=== PATIENT | female | born 1960 | race Caucasian/White ===

== ENCOUNTER 2021-01-03 08:34 | Outpatient (CLI) | payer MEDICARE, SELFPAY ==
--- NOTE | ~2021-01-03 | XR_ITS ---
MODIFIED ESOPHAGRAM HISTORY: Dysphagia. Stroke. TECHNIQUE: Modified barium esophagram was performed on 01/03/2021. I administered fluoroscopy and perfo rmed the exam with speech pathologist. Patient was seated for lateral fluoroscopic imaging for inges tion of thin liquids, pudding, solids and quantified amounts, followed by thin liquids in uncontrolle d amounts. This was recorded on tape. A single fluoroscopic spot image was also recorded. The DAP for this procedure was 2.101 Gycm2. The amount of fluoroscopy time used during this procedure was 2.8 mi nutes. FINDINGS: Oral stage: Moderate oral dysphagia in the preparatory and transit stage.. Pharyngeal stage: Reduced laryngeal elevation with transient laryngeal penetration without aspiration . Cervical/esophageal stage: Adequate function. IMPRESSION: Moderate oral and mild pharyngeal dysphagia with transient laryngeal penetration without aspiration. Please correlate with speech pathologist findings and specific feeding recommendations. Reviewed, dictated and finalized at location [facility]. IMPRESSION: Moderate oral and mild pharyngeal dysphagia with transient laryngea l penetration without aspiration. Please correlate with speech pathologist milton grullon and specific feeding recommendations.
--- NOTE | 2021-01-03 14:03 | STOPEVAL ---
MODIFIED BARIUM SWALLOW EVALUATION: Thank you for referring Marilyn Ram to [facility].? Attending Provider: Ирина Watts Outpatient Past Medical History Past Medical History Source of Past Medical History [facility] Records Neurological History Hx Cerebrovascular Accident (CVA) Yes: with aphasia, ataxia, dysphagia,memory impairment, & HP Cardiovascular History Hx Hypertension Yes Respiratory History Hx Bronchitis Yes Hx Chronic Obstructive Pulmonary Disease Yes (COPD) Gastrointestinal History Hx Gastroesophageal Reflux Disease Yes Hx Other Gastrointestinal Disorders Yes: G-tube Musculoskeletal History Hx Other Musculoskeletal Disorders Yes: generalized muscle weakness; h/o falling HEENT History Hx Other HEENT Disorders Yes: allergic rhinitis Psychosocial History Hx Anxiety Yes Hx Depression Yes Pain History Has Past Pain Affected Your Daily Life Yes: acute pain due to trauma Other History Hx Other Medical Conditions Yes: Vitamin D & iron deficiencies; hypercholesterolemia Prior Level of Function Prior Swallow Level Prior Intake Method NPO/PEG Modified Barium Swallow Evaluation Recent Swallowing History Reports Dysphagia Yes: per [place] records Onset of Dysphagia unknown onset History of Related Medical Diagnosis CVA History of Pneumonia No Reported Difficult Consistencies Unable to Identify Intake Method Prior to Swallow Gastrostomy,NPO Evaluation Dentition Comments missing teeth Consistency Solid Consistency Other Amount crumbled Method of Presentation Spoon Oral Preparatory Symptoms Anterior Loss,Loss of Bolus Control,Premature Spill Posterior Oral Phase Symptoms Disturbed Lingual Movement, Residue in Lateral Sulcus,Slow Oral Transit Oral Phase Comments slow and difficulty formulating contents into a bolus Pharyngeal Phase Symptoms Within Functional Limits Severity of Vallecular Residue None - 0% No Residue Severity of Pyriform Sinus Residue None - 0% No Residue 8 Point Laryngeal Penetration-Aspiration Material Does Not Enter Airway Scale Cervical/Esophageal Symptoms Within Functional Limits Pureed Consistency Method of Presentation Spoon Oral Preparatory Symptoms Anterior Loss,Loss of Bolus Control Oral Preparatory Phase Comments oral leakage but pt also spit out a portion of contents Oral Phase Symptoms Disturbed Lingual Moveme
== END 2021-01-03 08:35 | disposition home or self-care (01) ==
PROVIDERS: PCP Internal Medicine
DX: R13.10 Dysphagia, unspecified (principal)
CPT/HCPCS: 92611

== ENCOUNTER 2021-01-18 15:51 | Inpatient (IN) | payer MEDICARE, SELFPAY ==
[2021-01-18] VITALS (9 sets, daily range): BP systolic 168–201; BP diastolic 73–99; PULSE 80–106; RESP 18–20; TEMP 37.1–37.2; O2SAT 95–100; BMI 20.1
--- NOTE | ~2021-01-18 | XR_ITS ---
XR abdomen obstructive series DATE: 01/18/2021 16:52 INDICATION: Nausea and vomiting for one month TECHNIQUE: Portable supine and upright AP view COMPARISON: None FINDINGS: There are healing fractures of the anterolateral aspect of the fifth through ninth ribs. Multiple faceted calcified gallstones are noted overlying the right upper quadrant. The gastrostomy tube overlies the medial right upper quadrant. No bowel obstruction or free air. Normal heart size. The lungs are clear. IMPRESSION: Cholelithiasis Gastrostomy tube Healing right rib fractures Reviewed, dictated and finalized at [facility]. Reviewed, dictated and finalized at location [facility].
--- NOTE | ~2021-01-18 | CT_ITS ---
EXAMINATION: CT abdomen pelvis w con DATE: 01/18/2021 18:08 INDICATION: Abdominal pain, nausea and vomiting TECHNIQUE: Computed tomography (CT) of the abdomen and pelvis was performed with 100 cc Omnipaque 350 intravenous contrast. Automated exposure control and iterative reconstruction technique were employe d. Exam dose: 228.70 mGy-cm total exam DLP. COMPARISON: 01/18/2021 obstructive series FINDINGS: There is discoid atelectasis or scarring in the dependent left and right lower lobes and to a lesser extent middle lobe. Multiple healing anterolateral right lower ribs. Normal heart size. No pericardial or pleural effusion. There are multiple faceted gallstones. There is gallbladder wall thickening and mild pericholecystic fluid or fat stranding suggesting acute cholecystitis. No bile duct or pancreatic duct dilatation. No hepatic mass lesion. Diffuse hepatic steatosis. Splenic size is within normal limits. No pancreati c mass lesion or calcification. Normal morphology of the adrenal glands. No renal mass lesion or urinary tract calculus or hydroureteronephrosis. The urinary bladder is unrem arkable. Fibroid uterus. There is atherosclerotic calcification of the abdominal aorta and iliac and femoral arteries but no a neurysm. No intraperitoneal or retroperitoneal or pelvic mass lesion or adenopathy or ascites Small sliding hiatal hernia. Normal appendix. No bowel obstruction, bowel wall thickening, pneumatosis or intraperitoneal free air . Small fat-containing umbilical hernia. No suspicious osteolytic or osteoblastic lesions. IMPRESSION: Gallbladder distention, gallstones, gallbladder wall thickening and pericholecystic flui d or fat stranding, suggesting acute cholecystitis Hepatic steatosis Small sliding hiatal hernia Normal appendix Fibroid uterus Multiple healing right rib fractures Reviewed, dictated and finalized at [facility]. Reviewed, dictated and finalized at location A. IMPRESSION: Gallbladder distention, gallstones, gallbladder wall thickening an d pericholecystic fluid or fat stranding, suggesting acute cholecystitis Hepatic steatosis Small sliding hiatal hernia Normal appendix Fibroid uterus Multiple healing right rib fractures
--- NOTE | ~2021-01-18 | CT_ITS ---
EXAMINATION: CT abdomen pelvis w con DATE: 01/23/2021 14:57 INDICATION: Prudencio bleeding post previous cholecystostomy tube placement. TECHNIQUE: Computed tomography (CT) of the abdomen and pelvis was performed with 100 mL Omnipaque-350 intravenous contrast. Automated exposure control and iterative reconstruction technique were employe d. The dose-length product was 486.79 mGy-cm. COMPARISON: CT dated 01/18/2021 FINDINGS: Mild discoid atelectasis at the medial left lower lobe. Heart size is normal. No pericardial or pleur al effusion. Small sliding-type hiatal hernia. Percutaneous gastrostomy tube bulb within the lumen of the gastric antrum. Interval placement of a pe rcutaneous cholecystostomy tube via transhepatic approach with formed loop in expected position withi n the lumen of the fundus of the gallbladder. The gallbladder is now decompressed around several elisha pherally calcified gallstones within the lumen of the gallbladder. Wall thickening of the gallbladder and minimal pericholecystic fat stranding consistent with acute cholecystitis. No evident hematoma o r active contrast extravasation. Mild diffuse hepatic steatosis. Spleen, pancreas, bilateral adrenal glands and kidneys are normal. Jp wels including the appendix are normal. Bladder and bilateral adnexa are unremarkable. Fibroid uterus . No free intraperitoneal gas or fluid. No pathologically enlarged abdominal or pelvic lymphadenopath y. There is calcified atherosclerosis of the aorta and many of the other arteries. L2 hemangioma. IMPRESSION: 1. Cholelithiasis and acute cholecystitis with interval placement of a percutaneous gastrostomy tube via transhepatic approach which is in expected position with interval decompression of the gallbladde r. No evident hematoma or active contrast extravasation. 2. Small sliding-type hiatal hernia. 3. Fibroid uterus. Reviewed, dictated and finalized at location [facility]. IMPRESSION: 1. Cholelithiasis and acute cholecystitis with interval placement of a percutan eous gastrostomy tube via transhepatic approach which is in expected position w ith interval decompression of the gallbladder. No evident hematoma or active co ntrast extravasation. 2. Small sliding-type hiatal hernia. 3. Fibroid uterus.
--- NOTE | ~2021-01-18 | US_ITS ---
EXAMINATION: US perc cholecystostomy w imag DATE: 01/20/2021 13:09 INDICATION: Acute cholecystitis TECHNIQUE: The procedure including the risks and benefits was discussed with the patient. Risks discu ssed included bleeding including hemorrhage and bile peritonitis. Oral and written consent were obtai rosio. The patient was confirmed to be receiving appropriate antibiotic coverage. The skin overlying t he liver and gallbladder was prepped and draped in usual sterile fashion. Anesthetic was administere d with 1% lidocaine subcutaneously and at the gallbladder wall. An 8.5 Fr catheter was inserted thro ugh liver parenchyma into the gallbladder by trocar technique. The metal stiffener and trocar needle were removed, and the pigtail tip was locked. Bile was aspirated and sent for culture. The catheter w as stitched to the skin with suture. Anabiotic ointment and a sterile dressing were applied. An addit ional adhesive fixation device was applied. There were no immediate complications. FINDINGS: The gallbladder is dilated with wall thickening and stones and sludge, consistent with acut e cholecystitis. Ultrasound images demonstrate the catheter within the gallbladder. 20 mL black-color ed bile was aspirated and sent to the lab for Gram stain and aerobic, anaerobic and fungal cultures. Final images show the formed pigtail catheter tip in the gallbladder. IMPRESSION: 1. Successful ultrasound-guided cholecystostomy tube placement. 2. 20 mL bile was sent for aerobic, anaerobic, and fungal cultures. 3. The catheter will be managed by Dr. Tse. A catheter cholangiogram may be performed not less than 48 hours after tube placement if clinically indicated to assess cystic duct patency. If cholecystec timmy is not eventually performed and the infectious episode has resolved, the tube may be removed ove r a guidewire, preferably not less than 3 weeks after placement to allow time for a mature catheter t ract to form to prevent bile leakage and peritonitis. Reviewed, dictated and finalized at location A. IMPRESSION: 1. Successful ultrasound-guided cholecystostomy tube placement. 2. 20 mL bile was sent for aerobic, anaerobic, and fungal cultures. 3. The catheter will be managed by Dr. Tse. A catheter cholangiogram may be p erformed not less than 48 hours after tube placement if clinically indicated to assess cystic duct patency. If cholecystectomy is not eventually performed an d the infectious episode has resolved, the tube may be removed over a guidewire , preferably not less than 3 weeks after placement to allow time for a mature c atheter tract to form to prevent bile leakage and peritonitis.
[2021-01-18 16:18] LABS: Basophils Percent Auto 0.3 % (0.2-1.2); Eosinophils Absolute Auto 0.1 K/mm3 (0-0.3); Eosinophils Percent Auto 0.6 % (0-4.4); Hematocrit 33.7 % (37.0-47.0); Immature Granulocyte Absolute 0.03 K/mm3 (0.00-0.031); Immature Granulocyte Percent A 0.3 % (0-0.5); Lymphocytes Absolute Auto 1.12 K/mm3 (0.9-3.2); Lymphocytes Percent Auto 9.5 % (18.3-44.2); Mean Corpuscular HGB Conc 32.6 g/dl (32-36); Mean Corpuscular Hemoglobin 25.8 pg (26-34); Mean Corpuscular Volume 78.9 fl (80-100); Mean Platelet Volume 10.2 fl (7.4-10.4); Monocytes Absolute Auto 0.7 K/mm3 (0.1-0.6); Monocytes Percent Auto 6.3 % (2.6-8.5); Neutrophils Absolute Auto 9.8 K/mm3 (1.3-6.7); Platelet Count Result 271 k/mm3 (150-375); Red Blood Count 4.27 M/mm3 (4.2-5.4); Red Cell Distribution Width 15.3 % (11.5-14.5); White Blood Count 11.8 K/mm3 (4.5-10.0)
[2021-01-18 16:28] LABS: Alanine Aminotransferase 19 U/L (4-35); Albumin Level 4.2 g/dL (3.5-5.1); Alkaline Phosphatase 122 U/L (38-126); Anion Gap 8 mmol/L (8-16); Aspartate Amino Transferase 24 U/L (14-36); Bilirubin,Total 0.5 mg/dL (0.2-1.3); Blood Urea Nitrogen 16 mg/dL (7-17); Carbon Dioxide 34 mmol/L (22-30); Chloride 91 mmol/L (98-107); Estimated Glomerular Filt Rate > 60; Glucose 270 mg/dL (65-105); Lipase 49 U/L (23-300); Potassium 3.4 mmol/L (3.4-5.0); Sodium 133 mmol/L (137-145)
[2021-01-18 17:00] LABS: Add Urine Microscopic? YES; Amorphous Sediment Urine Moderate; Appearance Urine Cloudy (Clear); Bilirubin Urine Negative (Negative); Blood Urine Negative (Negative); Color Urine Yellow (Yellow); Glucose Urine UA 2+ mg/dL (Negative); Ketones Urine Negative (Negative); Leukocyte Esterase Ur 2+ LEU/UL (Negative); Mucus Urine Rare /lpf; Nitrate Urine Negative (Negative); Protein Urine Negative (Negative); RBC Urine 0-2 /hpf (0-2); Specific Grav Ur 1.016 (1.001-1.035); Squamous Epithelial Cell Urine Many /hpf (Few)
--- NOTE | 2021-01-18 17:38 | ED.GENADULT ---
HPI - General Adult General Chief complaint: Nausea/Vomiting/Diarrhea Stated complaint: n/v, abd pain Time Seen by Provider: 01/18/21 16:08 Source: patient Mode of arrival: EMS Limitations: clinical condition History of Present Illness HPI narrative: 60-year-old with a history of CVA, aphasia, s/p G-tube, GERD [facility] of [facility] and vomiting. Patient states that she has been having vomiting on and off for last 2 days. She denies any fever or chills. Limited history from the patient secondary to her medical condition. Onset (ago): day(s) (2) Location: abdomen Severity: mild Pain Consistency: constant Exacerbating factors: none Associated symptoms: denies other symptoms Related Data Home Medications Medication Instructions Recorded Confirmed albuterol 90 mcg/actuation aerosol mcg INHALATION 01/16/21 inhaler amlodipine 5 mg tablet 5 mg PO DAILY 01/16/21 aspirin 81 mg chewable tablet 81 mg PO DAILY 01/16/21 atorvastatin 80 mg tablet 80 mg PO DAILY 01/16/21 bisacodyl 10 mg rectal suppository 10 mg RECTAL DAILY PRN 01/16/21 carvedilol 3.125 mg tablet 3.125 mg PO Q12H 01/16/21 cholecalciferol (vitamin D3) 25 25 mcg PO DAILY 01/16/21 mcg (1,000 unit) capsule famotidine 20 mg tablet 20 mg PO DAILY 01/16/21 fluoxetine 20 mg capsule 20 mg PO DAILY 01/16/21 furosemide 40 mg tablet 40 mg PO BID 01/16/21 hydrocodone 5 mg-acetaminophen 325 1 tablet PO Q8H PRN 01/16/21 mg tablet loratadine 10 mg capsule 10 mg PO DAILY 01/16/21 losartan 100 mg tablet 100 mg PO DAILY 01/16/21 magnesium citrate 100 mg capsule 100 mg PO DAILY 01/16/21 Allergies Allergy/AdvReac Type Severity Reaction Status Date / Time No Known Allergies Allergy Verified 01/18/21 16:04 Review of Systems Review of Systems: ROS unobtainable: Yes unobtainable due to medical condition PMFSH Past Medical History Medical History COPD (chronic obstructive pulmonary disease) Depression High cholesterol Hypertension Stroke Surgical History Surgical History History of ankle surgery Family History Family History Other Cancer Cerebrovascular accident Diabetes mellitus Heart disease Hypertension Social History Social History Smoking status: Current every day smoker Tobacco type: cigarettes Alcohol intake: never Additional occupation/education comments: disabled Exam Narrative: Exam Narrative: GENERAL: Ill appearing, well-nourished, and in no acute distress. Has a aphasia HEAD: Normocephalic, atraumatic. EYES: PERRLA and EOMI. ENT: Nares clear, no rhinorrhea or epistaxis. Mucous membranes moist. NECK: Supple. CHEST: Clear to auscultation. No respiratory distress. HEART: Regular rate and rhythm. No murmur heard. Normal peripheral pulses. ABDOMEN: Soft, tender, has G tube nondistended, normal active bowel sounds. EXTREMITIES: Normal range of motion. No edema. SKIN: Warm, dry, no rash. NEURO: Has aphasia . Alert . PSYCH: Normal mood and affect. Course Course Emergency Course: Discussed with [facility] agreed to admit patient consult to Dr. Tse recommended to start Zosyn we will see the patient in consult. Vital Signs Vital signs: Vital Signs Temperature 37.2 C 01/18/21 15:47 Pulse Rate 102 H 01/18/21 15:47 Respiratory Rate 01/18/21 15:47 Blood Pressure 183/93 H 01/18/21 15:47 Pulse Oximetry 95 01/18/21 15:47 Temperature 37.2 C 01/18/21 15:47 Pulse Rate 101 H 01/18/21 17:33 Respiratory Rate 01/18/21 17:33 Blood Pressure 187/98 H 01/18/21 17:33 Pulse Oximetry 95 01/18/21 17:33 Medical Decision Making Vital Signs Vital Signs: Vital Signs Temperature 37.2 C 01/18/21 15:47 Pulse Rate 102 H 01/18/21 15:47 R
--- NOTE | 2021-01-18 20:18 | ADMGEN ---
This patient, Marilyn Ram, was admitted to [facility] Surg Room 329-01. Patient/family oriented to hospital policies and general routines including ID bracelet, bed and alarms, visiting hours, pain management, procedures, bathroom and other care routines, personal items, smoking policy, room service/diet, and visiting hours. Information on how to activate the Rapid Response Team has been discussed. Patient/Family are encouraged to report perceived risks to care and to ask questions if they do not understand what they are told or what they should do.
[2021-01-18] MEDS: ONDANSETRON INJ 4 MG/2 ML VIAL IV PUSH (21:00)
[2021-01-18] MEDS: hydrALAZINE HCL 20 MG/ML VIAL 10 MG IV PUSH (21:00)
[2021-01-18] MEDS: MORPHINE SULFATE (*CRX) 4 MG/ML INJ IV PUSH (21:41)
--- NOTE | 2021-01-18 21:55 | PM.IMHP ---
H&P: HPI History of Present Illness Date/Time: 01/18/21 21:55 this is a 60-year-old female patient who comes from [facility] [place]. She has a history of a stroke and lives on G-tube feedings for nutrition. The patient has had nausea vomiting for 2 days. She tells me that she has not had any problems with her gallbladder in the past. White count was noted to be 11.8. Potassium slightly low at 3.4. Sodium 133. Abdominal x-ray impression cholelithiasis G-tube healing right rib fractures. Abdominal pelvis CT was read as gallbladder distension, gallstones, gallbladder wall thickening and pericholecystic fluid or fat stranding, suggesting acute cholecystitis. Hepatic steatosis. Surgery was consulted from the emergency room. The patient was started on Zosyn in the emergency room. The patient is being admitted to inpatient status on the date of service 01/18/2021. Chief Complaint: Nausea with vomiting and abdominal pain Review of Systems Constitutional: Constitutional: Reports as per HPI and Reports no additional constitutional complaints Eyes: Eyes: Reports as per HPI and Reports no additional eye complaints ENT: Reports system reviewed and no additional complaints, except as documented and Reports Normal hearing present Cardiovascular: Cardiovascular: Reports no additional cardiovascular complaints Respiratory: Respiratory: Reports as per HPI and Reports no additional respiratory complaints Gastrointestinal: Gastrointestinal: Reports as per HPI and Reports no additional gastrointestinal complaints Genitourinary: Genitourinary: Reports no additional female genitourinary complaints Musculoskeletal: Musculoskeletal: Reports no additional musculoskeletal complaints Integumentary/Breasts: Skin/Breast: Reports system reviewed and no additional complaints, except as docu Neurologic: Reports system reviewed and no additional complaints, except as documented and Reports Normal hearing present Psychiatric: Psychiatric: Reports no additional psychiatric complaints and Reports as per HPI Hematologic/Lymphatic: Hematologic/Lymphatic: Reports no additional hematologic/lymphatic complaints Allergic/Immunologic: Allergic/Immunologic: Reports no additional allergic/immunologic complaints [facility] Past Medical History Medical History (Updated 01/18/21 @ 22:25 by Joselyn Gant NP) COPD (chronic obstructive pulmonary disease) Depression G tube feedings High cholesterol Hypertension Stroke Tobacco abuse Surgical History Surgical History History of ankle surgery Family History Family History Other Cancer Cerebrovascular accident Diabetes mellitus Heart disease Hypertension Social History Social History (Updated 01/18/21 @ 22:06 by Joselyn Gant NP) Social History: The patient is . She has 2 sons. The patient tells me that she is going to go live with her son when she is out of the shelter. The patient is disabled. The patient still continues to smoke less than a pack a cigarettes a day. She denies any alcohol or illicit drugs. She is listed as a full code. Smoking packs per day: 0.5 Smoking cigarettes per day: 10.0 Smoking status: Current every day smoker Tobacco type: cigarettes Alcohol intake: never Additional occupation/education comments: disabled Meds Home Medications and Allergies Home Medications Medication Instructions Recorded Confirmed Type albuterol 90 mcg/actuation aerosol mcg INHALATION 01/16/21 History inhaler amlodipine 5 mg tablet 5 mg PO DAILY 01/16/21 History aspirin 81 mg chewable tablet 81 mg PO DAILY 01/16/21 History atorvastatin 80 mg tablet 80 mg PO DAILY 01/16/21 History bisacodyl 10 mg rectal suppository 10 mg RECTAL DAILY PRN 01/16/21 History carvedilol 3.125 mg tablet 3.125 mg PO Q12H 01/16/21 History cholecalciferol (vi
[2021-01-18] MEDS: SODIUM CHLORIDE 0.9% IV 1,000 ML 125 ML IV CONT (22:52)
[2021-01-19] VITALS (8 sets, daily range): BP systolic 149–173; BP diastolic 65–86; PULSE 93–120; RESP 17–24; TEMP 36.6–36.9; O2SAT 95–97
[2021-01-19] MEDS: SODIUM CHLORIDE 0.9% IV 1,000 ML 125 ML IV CONT (06:10)
[2021-01-19 06:39] LABS: Basophils Percent Auto 0.1 % (0.2-1.2); Eosinophils Percent Auto 0.1 % (0-4.4); Hematocrit 34.3 % (37.0-47.0); Hemoglobin 11.1 g/dL (12.0-15.0); Immature Granulocyte Percent A 0.6 % (0-0.5); Lymphocytes Absolute Auto 0.91 K/mm3 (0.9-3.2); Lymphocytes Percent Auto 5.5 % (18.3-44.2); Mean Corpuscular HGB Conc 32.4 g/dl (32-36); Mean Corpuscular Hemoglobin 25.7 pg (26-34); Mean Corpuscular Volume 79.4 fl (80-100); Mean Platelet Volume 10.5 fl (7.4-10.4); Monocytes Absolute Auto 1.1 K/mm3 (0.1-0.6); Monocytes Percent Auto 6.7 % (2.6-8.5); Neutrophils Absolute Auto 14.5 K/mm3 (1.3-6.7); Platelet Count Result 291 k/mm3 (150-375); Red Blood Count 4.32 M/mm3 (4.2-5.4); Red Cell Distribution Width 15.1 % (11.5-14.5); White Blood Count 16.6 K/mm3 (4.5-10.0)
[2021-01-19 06:56] LABS: Alanine Aminotransferase 17 U/L (4-35); Albumin Level 4.1 g/dL (3.5-5.1); Alkaline Phosphatase 115 U/L (38-126); Anion Gap 12 mmol/L (8-16); Aspartate Amino Transferase 20 U/L (14-36); Bilirubin,Total 0.5 mg/dL (0.2-1.3); Blood Urea Nitrogen 12 mg/dL (7-17); Calcium 9.9 mg/dL (8.4-10.2); Carbon Dioxide 28 mmol/L (22-30); Chloride 97 mmol/L (98-107); Estimated CRCL calculation 88 ml/min; Estimated Glomerular Filt Rate > 60; Glucose 235 mg/dL (65-105); Potassium 2.9 mmol/L (3.4-5.0); Sodium 137 mmol/L (137-145)
--- NOTE | 2021-01-19 08:29 | PM.CNGS ---
Assessment and Plan Assessment and plan (1) Acute cholecystitis: Code(s): K81.0 - Acute cholecystitis Status: Acute Assessment and Plan: cont abx, will setup for perc cholecystostomy given comorbid conditions and poor anesthetic/surgical candidate (2) Stroke: Qualifiers: CVA mechanism: unspecified Qualified Code(s): I63.9 - Cerebral infarction, unspecified Code(s): I63.9 - Cerebral infarction, unspecified Status: Chronic Assessment and Plan: fed thru G tube, aphasic, residual weakness (3) COPD (chronic obstructive pulmonary disease): Qualifiers: COPD type: unspecified COPD Qualified Code(s): J44.9 - Chronic obstructive pulmonary disease, unspecified Code(s): J44.9 - Chronic obstructive pulmonary disease, unspecified Status: Chronic Assessment and Plan: stable (4) Tobacco abuse: Code(s): Z72.0 - Tobacco use Status: Chronic Assessment and Plan: smoking cessation discussed History of Present Illness Consult details Consult date: 01/19/21 Reason for consult: abdominal pain Requesting physician: Raoul Austin MD Narrative: Pt is a 60 y/o F c multiple med issues including CVA presenting from [facility] c/o upper abdominal pain, N/V. Pt is somewhat aphasic and lethargic this am so most history is obtained via chart. Pt states symptoms worsening over last wk or so. Pt is fed via G tube. Review of Systems Review of Systems: ROS unobtainable: Yes unobtainable due to medical condition and unobtainable due to mental status PMFSH Past Medical History Medical History COPD (chronic obstructive pulmonary disease) Depression G tube feedings High cholesterol Hypertension Stroke Tobacco abuse Surgical History Surgical History History of ankle surgery Family History Family History Other Cancer Cerebrovascular accident Diabetes mellitus Heart disease Hypertension Social History Social History Social History: The patient is . She has 2 sons. The patient tells me that she is going to go live with her son when she is out of the [facility]. The patient is disabled. The patient still continues to smoke less than a pack a cigarettes a day. She denies any alcohol or illicit drugs. She is listed as a full code. Smoking packs per day: 0.5 Smoking cigarettes per day: 10.0 Smoking status: Current every day smoker Tobacco type: cigarettes Alcohol intake: never Substance use: never Substance use type: does not use Additional occupation/education comments: disabled Spiritual care concerns: No Meds Home Medications and Allergies Home Medications Medication Instructions Recorded Confirmed Type albuterol 90 mcg/actuation aerosol 108 mcg INHALATION DAILY 01/16/21 01/18/21 History inhaler amlodipine 5 mg tablet 5 mg FEEDING TUBE DAILY 01/16/21 01/18/21 History aspirin 81 mg chewable tablet 81 mg FEEDING TUBE DAILY 01/16/21 01/18/21 History atorvastatin 80 mg tablet 80 mg PO HS 01/16/21 01/18/21 History bisacodyl 10 mg rectal suppository 10 mg RECTAL DAILY PRN 01/16/21 01/18/21 History carvedilol 3.125 mg tablet 3.125 mg FEEDING TUBE TID 01/16/21 01/18/21 History cholecalciferol (vitamin D3) 25 25 mcg FEEDING TUBE WEEKLY 01/16/21 01/18/21 History mcg (1,000 unit) capsule famotidine 20 mg tablet 20 mg FEEDING TUBE BID 01/16/21 01/18/21 History fluoxetine 20 mg capsule 20 mg FEEDING TUBE DAILY 01/16/21 01/18/21 History furosemide 40 mg tablet 40 mg FEEDING TUBE DAILY 01/16/21 01/18/21 History hydrocodone 5 mg-acetaminophen 325 1 tablet FEEDING TUBE BID PRN 01/16/21 01/18/21 History mg tablet loratadine 10 mg capsule 10 mg FEEDING TUBE DAILY 01/16/21 01/18/21 History losa
[2021-01-19] MEDS: METOPROLOL TARTRATE INJ 5 MG/5 ML VIAL IV PUSH ×4 (08:56→20:27)
[2021-01-19 13:32] LABS: Anion Gap 13 mmol/L (8-16); Blood Urea Nitrogen 11 mg/dL (7-17); Calcium 9.9 mg/dL (8.4-10.2); Carbon Dioxide 24 mmol/L (22-30); Chloride 97 mmol/L (98-107); Estimated CRCL calculation 106 ml/min; Estimated Glomerular Filt Rate > 60; Glucose 342 mg/dL (65-105); Magnesium 1.6 mg/dL (1.6-2.3); Potassium 3.6 mmol/L (3.4-5.0); Sodium 134 mmol/L (137-145)
--- NOTE | 2021-01-19 15:22 | PM.IMPN ---
Progress Note: A&P Assessment and Plan (1) Acute cholecystitis: Code(s): K81.0 - Acute cholecystitis Status: Acute Assessment and Plan: Patient presents with nausea/vomiting/abdominal pain. CT abdomen/pelvis on arrival demonstrates findings suggestive of acute cholecystitis. Appreciate general surgery consultation. Patient visited Dr Oates in the office Wednesday01/16/21; his notes indicate she was offered laparoscopic cholecystectomy and patient was willing to proceed at that time. She is evaluated by Dr Tse this morning and percutaneous cholecystostomy tube has been offered. Will touch base with surgery in AM. Start tube feeds at a slow rate and will stop at midnight. Continue IV Zosyn (day 1). IV fluids stopped in light of resuming her tube feeds this morning. (2) Gastrostomy status: Code(s): Z93.1 - Gastrostomy status Status: Acute Assessment and Plan: Patient has been receiving G-tube feedings since her stroke. longterm records indicate her feed schedule is as follows: Bolus G tube feeds with Glucerna 360 mL 4 times daily with 180 mL water flush 4 times daily. longterm records also indicate she was having a pureed consistency, regular liquid diet with one-to-one supervision for meals. Upright in wheelchair for all meals with small bites/sips and has a repeat modified barium swallow scheduled for 01/29/2021; although when I ask her if she has really been eating or getting medications by mouth lately, she shakes her head no . (3) Hypertension: Qualifiers: Hypertension type: essential hypertension Qualified Code(s): I10 - Essential (primary) hypertension Code(s): I10 - Essential (primary) hypertension Status: Chronic Assessment and Plan: Appears patient takes norvasc, carvedilol, losartan, lasix through G tube. These medications are held. She has been maintained on scheduled IV metoprolol and blood pressures are a bit elevated. Hydralazine PRN. (4) Stroke: Qualifiers: CVA mechanism: unspecified Qualified Code(s): I63.9 - Cerebral infarction, unspecified Code(s): I63.9 - Cerebral infarction, unspecified Status: Chronic Assessment and Plan: From the history I can obtain from the patient it seems she had hemorrhagic stroke around 1 month ago. She is at rehab and has right-sided weakness. She has expressive aphasia with seemingly intact comprehension; able to answer yes / no questions pretty reliably. (5) Depression: Qualifiers: Depression Type: unspecified Qualified Code(s): F32.9 - Major depressive disorder, single episode, unspecified Code(s): F32.9 - Major depressive disorder, single episode, unspecified Status: Chronic Assessment and Plan: Home G tube meds are held at present. Resume once surgical plan is established. (6) COPD (chronic obstructive pulmonary disease): Qualifiers: COPD type: unspecified COPD Qualified Code(s): J44.9 - Chronic obstructive pulmonary disease, unspecified Code(s): J44.9 - Chronic obstructive pulmonary disease, unspecified Status: Chronic Assessment and Plan: No respiratory distress. Albuterol PRN. Subjective Date/time seen: 01/19/21 1330 Interval history: Ms. Ram is a 60yo F admitted with acute cholecystitis. She is a bit difficult to communicate with given her residual aphasia from what seems to be a fairly recent CVA. She is able to nod her head yes and no to most questions. It seems her abdominal pain has improved a bit compared to yesterday. She denies nausea or vomiting today. She denies chest pain, shortness of breath, or coughing. We just restarted her
[2021-01-19] MEDS: MAGNESIUM SULF 2 GM/WATER 50ML 2 GM/50 ML BAG IVPB (16:50)
[2021-01-20] VITALS (8 sets, daily range): BP systolic 141–154; BP diastolic 67–76; PULSE 94–100; RESP 16–18; TEMP 36.4–37.5; O2SAT 95–97; BMI 20.1
[2021-01-20 06:22] LABS: Basophils Percent Auto 0.2 % (0.2-1.2); Eosinophils Absolute Auto 0.1 K/mm3 (0-0.3); Eosinophils Percent Auto 0.4 % (0-4.4); Hematocrit 31.7 % (37.0-47.0); Hemoglobin 10.2 g/dL (12.0-15.0); Immature Granulocyte Percent A 0.6 % (0-0.5); Lymphocytes Absolute Auto 1.31 K/mm3 (0.9-3.2); Lymphocytes Percent Auto 8.1 % (18.3-44.2); Mean Corpuscular HGB Conc 32.2 g/dl (32-36); Mean Corpuscular Hemoglobin 25.4 pg (26-34); Mean Corpuscular Volume 79.1 fl (80-100); Mean Platelet Volume 10.3 fl (7.4-10.4); Monocytes Absolute Auto 1.2 K/mm3 (0.1-0.6); Monocytes Percent Auto 7.6 % (2.6-8.5); Neutrophils Absolute Auto 13.4 K/mm3 (1.3-6.7); Neutrophils Percent Auto 83.1 % (45.5-73.1); Platelet Count Result 293 k/mm3 (150-375); Red Blood Count 4.01 M/mm3 (4.2-5.4); Red Cell Distribution Width 15.1 % (11.5-14.5); White Blood Count 16.2 K/mm3 (4.5-10.0)
[2021-01-20 06:33] LABS: Alanine Aminotransferase 14 U/L (4-35); Albumin Level 3.8 g/dL (3.5-5.1); Alkaline Phosphatase 101 U/L (38-126); Anion Gap 10 mmol/L (8-16); Aspartate Amino Transferase 29 U/L (14-36); Bilirubin,Total 0.5 mg/dL (0.2-1.3); Blood Urea Nitrogen 17 mg/dL (7-17); Calcium 9.8 mg/dL (8.4-10.2); Carbon Dioxide 28 mmol/L (22-30); Chloride 97 mmol/L (98-107); Estimated CRCL calculation 106 ml/min; Estimated Glomerular Filt Rate > 60; Glucose 235 mg/dL (65-105); Magnesium 1.8 mg/dL (1.6-2.3); Sodium 135 mmol/L (137-145)
[2021-01-20 08:04] LABS: Glucose Point of Care 253 mg/dl (65-105)
[2021-01-20] MEDS: METOPROLOL TARTRATE INJ 5 MG/5 ML VIAL IV PUSH ×2 (08:20→13:35)
[2021-01-20 08:29] LABS: Hemoglobin A1C 7.5 % (<5.7)
[2021-01-20] MEDS: INSULIN ASPART (*BKC) 100 UNITS/ML SUB-Q ×2 (08:34→17:30)
[2021-01-20 08:40] LABS: INR 1.1; Prothrombin Time 14.3 Seconds (11.1-14.7)
--- NOTE | 2021-01-20 11:30 | PM.IMPN ---
Progress Note: A&P Assessment and Plan (1) Acute cholecystitis: Code(s): K81.0 - Acute cholecystitis Status: Acute Assessment and Plan: Patient presents with nausea/vomiting/abdominal pain. CT abdomen/pelvis on arrival demonstrated findings suggestive of acute cholecystitis. Appreciate general surgery input. She is going to have percutaneous cholecystostomy tube placed today. Continue IV Zosyn (day 2). (2) Gastrostomy status: Code(s): Z93.1 - Gastrostomy status Status: Acute Assessment and Plan: Resume tube feedings slowly this afternoon - Glucerna 1.2 continuous; start at 20mL/hr and advance by 10mL every 4 hours for goal of 60mL/hr Hopefully once she is tolerating continuous feeds again without abdominal pain/N/V she can get back on her bolus feed schedule prior to discharge. Patient has been receiving G-tube feedings since her stroke. [facility] records indicate her feed schedule is as follows: Bolus G tube feeds with Glucerna 360 mL 4 times daily with 180 mL water flush 4 times daily. [facility] records also indicate she was having a pureed consistency, regular liquid diet with one-to-one supervision for meals. Upright in wheelchair for all meals with small bites/sips and has a repeat modified barium swallow scheduled for 01/29/2021; although when I ask her if she has really been eating or getting medications by mouth lately, she shakes her head no . Will keep her NPO at present given her GI issues and risk of aspiration and continue tube feeds. (3) Hypertension: Qualifiers: Hypertension type: essential hypertension Qualified Code(s): I10 - Essential (primary) hypertension Code(s): I10 - Essential (primary) hypertension Status: Chronic Assessment and Plan: Appears patient takes norvasc, carvedilol, losartan, lasix through G tube. These medications were held because of her procedure today but she has been maintained on scheduled IV metoprolol. Stop IV metoprolol and resume her home meds via G tube. Hydralazine PRN. Monitor BP and adjust treatment as needed. (4) Stroke: Qualifiers: CVA mechanism: unspecified Qualified Code(s): I63.9 - Cerebral infarction, unspecified Code(s): I63.9 - Cerebral infarction, unspecified Status: Chronic Assessment and Plan: From the history I can obtain from the patient it seems she had hemorrhagic stroke around 1 month ago. She is at rehab and has right-sided weakness. She has expressive aphasia with seemingly intact comprehension; able to answer yes / no questions pretty reliably. (5) Depression: Qualifiers: Depression Type: unspecified Qualified Code(s): F32.9 - Major depressive disorder, single episode, unspecified Code(s): F32.9 - Major depressive disorder, single episode, unspecified Status: Chronic Assessment and Plan: Resume home Prozac. (6) COPD (chronic obstructive pulmonary disease): Qualifiers: COPD type: unspecified COPD Qualified Code(s): J44.9 - Chronic obstructive pulmonary disease, unspecified Code(s): J44.9 - Chronic obstructive pulmonary disease, unspecified Status: Chronic Assessment and Plan: No respiratory distress. Albuterol PRN. (7) Hypokalemia: Code(s): E87.6 - Hypokalemia Status: Acute Assessment and Plan: K 3.0 this morning, replaced IV. Recheck this afternoon is 3.7. Mag 1.8, start mag-ox via g tube. Monitor and replace as needed. Subjective Date/time seen: 01/20/21 11:30 Interval history: Ms. Ram is a 60yo F admitted with acute cholecystitis. She is a bit difficult to
[2021-01-20 12:40] LABS: Glucose Point of Care 288 mg/dl (65-105)
--- NOTE | 2021-01-20 12:54 | PM.PNGS ---
Progress Note: A&P Assessment and Plan (1) Acute cholecystitis: Code(s): K81.0 - Acute cholecystitis Status: Acute Assessment and Plan: s/p perc cholecystostomy, cont IV abx, ok to slowly restart TF Subjective Subjective Date/Time Seen: 01/20/21 12:54 Pt seen and examined. Currently, still a little sommulent from procedure. No acute issues overnight Review of Systems Review of Systems: ROS unobtainable: Yes unobtainable due to medical condition and unobtainable due to mental status Exam Const: General: comfortable, no acute distress and ill appearing Orientation/consciousness: lethargic Resp: Auscultation: diminished lung sounds Cardio: Rate: regular rate Rhythm: regular rhythm GI: Inspection: normal to inspection and distended GI Palp: Yes Soft to palpation, Yes Tenderness to palpation present (GI) and Yes Guarding due to palpation present (GI) Other: soft, sl dist, mod TTP RUQ, cholecystostomy C/D/I Objective Data Vital Signs Vital Signs: Vital Signs - 24 hr 01/19/21 14:00 01/19/21 16:50 01/19/21 20:20 Temperature 36.9 C Pulse Rate 98 96 93 Respiratory Rate 24 H 20 Blood Pressure 149/65 H Pulse Oximetry 96 97 01/19/21 20:27 01/19/21 22:00 01/20/21 06:00 Temperature 36.6 C 36.4 C Pulse Rate 96 93 100 Respiratory Rate 20 16 Blood Pressure 159/66 H 154/76 H Pulse Oximetry 97 95 01/20/21 08:20 Temperature Pulse Rate 94 Respiratory Rate Blood Pressure Pulse Oximetry Intake/Output Intake/Output: Intake & Output 01/17/21 01/18/21 01/19/21 01/20/21 23:59 23:59 23:59 23:59 Intake Total 1200 50 Balance 1200 50 Meds/Results Medications: Active Medications Generic Name Dose Route Start Last Admin Trade Name Freq PRN Reason Stop Dose Admin Albuterol 2.5 mg 01/18/21 22:07 Albuterol Sulfate Neb 2.5 Mg/0.5 Ml Inh INHALATION Q6HRT PRN Shortness Of Breath Dextrose 12.5 gm 01/20/21 08:14 Dextrose 50% 25 Gm/50 Ml Syringe IV PUSH PRN PRN Hypoglycemia Protocol Glucagon 1 mg 01/20/21 08:14 Glucagon For Inj 1 Mg Vial IM PRN PRN Hypoglycemia Protocol Glucose 15 gm 01/20/21 08:14 Glucose Oral Gel 15 Gm Of Glucse In 37.5 Gm Tube PO PRN PRN Hypoglycemia Protocol Hydralazine HCl 10 mg 01/18/21 22:01 Hydralazine Hcl 20 Mg/Ml Vial IV PUSH Q8H PRN Blood Pressure - High Piperacillin/Tazobactam/Dextrose 3.375 gm in 50 mls @ 100 mls/hr 01/19/21 00:00 01/20/21 06:13 Zosyn 3.375 Gm/D5w 50ml Pm IVPB 100 mls/hr Q6HR SANDRA Administration Acetaminophen 1,000 mg in 100 mls @ 400 mls/hr 01/18/21 22:46 Ofirmev 1,000 Mg Ivpb IVPB 01/20/21 22:47 Q6H PRN Pain Rated 1-3 Dextrose 1,000 mls @ 100 mls/hr 01/20/21 08:14 Dextrose 5% 1,000 Ml IVPB PRN PRN Hypoglycemia Protocol Insulin Aspart 3 - 6 units 01/20/21 08:15 01/20/21 08:34 Insulin Aspart (*Bkc) 100 Units/Ml SUB-Q 4 units Q6H SANDRA Administration Protocol Metoprolol Tartrate 5 mg 01/19/21 21:00 01/20/21 08:20 Metoprolol Tartrate Inj 5 Mg/5 Ml Vial IV PUSH 5 mg QID SANDRA Administration Morphine Sulfate 2 mg 01/19/21 09:05 Morphine Sulfate (*Crx) 4 Mg/Ml Inj IV PUSH Q4H PRN Pain Rated 7-10 Ondansetron HCl 4 mg 01/18/21 20:43 01/18/21 21:00 Ondansetron Inj 4 Mg/2 Ml Vial IV PUSH 4 mg Q4H PRN Administration Nausea And Vomiting Radiology Results: ITS Impressions Abdomen X-Ray 01/18/21 17:00 IMPRESSION: Cholelithiasis Gastrostomy tube Healing right rib fractures Abdomen/Pelvis CT 01/18/21 18:16 IMPRESSION: Gallbladder distention, gallstones, gallbladder wall thickening and pericholecystic fluid or fat stranding, suggesting acute cholecystitis Hepatic steatosis Small sliding hiatal hernia Normal appendix Fibroid uterus Multiple healing right rib fractures Labs Labs: Laboratory
[2021-01-20 13:51] LABS: Anion Gap 9 mmol/L (8-16); Blood Urea Nitrogen 15 mg/dL (7-17); Calcium 9.5 mg/dL (8.4-10.2); Carbon Dioxide 25 mmol/L (22-30); Chloride 99 mmol/L (98-107); Estimated CRCL calculation 106 ml/min; Estimated Glomerular Filt Rate > 60; Glucose 258 mg/dL (65-105); Potassium 3.7 mmol/L (3.4-5.0); Sodium 133 mmol/L (137-145)
[2021-01-20] MEDS: FAMOTIDINE 20 MG TABLET FEED TUBE (17:24)
[2021-01-20] MEDS: MAGNESIUM OXIDE 400 MG TABLET FEED TUBE (17:24)
[2021-01-20] MEDS: carvediloL 3.125 MG TABLET FEED TUBE (17:25)
[2021-01-20] MEDS: amLODIPine BESYLATE 5 MG TABLET FEED TUBE (17:26)
[2021-01-20 17:54] LABS: Glucose Point of Care 192 mg/dl (65-105)
[2021-01-20] MEDS: ATORVASTATIN 40 MG TABLET 80 MG PO (20:52)
[2021-01-21 06:00] VITALS: BP 146/81; PULSE 100; RESP 16; TEMP 36.7; O2SAT 96
[2021-01-21 06:41] LABS: Alanine Aminotransferase 33 U/L (4-35); Albumin Level 3.4 g/dL (3.5-5.1); Alkaline Phosphatase 110 U/L (38-126); Anion Gap 11 mmol/L (8-16); Aspartate Amino Transferase 42 U/L (14-36); Bilirubin,Total 0.3 mg/dL (0.2-1.3); Blood Urea Nitrogen 20 mg/dL (7-17); Calcium 9.4 mg/dL (8.4-10.2); Carbon Dioxide 26 mmol/L (22-30); Chloride 100 mmol/L (98-107); Estimated CRCL calculation 88 ml/min; Estimated Glomerular Filt Rate > 60; Glucose 192 mg/dL (65-105); Magnesium 1.7 mg/dL (1.6-2.3); Potassium 3.1 mmol/L (3.4-5.0); Sodium 137 mmol/L (137-145)
[2021-01-21 06:42] LABS: Basophils Percent Auto 0.3 % (0.2-1.2); Eosinophils Absolute Auto 0.3 K/mm3 (0-0.3); Hematocrit 29.6 % (37.0-47.0); Hemoglobin 9.6 g/dL (12.0-15.0); Immature Granulocyte Absolute 0.03 K/mm3 (0.00-0.031); Immature Granulocyte Percent A 0.3 % (0-0.5); Lymphocytes Absolute Auto 1.69 K/mm3 (0.9-3.2); Lymphocytes Percent Auto 18.3 % (18.3-44.2); Mean Corpuscular HGB Conc 32.4 g/dl (32-36); Mean Corpuscular Hemoglobin 25.6 pg (26-34); Mean Corpuscular Volume 78.9 fl (80-100); Mean Platelet Volume 10.4 fl (7.4-10.4); Monocytes Absolute Auto 0.8 K/mm3 (0.1-0.6); Monocytes Percent Auto 8.1 % (2.6-8.5); Neutrophils Absolute Auto 6.5 K/mm3 (1.3-6.7); Platelet Count Result 300 k/mm3 (150-375); Red Blood Count 3.75 M/mm3 (4.2-5.4); White Blood Count 9.2 K/mm3 (4.5-10.0)
[2021-01-21 07:49] LABS: Glucose Point of Care 212 mg/dl (65-105)
[2021-01-21] MEDS: INSULIN ASPART (*BKC) 100 UNITS/ML SUB-Q ×2 (07:59→14:34)
[2021-01-21 08:02] VITALS: PULSE 93
[2021-01-21] MEDS: carvediloL 3.125 MG TABLET FEED TUBE ×3 (08:02→16:56)
[2021-01-21] MEDS: MAGNESIUM OXIDE 400 MG TABLET FEED TUBE (08:04)
[2021-01-21] MEDS: amLODIPine BESYLATE 5 MG TABLET FEED TUBE (08:04)
[2021-01-21] MEDS: LOSARTAN POTASSIUM 100 MG TABLET FEED TUBE (08:05)
[2021-01-21] MEDS: FUROSEMIDE 40 MG TABLET FEED TUBE (08:05)
[2021-01-21] MEDS: FLUoxetine HCL 20 MG CAPSULE FEED TUBE (08:05)
[2021-01-21] MEDS: FAMOTIDINE 20 MG TABLET FEED TUBE ×2 (08:05→16:56)
[2021-01-21 08:25] LABS: Glucose Point of Care 208 mg/dl (65-105)
--- NOTE | 2021-01-21 10:15 | PM.PNGS ---
Progress Note: A&P Assessment and Plan (1) Acute cholecystitis: Code(s): K81.0 - Acute cholecystitis Status: Acute Assessment and Plan: Percutaneous cholecystostomy tube placed on 01/20/21 and draining well. Output appears dark red-tinged today, continue to monitor and repeat labs in am. Gram stain showed no organisms or WBCs, cultures pending. WBC down to normal, afebrile. Continue IV abx. Continue to advance tube feedings to goal rate. Additional Plan I have discussed the plan of care with Dr. Oates. Subjective Subjective Date/Time Seen: 01/21/21 09:45 Interval history: Patient seen today with nurse at the bedside. She has hx of stroke and has expressive aphasia and dysphagia with tube feedings through a G-tube for nutrition. She is tolerating her tube feedings. Cholecystostomy tube placed in Radiology yesterday. No vomiting and patient denies any abdominal pain this morning. Review of Systems Review of Systems: ROS unobtainable: Yes unobtainable due to medical condition Exam Const: General: comfortable and no acute distress GI: Inspection: non-distended GI Palp: Yes Soft to palpation, Yes Tenderness to palpation present (GI) (RUQ/epigastric) and No Guarding due to palpation present (GI) Auscultation: normal bowel sounds Other: G-tube in LUQ with tube feedings running. Cholecystostomy tube in place in RUQ with dark red/maroon output in bag. Skin: General skin exam: normal color and no jaundice Extrem: General: no clubbing, cyanosis or edema Psych: Insight: Limited insight present (Psych) Judgement: Limited judgement present (Psych) Objective Data Vital Signs Vital Signs: Vital Signs - 24 hr 01/20/21 13:35 01/20/21 14:00 01/20/21 14:04 Temperature 97.6 F 97.6 F Pulse Rate 97 94 Respiratory Rate 18 Blood Pressure 141/67 H Pulse Oximetry 97 01/20/21 17:25 01/20/21 20:00 01/20/21 22:00 Temperature 99.5 F Pulse Rate 96 100 95 Respiratory Rate 16 16 Blood Pressure 141/70 H Pulse Oximetry 96 95 01/21/21 06:00 01/21/21 08:02 Temperature 98.1 F Pulse Rate 100 93 Respiratory Rate 16 Blood Pressure 146/81 H Pulse Oximetry 96 Intake/Output Intake/Output: Intake & Output 01/18/21 01/19/21 01/20/21 01/21/21 23:59 23:59 23:59 23:59 Intake Total 1200 200 290 Output Total 90 1800 Balance 1200 110 -1510 Meds/Results Medications: Active Medications Generic Name Dose Route Start Last Admin Trade Name Freq PRN Reason Stop Dose Admin Acetaminophen 650 mg 01/20/21 14:57 Acetaminophen 325 Mg Tablet FEED TUBE Q4H PRN Pain 1-6 or Fever Albuterol 2.5 mg 01/18/21 22:07 Albuterol Sulfate Neb 2.5 Mg/0.5 Ml Inh INHALATION Q6HRT PRN Shortness Of Breath Amlodipine Besylate 5 mg 01/20/21 14:55 01/21/21 08:04 Amlodipine Besylate 5 Mg Tablet FEED TUBE 5 mg DAILY SANDRA Administration Atorvastatin Calcium 80 mg 01/20/21 21:00 01/20/21 20:52 Atorvastatin 40 Mg Tablet PO 80 mg HS SANDRA Administration Bisacodyl 10 mg 01/20/21 14:51 Bisacodyl 10 Mg Suppository RECTAL DAILY PRN Constipation Carvedilol 3.125 mg 01/20/21 17:00 01/21/21 08:02 Carvedilol 3.125 Mg Tablet FEED TUBE 3.125 mg TIDWM SANDRA Administration Dextrose 12.5 gm 01/20/21 08:14 Dextrose 50% 25 Gm/50 Ml Syringe IV PUSH PRN PRN Hypoglycemia Protocol Famotidine 20 mg 01/20/21 17:00 01/21/21 08:05 Famotidine 20 Mg Tablet FEED TUBE 20 mg BID SANDRA Administration Fluoxetine HCl 20 mg 01/21/21 09:00 01/21/21 08:05 Fluoxetine Hcl 20 Mg Capsule FEED TUBE 20 mg DAILY SANDRA Administration Furosemide 40 mg 01/21/21 09:00 01/21/21 08:05 Furosemide 40 Mg Tablet FEED TUBE 40 mg DAILY SANDRA Administration Glucagon 1 mg 01/20/21 08:14 Glucagon For Inj 1 Mg Vial IM PRN PRN Hypoglycemia Protocol Glucose 15 gm 01/20/21 08:14 Glucose Oral Gel 15 Gm Of Glucse In
--- NOTE | 2021-01-21 11:28 | PCNFU ---
Nutrition Follow-Up Complete: Suboptimal enteral feedings as related to acute cholecystitis as evidenced by NPO Goal: Meet estimated nutritional needs Patient is progressing towards the goal. We will continue current goal. Pt current nutrition is Glucerna 1.2 at 50 ml/hr goal rate at 60 ml/hr. Last recorded weight is 54.9 kg, no new weight to report. Bowel Motility: Bowel sounds-present.Flatus-active Labs Reviewed:Glu 192,K 3.1,Alb 3.4,Hct 29.6,Hgb 9.6 Meds Noted:Kcl, Zosyn,Lasix, Mag ox, Zofran, Pepcid, Prozac, Coreg, Norvasc. Additional Notes: Patient seen today for nutrition follow up. Cholecystomy tube placed yesterday.Tube feeding are currently at 50 ml/hr and tolerating per nursing. Goal rate will be 60 ml/hr of Glucerna 1.2 providing 1584 kcals and 79 gms protein. Patient is progressing towards goal. We will continue current continuos feedings. Bolus feeding recommendations: Glucerna 1.2 360 ml-4 x daily Will monitor every Wednesday and Wednesday
[2021-01-21 11:32] VITALS: PULSE 90
[2021-01-21 14:00] VITALS: BP 121/69; PULSE 90; RESP 18; TEMP 36.8; O2SAT 97
[2021-01-21 14:35] LABS: Glucose Point of Care 272 mg/dl (65-105)
--- NOTE | 2021-01-21 16:00 | PM.IMPN ---
Progress Note: A&P Assessment and Plan (1) Acute cholecystitis: Code(s): K81.0 - Acute cholecystitis Status: Acute Assessment and Plan: Patient presents with nausea/vomiting/abdominal pain. CT abdomen/pelvis on arrival demonstrated findings suggestive of acute cholecystitis. Appreciate general surgery input. She underwent ultrasound guided cholecystostomy tube placement on 01/20 by IR. is going Continue IV Zosyn, started on 01/19/21. Gallbladder fluid cultures pending. (2) Gastrostomy status: Code(s): Z93.1 - Gastrostomy status Status: Acute Assessment and Plan: Continue to advance tube feedings slowly - Glucerna 1.2 continuous; start at 20mL/hr and advance by 10mL every 4 hours for goal of 60mL/hr. Hopefully once she is tolerating continuous feeds again without abdominal pain/N/V she can get back on her bolus feed schedule prior to discharge. Patient has been receiving G-tube feedings since her stroke. group home records indicate her feed schedule is as follows: Bolus G tube feeds with Glucerna 360 mL 4 times daily with 180 mL water flush 4 times daily. group home records also indicate she was having a pureed consistency, regular liquid diet with one-to-one supervision for meals. Upright in wheelchair for all meals with small bites/sips and has a repeat modified barium swallow scheduled for 01/29/2021; although when asked by prior provider if she has really been eating or getting medications by mouth lately, she shook her head no . Will keep her NPO at present given her GI issues and risk of aspiration and continue tube feeds. (3) Hypertension: Qualifiers: Hypertension type: essential hypertension Qualified Code(s): I10 - Essential (primary) hypertension Code(s): I10 - Essential (primary) hypertension Status: Chronic Assessment and Plan: Blood pressure reviewed and has been generally well controlled. Last BP 121/69. Continue norvasc, carvedilol, losartan, lasix through G tube. These medications were held yesterday to her procedure Monitor BP trends adjust medication regimen as needed (4) Stroke: Qualifiers: CVA mechanism: unspecified Qualified Code(s): I63.9 - Cerebral infarction, unspecified Code(s): I63.9 - Cerebral infarction, unspecified Status: Chronic Assessment and Plan: It seems she had hemorrhagic stroke around 1 month ago. She is at rehab and has right-sided weakness. She has expressive aphasia with seemingly intact comprehension; able to answer yes / no questions pretty reliably. (5) Depression: Qualifiers: Depression Type: unspecified Qualified Code(s): F32.9 - Major depressive disorder, single episode, unspecified Code(s): F32.9 - Major depressive disorder, single episode, unspecified Status: Chronic Assessment and Plan: Continue home Prozac. (6) COPD (chronic obstructive pulmonary disease): Qualifiers: COPD type: unspecified COPD Qualified Code(s): J44.9 - Chronic obstructive pulmonary disease, unspecified Code(s): J44.9 - Chronic obstructive pulmonary disease, unspecified Status: Chronic Assessment and Plan: No respiratory distress. Continue Albuterol PRN. (7) Hypokalemia: Code(s): E87.6 - Hypokalemia Status: Acute Assessment and Plan: K 3.1 this morning, replaced with 40 mEq IV KCl. Mag 1.7, continue mag-ox via g tube. Monitor electrolytes and replace as needed. Subjective Date/time seen: 01/21/21 16:00 Interval history: Date of service: 01/21/2021 Marilyn Ram is a 60-year-old female with a history of [employer]
[2021-01-21 16:56] VITALS: PULSE 92
[2021-01-21 17:14] LABS: Glucose Point of Care 196 mg/dl (65-105)
[2021-01-21] MEDS: ATORVASTATIN 40 MG TABLET 80 MG PO (20:51)
[2021-01-21 21:58] LABS: Glucose Point of Care 176 mg/dl (65-105)
[2021-01-21 22:00] VITALS: BP 125/69; PULSE 89; RESP 20; TEMP 37.1; O2SAT 99
[2021-01-21] MEDS: ACETAMINOPHEN 325 MG TABLET 650 MG FEED TUBE (22:47)
[2021-01-22 06:00] VITALS: BP 139/73; PULSE 94; RESP 21; TEMP 36.9; O2SAT 100
[2021-01-22 06:07] LABS: Hematocrit 27.7 % (37.0-47.0); Hemoglobin 9.1 g/dL (12.0-15.0); Mean Corpuscular HGB Conc 32.9 g/dl (32-36); Mean Corpuscular Hemoglobin 25.9 pg (26-34); Mean Corpuscular Volume 78.7 fl (80-100); Mean Platelet Volume 10.3 fl (7.4-10.4); Platelet Count Result 299 k/mm3 (150-375); Red Blood Count 3.52 M/mm3 (4.2-5.4); Red Cell Distribution Width 14.9 % (11.5-14.5)
[2021-01-22 06:19] LABS: Anion Gap 9 mmol/L (8-16); Blood Urea Nitrogen 17 mg/dL (7-17); Calcium 9.5 mg/dL (8.4-10.2); Carbon Dioxide 28 mmol/L (22-30); Chloride 99 mmol/L (98-107); Estimated CRCL calculation 106 ml/min; Estimated Glomerular Filt Rate > 60; Glucose 197 mg/dL (65-105); Magnesium 1.7 mg/dL (1.6-2.3); Potassium 3.2 mmol/L (3.4-5.0); Sodium 136 mmol/L (137-145)
[2021-01-22] MEDS: ONDANSETRON INJ 4 MG/2 ML VIAL IV PUSH (06:29)
[2021-01-22 06:55] LABS: Glucose Point of Care 168 mg/dl (65-105)
[2021-01-22] MEDS: INSULIN ASPART (*BKC) 100 UNITS/ML SUB-Q ×3 (07:00→17:26)
[2021-01-22 07:21] LABS: Glucose Point of Care 220 mg/dl (65-105)
[2021-01-22] MEDS: MAGNESIUM OXIDE 400 MG TABLET FEED TUBE (08:18)
[2021-01-22] MEDS: LOSARTAN POTASSIUM 100 MG TABLET FEED TUBE (08:18)
[2021-01-22] MEDS: FLUoxetine HCL 20 MG CAPSULE FEED TUBE (08:18)
[2021-01-22 08:19] VITALS: PULSE 90
[2021-01-22] MEDS: FUROSEMIDE 40 MG TABLET FEED TUBE (08:19)
[2021-01-22] MEDS: FAMOTIDINE 20 MG TABLET FEED TUBE ×2 (08:19→16:39)
[2021-01-22] MEDS: carvediloL 3.125 MG TABLET FEED TUBE ×3 (08:19→16:39)
[2021-01-22] MEDS: amLODIPine BESYLATE 5 MG TABLET FEED TUBE (08:19)
--- NOTE | 2021-01-22 10:28 | PM.PNGS ---
Progress Note: A&P Assessment and Plan (1) Acute cholecystitis: Code(s): K81.0 - Acute cholecystitis Status: Acute Assessment and Plan: Percutaneous cholecystostomy tube placed on 01/20/21. Still has blood-appearing drainage from cholecystostomy tube, but not a large amount. Will continue to monitor output closely today and may need to transfer to a tertiary care facility with hepatobiliary specialists if this continues. Continue IV abx. Okay to try to restart tube feedings if nausea improves. Additional Plan I have discussed the plan of care with Dr. Oates. Subjective Subjective Date/Time Seen: 01/22/21 10:28 Patient is a 60-year-old female who is 2 days post placement of keaton drain for acute cholecystitis. Patient is resting comfortably in room, sleeping, in no acute distress. Patient easily arousable and nods/shakes head to yes/no questions. Patient denies current pain, nausea, fever/chills, shakes head yes when asked if she feels weak and sleeping more than her normal. Per the nurse, she vomited early this morning and her tube feeding is on hold. Nurse is also not sure of cholecystostomy output from overnight shift. Patient reports: no new complaints Review of Systems Review of Systems: All systems reviewed & are unremarkable except as noted in HPI and below Constitutional: Constitutional: Reports daytime sleepiness (Patient nods head when asked if feeling more tired) and Reports weakness (Patient nods head when asked if she feels like she isn't back to her normal) Gastrointestinal: Gastrointestinal: Reports as per HPI and Denies abdominal pain Exam Const: General: cooperative, comfortable, no acute distress, alert and awake Resp: Effort & Inspection: normal respiratory effort Auscultation: clear to auscultation bilaterally GI: Inspection: non-distended GI Palp: Yes abdominal tenderness (tenderness around perc keaton tube) and Yes Soft to palpation Auscultation: normal bowel sounds Other: G-tube in place, tube feedings on hold Perc. cholecystostomy tube with red-appearing sanguineous output Skin: General skin exam: normal color Psych: Judgement: Limited judgement present (Psych) Objective Data Vital Signs Vital Signs: Vital Signs - 24 hr 01/21/21 11:32 01/21/21 14:00 01/21/21 16:56 Temperature 98.3 F Pulse Rate 90 90 92 Respiratory Rate 18 Blood Pressure 121/69 Pulse Oximetry 97 01/21/21 22:00 01/22/21 06:00 01/22/21 08:19 Temperature 98.8 F 98.4 F Pulse Rate 89 94 90 Respiratory Rate 20 21 H Blood Pressure 125/69 139/73 Pulse Oximetry 99 100 Intake/Output Intake/Output: Intake & Output 01/19/21 01/20/21 01/21/21 01/22/21 23:59 23:59 23:59 23:59 Intake Total 1200 200 440 50 Output Total 90 1800 Balance 1200 110 -1360 50 Meds/Results Medications: Active Medications Generic Name Dose Route Start Last Admin Trade Name Freq PRN Reason Stop Dose Admin Acetaminophen 650 mg 01/20/21 14:57 01/21/21 22:47 Acetaminophen 325 Mg Tablet FEED TUBE 650 mg Q4H PRN Administration Pain 1-6 or Fever Albuterol 2.5 mg 01/18/21 22:07 Albuterol Sulfate Neb 2.5 Mg/0.5 Ml Inh INHALATION Q6HRT PRN Shortness Of Breath Amlodipine Besylate 5 mg 01/20/21 14:55 01/22/21 08:19 Amlodipine Besylate 5 Mg Tablet FEED TUBE 5 mg DAILY SANDRA Administration Atorvastatin Calcium 80 mg 01/20/21 21:00 01/21/21 20:51 Atorvastatin 40 Mg Tablet PO 80 mg HS SANDRA Administration Bisacodyl 10 mg 01/20/21 14:51 Bisacodyl 10 Mg Suppository RECTAL DAILY PRN Constipation Carvedilol 3.125 mg 01/20/21 17:00 01/22/21 08:19 Carvedilol 3.125 Mg Tablet FEED TUBE 3.125 mg TIDWM SANDRA Administration Dextrose 12.5 gm 01/20/21 08:14 Dextrose 50% 25 Gm/50 Ml Syringe IV PUSH PRN PRN Hypoglycemia Protocol Famotidine 20 mg 01/20/21 17:00 01/22/21 08:19 Famotidine 20 Mg Tablet FEED TUBE 20 mg
[2021-01-22 11:28] VITALS: PULSE 90
[2021-01-22 12:13] LABS: Glucose Point of Care 254 mg/dl (65-105)
--- NOTE | 2021-01-22 12:51 | PM.IMPN ---
Progress Note: A&P Assessment and Plan (1) Acute cholecystitis: Code(s): K81.0 - Acute cholecystitis Status: Acute Assessment and Plan: Patient presented with nausea/vomiting/abdominal pain. CT abdomen/pelvis on arrival demonstrated findings suggestive of acute cholecystitis. Appreciate general surgery input. She underwent ultrasound guided cholecystostomy tube placement on 01/20 by IR. Continue IV Zosyn, started on 01/19/21. Gallbladder fluid cultures pending; preliminary cultures negative. General surgery following sanguinous output. Transfer to tertiary care center with hepatobiliary evaluation will be considered if hemobilia persists (2) Gastrostomy status: Code(s): Z93.1 - Gastrostomy status Status: Acute Assessment and Plan: Has been having N/V today, therefore tube feeds held this am. Restarted this afternoon at 60 mL/hr (goal rate). If symptoms continue, can decrease down and slowly work back up by 10mL every 4 hours until at goal. Hopefully once she is tolerating continuous feeds again without abdominal pain/N/V she can get back on her bolus feed schedule prior to discharge. Patient has been receiving G-tube feedings since her stroke. [facility] records indicate her feed schedule is as follows: Bolus G tube feeds with Glucerna 360 mL 4 times daily with 180 mL water flush 4 times daily. [facility] records also indicate she was having a pureed consistency, regular liquid diet with one-to-one supervision for meals. Upright in wheelchair for all meals with small bites/sips and has a repeat modified barium swallow scheduled for 01/29/2021; although when asked by prior provider if she has really been eating or getting medications by mouth lately, she shook her head no . Will keep her NPO at present given her GI issues and risk of aspiration and continue tube feeds. (3) Hypertension: Qualifiers: Hypertension type: essential hypertension Qualified Code(s): I10 - Essential (primary) hypertension Code(s): I10 - Essential (primary) hypertension Status: Chronic Assessment and Plan: Blood pressure reviewed and were initially elevated but slowly improving. Last BP 139/73 Continue norvasc, carvedilol, losartan, lasix through G tube Monitor BP trends and adjust medication regimen as needed (4) Stroke: Qualifiers: CVA mechanism: unspecified Qualified Code(s): I63.9 - Cerebral infarction, unspecified Code(s): I63.9 - Cerebral infarction, unspecified Status: Chronic Assessment and Plan: It seems she had hemorrhagic stroke around 1 month ago. She is at rehab and has right-sided weakness. She has expressive aphasia with seemingly intact comprehension; able to answer yes / no questions pretty reliably. (5) Depression: Qualifiers: Depression Type: unspecified Qualified Code(s): F32.9 - Major depressive disorder, single episode, unspecified Code(s): F32.9 - Major depressive disorder, single episode, unspecified Status: Chronic Assessment and Plan: Continue home Prozac. (6) COPD (chronic obstructive pulmonary disease): Qualifiers: COPD type: unspecified COPD Qualified Code(s): J44.9 - Chronic obstructive pulmonary disease, unspecified Code(s): J44.9 - Chronic obstructive pulmonary disease, unspecified Status: Chronic Assessment and Plan: No respiratory distress. Continue Albuterol PRN. (7) Electrolyte abnormality: Code(s): E87.8 - Other disorders of electrolyte and fluid balance, not elsewhere classified Status: Acute Assessment and Plan: K 3.2 this morning, administer 40 mEq IV KCl. Mag 1.7,
[2021-01-22] MEDS: MAGNESIUM SULFATE 3GM/D5W100ML 3 GM/100 ML BAG IVPB (13:23)
[2021-01-22 14:00] VITALS: BP 112/61; PULSE 84; RESP 18; TEMP 36.1; O2SAT 99
[2021-01-22 16:39] VITALS: PULSE 85
[2021-01-22 17:27] LABS: Glucose Point of Care 250 mg/dl (65-105)
[2021-01-22] MEDS: ATORVASTATIN 40 MG TABLET 80 MG PO (20:10)
[2021-01-22 22:00] VITALS: BP 140/72; PULSE 88; RESP 16; TEMP 36.2; O2SAT 98
[2021-01-23 00:10] LABS: Glucose Point of Care 167 mg/dl (65-105)
[2021-01-23 05:52] LABS: Glucose Point of Care 199 mg/dl (65-105)
[2021-01-23 06:00] VITALS: BP 136/77; PULSE 94; RESP 16; TEMP 36.1; O2SAT 96
[2021-01-23 06:30] LABS: Hematocrit 29.9 % (37.0-47.0); Hemoglobin 9.5 g/dL (12.0-15.0); Mean Corpuscular HGB Conc 31.8 g/dl (32-36); Mean Corpuscular Hemoglobin 25.3 pg (26-34); Mean Corpuscular Volume 79.5 fl (80-100); Mean Platelet Volume 9.7 fl (7.4-10.4); Platelet Count Result 348 k/mm3 (150-375); Red Blood Count 3.76 M/mm3 (4.2-5.4); Red Cell Distribution Width 14.7 % (11.5-14.5); White Blood Count 7.3 K/mm3 (4.5-10.0)
[2021-01-23 06:47] LABS: Anion Gap 10 mmol/L (8-16); Blood Urea Nitrogen 13 mg/dL (7-17); Calcium 9.5 mg/dL (8.4-10.2); Carbon Dioxide 28 mmol/L (22-30); Chloride 100 mmol/L (98-107); Estimated CRCL calculation 88 ml/min; Estimated Glomerular Filt Rate > 60; Glucose 216 mg/dL (65-105); Magnesium 1.9 mg/dL (1.6-2.3); Potassium 3.8 mmol/L (3.4-5.0); Sodium 138 mmol/L (137-145)
--- NOTE | 2021-01-23 08:38 | PCPTNOTE ---
Attempted to see patient for PT, however was unable to see patient due to patient unable to be awaken. RN notified.
[2021-01-23 10:05] VITALS: PULSE 92
[2021-01-23] MEDS: FUROSEMIDE 40 MG TABLET FEED TUBE (10:05)
[2021-01-23] MEDS: LOSARTAN POTASSIUM 100 MG TABLET FEED TUBE (10:05)
[2021-01-23] MEDS: FAMOTIDINE 20 MG TABLET FEED TUBE ×2 (10:05→17:25)
[2021-01-23] MEDS: MAGNESIUM OXIDE 400 MG TABLET FEED TUBE (10:05)
[2021-01-23] MEDS: carvediloL 3.125 MG TABLET FEED TUBE ×3 (10:05→17:25)
[2021-01-23] MEDS: amLODIPine BESYLATE 5 MG TABLET FEED TUBE (10:07)
[2021-01-23] MEDS: FLUoxetine HCL 20 MG CAPSULE FEED TUBE (10:07)
--- NOTE | 2021-01-23 10:19 | PM.PNGS ---
Progress Note: A&P Assessment and Plan (1) Acute cholecystitis: Code(s): K81.0 - Acute cholecystitis Status: Acute Assessment and Plan: Percutaneous cholecystostomy tube placed on 01/20/21. Still has bloody drainage from cholecystostomy tube. We would recommend transfer to [place] where she can be evaluated by hepatobiliary specialists and would have other options for potential IR intervention. I discussed this with the Hospitalist who is going to initiate transfer. Continue IV abx. Additional Plan I have discussed the plan of care with Dr. Oates. Subjective Subjective Date/Time Seen: 01/23/21 09:19 Patient reports: afebrile Interval history: 60yoF with hx of stroke and has expressive aphasia and dysphagia with tube feedings through a G-tube for nutrition. She is status post percutaneous cholecystostomy tube placement on 01/20. She will answer yes or no questions and denies abdominal pain. Had an episode of vomiting yesterday and tube feeding was stopped briefly. This has since been restarted and she is apparently tolerating this. Review of Systems Review of Systems: ROS unobtainable: Yes unobtainable due to medical condition Exam Const: General: no acute distress Orientation/consciousness: lethargic GI: Inspection: non-distended GI Palp: Yes Soft to palpation and Yes Tenderness to palpation present (GI) (Right upper quadrant) Auscultation: normal bowel sounds Other: G-tube with tube feedings running Perc. cholecystostomy tube with red-appearing sanguineous output Extrem: General: no clubbing, cyanosis or edema Psych: Insight: Limited insight present (Psych) Judgement: Limited judgement present (Psych) Objective Data Vital Signs Vital Signs: Vital Signs - 24 hr 01/22/21 11:28 01/22/21 14:00 01/22/21 16:39 Temperature 96.9 F L Pulse Rate 90 84 85 Respiratory Rate 18 Blood Pressure 112/61 Pulse Oximetry 99 01/22/21 22:00 01/23/21 06:00 01/23/21 10:05 Temperature 97.2 F L 97 F L Pulse Rate 88 94 92 Respiratory Rate 16 16 Blood Pressure 140/72 136/77 Pulse Oximetry 98 96 Intake/Output Intake/Output: Intake & Output 01/20/21 01/21/21 01/22/21 01/23/21 23:59 23:59 23:59 23:59 Intake Total 200 440 200 100 Output Total 90 1950 150 80 Balance 110 -1510 50 20 Meds/Results Medications: Active Medications Generic Name Dose Route Start Last Admin Trade Name Yasemin PRN Reason Stop Dose Admin Acetaminophen 650 mg 01/20/21 14:57 01/21/21 22:47 Acetaminophen 325 Mg Tablet FEED TUBE 650 mg Q4H PRN Administration Pain 1-6 or Fever Albuterol 2.5 mg 01/18/21 22:07 Albuterol Sulfate Neb 2.5 Mg/0.5 Ml Inh INHALATION Q6HRT PRN Shortness Of Breath Amlodipine Besylate 5 mg 01/20/21 14:55 01/23/21 10:07 Amlodipine Besylate 5 Mg Tablet FEED TUBE 5 mg DAILY SANDRA Administration Atorvastatin Calcium 80 mg 01/20/21 21:00 01/22/21 20:10 Atorvastatin 40 Mg Tablet PO 80 mg HS SANDRA Administration Bisacodyl 10 mg 01/20/21 14:51 Bisacodyl 10 Mg Suppository RECTAL DAILY PRN Constipation Carvedilol 3.125 mg 01/20/21 17:00 01/23/21 10:05 Carvedilol 3.125 Mg Tablet FEED TUBE 3.125 mg TIDWM SANDRA Administration Dextrose 12.5 gm 01/20/21 08:14 Dextrose 50% 25 Gm/50 Ml Syringe IV PUSH PRN PRN Hypoglycemia Protocol Famotidine 20 mg 01/20/21 17:00 01/23/21 10:05 Famotidine 20 Mg Tablet FEED TUBE 20 mg BID SANDRA Administration Fluoxetine HCl 20 mg 01/21/21 09:00 01/23/21 10:07 Fluoxetine Hcl 20 Mg Capsule FEED TUBE 20 mg DAILY SANDRA Administration Furosemide 40 mg 01/21/21 09:00 01/23/21 10:05 Furosemide 40 Mg Tablet FEED TUBE 40 mg DAILY SANDRA Administration Glucagon 1 mg 01/20/21 08:14 Glucagon For Inj 1 Mg Vial IM PRN PRN Hypoglycemia Protocol Glucose 15 gm 01/20/21 08:14 Glucose Oral Gel 15 Gm Of Glucse In 37.5 Gm Tube PO P
--- NOTE | 2021-01-23 11:07 | PCPTNOTE ---
Attempted to see patient at 11:02 for PT treatment, however unable to get patient to wake up enough to participate with therapy. Will continue per POC as appropriate. Maryam Toro, REHAB NURSING TECH
[2021-01-23 12:29] VITALS: PULSE 84
[2021-01-23 13:39] LABS: Glucose Point of Care 215 mg/dl (65-105)
[2021-01-23 14:00] VITALS: BP 136/68; PULSE 82; RESP 18; TEMP 36.3; O2SAT 98
--- NOTE | 2021-01-23 14:00 | PCOTNOTE ---
Attempted to see Patient for OT treatment session this afternoon. Patient was very difficult to arouse, unable to stay alert. Patient is unable to participate this P.M. RN notified and verbalized, she has been like this all day, she is supposed to be transferred to [place] this date.
--- NOTE | 2021-01-23 15:48 | PM.IMPN ---
Progress Note: A&P Assessment and Plan (1) Acute cholecystitis: Code(s): K81.0 - Acute cholecystitis Status: Acute Assessment and Plan: Patient presented with nausea/vomiting/abdominal pain. CT abdomen/pelvis on arrival demonstrated findings suggestive of acute cholecystitis. Appreciate general surgery input. She underwent ultrasound guided cholecystostomy tube placement on 01/20 by IR. Continue IV Zosyn, started on 01/19/21. Gallbladder fluid cultures pending; preliminary cultures negative. General surgery following sanguinous output. Transfer to tertiary care center with hepatobiliary evaluation accepted to [facility] (2) Gastrostomy status: Code(s): Z93.1 - Gastrostomy status Status: Acute Assessment and Plan: Has been having N/V today, therefore tube feeds held this am. Restarted this afternoon at 60 mL/hr (goal rate). If symptoms continue, can decrease down and slowly work back up by 10mL every 4 hours until at goal. Hopefully once she is tolerating continuous feeds again without abdominal pain/N/V she can get back on her bolus feed schedule prior to discharge. Patient has been receiving G-tube feedings since her stroke. [facility] schedule is as follows: Bolus G tube feeds with Glucerna 360 mL 4 times daily with 180 mL water flush 4 times daily. [facility] records also indicate she was having a pureed consistency, regular liquid diet with one-to-one supervision for meals. Upright in wheelchair for all meals with small bites/sips and has a repeat modified barium swallow scheduled for 01/29/2021; although when asked by prior provider if she has really been eating or getting medications by mouth lately, she shook her head no . Will keep her NPO at present given her GI issues and risk of aspiration and continue tube feeds. (3) Hypertension: Qualifiers: Hypertension type: essential hypertension Qualified Code(s): I10 - Essential (primary) hypertension Code(s): I10 - Essential (primary) hypertension Status: Chronic Assessment and Plan: Blood pressure reviewed and were initially elevated but slowly improving. Last BP 136/68 Continue norvasc, carvedilol, losartan, lasix through G tube Monitor BP trends and adjust medication regimen as needed (4) Stroke: Qualifiers: CVA mechanism: unspecified Qualified Code(s): I63.9 - Cerebral infarction, unspecified Code(s): I63.9 - Cerebral infarction, unspecified Status: Chronic Assessment and Plan: It seems she had hemorrhagic stroke around 1 month ago. She is at rehab and has right-sided weakness. She has expressive aphasia with seemingly intact comprehension; able to answer yes / no questions pretty reliably. (5) Depression: Qualifiers: Depression Type: unspecified Qualified Code(s): F32.9 - Major depressive disorder, single episode, unspecified Code(s): F32.9 - Major depressive disorder, single episode, unspecified Status: Chronic Assessment and Plan: Continue home Prozac. (6) COPD (chronic obstructive pulmonary disease): Qualifiers: COPD type: unspecified COPD Qualified Code(s): J44.9 - Chronic obstructive pulmonary disease, unspecified Code(s): J44.9 - Chronic obstructive pulmonary disease, unspecified Status: Chronic Assessment and Plan: No respiratory distress. Continue Albuterol PRN. (7) Electrolyte abnormality: Code(s): E87.8 - Other disorders of electrolyte and fluid balance, not elsewhere classified Status: Acute Assessment and Plan: K 3.8 this morning Mag 1.9, administer 3 mg IV mag sulfate
[2021-01-23 17:25] VITALS: PULSE 96
[2021-01-23 17:58] LABS: Glucose Point of Care 188 mg/dl (65-105)
[2021-01-23] MEDS: ATORVASTATIN 40 MG TABLET 80 MG PO (21:06)
[2021-01-23 22:00] VITALS: BP 121/39; PULSE 54; RESP 16; TEMP 36.4; O2SAT 92
[2021-01-24 01:10] LABS: Glucose Point of Care 165 mg/dl (65-105)
[2021-01-24 06:00] VITALS: BP 139/75; PULSE 95; RESP 16; TEMP 36.2; O2SAT 99
[2021-01-24 06:01] LABS: Glucose Point of Care 176 mg/dl (65-105)
[2021-01-24 06:41] LABS: Basophils Absolute Auto 0.1 K/mm3 (0.0-0.1); Basophils Percent Auto 0.6 % (0.2-1.2); Eosinophils Absolute Auto 0.3 K/mm3 (0-0.3); Eosinophils Percent Auto 3.5 % (0-4.4); Hematocrit 29.9 % (37.0-47.0); Hemoglobin 9.5 g/dL (12.0-15.0); Immature Granulocyte Absolute 0.08 K/mm3 (0.00-0.031); Immature Granulocyte Percent A 0.9 % (0-0.5); Lymphocytes Absolute Auto 2.12 K/mm3 (0.9-3.2); Mean Corpuscular HGB Conc 31.8 g/dl (32-36); Mean Corpuscular Hemoglobin 25.3 pg (26-34); Mean Corpuscular Volume 79.7 fl (80-100); Mean Platelet Volume 9.7 fl (7.4-10.4); Monocytes Absolute Auto 0.6 K/mm3 (0.1-0.6); Monocytes Percent Auto 6.9 % (2.6-8.5); Neutrophils Absolute Auto 5.7 K/mm3 (1.3-6.7); Neutrophils Percent Auto 64.1 % (45.5-73.1); Platelet Count Result 391 k/mm3 (150-375); Red Blood Count 3.75 M/mm3 (4.2-5.4); Red Cell Distribution Width 14.9 % (11.5-14.5); White Blood Count 8.8 K/mm3 (4.5-10.0)
[2021-01-24 06:56] LABS: Alanine Aminotransferase 41 U/L (4-35); Albumin Level 3.7 g/dL (3.5-5.1); Alkaline Phosphatase 144 U/L (38-126); Anion Gap 12 mmol/L (8-16); Aspartate Amino Transferase 34 U/L (14-36); Bilirubin,Total < 0.1 mg/dL (0.2-1.3); Blood Urea Nitrogen 15 mg/dL (7-17); Calcium 9.6 mg/dL (8.4-10.2); Carbon Dioxide 25 mmol/L (22-30); Chloride 101 mmol/L (98-107); Estimated CRCL calculation 106 ml/min; Estimated Glomerular Filt Rate > 60; Glucose 192 mg/dL (65-105); Potassium 4.2 mmol/L (3.4-5.0); Sodium 138 mmol/L (137-145)
[2021-01-24 09:30] VITALS: PULSE 92
[2021-01-24] MEDS: LOSARTAN POTASSIUM 100 MG TABLET FEED TUBE (09:30)
[2021-01-24] MEDS: FAMOTIDINE 20 MG TABLET FEED TUBE ×2 (09:30→17:23)
[2021-01-24] MEDS: carvediloL 3.125 MG TABLET FEED TUBE ×3 (09:30→17:23)
[2021-01-24] MEDS: FUROSEMIDE 40 MG TABLET FEED TUBE (09:31)
[2021-01-24] MEDS: MAGNESIUM OXIDE 400 MG TABLET FEED TUBE (09:31)
[2021-01-24] MEDS: FLUoxetine HCL 20 MG CAPSULE FEED TUBE (09:31)
[2021-01-24] MEDS: amLODIPine BESYLATE 5 MG TABLET FEED TUBE (09:31)
--- NOTE | 2021-01-24 10:46 | PCNFU ---
Nutrition Follow-Up Complete: Suboptimal enteral feedings as related to acute cholecystitis as evidenced by NPO Goal: Meet estimated nutritional needs Progressing towards goal. We will continue current goal. Pt current nutrition is Glucerna 1.2 at 60 ml/hr. Last recorded weight is 54.9 kg, no new weight to report. Bowel Motility:+BM reported 01/23 Labs Reviewed:Glu 192,Cr 0.4,Hct 29.9,Hgb 9.5 Meds Noted:Lipitor,Lasix,Mag ox, Zosyn, Pepcid,Cozaar,Coreg,Prozac Additional Notes:Nutrition follow up. Patient to be transferred to [place]. G tube feedings of Glucerna 1.2 at 60 ml/hr-tolerating per nursing. Current tube feeding is providing patient with 1584 kcals and 79 gms protein. Agree with diet orders at this time. Monitoring: every Wednesday and Wednesday
[2021-01-24 12:08] LABS: Glucose Point of Care 215 mg/dl (65-105)
--- NOTE | 2021-01-24 12:19 | PM.IMPN ---
Progress Note: A&P Assessment and Plan (1) Acute cholecystitis: Code(s): K81.0 - Acute cholecystitis Status: Acute Assessment and Plan: Patient presented with nausea/vomiting/abdominal pain. CT abdomen/pelvis on arrival demonstrated findings suggestive of acute cholecystitis. Appreciate general surgery input. She underwent ultrasound guided cholecystostomy tube placement on 01/20 by IR. Continue IV Zosyn, started on 01/19/21. Gallbladder fluid cultures pending; preliminary cultures negative. General surgery following sanguinous output. Transfer to tertiary care center with hepatobiliary evaluation accepted to [facility] still awaiting a bed (2) Gastrostomy status: Code(s): Z93.1 - Gastrostomy status Status: Acute Assessment and Plan: Has been having N/V today, therefore tube feeds held this am. Restarted this afternoon at 60 mL/hr (goal rate). If symptoms continue, can decrease down and slowly work back up by 10mL every 4 hours until at goal. Hopefully once she is tolerating continuous feeds again without abdominal pain/N/V she can get back on her bolus feed schedule prior to discharge. Patient has been receiving G-tube feedings since her stroke. [facility] records indicate her feed schedule is as follows: Bolus G tube feeds with Glucerna 360 mL 4 times daily with 180 mL water flush 4 times daily. [facility] records also indicate she was having a pureed consistency, regular liquid diet with one-to-one supervision for meals. Upright in wheelchair for all meals with small bites/sips and has a repeat modified barium swallow scheduled for 01/29/2021; although when asked by prior provider if she has really been eating or getting medications by mouth lately, she shook her head no . Will keep her NPO at present given her GI issues and risk of aspiration and continue tube feeds. (3) Hypertension: Qualifiers: Hypertension type: essential hypertension Qualified Code(s): I10 - Essential (primary) hypertension Code(s): I10 - Essential (primary) hypertension Status: Chronic Assessment and Plan: Blood pressure reviewed and were initially elevated but slowly improving. Last BP 139/75 Continue norvasc, carvedilol, losartan, lasix through G tube Monitor BP trends and adjust medication regimen as needed (4) Stroke: Qualifiers: CVA mechanism: unspecified Qualified Code(s): I63.9 - Cerebral infarction, unspecified Code(s): I63.9 - Cerebral infarction, unspecified Status: Chronic Assessment and Plan: It seems she had hemorrhagic stroke around 1 month ago. She is at rehab and has right-sided weakness. She has expressive aphasia with seemingly intact comprehension; able to answer yes / no questions pretty reliably. (5) Depression: Qualifiers: Depression Type: unspecified Qualified Code(s): F32.9 - Major depressive disorder, single episode, unspecified Code(s): F32.9 - Major depressive disorder, single episode, unspecified Status: Chronic Assessment and Plan: Continue home Prozac. (6) COPD (chronic obstructive pulmonary disease): Qualifiers: COPD type: unspecified COPD Qualified Code(s): J44.9 - Chronic obstructive pulmonary disease, unspecified Code(s): J44.9 - Chronic obstructive pulmonary disease, unspecified Status: Chronic Assessment and Plan: No respiratory distress. Continue Albuterol PRN. (7) Electrolyte abnormality: Code(s): E87.8 - Other disorders of electrolyte and fluid balance, not elsewhere classified Status: Acute Assessment and Plan:
[2021-01-24 12:39] VITALS: PULSE 68
[2021-01-24 14:00] VITALS: BP 126/74; PULSE 89; RESP 18; TEMP 36.2; O2SAT 99
--- NOTE | 2021-01-24 16:06 | PM.TDS ---
Transfer Discharge Sum: Prov Provider Date of admission: 01/18/21 18:48 Primary care physician: Bishop Balderas MD Admitting clinician: Raoul Austin MD Consults: 01/18/21 18:50 Consult to Physician Routine Comment: Consulting Provider: Jumana Tse Reason for consultation: acute choelcystitis Has provider been notified: Yes DS: Admitting Diagnosis Admitting Diagnosis Admitting Diagnosis: Nausea, vomiting DS: Discharge Diagnosis Discharge Diagnosis (1) Acute cholecystitis: Code(s): K81.0 - Acute cholecystitis Status: Acute Assessment and Plan: Patient presented with nausea/vomiting/abdominal pain. CT abdomen/pelvis on arrival demonstrated findings suggestive of acute cholecystitis. Appreciate general surgery input. She underwent ultrasound guided cholecystostomy tube placement on 01/20 by IR. Continue IV Zosyn, started on 01/19/21. Gallbladder fluid cultures pending; preliminary cultures negative. General surgery following sanguinous output. Transfer to tertiary care center with hepatobiliary evaluation accepted to [facility] still awaiting a bed (2) Gastrostomy status: Code(s): Z93.1 - Gastrostomy status Status: Acute Assessment and Plan: Has been having N/V today, therefore tube feeds held this am. Restarted this afternoon at 60 mL/hr (goal rate). If symptoms continue, can decrease down and slowly work back up by 10mL every 4 hours until at goal. Hopefully once she is tolerating continuous feeds again without abdominal pain/N/V she can get back on her bolus feed schedule prior to discharge. Patient has been receiving G-tube feedings since her stroke. residential records indicate her feed schedule is as follows: Bolus G tube feeds with Glucerna 360 mL 4 times daily with 180 mL water flush 4 times daily. residential records also indicate she was having a pureed consistency, regular liquid diet with one-to-one supervision for meals. Upright in wheelchair for all meals with small bites/sips and has a repeat modified barium swallow scheduled for 01/29/2021; although when asked by prior provider if she has really been eating or getting medications by mouth lately, she shook her head no . Will keep her NPO at present given her GI issues and risk of aspiration and continue tube feeds. (3) Hypertension: Qualifiers: Hypertension type: essential hypertension Qualified Code(s): I10 - Essential (primary) hypertension Code(s): I10 - Essential (primary) hypertension Status: Chronic Assessment and Plan: Blood pressure reviewed and were initially elevated but slowly improving. Last BP 139/75 Continue norvasc, carvedilol, losartan, lasix through G tube Monitor BP trends and adjust medication regimen as needed (4) Stroke: Qualifiers: CVA mechanism: unspecified Qualified Code(s): I63.9 - Cerebral infarction, unspecified Code(s): I63.9 - Cerebral infarction, unspecified Status: Chronic Assessment and Plan: It seems she had hemorrhagic stroke around 1 month ago. She is at rehab and has right-sided weakness. She has expressive aphasia with seemingly intact comprehension; able to answer yes / no questions pretty reliably. (5) Depression: Qualifiers: Depression Type: unspecified Qualified Code(s): F32.9 - Major depressive disorder, single episode, unspecified Code(s): F32.9 - Major depressive disorder, single episode, unspecified Status: Chronic Assessment and Plan: Continue home Prozac. (6) COPD (chronic obstructive pulmonary disease): Qualifiers: COPD type: unspecified COPD Qualified Code(s): J44.9 - Chron
[2021-01-24] MEDS: polyethylene glycoL 3350 17 GM POWD.PACK PO (17:22)
[2021-01-24 17:23] VITALS: PULSE 84
[2021-01-24] MEDS: ONDANSETRON INJ 4 MG/2 ML VIAL IV PUSH (18:22)
== END 2021-01-24 18:35 | disposition short-term general hospital (02) | DRG 446 ==
LOC: ANHED 18:55 → ANH3MEDSUR 22:17
PROVIDERS: Nurse Practitioner; Nurse Practitioner Family; Physician Assistant; Admitting Provider Internal Medicine; Emergency Provider Family Medicine; PCP Internal Medicine; Visit Provider Physician Assistant
DX: K81.0 Acute cholecystitis (principal); I10 Essential (primary) hypertension; F32.9 Major depressive disorder, single episode, unspecified; J44.9 Chronic obstructive pulmonary disease, unspecified; E87.8 Other disorders of electrolyte and fluid balance, not elsewhere classified; F17.210 Nicotine dependence, cigarettes, uncomplicated; E78.00 Pure hypercholesterolemia, unspecified; E87.6 Hypokalemia; Z93.1 Gastrostomy status; I69.391 Dysphagia following cerebral infarction; R13.10 Dysphagia, unspecified; I69.320 Aphasia following cerebral infarction; I69.322 Dysarthria following cerebral infarction; I69.331 Monoplegia of upper limb following cerebral infarction affecting right dominant side; Z79.82 Long term (current) use of aspirin; Z79.899 Other long term (current) drug therapy
CPT/HCPCS: 36415; 47490; 51701; 74019; 74177; 80048; 80053; 81001; 82948; 83036; 83690; 83735; 85025; 85027; 85610; 87040; 87070; 87075; 87102; 87205; 87206; 97110; 97162; 97165; 97530; 97535; 99285; A9270; J0131; J0360; J1815; J2270; J2405; J2543; J3475; J3480; J7030; Q9967

== ENCOUNTER 2021-03-11 08:26 | Outpatient (CLI) | payer MEDICARE, SELFPAY ==
--- NOTE | ~2021-03-11 | XR_ITS ---
XR UGI w barium swallow DATE: 03/11/2021 09:28 INDICATION: Difficulty swallowing, abdominal pain TECHNIQUE: Single contrast upper gastrointestinal series 3.1 minutes fluoroscopy time 142 images DAP: 19.552 COMPARISON: None FINDINGS: There is normal deglutition. There are some tertiary contractions of the esophagus but no e sophageal stricture, diverticulum or intraluminal mass lesion. Small sliding hiatal hernia. The stomach and duodenum are unremarkable. Cholecystostomy catheter overlies the right upper quadrant IMPRESSION: Small sliding hiatal hernia Reviewed, dictated and finalized at [facility] Reviewed, dictated and finalized at [facility]. IMPRESSION: Small sliding hiatal hernia
== END 2021-03-11 08:27 | disposition home or self-care (01) ==
PROVIDERS: PCP Internal Medicine
DX: K81.0 Acute cholecystitis (principal); K44.9 Diaphragmatic hernia without obstruction or gangrene
CPT/HCPCS: 74240

== ENCOUNTER 2021-05-02 19:24 | Emergency (ER) | payer MEDICARE, SELFPAY ==
[2021-05-02 19:25] VITALS: BP 141/74; PULSE 87; RESP 18; TEMP 36.7; O2SAT 100
--- NOTE | 2021-05-02 20:18 | ED.GENADULT ---
HPI - General Adult General Chief complaint: Unspecified Stated complaint: gallbladder drain fell out Time Seen by Provider: 05/02/21 19:58 History of Present Illness HPI narrative: Patient is a 7-year-old female with history of expressive aphasia from previous CVA who presents to the ER due to accidentally pulling out her cholecystostomy tube. Occurred this evening. Unknown what time. Patient unable to provide history. It appears the drain was placed here in December of this year. Patient was then transported to [facility] for further evaluation. It is unknown what occurred at the outside hospital. Related Data Home Medications Medication Instructions Recorded Confirmed albuterol 90 mcg/actuation aerosol 108 mcg INHALATION DAILY 01/16/21 01/20/21 inhaler amlodipine 5 mg tablet 5 mg FEEDING TUBE DAILY 01/16/21 01/20/21 aspirin 81 mg chewable tablet 81 mg FEEDING TUBE DAILY 01/16/21 01/20/21 atorvastatin 80 mg tablet 80 mg PO HS 01/16/21 01/20/21 bisacodyl 10 mg rectal suppository 10 mg RECTAL DAILY PRN 01/16/21 01/20/21 carvedilol 3.125 mg tablet 3.125 mg FEEDING TUBE TID 01/16/21 01/20/21 cholecalciferol (vitamin D3) 25 25 mcg FEEDING TUBE WEEKLY 01/16/21 01/20/21 mcg (1,000 unit) capsule famotidine 20 mg tablet 20 mg FEEDING TUBE BID 01/16/21 01/20/21 fluoxetine 20 mg capsule 20 mg FEEDING TUBE DAILY 01/16/21 01/20/21 furosemide 40 mg tablet 40 mg FEEDING TUBE DAILY 01/16/21 01/20/21 hydrocodone 5 mg-acetaminophen 325 1 tablet FEEDING TUBE BID PRN 01/16/21 01/20/21 mg tablet loratadine 10 mg capsule 10 mg FEEDING TUBE DAILY 01/16/21 01/20/21 losartan 100 mg tablet 100 mg FEEDING TUBE DAILY 01/16/21 01/20/21 Allergies Allergy/AdvReac Type Severity Reaction Status Date / Time No Known Allergies Allergy Verified 05/02/21 22:05 Review of Systems Review of Systems: ROS unobtainable: Yes unobtainable due to medical condition PMFSH Past Medical History Medical History (Updated 05/02/21 @ 22:28 by Niels Eason MD) Cholecystostomy tube dysfunction COPD (chronic obstructive pulmonary disease) Depression G tube feedings High cholesterol Hypertension Stroke Tobacco abuse Surgical History Surgical History History of ankle surgery Family History Family History Other Cancer Cerebrovascular accident Diabetes mellitus Heart disease Hypertension Social History Social History Social History: The patient is . She has 2 sons. 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 The patient is disabled. The patient still continues to smoke less than a pack a cigarettes a day. She denies any alcohol or illicit drugs. She is listed as a full code. Smoking packs per day: 0.5 Smoking cigarettes per day: 10.0 Smoking status: Current every day smoker Tobacco type: cigarettes Alcohol intake: never Substance use: never Substance use type: does not use Additional occupation/education comments: disabled Gender identity (if verbalized by the patient): Female Spiritual care concerns: No Exam Narrative: GENERAL: Chronically ill-appearing, well-nourished, and in no acute distress. HEAD: Normocephalic, atraumatic. ENT: Mucous membranes moist. CHEST: Clear to auscultation. No respiratory distress. HEART: Regular rate and rhythm. Normal peripheral pulses. ABDOMEN: Soft, mild epigastric/right upper quadrant tenderness without guarding, nondistended. G-tube in place with normal-appearing stoma site. Right upper quadrant cholecystostomy tube site lacks a cholecystostomy tube in the drain site is not leaking fluid and there is no evidence of infection. SKIN: Warm, dry, no rash. NEURO: Awake and alert, unable to communicate verbally but shakes her head yes and no. Course
[2021-05-02 20:27] LABS: Basophils Percent Auto 0.4 % (0.2-1.2); Eosinophils Absolute Auto 1.5 K/mm3 (0-0.3); Eosinophils Percent Auto 19.6 % (0-4.4); Hematocrit 34.7 % (37.0-47.0); Hemoglobin 11.1 g/dL (12.0-15.0); Immature Granulocyte Absolute 0.02 K/mm3 (0.00-0.031); Immature Granulocyte Percent A 0.3 % (0-0.5); Lymphocytes Absolute Auto 2.01 K/mm3 (0.9-3.2); Lymphocytes Percent Auto 26.1 % (18.3-44.2); Mean Corpuscular Hemoglobin 26.1 pg (26-34); Mean Corpuscular Volume 81.6 fl (80-100); Mean Platelet Volume 10.4 fl (7.4-10.4); Monocytes Absolute Auto 0.4 K/mm3 (0.1-0.6); Monocytes Percent Auto 5.3 % (2.6-8.5); Neutrophils Absolute Auto 3.7 K/mm3 (1.3-6.7); Neutrophils Percent Auto 48.3 % (45.5-73.1); Platelet Count Result 334 k/mm3 (150-375); Red Blood Count 4.25 M/mm3 (4.2-5.4); Red Cell Distribution Width 14.7 % (11.5-14.5); White Blood Count 7.7 K/mm3 (4.5-10.0)
[2021-05-02 20:35] LABS: Prothrombin Time 12.9 Seconds (11.1-14.7)
[2021-05-02 20:36] LABS: Alanine Aminotransferase 30 U/L (4-35); Albumin Level 4.3 g/dL (3.5-5.1); Alkaline Phosphatase 118 U/L (38-126); Anion Gap 12 mmol/L (8-16); Aspartate Amino Transferase 24 U/L (14-36); Bilirubin,Total 0.5 mg/dL (0.2-1.3); Blood Urea Nitrogen 12 mg/dL (7-17); Calcium 9.9 mg/dL (8.4-10.2); Carbon Dioxide 25 mmol/L (22-30); Chloride 100 mmol/L (98-107); Estimated Glomerular Filt Rate > 60; Glucose 135 mg/dL (65-110); Lipase 69 U/L (23-300); Partial Thromboplastin Time 27.5 SECONDS (22.3-36.8); Potassium 4.1 mmol/L (3.4-5.0); Sodium 137 mmol/L (137-145)
[2021-05-02 21:26] VITALS: BP 122/78; PULSE 78; RESP 18; O2SAT 99
--- NOTE | 2021-05-02 22:55 | PC.NURSE ---
report called to [facility]. [facility] called for transport
[2021-05-03 06:43] VITALS: BP 137/83; PULSE 97; RESP 18; O2SAT 95
--- NOTE | 2021-05-03 06:58 | PC.NURSE ---
New ETA is 0300
[2021-05-03 10:11] VITALS: BP 144/98; PULSE 97; RESP 12; O2SAT 97
[2021-05-03 13:30] VITALS: BP 142/76; PULSE 78; RESP 16; O2SAT 98
== END 2021-05-03 13:30 ==
PROVIDERS: Emergency Provider Emergency Medicine; PCP Internal Medicine
DX: Z43.4 Encounter for attention to other artificial openings of digestive tract (principal); I69.920 Aphasia following unspecified cerebrovascular disease; J44.9 Chronic obstructive pulmonary disease, unspecified; E78.00 Pure hypercholesterolemia, unspecified; I10 Essential (primary) hypertension; F32.A Depression, unspecified; F17.210 Nicotine dependence, cigarettes, uncomplicated; Z79.82 Long term (current) use of aspirin; R10.13 Epigastric pain
CPT/HCPCS: 36415; 80053; 83690; 85025; 85610; 85730; 99283

== ENCOUNTER 2021-05-05 22:42 | Inpatient (IN) | payer MEDICARE, SELFPAY ==
--- NOTE | ~2021-05-05 | CT_ITS ---
EXAMINATION: CT brain wo con DATE: 05/05/2021 23:56 INDICATION: Altered mental state. History of hemorrhage, sepsis. TECHNIQUE: Computed tomography (CT) of the head was performed without intravenous contrast. The mA wa s adjusted according to patient size. Iterative reconstruction technique was employed. Exam dose: 60 5.33 mGy-cm total exam DLP. COMPARISON: None FINDINGS: Bilateral vertebral artery and carotid siphon internal carotid artery calcifications. There is nonspecific diminished regional cerebral white matter, likely due to chronic small vessel is chemic changes. There are chronic bilateral basal ganglia, periventricular and thalamic lacunar infarcts. There are c hronic right occipital and left cerebellar hemispheric infarcts. Small right cerebellar hemispheric i nfarct. 6 mm chronic infarct of the left medulla/brainstem. Mild bilateral basal ganglia calcification. No intracranial mass lesion or hemorrhage. No midline shift or mass effect effect. No subdural or epi dural hematoma is detected. No fracture or bone destruction of the cranial vault. The mastoid air cells and included paranasal sinuses are unremarkable. IMPRESSION: Cerebral atherosclerosis and chronic small vessel ischemic changes of the cerebral white matter Chronic bilateral basal ganglia, periventricular thalamic lacunar infarcts Small right and larger left left cerebellar hemispheric chronic infarcts 6 mm chronic infarct of left medulla No acute intracranial finding or skull fracture is noted Reviewed, dictated and finalized at [facility] Reviewed, dictated and finalized at [facility].
--- NOTE | ~2021-05-05 | CT_ITS ---
EXAMINATION: CT abdomen pelvis w con DATE: 05/05/2021 23:57 INDICATION: Gastrointestinal hemorrhage. TECHNIQUE: Computed tomography (CT) of the abdomen and pelvis was performed with 100 mL Omnipaque 350 intravenous contrast. Automated exposure control and iterative reconstruction technique were employe d. The dose-length product was 408.61 mGy-cm. COMPARISON: CT abdomen and pelvis 01/23/2021 FINDINGS: The visualized portions of the lung bases demonstrate airspace and groundglass opacities in the lower lobes with a posterior predominance, right worse than left. No pleural effusion. The heart size is normal. No pericardial effusion. There is a small sliding hiatal hernia. The liver is normal . The gallbladder is normal in size and demonstrates gallstones and gallbladder wall thickening. Ther e is a tract from the previous cholecystostomy tube in the abdominal wall overlying this area with 1. 8 x 1.5 cm intramuscular abscess with thick enhancing wall and adjacent edema and soft tissue swellin g. There is a gastrostomy tube in expected position. The spleen, pancreas, adrenal glands are normal. There is cortical thinning of the kidneys. There are multiple fibroids in the uterus. There are no d ilated loops of bowel. The appendix is normal. There are no pathologically enlarged lymph nodes. Ther e is no free intraperitoneal fluid. There is calcified atherosclerosis of the aorta and many of the o ther arteries. There is moderate stenosis of left common femoral artery. There is mild lumbar spondyl osis. IMPRESSION: 1. 1.8 x 1.5 cm intramuscular abscess along the tract of the cholecystostomy tube, which has been rem federico. 2. Cholelithiasis. Gallbladder wall thickening, consistent with acute versus chronic cholecystitis. 3. Airspace and groundglass opacities in the lower lobes, right worse than left, consistent with atel ectasis versus pneumonia. 4. Small sliding hiatal hernia. Reviewed, dictated and finalized at [facility]. IMPRESSION: 1. 1.8 x 1.5 cm intramuscular abscess along the tract of the cholecystostomy tu be, which has been removed. 2. Cholelithiasis. Gallbladder wall thickening, consistent with acute versus ch ronic cholecystitis. 3. Airspace and groundglass opacities in the lower lobes, right worse than left , consistent with atelectasis versus pneumonia. 4. Small sliding hiatal hernia.
--- NOTE | ~2021-05-05 | CT_ITS ---
EXAMINATION: CT guide absc cath placement DATE: 05/06/2021 13:35 INDICATION: Right abdominal wall abscess. TECHNIQUE: The procedure including the risks, benefits, and alternatives was discussed with the patie nt's son, who provided consent by phone. Risks discussed included bleeding and infection. The skin ov erlying the abdomen was prepped and draped in usual sterile fashion. Anesthetic was administered wit h 1% lidocaine subcutaneously. An 18 gauge trochar needle was inserted into the right abdominal wall abscess with CT guidance. The needle was exchanged over a wire for 6 Haitian and 8 Haitian dilators and then for an 8.5 Haitian pigtail catheter. The catheter was stitched to the skin, and a sterile dressi ng was applied. The mA was adjusted according to patient size. Iterative reconstruction technique was employed. The dose-length product was 139.66 mGy-cm. There were no immediate complications. FINDINGS: CT images demonstrate the catheter within the right abdominal wall abscess. 5 mL fluid was aspirated for testing. IMPRESSION: 1. Successful CT-guided right abdominal wall abscess drainage. 2. 5 mL opaque, brown fluid was sent for aerobic and anaerobic cultures. Reviewed, dictated and finalized at [facility].
--- NOTE | ~2021-05-05 | XR_ITS ---
XR chest 1V DATE: 05/05/2021 23:58 INDICATION: Sepsis TECHNIQUE: AP chest on 05/05/2021 at 2353 hours COMPARISON: None FINDINGS: Normal heart size. There is evidence of a moderate-sized hiatal hernia. There is mild infiltrate or atelectasis in the left lower lobe. The lungs otherwise appear clear. No pleural effusion or pulmonary vascular congestion or pneumothorax. Diffuse osteopenia. IMPRESSION: Mild infiltrate or atelectasis in the left lower lobe Hiatal hernia Osteopenia Reviewed, dictated and finalized at [facility].
--- NOTE | 2021-05-05 22:49 | ED.GIBLEED ---
HPI - GI Bleed General Chief complaint: GI Bleed Stated complaint: possible gi bleed vomit x 2 coffee ground emesis Time Seen by Provider: 05/05/21 22:49 Source: EMS Mode of arrival: EMS Limitations: clinical condition (aphasia, history of CVA) History of Present Illness HPI Narrative: Patient is a 61-year-old female with a history of intracranial hemorrhage, hemiplegia, aphasia, G-tube dependent, who presents for evaluation of coffee-ground emesis. Patient was noted to have coffee-ground emesis at outside detention facility this evening. Reportedly, 2 episodes of this. Patient is nonverbal at baseline. Intermittently alert. She is full code per chart review. At bedside, patient is pale, tachycardic, mildly tachypneic. No respiratory distress. She does have evidence of brown emesis on some of her clothing. It is not dark brown. Her abdomen is soft, she does not grimace with palpation. Reportedly, patient with Covid infection in April of this year. Per chart review, patient with percutaneous cholecystostomy tube placed by interventional radiology in December of this year at this hospital. Patient was transferred to [place] on 01/23 for evaluation by hepatobiliary, and then has had a repeat visit here for cholecystostomy tube dislodgment, general surgery had no further interventions needed for this at this point and patient discharged to detention. Related Data Home Medications Medication Instructions Recorded Confirmed albuterol 90 mcg/actuation aerosol 108 mcg INHALATION DAILY 01/16/21 01/20/21 inhaler amlodipine 5 mg tablet 5 mg FEEDING TUBE DAILY 01/16/21 01/20/21 aspirin 81 mg chewable tablet 81 mg FEEDING TUBE DAILY 01/16/21 01/20/21 atorvastatin 80 mg tablet 80 mg PO HS 01/16/21 01/20/21 bisacodyl 10 mg rectal suppository 10 mg RECTAL DAILY PRN 01/16/21 01/20/21 carvedilol 3.125 mg tablet 3.125 mg FEEDING TUBE TID 01/16/21 01/20/21 cholecalciferol (vitamin D3) 25 25 mcg FEEDING TUBE WEEKLY 01/16/21 01/20/21 mcg (1,000 unit) capsule famotidine 20 mg tablet 20 mg FEEDING TUBE BID 01/16/21 01/20/21 fluoxetine 20 mg capsule 20 mg FEEDING TUBE DAILY 01/16/21 01/20/21 furosemide 40 mg tablet 40 mg FEEDING TUBE DAILY 01/16/21 01/20/21 hydrocodone 5 mg-acetaminophen 325 1 tablet FEEDING TUBE BID PRN 01/16/21 01/20/21 mg tablet loratadine 10 mg capsule 10 mg FEEDING TUBE DAILY 01/16/21 01/20/21 losartan 100 mg tablet 100 mg FEEDING TUBE DAILY 01/16/21 01/20/21 Allergies Allergy/AdvReac Type Severity Reaction Status Date / Time No Known Allergies Allergy Verified 05/02/21 22:05 Review of Systems Review of Systems: ROS unobtainable: Yes unobtainable due to mental status PMFSH Past Medical History Medical History Cholecystostomy tube dysfunction COPD (chronic obstructive pulmonary disease) Depression G tube feedings High cholesterol Hypertension Stroke Tobacco abuse Surgical History Surgical History History of ankle surgery Family History Family History Other Cancer Cerebrovascular accident Diabetes mellitus Heart disease Hypertension Social History Social History Social History: The patient is . She has 2 sons. The patient tells me that she is going to go live with her son when she is out of the detention. The patient is disabled. The patient still continues to smoke less than a pack a cigarettes a day. She denies any alcohol or illicit drugs. She is listed as a full code. Smoking packs per day: 0.5 Smoking cigarettes per day: 10.0 Smoking status: Current every day smoker Tobacco type: cigarettes Alcohol intake: never Substance use: never Substance use type: does not use Additional occupation/education comments: disabled Gender identity (if v
[2021-05-05 23:07] LABS: Basophils Percent Auto 0.2 % (0.2-1.2); Eosinophils Percent Auto 0.1 % (0-4.4); Hematocrit 31.4 % (37.0-47.0); Hemoglobin 10.2 g/dL (12.0-15.0); Immature Granulocyte Absolute 0.06 K/mm3 (0.00-0.031); Immature Granulocyte Percent A 0.4 % (0-0.5); Lymphocytes Absolute Auto 0.59 K/mm3 (0.9-3.2); Lymphocytes Percent Auto 4.1 % (18.3-44.2); Mean Corpuscular HGB Conc 32.5 g/dl (32-36); Mean Corpuscular Volume 80.1 fl (80-100); Mean Platelet Volume 10.2 fl (7.4-10.4); Monocytes Absolute Auto 0.9 K/mm3 (0.1-0.6); Monocytes Percent Auto 6.3 % (2.6-8.5); Neutrophils Percent Auto 88.9 % (45.5-73.1); Platelet Count Result 313 k/mm3 (150-375); Red Blood Count 3.92 M/mm3 (4.2-5.4); Red Cell Distribution Width 14.9 % (11.5-14.5); White Blood Count 14.6 K/mm3 (4.5-10.0)
[2021-05-05 23:15] VITALS: BP 161/92; PULSE 120; RESP 22; TEMP 37.2; O2SAT 95
[2021-05-05 23:16] LABS: Alanine Aminotransferase 19 U/L (4-35); Alkaline Phosphatase 123 U/L (38-126); Anion Gap 12 mmol/L (8-16); Aspartate Amino Transferase 20 U/L (14-36); Bilirubin,Total 0.6 mg/dL (0.2-1.3); Blood Urea Nitrogen 19 mg/dL (7-17); Calcium 9.3 mg/dL (8.4-10.2); Carbon Dioxide 26 mmol/L (22-30); Chloride 96 mmol/L (98-107); Estimated Glomerular Filt Rate > 60; Glucose 241 mg/dL (65-110); Lipase 39 U/L (23-300); Potassium 3.5 mmol/L (3.4-5.0); Sodium 134 mmol/L (137-145)
[2021-05-05 23:21] LABS: INR 1.1; Partial Thromboplastin Time 34.5 SECONDS (22.3-36.8); Prothrombin Time 14.1 Seconds (11.1-14.7)
[2021-05-06] VITALS (13 sets, daily range): BP systolic 117–156; BP diastolic 59–88; PULSE 101–117; RESP 17–25; TEMP 35.8–37.9; O2SAT 92–97; BMI 20.8
[2021-05-06] MEDS: SODIUM CHLORIDE 0.9% IV 1,000 ML 999 ML IV CONT (00:20)
[2021-05-06] MEDS: ONDANSETRON INJ 4 MG/2 ML VIAL IV PUSH (00:22)
[2021-05-06 00:29] LABS: Lactic Acid Reflex 1.4 mmol/L (0.7-2.1)
[2021-05-06 00:42] LABS: Troponin I < 0.012 ng/mL (0.000-0.034)
--- NOTE | 2021-05-06 00:59 | PM.CNGS ---
Assessment and Plan Assessment and plan (1) Sepsis: Code(s): A41.9 - Sepsis, unspecified organism Status: Acute Assessment and Plan: broad spectrum antibiotics, will setup for perc drainage of abscess (2) Abscess of abdominal wall: Code(s): L02.211 - Cutaneous abscess of abdominal wall Status: Acute Assessment and Plan: see above (3) Stroke: Qualifiers: CVA mechanism: unspecified Qualified Code(s): I63.9 - Cerebral infarction, unspecified Code(s): I63.9 - Cerebral infarction, unspecified Status: Chronic Assessment and Plan: management per primary team History of Present Illness Consult details Consult date: 05/06/21 Reason for consult: wound care Requesting physician: Sandra Rivera MD Narrative: Pt is a 61 y/o F c multiple med issues including s/p CVA, aphasia, G tube dependent presenting from [facility] c coffee ground emesis x 2. Pt also found to be septic and subsequent CT shows R sided abdominal wall abscess. Upon questioning, pt does nod her head when asked about pain in abdominal wall. Pt had perc cholecystostomy placed in December for acute cholecystitis. Per chart, tube fell out recently. Pt had been jackie diet and not having any abdominal pain. Review of Systems Review of Systems: ROS unobtainable: Yes unobtainable due to medical condition and unobtainable due to mental status PMFSH Past Medical History Medical History Cholecystostomy tube dysfunction COPD (chronic obstructive pulmonary disease) Depression G tube feedings High cholesterol Hypertension Stroke Tobacco abuse Surgical History Surgical History History of ankle surgery Family History Family History Other Cancer Cerebrovascular accident Diabetes mellitus Heart disease Hypertension Social History Social History Social History: The patient is . She has 2 sons. The patient tells me that she is going to go live with her son when she is out of the [facility]. The patient is disabled. The patient still continues to smoke less than a pack a cigarettes a day. She denies any alcohol or illicit drugs. She is listed as a full code. Smoking packs per day: 0.5 Smoking cigarettes per day: 10.0 Smoking status: Current every day smoker Tobacco type: cigarettes Alcohol intake: never Substance use: never Substance use type: does not use Additional occupation/education comments: disabled Gender identity (if verbalized by the patient): Female Spiritual care concerns: No Meds Home Medications and Allergies Home Medications Medication Instructions Recorded Confirmed Type albuterol 90 mcg/actuation aerosol 108 mcg INHALATION DAILY 01/16/21 01/20/21 History inhaler amlodipine 5 mg tablet 5 mg FEEDING TUBE DAILY 01/16/21 01/20/21 History aspirin 81 mg chewable tablet 81 mg FEEDING TUBE DAILY 01/16/21 01/20/21 History atorvastatin 80 mg tablet 80 mg PO HS 01/16/21 01/20/21 History bisacodyl 10 mg rectal suppository 10 mg RECTAL DAILY PRN 01/16/21 01/20/21 History carvedilol 3.125 mg tablet 3.125 mg FEEDING TUBE TID 01/16/21 01/20/21 History cholecalciferol (vitamin D3) 25 25 mcg FEEDING TUBE WEEKLY 01/16/21 01/20/21 History mcg (1,000 unit) capsule famotidine 20 mg tablet 20 mg FEEDING TUBE BID 01/16/21 01/20/21 History fluoxetine 20 mg capsule 20 mg FEEDING TUBE DAILY 01/16/21 01/20/21 History furosemide 40 mg tablet 40 mg FEEDING TUBE DAILY 01/16/21 01/20/21 History hydrocodone 5 mg-acetaminophen 325 1 tablet FEEDING TUBE BID PRN 01/16/21 01/20/21 History mg tablet loratadine 10 mg capsule 10 mg FEEDING TUBE DAILY 01/16/21 01/20/21 History losartan 100 mg tablet 100 mg FEEDING TUBE DAILY 01/16/21 01/20/21 History Allergies
[2021-05-06 01:17] LABS: Add Urine Microscopic? YES; Appearance Urine Clear (Clear); Bilirubin Urine Negative (Negative); Blood Urine Negative (Negative); Color Urine Yellow (Yellow); Glucose Urine UA 3+ mg/dL (Negative); Ketones Urine Negative (Negative); Leukocyte Esterase Ur Trace LEU/UL (Negative); Mucus Urine Moderate /lpf; Nitrate Urine Negative (Negative); Protein Urine 2+ mg/dL (Negative); Squamous Epithelial Cell Urine Many /hpf (Few)
[2021-05-06] MEDS: PANTOPRAZOLE SODIUM IV 40 MG VIAL 80 MG IV PUSH (01:24)
[2021-05-06 01:30] LABS: Specific Grav Ur 1.043 (1.001-1.035)
[2021-05-06] MEDS: SODIUM CHLORIDE 0.9% IV 2,000 ML/1,000 ML BAG 999 ML IV CONT (01:40)
[2021-05-06] MEDS: SODIUM CHLORIDE 0.9% IV 1,000 ML 125 ML IV CONT ×2 (04:00→12:17)
--- NOTE | 2021-05-06 06:40 | PC.NURSE ---
This patient, Marilyn Ram, was admitted to [facility] Surg Room 319-01. Patient/family oriented to hospital policies and general routines including ID bracelet, bed and alarms, visiting hours, pain management, procedures, bathroom and other care routines, personal items, smoking policy, room service/diet, and visiting hours. Information on how to activate the Rapid Response Team has been discussed. Patient/Family are encouraged to report perceived risks to care and to ask questions if they do not understand what they are told or what they should do.
[2021-05-06] MEDS: MORPHINE SULFATE (*CRX) 4 MG/ML INJ IV PUSH ×3 (09:07→21:46)
--- NOTE | 2021-05-06 11:42 | PM.IMHP ---
H&P: HPI History of Present Illness Date/Time: 05/06/21 11:42 Patient is a 61-year-old female with a history of intracranial hemorrhage, hemiplegia, aphasia, G-tube dependent, who presents for evaluation of coffee-ground emesis. Patient was noted to have coffee-ground emesis at outside prison facility this evening. Reportedly, 2 episodes of this. Patient is nonverbal at baseline but does nod yes and no. Nods yes when asked about abdominal pain. She is full code per chart review. Per further chart review, patient with percutaneous cholecystostomy tube placed by interventional radiology in December of this year at this hospital. Patient was transferred to [place] on 01/23 for evaluation by hepatobiliary, and then has had a repeat visit here for cholecystostomy tube dislodgment, general surgery had no further interventions needed for this at this point and patient discharged to prison. Per chart review, tube recently fell out. <Danette Tesfaye PA-C - Last Filed: 05/06/21 14:24> Chief Complaint: Abdominal pain <Danette Tesfaye PA-C - Last Filed: 05/06/21 14:24> Review of Systems Review of Systems: Limited due to clinical condition. <Danette Tesfaye PA-C - Last Filed: 05/06/21 14:24> [facility]LY [facility] Past Medical History Medical History: Medical History (Updated 05/06/21 @ 17:47 by Aston Morales MD) Cholecystostomy tube dysfunction Coffee ground emesis COPD (chronic obstructive pulmonary disease) Depression G tube feedings High cholesterol Hypertension Stroke Tobacco abuse <Danette Tesfaye PA-C - Last Filed: 05/06/21 14:24> Surgical History Surgical History: Surgical History History of ankle surgery <Danette Tesfaye PA-C - Last Filed: 05/06/21 14:24> Family History Family History: Family History Other Cancer Cerebrovascular accident Diabetes mellitus Heart disease Hypertension <Danette Tesfaye PA-C - Last Filed: 05/06/21 14:24> Social History Social History: Social History Social History: The patient is . She has 2 sons. The patient tells me that she is going to go live with her son when she is out of the prison. The patient is disabled. The patient still continues to smoke less than a pack a cigarettes a day. She denies any alcohol or illicit drugs. She is listed as a full code. Smoking packs per day: 0.5 Smoking cigarettes per day: 10.0 Smoking status: Current every day smoker Tobacco type: cigarettes Alcohol intake: unknown Substance use: unknown Substance use type: does not use Additional occupation/education comments: disabled Gender identity (if verbalized by the patient): Female <Danette Tesfaye PA-C - Last Filed: 05/06/21 14:24> Meds Home Medications and Allergies Home medications: Home Medications Medication Instructions Recorded Confirmed Type albuterol 90 mcg/actuation aerosol 108 mcg INHALATION DAILY 01/16/21 01/20/21 History inhaler amlodipine 5 mg tablet 5 mg FEEDING TUBE DAILY 01/16/21 01/20/21 History aspirin 81 mg chewable tablet 81 mg FEEDING TUBE DAILY 01/16/21 01/20/21 History atorvastatin 80 mg tablet 80 mg PO HS 01/16/21 01/20/21 History bisacodyl 10 mg rectal suppository 10 mg RECTAL DAILY PRN 01/16/21 01/20/21 History carvedilol 3.125 mg tablet 3.125 mg FEEDING TUBE TID 01/16/21 01/20/21 History cholecalciferol (vitamin D3) 25 25 mcg FEEDING TUBE WEEKLY 01/16/21 01/20/21 History mcg (1,000 unit) capsule famotidine 20 mg tablet 20 mg FEEDING TUBE BID 01/16/21 01/20/21 History fluoxetine 20 mg capsule 20 mg FEEDING TUBE DAILY 01/16/21 01/20/21 History furosemide 40 mg tablet 40 mg FEEDING TUBE DAILY 01/16/21 01/20/21 History hydrocodone 5 mg-acetaminophen 325 1 tablet FEEDI
--- NOTE | 2021-05-06 14:49 | PC.NURSE ---
On 05/06/21, the student, [ Sneha Harris], provided care and completed [facility] documentation on this patient. I have reviewed the student's documentation and agree with the findings.
--- NOTE | 2021-05-06 17:39 | WPDGICN ---
Assessment and Plan Assessment and plan (1) Sepsis: Code(s): A41.9 - Sepsis, unspecified organism Status: Acute Assessment and Plan: she came with sepsis, leukocytosis and abdominal wall abscess s/p drainage continue with antibiotics (2) Coffee ground emesis: Code(s): K92.0 - Hematemesis Status: Acute Assessment and Plan: started on iv protonix may need to do EGD to assess source of bleeding, hb ~ 10 (3) Abscess of abdominal wall: Code(s): L02.211 - Cutaneous abscess of abdominal wall Status: Acute (4) Gastrostomy status: Code(s): Z93.1 - Gastrostomy status Status: Acute (5) Aphasia: Code(s): R47.01 - Aphasia Status: Acute Assessment and Plan: from previous stroke, she has G-tube and lives in a correction GI Consult Note Consult date/time: 05/06/21 17:40 Reason for consult: coffee ground emesis HPI: Marilyn Ram is a 61 year old female with history of intracranial hemorrhage, hemiplegia, aphasia, G-tube dependent here after staff at the correction noted coffee-ground emesis x2. History obtained from records as she is nonverbal at baseline. She had percutaneous cholecystostomy tube placed by interventional radiology in December of this year here then transferred to [place] on 01/23 for evaluation by hepatobiliary, and then has had a repeat visit here for cholecystostomy tube dislodgment that finally fell out. ER evaluation found that she was septic and CT scan a/p reviewed, showed 1.8 x 1.5 cm intramuscular abscess along the tract of the cholecystostomy tube, which has been removed, cholelithiasis with gallbladder wall thickening, consistent with acute versus chronic cholecystitis, airspace and groundglass opacities in the lower lobes, right worse than left, consistent with atelectasis versus pneumonia, small sliding hiatal hernia. Patient was evaluated by surgery and now she has a drain and is on antibiotics. Review of Systems Review of Systems: ROS unobtainable: Yes unobtainable due to medical condition and unobtainable due to mental status PMFSH Past Medical History Medical History (Updated 05/06/21 @ 17:47 by Aston Morales MD) Cholecystostomy tube dysfunction Coffee ground emesis COPD (chronic obstructive pulmonary disease) Depression G tube feedings High cholesterol Hypertension Stroke Tobacco abuse Surgical History Surgical History History of ankle surgery Family History Family History Other Cancer Cerebrovascular accident Diabetes mellitus Heart disease Hypertension Social History Social History Social History: The patient is . She has 2 sons. The patient tells me that she is going to go live with her son when she is out of the correction. The patient is disabled. The patient still continues to smoke less than a pack a cigarettes a day. She denies any alcohol or illicit drugs. She is listed as a full code. Smoking packs per day: 0.5 Smoking cigarettes per day: 10.0 Smoking status: Current every day smoker Tobacco type: cigarettes Alcohol intake: unknown Substance use: unknown Substance use type: does not use Additional occupation/education comments: disabled Gender identity (if verbalized by the patient): Female Meds Home Medications and Allergies Home Medications Medication Instructions Recorded Confirmed Type albuterol 90 mcg/actuation aerosol 108 mcg INHALATION DAILY 01/16/21 01/20/21 History inhaler amlodipine 5 mg tablet 5 mg FEEDING TUBE DAILY 01/16/21 01/20/21 History aspirin 81 mg chewable tablet 81 mg FEEDING TUBE DAILY 01/16/21 01/20/21 History atorvastatin 80 mg tablet 80 mg PO HS 01/16/21 01/20/21 History bisacodyl 10 mg rectal suppository 10 mg RECTAL DAILY P
[2021-05-06] MEDS: carvediloL 3.125 MG TABLET FEED TUBE (20:57)
[2021-05-07] VITALS (18 sets, daily range): BP systolic 108–129; BP diastolic 58–79; PULSE 83–113; RESP 14–24; TEMP 36.3–37.1; O2SAT 92–99
[2021-05-07] MEDS: MORPHINE SULFATE (*CRX) 4 MG/ML INJ IV PUSH ×2 (03:26→10:36)
[2021-05-07 06:49] LABS: Basophils Percent Auto 0.2 % (0.2-1.2); Eosinophils Percent Auto 0.1 % (0-4.4); Hematocrit 26.4 % (37.0-47.0); Hemoglobin 8.4 g/dL (12.0-15.0); Immature Granulocyte Absolute 0.07 K/mm3 (0.00-0.031); Immature Granulocyte Percent A 0.7 % (0-0.5); Lymphocytes Absolute Auto 1.24 K/mm3 (0.9-3.2); Lymphocytes Percent Auto 11.7 % (18.3-44.2); Mean Corpuscular HGB Conc 31.8 g/dl (32-36); Mean Corpuscular Hemoglobin 25.9 pg (26-34); Mean Corpuscular Volume 81.5 fl (80-100); Mean Platelet Volume 10.6 fl (7.4-10.4); Monocytes Absolute Auto 0.5 K/mm3 (0.1-0.6); Monocytes Percent Auto 4.9 % (2.6-8.5); Neutrophils Absolute Auto 8.7 K/mm3 (1.3-6.7); Neutrophils Percent Auto 82.4 % (45.5-73.1); Platelet Count Result 291 k/mm3 (150-375); Red Blood Count 3.24 M/mm3 (4.2-5.4); Red Cell Distribution Width 14.6 % (11.5-14.5); White Blood Count 10.6 K/mm3 (4.5-10.0)
[2021-05-07 06:55] LABS: Anion Gap 14 mmol/L (8-16); Blood Urea Nitrogen 10 mg/dL (7-17); Calcium 7.8 mg/dL (8.4-10.2); Carbon Dioxide 18 mmol/L (22-30); Chloride 97 mmol/L (98-107); Estimated CRCL calculation 105 ml/min; Estimated Glomerular Filt Rate > 60; Glucose 161 mg/dL (65-110); Potassium 3.3 mmol/L (3.4-5.0); Sodium 129 mmol/L (137-145)
[2021-05-07] MEDS: DICLOFENAC SODIUM 1% 100 GM GEL (*BKC) 1 APPLIC TOPICAL (09:04)
[2021-05-07] MEDS: TOLNAFTATE 1% POWDER 45 GM BTL 1 APPLIC TOPICAL ×2 (09:04→22:53)
[2021-05-07] MEDS: KCL 40 MEQ/D5/0.9% SOD CHL 1,000 ML 70 ML IV CONT (09:40)
[2021-05-07] MEDS: PANTOPRAZOLE SODIUM IV 40 MG VIAL IV PUSH ×2 (10:43→21:00)
[2021-05-07] MEDS: carvediloL 12.5 MG TABLET PO ×3 (10:57→22:54)
--- NOTE | 2021-05-07 13:09 | PM.PNGS ---
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 S/p percutaneous drainage yesterday. Cultures sent and gram stain showing few gram neg bacilli. Perc drain today has bilious-appearing output. 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 Continue IV abx and monitor drain output. (2) Sepsis: Code(s): A41.9 - Sepsis, unspecified organism Status: Acute Assessment and Plan: Sepsis criteria met with leukocytosis, low grade fever, and leukocytosis, suspected secondary to abscess. See plan above. Continue IV antibiotics and IV fluids. Blood cultures NGTD. See plan above. (3) Abscess of abdominal wall: Code(s): L02.211 - Cutaneous abscess of abdominal wall Status: Acute Assessment and Plan: See plan above. (4) Coffee ground emesis: Code(s): K92.0 - Hematemesis Status: Acute Assessment and Plan: Plan for EGD today. Continue IV Protonix. (5) Stroke: Qualifiers: CVA mechanism: unspecified Qualified Code(s): I63.9 - Cerebral infarction, unspecified Code(s): I63.9 - Cerebral infarction, unspecified Status: Chronic Assessment and Plan: management per primary team Additional Plan I have discussed the plan of care with Dr. Tse. Subjective Subjective Date/Time Seen: 05/07/21 12:09 Patient reports: still having pain and afebrile (no fever since yesterday at 1200 temp 100.3F) Interval history: 61 year old with hx of stroke, COPD, HTN, and an episode of acute cholecystitis in December 2020 that was treated with antibiotics and cholecystostomy tube placement. She was shipped to [facility] for bloody output from the tube and ultimately discharged back to the senior care. She came to the ER on 05/02/21 from the [facility] after she accidentally pulled her cholecystostomy tube out. She was discharged back to the [facility] with instruction to f/u with [facility]. She then presented to the ER again 2 nights ago with coffee ground emesis. She had leukocytosis and suspicion for sepsis. CT abd/pelvis incidentally noted a small deep abscess near the muscle in the area where her previous cholecystostomy tube was located, in the RUQ, with some surrounding inflammation. She is s/p percutaneous drainage of this fluid collection today. Cultures sent. She is now seen and examined. Although she has some aphasia from her previous stroke, she is able to nod to yes or no questions and answer some simple questions. She does nod yes to having abdominal pain, and point to the RUQ when asked to point to the pain. Denies nausea or recent vomiting. Review of Systems Review of Systems: ROS unobtainable: Yes unobtainable due to mental status (limisted due to aphasia) Exam Const: General: comfortable, alert and awake Orientation/consciousness: Other orientation findings (aphasia with hx stroke) GI: Inspection: Abdominal wall edema right (mild pitting edema and pink discoloration of the skin on the right side of the abd extending laterally) and other (mildly distended) GI Palp: Yes Soft to palpation, Yes Tenderness to palpation present (GI) (RUQ/RLQ) and Yes Guarding due to palpation present (GI) (RUQ) Auscultation: normal bowel sounds Other: G tube in place Percutaneous drain in place with bilious-appearing output (about 200 cc in bag) Neuro: Speech: aphasia Gait exam (Neuro): Unable to assess gait Extrem: General: other (right-sided weakness) Psych: Insight: Limited insight present (Psych) Judgement: Limited judgement present (Psych) Objective Data Vital Signs Vital Signs: Vital Signs - 24 hr 05/06/21 14:10 05/06/21 16:00 05/06/21 20:00 Temperature 96.5 F L Pulse Rate 110 H 101 H 117 H Respiratory Rate 18 17 Blood Pressure 144/78 H Pulse Oximetry 95 93 10
--- NOTE | 2021-05-07 13:14 | WPDANESEPPF ---
Anes - Initial Pre Proc Eval Procedure: Operation Date: 05/07/21 15:30 Proposed Procedures p Esophagogastroduodenoscopy - Aston Morales MD Date/Time: 05/07/21 13:14 Surgeon: Danette Tesfaye PA-C Pre Op Diagnosis: Intra Abdominal Abscess, Myositis, Sepsis Patient Data Age: 61 Gender: F Height: 1.63 m Weight: 55.1 kg Last Vital Signs Temp 36.3 C L 05/07/21 09:21 Pulse 107 H 05/07/21 10:57 Resp 14 05/07/21 09:26 BP 125/79 05/07/21 09:21 Pulse Ox 96 05/07/21 09:26 Allergies Allergy/AdvReac Type Severity Reaction Status Date / Time No Known Allergies Allergy Verified 05/02/21 22:05 Home Medications Medication Instructions Recorded Confirmed Type albuterol 90 mcg/actuation aerosol 108 mcg INHALATION DAILY 01/16/21 05/06/21 History inhaler aspirin 81 mg chewable tablet 81 mg FEEDING TUBE DAILY 01/16/21 05/06/21 History atorvastatin 80 mg tablet 80 mg PO HS 01/16/21 05/06/21 History bisacodyl 10 mg rectal suppository 10 mg RECTAL DAILY PRN 01/16/21 05/06/21 History cholecalciferol (vitamin D3) 25 25 mcg FEEDING TUBE DAILY 01/16/21 05/06/21 History mcg (1,000 unit) capsule famotidine 20 mg tablet 20 mg FEEDING TUBE BID 01/16/21 05/06/21 History fluoxetine 20 mg capsule 20 mg FEEDING TUBE BID 01/16/21 05/06/21 History hydrocodone 5 mg-acetaminophen 325 1 tablet FEEDING TUBE BID PRN 01/16/21 05/06/21 History mg tablet loratadine 10 mg capsule 10 mg FEEDING TUBE DAILY 01/16/21 05/06/21 History losartan 100 mg tablet 100 mg FEEDING TUBE DAILY 01/16/21 05/06/21 History acetaminophen [Tylenol] 650 mg PO ONCE PRN 05/06/21 05/06/21 History carvedilol [Coreg] 12.5 mg PO TID 05/06/21 05/06/21 History diclofenac sodium 4 g TOPICAL DAILY 05/06/21 05/06/21 History magnesium citrate [Citroma] 300 ml PO DAILY PRN 05/06/21 05/06/21 History magnesium hydroxide [Milk of 15 ml PO HS PRN 05/06/21 05/06/21 History Magnesia] miconazole nitrate 1 applic TOPICAL BID 05/06/21 05/06/21 History ondansetron HCl [Zofran] 4 mg PO Q8H PRN 05/06/21 05/06/21 History sodium phosphates [Fleet Enema] 118 ml RECTAL ONCE PRN 05/06/21 05/06/21 History Laboratory Tests 05/07/21 05/07/21 05/07/21 05:58 05:58 08:42 WBC 10.6 K/mm3 H K/mm3 (4.5-10.0) RBC 3.24 M/mm3 L M/mm3 (4.2-5.4) Hgb 8.4 g/dL L g/dL (12.0-15.0) Hct 26.4 % L % (37.0-47.0) MCV 81.5 fl fl (80-100) MCH 25.9 pg L pg (26-34) MCHC 31.8 g/dl L g/dl (32-36) RDW 14.6 % H % (11.5-14.5) Plt Count 291 k/mm3 k/mm3 (150-375) MPV 10.6 fl H fl (7.4-10.4) Immature Gran % (Auto) 0.7 % H % (0-0.5) Neut % (Auto) 82.4 % H % (45.5-73.1) Lymph % (Auto) 11.7 % L % (18.3-44.2) [place] % (Auto) 4.9 % % (2.6-8.5) Eos % (Auto) 0.1 % % (0-4.4) Baso % (Auto) 0.2 % % (0.2-1.2) Lymph # (Auto) 1.24 K/mm3 K/mm3 (0.9-3.2) [place] # (Auto) 0.5 K/mm3 K/mm3 (0.1-0.6) Eos # (Auto) 0.0 K/mm3 K/mm3 (0-0.3) Baso # (Auto) 0.0 K/mm3 K/mm3 (0.0-0.1) Abs Immat Gran (auto) 0.07 K/mm3 H K/mm3 (0.00-0.031) Absolute Neuts (auto) 8.7 K/mm3 H K/mm3 (1.3-6.7) Absolute Nucleated RBC 0.0 K/mm3 K/mm3 (0.0-0.012) Nucleated RBC % 0.0 % % (0.0-0.2) Sodium 129 mmol/L L mmol/L (137-145) Potassium 3.3 mmol/L L mmol/L (3.4-5.0) Chloride 97 mmol/L L mmol/L (98-107) Carbon Dioxide 18 mmol/L L mmol/L (22-30) Anion Gap 14 mmol/L mmol/L (8-16) BUN 10 mg/dL D mg/dL (7-17) Creatinine 0.40 mg/dL L mg/dL (0.7-1.0) Estim Creat Clear Calc 105 ml/min ml/min Estimated GFR > 60 (59 - ) Glucose 161 mg/dL H mg/dL (65-110) Lactic Acid 1.0 mmol/L mmol/L (0.7-2.1) Calcium 7.8 mg/dL L mg/dL (8.4-10.2)
--- NOTE | 2021-05-07 13:25 | PM.IMPN ---
Progress Note: A&P Assessment and Plan (1) Abscess of abdominal wall: Code(s): L02.211 - Cutaneous abscess of abdominal wall <TYLER Riley Last Filed: 05/07/21 15:44> Status: Acute <TYLER Riley Last Filed: 05/07/21 15:44> Assessment and Plan: Although non verbal at baseline, during interview pt does nod her head when asked about pain in abdominal wall. Pt had percutaneous cholecystostomy placed in December for acute cholecystitis. Per chart, tube fell out recently. CT showed R sided abdominal wall abscess. General surgery consulted, had abscess drained by IR yesterday. Continue Cefepime and Vanc. Appreciate general surgery input for further management. <TYLER Riley Last Filed: 05/07/21 15:44> (2) Sepsis: Qualifiers: Sepsis acute organ dysfunction status: unspecified Sepsis type: sepsis due to unspecified organism Qualified Code(s): A41.9 - Sepsis, unspecified organism <TYLER Riley Last Filed: 05/07/21 15:44> Code(s): A41.9 - Sepsis, unspecified organism <TYLER Riley Last Filed: 05/07/21 15:44> Status: Acute <TYLER Riley Last Filed: 05/07/21 15:44> Assessment and Plan: Tachycardic, low grade fever, with leukocytosis of 14.6 on arrival. Likely secondary to abdominal wall abscess. Pt was started on Cefepime and Vanc in ED. Leukocytosis improved today at 10.6. Lactate 1.4. She has remained afebrile x24 hours and tachycardia has improved after restarting her home Coreg. See plan above. Continue IV antibiotics and IV fluids. Blood cultures NGTD. <TYLER Riley Last Filed: 05/07/21 15:44> (3) Coffee ground emesis: Code(s): K92.0 - Hematemesis <TYLER Riley Last Filed: 05/07/21 15:44> Status: Acute <TYLER Riley Last Filed: 05/07/21 15:44> Assessment and Plan: detention reported 2 episodes of coffee ground emesis on 05/05/21. GI was consulted and she is being taken to GI lab for EGD today. Hgb yesterday 10.2 and today 8.4, however pt does have hx of chronic anemia. Could also be dilution due to IVF. BP stable in the 120s and 130s systolic. Management pending EGD findings. Will continue to monitor blood pressure and check H/H q6hr. Pt taken to GI lab, preliminary report via RN is that pt has hiatal hernia and esophagitis. GI states to resume home tube feedings. 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 S/p percutaneous drainage yesterday. Cultures sent and gram stain showing few gram neg bacilli. Per general surgery: Perc drain today has bilious-appearing output. 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 Continue IV abx and monitor drain output. <TYLER Riley Last Filed: 05/07/21 15:44> (5) Stroke: Qualifiers: CVA mechanism: unspecified Qualified Code(s): I63.9 - Cerebral infarction, unspecified <TYLER Riley Last Filed: 05/07/21 15:44> Code(s): I63.9 - Cerebral infarction, unspecified <TYLER Riley Last Filed: 05/07/21 15:44> Status: Chronic <TYLER Riley Last Filed: 05/07/21 15:44> Assessment and Plan: Chronic w/ residual motor weakness. Pt non verbal at baseline but will answer yes or no. <Danette Tesfaye PA-C - Last Filed: 05/07/21 15:44> (6) Hypokalemia: Code(s): E87.6 - Hypokalemia <Danette Tesfaye PA-C - [place]
[2021-05-07 13:36] LABS: Vancomycin Trough 6.8 ug/mL (10.0-20.0)
--- NOTE | 2021-05-07 13:43 | PC.NURSE ---
Patient transferred to GI Lab via stretcher at 1330.
[2021-05-07] MEDS: LACTATED RINGERS 1,000 ML 150 ML IV CONT (13:46)
[2021-05-07 13:54] LABS: Hematocrit 27.7 % (37.0-47.0); Hemoglobin 8.9 g/dL (12.0-15.0)
--- NOTE | 2021-05-07 16:13 | PC.NURSE ---
On 05/07/21, the student, Silvana Watts, provided care and completed [facility] documentation on this patient. I have reviewed the student's documentation and agree with the findings.
[2021-05-07] MEDS: ACETAMINOPHEN 325 MG TABLET 650 MG PO (16:52)
[2021-05-07] MEDS: FAMOTIDINE 20 MG TABLET FEED TUBE (16:54)
[2021-05-07] MEDS: FLUoxetine HCL 20 MG CAPSULE FEED TUBE (16:55)
[2021-05-07 18:03] LABS: Glucose Point of Care 172 mg/dl (65-105)
[2021-05-07 18:43] LABS: Hematocrit 23.5 % (37.0-47.0); Hemoglobin 7.7 g/dL (12.0-15.0)
[2021-05-07] MEDS: ATORVASTATIN 40 MG TABLET 80 MG PO (21:00)
[2021-05-08] VITALS (10 sets, daily range): BP systolic 109–164; BP diastolic 53–80; PULSE 87–110; RESP 18–28; TEMP 36.5–36.8; O2SAT 90–100; BMI 20.8
[2021-05-08 01:11] LABS: Hematocrit 25.2 % (37.0-47.0); Hemoglobin 8.2 g/dL (12.0-15.0)
[2021-05-08] MEDS: carvediloL 12.5 MG TABLET PO ×2 (06:25→22:13)
[2021-05-08] MEDS: ONDANSETRON INJ 4 MG/2 ML VIAL IV PUSH ×2 (06:25→14:58)
[2021-05-08 06:42] LABS: Basophils Percent Auto 0.3 % (0.2-1.2); Eosinophils Percent Auto 0.3 % (0-4.4); Hematocrit 25.8 % (37.0-47.0); Hemoglobin 8.4 g/dL (12.0-15.0); Immature Granulocyte Absolute 0.07 K/mm3 (0.00-0.031); Immature Granulocyte Percent A 0.8 % (0-0.5); Lymphocytes Absolute Auto 0.96 K/mm3 (0.9-3.2); Lymphocytes Percent Auto 10.7 % (18.3-44.2); Mean Corpuscular HGB Conc 32.6 g/dl (32-36); Mean Corpuscular Hemoglobin 25.8 pg (26-34); Mean Corpuscular Volume 79.1 fl (80-100); Mean Platelet Volume 10.2 fl (7.4-10.4); Monocytes Absolute Auto 0.3 K/mm3 (0.1-0.6); Monocytes Percent Auto 3.7 % (2.6-8.5); Neutrophils Absolute Auto 7.6 K/mm3 (1.3-6.7); Neutrophils Percent Auto 84.2 % (45.5-73.1); Platelet Count Result 304 k/mm3 (150-375); Red Blood Count 3.26 M/mm3 (4.2-5.4); Red Cell Distribution Width 14.4 % (11.5-14.5)
[2021-05-08 06:58] LABS: Anion Gap 8 mmol/L (8-16); Blood Urea Nitrogen 6 mg/dL (7-17); Calcium 8.7 mg/dL (8.4-10.2); Carbon Dioxide 24 mmol/L (22-30); Chloride 101 mmol/L (98-107); Estimated CRCL calculation 86 ml/min; Estimated Glomerular Filt Rate > 60; Glucose 193 mg/dL (65-110); Potassium 2.7 mmol/L (3.4-5.0); Sodium 133 mmol/L (137-145)
--- NOTE | 2021-05-08 07:27 | PM.IMPN ---
Progress Note: A&P Additional Plan START OF DOCTOR LINDA?S PROGRESS NOTE Subjective: The patient is minimally verbal but she complains of pain on the right side of her abdomen. Aside from this she endorses no complaints Objective: General: -Alert -mild distress -No dyspnea -No tachypnea Heart: -Regular rate -Regular rhythm -No murmurs -No gallops -No rubs Lungs: -No wheeze -No rhonchi -No rales Abdomen: -Normal bowel sounds in all four quadrants -No rebound -No guarding -No tenderness -there is a percutaneous cholecystostomy tube on the right side of the abdomen Extremities: -2/4 pulse in all four extremities -No clubbing -No cyanosis -No edema Additional Details / Additional Findings / Exceptions / Miscellaneous: Pertinent Laboratory Results / Pertinent Radiology Results / Pertinent Diagnostic Results / Pertinent Vital Signs: Vital signs stable, hemoglobin 8.4, MCV 79.1, potassium 4.7, sodium 133 Assessment / Plan: 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 Patient status post percutaneous drainage on May 06, 2021. Vancomycin 1250 mg IV q.12 hours post cefepime 2 g IV q.8 hours Cholelithiasis with acute versus chronic cholecystitis. Vancomycin 1250 mg IV q.12 hours post cefepime 2 g IV q.8 hours Hematemesis/coffee-ground emesis. Patient status post EGD May 07, 2021 with Gastroenterology demonstrating grade 2 reflux esophagitis. Pepcid 20 mg G-tube b.i.d. plus Protonix 40 mg IV b.i.d. COPD History of CVA/intracranial hemorrhage with hemiplegia, with resultant dysphagia. Patient status post G-tube placement. Lipitor 80 mg G-tube q.h.s. Hyperlipidemia. Lipitor 80 mg G-tube q.h.s. Hypertension. Coreg 12.5 mg G-tube q.8 hours plus losartan 100 mg G-tube daily Depression. Prozac 20 mg G-tube b.i.d. Smoker. Patient counseled regarding smoking cessation GERD. Pepcid 20 mg G-tube b.i.d. plus Protonix 40 mg of IV b.i.d. Chronic pain. Voltaren 1% gel to be applied to affected area daily Seasonal allergies. Claritin 10 mg G-tube daily Microcytic anemia. Will monitor hemoglobin intermittently. Check serum ferritin, iron panel, fecal occult blood Hypokalemia. Will monitor potassium levels intermittently supplements as necessary Osteopenia Hyponatremia, chronic, intermittent. Monitor sodium levels intermittently Diabetes. Will check fingerstick glucose q.a.c. and HS and provide insulin sliding scale Query pneumonia. Vancomycin 1250 mg IV q.12 hours plus cefepime 2 g IV q.8 hours DVT prophylaxis. Bilateral 80 Disposition: Anticipate discharge within 48 hours however I will wait input from Gastroenterology and General surgery END OF DOCTOR LINDA?S PROGRESS NOTE Subjective Date/time seen: 05/08/21 07:27 Objective Data Vital Signs Vital Signs: Vital Signs - 24 hr 05/07/21 08:00 05/07/21 09:21 05/07/21 09:26 Temperature 97.4 F L Pulse Rate 107 H 107 H 107 H Respiratory Rate 14 14 Blood Pressure 125/79 Pulse Oximetry 96 96 96 05/07/21 10:57 05/07/21 12:00 05/07/21 13:47 Temperature 98.3 F Pulse Rate 107 H 99 106 H Respiratory Rate 18 Blood Pressure 128/60 Pulse Oximetry 94 05/07/21 14:46 05/07/21 14:56 05/07/21 15:06 Temperature Pulse Rate 98 102 H 109 H Respiratory Rate 24 H 19 22 H Blood Pressure 126/71 119/72 125/75 Pulse Oximetry 99 97 95 05/07/21 15:39 05/07/21 16:00 05/07/21 16:53 Temperature 97.9 F Pulse Rate 104 H 113 H 109 H Respiratory Rate 18 Blood Pressure 129/61 Pulse Oximetry 97 05/07/21 20:00 05/07/21 22:00 05/07/21 22:54 Temperature 97.8 F Pulse Rate 83 86 101 H Respiratory Rate 20 Blood Pressure 108/58 L Pulse Oximetry 92 05/08/21 00:00 05/08/21 04:00 05/08/21 05:46 Temperature 98.3 F Pulse Rate 98 98 87 Respiratory Rate 20 Blood Pressure 109/53 L Pulse Oximetry 90 05/08/21 06:25 Temperature
[2021-05-08] MEDS: LORATADINE 10 MG TABLET FEED TUBE (08:21)
[2021-05-08] MEDS: POTASSIUM CHLORIDE 20 MEQ PACKET (FOR LIQUID) 40 MEQ FEED TUBE ×3 (08:21→12:41)
[2021-05-08] MEDS: PANTOPRAZOLE SODIUM IV 40 MG VIAL IV PUSH ×2 (08:21→22:13)
[2021-05-08] MEDS: FLUoxetine HCL 20 MG CAPSULE FEED TUBE ×2 (08:21→17:30)
[2021-05-08] MEDS: LOSARTAN POTASSIUM 100 MG TABLET FEED TUBE (08:21)
[2021-05-08] MEDS: TOLNAFTATE 1% POWDER 45 GM BTL 1 APPLIC TOPICAL ×2 (08:22→22:14)
[2021-05-08 08:55] LABS: Iron < 10 ug/dL (37-170)
--- NOTE | 2021-05-08 09:37 | WPDANESPN ---
Anes - Prog Note Post-Op Date/Time: 05/08/21 09:37 Cardiovascular status: normal Respiratory status: normal Airway patency: baseline Mental status: baseline Post-Op hydration status: normal Vital Signs: Last Vital Signs Temp 36.8 C 05/08/21 05:46 Pulse 98 05/08/21 06:25 Resp 20 05/08/21 05:46 BP 109/53 L 05/08/21 05:46 Pulse Ox 90 05/08/21 05:46 Pain Score (VAS): 0 I/O: Intake & Output 05/07/21 05/08/21 05/08/21 23:59 07:59 15:59 Intake Total 390 400 Output Total 150 Balance 390 250 Laboratory Tests 05/08/21 06:14 05/08/21 06:14 05/07/21 05/07/21 05/07/21 12:47 12:55 13:51 WBC RBC Hgb 8.9 L Hct 27.7 L MCV MCH MCHC RDW Plt Count MPV Immature Gran % (Auto) Neut % (Auto) Lymph % (Auto) [place] % (Auto) Eos % (Auto) Baso % (Auto) Lymph # (Auto) [place] # (Auto) Eos # (Auto) Baso # (Auto) Abs Immat Gran (auto) Absolute Neuts (auto) Absolute Nucleated RBC Nucleated RBC % Sodium Potassium Chloride Carbon Dioxide Anion Gap BUN Creatinine Estim Creat Clear Calc Estimated GFR Glucose POC Capillary Glucose Calcium Iron < 10 L TIBC 164 L % Saturation Pending Ferritin 302.00 H Vancomycin Trough 6.8 L 05/07/21 05/07/21 05/08/21 17:54 18:23 00:45 WBC RBC Hgb 7.7 L 8.2 L Hct 23.5 L 25.2 L MCV MCH MCHC RDW Plt Count MPV Immature Gran % (Auto) Neut % (Auto) Lymph % (Auto) [place] % (Auto) Eos % (Auto) Baso % (Auto) Lymph # (Auto) [place] # (Auto) Eos # (Auto) Baso # (Auto) Abs Immat Gran (auto) Absolute Neuts (auto) Absolute Nucleated RBC Nucleated RBC % Sodium Potassium Chloride Carbon Dioxide Anion Gap BUN Creatinine Estim Creat Clear Calc Estimated GFR Glucose POC Capillary Glucose 172 H Calcium Iron TIBC % Saturation Ferritin Vancomycin Trough 05/08/21 05/08/21 06:14 06:14 WBC 9.0 RBC 3.26 L Hgb 8.4 L Hct 25.8 L MCV 79.1 L MCH 25.8 L MCHC 32.6 RDW 14.4 Plt Count 304 MPV 10.2 Immature Gran % (Auto) 0.8 H Neut % (Auto) 84.2 H Lymph % (Auto) 10.7 L [place] % (Auto) 3.7 Eos % (Auto) 0.3 Baso % (Auto) 0.3 Lymph # (Auto) 0.96 [place] # (Auto) 0.3 Eos # (Auto) 0.0 Baso # (Auto) 0.0 Abs Immat Gran (auto) 0.07 H Absolute Neuts (auto) 7.6 H Absolute Nucleated RBC 0.0 Nucleated RBC % 0.0 Sodium 133 L Potassium 2.7 L* Chloride 101 Carbon Dioxide 24 Anion Gap 8 BUN 6 L Creatinine 0.50 L Estim Creat Clear Calc 86 Estimated GFR > 60 Glucose 193 H POC Capillary Glucose Calcium 8.7 Iron TIBC % Saturation Ferritin Vancomycin Trough Microbiology 05/06/21 13:19 Abscess Anaerobic Culture - Preliminary Post-procedural complaints: none Patient Feedback: Patient satisfied with anesthetic care.
[2021-05-08 09:48] LABS: Percent Iron Saturation < 6 % (20-50)
--- NOTE | 2021-05-08 09:56 | PM.PNGS ---
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 Status: Acute Assessment and Plan: cont drain, abx, jackie feeds and exam benign, ok to dc back to [facility]CF from surgical standpoint c f/u in 2 wks p dc (2) Sepsis: Qualifiers: Sepsis acute organ dysfunction status: unspecified Sepsis type: sepsis due to unspecified organism Qualified Code(s): A41.9 - Sepsis, unspecified organism Code(s): A41.9 - Sepsis, unspecified organism Status: Acute Assessment and Plan: see above, leukocytosis resolved, mental status back to baseline Subjective Subjective Date/Time Seen: 05/08/21 09:56 no acute issues, jackie TFs, some mild pain around RUQ drain Review of Systems Review of Systems: ROS unobtainable: Yes unobtainable due to medical condition Exam Const: General: comfortable, no acute distress and ill appearing Resp: Auscultation: clear to auscultation bilaterally Cardio: Rate: regular rate Rhythm: regular rhythm GI: Inspection: normal to inspection and non-distended GI Palp: Yes Soft to palpation, Yes Tenderness to palpation present (GI), No Guarding due to palpation present (GI) and No Rigid due to palpation Other: drain c mod bilious output Objective Data Vital Signs Vital Signs: Vital Signs - 24 hr 05/07/21 10:57 05/07/21 12:00 05/07/21 13:47 Temperature 36.8 C Pulse Rate 107 H 99 106 H Respiratory Rate 18 Blood Pressure 128/60 Pulse Oximetry 94 05/07/21 14:46 05/07/21 14:56 05/07/21 15:06 Temperature Pulse Rate 98 102 H 109 H Respiratory Rate 24 H 19 22 H Blood Pressure 126/71 119/72 125/75 Pulse Oximetry 99 97 95 05/07/21 15:39 05/07/21 16:00 05/07/21 16:53 Temperature 36.6 C Pulse Rate 104 H 113 H 109 H Respiratory Rate 18 Blood Pressure 129/61 Pulse Oximetry 97 05/07/21 20:00 05/07/21 22:00 05/07/21 22:54 Temperature 36.6 C Pulse Rate 83 86 101 H Respiratory Rate 20 Blood Pressure 108/58 L Pulse Oximetry 92 05/08/21 00:00 05/08/21 04:00 05/08/21 05:46 Temperature 36.8 C Pulse Rate 98 98 87 Respiratory Rate 20 Blood Pressure 109/53 L Pulse Oximetry 90 05/08/21 06:25 Temperature Pulse Rate 98 Respiratory Rate Blood Pressure Pulse Oximetry Intake/Output Intake/Output: Intake & Output 05/05/21 05/06/21 05/07/21 05/08/21 23:59 23:59 23:59 23:59 Intake Total 3750 2064 400 Output Total 150 Balance 3750 2064 250 Meds/Results Medications: Active Medications Generic Name Dose Route Start Last Admin Trade Name Freq PRN Reason Stop Dose Admin Acetaminophen 650 mg 05/07/21 15:34 Acetaminophen Elixir 325 Mg/10.15 Ml Udc PO Q4H PRN Mild Pain (1-3) or Fever Acetaminophen 650 mg 05/07/21 15:34 05/07/21 16:52 Acetaminophen 325 Mg Tablet PO 650 mg Q4H PRN Administration Moderate Pain (4-6) Albuterol 2 puff 05/07/21 02:50 Albuterol Sulfate (*Sp) Aerosol 1 Puff INHALATION Q6H PRN Shortness Of Breath Atorvastatin Calcium 80 mg 05/07/21 21:00 05/07/21 21:00 Atorvastatin 40 Mg Tablet PO 80 mg HS SANDRA Administration Carvedilol 12.5 mg 05/07/21 08:35 05/08/21 06:25 Carvedilol 12.5 Mg Tablet PO 12.5 mg Q8HR SANDRA Administration Dextrose 12.5 gm 05/08/21 07:23 Dextrose 50% 25 Gm/50 Ml Syringe IV PUSH PRN PRN Hypoglycemia Protocol Diclofenac Sodium 1 applic 05/07/21 09:00 05/07/21 09:04 Diclofenac Sodium 1% 100 Gm Gel (*Bkc) TOPICAL 1 applic DAILY SANDRA Administration Famotidine 20 mg 05/07/21 09:00 05/08/21 08:21 Famotidine 20 Mg Tablet FEED TUBE Not Given BID SANDRA Fluoxetine HCl 20 mg 05/07/21 09:00 05/08/21 08:21 Fluoxetine Hcl 20 Mg Capsule FEED TUBE 20 mg BID SANDRA Administration Glucagon 1 mg 05/08/21 07:23 Glucagon For Inj 1 Mg Vial IM PRN PRN Hypoglycemia Protocol Glucose 15 gm
[2021-05-08 12:02] LABS: Hemoglobin 8.7 g/dL (12.0-15.0)
[2021-05-08 12:47] LABS: Glucose Point of Care 144 mg/dl (65-105)
--- NOTE | 2021-05-08 16:56 | WPDGIPROGNO ---
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 Status: Acute Assessment and Plan: drain in place, she is not septic anymore (4) Abscess of abdominal wall: Code(s): L02.211 - Cutaneous abscess of abdominal wall Status: Acute (5) Aphasia: Code(s): R47.01 - Aphasia Status: Acute (6) G tube feedings: Code(s): Z93.1 - Gastrostomy status Status: Inactive Subjective Date/time seen: 05/08/21 16:56 Interval history: had episode of emesis after bolus of tube feeding Review of Systems Review of Systems: All systems reviewed & are unremarkable except as noted in HPI and below Exam Const: General: ill appearing chronically HENMT: General nose exam: Normal nares present Eyes: Sclera: sclerae normal Neck: Neck: supple Resp: Auscultation: clear to auscultation bilaterally Cardio: Rate: regular rate GI: GI Palp: Yes Tenderness to palpation present (GI) Auscultation: normal bowel sounds Other: G tube clean, dry, intact Rt abdomen drain in place Skin: General skin exam: no rashes or lesions noted Neuro: Cognition (Neuro): abnormal cognition Other: she is non-verbal Extrem: General: normal to inspection Objective Data Vital Signs Vital Signs: Vital Signs - 24 hr 05/07/21 20:00 05/07/21 22:00 05/07/21 22:54 Temperature 97.8 F Pulse Rate 83 86 101 H Respiratory Rate 20 Blood Pressure 108/58 L Pulse Oximetry 92 05/08/21 00:00 05/08/21 04:00 05/08/21 05:46 Temperature 98.3 F Pulse Rate 98 98 87 Respiratory Rate 20 Blood Pressure 109/53 L Pulse Oximetry 90 05/08/21 06:25 05/08/21 08:20 05/08/21 12:00 Temperature Pulse Rate 98 88 95 Respiratory Rate Blood Pressure Pulse Oximetry 05/08/21 14:00 Temperature 97.7 F Pulse Rate 99 Respiratory Rate 18 Blood Pressure 117/60 Pulse Oximetry 98 Intake/Output Intake/Output: Intake & Output 05/05/21 05/06/21 05/07/21 05/08/21 23:59 23:59 23:59 23:59 Intake Total 3750 2064 400 Output Total 150 Balance 3750 2064 250 Meds/Results Medications: Active Medications Generic Name Dose Route Start Last Admin Trade Name Freq PRN Reason Stop Dose Admin Acetaminophen 650 mg 05/07/21 15:34 Acetaminophen Elixir 325 Mg/10.15 Ml Udc PO Q4H PRN Mild Pain (1-3) or Fever Acetaminophen 650 mg 05/07/21 15:34 05/07/21 16:52 Acetaminophen 325 Mg Tablet PO 650 mg Q4H PRN Administration Moderate Pain (4-6) Albuterol 2 puff 05/07/21 02:50 Albuterol Sulfate (*Sp) Aerosol 1 Puff INHALATION Q6H PRN Shortness Of Breath Atorvastatin Calcium 80 mg 05/07/21 21:00 05/07/21 21:00 Atorvastatin 40 Mg Tablet PO 80 mg HS SANDRA Administration Carvedilol 12.5 mg 05/07/21 08:35 05/08/21 06:25 Carvedilol 12.5 Mg Tablet PO 12.5 mg Q8HR SANDRA Administration Dextrose 12.5 gm 05/08/21 07:23 Dextrose 50% 25 Gm/50 Ml Syringe IV PUSH PRN PRN Hypoglycemia Protocol Diclofenac Sodium 1 applic 05/07/21 09:00 05/07/21 09:04 Diclofenac Sodium 1% 100 Gm Gel (*Bkc) TOPICAL 1 applic DAILY SANDRA Administration Famotidine 20 mg 05/07/21 09:00 05/08/21 08:21 Famotidine 20 Mg Tablet FEED TUBE Not Given BID SANDRA Fluoxetine HCl 20 mg 05/07/21 09:00 05/08/21 08:21 Fluoxetine Hcl 20 Mg Capsule FEED TUBE 20 mg BID SANDRA Administration Glucagon
[2021-05-08 17:42] LABS: Glucose Point of Care 216 mg/dl (65-105)
[2021-05-08] MEDS: INSULIN ASPART (*BKC) 100 UNITS/ML SUB-Q (17:42)
[2021-05-08] MEDS: ATORVASTATIN 40 MG TABLET 80 MG PO (22:13)
[2021-05-09] VITALS (11 sets, daily range): BP systolic 133–145; BP diastolic 63–77; PULSE 84–103; RESP 14–20; TEMP 35.8–36.7; O2SAT 96–99
[2021-05-09 02:33] LABS: Vancomycin Trough 16.8 ug/mL (10.0-20.0)
[2021-05-09 02:52] LABS: Glucose Point of Care 116 mg/dl (65-105)
[2021-05-09] MEDS: ACETAMINOPHEN ELIXIR 325 MG/10.15 ML UDC 650 MG PO (05:28)
[2021-05-09] MEDS: carvediloL 12.5 MG TABLET PO (05:29)
[2021-05-09 06:53] LABS: Hematocrit 26.5 % (37.0-47.0); Hemoglobin 8.2 g/dL (12.0-15.0)
[2021-05-09 07:11] LABS: Anion Gap 9 mmol/L (8-16); Blood Urea Nitrogen 10 mg/dL (7-17); Calcium 8.3 mg/dL (8.4-10.2); Carbon Dioxide 18 mmol/L (22-30); Chloride 108 mmol/L (98-107); Estimated CRCL calculation 105 ml/min; Estimated Glomerular Filt Rate > 60; Glucose 180 mg/dL (65-110); Magnesium 1.9 mg/dL (1.6-2.3); Potassium 3.4 mmol/L (3.4-5.0); Sodium 135 mmol/L (137-145)
--- NOTE | 2021-05-09 07:11 | PM.IMPN ---
Progress Note: A&P Additional Plan START OF DOCTOR LINDA?S PROGRESS NOTE Subjective: The patient is alert however she is minimally verbal to nonverbal which is her baseline. I have attempted to explain to patient her current medical condition plan of care Objective: General: -Alert -mild distress -No dyspnea -No tachypnea Heart: -iRegular rate -Regular rhythm -No murmurs -No gallops -No rubs Lungs: -No wheeze -No rhonchi -No rales Abdomen: -Normal bowel sounds in all four quadrants -No rebound -No guarding -No tenderness -there is a percutaneous cholecystostomy tube on the right side of the abdomen Extremities: -2/4 pulse in all four extremities -No clubbing -No cyanosis -No edema Additional Details / Additional Findings / Exceptions / Miscellaneous: Pertinent Laboratory Results / Pertinent Radiology Results / Pertinent Diagnostic Results / Pertinent Vital Signs: Heart rate 103 beats per minute, blood pressure 145/63. Morning labs pending Assessment / Plan: 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 Patient status post percutaneous drainage on May 06, 2021. Vancomycin 1000 mg IV q.12 hours post cefepime 2 g IV q.8 hours Cholelithiasis with acute versus chronic cholecystitis. Vancomycin 1000 mg IV q.12 hours post cefepime 2 g IV q.8 hours Hematemesis/coffee-ground emesis. Patient status post EGD May 07, 2021 with Gastroenterology demonstrating grade 2 reflux esophagitis. Pepcid 20 mg G-tube b.i.d. plus Protonix 40 mg IV b.i.d. COPD History of CVA/intracranial hemorrhage with hemiplegia, with resultant dysphagia. Patient status post G-tube placement. Lipitor 80 mg G-tube q.h.s. Hyperlipidemia. Lipitor 80 mg G-tube q.h.s. Hypertension. Coreg 25 mg G-tube q.8 hours plus losartan 100 mg G-tube daily Depression. Prozac 20 mg G-tube b.i.d. Smoker. Patient counseled regarding smoking cessation GERD. Pepcid 20 mg G-tube b.i.d. plus Protonix 40 mg of IV b.i.d. Chronic pain. Voltaren 1% gel to be applied to affected area daily Seasonal allergies. Claritin 10 mg G-tube daily Microcytic anemia/iron deficiency anemia. Will monitor hemoglobin intermittently. Ferrous sulfate 325 mg G-tube b.i.d. plus vitamin-C 500 mg G-tube daily Hypokalemia. Will monitor potassium levels intermittently supplements as necessary Osteopenia Hyponatremia, chronic, intermittent. Monitor sodium levels intermittently Diabetes. Will check fingerstick glucose q.a.c. and HS and provide insulin sliding scale Query pneumonia. Vancomycin 1000 mg IV q.12 hours plus cefepime 2 g IV q.8 hours DVT prophylaxis. Bilateral scd Disposition: Patient appears medically stable for discharge on this day of May 09, 2021 with 1 weeks worth of IV antibiotics including vancomycin 1000 mg IV q.12 hours and cefepime 2 g IV q.8 hours with outpatient follow-up with General surgery END OF DOCTOR LINDA?S PROGRESS NOTE Subjective Date/time seen: 05/09/21 07:11 Objective Data Vital Signs Vital Signs: Vital Signs - 24 hr 05/08/21 08:20 05/08/21 12:00 05/08/21 14:00 Temperature 97.7 F Pulse Rate 88 95 99 Respiratory Rate 18 Blood Pressure 117/60 Pulse Oximetry 98 05/08/21 16:00 05/08/21 20:00 05/08/21 21:06 Temperature 98.3 F Pulse Rate 91 105 H 110 H Respiratory Rate 28 H Blood Pressure 164/80 H Pulse Oximetry 100 05/09/21 00:00 05/09/21 04:00 05/09/21 06:00 Temperature 97.6 F Pulse Rate 95 103 H 103 H Respiratory Rate 20 Blood Pressure 145/63 H Pulse Oximetry 96 Intake/Output Intake/Output: Intake & Output 05/06/21 05/07/21 05/08/21 05/09/21 23:59 23:59 23:59 23:59 Intake Total 3750 2064 1500 300 Output Total 190 Balance 3750 2064 1310 300 Meds/Results Medications: Active Medications Generic Name Dose Route Start Last Admin Trade Name Freq PRN Reason Stop Dose Admin Acetaminophen 650 mg 1
--- NOTE | 2021-05-09 07:32 | PM.PNGS ---
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 Status: Acute Assessment and Plan: doing well, cont drain, abx, ok to dc back to [facility], f/u 2 wks Subjective Subjective Date/Time Seen: 05/09/21 07:32 no acute issues overnight, pt denies pain on exam this am, jackie TF Review of Systems Review of Systems: ROS unobtainable: Yes unobtainable due to medical condition Exam Const: General: cooperative, comfortable and no acute distress Resp: Auscultation: clear to auscultation bilaterally Cardio: Rate: regular rate Rhythm: regular rhythm GI: Inspection: normal to inspection and non-distended GI Palp: Yes Soft to palpation, No Tenderness to palpation present (GI) and No Guarding due to palpation present (GI) Other: RUQ drain c minimal bilious output, G tube C/D/I Objective Data Vital Signs Vital Signs: Vital Signs - 24 hr 05/08/21 08:20 05/08/21 12:00 05/08/21 14:00 Temperature 36.5 C Pulse Rate 88 95 99 Respiratory Rate 18 Blood Pressure 117/60 Pulse Oximetry 98 05/08/21 16:00 05/08/21 20:00 05/08/21 21:06 Temperature 36.8 C Pulse Rate 91 105 H 110 H Respiratory Rate 28 H Blood Pressure 164/80 H Pulse Oximetry 100 05/09/21 00:00 05/09/21 04:00 05/09/21 06:00 Temperature 36.4 C Pulse Rate 95 103 H 103 H Respiratory Rate 20 Blood Pressure 145/63 H Pulse Oximetry 96 Intake/Output Intake/Output: Intake & Output 05/06/21 05/07/21 05/08/21 05/09/21 23:59 23:59 23:59 23:59 Intake Total 3750 2064 1500 300 Output Total 190 Balance 3750 2064 1310 300 Meds/Results Medications: Active Medications Generic Name Dose Route Start Last Admin Trade Name Freq PRN Reason Stop Dose Admin Acetaminophen 650 mg 05/07/21 15:34 05/09/21 05:28 Acetaminophen Elixir 325 Mg/10.15 Ml Udc PO 650 mg Q4H PRN Administration Mild Pain (1-3) or Fever Acetaminophen 650 mg 05/07/21 15:34 05/07/21 16:52 Acetaminophen 325 Mg Tablet PO 650 mg Q4H PRN Administration Moderate Pain (4-6) Albuterol 2 puff 05/07/21 02:50 Albuterol Sulfate (*Sp) Aerosol 1 Puff INHALATION Q6H PRN Shortness Of Breath Ascorbic Acid 500 mg 05/09/21 09:00 Ascorbic Acid 500 Mg Tablet PO DAILY SANDRA Atorvastatin Calcium 80 mg 05/07/21 21:00 05/08/21 22:13 Atorvastatin 40 Mg Tablet PO 80 mg HS SANDRA Administration Carvedilol 25 mg 05/09/21 14:00 Carvedilol 25 Mg Tablet PO Q8HR SANDRA Dextrose 12.5 gm 05/08/21 07:23 Dextrose 50% 25 Gm/50 Ml Syringe IV PUSH PRN PRN Hypoglycemia Protocol Diclofenac Sodium 1 applic 05/07/21 09:00 05/08/21 17:16 Diclofenac Sodium 1% 100 Gm Gel (*Bkc) TOPICAL Not Given DAILY [facility] Famotidine 20 mg 05/07/21 09:00 05/08/21 17:29 Famotidine 20 Mg Tablet FEED TUBE Not Given BID SANDRA Ferrous Sulfate 324 mg 05/09/21 08:00 Ferrous Sulfate 324 Mg Tablet PO BIDWM SANDRA Fluoxetine HCl 20 mg 05/07/21 09:00 05/08/21 17:30 Fluoxetine Hcl 20 Mg Capsule FEED TUBE 20 mg BID SANDRA Administration Glucagon 1 mg 05/08/21 07:23 Glucagon For Inj 1 Mg Vial IM PRN PRN Hypoglycemia Protocol Glucose 15 gm 05/08/21 07:23 Glucose Oral Gel 15 Gm Of Glucse In 37.5 Gm Tube PO PRN PRN Hypoglycemia Protocol Cefepime HCl 2 gm in 50 mls @ 100 mls/hr 05/06/21 09:00 05/09/21 02:20 Maxipime 2 Gm/D5w 50 Ml IVPB Infused Q8H SANDRA Infusion Dextrose 1,000 mls @ 100 mls/hr 05/08/21 07:23 Dextrose 5% 1,000 Ml IVPB PRN PRN Hypoglycemia Protocol Vancomycin HCl 1,000 mg in 250 mls @ 250 mls/hr 05/09/21 03:00 05/09/21 04:54 Vancomycin 1,000 Mg/D5w 250 Ml IVPB Infused Q12H SANDRA Infusion Insulin Aspart 2 - 5 units 05/08/21 12:00 05/09/21 05:41 Insulin Aspart (*Bkc) 100 Units/Ml SUB-Q Not Given Q6HR [facility] Protocol Monica
[2021-05-09 08:04] LABS: Glucose Point of Care 173 mg/dl (65-105)
[2021-05-09] MEDS: LIDOCAINE HCL 1% PF INJ 5 ML VIAL INFILTRATE (08:10)
[2021-05-09] MEDS: ASCORBIC ACID 500 MG TABLET PO (09:20)
[2021-05-09] MEDS: FERROUS SULFATE 324 MG TABLET PO ×2 (09:20→18:10)
[2021-05-09] MEDS: FAMOTIDINE 20 MG TABLET FEED TUBE ×2 (09:20→18:09)
[2021-05-09] MEDS: FLUoxetine HCL 20 MG CAPSULE FEED TUBE ×2 (09:20→18:10)
[2021-05-09] MEDS: LOSARTAN POTASSIUM 100 MG TABLET FEED TUBE (09:21)
[2021-05-09] MEDS: TOLNAFTATE 1% POWDER 45 GM BTL 1 APPLIC TOPICAL ×2 (09:21→21:22)
[2021-05-09] MEDS: PANTOPRAZOLE SODIUM IV 40 MG VIAL IV PUSH ×2 (09:21→21:22)
[2021-05-09] MEDS: LORATADINE 10 MG TABLET FEED TUBE (09:21)
[2021-05-09] MEDS: DICLOFENAC SODIUM 1% 100 GM GEL (*BKC) 1 APPLIC TOPICAL (09:21)
--- NOTE | 2021-05-09 10:41 | PM.DS ---
DS: Admitting Diagnosis Discharge Date 10:44 a.m. on May 09, 2021 Admitting Diagnosis Abdominal wall abscess associated with coli cysto cutaneous fistula, status post percutaneous drainage on May 06, 2020 DS: Summary Hospital Course Hospital Course: See discharge summary below Time Spent with Patient Time attestation: Total time spent providing and/or coordinating discharge services: START OF DOCTOR LINDA?S DISCHARGE SUMMARY Date of Admission: May 06, 2021 Date of Discharge: 10:41 a.m. on May 09, 2021 Primary Diagnosis: Abdominal wall abscess associated with cholecystitis 0 cutaneous fistula, status post percutaneous drainage on May 06, 2021 Secondary Diagnosis: Cholelithiasis with acute versus chronic cholecystitis Hematemesis/coffee-ground emesis for which patient status post EGD May 07, 2021 with Gastroenterology demonstrating grade 2 Jeevan reflux esophagitis COPD History of CVA/intracranial hemorrhage with hemiplegia, with resultant dysphagia. Patient status post G-tube placement Hyperlipidemia Hypertension Depression Smoker GERD Chronic pain Seasonal allergies Iron deficiency anemia/microcytic anemia Hypokalemia Osteopenia Hyponatremia, chronic, intermittent Diabetes Query pneumonia Consultations: General surgery, Gastroenterology Disposition: The patient will be advised follow-up with surgery as directed for postoperative evaluation for abdominal wall abscess associated with cholecystitis cutaneous fistula for which patient status post perc 8 percutaneous drainage on May 06, 2021 The patient is advised follow-up with Gastroenterology as directed for grade 2 reflux esophagitis The patient is advised follow-up with her primary care physician 5-7 days post discharge for post hospitalization evaluation Discharge Medications: Aspirin 81 mg G-tube daily Vitamin-D 25 mg G-tube daily Norvasc 5/325 mg G-tube b.i.d. p.r.n. pain Zofran 4 mg G-tube q.8 hours p.r.n. nausea/vomiting Proventil HFA: 90 mg per spray: 2+ q.6 hours p.r.n. shortness of breath/wheeze Miconazole 2% powder to be applied to affected area b.i.d. Cozaar 100 mg G-tube daily Claritin 10 mg G-tube daily Prozac 20 mg G-tube b.i.d. Pepcid 20 mg G-tube b.i.d. Lipitor 80 mg G-tube q.h.s. Diet low Fat neck 1% gel: 4 g to be applied to affected area daily Protonix 40 mg G-tube b.i.d. Ferrous sulfate 325 mg G-tube b.i.d. Coreg 25 mg G-tube b.i.d. Vitamin-C 500 mg G-tube daily Cefepime 2 g IV q.8 hours until 11:59 p.m. on May 15, 2021 Vancomycin 1 g IV q.12 hours until 11:59 p.m. on May 15, 2021 END OF DOCTOR LINDA?S DISCHARGE SUMMARY DS: Data Data Completed and Pending Labs on day of discharge: Labs from last 24 hours 05/09/21 05/09/21 05/09/21 06:22 06:22 05:36 Hgb 8.2 L Hct 26.5 L Sodium 135 L Potassium 3.4 Chloride 108 H Carbon Dioxide 18 L Anion Gap 9 BUN 10 Creatinine 0.40 L Estim Creat Clear Calc 105 Estimated GFR > 60 Glucose 180 H POC Capillary Glucose 173 H Calcium 8.3 L Magnesium 1.9 Vancomycin Trough 05/09/21 05/08/21 05/08/21 01:51 23:53 17:39 Hgb Hct Sodium Potassium Chloride Carbon Dioxide Anion Gap BUN Creatinine Estim Creat Clear Calc Estimated GFR Glucose POC Capillary Glucose 116 H 216 H Calcium Magnesium Vancomycin Trough 16.8 05/08/21 05/08/21 12:33 11:46 Hgb 8.7 L Hct 27.0 L Sodium Potassium Chloride Carbon Dioxide Anion Gap BUN Creatinine Estim Creat Clear Calc Estimated GFR Glucose POC Capillary Glucose 144 H Calcium Magnesium Vancomycin Trough Preliminary micro results at discharge 05/06/21 13:19 Anaerobic Culture - Preliminary Abscess Bacteroides fragilis group 05/06/21 00:06 Blood Culture - Prelimin
[2021-05-09 12:00] LABS: Glucose Point of Care 129 mg/dl (65-105)
--- NOTE | 2021-05-09 13:52 | WPDGIPROGNO ---
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 Status: Acute Assessment and Plan: drain in place, she is not septic anymore (4) Abscess of abdominal wall: Code(s): L02.211 - Cutaneous abscess of abdominal wall Status: Acute (5) Aphasia: Code(s): R47.01 - Aphasia Status: Acute (6) G tube feedings: Code(s): Z93.1 - Gastrostomy status Status: Inactive Subjective Date/time seen: 05/09/21 13:52 Interval history: tolerating tube feeding now Review of Systems Review of Systems: All systems reviewed & are unremarkable except as noted in HPI and below Exam Const: General: ill appearing chronically HENMT: General nose exam: Normal nares present Eyes: Sclera: sclerae normal Neck: Neck: supple Resp: Auscultation: clear to auscultation bilaterally Cardio: Rate: regular rate GI: GI Palp: Yes Tenderness to palpation present (GI) Auscultation: normal bowel sounds Other: G tube clean, dry, intact Rt abdomen drain in place Skin: General skin exam: no rashes or lesions noted Neuro: Cognition (Neuro): abnormal cognition Other: she is non-verbal Extrem: General: normal to inspection Objective Data Vital Signs Vital Signs: Vital Signs - 24 hr 05/08/21 14:00 05/08/21 16:00 05/08/21 20:00 Temperature 97.7 F Pulse Rate 99 91 105 H Respiratory Rate 18 Blood Pressure 117/60 Pulse Oximetry 98 05/08/21 21:06 05/09/21 00:00 05/09/21 04:00 Temperature 98.3 F Pulse Rate 110 H 95 103 H Respiratory Rate 28 H Blood Pressure 164/80 H Pulse Oximetry 100 05/09/21 06:00 05/09/21 08:00 Temperature 97.6 F Pulse Rate 103 H 86 Respiratory Rate 20 Blood Pressure 145/63 H Pulse Oximetry 96 Intake/Output Intake/Output: Intake & Output 05/06/21 05/07/21 05/08/21 05/09/21 23:59 23:59 23:59 23:59 Intake Total 3750 2064 1500 350 Output Total 190 Balance 3750 2064 1310 350 Meds/Results Medications: Active Medications Generic Name Dose Route Start Last Admin Trade Name Freq PRN Reason Stop Dose Admin Acetaminophen 650 mg 05/07/21 15:34 05/09/21 05:28 Acetaminophen Elixir 325 Mg/10.15 Ml Udc PO 650 mg Q4H PRN Administration Mild Pain (1-3) or Fever Acetaminophen 650 mg 05/07/21 15:34 05/07/21 16:52 Acetaminophen 325 Mg Tablet PO 650 mg Q4H PRN Administration Moderate Pain (4-6) Albuterol 2 puff 05/07/21 02:50 Albuterol Sulfate (*Sp) Aerosol 1 Puff INHALATION Q6H PRN Shortness Of Breath Ascorbic Acid 500 mg 05/09/21 09:00 05/09/21 09:20 Ascorbic Acid 500 Mg Tablet PO 500 mg DAILY SANDRA Administration Atorvastatin Calcium 80 mg 05/07/21 21:00 05/08/21 22:13 Atorvastatin 40 Mg Tablet PO 80 mg HS SANDRA Administration Carvedilol 25 mg 05/09/21 14:00 Carvedilol 25 Mg Tablet PO Q8HR SANDRA Dextrose 12.5 gm 05/08/21 07:23 Dextrose 50% 25 Gm/50 Ml Syringe IV PUSH PRN PRN Hypoglycemia Protocol Diclofenac Sodium 1 applic 05/07/21 09:00 05/09/21 09:21 Diclofenac Sodium 1% 100 Gm Gel (*Bkc) TOPICAL 1 applic DAILY SANDRA Administration Famotidine 20 mg 05/07/21 09:00 05/09/21 09:20 Famotidine 20 Mg Tablet FEED TUBE 20 mg BID SANDRA Administration Ferrous Sulfate 324 mg 05/09/21 08:00 05/09/21 09:20 Ferrous Sulfate 324 Mg Tablet PO 324 mg BIDWM SANDRA Administration Fluoxetine HCl 20 mg 05/07/21 09:00 05/09/21 09:20 Fluoxetine Hcl 20 Mg Capsule FEED TUBE 20 mg BID SANDRA Administration Glucagon 1 mg 10
--- NOTE | 2021-05-09 15:07 | PCNFU ---
Nutrition Follow-Up Complete: Swallowing Difficulties as related to CVA as evidenced by PEG feedings. Goal:Meet estimated nutritional needs. Patient is meeting goal. No new goal. Pt current nutrition is Glucerna 1.2 360ml 4 x daily with 180 free water flush 4 x daily. Last recorded weight is 55.1 kg, no new weight to report. Bowel Motility:+BM reported 05/08 Labs Reviewed: Glu 180,Na 135, Cr 0.4, Hgb 8.2.Hct 26.5 Meds Noted:Vancomycin, Vit C, Pepcid, Protonix, Zofran, Cozaar. Additional Notes: Nutrition follow up. Per nursing patient is tolerating tube feedings of Glucerna 1.2 bolus feedings 360 ml 4 x daily providing 1728 kcals and 86 gms protein. Free water flush 180 ml 4 x daily. Skin: right lateral abdomen. Monitoring: Will monitor every Wednesday and Wednesday.
[2021-05-09] MEDS: carvediloL 25 MG TABLET PO ×2 (15:18→21:21)
[2021-05-09] MEDS: CENTRAL LINE FLUSH 10 ML IV PUSH ×2 (15:19→21:24)
[2021-05-09 18:07] LABS: Glucose Point of Care 208 mg/dl (65-105)
[2021-05-09] MEDS: INSULIN ASPART (*BKC) 100 UNITS/ML SUB-Q (18:10)
[2021-05-09] MEDS: ATORVASTATIN 40 MG TABLET 80 MG PO (21:21)
[2021-05-10] VITALS (9 sets, daily range): BP systolic 119–149; BP diastolic 72–74; PULSE 68–96; RESP 16–18; TEMP 35.9–36.8; O2SAT 95–99
[2021-05-10 02:59] LABS: Glucose Point of Care 113 mg/dl (65-105)
[2021-05-10] MEDS: ACETAMINOPHEN ELIXIR 325 MG/10.15 ML UDC 650 MG PO (05:20)
[2021-05-10] MEDS: carvediloL 25 MG TABLET PO ×3 (05:21→21:38)
[2021-05-10] MEDS: CENTRAL LINE FLUSH 10 ML IV PUSH ×3 (05:22→21:39)
[2021-05-10 05:42] LABS: Glucose Point of Care 122 mg/dl (65-105)
--- NOTE | 2021-05-10 07:14 | PM.IMPN ---
Progress Note: A&P Additional Plan START OF DOCTOR LINDA?S PROGRESS NOTE Subjective: The patient is alert however she is minimally verbal to nonverbal which is her baseline. I have attempted to explain to patient her current medical condition plan of care Objective: General: -Alert -mild distress -No dyspnea -No tachypnea Heart: -Regular rate -Regular rhythm -No murmurs -No gallops -No rubs Lungs: -No wheeze -No rhonchi -No rales Abdomen: -Normal bowel sounds in all four quadrants -No rebound -No guarding -No tenderness -there is a percutaneous cholecystostomy tube on the right side of the abdomen Extremities: -2/4 pulse in all four extremities -No clubbing -No cyanosis -No edema Additional Details / Additional Findings / Exceptions / Miscellaneous: Pertinent Laboratory Results / Pertinent Radiology Results / Pertinent Diagnostic Results / Pertinent Vital Signs: Blood pressure 149/72 Assessment / Plan: 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 Patient status post percutaneous drainage on May 06, 2021. Vancomycin 1000 mg IV q.12 hours post cefepime 2 g IV q.8 hours Cholelithiasis with acute versus chronic cholecystitis. Vancomycin 1000 mg IV q.12 hours post cefepime 2 g IV q.8 hours Hematemesis/coffee-ground emesis. Patient status post EGD May 07, 2021 with Gastroenterology demonstrating grade 2 reflux esophagitis. Pepcid 20 mg G-tube b.i.d. plus Protonix 40 mg IV b.i.d. COPD History of CVA/intracranial hemorrhage with hemiplegia, with resultant dysphagia. Patient status post G-tube placement. Lipitor 80 mg G-tube q.h.s. Hyperlipidemia. Lipitor 80 mg G-tube q.h.s. Hypertension. Coreg 25 mg G-tube q.8 hours plus losartan 100 mg G-tube daily Depression. Prozac 20 mg G-tube b.i.d. Smoker. Patient counseled regarding smoking cessation GERD. Pepcid 20 mg G-tube b.i.d. plus Protonix 40 mg of IV b.i.d. Chronic pain. Voltaren 1% gel to be applied to affected area daily Seasonal allergies. Claritin 10 mg G-tube daily Microcytic anemia/iron deficiency anemia. Will monitor hemoglobin intermittently. Ferrous sulfate 325 mg G-tube b.i.d. plus vitamin-C 500 mg G-tube daily Hypokalemia. Will monitor potassium levels intermittently supplements as necessary Osteopenia Hyponatremia, chronic, intermittent. Monitor sodium levels intermittently Diabetes. Will check fingerstick glucose q.a.c. and HS and provide insulin sliding scale Query pneumonia. Vancomycin 1000 mg IV q.12 hours plus cefepime 2 g IV q.8 hours DVT prophylaxis. Bilateral scd Disposition: Patient medically stable for discharge. I will discuss with case management/social work END OF DOCTOR LINDA?S PROGRESS NOTE Subjective Date/time seen: 05/10/21 07:14 Objective Data Vital Signs Vital Signs: Vital Signs - 24 hr 05/09/21 08:00 05/09/21 12:00 05/09/21 15:02 Temperature 98.1 F Pulse Rate 86 91 84 Respiratory Rate 14 Blood Pressure 139/71 Pulse Oximetry 97 05/09/21 15:18 05/09/21 16:00 05/09/21 16:22 Temperature Pulse Rate 91 97 97 Respiratory Rate Blood Pressure Pulse Oximetry 05/09/21 20:00 05/09/21 22:00 05/10/21 00:00 Temperature 96.4 F L Pulse Rate 95 94 87 Respiratory Rate 18 Blood Pressure 133/77 Pulse Oximetry 99 05/10/21 04:00 05/10/21 06:00 Temperature 97.5 F L Pulse Rate 86 89 Respiratory Rate 18 Blood Pressure 149/72 H Pulse Oximetry 99 Intake/Output Intake/Output: Intake & Output 05/07/21 05/08/21 05/09/21 05/10/21 23:59 23:59 23:59 23:59 Intake Total 2063 1500 400 0 Output Total 190 10 Balance 2063 1310 390 0 Meds/Results Medications: Active Medications Generic Name Dose Route Start Last Admin Trade Name Freq PRN Reason Stop Dose Admin Acetaminophen 650 mg 05/07/21 15:34 05/10/21 05:20 Acetaminophen Elixir 325 Mg/10.15 Ml Udc PO 650 mg Q4H P
[2021-05-10] MEDS: FLUoxetine HCL 20 MG CAPSULE FEED TUBE ×2 (08:49→17:28)
[2021-05-10] MEDS: FAMOTIDINE 20 MG TABLET FEED TUBE ×2 (08:50→17:27)
[2021-05-10] MEDS: ASCORBIC ACID 500 MG TABLET PO (08:50)
[2021-05-10] MEDS: FERROUS SULFATE 324 MG TABLET PO ×2 (08:50→17:27)
[2021-05-10] MEDS: LORATADINE 10 MG TABLET FEED TUBE (08:51)
[2021-05-10] MEDS: LOSARTAN POTASSIUM 100 MG TABLET FEED TUBE (08:51)
[2021-05-10] MEDS: TOLNAFTATE 1% POWDER 45 GM BTL 1 APPLIC TOPICAL ×2 (08:51→21:38)
[2021-05-10] MEDS: DICLOFENAC SODIUM 1% 100 GM GEL (*BKC) 1 APPLIC TOPICAL (08:51)
[2021-05-10] MEDS: PANTOPRAZOLE SODIUM IV 40 MG VIAL IV PUSH ×2 (08:51→21:38)
[2021-05-10 12:05] LABS: Glucose Point of Care 145 mg/dl (65-105)
[2021-05-10 15:18] LABS: Vancomycin Trough < 5.0 ug/mL (10.0-20.0)
[2021-05-10 16:48] LABS: Glucose Point of Care 238 mg/dl (65-105)
[2021-05-10] MEDS: INSULIN ASPART (*BKC) 100 UNITS/ML SUB-Q (17:28)
[2021-05-10 18:00] LABS: Glucose Point of Care 221 mg/dl (65-105)
[2021-05-10] MEDS: ATORVASTATIN 40 MG TABLET 80 MG PO (21:38)
[2021-05-11] VITALS (10 sets, daily range): BP systolic 120–133; BP diastolic 60–61; PULSE 80–99; RESP 18; TEMP 35.7–37.3; O2SAT 95–99
[2021-05-11] MEDS: ACETAMINOPHEN ELIXIR 325 MG/10.15 ML UDC 650 MG PO (02:07)
[2021-05-11 03:57] LABS: Glucose Point of Care 157 mg/dl (65-105)
[2021-05-11] MEDS: carvediloL 25 MG TABLET PO ×3 (06:29→23:22)
[2021-05-11] MEDS: CENTRAL LINE FLUSH 10 ML IV PUSH ×3 (06:30→23:24)
--- NOTE | 2021-05-11 06:57 | PM.IMPN ---
Progress Note: A&P Additional Plan START OF DOCTOR LINDA?S PROGRESS NOTE Subjective: The patient is alert however she is minimally verbal to nonverbal which is her baseline. I have briefly awaken her and attempted to explain to patient her current medical condition plan of care Objective: General: -Alert -mild distress -No dyspnea -No tachypnea Heart: -Regular rate -Regular rhythm -No murmurs -No gallops -No rubs Lungs: -No wheeze -No rhonchi -No rales Abdomen: -Normal bowel sounds in all four quadrants -No rebound -No guarding -No tenderness -there is a percutaneous cholecystostomy tube on the right side of the abdomen Extremities: -2/4 pulse in all four extremities -No clubbing -No cyanosis -No edema Additional Details / Additional Findings / Exceptions / Miscellaneous: Pertinent Laboratory Results / Pertinent Radiology Results / Pertinent Diagnostic Results / Pertinent Vital Signs: Vital signs stable Assessment / Plan: 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 Patient status post percutaneous drainage on May 06, 2021. Vancomycin 1000 mg IV q.12 hours post cefepime 2 g IV q.8 hours Cholelithiasis with acute versus chronic cholecystitis. Vancomycin 1000 mg IV q.12 hours post cefepime 2 g IV q.8 hours Hematemesis/coffee-ground emesis. Patient status post EGD May 07, 2021 with Gastroenterology demonstrating grade 2 reflux esophagitis. Pepcid 20 mg G-tube b.i.d. plus Protonix 40 mg IV b.i.d. COPD History of CVA/intracranial hemorrhage with hemiplegia, with resultant dysphagia. Patient status post G-tube placement. Lipitor 80 mg G-tube q.h.s. Hyperlipidemia. Lipitor 80 mg G-tube q.h.s. Hypertension. Coreg 25 mg G-tube q.8 hours plus losartan 100 mg G-tube daily Depression. Prozac 20 mg G-tube b.i.d. Smoker. Patient counseled regarding smoking cessation GERD. Pepcid 20 mg G-tube b.i.d. plus Protonix 40 mg of IV b.i.d. Chronic pain. Voltaren 1% gel to be applied to affected area daily Seasonal allergies. Claritin 10 mg G-tube daily Microcytic anemia/iron deficiency anemia. Will monitor hemoglobin intermittently. Ferrous sulfate 325 mg G-tube b.i.d. plus vitamin-C 500 mg G-tube daily Hypokalemia. Will monitor potassium levels intermittently supplements as necessary Osteopenia Hyponatremia, chronic, intermittent. Monitor sodium levels intermittently Diabetes. Will check fingerstick glucose q.a.c. and HS and provide insulin sliding scale Query pneumonia. Vancomycin 1000 mg IV q.12 hours plus cefepime 2 g IV q.8 hours DVT prophylaxis. Bilateral scd Disposition: Patient medically stable for discharge. I will discuss with case management/social work END OF DOCTOR LINDA?S PROGRESS NOTE Subjective Date/time seen: 05/11/21 06:57 Objective Data Vital Signs Vital Signs: Vital Signs - 24 hr 05/10/21 08:00 05/10/21 12:00 05/10/21 14:00 Temperature 98.2 F Pulse Rate 68 71 82 Respiratory Rate 16 Blood Pressure 119/74 Pulse Oximetry 97 05/10/21 16:00 05/10/21 20:00 05/10/21 22:00 Temperature 96.7 F L Pulse Rate 78 83 96 Respiratory Rate 18 Blood Pressure 134/72 Pulse Oximetry 95 05/11/21 00:00 05/11/21 04:00 05/11/21 06:00 Temperature 96.5 F L Pulse Rate 99 85 89 Respiratory Rate 18 Blood Pressure 120/60 Pulse Oximetry 95 Intake/Output Intake/Output: Intake & Output 05/08/21 05/09/21 05/10/21 05/11/21 23:59 23:59 23:59 23:59 Intake Total 4902 091 1075 50 Output Total 190 10 30 Balance 4511 274 5775 50 Meds/Results Medications: Active Medications Generic Name Dose Route Start Last Admin Trade Name Freq PRN Reason Stop Dose Admin Acetaminophen 650 mg 05/07/21 15:34 05/11/21 02:07 Acetaminophen Elixir 325 Mg/10.15 Ml Udc PO 650 mg Q4H PRN Administration Mild Pain (1-3) or Fever Acetaminophen 650 mg 05/07/21 15:34 05/07/21 16:5
[2021-05-11 07:25] LABS: Glucose Point of Care 187 mg/dl (65-105)
[2021-05-11 08:28] LABS: Glucose Point of Care 137 mg/dl (65-105)
[2021-05-11] MEDS: ASCORBIC ACID 500 MG TABLET PO (08:53)
[2021-05-11] MEDS: FERROUS SULFATE 324 MG TABLET PO ×2 (08:53→17:22)
[2021-05-11] MEDS: DICLOFENAC SODIUM 1% 100 GM GEL (*BKC) 1 APPLIC TOPICAL (08:54)
[2021-05-11] MEDS: LOSARTAN POTASSIUM 100 MG TABLET FEED TUBE (08:54)
[2021-05-11] MEDS: FAMOTIDINE 20 MG TABLET FEED TUBE ×2 (08:54→17:23)
[2021-05-11] MEDS: FLUoxetine HCL 20 MG CAPSULE FEED TUBE ×2 (08:54→17:22)
[2021-05-11] MEDS: TOLNAFTATE 1% POWDER 45 GM BTL 1 APPLIC TOPICAL ×2 (08:55→23:24)
[2021-05-11] MEDS: PANTOPRAZOLE SODIUM IV 40 MG VIAL IV PUSH ×2 (08:55→23:22)
[2021-05-11] MEDS: LORATADINE 10 MG TABLET FEED TUBE (08:56)
[2021-05-11 12:35] LABS: Glucose Point of Care 149 mg/dl (65-105)
[2021-05-11 16:10] LABS: Vancomycin Trough 8.9 ug/mL (10.0-20.0)
[2021-05-11 18:21] LABS: Glucose Point of Care 151 mg/dl (65-105)
[2021-05-11] MEDS: ATORVASTATIN 40 MG TABLET 80 MG PO (23:22)
[2021-05-12] VITALS: PULSE 92
[2021-05-12 04:00] VITALS: PULSE 87
[2021-05-12 06:00] VITALS: BP 152/69; PULSE 96; RESP 18; TEMP 36.8; O2SAT 95
[2021-05-12] MEDS: carvediloL 25 MG TABLET PO (06:20)
[2021-05-12] MEDS: CENTRAL LINE FLUSH 10 ML IV PUSH (06:21)
[2021-05-12 06:32] LABS: Glucose Point of Care 150 mg/dl (65-105)
[2021-05-12 06:48] LABS: Estimated CRCL calculation 134 ml/min; Estimated Glomerular Filt Rate > 60
--- NOTE | 2021-05-12 06:48 | PM.IMPN ---
Progress Note: A&P Additional Plan START OF DOCTOR LINDA?S PROGRESS NOTE Subjective: The patient is alert however she is minimally verbal to nonverbal which is her baseline. She endorses no complaints post her. She nods her head in disagreement when queried about fever, rigors, nausea, vomiting, cough, wheeze, abdominal pain, chest pain, dyspnea. I have explained to the patient her current medical condition plan of care Objective: General: -Alert -mild distress -No dyspnea -No tachypnea Heart: -Regular rate -Regular rhythm -No murmurs -No gallops -No rubs Lungs: -No wheeze -No rhonchi -No rales Abdomen: -Normal bowel sounds in all four quadrants -No rebound -No guarding -No tenderness -there is a percutaneous cholecystostomy tube on the right side of the abdomen Extremities: -2/4 pulse in all four extremities -No clubbing -No cyanosis -No edema Additional Details / Additional Findings / Exceptions / Miscellaneous: Pertinent Laboratory Results / Pertinent Radiology Results / Pertinent Diagnostic Results / Pertinent Vital Signs: Blood pressure 152/69 Assessment / Plan: 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 Patient status post percutaneous drainage on May 06, 2021. Vancomycin 1250 mg IV q.12 hours post cefepime 2 g IV q.8 hours Cholelithiasis with acute versus chronic cholecystitis. Vancomycin 1250 mg IV q.12 hours post cefepime 2 g IV q.8 hours Hematemesis/coffee-ground emesis. Patient status post EGD May 07, 2021 with Gastroenterology demonstrating grade 2 reflux esophagitis. Pepcid 20 mg G-tube b.i.d. plus Protonix 40 mg IV b.i.d. COPD History of CVA/intracranial hemorrhage with hemiplegia, with resultant dysphagia. Patient status post G-tube placement. Lipitor 80 mg G-tube q.h.s. Hyperlipidemia. Lipitor 80 mg G-tube q.h.s. Hypertension. Coreg 25 mg G-tube q.8 hours plus losartan 100 mg G-tube daily Depression. Prozac 20 mg G-tube b.i.d. Smoker. Patient counseled regarding smoking cessation GERD. Pepcid 20 mg G-tube b.i.d. plus Protonix 40 mg of IV b.i.d. Chronic pain. Voltaren 1% gel to be applied to affected area daily Seasonal allergies. Claritin 10 mg G-tube daily Microcytic anemia/iron deficiency anemia. Will monitor hemoglobin intermittently. Ferrous sulfate 325 mg G-tube b.i.d. plus vitamin-C 500 mg G-tube daily Hypokalemia. Will monitor potassium levels intermittently supplements as necessary Osteopenia Hyponatremia, chronic, intermittent. Monitor sodium levels intermittently Diabetes. Will check fingerstick glucose q.a.c. and HS and provide insulin sliding scale Query pneumonia. Vancomycin 1000 mg IV q.12 hours plus cefepime 2 g IV q.8 hours DVT prophylaxis. Bilateral scd Disposition: Patient medically stable for discharge. I will discuss with case management/social work END OF DOCTOR LINDA?S PROGRESS NOTE Subjective Date/time seen: 05/12/21 06:48 Objective Data Vital Signs Vital Signs: Vital Signs - 24 hr 05/11/21 08:00 05/11/21 12:00 05/11/21 14:00 Temperature 99.2 F Pulse Rate 80 90 92 Respiratory Rate 18 18 Blood Pressure 126/60 Pulse Oximetry 95 99 05/11/21 14:56 05/11/21 16:00 05/11/21 20:00 Temperature Pulse Rate 94 90 86 Respiratory Rate Blood Pressure Pulse Oximetry 05/11/21 21:35 05/12/21 00:00 05/12/21 04:00 Temperature 96.3 F L Pulse Rate 88 92 87 Respiratory Rate 18 Blood Pressure 133/61 Pulse Oximetry 97 05/12/21 06:00 Temperature 98.3 F Pulse Rate 96 Respiratory Rate 18 Blood Pressure 152/69 H Pulse Oximetry 95 Intake/Output Intake/Output: Intake & Output 05/09/21 05/10/21 05/11/21 05/12/21 23:59 23:59 23:59 23:59 Intake Total 400 2019 400 50 Output Total 10 30 Balance 390 1989 400 50 Meds/Results Medications: Active Medications Generic Name Dose Route Start Last Admin Trade Name Sudeep
[2021-05-12 08:00] VITALS: PULSE 82
[2021-05-12] MEDS: LORATADINE 10 MG TABLET FEED TUBE (09:15)
[2021-05-12] MEDS: FLUoxetine HCL 20 MG CAPSULE FEED TUBE (09:16)
[2021-05-12] MEDS: LOSARTAN POTASSIUM 100 MG TABLET FEED TUBE (09:17)
[2021-05-12] MEDS: FERROUS SULFATE 324 MG TABLET PO (09:17)
[2021-05-12] MEDS: ASCORBIC ACID 500 MG TABLET PO (09:17)
[2021-05-12] MEDS: PANTOPRAZOLE SODIUM IV 40 MG VIAL IV PUSH (09:21)
[2021-05-12] MEDS: DICLOFENAC SODIUM 1% 100 GM GEL (*BKC) 1 APPLIC TOPICAL (09:21)
[2021-05-12] MEDS: TOLNAFTATE 1% POWDER 45 GM BTL 1 APPLIC TOPICAL (09:21)
[2021-05-12] MEDS: FAMOTIDINE 20 MG TABLET FEED TUBE (09:22)
[2021-05-12 12:00] VITALS: PULSE 91
[2021-05-12 12:17] LABS: Glucose Point of Care 163 mg/dl (65-105)
--- NOTE | 2021-05-13 05:58 | WPDCDIQUERY2 ---
CDI Query Clarification Request -Sepsis documented by EDP, H&P and first progress note. -No further mention of sepsis in your progress note Please clarify if sepsis was ruled in or ruled out. <Rebecca Wilson RN - Last Filed: 05/13/21 06:03>
== END 2021-05-12 14:27 | DRG 871 ==
LOC: ANHED 05-06 01:44 → ANH3MEDSUR 05-06 07:29
PROVIDERS: Internal Medicine; Internal Medicine Gastroenterology; Admitting Provider Internal Medicine; Emergency Provider Emergency Medicine; PCP Internal Medicine; Visit Provider Physician Assistant
PROC: 0DJ08ZZ Inspection of Upper Intestinal Tract, Via Natural or Artificial Opening Endoscopic (ICD-10-PCS; CPT 43235; principal; 2021-05-07 15:30)
DX: A41.9 Sepsis, unspecified organism (principal); K21.01 Gastro-esophageal reflux disease with esophagitis, with bleeding; J18.9 Pneumonia, unspecified organism; L02.211 Cutaneous abscess of abdominal wall; I69.159 Hemiplegia and hemiparesis following nontraumatic intracerebral hemorrhage affecting unspecified side; K80.12 Calculus of gallbladder with acute and chronic cholecystitis without obstruction; K92.0 Hematemesis; K82.3 Fistula of gallbladder; E87.1 Hypo-osmolality and hyponatremia; I69.191 Dysphagia following nontraumatic intracerebral hemorrhage; R13.10 Dysphagia, unspecified; I69.120 Aphasia following nontraumatic intracerebral hemorrhage; K44.9 Diaphragmatic hernia without obstruction or gangrene; J44.9 Chronic obstructive pulmonary disease, unspecified; I10 Essential (primary) hypertension; Z93.1 Gastrostomy status; Z79.82 Long term (current) use of aspirin; F17.210 Nicotine dependence, cigarettes, uncomplicated; E87.6 Hypokalemia; D64.9 Anemia, unspecified; J30.1 Allergic rhinitis due to pollen; F32.A Depression, unspecified; G89.29 Other chronic pain; M85.80 Other specified disorders of bone density and structure, unspecified site; E11.9 Type 2 diabetes mellitus without complications
CPT/HCPCS: 36415; 36569; 51701; 70450; 71045; 74177; 75989; 80048; 80053; 80202; 81001; 82565; 82728; 82948; 83540; 83550; 83605; 83690; 83735; 84484; 85014; 85018; 85025; 85610; 85730; 86850; 86900; 86901; 87040; 87070; 87075; 87076; 87077; 87186; 87205; 96361; 96365; 96367; 96368; 96375; 99285; A9270; C1729; C1751; C1769; C9113; J0131; J0692; J1815; J2001; J2270; J2405; J2704; J3370; J3480; J7030; J7060; J7120; Q9967

== ENCOUNTER 2021-06-17 09:07 | Outpatient (CLI) | payer MEDICARE, SELFPAY ==
--- NOTE | ~2021-06-17 | XR_ITS ---
EXAMINATION: XR barium swallow modified DATE: 06/17/2021 09:57 INDICATION: Dysphagia. TECHNIQUE: The patient was given barium-containing material of multiple consistencies to swallow by janessa sierra speech pathologist while I performed fluoroscopy. Dose-area product was 2.22 Gy-cm2. 3.2 minutes fluoroscopy time FINDINGS: Oral Stage: Within functional limits Pharyngeal Phase: Reduced laryngeal elevation Reduced tongue base retraction Aspiration Cervical/Esophageal Stage: Within functional limits IMPRESSION: Modified esophagram findings as above. Please refer to the speech therapy report for [facility] recommendations. Reviewed, dictated and finalized at [facility]. Reviewed, dictated and finalized at [facility]. [employer] MANAGER IMPRESSION: Modified esophagram findings as above. Please refer to the speech t herapy report for specific recommendations.
--- NOTE | 2021-06-17 10:39 | STOPEVAL ---
MODIFIED BARIUM SWALLOW STUDY Thank you for referring Marilyn Ram to [facility] [place] Attending Provider: Monalisa Balderas Therapy Assessment Status Assessment Status Assessment Status Evaluation Outpatient Past Medical History Past Medical History Other Source of Past Medical History Diagnosis list from nursing facility. Neurological History Hx Cerebrovascular Accident (CVA) Yes: 11/22/20 Cardiovascular History Evaluation Information Problem Diagnosis Dysphagia Onset 11/22/20 Cause CVA with aphasia and dysphagia Additional Evaluation Detail G-tube feedings for all nutrition and hydration Subjective Information Patient did not speak in front Query Text:As Reported By Patient/ of therapist. Family Diagnostic Tests X-Rays For This Problem Yes: Previous MBS assumed; assumed failed/G-tube placement Previous Treatments Previous Treatments For This Problem ST Therapy has been provided at SNF and previous hospitals Prior Level of Function Prior Swallow Level Prior Intake Method Alternative Feedings Prior Cognition/Communication Prior Communication Level Severe Impairment,Aphasia Prior Cognitive Function Dependent Prior Ability to Handle Finances Dependent Comments Additional Prior Level of Function It is assumed patient was Comments independent prior to CVA in October of 2020. Patient has receptive/expressive aphasia, essentially nonverbal today. Severe dysphagia expected based on results of today's MBS. Pain Assessment Timing of Pain Assessment Timing of Pain Assessment Assessment Self Report Self Report Pain Level 0 Pain Score Pain Score 0: Self Report Modified Barium Swallow Evaluation Consistency Moderately Thick Other Amount 3/4 teaspoon Method of Presentation Spoon Oral Preparatory Symptoms Within Functional Limits Oral Phase Symptoms Within Functional Limits Pharyngeal Phase Symptoms Laryngeal Penetration,Reduced Laryngeal Closure,Reduced Laryngeal Elevation Severity of Vallecular Residue None - 0% No Residue Severity of Pyriform Sinus Residue None - 0% No Residue 8 Point Laryngeal Penetration-Aspiration Material Enters Airway Below Scale Vocal Cords, Not Ejected Despite Effort Aspiration Timing During the Swallow Aspiration Severity Mild-Moderate Cervical/Esophageal Symptoms Within Functional Limits Moderately Thick 3 mL Method
== END 2021-06-17 09:08 | disposition home or self-care (01) ==
DX: R13.10 Dysphagia, unspecified (principal)
CPT/HCPCS: 92611

== ENCOUNTER 2021-10-19 23:02 | Emergency (ER) | payer MEDICARE, SELFPAY ==
--- NOTE | ~2021-10-19 | CT_ITS ---
EXAMINATION: CT abdomen pelvis w con DATE: 10/20/2021 01:27 INDICATION: Pulled cholecystostomy tube. Lower abdominal pain. TECHNIQUE: Computed tomography (CT) of the abdomen and pelvis was performed with 100 cc Omnipaque 350 intravenous contrast. The dose-length product was 289.06 mGy-cm. Automated exposure control and iter ative reconstruction technique were employed. COMPARISON: CT dated 05/05/2021. FINDINGS: There are gallstones. There is trace pericholecystic edema. Track for cholecystostomy sebastian ter noted extending through the subcutaneous fat without associated fluid collection to suggest absce ss. There is a PEG tube in expected position. The liver, spleen, pancreas, adrenal glands and kidneys are unremarkable. Nonobstructive bowel gas pattern. Complex fibroid uterus. No free air or free flui d. No acute osseous abnormality. IMPRESSION: 1. Cholelithiasis. Trace pericholecystic fluid. Cannot exclude cholecystitis. 2: No evidence for abscess associated with the cholecystostomy catheter tract. Reviewed, dictated and finalized at [facility].
[2021-10-19 23:02] VITALS: BP 171/88; PULSE 120; RESP 24; TEMP 37; O2SAT 96
--- NOTE | 2021-10-19 23:18 | ED.GENADULT ---
HPI - General Adult General Chief complaint: Urogenital-Female Stated complaint: pulled out suprapubic cath History of Present Illness HPI narrative: 61-year-old female presents to the emergency department [facility] a local [facility] for pulling out her cholecystostomy tube. Patient does have a history of CVA and is nonverbal. In December 2020 patient had a cholecystostomy tube placed due to her having acute cholecystitis and cholelithiasis at the time patient was not a candidate for cholecystectomy. In June patient did have the cholecystostomy tube replaced and did have a procedure by IR to have some of the stones removed. This was done at [facility]. Patient was discharged to a local prison and tonight the patient did accidentally dislodge the cholecystostomy tube. Patient is able to shake her head yes and no to questions and patient denies any pain at this time. Related Data Home Medications Medication Instructions Recorded Confirmed albuterol 90 mcg/actuation aerosol 108 mcg INHALATION DAILY 01/16/21 05/06/21 inhaler aspirin 81 mg chewable tablet 81 mg FEEDING TUBE DAILY 01/16/21 05/06/21 atorvastatin 80 mg tablet 80 mg PO HS 01/16/21 05/06/21 cholecalciferol (vitamin D3) 25 25 mcg FEEDING TUBE DAILY 01/16/21 05/06/21 mcg (1,000 unit) capsule famotidine 20 mg tablet 20 mg FEEDING TUBE BID 01/16/21 05/06/21 fluoxetine 20 mg capsule 20 mg FEEDING TUBE BID 01/16/21 05/06/21 hydrocodone 5 mg-acetaminophen 325 1 tablet FEEDING TUBE BID PRN 01/16/21 05/06/21 mg tablet loratadine 10 mg capsule 10 mg FEEDING TUBE DAILY 01/16/21 05/06/21 losartan 100 mg tablet 100 mg FEEDING TUBE DAILY 01/16/21 05/06/21 diclofenac sodium 4 g TOPICAL DAILY 05/06/21 05/06/21 miconazole nitrate 1 applic TOPICAL BID 05/06/21 05/06/21 ondansetron HCl [Zofran] 4 mg PO Q8H PRN 05/06/21 05/06/21 Allergies Allergy/AdvReac Type Severity Reaction Status Date / Time No Known Allergies Allergy Verified 05/02/21 22:05 Review of Systems Review of Systems: Patient denies any pain but review of systems is limited due to her being nonverbal. ROS unobtainable: Yes unobtainable due to medical condition [facility] Past Medical History Medical History (Updated 10/20/21 @ 02:31 by Troy Horne MD) Cholecystostomy tube dysfunction Coffee ground emesis COPD (chronic obstructive pulmonary disease) Depression Esophagitis G tube feedings High cholesterol Hypertension Stroke Tobacco abuse Surgical History Surgical History History of ankle surgery Family History Family History Other Cancer Cerebrovascular accident Diabetes mellitus Heart disease Hypertension Social History Social History Social History: The patient is . She has 2 sons. The patient tells me that she is going to go live with her son when she is out of the prison. The patient is disabled. The patient still continues to smoke less than a pack a cigarettes a day. She denies any alcohol or illicit drugs. She is listed as a full code. Smoking packs per day: 0.5 Smoking cigarettes per day: 10.0 Smoking status: Current every day smoker Tobacco type: cigarettes Alcohol intake: unknown Substance use: unknown Substance use type: does not use Additional occupation/education comments: disabled Gender identity (if verbalized by the patient): Female Spiritual care concerns: No Exam Narrative: APPEARANCE: Well appearing, no pain, no distress, well-nourished. HEAD: normocephalic, atraumatic. EYES: PERRLA/EOMI, conjunctivae clear. NOSE: Normal no drainage RESPIRATORY: Airway patent, respirations nonlabored. Clear to auscultation bilaterally, no rales, rhonchi, wheezing. CARDIOVASCULAR: Regular rate and rhythm without murmurs rubs or gallops. Tachycardia ABDOMINAL:
--- NOTE | 2021-10-19 23:36 | PC.NURSE ---
This RN spoke with Mirtha at [facility] who confirms catheter is a gallbladder drain due to gallstones. Pt arrives with wristband from unknown [facility] hospital. EDP Ozzie requesting records from previous admissions. Mirtha states she is unaware of which hospital pt was recently treated at, and is unable to find out. EDP notified.
[2021-10-19 23:58] VITALS: BP 160/82; PULSE 116; RESP 25; O2SAT 96
[2021-10-19] MEDS: SODIUM CHLORIDE 0.9% IV 500 ML 999 ML IV CONT (23:58)
--- NOTE | 2021-10-20 00:20 | PC.NURSE ---
Records requested from [facility]. Release form faxed to [employer] data warehouse developer.
[2021-10-20 00:39] LABS: Basophils Percent Auto 0.4 % (0.2-1.2); Eosinophils Absolute Auto 0.4 K/mm3 (0-0.3); Eosinophils Percent Auto 5.1 % (0-4.4); Hematocrit 39.3 % (37.0-47.0); Hemoglobin 12.4 g/dL (12.0-15.0); Immature Granulocyte Absolute 0.02 K/mm3 (0.00-0.031); Immature Granulocyte Percent A 0.3 % (0-0.5); Lymphocytes Absolute Auto 1.44 K/mm3 (0.9-3.2); Lymphocytes Percent Auto 19.5 % (18.3-44.2); Mean Corpuscular HGB Conc 31.6 g/dl (32-36); Mean Corpuscular Hemoglobin 25.3 pg (26-34); Mean Corpuscular Volume 80.2 fl (80-100); Mean Platelet Volume 10.9 fl (7.4-10.4); Monocytes Absolute Auto 0.4 K/mm3 (0.1-0.6); Monocytes Percent Auto 5.8 % (2.6-8.5); Neutrophils Absolute Auto 5.1 K/mm3 (1.3-6.7); Neutrophils Percent Auto 68.9 % (45.5-73.1); Platelet Count Result 327 k/mm3 (150-375); Red Cell Distribution Width 15.4 % (11.5-14.5); White Blood Count 7.4 K/mm3 (4.5-10.0)
[2021-10-20 00:45] LABS: Alanine Aminotransferase 19 U/L (4-35); Albumin Level 4.2 g/dL (3.5-5.1); Alkaline Phosphatase 122 U/L (38-126); Anion Gap 7 mmol/L (8-16); Aspartate Amino Transferase 25 U/L (14-36); Bilirubin,Total 0.2 mg/dL (0.2-1.3); Blood Urea Nitrogen 17 mg/dL (7-17); Calcium 9.7 mg/dL (8.4-10.2); Carbon Dioxide 27 mmol/L (22-30); Chloride 104 mmol/L (98-107); Estimated Glomerular Filt Rate > 60; Glucose 225 mg/dL (65-110); Lactic Acid Reflex 1.8 mmol/L (0.7-2.1); Lipase 157 U/L (23-300); Potassium 3.7 mmol/L (3.4-5.0); Sodium 138 mmol/L (137-145)
[2021-10-20 01:40] VITALS: BP 169/103; PULSE 112; RESP 20; O2SAT 99
[2021-10-20 02:23] VITALS: BP 143/96; PULSE 109
== END 2021-10-20 04:03 ==
PROVIDERS: Emergency Provider Emergency Medicine
DX: Z43.4 Encounter for attention to other artificial openings of digestive tract (principal); J44.9 Chronic obstructive pulmonary disease, unspecified; F32.A Depression, unspecified; E78.00 Pure hypercholesterolemia, unspecified; I10 Essential (primary) hypertension; Z86.73 Personal history of transient ischemic attack (TIA), and cerebral infarction without residual deficits; Z79.82 Long term (current) use of aspirin; F17.210 Nicotine dependence, cigarettes, uncomplicated; K80.20 Calculus of gallbladder without cholecystitis without obstruction
CPT/HCPCS: 36415; 74177; 80053; 83605; 83690; 85025; 99284; J7040; Q9967

== ENCOUNTER 2021-10-26 23:08 | Emergency (ER) | payer MEDICARE, SELFPAY ==
--- NOTE | ~2021-10-26 | CT_ITS ---
EXAMINATION: CT abdomen pelvis w con EXAM DATE: 10/27/2021 01:12 INDICATION: Pulled out cholecystostomy tube, abdominal pain. TECHNIQUE: Spiral CT of the abdomen and pelvis was performed following intravenous injection of 100 m L Omnipaque 350. Axial, coronal and sagittal images of the abdomen and pelvis were reviewed. The do se-length product (DLP) for this examination was 279.29 mGy-cm. The exposure was tailored according to patient size (auto mA exposure control), and iterative reconstruction (ASIR) was used as additiona l dose reduction technique. Comparison is made to prior examination from 10/20/2021. FINDINGS: The liver, spleen, adrenal glands and pancreas are unremarkable. Multiple gallstones. Enha ncing gallbladder mucosa, hazy wall with mild adjacent fat stranding. There is a tract of previously seen cholecystostomy tube. No focal pericholecystic abscess. Overall similar appearance to this than on CT scan from 10/20/2021. Portal and splenic veins are patent. Kidneys enhance symmetrically. The re is no hydronephrosis. Fibroid uterus. The bladder is unremarkable. There is no retroperitoneal or pelvic lymphadenopathy. There is mild to moderate scattered arteriosclerotic disease. The appendix is normal. There is a PEG tube in position. There is expected amount of colonic stool. No free intraperitoneal gas. The heart is normal in size. There are no pericardial or pleural e ffusions. Right basilar dependent groundglass opacity probably subsegmental atelectasis. There are no osteoblastic or osteolytic lesions identified. IMPRESSION: Persistent cholelithiasis, indistinct gallbladder hazy gallbladder wall without perichole cystic fluid collection. Possible chronic or acute cholecystitis. Reviewed, dictated and finalized at [facility]. IMPRESSION: Persistent cholelithiasis, indistinct gallbladder hazy gallbladder wall without pericholecystic fluid collection. Possible chronic or acute cholec ystitis.
[2021-10-26 23:14] VITALS: BP 150/84; PULSE 105; RESP 22; TEMP 36.7; O2SAT 100
--- NOTE | 2021-10-26 23:32 | PC.NURSE ---
This RN called [facility] and Torie RN unable to report anything on pt and unable to report when bili tube placed. Pt was just seen here last week for displaced tube, and this RN found that tube had been placed by IR at [facility]. We sent pt back to nursing facility without tube. Staff at facility unable to report if pt had tube replaced since last ER visit. Nurse Torie stated I don't know because I don't normally work here. Then this RN called [facility] warehouse pricing and inventory clerk and spoke with her. She reports pt had bili tube 10 wolof replaced by IR on 10/22/21. ED MD notified.
--- NOTE | 2021-10-26 23:57 | ED.GENADULT ---
HPI - General Adult General Chief complaint: Unspecified Stated complaint: pulled bilil tube out Time Seen by Provider: 10/26/21 23:33 History of Present Illness HPI narrative: Patient 61-year-old female that presents the emergency department with chief complaint of pulled out biliary drain. Patient has prior history of cholecystitis had a cholecystostomy tube placed at [facility] patient had the tube pulled on the and had the tube replaced on the [facility] as an outpatient per the nursing facility they found the tube removed from her with some superficial bleeding. The patient has otherwise been asymptomatic. They report no fevers and no other complaints. Related Data Home Medications Medication Instructions Recorded Confirmed albuterol 90 mcg/actuation aerosol 108 mcg INHALATION DAILY 01/16/21 05/06/21 inhaler aspirin 81 mg chewable tablet 81 mg FEEDING TUBE DAILY 01/16/21 05/06/21 atorvastatin 80 mg tablet 80 mg PO HS 01/16/21 05/06/21 cholecalciferol (vitamin D3) 25 25 mcg FEEDING TUBE DAILY 01/16/21 05/06/21 mcg (1,000 unit) capsule famotidine 20 mg tablet 20 mg FEEDING TUBE BID 01/16/21 05/06/21 fluoxetine 20 mg capsule 20 mg FEEDING TUBE BID 01/16/21 05/06/21 hydrocodone 5 mg-acetaminophen 325 1 tablet FEEDING TUBE BID PRN 01/16/21 05/06/21 mg tablet loratadine 10 mg capsule 10 mg FEEDING TUBE DAILY 01/16/21 05/06/21 losartan 100 mg tablet 100 mg FEEDING TUBE DAILY 01/16/21 05/06/21 diclofenac sodium 4 g TOPICAL DAILY 05/06/21 05/06/21 miconazole nitrate 1 applic TOPICAL BID 05/06/21 05/06/21 ondansetron HCl [Zofran] 4 mg PO Q8H PRN 05/06/21 05/06/21 Allergies Allergy/AdvReac Type Severity Reaction Status Date / Time No Known Allergies Allergy Verified 10/26/21 23:19 Review of Systems Review of Systems: A 10 system review of systems was completed on the patient and is negative except for what is stated in the HPI. Nursing and ancillary documentation was reviewed. [facility] Past Medical History Medical History Cholecystostomy tube dysfunction Coffee ground emesis COPD (chronic obstructive pulmonary disease) Depression Esophagitis G tube feedings High cholesterol Hypertension Stroke Tobacco abuse Surgical History Surgical History History of ankle surgery Family History Family History Other Cancer Cerebrovascular accident Diabetes mellitus Heart disease Hypertension Social History Social History Social History: The patient is . She has 2 sons. The patient tells me that she is going to go live with her son when she is out of the [facility]. The patient is disabled. The patient still continues to smoke less than a pack a cigarettes a day. She denies any alcohol or illicit drugs. She is listed as a full code. Smoking packs per day: 0.5 Smoking cigarettes per day: 10.0 Smoking status: Current every day smoker Tobacco type: cigarettes Alcohol intake: unknown Substance use: unknown Substance use type: does not use Additional occupation/education comments: disabled Gender identity (if verbalized by the patient): Female Spiritual care concerns: No Exam Narrative: GENERAL: Well-appearing, well-nourished, and in no acute distress. HEAD: Normocephalic, atraumatic. EYES: PERRLA and EOMI. ENT: Nares clear, no rhinorrhea or epistaxis. Mucous membranes moist. NECK: Supple. CHEST: Clear to auscultation. No respiratory distress. HEART: Regular rate and rhythm. No murmur heard. Normal peripheral pulses. ABDOMEN: Soft, nontender, nondistended, normal active bowel sounds. EXTREMITIES: Normal range of motion. No edema. SKIN: Warm, dry, no rash. NEURO: No focal deficits. Alert and able to respond by no
[2021-10-27 00:04] LABS: Basophils Percent Auto 0.4 % (0.2-1.2); Eosinophils Absolute Auto 0.2 K/mm3 (0-0.3); Eosinophils Percent Auto 3.4 % (0-4.4); Hematocrit 38.9 % (37.0-47.0); Hemoglobin 12.1 g/dL (12.0-15.0); Immature Granulocyte Absolute 0.02 K/mm3 (0.00-0.031); Immature Granulocyte Percent A 0.3 % (0-0.5); Lymphocytes Absolute Auto 1.85 K/mm3 (0.9-3.2); Lymphocytes Percent Auto 27.5 % (18.3-44.2); Mean Corpuscular HGB Conc 31.1 g/dl (32-36); Mean Corpuscular Hemoglobin 25.3 pg (26-34); Mean Corpuscular Volume 81.2 fl (80-100); Mean Platelet Volume 10.6 fl (7.4-10.4); Monocytes Absolute Auto 0.3 K/mm3 (0.1-0.6); Monocytes Percent Auto 4.6 % (2.6-8.5); Neutrophils Absolute Auto 4.3 K/mm3 (1.3-6.7); Neutrophils Percent Auto 63.8 % (45.5-73.1); Platelet Count Result 338 k/mm3 (150-375); Red Blood Count 4.79 M/mm3 (4.2-5.4); Red Cell Distribution Width 15.2 % (11.5-14.5); White Blood Count 6.7 K/mm3 (4.5-10.0)
[2021-10-27 00:14] LABS: Alanine Aminotransferase 16 U/L (4-35); Albumin Level 4.2 g/dL (3.5-5.1); Alkaline Phosphatase 108 U/L (38-126); Anion Gap 9 mmol/L (8-16); Aspartate Amino Transferase 24 U/L (14-36); Bilirubin,Total 0.4 mg/dL (0.2-1.3); Blood Urea Nitrogen 21 mg/dL (7-17); Calcium 9.7 mg/dL (8.4-10.2); Carbon Dioxide 27 mmol/L (22-30); Chloride 102 mmol/L (98-107); Estimated Glomerular Filt Rate > 60; Glucose 185 mg/dL (65-110); Lipase 101 U/L (23-300); Potassium 4.4 mmol/L (3.4-5.0); Sodium 138 mmol/L (137-145)
[2021-10-27 01:24] VITALS: BP 154/81; PULSE 98; RESP 20; O2SAT 100
[2021-10-27 03:04] VITALS: PULSE 100; RESP 24
[2021-10-27 03:43] VITALS: BP 181/104; PULSE 101; RESP 22; O2SAT 100
--- NOTE | 2021-10-27 03:44 | PC.NURSE ---
EDP notified of pts elevated BP. No new orders, okayed for transfer.
[2021-10-27 03:48] VITALS: BP 167/99
== END 2021-10-27 04:12 | disposition short-term general hospital (02) ==
PROVIDERS: Emergency Provider Emergency Medicine
DX: Z43.4 Encounter for attention to other artificial openings of digestive tract (principal); J44.9 Chronic obstructive pulmonary disease, unspecified; E78.00 Pure hypercholesterolemia, unspecified; I10 Essential (primary) hypertension; F32.A Depression, unspecified; F17.210 Nicotine dependence, cigarettes, uncomplicated; Z86.73 Personal history of transient ischemic attack (TIA), and cerebral infarction without residual deficits; Z79.82 Long term (current) use of aspirin; K80.20 Calculus of gallbladder without cholecystitis without obstruction
CPT/HCPCS: 36415; 74177; 80053; 83690; 85025; 99285; Q9967

== ENCOUNTER 2021-12-09 09:30 | Outpatient (CLI) | payer MEDICARE, SELFPAY ==
--- NOTE | ~2021-12-09 | XR_ITS ---
EXAMINATION: XR barium swallow modified DATE: 12/09/2021 10:38 INDICATION: Dysphagia TECHNIQUE: Modified barium esophagram was performed by myself to administered fluoroscopy, in conjun ction with speech pathologist who administered barium in varying consistencies as per speech patholog ist documentation. This was recorded on tape. A single fluoroscopic spot image was recorded. The DAP for this procedure was 1.8 Gycm2. Fluoroscopy exposure time was 3.7 minutes. FINDINGS: Oral stage: Decreased lingual movement with premature spill, leakage from a mild, in addition opacifi cation, and tongue pumping. Pharyngeal phase: Reduced laryngeal elevation. Laryngeal penetration: Intermittent. Aspiration: Intermittent. Laryngeal sensitivity: Absent. IMPRESSION: Abnormal modified barium swallow. Please refer to speech pathologist findings and specifi c feeding recommendations. Reviewed, dictated and finalized at [facility]. IMPRESSION: Abnormal modified barium swallow. Please refer to speech pathologis t findings and specific feeding recommendations.
--- NOTE | 2021-12-10 14:46 | STOPEVAL ---
MODIFIED BARIUM SWALLOW EVALUATION: Thank you for referring Marilyn Ram to [facility].? Attending Provider: Ирина Watts Evaluation Information Problem Diagnosis Dysphagia Onset 11/22/20 Cause CVA with dysphagia & aphasia Additional Evaluation Detail G-tube feedings for all nutrition and hydration Subjective Information Pt was nonverbal during Query Text:As Reported By Patient/ evaluation Family Diagnostic Tests X-Rays For This Problem Yes: previous MBS 06/17/21 Previous Treatments Previous Treatments For This Problem ST Therapy has been provided at [facility] and previous hospitals Prior Level of Function Prior Swallow Level Prior Intake Method PEG Tube Prior Cognition/Communication Prior Communication Level Severe Impairment,Aphasia Prior Cognitive Function Dependent Pain Assessment Timing of Pain Assessment Timing of Pain Assessment Assessment Pain Scale Pain Scale Used FLACC FLACC Face No Particular Expression or Smile Legs Normal Position or Relaxed Activity Lying Quietly, Normal Position , Moves Easily Cry No Cry (Awake or Asleep) Consolability Content, Relaxed Pain Score Pain Score 0: FLACC Modified Barium Swallow Evaluation Recent Swallowing History Reports Dysphagia Pt was nonverbal History of Related Medical Diagnosis CVA Consistency Mildly Thick 5 mL Method of Presentation Spoon Oral Preparatory Symptoms Within Functional Limits Oral Phase Symptoms Within Functional Limits Pharyngeal Phase Symptoms Within Functional Limits Severity of Vallecular Residue None - 0% No Residue Severity of Pyriform Sinus Residue None - 0% No Residue 8 Point Laryngeal Penetration-Aspiration Material Does Not Enter Airway Scale Cervical/Esophageal Symptoms Within Functional Limits Moderately Thick 5 mL Method of Presentation Spoon Oral Preparatory Symptoms Within Functional Limits Oral Phase Symptoms Within Functional Limits, Lingual Pumping Pharyngeal Phase Symptoms Within Functional Limits Severity of Vallecular Residue None - 0% No Residue Severity of Pyriform Sinus Residue None - 0% No Residue 8 Point Laryngeal Penetration-Aspiration Material Does Not Enter Airway Scale Cervical/Esophageal Symptoms Within Functional Limits Solid Consistency Other Amount bite size piece tested Method of Presentation Spoon Oral Preparatory Symptoms Unable to Form Bolus Oral Phase Symptoms Disturbed Lingual Movement, Li
== END 2021-12-09 09:31 | disposition home or self-care (01) ==
DX: R13.10 Dysphagia, unspecified (principal)
CPT/HCPCS: 92611

== ENCOUNTER 2023-01-23 17:52 | Inpatient (IN) | payer MEDICARE, MEDICAID, SELFPAY ==
[2023-01-23] VITALS (7 sets, daily range): BP systolic 105–161; BP diastolic 58–108; PULSE 82–101; RESP 12–16; TEMP 36.4–37; O2SAT 95–100; BMI 17.4
--- NOTE | ~2023-01-23 | XR_ITS ---
Portable chest x-ray Comparison: 05/05/2021 Clinical History: Fistula Findings: Lungs are clear, without focal consolidation or pleural effusion. Cardiomediastinal silho uette is stable. Bones and soft tissues are unremarkable. Impression: Clear lungs Reviewed, dictated and finalized at location . Impression: Clear lungs
--- NOTE | ~2023-01-23 | CT_ITS ---
CT of the Abdomen and Pelvis: Indication: Abdominal pain, abscess Technique: 2.5 mm axial scans were obtained through the abdomen and pelvis following intravenous adm inistration of 100 cc of Omnipaque 350. Dose reduction technique was used on this scan by utilizing a utomated exposure control and iterative reconstruction technique. The dose-length product (DLP) was 3 52.96 mGy-cm. COMPARISON: 10/27/2021 Findings: Scans through the lung bases are unremarkable. Multiple gallstones are present. There is probable pericholecystic inflammatory change. There is a 4. 3 x 1.5 x 3.2 cm peripherally enhancing fluid collection consistent with abscess in the right upper q uadrant abdominal wall (axial image 72 for example). There is a tract extending superficially from th e abscess, as well as deep to the abscess towards the gallbladder. The liver, spleen, pancreas, adrenals and kidneys are within normal limits. There are atherosclerotic calcifications of the aorta. No lymphadenopathy. No bowel obstruction or bowel wall thickening. There is no evidence to suggest acute appendicitis. Images through the pelvis were performed. Numerous small urinary bladder stones are present. Multiple uterine fibroids are present. No ascites. Impression: 4.3 x 1.5 x 3.2 cm right upper quadrant abdominal wall abscess, as detailed above. There is apparent tract extending superficially from the abscess to the skin, as well as extending deep, to the gallbla dder. Active communication with the gallbladder is not excluded. Correlate for prior cholecystostomy given the apparent tract appearance. Multiple gallstones. Mild pericholecystic inflammatory change. Correlate for acute and/or chronic cho lecystitis. Numerous small urinary bladder stones/debris. Multiple uterine fibroids. Reviewed, dictated and finalized at location M. Impression: 4.3 x 1.5 x 3.2 cm right upper quadrant abdominal wall abscess, as detailed abo ve. There is apparent tract extending superficially from the abscess to the ski n, as well as extending deep, to the gallbladder. Active communication with the gallbladder is not excluded. Correlate for prior cholecystostomy given the cesia arent tract appearance. Multiple gallstones. Mild pericholecystic inflammatory change. Correlate for ac sokaogon and/or chronic cholecystitis. Numerous small urinary bladder stones/debris. Multiple uterine fibroids.
--- NOTE | 2023-01-23 18:20 | ED.GENADULT ---
HPI - General Adult General Chief complaint: Skin/Abscess/Foreign Body Stated complaint: abd wound Time Seen by Provider: 01/23/23 17:57 History of Present Illness HPI narrative: This is a 62-year-old nonverbal [place] [facility] patient presenting with abdominal abscess. Present [place] the [place] [facility] after they noticed she had a draining abscess in the right side of her belly. Patient is nonverbal and can provide no useful information during the interview. Related Data Home Medications Medication Instructions Recorded Confirmed albuterol 90 mcg/actuation aerosol 108 mcg inhalation DAILY 01/16/21 05/06/21 inhaler aspirin 81 mg chewable tablet 81 mg feeding tube DAILY 01/16/21 05/06/21 atorvastatin 80 mg tablet 80 mg PO HS 01/16/21 05/06/21 cholecalciferol (vitamin D3) 25 25 mcg feeding tube DAILY 01/16/21 05/06/21 mcg (1,000 unit) capsule famotidine 20 mg tablet 20 mg feeding tube BID 01/16/21 05/06/21 fluoxetine 20 mg capsule 20 mg feeding tube BID 01/16/21 05/06/21 hydrocodone 5 mg-acetaminophen 325 1 tablet feeding tube BID PRN Pain 01/16/21 05/06/21 mg tablet loratadine 10 mg capsule 10 mg feeding tube DAILY 01/16/21 05/06/21 losartan 100 mg tablet 100 mg feeding tube DAILY 01/16/21 05/06/21 diclofenac sodium 1 % topical gel 4 g topical DAILY 05/06/21 05/06/21 miconazole nitrate 2 % topical 1 applic topical BID 05/06/21 05/06/21 powder ondansetron HCl 4 mg tablet 4 mg PO Q8H PRN Constipation 05/06/21 05/06/21 (Zofran) Allergies Allergy/AdvReac Type Severity Reaction Status Date / Time No Known Allergies Allergy Verified 10/26/21 23:19 [facility] Past Medical History Medical History Cholecystostomy tube dysfunction Coffee ground emesis COPD (chronic obstructive pulmonary disease) Depression Esophagitis G tube feedings High cholesterol Hypertension Stroke Tobacco abuse Surgical History Surgical History History of ankle surgery Family History Family History Other Cancer Cerebrovascular accident Diabetes mellitus Heart disease Hypertension Social History Social History Social History: The patient is . She has 2 sons. The patient tells me that she is going to go live with her son when she is out of the [place] [facility]. The patient is disabled. The patient still continues to smoke less than a pack a cigarettes a day. She denies any alcohol or illicit drugs. She is listed as a full code. Smoking packs per day: 0.5 Smoking cigarettes per day: 10.0 Smoking status: Current every day smoker Tobacco type: cigarettes Alcohol intake: unknown Substance use: unknown Substance use type: does not use Living arrangements: [place] [facility] Additional occupation/education comments: disabled Gender identity (if verbalized by the patient): Female Spiritual care concerns: No Exam Narrative: APPEARANCE: Patient is nonverbal Head: atraumatic. EYES: EOMI, NOSE: Atraumatic NECK: Trachea midline RESPIRATORY: No increased rate of breathing CARDIOVASCULAR: RRR, ABDOMINAL: and a right-sided patient's abdomen she has a pustule that is draining purulent bloody fluid. Minimal amount of surrounding erythema. G-tube in place MUSCULOSKELETAl: No obvious deformities NEURO: alert but nonverbal SKIN:: Warm, dry. Normal color PSYCHIATRIC: nonverbal Course Vital Signs Vital signs: Vital Signs Temperature 97.5 F L 01/23/23 17:55 Pulse Rate 94 01/23/23 17:55 Respiratory Rate 12 01/23/23 17:55 Blood Pressure 142/81 H 01/23/23 17:55 Pulse Oximetry 98 01/23/23 17:55 Oxygen Delivery Room Air 01/23/23 17:55 Temperature 98.6 F 01/23/23 19:10 Pulse Rate 99 01/23/23 21:59 Respiratory Rate 14 01/23/23 21
[2023-01-23 19:05] LABS: Basophils Absolute Auto 0.1 K/mm3 (0.0-0.1); Basophils Percent Auto 0.7 % (0.2-1.2); Eosinophils Absolute Auto 0.4 K/mm3 (0-0.3); Eosinophils Percent Auto 5.9 % (0-4.4); Hematocrit 37.8 % (37.0-47.0); Hemoglobin 11.7 g/dL (12.0-15.0); Immature Granulocyte Absolute 0.02 K/mm3 (0.00-0.031); Immature Granulocyte Percent A 0.3 % (0-0.5); Lymphocytes Absolute Auto 2.54 K/mm3 (0.9-3.2); Mean Corpuscular Hemoglobin 25.3 pg (26-34); Mean Corpuscular Volume 81.6 fl (80-100); Mean Platelet Volume 10.5 fl (7.4-10.4); Monocytes Absolute Auto 0.5 K/mm3 (0.1-0.6); Monocytes Percent Auto 7.2 % (2.6-8.5); Neutrophils Absolute Auto 3.9 K/mm3 (1.3-6.7); Neutrophils Percent Auto 51.9 % (45.5-73.1); Platelet Count Result 391 k/mm3 (150-375); Red Blood Count 4.63 M/mm3 (4.2-5.4); Red Cell Distribution Width 14.6 % (11.5-14.5); White Blood Count 7.5 K/mm3 (4.5-10.0)
[2023-01-23 20:08] LABS: Anion Gap 8 mmol/L (8-16); Blood Urea Nitrogen 21 mg/dL (7-17); Calcium 9.4 mg/dL (8.4-10.2); Carbon Dioxide 27 mmol/L (22-30); Chloride 103 mmol/L (98-107); Estimated Glomerular Filt Rate > 60; Glucose 101 mg/dL (65-110); Potassium 4.6 mmol/L (3.4-5.0); Sodium 138 mmol/L (137-145)
--- NOTE | 2023-01-23 21:06 | ECG_ITS ---
Measurements Intervals [place] Rate: 92 P: 58 MD: 136 QRS: 49 QRSD: 83 T: 62 QT: 382 QTc: 474 Interpretive Statements SINUS RHYTHM NORMAL ECG NO PREVIOUS ECG AVAILABLE FOR COMPARISON Electronically Signed On 01-24-2023 8:28:57 CDT by Anup Grubbs M.D.
[2023-01-23 21:47] LABS: Alanine Aminotransferase 31 U/L (6-35); Alkaline Phosphatase 157 U/L (38-126); Aspartate Amino Transferase 30 U/L (14-36); Bilirubin,Total 0.3 mg/dL (0.2-1.3); Magnesium 2.1 mg/dL (1.6-2.3)
[2023-01-23] MEDS: SODIUM CHLORIDE 0.9% IV 1,000 ML 999 ML IV CONT ×2 (21:51→22:11)
[2023-01-23 22:04] LABS: Appearance Urine Turbid (Clear); Bacteria Urine 4+ /hpf; Bilirubin Urine Negative (Negative); Blood Urine Negative (Negative); Color Urine Yellow (Yellow); Glucose Urine UA Negative (Negative); Ketones Urine Negative (Negative); Leukocyte Esterase Ur Negative LEU/UL (Negative); Nitrate Urine Negative (Negative); Protein Urine Trace mg/dL (Negative); Squamous Epithelial Cell Urine Occasional /hpf (Few); WBC Urine 0-5 /hpf; pH Urine 7.5 (5.0-9.0)
[2023-01-23 22:07] LABS: Specific Grav Ur 1.057 (1.001-1.035)
[2023-01-23 22:08] LABS: Add Urine Microscopic? YES
[2023-01-23] MEDS: PIPERACILLN/TAZ 3.375GM/NS50ML 3.375 GM/50 ML BAG IVPB (22:08)
[2023-01-23 22:16] LABS: Lactic Acid Reflex 1.4 mmol/L (0.7-2.0)
[2023-01-23 22:31] LABS: Influenza A QL RT-PCR Negative (Negative); Influenza B QL RT-PCR Negative (Negative); RSV RNA, RT-PCR Negative (Negative); SARS-CoV-2 RNA PCR Negative (Negative)
--- NOTE | 2023-01-23 23:50 | PM.IMHP ---
H&P: HPI History of Present Illness Date/Time: 01/23/23 23:50 Chief Complaint: Draining wound on the right upper abdomen Narrative: 62-year-old female with past medical history of CVA, intercranial hemorrhage, right hemiplegia, dysphagia, chronic cholecystitis status post cholecystostomy drain 12/2020 and chronic G-tube who presented to the ER from [facility] via EMS due to draining wound in the right upper abdomen. The patient had cholecystostomy drain placed 01/20/2021 due to acute on chronic cholecystitis. The patient was transferred at that time to tertiary care for evaluation by hepatobiliary team. I am assuming that date is treated the patient conservatively. She then returned to the hospital in May after cholecystotomy tube fell out. At that time she was discovered to have an abdominal wall abscess with associated coli cutaneous fistula. She had recurrent percutaneous tube placed during that hospital stay. He was treated for acute cholecystitis versus chronic cholecystitis. She was discharged back to the custodial. It is not clear when the patient's cholecystostomy tube was removed. The patient is unable to help provide with any information. Nursing staff reported that the patient was tracking them around the room but was nonverbal. At the time my evaluation the patient was sleeping with snoring respirations and would respond to painful stimuli but would not wake up long enough to attempt any history process. On exam the patient was noted to have area of erythema and induration at the site of prior tube placement. She had obvious pain with palpation of the area. Contrast CT of the abdomen pelvis in the ER demonstrated 4.3 x 1.5 x 3.2 cm right upper quadrant abdominal wall abscess with apparent tract extending superficially from the abscess to skin as well as a area extending deep to the gallbladder. Active communication with gallbladder was not excluded. Multiple gallstones with mild pericolonic inflammatory changes concerning for acute or chronic cholecystitis and numerous small urinary bladder stones/debris and multiple uterine fibroids. Patient was started on empiric antibiotic therapy in the ER and general surgery was consulted. Patient does not have any leukocytosis and is afebrile. The time of my evaluation the dressing was removed and patient has small amount of pale yellow drainage on the gauze. Nursing staff reported that drainage from the area was almost continuous and thin appearance they were concerned that could have been consistent with bile. But at the time my evaluation area and a small amount of dried thick white material that when was removed underlying tissue was slightly bloody. I could not express any material or fluid from the area of concern but seemed to cause the patient great pain with palpation of the area. The patient was recently started on Bactrim on the . It is unclear if this was started due to urinary symptoms or patient's the noted area of erythema to the abdominal wall. Review of Systems Review of Systems: ROS unobtainable: Yes unobtainable due to mental status PMFSH Past Medical History Medical History (Updated 01/24/23 @ 07:28 by Indu Ontiveros DO) Cholecystostomy tube dysfunction COPD (chronic obstructive pulmonary disease) Depression G tube feedings Hiatal hernia High cholesterol Hypertension Reflux esophagitis Stroke With intercranial hemorrhage Tobacco abuse Surgical History Surgical History (Updated 01/24/23 @ 07:15 by Indu Ontiveros DO) History of ankle surgery History of esophagogastroduodenoscopy (EGD) (05/2021) Hiatal hernia and reflux esophagitis History of gastrostomy tube placement Family History Family History Other Cancer Cerebrovascular accident Diabetes mellitus Heart disease Hypertension Social History Social History (Updated 01/24/23 @ 07:20 by Mary
[2023-01-24] VITALS (11 sets, daily range): BP systolic 101–155; BP diastolic 63–80; PULSE 81–103; RESP 12–20; TEMP 36.4–36.9; O2SAT 97–100
[2023-01-24] MEDS: SODIUM CHLORIDE 0.9% IV 1,000 ML 80 ML IV CONT ×2 (04:11→16:37)
[2023-01-24] MEDS: PIPERACILLN/TAZ 3.375GM/NS50ML 3.375 GM/50 ML BAG IVPB ×4 (04:12→23:04)
[2023-01-24 06:15] LABS: Glucose Point of Care 105 mg/dl (65-105)
[2023-01-24 08:06] LABS: Basophils Percent Auto 0.5 % (0.2-1.2); Eosinophils Absolute Auto 0.4 K/mm3 (0-0.3); Eosinophils Percent Auto 6.7 % (0-4.4); Hematocrit 32.1 % (37.0-47.0); Hemoglobin 9.7 g/dL (12.0-15.0); Immature Granulocyte Absolute 0.01 K/mm3 (0.00-0.031); Immature Granulocyte Percent A 0.2 % (0-0.5); Lymphocytes Absolute Auto 1.85 K/mm3 (0.9-3.2); Lymphocytes Percent Auto 28.7 % (18.3-44.2); Mean Corpuscular HGB Conc 30.2 g/dl (32-36); Mean Corpuscular Hemoglobin 25.1 pg (26-34); Mean Corpuscular Volume 83.2 fl (80-100); Mean Platelet Volume 10.3 fl (7.4-10.4); Monocytes Absolute Auto 0.5 K/mm3 (0.1-0.6); Neutrophils Absolute Auto 3.7 K/mm3 (1.3-6.7); Neutrophils Percent Auto 56.9 % (45.5-73.1); Platelet Count Result 327 k/mm3 (150-375); Red Blood Count 3.86 M/mm3 (4.2-5.4); Red Cell Distribution Width 14.4 % (11.5-14.5); White Blood Count 6.4 K/mm3 (4.5-10.0)
[2023-01-24 08:13] LABS: Alanine Aminotransferase 26 U/L (6-35); Albumin Level 3.4 g/dL (3.5-5.1); Alkaline Phosphatase 126 U/L (38-126); Anion Gap 6 mmol/L (8-16); Aspartate Amino Transferase 25 U/L (14-36); Bilirubin,Total 0.3 mg/dL (0.2-1.3); Blood Urea Nitrogen 14 mg/dL (7-17); Calcium 8.7 mg/dL (8.4-10.2); Carbon Dioxide 23 mmol/L (22-30); Chloride 109 mmol/L (98-107); Estimated CRCL calculation 81 ml/min; Estimated Glomerular Filt Rate > 60; Glucose 107 mg/dL (65-110); Lipase 87 U/L (23-300); Potassium 4.3 mmol/L (3.4-5.0); Sodium 138 mmol/L (137-145)
--- NOTE | 2023-01-24 10:24 | WPDCN ---
Assessment and Plan Assessment and plan (1) Abdominal wall abscess: Code(s): L02.211 - Cutaneous abscess of abdominal wall Status: Acute Assessment and Plan: Patient has a right upper quadrant abdominal wall subcutaneous abscess. He will need to be drained in the operating room today under IV sedation. There is a question as to whether this is related to a possible cholecysto cutaneous fistula. Will explore the abdominal under to surgery it is see if this is the case. (2) Chronic cholecystitis with calculus: Code(s): K80.10 - Calculus of gallbladder with chronic cholecystitis without obstruction Status: Acute Assessment and Plan: Patient has chronic cholecystitis secondary to cholelithiasis. Her previous stroke makes her higher risk for surgery. I had previously seen her for this problem and after an episode of acute cholecystitis a cholecystostomy tube was placed to drain the gallbladder. She was then lost to follow-up as an outpatient and apparently the cholecystostomy tube has been taken out at some point. After the acute infection of the abdominal wall is resolved we can address whether she would be an appropriate candidate for a cholecystectomy either laparoscopic or open approach. HPI Data of Consult Date/Time: 01/24/23 10:24 Requesting Physician: Debbie Davis PA-C Primary Care Provider: Monalisa Balderas Consult Narrative Reason for consult: Right abdominal wall abscess Narrative: Marilyn Ram is a 62 year old female who was admitted [facility] with a draining infected area right lateral chest wall. I am somewhat familiar with her from see her previously at [facility] when she was evaluated for chronic cholecystitis. She eventually developed an episode of acute cholecystitis and had a cholecystostomy tube placed to drain the gallbladder. She subsequently lost to follow-up and apparently the cholecystostomy tube was removed at some point. That has been open over a year ago. When she presented to the emergency room here at [facility] appears that the area infection is at the site of the previous cholecystostomy tube. CT scan shows close approximation of the wall of the gallbladder to the abscess in the abdominal wall and there is question as to whether there is a cholecysto cutaneous fistula. There is no bile during out of the abscess cavity. She is not septic. She has had a previous stroke which has left her with an expressive aphasia but she understands every thing and can nod yes and no to appropriate questions and answers. She is afebrile. White blood cell count is normal at 9700. Review of Systems Review of Systems: The remainder of the review of systems to include constitutional, HEENT, cardiovascular, respiratory, GI, , integumentary, musculoskeletal, endocrine, immunologic, hematologic, psychiatric, and neurologic are all negative except for which is mentioned above in the HPI. [facility] Past Medical History Medical History Cholecystostomy tube dysfunction COPD (chronic obstructive pulmonary disease) Depression G tube feedings Hiatal hernia High cholesterol Hypertension Reflux esophagitis Stroke With intercranial hemorrhage Tobacco abuse Surgical History Surgical History History of ankle surgery History of esophagogastroduodenoscopy (EGD) (05/2021) Hiatal hernia and reflux esophagitis History of gastrostomy tube placement Family History Family History Other Cancer Cerebrovascular accident Diabetes mellitus Heart disease Hypertension Social History Social History Social History: The patient is . She has 2 sons. The patient is disabled. The patient still continues to smoke less than a pack a cigarettes
--- NOTE | 2023-01-24 12:14 | PC.NURSE ---
Attempt made to contact diallo Grant to obtain consent for the scheduled procedure today. Unable to leave a voicemail.
--- NOTE | 2023-01-24 12:20 | WPDANESEPP ---
Anes - Eval Pre Procedure Procedure: Incision and Drainage Abdominal Wall Abcess Date/Time: 01/24/23 12:20 Surgeon: Dilshad Pre Op Diagnosis: Abdominal Wall Abscess Patient Data Age: 62 Gender: F Height: 1.73 m Weight: 52 kg Last Vital Signs Temp 97.8 F 01/24/23 04:10 Pulse 95 01/24/23 04:10 Resp 16 01/24/23 04:10 BP 101/80 01/24/23 04:10 Pulse Ox 98 01/24/23 04:10 O2 Del Method Room Air 01/24/23 08:30 Allergies Allergy/AdvReac Type Severity Reaction Status Date / Time No Known Allergies Allergy Verified 10/26/21 23:19 Home Medications Medication Instructions Recorded Confirmed Type aspirin 81 mg chewable tablet 81 mg feeding tube DAILY 01/16/21 01/23/23 History atorvastatin 80 mg tablet 80 mg feeding tube HS 01/16/21 01/23/23 History cholecalciferol (vitamin D3) 25 25 mcg feeding tube DAILY 01/16/21 01/23/23 History mcg (1,000 unit) capsule famotidine 20 mg tablet 20 mg feeding tube BID 01/16/21 01/23/23 History loratadine 10 mg capsule 10 mg feeding tube DAILY 01/16/21 01/23/23 History ondansetron HCl 4 mg tablet 4 mg feeding tube Q8H PRN Nausea 05/06/21 01/24/23 History (Zofran) And Vomiting Bactrim DS 800 mg feeding tube BID 01/23/23 01/23/23 History Milk of Magnesia 30 ml feeding tube HS PRN 01/23/23 01/23/23 History Constipation Ventolin HFA 2 puff inhalation PRN PRN Wheezing 01/23/23 01/23/23 History Voltaren Arthritis Pain 1 appful topical DAILY 01/23/23 01/23/23 History acetaminophen 650 mg feeding tube Q4H PRN Pain 01/23/23 01/23/23 History (Scale Score 1-3)/fever ascorbic acid (vitamin C) 500 mg 500 mg feeding tube DAILY 01/23/23 01/23/23 History tablet (Vitamin C) carvedilol 6.25 mg tablet 6.25 mg feeding tube BID 01/23/23 01/23/23 History ferrous sulfate 220 mg (44 mg 330 mg feeding tube BID 01/23/23 01/23/23 History iron)/5 mL oral elixir lisinopril 1 mg/mL oral solution 5 mg feeding tube DAILY 01/23/23 01/23/23 History magnesium citrate 300 ml feeding tube DAILY PRN 01/23/23 01/23/23 History Constipation sertraline 20 mg/mL oral 100 mg feeding tube DAILY 01/23/23 01/23/23 History concentrate Laboratory Tests 01/23/23 01/23/23 01/23/23 19:00 19:46 21:45 WBC 7.5 K/mm3 (4.5-10.0) RBC 4.63 M/mm3 (4.2-5.4) Hgb 11.7 L g/dL (12.0-15.0) Hct 37.8 % (37.0-47.0) MCV 81.6 fl (80-100) MCH 25.3 L pg (26-34) MCHC 31.0 L g/dl (32-36) RDW 14.6 H % (11.5-14.5) Plt Count 391 H k/mm3 (150-375) MPV 10.5 H fl (7.4-10.4) Immature Gran % (Auto) 0.3 % (0-0.5) Neut % (Auto) 51.9 % (45.5-73.1) Lymph % (Auto) 34.0 % (18.3-44.2) [facility] % (Auto) 7.2 % (2.6-8.5) Eos % (Auto) 5.9 H % (0-4.4) Baso % (Auto) 0.7 % (0.2-1.2) Lymph # (Auto) 2.54 K/mm3 (0.9-3.2) [facility] # (Auto) 0.5 K/mm3 (0.1-0.6) Eos # (Auto) 0.4 H K/mm3 (0-0.3) Baso # (Auto) 0.1 K/mm3 (0.0-0.1) Abs Immat Gran (auto) 0.02 K/mm3 (0.00-0.031) Absolute Neuts (auto) 3.9 K/mm3 (1.3-6.7) Absolute Nucleated RBC 0.0 K/mm3 (0.0-0.012) Nucleated RBC % 0.0 % (0.0-0.2) Sodium 138 mmol/L (137-145) Potassium 4.6 mmol/L (3.4-5.0) Chloride 103 mmol/L (98-107) Carbon Dioxide 27 mmol/L (22-30) Anion Gap 8 mmol/L (8-16) BUN 21 H mg/dL (7-17) Creatinine 0.50 L mg/dL (0.7-1.0) Estim Creat Clear Calc Not Reportable Estimated GFR > 60 (59 - ) Glucose 101 mg/dL (65-110) POC Capillary Glucose Lactic Acid 1.4 mmol/L (0.7-2.0) Calcium 9.4 mg/dL (8.4-10.2) Magnesium 2.1 mg/dL (1.6-2.3) Total Bilirubin 0.3 mg/dL (0.2-1.3) AST 30 U/L (14-36) ALT 31 U/L (6-35)
[2023-01-24 12:22] LABS: Glucose Point of Care 99 mg/dl (65-105)
--- NOTE | 2023-01-24 13:44 | WPDHPUPDATE1 ---
History and Physical Update Update Date/Time: 01/24/23 13:44 History and Physical has been reviewed, including an updated exam of the patient. There are NO changes in the patient's condition. Risks, benefits, and alternatives have been discussed and questions answered. Patient agrees to proceed with procedure.
--- NOTE | 2023-01-24 13:46 | P.PNAN_ITS ---
Anes - Eval Final PreProcedure Day of Procedure 01/24/23 13:46 Patient weight: normal Heart: regular rate and rhythm Lungs: clear to auscultation Airway: Mallampati scale class II Neurological: hemiparesis ASA classification: III Anesthetic plan: proceed Anesthesia type and monitoring: general Results Review: All pre-operative results and documents have been reviewed as part of the pre- operative evaluation. Informed Consent: The patient's anesthetic plan and its attendant risks and benefits were discussed with the patient/family/POA. Questions were solicited and answers provided to the satisfaction of the patient/family/POA.
[2023-01-24] MEDS: LIDO 1%/EPINEPHRINE 1:100,000 50 ML VIAL INFILTRATE (14:22)
[2023-01-24] MEDS: LACTATED RINGERS 1,000 ML 30 ML IV CONT (14:23)
[2023-01-24] MEDS: BUPivacaine HCL 0.5% 10 ML AMP 5 ML INFILTRATE (14:25)
--- NOTE | 2023-01-24 14:37 | W.PM.PROC2 ---
Procedure Note - Detailed Date of Procedure 01/24/23 Pre-op Diagnosis Abdominal Wall Abscess Post-op Diagnosis Same Procedure Performed Incision and drainage of right abdominal wall abscess Surgeon Panchito Yung MD Anesthesia General Indications Patient is a 62-year-old female who for she has had a prior stroke and is aphasic. Has contraction of right leg and right arm. She previously had a history of a acute episode of cholecystitis and had a cholecystostomy tube placed to decompress the gallbladder. She was then lost to follow-up but apparently the cholecystostomy tube was removed at some point. She was admitted to the hospital yesterday with an abscess in the right upper quadrant abdominal wall in the area the old cholecystostomy tube exit site. She presents now for incision drainage of the abscess. Findings Small 2cm abscess in the right upper quadrant abdominal wall. Extends cephalad towards the ribs by another 2cm. No obvious connection to the gallbladder was seen. Scant amount of pus drained and but there was no evidence of any bile drainage. Description of Procedure We were unable to get informed consent from the patient's son who is her [id number] as he was not reachable. Both the hospitalist and myself agreed the patient needed to have an urgent dry incision drainage of this abscess. We signed the consent form and brought the patient to the operating room she underwent a general anesthetic without difficulty. The right chest area was then prepped and draped usual sterile fashion. A time-out was then performed correctly identify the patient as well as procedure to be performed. She was on scheduled IV antibiotics. I then made a transverse incision over the area of maximal fluctuance over the abscess cavity. This released about 1cc of pus. A culture swab was taken of the abscess cavity and sent to microbiology. I then probed the abscess cavity and extended pad towards the ribs for about 2 more cm. It did not seem to go into the abdominal cavity. There is no drainage of any bile fluid. I then irrigated out the abscess cavity copious amounts sterile saline solution hemostasis was then achieved utilizing electrocautery. I then packed the tract and the abscess cavity with quarter-inch iodoform gauze. 4x4 gauze and ABD pad was used for final dressing. The patient tolerated the procedure well no complications. All sponges, needles, and instrument counts were correct at the end procedure. EBL was _ 2 __cc. The patient was awakened and taken to recovery in stable and satisfactory condition. Implants None Estimated Blood Loss 2 Urine Output 300 Drains No Packing Yes (Quarter-inch iodoform gauze an abscess cavity) Pathology Other (Culture swab sent to microbiology) Complications No immediate complications Condition Stable Disposition PACU [facility] Billing Surgery - Charge Forward: Surgery Billing
--- NOTE | 2023-01-24 14:39 | PM.IMPN ---
Progress Note: A&P Assessment and Plan (1) Abdominal wall abscess: Code(s): L02.211 - Cutaneous abscess of abdominal wall Status: Acute Assessment and Plan: Patient presented from nursing facility due to draining abdominal wall abscess. CT of the abdomen/pelvis on presentation showed 4.3 x 1.5 x 3.2 cm right upper quadrant abdominal wall abscess with apparent tract extending superficially from the abscess to the skin as well as extending deep to the gallbladder, active to masood with the gallbladder not excluded Patient has had issues with chronic cholecystitis for approximately 2 years, seems that initial cholecystostomy was placed in December 2020. ER documentation from September 2021 states that patient had cholecystostomy tube placed on 10/19, replaced on 10/22 after traumatic dislodging of the tube. 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 WBC within normal limits, patient remains afebrile. Vital signs stable Blood cultures obtained on presentation, pending Abscess cultures obtained intraoperatively, await results Continue IV Zosyn Continue gentle IV fluids until tube feeding and free water flushes can be resumed (2) Chronic cholecystitis with calculus: Code(s): K80.10 - Calculus of gallbladder with chronic cholecystitis without obstruction Status: Acute Assessment and Plan: See plan above Following resolution of abscess, she will follow-up with General surgery to determine plans for long-term management, consider cholecystectomy if she is an appropriate candidate (3) HTN (hypertension): Qualifiers: Hypertension type: primary hypertension Qualified Code(s): I10 - Essential (primary) hypertension Code(s): I10 - Essential (primary) hypertension Status: Acute Assessment and Plan: Blood pressures are stable. Resume antihypertensives when no longer NPO (4) Reflux esophagitis: Qualifiers: Esophagitis bleeding: without hemorrhage Qualified Code(s): K21.00 - Gastro-esophageal reflux disease with esophagitis, without bleeding Code(s): K21.00 - Gastro-esophageal reflux disease with esophagitis, without bleeding Status: Chronic Assessment and Plan: Continue home famotidine when no longer NPO Plan Resume tube feedings and medications through G-tube when okay with General surgery Subjective Date/time seen: 01/24/23 14:39 Interval history: Date of service: 01/24/2023 Marilyn Ram is a 62-year-old female with history of COPD, hypertension, stroke, G-tube dependent, recent cholecystostomy in September 2022 who is seen in follow-up for abdominal wall abscess. The patient is awake. She is nonverbal and she is unable to provide any history. She does nod her head in response to questions occasionally, but does not appear to understand the questions to which she is nodding her head. Review of Systems Review of Systems: ROS unobtainable: Yes unobtainable due to mental status Exam Narrative: General: Thin, frail chronically ill-appearing 62-year-old female, supine in bed, NARD Neuro: awake, alert, tracks with her eyes, does not provide any verbal responses, unable to follow commands HEENMT: normocephalic, atraumatic, EOMI, sclerae anicteric Respiratory: clear to auscultation anteriorly, nonlabored breathing Cardio: regular rate, regular rhythm with S1-S2 Abdomen: nondistended, soft, G-tube in place, right upper quadrant covered with dressing with serosanguineous discharge, removed to reveal open abdominal wound draining purulent fluid Skin: no rashes or lesions, warm and dry Psych: Judgment and insight poor Objective Data Vital Signs Vital Signs: Vital Signs - 24 hr 01/23/23 17:55 01/23/23 19:10 01/23/23 20:04 Temperature 97.
[2023-01-24 18:05] LABS: Glucose Point of Care 96 mg/dl (65-105)
--- NOTE | 2023-01-24 18:23 | PC.NURSE ---
Addendum entered by Savanna Nuñez RN 01/24/23 19:47: Medications arrived at 1835. Original Note: Evening medications arrived with seal broken on iron solution causing medications to be soiled. Voicemail left x 2 regarding medication replacements. Spoke with pharmacist Kandi at 1800 stating new medications will be sent up. Awaiting medication arrival.
[2023-01-24] MEDS: NYSTATIN 100,000 UNITS/ML SUSP 5 ML ORAL.SUSP FEED TUBE (20:19)
[2023-01-24] MEDS: SULFAMETHOXAZOLE/TRIMETHOPRIM 800/160 MG DS TABLET 1 TAB FEED TUBE (20:20)
[2023-01-25] VITALS (7 sets, daily range): BP systolic 127–141; BP diastolic 60–85; PULSE 72–88; RESP 14–18; TEMP 36.4–36.9; O2SAT 98–100; BMI 17.4
[2023-01-25 00:09] LABS: Glucose Point of Care 89 mg/dl (65-105)
[2023-01-25] MEDS: PIPERACILLN/TAZ 3.375GM/NS50ML 3.375 GM/50 ML BAG IVPB ×4 (05:07→23:56)
[2023-01-25 05:27] LABS: Hematocrit 30.9 % (37.0-47.0); Hemoglobin 9.6 g/dL (12.0-15.0); Mean Corpuscular HGB Conc 31.1 g/dl (32-36); Mean Corpuscular Hemoglobin 25.5 pg (26-34); Mean Corpuscular Volume 82.2 fl (80-100); Mean Platelet Volume 10.9 fl (7.4-10.4); Platelet Count Result 303 k/mm3 (150-375); Red Blood Count 3.76 M/mm3 (4.2-5.4); Red Cell Distribution Width 14.3 % (11.5-14.5); White Blood Count 6.6 K/mm3 (4.5-10.0)
[2023-01-25 05:41] LABS: Anion Gap 8 mmol/L (8-16); Blood Urea Nitrogen 8 mg/dL (7-17); Calcium 8.8 mg/dL (8.4-10.2); Carbon Dioxide 21 mmol/L (22-30); Chloride 108 mmol/L (98-107); Estimated CRCL calculation 81 ml/min; Estimated Glomerular Filt Rate > 60; Glucose 84 mg/dL (65-110); Potassium 4.3 mmol/L (3.4-5.0); Sodium 137 mmol/L (137-145)
[2023-01-25 05:53] LABS: Glucose Point of Care 88 mg/dl (65-105)
[2023-01-25] MEDS: SODIUM CHLORIDE 0.9% IV 1,000 ML 80 ML IV CONT ×2 (05:58→18:21)
[2023-01-25] MEDS: ASPIRIN 81 MG CHEWABLE TABLET FEED TUBE (08:37)
[2023-01-25] MEDS: FAMOTIDINE 20 MG TABLET FEED TUBE ×2 (08:38→20:39)
[2023-01-25] MEDS: SERTRALINE HCL 50 MG TABLET 100 MG FEED TUBE (08:39)
[2023-01-25] MEDS: carvediloL 6.25 MG TABLET FEED TUBE ×2 (08:39→20:39)
[2023-01-25] MEDS: DICLOFENAC SODIUM 1% 100 GM GEL (*BKC) 1 APPLIC TOPICAL (08:40)
[2023-01-25] MEDS: FERROUS SULFATE LIQUID 325 MG/7.4 ML ELIXIR FEED TUBE ×2 (08:40→17:12)
[2023-01-25] MEDS: NYSTATIN 100,000 UNITS/ML SUSP 5 ML ORAL.SUSP FEED TUBE ×4 (08:40→20:39)
--- NOTE | 2023-01-25 09:53 | WPDANESPN ---
Anes - Prog Note Post-Op Date/Time: 01/25/23 09:53 Vital Signs: Last Vital Signs Temp 36.4 C 01/25/23 03:42 Pulse 88 01/25/23 09:09 Resp 14 01/25/23 08:00 BP 127/61 01/25/23 03:42 Pulse Ox 98 01/25/23 09:09 O2 Del Method Room Air 01/25/23 09:09 O2 Flow Rate 8 01/24/23 14:30 Pain Score (VAS): 0 I/O: Intake & Output 01/24/23 01/25/23 01/25/23 23:59 07:59 15:59 Intake Total 1100 1050 Output Total 350 450 Balance 750 600 Laboratory Tests 01/25/23 04:48 01/25/23 04:48 01/24/23 01/24/23 01/25/23 12:09 17:49 00:05 WBC RBC Hgb Hct MCV MCH MCHC RDW Plt Count MPV Sodium Potassium Chloride Carbon Dioxide Anion Gap BUN Creatinine Estim Creat Clear Calc Estimated GFR Glucose POC Capillary Glucose 99 96 89 Calcium 01/25/23 01/25/23 04:48 05:50 WBC 6.6 RBC 3.76 L Hgb 9.6 L Hct 30.9 L MCV 82.2 MCH 25.5 L MCHC 31.1 L RDW 14.3 Plt Count 303 MPV 10.9 H Sodium 137 Potassium 4.3 Chloride 108 H Carbon Dioxide 21 L Anion Gap 8 BUN 8 D Creatinine 0.50 L Estim Creat Clear Calc 81 Estimated GFR > 60 Glucose 84 POC Capillary Glucose 88 Calcium 8.8 Microbiology 01/23/23 21:45 Blood Blood Culture - Preliminary 01/23/23 21:45 Blood Blood Culture - Preliminary Patient Feedback: Patient satisfied with anesthetic care.
[2023-01-25 12:05] LABS: Glucose Point of Care 83 mg/dl (65-105)
[2023-01-25] MEDS: LORATADINE 10 MG TABLET FEED TUBE (14:51)
[2023-01-25] MEDS: CHOLECALCIFEROL 1,000 UNITS TABLET 1000 UNITS FEED TUBE (14:51)
[2023-01-25] MEDS: ASCORBIC ACID 500 MG TABLET FEED TUBE (14:51)
[2023-01-25] MEDS: SULFAMETHOXAZOLE/TRIMETHOPRIM 800/160 MG DS TABLET 1 TAB FEED TUBE ×2 (14:51→17:12)
[2023-01-25] MEDS: lisinopriL 5 MG TABLET FEED TUBE (14:51)
--- NOTE | 2023-01-25 15:52 | PM.IMPN ---
Progress Note: A&P Assessment and Plan (1) Abdominal wall abscess: Code(s): L02.211 - Cutaneous abscess of abdominal wall Status: Acute Assessment and Plan: Patient presented from nursing facility due to draining abdominal wall abscess. CT of the abdomen/pelvis on presentation showed 4.3 x 1.5 x 3.2 cm right upper quadrant abdominal wall abscess with apparent tract extending superficially from the abscess to the skin as well as extending deep to the gallbladder, active communication with the gallbladder not excluded Patient has had issues with chronic cholecystitis for approximately 2 years, seems that initial cholecystostomy was placed in December 2020. ER documentation from September 2021 states that patient had cholecystostomy tube placed on 10/19, replaced on 10/22 after traumatic dislodging of the tube. 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 WBC within normal limits, patient remains afebrile. Vital signs stable Blood cultures obtained on presentation, negative to date Abscess cultures obtained intraoperatively, await results Continue IV Zosyn and Bactrim through G-tube while awaiting culture results (2) Chronic cholecystitis with calculus: Code(s): K80.10 - Calculus of gallbladder with chronic cholecystitis without obstruction Status: Acute Assessment and Plan: See plan above Following resolution of abscess, she will follow-up with General surgery to determine plans for long-term management, consider cholecystectomy if she is an appropriate candidate (3) Enterococcus UTI: Code(s): N39.0 - Urinary tract infection, site not specified; B95.2 - Enterococcus as the cause of diseases classified elsewhere Status: Acute Assessment and Plan: Urine culture with growth of Enterococcus Continue with IV Zosyn at this time Monitor final cultures and susceptibility report (4) History of gastrostomy tube placement: Status: Acute Assessment and Plan: Patient with G-tube in place Tube feedings resumed Appreciate dietitian consultation 01/24 patient noted by RN to have dark/black material in the G-tube. Evaluated by my supervising physician Fungal cultures obtained Continue nystatin per feeding tube No evidence of discoloration or fungal material on my exam today (5) HTN (hypertension): Qualifiers: Hypertension type: primary hypertension Qualified Code(s): I10 - Essential (primary) hypertension Code(s): I10 - Essential (primary) hypertension Status: Acute Assessment and Plan: Blood pressures are stable. Continue antihypertensives (6) Reflux esophagitis: Qualifiers: Esophagitis bleeding: without hemorrhage Qualified Code(s): K21.00 - Gastro-esophageal reflux disease with esophagitis, without bleeding Code(s): K21.00 - Gastro-esophageal reflux disease with esophagitis, without bleeding Status: Chronic Assessment and Plan: Continue home famotidine Subjective Date/time seen: 01/25/23 15:52 Interval history: Date of service: 01/25/2023 Marilyn Ram is a 62-year-old female with history of COPD, hypertension, stroke, G-tube dependent, chronic cholecystitis s/p cholecystostomy who is seen in follow-up for abdominal wall abscess. She is s/p incision and drainage of right abdominal wall abscess. She tolerated the procedure well. The patient is awake. She is nonverbal and she is unable to provide any history. Review of Systems Review of Systems: ROS unobtainable: Yes unobtainable due to mental status Exam Narrative: General: Thin, frail chronically ill-appearing 62-year-old female, supine in bed, NARD Neuro: awake, alert, tracks with her eyes, does not provide any verbal responses HEENMT: rocio
[2023-01-25 17:18] LABS: Glucose Point of Care 82 mg/dl (65-105)
[2023-01-25] MEDS: ATORVASTATIN 40 MG TABLET 80 MG FEED TUBE (20:39)
[2023-01-26] MEDS: DEXTROSE 50% 25 GM/50 ML SYRINGE IV PUSH (00:07)
[2023-01-26 00:32] LABS: Glucose Point of Care 161 mg/dl (65-105)
[2023-01-26 00:32] LABS: Glucose Point of Care 68 mg/dl (65-105)
[2023-01-26 04:57] VITALS: BP 111/62; PULSE 66; RESP 16; TEMP 36.8; O2SAT 91
[2023-01-26] MEDS: PIPERACILLN/TAZ 3.375GM/NS50ML 3.375 GM/50 ML BAG IVPB ×3 (05:04→17:40)
[2023-01-26 05:43] LABS: Hematocrit 30.8 % (37.0-47.0); Hemoglobin 9.4 g/dL (12.0-15.0); Mean Corpuscular HGB Conc 30.5 g/dl (32-36); Mean Corpuscular Hemoglobin 25.1 pg (26-34); Mean Corpuscular Volume 82.1 fl (80-100); Mean Platelet Volume 10.4 fl (7.4-10.4); Platelet Count Result 350 k/mm3 (150-375); Red Blood Count 3.75 M/mm3 (4.2-5.4); Red Cell Distribution Width 14.3 % (11.5-14.5); White Blood Count 7.6 K/mm3 (4.5-10.0)
[2023-01-26 05:51] LABS: Anion Gap 6 mmol/L (8-16); Blood Urea Nitrogen 11 mg/dL (7-17); Calcium 8.3 mg/dL (8.4-10.2); Carbon Dioxide 22 mmol/L (22-30); Chloride 110 mmol/L (98-107); Estimated CRCL calculation 69 ml/min; Estimated Glomerular Filt Rate > 60; Glucose 86 mg/dL (65-110); Sodium 138 mmol/L (137-145)
[2023-01-26 07:06] LABS: Glucose Point of Care 77 mg/dl (65-105)
--- NOTE | 2023-01-26 09:27 | PM.PNGS ---
Progress Note: A&P Assessment and Plan (1) Abscess of abdominal wall: Code(s): L02.211 - Cutaneous abscess of abdominal wall Status: Acute Assessment and Plan: Abscess has been drained. There is no obvious evidence of a cholecystic cutaneous fistula. There was no bile draining from the wound. Culture results are still pending. Continue antibiotics and can likely be narrow antibiotic coverage in switch to oral antibiotics once culture results are available. Continues supportive management for now. Subjective Subjective Date/Time Seen: 01/26/23 09:27 Post Op day: 3 ( status post incision drainage of right abdominal abscess) Interval history: Patient remains clinically stable. No fever. She was given bolus tube feeds through her PEG tube. She is having bowel movements. White blood cell count is normal. Culture results of the abscess cavity are still pending. She continues on IV antibiotics. Exam GI: Other: Abdomen is soft and nondistended. PEG-tube in place without any leaking around the PEG tube. Right upper quadrant abdominal wall abscess cavity Still has some mild induration but no redness. Packing is removed and the underlying tissue is viable without any drainage. No bile drainage. Objective Data Vital Signs Vital Signs: Vital Signs - 24 hr 01/25/23 14:48 01/25/23 20:24 01/25/23 20:39 Temperature 36.6 C 36.9 C Pulse Rate 72 85 85 Respiratory Rate 18 16 Blood Pressure 141/85 H 139/60 Pulse Oximetry 100 100 01/26/23 04:57 Temperature 36.8 C Pulse Rate 66 Respiratory Rate 16 Blood Pressure 111/62 Pulse Oximetry 91 Intake/Output Intake/Output: Intake & Output 01/23/23 01/24/23 01/25/23 01/26/23 23:59 23:59 23:59 23:59 Intake Total 2050 1300 2150 100 Output Total 950 1550 200 Balance 2050 350 600 -100 Meds/Results Medications: Active Medications Generic Name Dose Route Start Last Admin Trade Name Freq PRN Reason Stop Dose Admin Acetaminophen 650 mg 01/24/23 07:15 Acetaminophen Elixir 325 Mg/10.15 Ml Udc FEED TUBE Q4H PRN Pain (Scale Score 1-3)/fever Albuterol 2 puff 01/24/23 15:16 Albuterol Sulfate (*Sp) Aerosol 1 Puff INHALATION PRN PRN Wheezing Ascorbic Acid 500 mg 01/25/23 09:00 01/25/23 14:51 Ascorbic Acid 500 Mg Tablet FEED TUBE 500 mg DAILY SANDRA Administration Aspirin 81 mg 01/24/23 09:00 01/25/23 08:37 Aspirin 81 Mg Chewable Tablet FEED TUBE 81 mg DAILY SANDRA Administration Atorvastatin Calcium 80 mg 01/24/23 21:00 01/25/23 20:39 Atorvastatin 40 Mg Tablet FEED TUBE 80 mg HS SANDRA Administration Carvedilol 6.25 mg 01/24/23 09:00 01/25/23 20:39 Carvedilol 6.25 Mg Tablet FEED TUBE 6.25 mg Q12HR SANDRA Administration Dextrose 12.5 gm 01/26/23 00:00 01/26/23 00:07 Dextrose 50% 25 Gm/50 Ml Syringe IV PUSH 12.5 gm PRN PRN Administration Hypoglycemia Protocol Diclofenac Sodium 1 applic 01/24/23 09:00 01/25/23 08:40 Diclofenac Sodium 1% 100 Gm Gel (*Bkc) TOPICAL 02/23/23 08:59 1 applic DAILY SANDRA Administration Famotidine 20 mg 01/24/23 09:00 01/25/23 20:39 Famotidine 20 Mg Tablet FEED TUBE 20 mg Q12HR SANDRA Administration Ferrous Sulfate 325 mg 01/24/23 17:00 01/25/23 17:12 Ferrous Sulfate Liquid 325 Mg/7.4 Ml Elixir FEED TUBE 325 mg BID SANDRA Administration Glucagon 1 mg 01/26/23 00:00 Glucagon For Inj 1 Mg Vial IM PRN PRN Hypoglycemia Protocol Glucose 15 gm 01/26/23 00:00 Glucose Oral Gel 15 Gm Of Glucse In 37.5 Gm Tube PO PRN PRN Hypoglycemia Protocol Piperacillin/Tazobactam/Dextrose 3.375 gm in 50 mls @ 100 mls/hr 01/24/23 05:00 01/26/23 05:34 Zosyn 3.375 Gm/Ns 50 Ml IVPB Infused Q6HR SANDRA Infusion Dextrose 1,000 mls @ 100 mls/hr 01/26/23 00:00 Dextrose 5% 1,000 Ml IVPB PRN PRN Hypoglycemia Protocol Lisinopril 5 mg 01/25/23 09:00
[2023-01-26 09:31] VITALS: PULSE 77
[2023-01-26] MEDS: ASCORBIC ACID 500 MG TABLET FEED TUBE (09:31)
[2023-01-26] MEDS: ASPIRIN 81 MG CHEWABLE TABLET FEED TUBE (09:31)
[2023-01-26] MEDS: carvediloL 6.25 MG TABLET FEED TUBE ×2 (09:31→22:16)
[2023-01-26] MEDS: DICLOFENAC SODIUM 1% 100 GM GEL (*BKC) 1 APPLIC TOPICAL (09:32)
[2023-01-26] MEDS: FAMOTIDINE 20 MG TABLET FEED TUBE ×2 (09:32→22:16)
[2023-01-26] MEDS: CHOLECALCIFEROL 1,000 UNITS TABLET 1000 UNITS FEED TUBE (09:32)
[2023-01-26] MEDS: SERTRALINE HCL 50 MG TABLET 100 MG FEED TUBE (09:33)
[2023-01-26] MEDS: LORATADINE 10 MG TABLET FEED TUBE (09:33)
[2023-01-26] MEDS: SULFAMETHOXAZOLE/TRIMETHOPRIM 800/160 MG DS TABLET 1 TAB FEED TUBE ×2 (09:33→17:37)
[2023-01-26] MEDS: FERROUS SULFATE LIQUID 325 MG/7.4 ML ELIXIR FEED TUBE ×2 (09:33→17:37)
[2023-01-26] MEDS: NYSTATIN 100,000 UNITS/ML SUSP 5 ML ORAL.SUSP FEED TUBE ×4 (09:33→22:16)
[2023-01-26] MEDS: lisinopriL 5 MG TABLET FEED TUBE (09:33)
[2023-01-26] MEDS: ACETAMINOPHEN ELIXIR 325 MG/10.15 ML UDC 650 MG FEED TUBE (11:32)
--- NOTE | 2023-01-26 12:11 | PCNFU ---
Nutrition Follow-Up Complete: Inadequate energy intake related to NPO status as evidenced by need for full tube feeding. Goal: Tolerate tube feeding at goal rate Maintain weight during admission Pt current nutrition is Two BAIRON HN 250 ml bolus QID. Last recorded weight is 52 kg. Bowel Motility:+BM reported 01/26 Labs Reviewed:Cr 0.6,Hct 30.8,Hgb 9.4 Meds Noted: Vit D, Zoloft, Coreg Skin:WNL Additional Notes: Patient remains on tube feedings of Two BAIRON HN 250 ml bolus QID with 150 ml water flush before and after feedings. Tube feedings providing 2000 kcals/84 gms protein/700 ml water. Tube feedings are being tolerated per nursing. Agree with diet orders. Monitoring tolerance, weights, labs, plan of care Follow up Tuesdays and Fridays per policy
[2023-01-26 12:26] LABS: Glucose Point of Care 213 mg/dl (65-105)
--- NOTE | 2023-01-26 13:24 | PM.IMPN ---
Progress Note: A&P Assessment and Plan (1) Abdominal wall abscess: Code(s): L02.211 - Cutaneous abscess of abdominal wall Status: Acute Assessment and Plan: Patient presented from nursing facility due to draining abdominal wall abscess. CT of the abdomen/pelvis on presentation showed 4.3 x 1.5 x 3.2 cm right upper quadrant abdominal wall abscess with apparent tract extending superficially from the abscess to the skin as well as extending deep to the gallbladder, active communication with the gallbladder not excluded Patient has had issues with chronic cholecystitis for approximately 2 years, seems that initial cholecystostomy was placed in December 2020. ER documentation from September 2021 states that patient had cholecystostomy tube placed on 10/19, replaced on 10/22 after traumatic dislodging of the tube. 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 WBC within normal limits, patient remains afebrile. Vital signs stable Blood cultures obtained on presentation, negative to date Abscess cultures obtained intraoperatively, awaiting results. Continue IV Zosyn and Bactrim through G-tube while awaiting culture results and tailor antibiotics accordingly (2) Chronic cholecystitis with calculus: Code(s): K80.10 - Calculus of gallbladder with chronic cholecystitis without obstruction Status: Acute Assessment and Plan: See plan above Following resolution of abscess, she will follow-up with General surgery to determine plans for long-term management, consider cholecystectomy if she is an appropriate candidate (3) Enterococcus UTI: Code(s): N39.0 - Urinary tract infection, site not specified; B95.2 - Enterococcus as the cause of diseases classified elsewhere Status: Acute Assessment and Plan: Urine culture with growth of Enterococcus Continue with IV Zosyn at this time which provides sufficient coverage while awaiting abscess cultures and tailoring antibiotics (4) History of gastrostomy tube placement: Status: Acute Assessment and Plan: Patient with G-tube in place Tube feedings resumed Appreciate dietitian consultation 01/24 patient noted by RN to have dark/black material in the G-tube. Evaluated by my supervising physician Fungal cultures obtained, pending at this time Continue nystatin per feeding tube No evidence of discoloration or fungal material on subsequent exams (5) HTN (hypertension): Qualifiers: Hypertension type: primary hypertension Qualified Code(s): I10 - Essential (primary) hypertension Code(s): I10 - Essential (primary) hypertension Status: Acute Assessment and Plan: Blood pressures are stable. Continue antihypertensives (6) Reflux esophagitis: Qualifiers: Esophagitis bleeding: without hemorrhage Qualified Code(s): K21.00 - Gastro-esophageal reflux disease with esophagitis, without bleeding Code(s): K21.00 - Gastro-esophageal reflux disease with esophagitis, without bleeding Status: Chronic Assessment and Plan: Continue home famotidine Subjective Date/time seen: 01/26/23 13:24 Interval history: Date of service: 01/26/2023 Marilyn Ram is a 62-year-old female with history of COPD, hypertension, stroke, G-tube dependent, chronic cholecystitis s/p cholecystostomy who is seen in follow-up for abdominal wall abscess. She is s/p incision and drainage of right abdominal wall abscess. She tolerated the procedure well. The patient is awake. She is nonverbal and she is unable to provide any history. Review of Systems Review of Systems: ROS unobtainable: Yes unobtainable due to mental status Exam Narrative: General: Thin, frail chronically ill-appearing 62-year-old female, supine in bed
[2023-01-26] MEDS: HYDROcodone/acetaminophen (*CRX) 5-325 MG TABLET 1 TAB FEED TUBE (13:30)
[2023-01-26 14:52] VITALS: BP 113/58; PULSE 81; RESP 20; TEMP 36.9; O2SAT 97
[2023-01-26 19:00] LABS: Glucose Point of Care 146 mg/dl (65-105)
[2023-01-26 19:52] VITALS: BP 136/72; PULSE 88; RESP 16; TEMP 36.5; O2SAT 97
[2023-01-26 22:00] VITALS: PULSE 88; O2SAT 97
[2023-01-26] MEDS: ATORVASTATIN 40 MG TABLET 80 MG FEED TUBE (22:15)
[2023-01-26 22:16] VITALS: PULSE 88
[2023-01-27] MEDS: PIPERACILLN/TAZ 3.375GM/NS50ML 3.375 GM/50 ML BAG IVPB ×3 (00:29→12:17)
[2023-01-27 00:35] LABS: Glucose Point of Care 182 mg/dl (65-105)
[2023-01-27 05:44] LABS: Hematocrit 33.3 % (37.0-47.0); Hemoglobin 10.2 g/dL (12.0-15.0); Mean Corpuscular HGB Conc 30.6 g/dl (32-36); Mean Corpuscular Hemoglobin 25.2 pg (26-34); Mean Corpuscular Volume 82.4 fl (80-100); Mean Platelet Volume 10.7 fl (7.4-10.4); Platelet Count Result 365 k/mm3 (150-375); Red Blood Count 4.04 M/mm3 (4.2-5.4); Red Cell Distribution Width 14.4 % (11.5-14.5); White Blood Count 9.5 K/mm3 (4.5-10.0)
[2023-01-27 05:54] LABS: Anion Gap 5 mmol/L (8-16); Blood Urea Nitrogen 13 mg/dL (7-17); Calcium 8.6 mg/dL (8.4-10.2); Carbon Dioxide 22 mmol/L (22-30); Chloride 111 mmol/L (98-107); Estimated CRCL calculation 81 ml/min; Estimated Glomerular Filt Rate > 60; Glucose 97 mg/dL (65-110); Potassium 4.7 mmol/L (3.4-5.0); Sodium 138 mmol/L (137-145)
[2023-01-27 06:20] VITALS: BP 104/60; PULSE 60; RESP 14; TEMP 36.8; O2SAT 94
[2023-01-27 06:37] LABS: Glucose Point of Care 105 mg/dl (65-105)
[2023-01-27 08:54] VITALS: O2SAT 96
[2023-01-27 09:41] VITALS: PULSE 70
[2023-01-27] MEDS: carvediloL 6.25 MG TABLET FEED TUBE (09:41)
[2023-01-27] MEDS: CHOLECALCIFEROL 1,000 UNITS TABLET 1000 UNITS FEED TUBE (09:41)
[2023-01-27] MEDS: DICLOFENAC SODIUM 1% 100 GM GEL (*BKC) 1 APPLIC TOPICAL (09:41)
[2023-01-27] MEDS: ASPIRIN 81 MG CHEWABLE TABLET FEED TUBE (09:41)
[2023-01-27] MEDS: ASCORBIC ACID 500 MG TABLET FEED TUBE (09:41)
[2023-01-27] MEDS: SULFAMETHOXAZOLE/TRIMETHOPRIM 800/160 MG DS TABLET 1 TAB FEED TUBE (09:42)
[2023-01-27] MEDS: lisinopriL 5 MG TABLET FEED TUBE (09:42)
[2023-01-27] MEDS: SERTRALINE HCL 50 MG TABLET 100 MG FEED TUBE (09:42)
[2023-01-27] MEDS: NYSTATIN 100,000 UNITS/ML SUSP 5 ML ORAL.SUSP FEED TUBE ×2 (09:42→12:17)
[2023-01-27] MEDS: LORATADINE 10 MG TABLET FEED TUBE (09:42)
[2023-01-27] MEDS: FERROUS SULFATE LIQUID 325 MG/7.4 ML ELIXIR FEED TUBE (09:42)
[2023-01-27] MEDS: FAMOTIDINE 20 MG TABLET FEED TUBE (09:42)
--- NOTE | 2023-01-27 10:39 | PM.PNGS ---
Progress Note: A&P Assessment and Plan (1) Abdominal wall abscess: Code(s): L02.211 - Cutaneous abscess of abdominal wall Status: Acute Assessment and Plan: Right upper quadrant abdominal abscess has been drained. Likely the wound is improved. Cultures are still pending but preliminary results are negative. She is on Zosyn for Enterococcus UTI which probably will cover the abdominal abscess plus she has MRSA. Appears point she can likely be discharged on oral antibiotic with follow-up my office for the wound. The culture results come back with MRSA then we can switch her to an appropriate oral antibiotic at the detention. Subjective Subjective Date/Time Seen: 01/27/23 10:39 Interval history: Doing well after incision and drainage of right upper quadrant abdominal abscess. No fever chills. White blood cell count is normal. Preliminary results on aerobic anaerobic cultures the abscess cavity are negative so far. Exam GI: Other: Right upper quadrant abscess cavity was some serous drainage but decreased erythema and induration. No residual fluctuance or necrotic tissue. Objective Data Vital Signs Vital Signs: Vital Signs - 24 hr 01/26/23 14:52 01/26/23 19:52 01/26/23 22:16 Temperature 36.9 C 36.5 C Pulse Rate 81 88 88 Respiratory Rate 20 16 Blood Pressure 113/58 L 136/72 Pulse Oximetry 97 97 Oxygen Delivery Fraction of Inspired Oxygen 01/26/23 22:00 01/26/23 22:00 01/27/23 06:20 Temperature 36.8 C Pulse Rate 88 60 Respiratory Rate 14 Blood Pressure 104/60 Pulse Oximetry 97 94 Oxygen Delivery Room Air Room Air Fraction of Inspired Oxygen 21 01/27/23 08:54 01/27/23 09:41 01/27/23 08:00 Temperature Pulse Rate 70 Respiratory Rate Blood Pressure Pulse Oximetry 96 Oxygen Delivery Room Air Room Air Fraction of Inspired Oxygen Intake/Output Intake/Output: Intake & Output 01/24/23 01/25/23 01/26/23 01/27/23 23:59 23:59 23:59 23:59 Intake Total 1300 2150 2300 100 Output Total 950 1550 300 Balance 371 053 1472 100 Meds/Results Medications: Active Medications Generic Name Dose Route Start Last Admin Trade Name Freq PRN Reason Stop Dose Admin Acetaminophen 650 mg 01/24/23 07:15 01/26/23 11:32 Acetaminophen Elixir 325 Mg/10.15 Ml Udc FEED TUBE 650 mg Q4H PRN Administration Pain (Scale Score 1-3)/fever Hydrocodone Bitart/Acetaminophen 1 tab 01/26/23 13:16 01/26/23 13:30 Hydrocodone/Acetaminophen (*Crx) 5-325 Mg Tablet FEED TUBE 1 tab Q6H PRN Administration Pain Rated 4-6 Albuterol 2 puff 01/24/23 15:16 Albuterol Sulfate (*Sp) Aerosol 1 Puff INHALATION PRN PRN Wheezing Ascorbic Acid 500 mg 01/25/23 09:00 01/27/23 09:41 Ascorbic Acid 500 Mg Tablet FEED TUBE 500 mg DAILY SANDRA Administration Aspirin 81 mg 01/24/23 09:00 01/27/23 09:41 Aspirin 81 Mg Chewable Tablet FEED TUBE 81 mg DAILY SANDRA Administration Atorvastatin Calcium 80 mg 01/24/23 21:00 01/26/23 22:15 Atorvastatin 40 Mg Tablet FEED TUBE 80 mg HS SANDRA Administration Carvedilol 6.25 mg 01/24/23 09:00 01/27/23 09:41 Carvedilol 6.25 Mg Tablet FEED TUBE 6.25 mg Q12HR SANDRA Administration Dextrose 12.5 gm 01/26/23 00:00 01/26/23 00:07 Dextrose 50% 25 Gm/50 Ml Syringe IV PUSH 12.5 gm PRN PRN Administration Hypoglycemia Protocol Diclofenac Sodium 1 applic 01/24/23 09:00 01/27/23 09:41 Diclofenac Sodium 1% 100 Gm Gel (*Bkc) TOPICAL 02/23/23 08:59 1 applic DAILY SANDRA Administration Famotidine 20 mg 01/24/23 09:00 01/27/23 09:42 Famotidine 20 Mg Tablet FEED TUBE 20 mg Q12HR SANDRA Administration Ferrous Sulfate 325 mg 01/24/23 17:00 01/27/23 09:42 Ferrous Sulfate Liquid 325 Mg/7.4 Ml Elixir FEED TUBE 325 mg BID SANDRA Administration Glucagon 1 mg 01/26/23 00:00 Glucagon For Inj 1 Mg Vial IM PRN PRN Hypoglycemia Protoco
--- NOTE | 2023-01-27 10:41 | PM.IMPN ---
Progress Note: A&P Assessment and Plan (1) Abdominal wall abscess: Code(s): L02.211 - Cutaneous abscess of abdominal wall Status: Acute Assessment and Plan: Drainage per general surgery 01/24 and intraoperative cultures are pending. Abdominal examination this am without guarding or acute discomfort. - Appreciate general surgery management - Continue with supportive care - Stable labs and afebrile on current abx. Await culture results to narrow therapy. Cont. zosyn, bactrim. - Negative blood cx. (2) Chronic cholecystitis with calculus: Code(s): K80.10 - Calculus of gallbladder with chronic cholecystitis without obstruction Status: Acute Assessment and Plan: - Following resolution of abscess, she will follow-up with General surgery to determine plans for long-term management, consider cholecystectomy if she is an appropriate candidate. (3) Enterococcus UTI: Code(s): N39.0 - Urinary tract infection, site not specified; B95.2 - Enterococcus as the cause of diseases classified elsewhere Status: Acute Assessment and Plan: Enterococcus on cx - currently on zosyn which is sensitive, deescalate as possible pending additional cultures from the abscess. (4) History of gastrostomy tube placement: Status: Acute Assessment and Plan: G tube in place with TF ongoing, refused am d/t nausea last night. Will retry later this morning. - Fungal culture pending and on nystatin per tube. Await cx results, dc nystatin if negative. Tube feedings resumed (5) HTN (hypertension): Qualifiers: Hypertension type: primary hypertension Qualified Code(s): I10 - Essential (primary) hypertension Code(s): I10 - Essential (primary) hypertension Status: Acute Assessment and Plan: Blood pressures are stable. Continue antihypertensives (6) Reflux esophagitis: Qualifiers: Esophagitis bleeding: without hemorrhage Qualified Code(s): K21.00 - Gastro-esophageal reflux disease with esophagitis, without bleeding Code(s): K21.00 - Gastro-esophageal reflux disease with esophagitis, without bleeding Status: Chronic Assessment and Plan: Stable. Continue home famotidine Time Spent With Patient Time with patient: 15 - 25 minutes Subjective Date/time seen: 01/27/23 10:41 Interval history: [facility] with abdominal wall abscess, question of communication to gallbladder. Consultation with general surgery and 01/24/23 abscess was drained of the right abdominal wall. No findings of biliary communication. Intraoperative cultures are pending. No acute events overnight per nursing. This am patient does not want am feeding d/t some nausea with the last feeding. Review of Systems Review of Systems: ROS unobtainable: Yes unobtainable due to mental status Exam Narrative: GENERAL APPEARANCE: Appears to be in no acute distress. HEAD: normocephalic atraumatic ENT: no nasal discharge NECK: Neck supple, trachea midline. CARDIAC: Normal S1/S2. Rhythm is regular. No murmurs, rubs, or gallops. No cyanosis or pallor. Extremities are warm and well perfused. LUNGS: Clear to auscultation without rales, rhonchi, wheezing or diminished breath sounds. Respirations even and unlabored. ABDOMEN: BS positive x 4 quadrants. Soft, nondistended, nontender. G tube site without purulent drainage. PERIPHERAL VASCULAR: Peripheral pulses palpable. Normal perfusion, cap refill <2 seconds. No edema. NEURO: Does not follow commands, rouses easily. PSYCH: FAIZA Objective Data Vital Signs Vital Signs: Vital Signs - 24 hr 01/26/23 14:52 01/26/23 19:52 01/26/23 22:16 Temperature 98.5 F 97.7 F Pulse Rate 81 88 88 Respiratory Rate 20 16 Blood Pressure 113/58 L 136/72 Pulse Oximetry 97 97 Oxygen Delivery Fraction of Inspired Oxygen 01/26/23 22:00 01/26/23 22:00 01/27/23 06:20 Temperature
--- NOTE | 2023-01-27 11:08 | PM.DS ---
DS: Admitting Diagnosis Discharge Date 01/27/23 Admitting Diagnosis abdominal wall abscess, htn, GERD, chronic cholecystitis without obstruction DS: Discharge Diagnosis Discharge Diagnosis (1) Enterococcus UTI: Code(s): N39.0 - Urinary tract infection, site not specified; B95.2 - Enterococcus as the cause of diseases classified elsewhere Status: Acute Assessment and Plan: Complete abx course with augmentin. (2) History of gastrostomy tube placement: Status: Acute Assessment and Plan: Question of fungal infection at site - complete nystatin. (3) Chronic cholecystitis with calculus: Code(s): K80.10 - Calculus of gallbladder with chronic cholecystitis without obstruction Status: Acute Assessment and Plan: Further f/u as an outpatient with general surgery to consider cholecystectomy. (4) Reflux esophagitis: Qualifiers: Esophagitis bleeding: without hemorrhage Qualified Code(s): K21.00 - Gastro-esophageal reflux disease with esophagitis, without bleeding Code(s): K21.00 - Gastro-esophageal reflux disease with esophagitis, without bleeding Status: Chronic Assessment and Plan: Cont. home famotidine. (5) Abdominal wall abscess: Code(s): L02.211 - Cutaneous abscess of abdominal wall Status: Acute Assessment and Plan: Manged with I/D - cont. bactrim and augmentin. Culture are pending. F/U outpatient with general surgery. (6) HTN (hypertension): Qualifiers: Hypertension type: primary hypertension Qualified Code(s): I10 - Essential (primary) hypertension Code(s): I10 - Essential (primary) hypertension Status: Acute Assessment and Plan: Cont. home medications, stable. DS: Summary Hospital Course Reason for hospitalization: Abdominal wall abscess Hospital Course: Patient presented with a draining wound of the right upper abdomen with findings of a right upper abdominal abscess. She was started on zosyn and then surgically managed with I/D on 01/24 which was tolerated well. The patient has had stable labwork and physical examination ongoing since then. She has a normal wbc count and is afebrile. Culture results are pending but will be followed by general surgery as an outpatient in the office. She will discharge on oral abx with close f/u in the office. Additional hospital problems include a enterococcus UTI which is covered by the discharge abx. On day of discharge the patient is in no distress. She resides in a skilled facility and we will ensure instructions regarding dressing changes and outpatient f/u. Status at Discharge Functional status at discharge: bed bound Overall status at discharge: patient is progressing back to baseline Time Spent with Patient Time attestation: Total time spent providing and/or coordinating discharge services: Time spent: Greater than 30 minutes Specific discharge activities: Abx planning with ID. Care coordination and arranging for wound care. Exam Narrative: GENERAL APPEARANCE: Appears to be in no acute distress. HEAD: normocephalic atraumatic ENT: no nasal discharge NECK: Neck supple, trachea midline. CARDIAC: Normal S1/S2. Rhythm is regular. No murmurs, rubs, or gallops. No cyanosis or pallor. Extremities are warm and well perfused. LUNGS: Clear to auscultation without rales, rhonchi, wheezing or diminished breath sounds. Respirations even and unlabored. ABDOMEN: BS positive x 4 quadrants. Soft, nondistended, nontender. G tube site without purulent drainage. PERIPHERAL VASCULAR: Peripheral pulses palpable. Normal perfusion, cap refill <2 seconds. No edema. NEURO: Does not follow commands, rouses easily. PSYCH: FAIZA DS: Data Data Completed and Pending Pending studies at discharge: WOund cultures are pending. Labs on day of discharge: Labs from last 24 hours 01/27/23 01/27/23 01/27/23 06:31 04:50 00:29 WBC 9.5 RBC 4.04 L Hgb 10.2 L H
[2023-01-27 11:49] LABS: Glucose Point of Care 110 mg/dl (65-105)
[2023-01-27 14:00] VITALS: BP 128/66; PULSE 97; RESP 18; TEMP 36.6; O2SAT 98
[2023-01-27 14:25] LABS: SARS-CoV-2 RNA PCR Negative (Negative)
== END 2023-01-27 14:30 | DRG 857 ==
LOC: ANHED 22:04 → ANH2MED 22:44
PROVIDERS: Physician Assistant; Surgery; Admitting Provider Internal Medicine; Emergency Provider Emergency Medicine; Visit Provider Nurse Practitioner Family
PROC: 0W9F0ZX Drainage of Abdominal Wall, Open Approach, Diagnostic (ICD-10-PCS; principal; 2023-01-24 13:30)
DX: T81.42XA Infection following a procedure, deep incisional surgical site, initial encounter (principal); I69.251 Hemiplegia and hemiparesis following other nontraumatic intracranial hemorrhage affecting right dominant side; L02.211 Cutaneous abscess of abdominal wall; K80.10 Calculus of gallbladder with chronic cholecystitis without obstruction; N39.0 Urinary tract infection, site not specified; I69.220 Aphasia following other nontraumatic intracranial hemorrhage; I10 Essential (primary) hypertension; J44.9 Chronic obstructive pulmonary disease, unspecified; E78.00 Pure hypercholesterolemia, unspecified; R13.10 Dysphagia, unspecified; B95.2 Enterococcus as the cause of diseases classified elsewhere; F17.210 Nicotine dependence, cigarettes, uncomplicated; F32.A Depression, unspecified; Z20.822 Contact with and (suspected) exposure to COVID-19; I69.291 Dysphagia following other nontraumatic intracranial hemorrhage; Z93.1 Gastrostomy status; Z79.82 Long term (current) use of aspirin
CPT/HCPCS: 36415; 71045; 74177; 80048; 80053; 81001; 82247; 82948; 83605; 83690; 83735; 84075; 84450; 84460; 85025; 85027; 87040; 87070; 87075; 87086; 87102; 87147; 87181; 87186; 87205; 87206; 87635; 87637; 93005; 99285; A9270; J2543; J2704; J3010; J7030; J7120; Q9967

== ENCOUNTER 2023-11-04 02:34 | Emergency (ER) | payer MEDICARE, MEDICAID, SELFPAY ==
--- NOTE | ~2023-11-04 | XR_ITS ---
Supine and upright views of the abdomen Clinical history: G-tube placement Findings: G tube is in satisfactory position, with contrast opacifying the gastric lumen and proximal small bowel. No abnormal extravasation of contrast. Bowel gas pattern is nonspecific. No evidence fo r obstruction or free air. No abnormal mass lesion or calcification is seen. Osseous structures are i ntact. Impression: G-tube in satisfactory position. Reviewed, dictated and finalized at location M. Impression: G-tube in satisfactory position.
[2023-11-04 02:36] VITALS: BP 116/76; PULSE 75; RESP 16; TEMP 36.4; O2SAT 99
--- NOTE | 2023-11-04 03:41 | ED.GENADULT ---
HPI - General Adult General Chief complaint: Unspecified Stated complaint: g tube displacement Time Seen by Provider: 11/04/23 03:24 History of Present Illness HPI narrative: Patient is a 63-year-old female who presents to the emergency department this morning from her extended care facility due to G-tube dislodgement. Patient pulled out her G-tube. [facility] states that the G-tube has been out for at least 6 hours as they were trying to call the company to come and replace it but they were unsuccessful. Patient has a history of dementia and is nonverbal but is resting comfortably and does not appear to be in any distress. Related Data Home Medications Medication Instructions Recorded Confirmed aspirin 81 mg chewable tablet 81 mg feeding tube DAILY 01/16/21 01/23/23 atorvastatin 80 mg tablet 80 mg feeding tube HS 01/16/21 01/23/23 cholecalciferol (vitamin D3) 25 25 mcg feeding tube DAILY 01/16/21 01/23/23 mcg (1,000 unit) capsule famotidine 20 mg tablet 20 mg feeding tube BID 01/16/21 01/23/23 loratadine 10 mg capsule 10 mg feeding tube DAILY 01/16/21 01/23/23 ondansetron HCl 4 mg tablet 4 mg feeding tube Q8H PRN Nausea 05/06/21 01/24/23 (Zofran) And Vomiting Milk of Magnesia 30 ml feeding tube HS PRN 01/23/23 01/23/23 Constipation Ventolin HFA 2 puff inhalation PRN PRN Wheezing 01/23/23 01/23/23 Voltaren Arthritis Pain 1 appful topical DAILY 01/23/23 01/23/23 acetaminophen 650 mg feeding tube Q4H PRN Pain 01/23/23 01/23/23 (Scale Score 1-3)/fever ascorbic acid (vitamin C) 500 mg 500 mg feeding tube DAILY 01/23/23 01/23/23 tablet (Vitamin C) carvedilol 6.25 mg tablet 6.25 mg feeding tube BID 01/23/23 01/23/23 ferrous sulfate 220 mg (44 mg 330 mg feeding tube BID 01/23/23 01/23/23 iron)/5 mL oral elixir lisinopril 1 mg/mL oral solution 5 mg feeding tube DAILY 01/23/23 01/23/23 magnesium citrate 300 ml feeding tube DAILY PRN 01/23/23 01/23/23 Constipation sertraline 20 mg/mL oral 100 mg feeding tube DAILY 01/23/23 01/23/23 concentrate Allergies Allergy/AdvReac Type Severity Reaction Status Date / Time No Known Allergies Allergy Verified 10/26/21 23:19 Review of Systems Review of Systems: All systems are reviewed and are negative unless stated otherwise in the HPI. [facility] Past Medical History Medical History Cholecystostomy tube dysfunction COPD (chronic obstructive pulmonary disease) Depression G tube feedings Hiatal hernia High cholesterol Hypertension Reflux esophagitis Stroke With intercranial hemorrhage Tobacco abuse Surgical History Surgical History History of ankle surgery History of esophagogastroduodenoscopy (EGD) (05/2021) Hiatal hernia and reflux esophagitis History of gastrostomy tube placement Family History Family History Other Cancer Cerebrovascular accident Diabetes mellitus Heart disease Hypertension Social History Social History Social History: The patient is . She has 2 sons. The patient is disabled. The patient still continues to smoke less than a pack a cigarettes a day. She denies any alcohol or illicit drugs. Code status: Full code. Healthcare power of field services analyst: Rudy (son) Smoking packs per day: 0.5 Smoking cigarettes per day: 10.0 Smoking status: Former smoker Tobacco type: cigarettes Alcohol intake: unknown Substance use: unknown Substance use type: does not use Living arrangements: [facility] Additional occupation/education comments: disabled Gender identity (if verbalized by the patient): Female Spiritual care concerns: No Exam Narrative: General: Awake, afebrile, in no acute distress. Cardiovascular: Regular rate and rhythm, no murmurs, rubs or gallops,
[2023-11-04 05:10] VITALS: BP 120/70; PULSE 77; RESP 15; O2SAT 97
[2023-11-04 07:14] VITALS: BP 116/72; PULSE 70; RESP 17; O2SAT 98
== END 2023-11-04 06:45 ==
PROVIDERS: Emergency Provider Emergency Medicine
DX: Z43.1 Encounter for attention to gastrostomy (principal); J44.9 Chronic obstructive pulmonary disease, unspecified; I10 Essential (primary) hypertension; E78.00 Pure hypercholesterolemia, unspecified; K21.00 Gastro-esophageal reflux disease with esophagitis, without bleeding; F32.A Depression, unspecified; F17.210 Nicotine dependence, cigarettes, uncomplicated; Z86.73 Personal history of transient ischemic attack (TIA), and cerebral infarction without residual deficits; Z79.82 Long term (current) use of aspirin
CPT/HCPCS: 31238; 43762; 99283

== ENCOUNTER 2023-11-14 23:28 | Emergency (ER) | payer MEDICARE, MEDICAID, SELFPAY ==
--- NOTE | ~2023-11-14 | XR_ITS ---
Supine and upright views of the abdomen Clinical history: G-tube check Findings: G tube appears in satisfactory location, with contrast opacifying the gastric lumen and pro ximal small bowel. No abnormal extravasation of contrast seen. Bowel gas pattern is nonspecific. No e vidence for obstruction or free air. No abnormal mass lesion or calcification is seen. Osseous struct ures are intact. Impression: G tube in satisfactory position, as above. Reviewed, dictated and finalized at location . Impression: G tube in satisfactory position, as above.
[2023-11-14 23:29] VITALS: BP 117/78; PULSE 71; RESP 16; TEMP 36.3; O2SAT 96
--- NOTE | 2023-11-14 23:37 | ED.GENADULT ---
HPI - General Adult General Chief complaint: Unspecified Stated complaint: gtube related Time Seen by Provider: 11/14/23 23:33 Source: EMS Mode of arrival: EMS Limitations: other (Nonverbal) History of Present Illness HPI narrative: 63-year-old female coming from [facility] for concerns that she is refusing G-tube feeds. Just started today. Has a previous stroke. She is nonverbal. When I try to communicate with her, she does not communicate with me at all. Related Data Home Medications Medication Instructions Recorded Confirmed aspirin 81 mg chewable tablet 81 mg feeding tube DAILY 01/16/21 01/23/23 atorvastatin 80 mg tablet 80 mg feeding tube HS 01/16/21 01/23/23 cholecalciferol (vitamin D3) 25 25 mcg feeding tube DAILY 01/16/21 01/23/23 mcg (1,000 unit) capsule famotidine 20 mg tablet 20 mg feeding tube BID 01/16/21 01/23/23 loratadine 10 mg capsule 10 mg feeding tube DAILY 01/16/21 01/23/23 ondansetron HCl 4 mg tablet 4 mg feeding tube Q8H PRN Nausea 05/06/21 01/24/23 (Zofran) And Vomiting Milk of Magnesia 30 ml feeding tube HS PRN 01/23/23 01/23/23 Constipation Ventolin HFA 2 puff inhalation PRN PRN Wheezing 01/23/23 01/23/23 Voltaren Arthritis Pain 1 appful topical DAILY 01/23/23 01/23/23 acetaminophen 650 mg feeding tube Q4H PRN Pain 01/23/23 01/23/23 (Scale Score 1-3)/fever ascorbic acid (vitamin C) 500 mg 500 mg feeding tube DAILY 01/23/23 01/23/23 tablet (Vitamin C) carvedilol 6.25 mg tablet 6.25 mg feeding tube BID 01/23/23 01/23/23 ferrous sulfate 220 mg (44 mg 330 mg feeding tube BID 01/23/23 01/23/23 iron)/5 mL oral elixir lisinopril 1 mg/mL oral solution 5 mg feeding tube DAILY 01/23/23 01/23/23 magnesium citrate 300 ml feeding tube DAILY PRN 01/23/23 01/23/23 Constipation sertraline 20 mg/mL oral 100 mg feeding tube DAILY 01/23/23 01/23/23 concentrate Allergies Allergy/AdvReac Type Severity Reaction Status Date / Time No Known Allergies Allergy Verified 10/26/21 23:19 Review of Systems Review of Systems: ROS unobtainable: Yes other (Nonverbal) [facility] Past Medical History Medical History Cholecystostomy tube dysfunction COPD (chronic obstructive pulmonary disease) Depression G tube feedings Hiatal hernia High cholesterol Hypertension Reflux esophagitis Stroke With intercranial hemorrhage Tobacco abuse Surgical History Surgical History History of ankle surgery History of esophagogastroduodenoscopy (EGD) (05/2021) Hiatal hernia and reflux esophagitis History of gastrostomy tube placement Family History Family History Other Cancer Cerebrovascular accident Diabetes mellitus Heart disease Hypertension Social History Social History Social History: The patient is . She has 2 sons. The patient is disabled. The patient still continues to smoke less than a pack a cigarettes a day. She denies any alcohol or illicit drugs. Code status: Full code. Healthcare power of securities attorney: Rudy (son) Smoking packs per day: 0.5 Smoking cigarettes per day: 10.0 Smoking status: Former smoker Tobacco type: cigarettes Alcohol intake: unknown Substance use: unknown Substance use type: does not use Living arrangements: [facility] Additional occupation/education comments: disabled Gender identity (if verbalized by the patient): Female Spiritual care concerns: No Exam Narrative: Constitutional: Generally well appearing, no acute distress Head: Atraumatic, no deformities. Eyes: Pupils equal, round, and reactive to light. Neck: Supple, no tracheal deviation, no JVD. ENMT: Mucous membranes moist Cardiovascular: S1, S2 auscultated. No murmurs, rubs, or gallops. No S3/S4. Normal Distal pulses. No peripheral ed
[2023-11-14 23:42] VITALS: PULSE 74
[2023-11-15 00:21] VITALS: BP 135/87; PULSE 72; RESP 16; O2SAT 98
[2023-11-15 01:35] VITALS: BP 126/71; PULSE 82; RESP 16; O2SAT 97
== END 2023-11-15 01:55 ==
PROVIDERS: Emergency Provider Emergency Medicine
DX: Z43.1 Encounter for attention to gastrostomy (principal); I10 Essential (primary) hypertension; J44.9 Chronic obstructive pulmonary disease, unspecified; E78.00 Pure hypercholesterolemia, unspecified; K44.9 Diaphragmatic hernia without obstruction or gangrene; K21.9 Gastro-esophageal reflux disease without esophagitis; F32.A Depression, unspecified; Z79.82 Long term (current) use of aspirin
CPT/HCPCS: 99284

== ENCOUNTER 2024-09-11 11:00 | Inpatient (IN) | payer MEDICARE, MEDICAID, SELFPAY ==
[2024-09-11] VITALS (11 sets, daily range): BP systolic 89–114; BP diastolic 57–79; PULSE 60–96; RESP 16–18; TEMP 36.6–36.7; O2SAT 94–100; BMI 16.7
--- NOTE | ~2024-09-11 | CT_ITS ---
EXAMINATION: CT abdomen pelvis w con DATE: 09/11/2024 15:14 INDICATION: Abdominal abscess TECHNIQUE: Computed tomography (CT) of the abdomen and pelvis was performed with 100 mL Omnipaque-350 intravenous contrast. Automated exposure control and iterative reconstruction technique were employe d. The dose-length product was 203.15 mGy-cm. COMPARISON: 01/23/2023 FINDINGS: Persistent mild atelectasis/scarring in the dependent bilateral lower lobes heart size is normal. No pericardial or pleural effusion. Small sliding-type hiatal hernia. Percutaneous gastrostomy tube exte nds into the gastric antrum with bulb at the gastric pylorus. Water-soluble contrast material which w as injected into the gastrostomy tube 3 hours prior has progressed through the small bowel and colon to the rectum without obstruction. Small contrast materials also seen within the normal appendix. Ann er, spleen, pancreas and bilateral adrenal glands are normal. There are bilateral subcentimeter low-a ttenuation renal cysts. There are multiple gallstones along with minimal amount of gas within the decompressed gallbladder. S ubtle enhancement is seen extending along a prior cholecystostomy tube tract which extends to the ski n surface. There is a 4.0 x 2.8 x 0.8 cm peripherally enhancing fluid collection in the superficial a spect of the abdominal wall musculature along the course of the catheter tract which could represent a small abscess or biloma. This is decreased in size from 4.5 x 3.1 x 1.1 cm. Fibroid uterus. Bladder is normal. Bilateral adnexa are unremarkable. No intraperitoneal abscess or f ree intraperitoneal gas or fluid. No pathologically enlarged abdominal or pelvic lymphadenopathy. Mil d lumbar and lower thoracic spondylosis. L2 hemangioma. IMPRESSION: 1. Decrease in size of a now 4.0 x 2.8 x 0.8 cm right upper quadrant anterior abdominal wall abscess versus biloma located along a prior cholecystostomy drainage catheter tract. 2. No acute intra-abdominal/pelvic process. 3. Cholelithiasis with small amount of gas within the gallbladder lumen which could be due to either prior sphincterotomy or passage of gas along the prior drainage catheter tract. 4. Percutaneous gastrostomy tube extends to the gastric antrum with distal bulb at the pylorus. No rich wel obstruction. Reviewed, dictated and finalized at location A. SE COLLECTOR IMPRESSION: 1. Decrease in size of a now 4.0 x 2.8 x 0.8 cm right upper quadrant anterior a bdominal wall abscess versus biloma located along a prior cholecystostomy drain age catheter tract. 2. No acute intra-abdominal/pelvic process. 3. Cholelithiasis with small amount of gas within the gallbladder lumen which c ould be due to either prior sphincterotomy or passage of gas along the prior dr suazo catheter tract. 4. Percutaneous gastrostomy tube extends to the gastric antrum with distal bulb at the pylorus. No bowel obstruction.
--- NOTE | ~2024-09-11 | XR_ITS ---
EXAMINATION: XR abdomen gastric tube rechec DATE: 09/11/2024 12:36 INDICATION: Old G-tube site is leaking fluid TECHNIQUE: 4 supine AP views of the abdomen and pelvis were obtained following injection of water-kunal uble contrast into patient's existing percutaneous gastrostomy tube. COMPARISON: CT dated 01/23/2023 FINDINGS: Injected contrast around the inflated percutaneous gastrostomy tube which is in expected position wit hin the distal body the stomach. Contrast extends into the small bowel as well as reflux of a small a mount of contrast above level of the diaphragm into a small sliding-type hiatal hernia. No extralumin al contrast extravasation. A BB was placed at the reportedly leaking ostomy at the right abdomen. It is remote from the stomach and small bowel projecting lateral to the hepatic shadow and likely repres ents the site of a prior percutaneous abdominal abscess drainage catheter fissure with a colocutaneou s fistula related to earlier cutaneous cholecystostomy tube. Several subtle rim calcified gallstones project slightly lateral to the duodenum. IMPRESSION: 1. Percutaneous gastrostomy tube tip and injected contrast in the stomach with no extraluminal contra st extravasation. 2. Reflux of contrast into a small sliding-type hiatal hernia. 3. BB indicating the reported leaking ostomy which likely represents the tract of a prior percutaneou s abdominal abscess drainage catheter associated with a colocutaneous fistula related to a yet earlie r percutaneous cholecystostomy tube placement. 4. Cholelithiasis. Reviewed, dictated and finalized at location A. OR TANK TENDER IMPRESSION: 1. Percutaneous gastrostomy tube tip and injected contrast in the stomach with no extraluminal contrast extravasation. 2. Reflux of contrast into a small sliding-type hiatal hernia. 3. BB indicating the reported leaking ostomy which likely represents the tract of a prior percutaneous abdominal abscess drainage catheter associated with a c olocutaneous fistula related to a yet earlier percutaneous cholecystostomy tube placement. 4. Cholelithiasis.
--- NOTE | 2024-09-11 11:28 | PC.NURSE ---
times 4 extremities contracted.
--- NOTE | 2024-09-11 11:51 | ED_ITS ---
HPI - General Adult General Chief complaint: Recheck/Abnormal Lab/Rx Stated complaint: feeding tube issues Time Seen by Provider: 09/11/24 11:03 History of Present Illness HPI narrative: 64-year-old female presented emergency department for evaluation for G-tube malfunction. Patient had her G-tube exchanged and residential states that when they feed through the left lateral G-tube that she has draining from her old G- tube site on the right side of her abdomen. the site on her right abdomen is non all G-tube site but it is in fact a prior cholecystostomy drain site that has had previous abscess. Upon arrival emergency department patient is nonverbal but shakes her head to know when asking if she has any pain. Patient had no abdominal tenderness to palpation. Patient does have a dressing in place and does have Suspected purulent discharge from the right-sided ostomy Related Data Home Medications ?Medication ?Instructions ?Recorded ?Confirmed ?Last Taken ?Type aspirin 81 mg chewable tablet 81 mg feeding tube DAILY 01/16/21 09/11/24 Unknown History atorvastatin 80 mg tablet 80 mg feeding tube HS 01/16/21 09/11/24 Unknown History cholecalciferol (vitamin D3) 25 25 mcg feeding tube DAILY 01/16/21 09/11/24 Unknown History mcg (1,000 unit) capsule famotidine 20 mg tablet 20 mg feeding tube BID 01/16/21 09/11/24 Unknown History loratadine 10 mg capsule 10 mg feeding tube DAILY 01/16/21 09/11/24 Unknown History ondansetron HCl 4 mg tablet 4 mg feeding tube Q8H PRN Nausea 05/06/21 09/11/24 Unknown History (Zofran) And Vomiting Ventolin HFA 2 puff inhalation PRN PRN Wheezing 01/23/23 09/11/24 Unknown History Voltaren Arthritis Pain 1 appful topical DAILY 01/23/23 09/11/24 Unknown History acetaminophen 650 mg feeding tube Q4H PRN Pain 01/23/23 09/11/24 Unknown History (Scale Score 1-3)/fever ascorbic acid (vitamin C) 500 mg 500 mg feeding tube DAILY 01/23/23 09/11/24 Unknown History tablet (Vitamin C) carvedilol 6.25 mg tablet 6.25 mg feeding tube BID 01/23/23 09/11/24 Unknown History ferrous sulfate 220 mg (44 mg 330 mg feeding tube BID 01/23/23 09/11/24 Unknown History iron)/5 mL oral elixir lisinopril 1 mg/mL oral solution 5 mg feeding tube DAILY 01/23/23 09/11/24 Unknown History magnesium citrate 300 ml feeding tube DAILY PRN 01/23/23 09/11/24 Unknown History Constipation sertraline 20 mg/mL oral 100 mg feeding tube DAILY 01/23/23 09/11/24 Unknown History concentrate ezetimibe 10 mg tablet mg feeding tube .every bedtime 09/11/24 Unknown History fluoxetine 20 mg/5 mL (4 mg/mL) mg feeding tube 09/11/24 Unknown History oral solution Allergies Allergy/AdvReac Type Severity Reaction Status Date / Time No Known Allergies Allergy Verified 09/11/24 15:34 Review of Systems 2 Review of Systems: All systems reviewed & are unremarkable except as noted in HPI and below PMFSH Past Medical History Medical History Cholecystostomy tube dysfunction COPD (chronic obstructive pulmonary disease) Depression G tube feedings Hiatal hernia High cholesterol Hypertension Reflux esophagitis Stroke With intercranial hemorrhage Tobacco abuse Surgical History Surgical History History of ankle surgery History of esophagogastroduodenoscopy (EGD) (05/2021) Hiatal hernia and reflux esophagitis History of gastrostomy tube placement Family History Family History Other Cancer Cerebrovascular accident Diabetes mellitus Heart disease Hypertension Social History Social History Social History: The patient is . She has 2 sons. The patient is disabled. The patient still continues to smoke less than a pack a cigarettes a day. She denies any alcohol or illicit drugs. Code status: Full code. 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 HEAD: normocephalic, atraumatic. EYES: PERRLA/EOMI, conjunctivae clear. NOSE: Normal no drainage EARS:TMS clear with good light reflex. THROAT: Pharynx clear, no exudate. NECK: Supple. No adenopathy, no masses. RESPIRATORY: Airway patent, respirations nonlabored. Clear to auscultation bilaterally, no rales, rhonchi, wheezing. CARDIOVASCULAR: Regular rate and rhythm without murmurs rubs or gallops. ABDOMINAL: well-appearing G-tube site, purulent Discharge from the whole cholecystostomy site MUSCULOSKELETAL: Moves all extremities. Strength/ROM intact, No edema, No calf tenderness. NEURO: Alert. Cranial nerves II through XII intact. Good gait. Good coordination SKIN: Warm, dry. Normal Color Course Vital Signs Vital signs: Vital Signs Temperature 97.8 F 09/11/24 11:03 Pulse Rate 71 09/11/24 11:03 Respiratory Rate 18 09/11/24 11:03 Blood Pressure 109/61 09/11/24 11:03 Temperature 97.8 F 09/11/24 18:29 Pulse Rate 68 09/11/24 18:29 Respiratory Rate 16 09/11/24 18:29 Blood Pressure 114/79 09/11/24 18:29 Pulse Oximetry 98 09/11/24 18:29 Medical Decision Making [facility] Narrative Medical decision making narrative: 64-year-old female present to the emergency department for evaluation for draining from a right-sided abdominal wall abscess. Patient does have a prior history of a cholecystectomy to with abscess along the previous strain tract. Patient was initially transferred because the residential thought that tube feedings were draining from the site but G-tube but x-ray with G2 water-soluble contrast shows no active extravasation and does show proper placement of the G- tube. CT scan did confirm an abscess along the previous cholecystectomy tract. surgery was consulted. Blood cultures were ordered and patient was started Zosyn. hospitalist was consulted for admission. patient is not tachycardic she is normotensive. Patient is at her normal neuro baseline. Patient is afebrile with no leukocytosis and a stable hemoglobin of 10.3. This is similar to her baseline. Patient has no significant acute abnormalities her CMP. Differential Diagnosis Differential Diagnosis: Gtube malfunction, abdominal abscess Medical Records Medical records reviewed: Yes I reviewed the external patient's medical records. Vital Signs Vital Signs: Vital Signs Temperature 97.8 F 09/11/24 11:03 Pulse Rate 71 09/11/24 11:03 Respiratory Rate 18 09/11/24 11:03 Blood Pressure 109/61 09/11/24 11:03 Temperature 97.8 F 09/11/24 18:29 Pulse Rate 68 09/11/24 18:29 Respiratory Rate 16 09/11/24 18:29 Blood Pressure 114/79 09/11/24 18:29 Pulse Oximetry 98 09/11/24 18:29 Lab Data Lab results reviewed: Yes I reviewed the patient's lab results. 09/11/24 14:17 09/11/24 14:17 Labs: Lab Results 09/11/24 Range/Units 14:17 WBC 7.2 (4.5-10.0) K/mm3 RBC 3.90 L (4.2-5.4) M/mm3 Hgb 10.3 L (12.0-15.0) g/dL Hct 32.1 L (37.0-47.0) % MCV 82.3 (80-100) fl MCH 26.4 (26-34) pg MCHC 32.1 (32-36) g/dl RDW 14.2 (11.5-14.5) % Plt Count 256 (150-375) k/mm3 MPV 11.2 H (7.4-10.4) fl Immature Gran % (Auto) 0.1 (0-0.5) % Neut % (Auto) 62.2 (45.5-73.1) % Lymph % (Auto) 27.3 (18.3-44.2) % [place] % (Auto) 6.8 (2.6-8.5) % Eos % (Auto) 3.2 (0-4.4) % Baso % (Auto) 0.4 (0.2-1.2) % Lymph # (Auto) 1.98 (0.9-3.2) K/mm3 [place] # (Auto) 0.5 (0.1-0.6) K/mm3 Eos # (Auto) 0.2 (0-0.3) K/mm3 Baso # (Auto) 0.0 (0.0-0.1) K/mm3 Abs Immat Gran (auto) 0.01 (0.00-0.031) K/mm3 Absolute Neuts (auto) 4.5 (1.3-6.7) K/mm3 Absolute Nucleated RBC 0.000 (0.0-0.012) K/mm3 Nucleated RBC % 0.0 (0.0-0.2) % % Immature Plt Fraction 4.1 (0.9-11.2) % Sodium 138 (137-145) mmol/L Potassium 4.4 (3.4-5.0) mmol/L Chloride 102 (98-107) mmol/L Carbon Dioxide 27 (22-30) mmol/L Anion Gap 9 (4-12) mmol/L BUN 25 H D (7-17) mg/dL Creatinine 0.43 L (0.7-1.0) mg/dL Estim Creat Clear Calc 84 ml/min Estimated GFR > 60 (59 - ) Glucose 88 (65-110) mg/dL Calcium 9.6 (8.4-10.2) mg/dL Total Bilirubin 0.4 (0.2-1.3) mg/dL AST 23 (14-36) U/L ALT 21 (6-35) U/L Alkaline Phosphatase 128 H (38-126) U/L Total Protein 8.0 (6.3-8.2) g/dL Albumin 4.1 (3.5-5.1) g/dL Imaging Data Radiologist's impression: Impressions Abdomen X-Ray 09/11/24 12:37 IMPRESSION: 1. Percutaneous gastrostomy tube tip and injected contrast in the stomach with no extraluminal contrast extravasation. 2. Reflux of contrast into a small sliding-type hiatal hernia. 3. 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 4. Cholelithiasis. Abdomen/Pelvis CT 09/11/24 15:17 IMPRESSION: 1. Decrease in size of a now 4.0 x 2.8 x 0.8 cm right upper quadrant anterior abdominal wall abscess versus biloma located along a prior cholecystostomy drainage catheter tract. 2. No acute intra-abdominal/pelvic process. 3. Cholelithiasis with small amount of gas within the gallbladder lumen which could be due to either prior sphincterotomy or passage of gas along the prior drainage catheter tract. 4. Percutaneous gastrostomy tube extends to the gastric antrum with distal bulb at the pylorus. No bowel obstruction. Discharge Plan Discharge Clinical Impression: Abdominal wall abscess Patient Disposition: Still a Patient Condition: Stable
--- OUTSIDE RECORDS SUMMARY | 2024-09-11 12:05 | XMS_ITS | Patient Health Summary ---
Author Organization [facility] Address [address] [place] [address] Care Team Providers Care Care Support Representative Name Role Phone Monalisa Balderas MD Primary Care Provider [phone] Note from [facility],non-owned Affiliates and Associated Physician Practices is amultiple site organization consisting of ambulatory clinics and hospital sitesin [place], [place], [place] and [place]. This disclosure is being madepursuant to the Care Everywhere program and may not contain all information available regarding this patient. Last updated 18.[facility] Allergies No known active allergies Medications * Be aware that medications may not be up to date on this document. Alwaysverify current medications with the patient. * albuterol HFA (VENTOLIN HFA) 108 (90 Base) MCG/ACT inhaler Inhale 2 puffs by mouth every 6 hours as needed for Shortness of Breath * atorvastatin (LIPITOR) 80 MG tablet(Started 02/21/2021) 80 mg by Enteral Tube route once daily * Cholecalciferol 25 MCG (1000 UT) 1,000 Units by Enteral route once daily * diclofenac sodium (SOLARAZE) 3 % gel Apply to affected area once daily -- apply to hips * FLUoxetine (PROZAC) 20 MG capsule(Started 02/21/2021) 20 mg by Enteral Tube route 2 times daily * loratadine (CLARITIN) 10 MG tablet 10 mg by Enteral Tube route once daily * miconazole (LOTRIMIN AF) 2 % powder(Started 01/29/2021) Apply to affected area 2 times daily -- apply to perineal region * acetaminophen (TYLENOL) 325 MG tablet Take 650 mg by mouth every 4 hours as needed for Fever or Pain Maximum allowable Acetaminophen amount = 4 Grams (4000 mg) / 24 hours. * ascorbic acid (VITAMIN C) 500 MG tablet 500 mg by Per G Tube route once daily * ferrous sulfate 325 (65 FE) MG tablet 325 mg by Per G Tube route 2 times daily with morning and evening meal * ondansetron (ZOFRAN) 4 MG tablet 4 mg by Per G Tube route every 8 hours as needed for Nausea/Vomiting * lansoprazole (PREVACID) 3 MG/ML (FIRST-Kit)(Started 07/01/2021) 2.5 mL by Enteral Tube route daily before breakfast * clotrimazole 1% cream - hydrocortisone 1 % Cream 50:50 CREA Apply to affected area 2 times daily as needed * hydrOXYzine HCl (ATARAX) 25 MG tablet 12.5 mg by Enteral Tube route every 6 hours as needed for Itching * aspirin (ASPIRIN) 81 MG chew tablet 81 mg by Enteral Tube route once daily * bisacodyl (DULCOLAX) 10 MG suppository Insert 10 mg into the rectum once daily as needed for Constipation (if no results from Milk of Magnesia) * magnesium citrate solution 396 mL by Enteral Tube route once daily as needed for Constipation (if no results from enema. Call MD if no BM 1 hour after completion of bowel protocol.) * sodium phosphate rectal (FLEET) 7-19 GM/118ML enema Insert 1 enema into the rectum once daily as needed for Constipation (if no results 1 day after suppository) * hydrocortisone (HYTONE) 1 % cream Apply to affected area 2 times daily -- apply to rash on chest/neck until healed * magnesium hydroxide (MILK OF MAGNESIA) 400 MG/5ML suspension Take 30 mL by mouth as needed for Constipation (if not BM in 3 days) Active Problems Problem Noted Date Diagnosed Date Cholecystostomy tube dysfunction 10/27/2021 Aspiration of vomit 06/19/2021 Severe sepsis 06/19/2021 Septic shock 06/19/2021 Calculus of gallbladder with chronic cholecystitis with obstruction 05/15/2021 Gall stones 05/15/2021 Immunizations * Covid ePropertyData primary monovalent 12+ yr 0.3mL Purple cap(Given 06/30/2021) * INFLUENZA VACCINE, QUADR. (AFLURIA, FLUZONE QUADRIVALENT; 6MO+) (IIV4)(Given 07/11/2019, 04/16/2015) * INFLUENZA VACCINE, QUADR. (FLUZONE; FLULAVAL; FLUARIX; AFLURIA QUADRIVALENT; 6MO+), 0.5 ML (IIV4)(Given 05/19/2021) Social History Tobacco Use Types Packs/Day Years Used Date Smoking Tobacco: Every Day Cigarettes Smokeless Tobacco: Never Tobacco Cessation:Ready to Q uit: No; Counseling Given: Yes Alcohol Use Standard Drinks/Week Comments Not Currently 0 (1 standard drink = 0.6 oz pur e alcohol) Sex and Gender Information Value Date Recorded Sex Assigned at Not on file Gender Identity Not on file Sexual Orientation Not on file Last Filed Vital Signs Vital Sign Reading Time Taken Comments Blood Pressure 152/79 10/31/2021 12:35 PM CDT Pulse 93 10/31/2021 12:35 PM CDT Temperature 37.1 C (98.7 F) 10/31/2021 12:35 PM CDT Respiratory Rate 18 10/31/2021 12:3 5 PM CDT Oxygen Saturation 99% 10/31/2021 12: 35 PM CDT Inhaled Oxygen Concentration 21% 06/28/2021 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 Weight 47.1 kg (103 lb 12.8 oz) 10/27/2021 6:43 AM CDT Height 160 cm (5' 2.99 ) 10/27/2021 6:43 AM CDT Body Mass Index 18.39 10/27/2021 6:43 AM CDT Procedures * FERRITIN(Performed 10/31/2021) * IRON + TRANSFERRIN PANEL(Performed 10/31/2021) * CBC W/O DIFFERENTIAL(Performed 10/31/2021) Performed for Cholecystostomy tube dysfunction, subsequent encounter * COMPREHENSIVE METABOLIC PANEL(Performed 10/31/2021) Performed for Cholecystostomy tube dysfunction, subsequent encounter * IR CHOLANGIOGRAM(Performed 10/30/2021) Performed for Cholecystostomy tube dysfunction, subsequent encounter * MAGNESIUM BLOOD(Performed 10/29/2021) Performed for Cholecystostomy tube dysfunction, subsequent encounter * CBC W AUTO DIFFERENTIAL(Performed 10/29/2021) Performed for Cholecystostomy tube dysfunction, subsequent encounter * COMPREHENSIVE METABOLIC PANEL(Performed 10/29/2021) Performed for Cholecystostomy tube dysfunction, subsequent encounter * GLUCOSE - POINT OF CARE(Performed 10/28/2021) * COMPREHENSIVE METABOLIC PANEL(Performed 10/28/2021) Performed for Cholecystostomy tube dysfunction, subsequent encounter * NM HEPATOBILIARY WO EF(Performed 10/27/2021) Performed for Cholecystostomy tube dysfunction, subsequent encounter * LACTIC ACID BLOOD(Performed 10/27/2021) Performed for Cholecystostomy tube dysfunction, subsequent encounter * CBC W AUTO DIFFERENTIAL(Performed 10/27/2021) Performed for Cholecystostomy tube dysfunction, subsequent encounter * PHOSPHORUS BLOOD(Performed 10/27/2021) Performed for Cholecystostomy tube dysfunction, subsequent encounter * MAGNESIUM BLOOD(Performed 10/27/2021) Performed for Cholecystostomy tube dysfunction, subsequent encounter * COMPREHENSIVE METABOLIC PANEL(Performed 10/27/2021) Performed for Cholecystostomy tube dysfunction, subsequent encounter * IR BILIARY DRAIN CATH EXCHANGE(Performed 10/22/2021) Performed for Gallstones * IR CHOLANGIOGRAM(Performed 10/01/2021) Performed for Gall stones * IR BILIARY DRAIN CATH EXCHANGE(Performed 09/24/2021) Performed for Gall stones * CARDIAC RHYTHM STRIP ORDER(Performed 07/02/2021) * SARS-COV-2 (COVID-19) RAPID(Performed 06/30/2021) * CBC W AUTO DIFFERENTIAL(Performed 06/30/2021) * RENAL FUNCTION PANEL(Performed 06/30/2021) * MAGNESIUM BLOOD(Performed 06/30/2021) * CBC W AUTO DIFFERENTIAL(Performed 06/29/2021) * RENAL FUNCTION PANEL(Performed 06/29/2021) * MAGNESIUM BLOOD(Performed 06/29/2021) * GLUCOSE - POINT OF CARE(Performed 06/28/2021) * CBC W AUTO DIFFERENTIAL(Performed 06/28/2021) * RENAL FUNCTION PANEL(Performed 06/28/2021) * MAGNESIUM BLOOD(Performed 06/28/2021) * SARS-COV-2 (COVID-19) RAPID(Performed 06/27/2021) * CULTURE BLOOD(Performed 06/27/2021) * CULTURE BLOOD(Performed 06/27/2021) * URINE MICROSCOPIC ONLY REFLEX TO CULTURE(Performed 06/27/2021) Performed for Severe sepsis (HCC) * URINALYSIS REFLEX MICROSCOPIC REFLEX CULTURE(Performed 06/27/2021) Performed for Severe sepsis (HCC) * CULTURE URINE(Performed 06/27/2021) Performed for Severe sepsis (HCC) * XR CHEST 1VW PORTABLE(Performed 06/27/2021) Performed for Severe sepsis (HCC) * DIFFERENTIAL MANUAL(Performed 06/27/2021) * PHOSPHORUS BLOOD(Performed 06/27/2021) * COMPREHENSIVE METABOLIC PANEL(Performed 06/27/2021) * CBC W AUTO DIFFERENTIAL(Performed 06/27/2021) * MAGNESIUM BLOOD(Performed 06/27/2021) * DIFFERENTIAL MANUAL(Performed 06/26/2021) * CBC W AUTO DIFFERENTIAL(Performed 06/26/2021) * RENAL FUNCTION PANEL(Performed 06/26/2021) * MAGNESIUM BLOOD(Performed 06/26/2021) * CBC W AUTO DIFFERENTIAL(Performed 06/25/2021) * RENAL FUNCTION PANEL(Performed 06/25/2021) * MAGNESIUM BLOOD(Performed 06/25/2021) * GLUCOSE - POINT OF CARE(Performed 06/24/2021) * CBC W AUTO DIFFERENTIAL(Performed 06/24/2021) * RENAL FUNCTION PANEL(Performed 06/24/2021) * MAGNESIUM BLOOD(Performed 06/24/2021) * PT EVAL AND TREAT(Performed 06/23/2021) * PT EVAL AND TREAT(Performed 06/23/2021) * OT EVAL AND TREAT(Performed 06/23/2021) * CBC W AUTO DIFFERENTIAL(Performed 06/23/2021) * MAGNESIUM BLOOD(Performed 06/23/2021) * RENAL FUNCTION PANEL(Performed 06/23/2021) * DIFFERENTIAL MANUAL(Performed 06/22/2021) * CBC W AUTO DIFFERENTIAL(Performed 06/22/2021) * MAGNESIUM BLOOD(Performed 06/22/2021) * RENAL FUNCTION PANEL(Performed 06/22/2021) * TRIGLYCERIDES BLOOD(Performed 06/21/2021) * BLOOD GASES ARTERIAL(Performed 06/20/2021) * CULTURE SPUTUM+GRAM STAIN(Performed 06/20/2021) * LACTIC ACID BLOOD(Performed 06/20/2021) * COMPREHENSIVE METABOLIC PANEL(Performed 06/20/2021) * BLOOD GASES ARTERIAL(Performed 06/20/2021) Performed for Aspiration of gastric contents, subsequent encounter * CULTURE BLOOD(Performed 06/20/2021) * MRSA DNA PCR(Performed 06/20/2021) * CULTURE BLOOD(Performed 06/20/2021) * LACTIC ACID BLOOD(Performed 06/20/2021) * GLUCOSE - POINT OF CARE(Performed 06/19/2021) * RENAL FUNCTION PANEL(Performed 06/19/2021) * LACTIC ACID BLOOD(Performed 06/19/2021) * CBC W AUTO DIFFERENTIAL(Performed 06/19/2021) * BLOOD GASES ARTERIAL(Performed 06/19/2021) * XR CHEST 1VW PORTABLE(Performed 06/19/2021) Performed for Aspiration of gastric contents, initial encounter * ENDOTRACHEAL TUBE NOTE(Performed 06/19/2021) * BLOOD GASES ARTERIAL(Performed 06/19/2021) * XR CHEST 1VW PORTABLE(Performed 06/19/2021) Performed for Aspiration of gastric contents, initial encounter * IR BILIARY ENDOSCOPY PERC(Performed 06/19/2021) Performed for Gall stones * PT-INR(Performed 06/19/2021) Performed for Gall stones * PTT(Performed 06/19/2021) Performed for Gall stones * CBC W AUTO DIFFERENTIAL(Performed 06/19/2021) Performed for Gall stones * BASIC METABOLIC PANEL (CALCIUM TOTAL)(Performed 06/19/2021) Performed for Gall stones * PT EVAL AND TREAT(Performed 05/20/2021) * OT EVAL AND TREAT(Performed 05/20/2021) * BASIC METABOLIC PANEL (CALCIUM TOTAL)(Performed 05/20/2021) * CBC W AUTO DIFFERENTIAL(Performed 05/20/2021) * C DIFFICILE GDH AG + TOXIN A+B(Performed 05/19/2021) * CBC W AUTO DIFFERENTIAL(Performed 05/19/2021) * VANCOMYCIN LEVEL TROUGH(Performed 05/18/2021) * VANCOMYCIN LEVEL PEAK(Performed 05/18/2021) * CBC W AUTO DIFFERENTIAL(Performed 05/18/2021) Performed for Sepsis, due to unspecified organism, unspecified whether acute organ dysfunction present (HCC) * IRON + TRANSFERRIN PANEL(Performed 05/18/2021) Performed for Anemia, unspecified type * CBC W/O DIFFERENTIAL(Performed 05/16/2021) Performed for Calculus of gallbladder with chronic cholecystitis with obstruction, Gall stones * BASIC METABOLIC PANEL (CALCIUM TOTAL)(Performed 05/16/2021) Performed for Calculus of gallbladder with chronic cholecystitis with obstruction, Gall stones * XR ABDOMEN KUB(Performed 05/15/2021) Performed for Calculus of gallbladder with chronic cholecystitis with obstruction * XR CHEST 1VW PORTABLE(Performed 05/15/2021) Performed for Altered mental status, unspecified altered mental status type * GLUCOSE - POINT OF CARE(Performed 05/15/2021) * VANCOMYCIN LEVEL RANDOM(Performed 05/15/2021) * COMPREHENSIVE METABOLIC PANEL(Performed 05/15/2021) Performed for Calculus of gallbladder with chronic cholecystitis with obstruction, Gall stones * CULTURE FUNGUS OTHER+FUNGUS SMEAR(Performed 05/15/2021) Performed for Calculus of gallbladder with chronic cholecystitis with obstruction * CULTURE FLUID+GRAM STAIN(Performed 05/15/2021) Performed for Calculus of gallbladder with chronic cholecystitis with obstruction * CULTURE ANAEROBE(Performed 05/15/2021) Performed for Calculus of gallbladder with chronic cholecystitis with obstruction * IR GALLBLADDER DRAINAGE(Performed 05/15/2021) Performed for Gall stones * SARS-COV-2 (COVID-19) RAPID(Performed 05/15/2021) Performed for Calculus of gallbladder with chronic cholecystitis with obstruction * PT-INR(Performed 05/15/2021) Performed for Calculus of gallbladder with chronic cholecystitis with obstruction * PTT(Performed 05/15/2021) Performed for Calculus of gallbladder with chronic cholecystitis with obstruction * CBC W AUTO DIFFERENTIAL(Performed 05/15/2021) Performed for Calculus of gallbladder with chronic cholecystitis with obstruction * BASIC METABOLIC PANEL (CALCIUM TOTAL)(Performed 05/15/2021) Performed for Calculus of gallbladder with chronic cholecystitis with obstruction * IR CHOLANGIOGRAM(Performed 03/14/2021) Performed for Cholecystitis * PT-INR [facility](Performed 03/14/2021) Performed for Cholecystitis * CBC W AUTO DIFFERENTIAL(Performed 03/14/2021) Performed for Cholecystitis Results * (ABNORMAL) CBC W/O DIFFERENTIAL (10/31/2021 3:03 AM CDT) Only the most recent of2 resultswithin the time period is included. WBC 5.5 4.4 - 10.7 x10E9/L 10/31/2021 3:28 AM CDT [facility] RBC 4.88 3.80 - 5.20 x10E12/L 10/31/2021 3:28 AM CDT [facility] Hemoglobin 12.0 12.0 - 15.6 gm/dL 10/31/2021 3:28 AM CDT [facility] Hematocrit 38.8 35.9 - 45.5 % 10/31/2021 3:28 AM CDT [facility] MCV 79.5(L) 80.7 - 98.3 fl 10/31/2021 3:28 AM CDT [facility] MCH 24.6(L) 26.7 - 34.0 pg 10/31/2021 3:28 AM CDT [facility] MCHC 30.9 30.8 - 35.9 gm/dL 10/31/2021 3:28 AM CDT [facility] Platelet Count 351 153 - 416 x10E9/L 10/31/2021 3:28 AM CDT [facility] RDW-CV 14.6 12.1 - 14.9 % 10/31/2021 3:28 AM CDT [facility] MPV 10.3 9.4 - 12.9 fl 10/31/2021 3:28 AM CDT [facility] Blood BLOOD SPECIMEN / Unknown Lab Venipuncture / Unknown 10/31/2021 3:03 AM CDT 10/31/2021 3:21 AM CDT Salud Sullivan MD LAB - HEMATOLOGY ORD ERABLES Performing Organization Address City/State/[facility] Co de Phone Number [facility] [address] [place] [address] * (ABNORMAL) COMPREHENSIVE METABOLIC PANEL (10/31/2021 3:03 AM CDT) Only the most recent of7 resultswithin the time period is included. Glucose 117(H) 70 - 105 mg/dL 10/31/2021 3:49 AM CDT [facility] Sodium 138 136 - 145 mmol/L 10/31/2021 3:49 AM CDT [facility] Potassium 3.8 3.5 - 5.1 mmol/L 10/31/2021 3:49 AM CDT [facility] Chloride 109(H) 98 - 107 mmol/L 10/31/2021 3:49 AM CDT [facility] CO2 19(L) 23 - 31 mmol/L 10/31/2021 3:49 AM CDT [facility] Calcium 9.2 8.4 - 10.4 mg/dL 10/31/2021 3:49 AM CDT [facility] Anion Gap 10 8 - 18 mmol/L 10/31/2021 3:49 AM CDT [facility] BUN 6(L) 9.8 - 20.1 mg/dL 10/31/2021 3:49 AM CDT [facility] Creatinine 0.66 0.57 - 1.11 mg/dL 10/31/2021 3:49 AM CDT [facility] Alkaline Phosphatase 95 40 - 150 U/L 10/31/2021 3:49 AM CDT [facility] ALT 13 0 - 61 U/L 10/31/2021 3:49 AM CDT [facility] AST 14 5 - 34 U/L 10/31/2021 3:49 AM CDT [facility] Protein Total 6.8 6.4 - 8.3 gm/dL 10/31/2021 3:49 AM CDT [facility] Albumin 3.6 3.2 - 4.6 gm/dL 10/31/2021 3:49 AM CDT [facility] Bilirubin Total 0.2 0.2 - 1.2 mg/dL 10/31/2021 3:49 AM CDT [facility] eGFR by CKD-EPI >90 >=90 mL/min/1.7 3 m2 10/31/2021 3:49 AM CDT [facility] Blood BLOOD SPECIMEN / Unknown Lab Venipuncture / Unknown 10/31/2021 3:03 AM CDT 10/31/2021 3:22 AM CDT [facility] - 10/31/2021 3:49 AM CDT eGFR result was calculated using the updated CKD-EPI Creatinine Equations (2020). Prior to go live 2021 the eGFR was calculated using the MDRD calculation. Please note Reference Range change. Salud Sullivan MD LAB - CHEMISTRY MIKEY PINA [facility] Organization Address City/State/ZIP Co de Phone Number [facility] [address] [place] [address] * (ABNORMAL) IRON + TRANSFERRIN PANEL (10/31/2021 3:03 AM CDT) Only the most recent of2 resultswithin the time period is included. Iron 21(L) 50 - 170 ug/dL 10/31/2021 12:21 PM CDT [facility] Transferrin 195 173 - 360 mg/dL 10/31/2021 12:21 PM CDT [facility] TIBC Calculated 244 240 - 450 ug/dL 10/31/2021 12:21 PM CDT [facility] Iron Saturation % 9(L) 20 - 50 % 10/31/2021 12:21 PM CDT [facility] Blood BLOOD SPECIMEN / Unknown Lab Venipuncture / Unknown 10/31/2021 3:03 AM CDT 10/31/2021 3:22 AM CDT Davion Turcios MD LAB - CHEMISTRY MIKEY PINA Performing Organization Address [facility] Co de Phone Number [facility] [address] [place] [id number] * (ABNORMAL) FERRITIN (10/31/2021 3:03 AM CDT) Ferritin 220(H) 5 - 204 ng/mL 10/31/2021 12:41 PM CDT [facility] Blood BLOOD SPECIMEN / Unknown Lab Venipuncture / Unknown 10/31/2021 3:03 AM CDT 10/31/2021 3:22 AM CDT Davion Turcios MD LAB - CHEMISTRY MIKEY PINA Performing Organization Address [facility]/ZIP Co de Phone Number [facility] [address] [place] [address] [phone] * IR CHOLANGIOGRAM (10/30/2021 3:20 PM CDT) Only the most recent of3 resultswithin the time period is included. Anatomical Region Laterality Modality Abdomen X-Ray Angiograph y 10/30/2021 3:50 PM CDT Narrative 10/31/2021 7:59 AM CDT History: Marilyn Leanna? is a?61 year old?female w/PMH of cholelithiasis and chronic cholecystitis. Cholecystostomy tube placed October 2020 w/14 F pigtail catheter. Last exchange 09/24/21. Cristy tube displaced and replaced w/10F tube 10/22/21. IR consulted on 10/27/21 for replacement of displaced cristy tube. Operators: 1. Dr. Mandel, Attending Physician Anesthesia: None Procedure: Attempted access to the gall bladder using existing tract. Fluoroscopic time: 3 seconds Contrast: 3 mL of Isovue-370 Procedure in detail: The procedure, risk, and possible complications were explained to the patient's son in detail, and informed consent was obtained.?The patient was placed in a supine position on the angiography table. A finding fastener film of the upper abdomen was obtained which was unremarkable. The existing tract of previous cholecystostomy tube was accessed, however access could not be obtained to the gall bladder due to tract healing, since the patient is asymptomatic with no WBC a fresh stick cholecystostomy tube was not performed. The patient tolerated the procedure well and was transferred to the holding area in stable condition. There were no immediate complications associated with the procedure. Impression:? The existing tract of previous cholecystostomy tube was accessed, however access could not be obtained to the gall bladder due to tract healing, since the patient is asymptomatic with no WBC a fresh stick cholecystostomy tube was not performed. Follow-up: Patient can return to snf, patient does not need to be NPO I, Dr. Mandel, was present and performed/supervised the entire procedure. *Reading Radiologist: Bernard Mandel on 10/31/2021 at 7:59 AM Procedure Note Bernard Mandel MD - 10/31/2021 History: Marilyn Ram? is a?61 year old?female w/PMH of cholelithiasis and chronic cholecystitis. Cholecystostomy tube placed October 2020 w/14 F pigtail catheter. Last exchange 09/24/21. Cristy tube displaced and replaced w/10F tube 10/22/21. IR consulted on 10/27/21 for replacement of displaced cristy tube. Operators: 1. Dr. Mandel, Attending Physician Anesthesia: None Procedure: Attempted access to the gall bladder using existing tract. Fluoroscopic time: 3 seconds Contrast: 3 mL of Isovue-370 Procedure in detail: The procedure, risk, and possible complications were explained to the patient's son in detail, and informed consent was obtained.?The patient was placed in a supine position on the angiography table. A finding fastener film of the upper abdomen was obtained which was unremarkable. The existing tract of previous cholecystostomy tube was accessed, however access could not be obtained to the gall bladder due to tract healing, since the patient is asymptomatic with no WBC a fresh stick cholecystostomy tube was not performed. The patient tolerated the procedure well and was transferred to the holding area in stable condition. There were no immediate complications associated with the procedure. Impression:? The existing tract of previous cholecystostomy tube was accessed, however access could not be obtained to the gall bladder due to tract healing, since the patient is asymptomatic with no WBC a fresh stick cholecystostomy tube was not performed. Follow-up: Patient can return to snf, patient does not need to be NPO I, Dr. Mandel, was present and performed/supervised the entire procedure. *Reading Radiologist: Bernard Mandel on 10/31/2021 at 7:59 AM Orly Azevedo DENTAL HYGIENE ADMINISTRATIVE ASSISTANT-FIELD SUPERVISOR [employer]ODUCTION IR ORDERABL ES * (ABNORMAL) CBC W AUTO DIFFERENTIAL (10/29/2021 3:12 AM CDT) Only the most recent of18 resultswithin the time period is included. WBC 4.9 4.4 - 10.7 x10E9/L 10/29/2021 4:06 AM CDT [facility] WBC Corrected 10/29/2021 4:06 AM CDT [facility] RBC 4.38 3.80 - 5.20 x10E12/L 10/29/2021 4:06 AM CDT [facility] Hemoglobin 10.8(L) 12.0 - 15.6 gm/dL 10/29/2021 4:06 AM CDT [facility] Hematocrit 34.6(L) 35.9 - 45.5 % 10/29/2021 4:06 AM CDT [facility] MCV 79.0(L) 80.7 - 98.3 fl 10/29/2021 4:06 AM CDT [facility] MCH 24.7(L) 26.7 - 34.0 pg 10/29/2021 4:06 AM CDT [facility] MCHC 31.2 30.8 - 35.9 gm/dL 10/29/2021 4:06 AM [facility] Platelet Count 322 153 - 416 x10E9/L 10/29/2021 4:06 AM [facility] RDW-CV 14.8 12.1 - 14.9 % 10/29/2021 4:06 AM [facility] MPV 10.3 9.4 - 12.9 fl 10/29/2021 4:06 AM [facility] Neutrophils % 44.9 44.0 - 73.0 % 10/29/2021 4:06 AM [facility] Lymphocytes % 41.5 20.0 - 43.0 % 10/29/2021 4:06 AM [facility] Monocytes % 6.7 5.0 - 13.0 % 10/29/2021 4:06 AM [facility] Eosinophils % 6.3(H) 0.0 - 6.0 % 10/29/2021 4:06 AM [facility] Basophils % 0.6 0.0 - 2.0 % 10/29/2021 4:06 AM [facility] Immature Granulocytes 0.0 0 - 1 % 10/29/2021 4:06 AM [facility] Neutrophil Absolute 2.20 2.01 - 7.14 x10E9/L 10/29/2021 4:06 AM [facility] Lymphocytes Absolute 2.04 1.07 - 3.94 x10E9/L 10/29/2021 4:06 AM [facility] Monocytes Absolute 0.33 0.26 - 1.07 x10E9/L 10/29/2021 4:06 AM [facility] Eosinophils Absolute 0.31 0 - 0.47 x10E9/L 10/29/2021 4:06 AM [facility] Basophils Absolute 0.03 0 - 0.08 x10E9/L 10/29/2021 4:06 AM [facility] Immature Granulocytes Absolute 0.00 0.00 - 0.06 x10E9/L 10/29/2021 4:06 AM [facility] nRBC Auto 0 /100 WBC 10/29/2021 4:06 AM [facility] Blood BLOOD SPECIMEN / Unknown Lab Venipuncture / Unknown 10/29/2021 3:12 AM CDT 10/29/2021 3:56 AM CDT Panchito Levy MD LAB - HEMATOLOGY ORD ERABLES Performing Organization Address [facility]/ZIP Co de Phone Number [facility] [address] [place] [id number] * MAGNESIUM BLOOD (10/29/2021 3:12 AM CDT) Only the most recent of11 resultswithin the time period is included. Magnesium 1.8 1.6 - 2.6 mg/dL 10/29/2021 4:26 AM CDT [facility] Blood BLOOD SPECIMEN / Unknown Lab Venipuncture / Unknown 10/29/2021 3:12 AM CDT 10/29/2021 3:55 AM CDT Panchito Levy MD LAB - CHEMISTRY ORDE RABUMANG Performing Organization Address [facility] Co de Phone Number [facility] [address] [place] [id number] * GLUCOSE - POINT OF CARE (10/28/2021 2:27 PM CDT) Only the most recent of5 resultswithin the time period is included. Glucose WB/POC 76 70 - 106 mg/dL 10/28/2021 9:08 PM CDT [facility] Specimen Type Cap Fingerstick 2021 9:08 PM CDT [facility] Blood BLOOD SPECIMEN / Unknown 10/28/2021 2:27 PM CDT 10/28/2021 9:08 PM CDT Panchito Levy MD LAB - POINT OF CARE ORDERABLES Performing Organization Address [facility] Co de Phone Number [facility] [address] [place] [id number] * NM HEPATOBILIARY WO EF (10/27/2021 1:51 PM CDT) Anatomical Region Laterality Modality Abdomen Nuclear Medicine 10/27/2021 3:05 PM CDT Impressions 10/27/2021 3:29 PM CDT IMPRESSION: No significant uptake within the gallbladder post morphine administration. Findings are suggestive of acute cholecystitis in the proper clinical settings. These findings were discussed in detail with the patient's care provider, Orly Azevedo NP by Dr. Judi Rocha D.O. via telephone at 3:15 PM on 10/27/2021 with read back comprehension and verification. > Interpreting Provider: Judi Rocha DO on 10/27/2021 3:29 PM Narrative 10/27/2021 3:29 PM CDT Hepatobiliary scan with pharmacologic intervention. HISTORY: 61-year-old female presenting chronic cholecystitis TECHNIQUE: A dose of 5.6 mCi Tc-99m Choletec was administered intravenously. Dynamic anterior images of the abdomen were obtained for 1 hour. Additional images of the abdomen were obtained for 30 minutes after 2 mg morphine was administered. COMPARISON: Cholangiogram dated 10/01/2021 FINDINGS: There is normal clearance of the blood pool. Tracer activity is seen in biliary system and common bile duct at 10 minutes. Bowel activity is noted at 20 minutes. No evidence of bowel activity in the initial 60 minutes. Additional delayed images at 2 hours post injection demonstrate no evidence of gallbladder activity with diffuse bowel activity. Post fatty morphine images demonstrate diffuse bowel activity with no significant uptake within the gallbladder. Procedure Note Judi Rocha DO - 10/27/2021 Hepatobiliary scan with pharmacologic intervention. HISTORY: 61-year-old female presenting chronic cholecystitis TECHNIQUE: A dose of 5.6 mCi Tc-99m Choletec was administered intravenously. Dynamic anterior images of the abdomen were obtained for1 hour. Additional images of the abdomen were obtained for 30 minutes after2 mg morphine was administered. COMPARISON: Cholangiogram dated 10/01/2021 FINDINGS: There is normal clearance of the blood pool. Tracer activityis seen in biliary system and common bile duct at 10 minutes. Bowelactivity is noted at 20 minutes. No evidence of bowel activity in the initial 60 minutes. Additional delayed images at 2 hours post injection demonstrateno evidence of gallbladder activity with diffuse bowel activity. Post fatty morphine images demonstrate diffuse bowel activity with no significant uptake within the gallbladder. IMPRESSION: No significant uptake within the gallbladder post morphineadministration. Findings are suggestive of acute cholecystitis in the proper clinical settings. These findings were discussed in detail with the patient's careprovider, Orly Azevedo NP by Dr. Judi Rocha D.O. via telephone at 3:15PM on 10/27/2021 with read back comprehension and verification. > Interpreting Provider: Judi Rocha DO on 10/27/2021 3:29 PM Orly Azevedo DENTAL HYGIENE ADMINISTRATIVE ASSISTANT-FIELD SUPERVISOR SEED [employer]ODUCTION NM ORDERABL ES * PHOSPHORUS BLOOD (10/27/2021 6:35 AM CDT) Only the most recent of2 resultswithin the time period is included. Phosphorus 3.8 2.3 - 4.7 mg/dL 10/27/2021 7:00 AM CDT [facility] Blood BLOOD SPECIMEN / Unknown Lab Venipuncture / Unknown 10/27/2021 6:35 AM CDT 10/27/2021 6:37 AM CDT Davion Turcios MD LAB - CHEMISTRY MIKEY PINA Performing Organization Address [facility] de Phone Number [facility] [address] [place], [place] [phone] * LACTIC ACID BLOOD (10/27/2021 6:35 AM CDT) Only the most recent of4 resultswithin the time period is included. Lactic Acid 1.3 <=2 mmol/L 10/27/2021 6:57 AM CDT [facility] Blood BLOOD SPECIMEN / Unknown Lab Venipuncture / Unknown 10/27/2021 6:35 AM CDT 10/27/2021 6:38 AM CDT Davion Turcios MD LAB - CHEMISTRY MIKEY PINA Performing Organization Address City/[facility]/ZIP Co de Phone Number [facility] [address] [place] [phone] * IR BILIARY DRAIN CATH EXCHANGE (10/22/2021 2:34 PM CDT) Only the most recent of2 resultswithin the time period is included. Anatomical Region Laterality Modality Abdomen X-Ray Angiograph y Narrative 10/22/2021 3:50 PM CDT History: 61 year old?female?with PMHx of chololithiasis and chronic cholecystitis.?In October 2020, patient had a cholecystostomy tube?placed, 14 Fr pigtail catheter.?Last tube exchange on?09/24/21.?Recent cholangiogram, 10/01/21, showed patent cystic duct, hepatic duct, and common bile duct. Cholecystostomy tube displaced, here for replacement. Operators: 1. Dr. Mandel, Attending Physician 2. Dr. Sanchez, Resident Physician Anesthesia: 1. Local anesthesia - 10 mL of 1% lidocaine Procedure: 1. Fluoroscopy guided replacement of a 10 Andorran cholecystostomy catheter through pre-existing tract. Procedure in detail: The procedure, risk, and possible complications were explained to the patient in detail, and informed consent was obtained. The patient was placed in a supine position on the angiography table. The marked site and skin around the region of interest was prepped and draped in a sterile fashion. A 4 Andorran Molina catheter with .035 glidewire were used to cannulate pre-existing tract in the right upper quadrant. Contrast was injected through the guide catheter which demonstrated contrast within the gallbladder, cystic, hepatic and common bile ducts. Local anesthesia was provided with 1% Lidocaine. A 0.035 Amplatz wire was looped within the gallbladder. A 10 Andorran ReSolve pigtail drainage catheter was advanced into the gallbladder. Contrast was hand injected through the catheter and cholangiogram obtained demonstrated catheter in appropriate position within the gallbladder and patent cystic duct and common bile duct. The gallbladder appeared decompressed and no aspirate was drained during the procedure. The patient tolerated the procedure well and was transferred to the holding area in stable condition. There were no immediate complications associated with the procedure. Impression: Successful fluoroscopic guided replacement of a 10 Andorran cholecystostomy catheter, as described above. Follow up: The catheter is open for external drainage. Gently flush the catheter with 10 mL of saline two times a day. ? I, Dr. Mandel, was present and performed/supervised the entire procedure. Dictated by Tapan Sanchez MD (Interventional Meat Butcher) Dictated by Tapan Sanchez on 10/22/2021 3:13 PM I, Bernard Mandel, have personally reviewed the images and I agree with this report. *Reading Radiologist: Bernard Mandel on 10/22/2021 at 3:50 PM Bernard Mandel MD IR ORDERABLES * CARDIAC RHYTHM STRIP ORDER (07/02/2021 10:30 PM SUPERVISOR AIR CONDITIONING INSTALLER) Narrative 07/02/2021 10:30 PM SUPERVISOR AIR CONDITIONING INSTALLER Ordered by an unspecified provider. Scanned Document CARDIAC SERVICES ORD ERABLES * SARS-COV-2 (COVID-19) RAPID (06/30/2021 1:56 PM SUPERVISOR AIR CONDITIONING INSTALLER) Only the most recent of3 resultswithin the time period is included. COVID-19 PCR Not detected Not detected 06/30/20 3:07 PM SUPERVISOR AIR CONDITIONING INSTALLER [facility] Microbiology SPECIMEN FROM NASOPHARYNGEAL STRUCTURE / Unknown Collection / Unknown 06/30/2021 1:56 PM SUPERVISOR AIR CONDITIONING INSTALLER 06/30/2021 2:03 PM SUPERVISOR AIR CONDITIONING INSTALLER Narrative [facility] - 06/30/2021 3:07 PM SUPERVISOR AIR CONDITIONING INSTALLER The Cepheid Xpert Xpress SARS-COV-2 has been authorized by the Food and Drug Administration (FDA) under an Emergency Use Authorization (EUA). This test has been validated in accordance with the FDA's guidance document Policy for Diagnostic Testing in Laboratories Certified to perform High Complexity Testing under CLIA prior to Emergency Use Authorization for Coronavirus Disease-2019 during the Public Health Emergency issued on September 30, 2019. FDA independent review of this validation is pending. This test is only authorized for the duration of the time the declaration that circumstances exist justifying the authorization of emergency use of in vitro diagnostic tests for detection of SARS-COV-2 virus and/or diagnosis of COVID-19 infection under 564(b) (1) of the Act. 21 U.S.C. 360bbb-3 (b) (1), unless the authorization is terminated or revoked sooner. Fact Sheets for this EUA assay are available upon request. Alan Echols MD LAB - MICROBIOLOGY O RDERABLES [facility] [address] [place] [address] * (ABNORMAL) RENAL FUNCTION PANEL (06/30/2021 7:31 AM SUPERVISOR AIR CONDITIONING INSTALLER) Only the most recent of9 resultswithin the time period is included. Glucose 166(H) 70 - 105 mg/dL 06/30/2021 8:[address] [facility] Sodium 140 136 - 145 mmol/L 06/30/2021 8:[address] [facility] Potassium 4.5 3.5 - 5.1 mmol/L 06/30/2021 8:[address] [facility] Chloride 109(H) 98 - 107 mmol/L 06/30/2021 8:[address] [facility] CO2 21(L) 23 - 31 mmol/L 06/30/2021 8:[address] [facility] Calcium 9.3 8.4 - 10.4 mg/dL 06/30/2021 8:[address] [facility] Anion Gap 10 8 - 18 mmol/L 06/30/2021 8:[address] [facility] BUN 17 9.8 - 20.1 mg/dL 06/30/2021 8:[address] [facility] Creatinine 0.58 0.57 - 1.11 mg/dL 06/30/2021 8:[address] [facility] Albumin 3.4 3.2 - 4.6 gm/dL 06/30/2021 8:[address] [facility] Phosphorus 3.5 2.3 - 4.7 mg/dL 06/30/2021 8:[address] [facility] eGFR by MDRD >60 >60 mL/min/1.7 3m2 06/30/2021 8:[address] [facility] eGFR by MDRD >60 >60 mL/min/1.7 3m2 06/30/2021 8:[address] [facility] Blood BLOOD SPECIMEN / Unknown Lab Venipuncture / Unknown 06/30/2021 7:31 AM SUPERVISOR AIR CONDITIONING INSTALLER 06/30/2021 7:53 AM SUPERVISOR AIR CONDITIONING INSTALLER Oliver Finney MD LAB - CHEMISTRY MIKEY PINA [facility] [address] [place] [address] * CULTURE BLOOD (06/27/2021 1:28 PM SUPERVISOR AIR CONDITIONING INSTALLER) Only the most recent of4 resultswithin the time period is included. Culture No growth day 5 MIKAL 07/02/2021 4:00 PM SUPERVISOR AIR CONDITIONING INSTALLER [facility] Blood PERIPHERAL BLOOD / Unknown Lab Venipuncture / Unknown 06/27/2021 1:28 PM SUPERVISOR AIR CONDITIONING INSTALLER 06/27/2021 2:10 PM SUPERVISOR AIR CONDITIONING INSTALLER Alan Echols MD LAB - MICROBIOLOGY O RDERABLES [facility] [address] [place] [address], [facility] [phone] * (ABNORMAL) URINE MICROSCOPIC ONLY REFLEX TO CULTURE (06/27/2021 9:58 AM SUPERVISOR AIR CONDITIONING INSTALLER) Reflex Status Culture to follow 06/27/2021 10:34 AM SUPERVISOR AIR CONDITIONING INSTALLER [facility] RBC UA 21-50(A) None Seen, 0-2, 3-5 # /hpf 06/27/2021 10:34 AM SUPERVISOR AIR CONDITIONING INSTALLER [facility] WBC UA 11-20(A) None Seen, 0-5 # /hpf 06/27/2021 10:34 AM SUPERVISOR AIR CONDITIONING INSTALLER [facility] Bacteria UA Trace(A) None Seen 06/27/2021 10:34 AM SUPERVISOR AIR CONDITIONING INSTALLER [facility] Squamous Epithelial Cells 0-2 None Seen, 0-2, 3-5 /hpf 06/27/2021 10:34 AM SUPERVISOR AIR CONDITIONING INSTALLER [facility] Mucus UA 3+ /LPF 06/27/2021 10:34 AM SUPERVISOR AIR CONDITIONING INSTALLER [facility] Budding Yeast Many(A) None seen /hpf 06/27/2021 10:34 AM SUPERVISOR AIR CONDITIONING INSTALLER [facility] Hyaline Casts 3-5(A) None Seen, 0-2 /LPF 06/27/2021 10:34 AM SUPERVISOR AIR CONDITIONING INSTALLER [facility] Calcium Oxalate Crystals Occasional( A) None seen /HPF 06/27/2021 10:34 AM SUPERVISOR AIR CONDITIONING INSTALLER [facility] Urine URINE SPECIMEN OBTAINED VIA INDWELLING URINARY CATHETER / Unknown Collection / Unknown 06/27/2021 9:58 AM SUPERVISOR AIR CONDITIONING INSTALLER 06/27/2021 10:03 AM [facility] Narrative [facility] - 06/27/2021 10:34 AM SUPERVISOR AIR CONDITIONING INSTALLER Alan Echols MD LAB - URINALYSIS ORD ERABLES [facility] [address] [place] [address] * (ABNORMAL) URINALYSIS REFLEX MICROSCOPIC REFLEX CULTURE (06/27/2021 9:58 AM SUPERVISOR AIR CONDITIONING INSTALLER) Color UA Yellow Straw, Yellow 06/27/2021 10:[address] [facility] Clarity UA Clear Clear 06/27/2021 10:[address] [facility] Glucose UA Negative Negative 06/27/2021 10:[address] [facility] Bilirubin UA Negative Negative 06/27/2021 10:[address] [facility] Ketone UA Trace(A) Negative 06/27/2021 10:[address] [facility] Specific Fenton UA 1.024 1.005 - 1.030 06/27/2021 10:[address] [facility] Blood UA 1+(A) Negative 06/27/2021 10:[address] [facility] pH UA 5.0 5.0 - 8.0 pH 06/27/2021 10:[address] [facility] Protein UA 1+(A) Negative 06/27/2021 10:[address] [facility] Urobilinogen UA Negative Negative mg/dL 06/27/2021 10:[address] [facility] Nitrite UA Negative Negative 06/27/2021 10:[address] [facility] Leukocyte UA Negative Negative 06/27/2021 10:[address] [facility] Urine Microscopy Urine microscopy to follow 06/27/2021 10:[address] [facility] Reflex Status Culture not indicated 06/27/2021 10:[address] [facility] Urine URINE SPECIMEN OBTAINED VIA INDWELLING URINARY CATHETER / Unknown Collection / Unknown 06/27/2021 9:58 AM SUPERVISOR AIR CONDITIONING INSTALLER 06/27/2021 10:03 AM [facility] Narrative [facility] - 06/27/2021 10:23 AM SUPERVISOR AIR CONDITIONING INSTALLER Ascorbic Acid can cause false negative urine strip tests for blood, glucose, nitrite, and bilirubin. Alan Echols MD LAB - URINALYSIS ORD ERABLES [facility] [address] [place] [address] * CULTURE URINE (06/27/2021 9:58 AM SUPERVISOR AIR CONDITIONING INSTALLER) Culture Urine <10,000 CFU/mL urogenital karri MIKAL 06/28/2021 2:15 PM SUPERVISOR AIR CONDITIONING INSTALLER [facility] Urine URINE SPECIMEN OBTAINED VIA INDWELLING URINARY CATHETER / Unknown Collection / Unknown 06/27/2021 9:58 AM SUPERVISOR AIR CONDITIONING INSTALLER 06/27/2021 10:03 AM SUPERVISOR AIR CONDITIONING INSTALLER Alan Echols MD LAB - MICROBIOLOGY O RDERABLES Performing Organization Address City/[facility]/ZIP Co de Phone Number [facility] [address] [phone] * XR CHEST 1VW PORTABLE (06/27/2021 9:34 AM SUPERVISOR AIR CONDITIONING INSTALLER) Only the most recent of4 resultswithin the time period is included. Anatomical Region Laterality Modality Chest Radiographic Ursula ging 06/27/2021 9:39 AM SUPERVISOR AIR CONDITIONING INSTALLER Impressions 06/27/2021 9:40 AM SUPERVISOR AIR CONDITIONING INSTALLER Decreased infiltrates within the right lower lobe. Increased infiltrate within the right upper lobe. Stable left-sided infiltrates. Interval removal of endotracheal tube and nasogastric tube. *Reading Radiologist: Robert Bernstein on 06/27/2021 at 9:40 AM Narrative 06/27/2021 9:40 AM SUPERVISOR AIR CONDITIONING INSTALLER Chest single view INDICATION: Sepsis FINDINGS: Endotracheal tube and nasogastric tube have been removed. Infiltrates within the right lower lobe are improved. There is some increased infiltrate within the right upper lobe. Left-sided infiltrates are stable. There is no pleural effusion or pneumothorax. The heart size is normal. Procedure Note Robert Bernstein MD - 06/27/2021 Chest single view INDICATION: Sepsis FINDINGS: Endotracheal tube and nasogastric tube have been removed. Infiltrates within the right lower lobe are improved. There is some increased infiltrate within the right upper lobe. Left-sided infiltrates are stable. There is no pleural effusion or pneumothorax. The heart size is normal. IMPRESSION Decreased infiltrates within the right lower lobe. Increased infiltrate within the right upper lobe. Stable left-sided infiltrates. Interval removal of endotracheal tube and nasogastric tube. *Reading Radiologist: Robert Bernstein on 06/27/2021 at 9:40 AM Alan Echols MD DIAGNOSTIC IMAGING O RDERABLES * (ABNORMAL) DIFFERENTIAL MANUAL (06/27/2021 5:11 AM SUPERVISOR AIR CONDITIONING INSTALLER) Only the most recent of3 resultswithin the time period is included. WBC Auto 8.1 x10E9/L 06/27/2021 6:31 AM SUPERVISOR AIR CONDITIONING INSTALLER [facility] WBC Corrected 06/27/2021 6:31 AM SUPERVISOR AIR CONDITIONING INSTALLER [facility] nRBC 06/27/2021 6:31 AM SUPERVISOR AIR CONDITIONING INSTALLER [facility] Neutrophil % Manual 63 44 - 73 % 06/27/2021 6:31 AM SUPERVISOR AIR CONDITIONING INSTALLER [facility] Lymphocytes % Manual 22 20 - 43 % 06/27/2021 6:31 AM SUPERVISOR AIR CONDITIONING INSTALLER [facility] Monocytes % Manual 3(L) 5 - 13 % 2020 6:31 AM SUPERVISOR AIR CONDITIONING INSTALLER [facility] Eosinophils % Manual 7(H) 0 - 6 % 06/27/2021 6:31 AM SUPERVISOR AIR CONDITIONING INSTALLER [facility] Basophils % Manual 1 0 - 2 % 2020 6:31 AM SUPERVISOR AIR CONDITIONING INSTALLER [facility] Neutrophils Absolute Manual 5.10 2.01 - 7.14 x10E9/L 06/27/2021 6:31 AM SUPERVISOR AIR CONDITIONING INSTALLER [facility] Lymphocytes Absolute Manual 1.78 1.07 - 3.94 x10E9/L 06/27/2021 6:31 AM SUPERVISOR AIR CONDITIONING INSTALLER [facility] Monocytes Absolute Manual 0.24(L) 0.26 - 1.07 x10E9/L 06/27/2021 6:31 AM SUPERVISOR AIR CONDITIONING INSTALLER [facility] Eosinophils Absolute Manual 0.57(H) 0.00 - 0.47 x10E9/L 06/27/2021 6:31 AM SUPERVISOR AIR CONDITIONING INSTALLER [facility] Basophils Absolute Manual 0.08 0.00 - 0.08 x10E9/L 06/27/2021 6:31 AM SUPERVISOR AIR CONDITIONING INSTALLER [facility] Atypical Lymphocytes Absolute Manual 0.32(H) <=0.00 x10E9/L 06/27/2021 6:[address] [facility] Atypical Lymphocyte % Manual 4(H) <=0 % 06/27/2021 6:[address] [facility] Cells Counted 100 # cells 06/27/2021 6:[address] [facility] WBC Morph Normal 06/27/2021 6:[address] [facility] Anisocytosis 2+(A) None 06/27/2021 6:[address] [facility] Poikilocytosis 2+(A) None 06/27/2021 6:[address] [facility] Elliptocytes 2+(A) None 06/27/2021 6:[address] [facility] Platelet Estimation Normal 06/27/2021 6:[address] [facility] Blood BLOOD SPECIMEN / Unknown Venipuncture / Unknown 06/27/2021 5:11 AM SUPERVISOR AIR CONDITIONING INSTALLER 06/27/2021 5:32 AM SUPERVISOR AIR CONDITIONING INSTALLER Oliver Finney MD LAB - HEMATOLOGY ORD ERABLES Performing Organization Address City/[facility]/ZIP Co de Phone Number [facility] [address] [place] [phone] * (ABNORMAL) TRIGLYCERIDES BLOOD (06/21/2021 5:59 AM SUPERVISOR AIR CONDITIONING INSTALLER) Pathologist [facility] Triglycerides 207(H) <150 mg/dL 06/21/2021 7:[address] [facility] Blood BLOOD SPECIMEN / Unknown Venipuncture / Unknown 06/21/2021 5:59 AM SUPERVISOR AIR CONDITIONING INSTALLER 06/21/2021 6:50 AM SUPERVISOR AIR CONDITIONING INSTALLER Presley Johnson MD LAB - CHEMISTRY ORDE YOVANI [facility] [address], [place] [id number] * (ABNORMAL) BLOOD GASES ARTERIAL (06/20/2021 11:29 AM SUPERVISOR AIR CONDITIONING INSTALLER) Only the most recent of4 resultswithin the time period is included. Pathologist [facility] pH Arterial 7.37 7.35 - 7.45 pH 06/20/2021 11:44 AM SUPERVISOR AIR CONDITIONING INSTALLER [facility] pO2 Arterial 59(L) 80 - 100 mmHg 06/20/2021 11:44 AM SUPERVISOR AIR CONDITIONING INSTALLER [facility] pCO2 Arterial 44 35 - 45 mmHg 06/20/2021 11:44 AM SUPERVISOR AIR CONDITIONING INSTALLER [facility] HCO3 Arterial 25 22 - 26 mmol/l 06/20/2021 11:44 AM SUPERVISOR AIR CONDITIONING INSTALLER [facility] BE Arterial -0.2 -2.0 - 2.0 mmol/L 06/20/2021 11:44 AM SUPERVISOR AIR CONDITIONING INSTALLER [facility] O2 Saturation Arterial 92 90 - 100 % 06/20/2021 11:44 AM SUPERVISOR AIR CONDITIONING INSTALLER [facility] Sample Site L Radial 06/20/2021 11:44 AM SUPERVISOR AIR CONDITIONING INSTALLER [facility] Mode CMV 06/20/2021 11:44 AM SUPERVISOR AIR CONDITIONING INSTALLER [facility] FI O2 35.0 % 06/20/2021 11:44 AM SUPERVISOR AIR CONDITIONING INSTALLER [facility] Mechanical Tidal Volume (mL) 350 06/20/2021 11:44 AM SUPERVISOR AIR CONDITIONING INSTALLER [facility] Mechanical Respiratory Rate (bpm) 20 06/20/2021 11:44 AM SUPERVISOR AIR CONDITIONING INSTALLER [facility] PEEP (cmH2O) 5 06/20/2021 11:44 AM SUPERVISOR AIR CONDITIONING INSTALLER [facility] P/F Ratio 169 06/20/2021 11:44 AM SUPERVISOR AIR CONDITIONING INSTALLER [facility] Blood, arterial ARTERIAL BLOOD SPECIMEN / Unknown 06/20/2021 11:29 AM SUPERVISOR AIR CONDITIONING INSTALLER 06/20/2021 11:29 AM SUPERVISOR AIR CONDITIONING INSTALLER Ranjeet Siu MD LAB - BLOOD GASES OR DERABLES Performing Organization Address City/State/[facility] Co de Phone Number [facility] [address] [place] [address] * (ABNORMAL) CULTURE SPUTUM+GRAM STAIN (06/20/2021 6:08 AM SUPERVISOR AIR CONDITIONING INSTALLER) Culture Moderate Enterobacter cloacae complex(A) MIKAL 06/22/2021 5:15 AM SUPERVISOR AIR CONDITIONING INSTALLER [facility] Gram Stain >= 25 per low power field Polymorphonuclear cells 06/22/2021 5:15 AM [employer] [facility] Gram Stain <10 per low power field Squamous epithelial cells 06/22/2021 5:15 AM [employer] [facility] Gram Stain Heavy Gram-negative bacilli 06/22/2021 5:15 AM [facility] Gram Stain Moderate Yeast 06/22/2021 5:15 AM [facility] Microbiology SPUTUM / Unknown Collection / Unknown 06/20/2021 6:08 AM [employer] 06/20/2021 6:15 AM [employer] Narrative [facility] - 06/22/2021 5:15 AM [employer] Enterobacter, Citrobacter, Serratia, and Klebsiella (formerly Enterobacter) aerogenes may develop resistance during prolonged therapy with third-generation cephalosporins as a result of derepression of AmpC beta-lactamase. Therefore, isolates that are initially susceptible may become resistant within 3 or 4 days after initiation of therapy. Testing of repeat isolates may be warranted. Organism Antibiotic Method Susceptibility Enterobacter cloacae complex Amikacin MIKAL <=2 ug/mL: Susceptible Enterobacter cloacae complex Cefepime MIKAL 2 ug/mL: Susceptible Enterobacter cloacae complex Ceftriaxone MIKLA >=64 ug/mL: Resistant Enterobacter cloacae complex Ciprofloxacin MIKAL <=0.25 ug/mL: Susceptible Enterobacter cloacae complex Gentamicin MIKAL <=1 ug/mL: Susceptible Enterobacter cloacae complex Meropenem MIKAL <=0.25 ug/mL: Susceptible Enterobacter cloacae complex Piperacillin-tazobactam MIKAL >=128 ug/mL: Resistant Enterobacter cloacae complex Tobramycin MIKAL <=1 ug/mL: Susceptible Enterobacter cloacae complex Trimethoprim-sulfamethoxaz ole MIKLA >=320 ug/mL: Resistant Presley Johnson MD LAB - MICROBIOLOGY O RDERABLES [facility] [address] [place] [phone] * MRSA DNA PCR (06/20/2021 12:49 AM [employer]) [facility] MRSA DNA by PCR Not detected Not detected 06/20/2021 6:59 AM [facility] Microbiology SPECIMEN FROM NASAL FOSSAE / Unknown Collection / Unknown 06/20/2021 12:49 AM [employer] 06/20/2021 1:27 AM [facility] Narrative [facility] - 06/20/2021 6:59 AM [employer] Methicillin-resistant Staphylococcus aureus (MRSA) DNA is not detected (presumed not colonized with MRSA). Presley Johnson MD LAB - MICROBIOLOGY O [facility] [address] [place], [place] [address], [facility] [phone] * ETT LINE PERFORMABLE (06/19/2021 7:56 PM [employer]) Narrative Caroline Clemons MD - 06/19/2021 7:56 PM [employer] Caroline Clemons MD 06/19/2021 7:58 PM Endotracheal Tube Placement: Patient Location: floor. Intubation Event Date/Time: 06/19/2021 7:45 AM Procedure: intubation (92620). Billing/Preprocedure Section: Patient Class: inpatient. ASA Score: 4. Consent: informed consent could not be obtained due to the patient's condition, urgency of situation, and lack of family members to sign consent. Pretreatment Medications Used? Yes Paralytics Used? Yes Paralytics: succinylcholine (ANECTINE) injection, 100 mg. CPR in Progress: No. Procedure Section: Sedation: IV sedation. Indications for Airway Management: respiratory distress and airway protection Procedure pretreatments used? No Induction: standard IV (PROPOFOL 60MG) Patient Position: supine Mask Ventilation: easy. Blade Type: Video Blade Size: 3 Laryngoscopy View: grade 1 (full cords) Intubation Adjuncts: video laryngoscope Tube: ET tube w/aspiration Placement: oral Tube type: cuff - inflated Tube Size (MM): 7.5 Measured From: lips Cuff Inflated With: air Number of Attempts: 1. Placement Verified By: direct visualization and CO2 detector Tube secured with: ETT hobson. Dentition unchanged? Yes Difficult Airway? No. Procedure Start Time: 06/19/2021 7:45 AM. Staff Section Anesthesia Provider: Caroline Clemons MD, Performed the procedure Caroline Clemons MD GENERAL ANESTHESIA O [facility] * IR BILIARY ENDOSCOPY PERC (06/19/2021 4:17 PM [employer]) Anatomical Region Laterality Modality Abdomen X-Ray Angiograph y Narrative 07/01/2021 8:55 PM [employer] History: Multiple gallstones with cristy tube. Not an ideal surgical candidate. Patient here for percutaneous gallstone removal. Operators: 1. Dr. Hall, Attending Physician 2. Dr. Mandel, Attending Physician 3. Dr. Canales, Attending physician Anesthesia: 1. Local anesthesia - 10 mL of 1% lidocaine 2. Monitored anesthesia care initially with conversion to General Anesthesia Procedure: 1. Cholangiogram through the existing cholecystostomy catheter. 2. Removal of cholecystostomy catheter 3. Placement of percutaneous 18F access peelaway sheath into gallbladder 4. Spyglass discover cholecystoscopy through 18F peelaway sheath 5. Percutaneous (EHL) fragmentation followed by retrieval of the gallstones 6. Placement of a new 14F cholecystostomy catheter under fluoroscopic guidance. 7. Cholecystogram through new 14F cholecystostomy catheter Contrast:40?mL of Isovue-370 Fluoroscopy time:?14?min Procedure in detail: The procedure, risk, and possible complications were explained to the patient in detail, and informed consent was obtained.?The patient was placed in a supine position on the angiography table. The external component of the cholecystostomy catheter and the skin around this region were prepped and draped in the usual sterile manner. A finding fastener film of the upper abdomen was obtained which demonstrated the known cholecystostomy catheter in the right upper abdominal quadrant. After anesthetizing with 1% lidocaine at the catheter entry site, contrast was hand injected through the existing catheter and a cholangiogram was obtained, which showed multiple gallstones which were retracted by pulling the drain which allowed the cystic duct to fill. Unfortunately, at this point the patient vomited while under monitored anesthesia care and immediately had to be intubated to protect her airway and converted to general anesthesia. Once stabilized after a few minutes, after clearance from anesthesia, we decided to proceed. Over a wire, the existing 10F ReSolve pigtail drainage catheter was exchanged for a 5F sheath through which an 035 stiff glidewire was advanced into the gallbladder as well as a safety 018 nitrex wire alongside it. 5F vascular sheath was removed and after a series of dilations over the stiffglide wire, an 18F peelaway sheath was advanced into the gallbladder. The spyglass discover scope was advanced into the gallbladder lumen and gallstones were directly visualized and noted to be large. after careful positioning of the spyglass EHL (lithotripsy) probe, gallstones were fragmented. Due to the density of the stones, multiple EHL probes were needed. Once the stone fragments were small enough, they were retrieved via the spyglass basket. given the large stone burden, approximately half of her stones still remained. at this point it was decided to bring her back at a later time to complete the rest of the gallstone retrieval. The 18F peelaway sheath was removed over the wire and a 14F cholecystostomy drain was placed under fluoroscopic guidance to keep the tract open for next procedure. The patient tolerated the rest of the procedure well and was transferred to PACU in stable condition. There were no immediate complications associated with the procedure. Impression:? 1. Cholangiogram through existing cholecystostomy catheter demonstrated multiple large gallstones. 2. Spyglass discover cholecystoscopy 3. Percutaneous gallstone fragmentation and retrieval 4. Exchange of the existing 10F cholecystostomy catheter for a new 14F cholecystostomy catheter under fluoroscopic guidance, as described above. Follow-up: Admit for observation due to aspiration. Start IV antibiotics. The catheter is open for external drainage. Gently flush the catheter with 10 mL of saline three times a day. Return to IR in 3 weeks for repeat procedure to remove remaining stones with larger peelaway sheath. I, Dr. Hall, was present and performed/supervised the entire procedure. *Reading Radiologist: Wendy Hall on 07/01/2021 at 8:55 PM Onofre Canales MD IR ORDERABLES * PTT (06/19/2021 10:52 AM [employer]) Only the most recent of2 resultswithin the time period is included. PTT 29.6 23.0 - 38.4 sec 06/19/2021 11:07 AM [employer] [facility] Blood BLOOD SPECIMEN / Unknown Venipuncture / Unknown 06/19/2021 10:52 AM [employer] 06/19/2021 10:56 AM [employer] Narrative [facility] - 06/19/2021 11:07 AM [employer] Heparin Therapeutic Range for PTT: 69.0 - 110.0 seconds. Wendy Hall MD LAB - COAGULATION ORDERABLES [facility] [address] [place] [address] * PT-INR (06/19/2021 10:52 AM [employer]) Only the most recent of2 resultswithin the time period is included. Pathologist [facility] PT 12.5 12.1 - 14.8 sec 06/19/2021 11:[address] [facility] INR 0.9 0.9 - 1.1 06/19/2021 11:[address] [facility] Blood BLOOD SPECIMEN / Unknown Venipuncture / Unknown 06/19/2021 10:52 AM [employer] 06/19/2021 10:56 AM [employer] Narrative [facility] - 06/19/2021 11:07 AM [facility] Conventional Warfarin Anticoagulant Therapy: INR Reference Range: 2.0-3.0 Intensive Warfarin Anticoagulant Therapy: INR Reference Range: 2.5-3.5 Wendy Hall MD LAB - COAGULATION ORDERABLES Performing Organization Address City/State/[facility] Co de Phone Number [facility] [address] [place] [address] * (ABNORMAL) BASIC METABOLIC PANEL (CALCIUM TOTAL) (06/19/2021 10:51 AM [facility]) Only the most recent of4 resultswithin the time period is included. Pathologist [facility] Glucose 166(H) 70 - 105 mg/dL 06/19/2021 11:[address] [facility] Sodium 138 136 - 145 mmol/L 06/19/2021 11:[address] [facility] Potassium 4.1 3.5 - 5.1 mmol/L 06/19/2021 11:[address] [facility] Chloride 104 98 - 107 mmol/L 06/19/2021 11:[address] [facility] CO2 21(L) 23 - 31 mmol/L 06/19/2021 11:[address] [facility] Calcium 9.3 8.4 - 10.4 mg/dL 06/19/2021 11:[address] [facility] Anion Gap 13 8 - 18 mmol/L 06/19/2021 11:[address] [facility] BUN 16 9.8 - 20.1 mg/dL 06/19/2021 11:[address] [facility] Creatinine 0.68 0.57 - 1.11 mg/dL 06/19/2021 11:11 AM [employer] [facility] eGFR by MDRD >60 >60 mL/min/1.7 3m2 06/19/2021 11:11 AM [employer] [facility] eGFR by MDRD >60 >60 mL/min/1.7 3m2 06/19/2021 11:11 AM [employer] [facility] Blood BLOOD SPECIMEN / Unknown Venipuncture / Unknown 06/19/2021 10:51 AM [employer] 06/19/2021 10:56 AM [employer]ER Wendy Hall MD LAB - CHEMISTRY OR DERABLES Performing Organization Address City/[facility]/ZIP Co de Phone Number [facility] [address] [place] [address] * (ABNORMAL) C DIFFICILE GDH AG + TOXIN A+B (05/19/2021 5:07 PM CDT) [facility] GDH Antigen Positive(A) Negative, Invalid 05/19/2021 10:59 PM CDT [facility] C difficile Toxin A + B Positive(A) Negative, Invalid 05/19/2021 10:59 PM CDT [facility] Interpretation C difficile Positive for toxigenic C. difficile(A) Negative for toxigenic C. difficile 05/19/2021 10:59 PM CDT [facility] Stool STOOL SPECIMEN / Unknown Collection / Unknown 05/19/2021 5:07 PM CDT 05/19/2021 5:13 PM CDT Narrative [facility] - 05/19/2021 10:59 PM CDT Contact Precautions required. For any questions, contact Infection Prevention. Dipak Whitley DO LAB - MICROBIOLOGY O RDERABLES [facility] [address] [place] [address], [facility] [phone] * (ABNORMAL) VANCOMYCIN LEVEL TROUGH (05/18/2021 11:44 AM CDT) Pathologist [facility] Vancomycin Trough 9.3(L) 10.0 - 20.0 ug/mL 05/18/2021 12:13 PM CDT [facility] Blood BLOOD SPECIMEN / Unknown Lab Venipuncture / Unknown 05/18/2021 11:44 AM CDT 05/18/2021 11:55 AM CDT Dipak Whitley DO LAB - CHEMISTRY MIKEY PINA Performing Organization Address [facility]/ZIP Co de Phone Number [facility] [address], [place] [id number] * (ABNORMAL) VANCOMYCIN LEVEL PEAK (05/18/2021 5:12 AM CDT) [facility] Vancomycin Peak 17.3(L) 30.0 - 40.0 ug/mL 05/18/2021 5:58 AM CDT [facility] Blood BLOOD SPECIMEN / Unknown Lab Venipuncture / Unknown 05/18/2021 5:12 AM CDT 05/18/2021 5:21 AM CDT Dipak Whitley DO LAB - CHEMISTRY WESSONBrianna PINA Performing Organization Address [facility] Co de Phone Number [facility] [address], [place] [id number] * XR ABDOMEN KUB (05/15/2021 7:39 PM CDT) Anatomical Region Laterality Modality Abdomen Radiographic Ursula ging 05/15/2021 8:16 PM CDT Impressions 05/15/2021 8:17 PM CDT 1. Gastrostomy tube. 2. Right upper quadrant pigtail catheter *Reading Radiologist: Evie Calderon on 05/15/2021 at 8:17 PM Narrative 05/15/2021 8:17 PM CDT Abdomen, one view portable DATE: 05/15/2021 at 1930 hours INDICATION: G-tube placement. FINDINGS: A gastrostomy tube ends in the midline of the upper abdomen consistent with distal stomach. There is also a pigtail catheter in the right upper quadrant. Scattered gas is noted in the bowel without significant distention. There is some incidental retained contrast material within the urinary bladder. Procedure Note Evie Calderon MD - 05/15/2021 Abdomen, one view portable DATE: 05/15/2021 at 1930 hours INDICATION: G-tube placement. FINDINGS: A gastrostomy tube ends in the midline of the upper abdomen consistent with distal stomach. There is also a pigtail catheter in the right upper quadrant. Scattered gas is noted in the bowel without significant distention. There is some incidental retained contrast material within the urinary bladder. IMPRESSION 1. Gastrostomy tube. 2. Right upper quadrant pigtail catheter *Reading Radiologist: Evie Calderon on 05/15/2021 at 8:17 PM Wendy Hall MD DIAGNOSTIC IMAGING ORDERABLES * VANCOMYCIN LEVEL RANDOM (05/15/2021 5:58 PM CDT) [facility] Vancomycin Random 7.4 ug/mL 05/15/2021 11:55 PM CDT [facility] Blood BLOOD SPECIMEN / Unknown Lab Venipuncture / Unknown 05/15/2021 5:58 PM CDT 05/15/2021 6:29 PM CDT Narrative [facility] - 05/15/2021 11:55 PM CDT No reference range available for random Vancomycin levels. All results interpreted by ordering physician. Wendy Hall MD LAB - CHEMISTRY OR DERABLES Performing Organization Address City/[facility]/ZIP Co de Phone Number [facility] [address] [place] [address] * CULTURE FUNGUS OTHER+FUNGUS SMEAR (05/15/2021 3:19 PM CDT) Culture No fungus isolated MIKAL 06/09/2021 7:12 AM [employer]OR [employer]ER [facility] Fungus Stain No yeast or hyphae seen 06/09/2021 7:12 AM [employer]PER[employer]OR [employer] IN[employer]ER [facility] Microbiology BILE SPECIMEN / Unknown Collection / Unknown 05/15/2021 3:19 PM CDT 05/15/2021 3:56 PM CDT Wendy Hall MD LAB - MICROBIOLOGY ORDERABLES [facility] [address] [place] [address], [facility] [phone] * (ABNORMAL) CULTURE FLUID+GRAM STAIN (05/15/2021 3:19 PM CDT) Culture Light Enterococcus faecalis(AA) MIKAL 05/19/2021 6:07 AM CDT [facility] Gram Stain Light Polymorphonuclear cells MIKAL 05/19/2021 6:07 AM CDT [facility] Gram Stain No organisms seen 021 6:07 AM CDT [facility] Fluid BODY FLUID SPECIMEN / Unknown Collection / Unknown 05/15/2021 3:19 PM CDT 05/15/2021 3:56 PM CDT Narrative Organism Antibiotic Method Susceptibility Enterococcus faecalis Ampicillin MIKAL <=2 ug/mL: Susceptible Enterococcus faecalis Gentamicin 500 MIKAL SYN-S ug/mL: Susceptible Enterococcus faecalis Linezolid MIKAL 2 ug/mL: Susceptible Enterococcus faecalis Streptomycin 1000 MIKAL SYN-S ug/mL: Susceptible Enterococcus faecalis Vancomycin MIKAL 1 ug/mL: Susceptible Comment: Streptomycin Synergy susceptible predicts synergy between ampicillin, penicillin, or vancomycin plus streptomycin when isolates are susceptible to these agents. Combination therapy with ampicillin, penicillin or vancomycin(for susceptible strains) plus an aminoglycoside is usually indicated for serious enterococcal infections such as endocarditis, UNLESS high-level resistance to both gentamicin and streptomycin is documented. Gentamicin Synergy susceptible predicts synergy between ampicillin, penicillin, or vancomycin plus gentamicin when isolates are susceptible to these agents. Combination therapy with ampicillin, penicillin, or vancomycin (for susceptible strains) plus an aminoglycoside is usually indicated for serious enterococcal infections such as endocarditis UNLESS high-level resistance to both gentamicin and streptomycin is documented. Wendy Hall MD LAB - MICROBIOLOGY ORDERABLES [facility] [address] [place] [address], [facility] [phone] * CULTURE ANAEROBE (05/15/2021 3:19 PM CDT) Culture No anaerobic organisms isolated MIKAL 05/20/2021 11:07 AM CDT [facility] Microbiology BILE DUCT PART / Unknown Collection / Unknown 05/15/2021 3:19 PM CDT 05/15/2021 3:56 PM CDT Wendy Hall MD LAB - MICROBIOLOGY ORDERABLES [facility] [address] [place] [address], [facility] [phone] * IR GALLBLADDER DRAINAGE (05/15/2021 3:18 PM CDT) Anatomical Region Laterality Modality Abdomen X-Ray Angiograph y 05/26/2021 4:42 PM CDT Narrative 05/26/2021 5:03 PM CDT History: History of gallstones s/p cholecystostomy at OSH. Last drain check in 03/14/21. Reports leakage around catheter site. Here for Drain check/possible replacement/possible percutaneous spyglass gallstone removal Operators: 1. Dr. Hall, Attending Physician 2. Dr. Mandel, Attending Physician Anesthesia: 1. Local anesthesia - 10 mL of 1% lidocaine 2. Monitored anesthesia care Procedure: 1. Limited ultrasound evaluation of the right upper quadrant. 2. Ultrasound-guided placement of an 10F cholecystostomy catheter. Procedure in detail: The procedure, risk, and possible complications were explained to the patient in detail, and informed consent was obtained. The patient was placed in a supine position on the ultrasound table and a limited multiplanar ultrasound evaluation of the right upper quadrant was performed, demonstrating gallbladder with thickened wall. Existing cholecystostomy tube noted to be retracted on finding fastener radiograph. This was confirmed with contrast hand injection which showed contrast flushing outside the body and non-opacification of the gallbladder lumen. Attempt was made to cannulate the existing tract, however this was unsuccessful as it may have closed down since her last imaging. As a result, decision was made to obtain new cholecystostomy closer to the fundus. The marked site and skin around the region of interest was prepped and draped in sterile fashion. Local anesthesia was provided with % Lidocaine. A 5 [place] One-Step coaxial needle system was advanced in stages under real time ultrasound guidance. Upon aspiration of fluid, the outer-sheath was advanced within the gallbladder lumen. A 0.035 inch guidewire was looped within the gallbladder and following series of dilatation/exchanges, a 10 [place] ReSolve pigtail drainage catheter was advanced. The initial aspirate was purulent bilious, and approximately 10 mL of fluid were drained during the procedure. An appropriate amount of aspirate was sent for necessary laboratory work up. Final imaging showed the catheter in satisfactory position. The patient tolerated the procedure well and was transferred to the holding area in stable condition. There were no immediate complications associated with the procedure. Impression: Successful ultrasound-guided placement of an 10F cholecystostomy catheter, as described above. The initial aspirate was purulent bilious, and approximately 10 mL of fluid were drained during the procedure. Follow up: The catheter is open for external drainage. Gently flush the catheter with 10 mL of saline three times a day. All cholecystostomy catheters should remain in place for a minimum of 6weeks for tract maturation. The patient will be brought back for attempt at percutaneous gallstone removal. Will monitor overnight due to new access and manipulation of biliary system.? I, Dr. Hall, was present and performed/supervised the entire procedure. *Reading Radiologist: Wendy Hall on 05/26/2021 at 5:03 PM Procedure Note Wendy Hall MD - 05/26/2021 History: History of gallstones s/p cholecystostomy at OSH. Last drain check in 03/14/21. Reports leakage around catheter site. Here for Drain check/possible replacement/possible percutaneous spyglass gallstone removal Operators: 1. Dr. Hall, Attending Physician 2. Dr. Mandel, Attending Physician Anesthesia: 1. Local anesthesia - 10 mL of 1% lidocaine 2. Monitored anesthesia care Procedure: 1. Limited ultrasound evaluation of the right upper quadrant. 2. Ultrasound-guided placement of an 10F cholecystostomy catheter. Procedure in detail: The procedure, risk, and possible complications were explained to the patient in detail, and informed consent was obtained. The patient was placed in a supine position on the ultrasound table and a limited multiplanar ultrasound evaluation of the right upper quadrant was performed, demonstrating gallbladder with thickened wall. Existing cholecystostomy tube noted to be retracted on finding fastener radiograph. This was confirmed with contrast hand injection which showed contrast flushing outside the body and non-opacification of the gallbladder lumen. Attempt was made to cannulate the existing tract, however this was unsuccessful as it may have closed down since her last imaging. As a result, decision was made to obtain new cholecystostomy closer to the fundus. The marked site and skin around the region of interest was prepped and draped in sterile fashion. Local anesthesia was provided with % Lidocaine. A 5 [place]ran One-Step coaxial needle system was advanced in stages under real time ultrasound guidance. Upon aspiration of fluid, the outer-sheath was advanced within the gallbladder lumen. A 0.035 inch guidewire was looped within the gallbladder and following series of dilatation/exchanges, a 10 [place]orran ReSolve pigtail drainage catheter was advanced. The initial aspirate was purulent bilious, and approximately 10 mL of fluid were drained during the procedure. An appropriate amount of aspirate was sent for necessary laboratory work up. Final imaging showed the catheter in satisfactory position. The patient tolerated the procedure well and was transferred to the holding area in stable condition. There were no immediate complications associated with the procedure. Impression: Successful ultrasound-guided placement of an 10F cholecystostomy catheter, as described above. The initial aspirate was purulent bilious, and approximately 10 mL of fluid were drained during the procedure. Follow up: The catheter is open for external drainage. Gently flush the catheter with 10 mL of saline three times a day. All cholecystostomy catheters should remain in place for a minimum of 6weeks for tract maturation. The patient will be brought back for attempt at percutaneous gallstone removal. Will monitor overnight due to new access and manipulation of biliary system.? I, Dr. Hall, was present and performed/supervised the entire procedure. *Reading Radiologist: Wendy Hall on 05/26/2021 at 5:03 PM Bernard Mandel MD IR ORDERABLES * PT-INR [facility] (03/14/2021 7:04 AM T) PT 13.0 12.1 - 14.8 Seconds 03/14/2021 7:32 AM T [facility] INR 1.0 See Comment 03/14/2021 7:32 AM [facility] Comment:The suggested therap eutic range for standard coumadin (warfarin) therapy is an INR of 2.0-3.0. For high-risk patients (Mechanical Mitral Valve Prosthesis, etc.), the suggested prophylactic therapeutic range is an INR of 2.5-3.5. Blood BLOOD SPECIMEN / Unknown Venipuncture / Unknown 03/14/2021 7:04 AM CDT 03/14/2021 7:17 AM CDT Panchito Yung MD LAB - COAGULATION OR DERABLES [facility] [address] [place] [address], [facility] [phone] Care Teams Care Support Representative Relationship Specialty Start Date End Date Monalisa Balderas MD [address] [place] [address] [place] [address] PCP - General Internal Medicine 05/15/21
--- OUTSIDE RECORDS SUMMARY | 2024-09-11 12:05 | XMS_ITS | Referral Summary ---
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 Name Role Phone Unknown, Notinfile Primary Care Provider Unavail able Allergies No known active allergies Medications aspirin 81 mg enteric coated tablet Administer per tube 81 mg daily Active atorvastatin (LIPITOR) 80 mg tablet Administer per tube 80 mg nightly Active bisacodyL (DULCOLAX) 10 mg suppositoryIndi cations:constip ation Insert 10 mg into the rectum daily as needed for constipation Active famotidine (PEPCID) 20 mg tablet Administer per tube 20 mg 2 (two) times a day Active FLUoxetine (PROzac) 20 mg capsule Administer per tube 20 mg 2 (two) times a day Active albuterol HFA (PROVENTIL HFA,VENTOLIN HFA,PROAIR HFA) 90 mcg/actuation inhaler Inhale 2 puffs every 6 (six) hours as needed for wheezing Active amLODIPine (NORVASC) 5 mg tablet Administer per tube 5 mg daily Active loratadine 10 mg capsule Administer 1 capsule per feeding tube daily Active losartan (COZAAR) 100 mg tablet Administer per tube 100 mg daily Active HYDROcodone-kera taminophen (NORCO) 5-325 mg per tabletIndicatio ns:Pain Administer per tube 1 tablet 2 (two) times a day as needed Active cholecalciferol (VITAMIN D-3) 25 mcg (1,000 unit) tablet Administer per tube 1,000 Units daily Active carvediloL (COREG) 3.125 mg tablet Administer per tube 4 tablets (12.5 mg total) 2 (two) times a day with meals Active miconazole 2 % powder Apply topically 2 (two) times a day Apply over the perineal region 70 g 06/30/202 1 Active Active Problems Problem Noted Date Diagnosed Date Acute cholecystitis 01/24/2021 Assessment & Plan (01/28/2021 5:04 PM CDT): -Pt initially presented to OSH on 01/18 with N/V with CT showing findings c/w acute cholecystitis. She is s/p percutaneous cholecystostomy tube placement on 01/20, now with persistent bloody output from drain and transferred to [facility] for further management. -Initial OSH CT uploaded to [facility] as reference image -Repeat CT A/P with contrast given persistent bleeding on exam, no evidence of hematoma or explanation for bleeding. -Suspect hemorrhagic cholecystitis. Hb remains stable, no hemodynamic instability. -IR c/s for drain check 01/27. Drain left as it is, as appears to be functioning well and is in place. -[facility] surgery c/s plan OP cholecystectomy in the future -Continue IV Zosyn (01/24-c here). Per OSH notes, GB fluid cultures obtained when drain placed show NGTD. Follow up OSH cultures and de-escalate abx as OSH cx results remain NGTD. Afebrile, HD stable. -monitor serial blood counts, no leukocytosis. -Resumed TF and monitor tolerance. -No family contact listed, SW consulted for assistance. CM tracking down prior living situation, pending info for discharge. -anticipate transition to PO abx soon. -PT/OT/SW re dispo planning Assessment & Plan (01/27/2021 3:29 PM CDT): -Pt initially presented to OSH on 01/18 with N/V with CT showing findings c/w acute cholecystitis. She is s/p percutaneous cholecystostomy tube placement on 01/20, now with persistent bloody output from drain and transferred to [facility] for further management. -Initial OSH CT uploaded to [facility] as reference image -Repeat CT A/P with contrast given persistent bleeding on exam, no evidence of hematoma or explanation for bleeding. -Suspect hemorrhagic cholecystitis. Hb remains stable, no hemodynamic instability. -IR c/s for drain check 01/27. -[facility] surgery c/s plan OP cholecystectomy in the future -Continue IV Zosyn (01/24-c here). Per OSH notes, GB fluid cultures obtained when drain placed show NGTD. Follow up OSH cultures and de-escalate abx as OSH cx results remain NGTD. Afebrile, HD stable. -monitor serial blood counts, no leukocytosis. -Resumed TF and monitor tolerance. -No family contact listed, SW consulted for assistance. CM tracking down prior living situation, pending info for discharge. -anticipate transition to PO abx soon. -PT/OT/SW re dispo planning Assessment & Plan (01/26/2021 12:48 PM CDT): -Pt initially presented to OSH on 01/18 with N/V with CT showing findings c/w acute cholecystitis. She is s/p percutaneous cholecystostomy tube placement on 01/20, now with persistent bloody output from drain and transferred to [facility] for further management. -Initial OSH CT uploaded to [facility] as reference image -Repeat CT A/P with contrast given persistent bleeding on exam, no evidence of hematoma or explanation for bleeding. -IR c/s for drain check, possible Wednesday. -[facility] surgery c/s re: ?exploratory lap, possible cholecystectomy in the future -Continue IV Zosyn (01/24-c here). Per OSH notes, GB fluid cultures obtained when drain placed show NGTD. Follow up OSH cultures and de-escalate abx pending OSH cx results, remain NGTD. Afebrile, HD stable. -monitor serial blood counts, no leukocytosis. -Resume TF and monitor tolerance -No family contact listed, SW consulted for assistance. -anticipate transition to PO abx soon. -PT/OT/SW re dispo planning Assessment & Plan (01/25/2021 11:34 AM CDT): -Pt initially presented to OSH on 01/18 with N/V with CT showing findings c/w acute cholecystitis. She is s/p percutaneous cholecystostomy tube placement on 01/20, now with persistent bloody output from drain and transferred to [facility] for further management. -Initial OSH CT uploaded to [facility] as reference image -Repeat CT A/P with contrast given persistent bleeding on exam, no evidence of hematoma or explanation for bleeding. -IR c/s for drain check -[facility] surgery c/s re: ?exploratory lap, possible cholecystectomy in the future -Continue IV Zosyn (01/24-c here). Per OSH notes, GB fluid cultures obtained when drain placed show NGTD. Follow up OSH cultures and de-escalate abx pending cx results. Afebrile, HD stable. -monitor serial blood counts Assessment & Plan (01/24/2021 10:54 PM CDT): -Pt initially presented to OSH on 01/18 with N/V with CT showing findings c/w acute cholecystitis. She is s/p percutaneous cholecystostomy tube placement on 01/20, now with persistent bloody output from drain and transferred to [facility] for further management. -Initial OSH CT uploaded to [facility] as reference image, will obtain repeat CT A/P with contrast given persistent bleeding -IR c/s for drain check -[facility] or other surgery service c/s re: possible cholecystectomy in the future -Continue Zosyn for now. Per OSH notes, GB fluid cultures obtained when drain placed show NGTD. Follow up OSH cultures and de-escalate abx pending cx results. Bleeding 01/24/2021 Assessment & Plan (01/28/2021 5:05 PM CDT): -Bleeding from PCT, IR and HBSurg consulted. Initially NPO (holding TF per Gtube) and continued IVFs. No coagulopathy -CT abd/p w01/25 here w/ acute cholecystitis, no bleeding source identified, no hematoma or abscess. PCT appears to be in proper place. -IR tube check 01/27 and tube functioning well -Monitoring serial blood counts, of note, Hgb has remained stable as compared to OSH labs. Assessment & Plan (01/27/2021 3:30 PM CDT): -Bleeding from PCT, IR and HBSurg consulted. Initially NPO (holding TF per Gtube) and continued IVFs. No coagulopathy -CT abd/p w01/25 here w/ acute cholecystitis, no bleeding source identified, no hematoma or abscess. PCT appears to be in proper place. -Await IR tube check 01/27. -Monitoring serial blood counts, of note, Hgb has remained stable as compared to OSH labs. Assessment & Plan (01/26/2021 12:50 PM CDT): -Bleeding from PCT, IR and HBSurg consulted. -initially NPO (holding TF per Gtube) and cont IVFs -No coagulopathy -CT abd/p w01/25 here w/ acute cholecystitis, no bleeding source identified, no hematoma or abscess. PCT appears to be in proper place. -Await IR f/u re need for tube check 01/27. -Monitoring serial blood counts, of note, Hgb has remained stable as compared to OSH labs. F/u Hb pending Assessment & Plan (01/25/2021 11:35 AM CDT): -Bleeding from PCT, IR and HBSurg consulted. -NPO (holding TF per Gtube) and cont IVFs -No coagulopathy -CT abd/p w01/25 here w/ acute cholecystitis, no bleeding source identified, no hematoma or abscess. -Of note, Hgb has remained stable as compared to OSH labs. Monitor serial blood counts. Assessment & Plan (01/24/2021 10:54 PM CDT): -Bleeding from PCT and work-up/plan as noted above -Of note, Hgb has remained stable as compared to OSH labs COPD (chronic obstructive pulmonary disease) Assessment & Plan (01/28/2021 5:05 PM CDT): Chronic COPD, on RA. Continue albuterol PRN. Ongoing tobacco abuse? S/p Tobacco cessation counseling. Assessment & Plan (01/27/2021 3:34 PM CDT): Chronic COPD, on RA. Continue albuterol PRN. Ongoing tobacco abuse? S/p Tobacco cessation counseling. Assessment & Plan (01/26/2021 12:50 PM CDT): Chronic COPD, on RA. Continue albuterol PRN. Ongoing tobacco abuse? -Tobacco cessation counseling -Nicotine patch Assessment & Plan (01/25/2021 11:37 AM CDT): Chronic COPD, on RA. Continue albuterol PRN. Ongoing tobacco abuse. -Tobacco cessation counseling -Nicotine patch Assessment & Plan (01/24/2021 10:54 PM CDT): -Continue albuterol PRN -Tobacco cessation Hypertension 01/24/2021 Assessment & Plan (01/28/2021 5:07 PM CDT): -Held losartan, amlodipine initially in setting of acute cholecystitis & bleeding. Continued on Coreg 3.125 BID. Restarted losartan for SBP trending up to 160's. Will resume amlodipine as well as hypertensive and increased coreg dose to 12.5 mg . Assessment & Plan (01/27/2021 3:36 PM CDT): -Hold losartan, amlodipine for now in setting of acute cholecystitis & bleeding. Continues Coreg 3.125 BID & tolerated. Restart losartan for SBP trending up to 160's. Monitor for additional adjustments as needed. . Assessment & Plan (01/26/2021 12:51 PM CDT): -Hold losartan, amlodipine for now in setting of acute cholecystitis & bleeding Restart as needed. Continue Coreg 3.125 BID. Assessment & Plan (01/25/2021 11:38 AM CDT): -Hold losartan, amlodipine for now in setting of acute cholecystitis & bleeding Restart as needed. Continue Coreg 3.125 BID. Assessment & Plan (01/24/2021 10:56 PM CDT): -Hold losartan, amlodipine for now in setting of acute keaton, bleeding and restart as needed. Will continue Coreg 3.125 BID. Stroke 01/24/2021 Assessment & Plan (01/28/2021 5:07 PM CDT): -Hx of CVA (several months ago?) with R-sided weakness, expressive aphasia, and dysphagia s/p G-tube. Continue ASA 81, atorvastatin 80, HTN management. Pt on fall precautions. PT/OT/Speech therapy. Anticipate DC to prior living arrangement today, unfortunately CM in process of finding out that information from prior OSH. Assessment & Plan (01/27/2021 3:38 PM CDT): -Hx of CVA (several months ago?) with R-sided weakness, expressive aphasia, and dysphagia s/p G-tube. Continue ASA 81, atorvastatin 80, HTN management. Pt on fall precautions. PT/OT/Speech therapy. Anticipate DC to prior living arrangement today, unfortunately CM in process of finding out that information from prior OSH. Assessment & Plan (01/26/2021 12:51 PM CDT): -Hx of CVA (several months ago?) with R-sided weakness, expressive aphasia, and dysphagia s/p G-tube -Continue ASA 81, atorvastatin 80 -fall precautions PT/OT/Speech therapy Assessment & Plan (01/25/2021 11:38 AM CDT): -Hx of CVA (several months ago?) with R-sided weakness, expressive aphasia, and dysphagia s/p G-tube -Continue ASA 81, atorvastatin 80 -fall precautions PT/OT/Speech therapy Assessment & Plan (01/24/2021 10:58 PM CDT): -Hx of CVA (several months ago?) with R-sided weakness, expressive aphasia, and dysphagia s/p G-tube -Continue ASA 81, atorvastatin 80 G tube feedings ([facility]) 01/24/2021 Assessment & Plan (01/28/2021 5:08 PM CDT): -Initially kept NPO for possible procedure. 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 OP regimen is Glucerna 360mL QID with 180mL FWF with each feed. Resumed TF and tolerated. Assessment & Plan (01/27/2021 3:35 PM CDT): -Initially Keep NPO for possible procedure, TF orders placed on hold. 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 OP regimen is Glucerna 360mL QID with 180mL FWF with each feed. Resumed and tolerated. Assessment & Plan (01/26/2021 12:51 PM CDT): -Initially Keep NPO for possible procedure, TF orders placed on hold. 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 -OP regimen is Glucerna 360mL QID with 180mL FWF with each feed. -Resume as tolerated. Assessment & Plan (01/25/2021 11:37 AM CDT): -Keep NPO for possible procedure, TF orders placed on hold. 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 -OP regimen is Glucerna 360mL QID with 180mL FWF with each feed. Assessment & Plan (01/24/2021 10:59 PM CDT): -Keep NPO for possible IR procedure tomorrow -Was receiving continuous TF at OSH, although outpt regimen is Glucerna 360mL QID with 180mL FWF with each feed. Social History Tobacco Use Types Packs/Day Years Used Date Smoking Tobacco: Every Day Cigarettes Smokeless Tobacco: Never Alcohol Use Standard Drinks/Week Comments Not Currently 0 (1 standard drink = 0.6 oz pur e alcohol) Personal Safety Answer Date Recorded Getting School Help Needed Not on file 10/02 Comments Unknown Sex and Gender Information Value Date Recorded Sex Assigned at Not on file Legal Sex Female 10:27 AM CDT Gender Identity Not on file Sexual Orientation Not on file Last Filed Vital Signs Vital Sign Reading Time Taken Comments Blood Pressure 159/102 05/24/2021 6:16 PM CDT Pulse 96 05/24/2021 6:16 PM CDT Temperature 36.4 C (97.6 F) 05/24/2021 11:25 AM CDT Respiratory Rate 20 05/24/2021 6:16 PM CDT Oxygen Saturation 96% 05/24/2021 6:16 PM CDT Inhaled Oxygen Concentration - - Weight 56.7 kg (125 lb) 05/24/2021 11:25 AM CDT Height 170.7 cm (5' 7.2 ) 01/24/2021 7:25 PM CDT Body Mass Index 19.46 01/24/2021 7:25 PM CDT Plan of Treatment Not on file Insurance [employer] HMO [employer] Advance Directives For more information, please contact: [phone] * Full Code (Latest Code Status on File) Date Activated Date Inactivated Comments 01/24/2021 9:08 PM 01/29/2021 5:17 PM Care Teams Light Rail Vehicle Operator Relationship Specialty Start Date End Date Unknown, Notinfile PCP - General 01/24/21
--- OUTSIDE RECORDS SUMMARY | 2024-09-11 12:05 | XMS_ITS | Clinical Summary ---
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 -Initial OSH CT uploaded [...] bloody output from drain and transferred to [facility] for further management. -Initial OSH CT uploaded [...] bloody output from drain and transferred to [facility] for further management. -Initial OSH CT uploaded [...] bloody output from drain and transferred to [facility] for further management. -Initial OSH CT uploaded [...] bloody output from drain and transferred to [facility] for further management. 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 OP regimen is Glucerna 360mL QID with 180mL FWF with each feed. Resumed TF and tolerated. Assessment & Plan (01/27/2021 3:35 PM CDT): -Initially Keep NPO for possible procedure, TF orders placed on hold. 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 OP regimen is Glucerna 360mL QID with 180mL FWF with each feed. Resumed and tolerated. Assessment & Plan (01/26/2021 12:51 PM CDT): -Initially Keep NPO for possible procedure, TF orders placed on hold. 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 -OP regimen is Glucerna 360mL QID with 180mL FWF with each feed. -Resume as tolerated. Assessment & Plan (01/25/2021 11:37 AM CDT): -Keep NPO for possible procedure, TF orders placed on hold. 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 -OP regimen is Glucerna 360mL QID with 180mL FWF with each feed. Assessment & Plan (01/24/2021 10:59 PM CDT): -Keep NPO for possible IR procedure tomorrow -Was receiving continuous TF at OSH, although outpt regimen is Glucerna 360mL QID with 180mL FWF with each feed. Surgical History Surgery Date Site/Laterality Comments GALLBLADDER DRAINAGE IR CHOLANGIOGRAM THROUGH EXISTING CATHETER 01/27/2021 N/A Medical History Medical History Date Comments COPD (chronic obstructive pulmonary disease) (HC C) Hypertension Depression Stroke (HCC) Social History Tobacco Use Types Packs/Day Years [...] on file Sexual Orientation Not on file Obstetrics History Last Filed Vital Signs Vital Sign Reading [...] Advance Directives For more information, please contact: [phone] * Full Code (Latest Code Status on File) Date Activated Date Inactivated Comments 01/24/2021 9:08 PM 01/29/2021 5:17 PM Care Teams Granite Polisher Relationship Specialty Start Date End Date Unknown, Notinfile PCP - General 01/24/21
--- OUTSIDE RECORDS SUMMARY | 2024-09-11 12:05 | XMS_ITS | Clinical Summary ---
Author Organization [facility] Address [address] [facility] [place] [address] Care Team Providers Care Lcsw Name Role Phone Monalisa Balderas MD Primary Care Provider [phone] Source Comments [facility],non-owned Affiliates and Associated Physician Practices is amultiple site organization consisting of ambulatory clinics and hospital sitesin [place], [place], [place] and [place]. This disclosure is being madepursuant to the Care Everywhere program and may not contain all information available regarding this patient. Last updated 18.[facility] Allergies No known active allergies Medications * Be aware that medications may not be up to date on this document. Alwaysverify current medications with the patient. Medication Sig Dispensed Refills Start Date End Date Status albuterol HFA (VENTOLIN HFA) 108 (90 Base) MCG/ACT inhaler Inhale 2 puffs by mouth every 6 hours as needed for Shortness of Breath Active atorvastatin (LIPITOR) 80 MG tablet 80 mg by Enteral Tube route once daily 02/21/2021 Active Cholecalciferol 25 MCG (1000 UT) 1,000 Units by Enteral route once daily Active diclofenac sodium (SOLARAZE) 3 % gel Apply to affected area once daily -- apply to hips Active FLUoxetine (PROZAC) 20 MG capsule 20 mg by Enteral Tube route 2 times daily 02/21/2021 Active loratadine (CLARITIN) 10 MG tablet 10 mg by Enteral Tube route once daily Active miconazole (LOTRIMIN AF) 2 % powder Apply to affected area 2 times daily -- apply to perineal region 01/29/2021 Active acetaminophen (TYLENOL) 325 MG tablet Take 650 mg by mouth every 4 hours as needed for Fever or Pain Maximum allowable Acetaminophen amount = 4 Grams (4000 mg) / 24 hours. Active ascorbic acid (VITAMIN C) 500 MG tablet 500 mg by Per G Tube route once daily Active ferrous sulfate 325 (65 FE) MG tablet 325 mg by Per G Tube route 2 times daily with morning and evening meal Active ondansetron (ZOFRAN) 4 MG tablet 4 mg by Per G Tube route every 8 hours as needed for Nausea/Vomiting Active lansoprazole (PREVACID) 3 MG/ML (FIRST-Kit) 2.5 mL by Enteral Tube route daily before breakfast 07/01/2021 Active clotrimazole 1% cream - hydrocortisone 1 % Cream 50:50 CREA Apply to affected area 2 times daily as needed Active hydrOXYzine HCl (ATARAX) 25 MG tablet 12.5 mg by Enteral Tube route every 6 hours as needed for Itching Active aspirin (ASPIRIN) 81 MG chew tablet 81 mg by Enteral Tube route once daily Active bisacodyl (DULCOLAX) 10 MG suppository Insert 10 mg into the rectum once daily as needed for Constipation (if no results from Milk of Magnesia) Active magnesium citrate solution 396 mL by Enteral Tube route once daily as needed for Constipation (if no results from enema. Call MD if no BM 1 hour after completion of bowel protocol.) Active sodium phosphate rectal (FLEET) 7-19 GM/118ML enema Insert 1 enema into the rectum once daily as needed for Constipation (if no results 1 day after suppository) Active hydrocortisone (HYTONE) 1 % cream Apply to affected area 2 times daily -- apply to rash on chest/neck until healed Active magnesium hydroxide (MILK OF MAGNESIA) 400 MG/5ML suspension Take 30 mL by mouth as needed for Constipation (if not BM in 3 days) Active Active Problems Problem Noted Date Diagnosed Date Cholecystostomy tube dysfunction 10/27/2021 Aspiration of vomit 06/19/2021 Severe sepsis 06/19/2021 Septic shock 06/19/2021 Calculus of gallbladder with chronic cholecystitis with obstruction 05/15/2021 Gall stones 05/15/2021 Immunizations Name Administration Dates Next Due Invidio primary monoval ent 12+ yr 0.3mL Purple cap 06/30/2021 INFLUENZA VACCINE, QUADR. (A FLURIA, FLUZONE QUADRIVALENT; 6MO+) (IIV4) 07/11/2019,04/16/2015 INFLUENZA VACCINE, QUADR. 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 Weight 47.1 kg (103 lb 12.8 oz) 10/27/2021 6:43 AM CDT Height 160 cm (5' 2.99 ) 10/27/2021 6:43 AM CDT Body Mass Index 18.39 10/27/2021 6:43 AM CDT Plan of Treatment Health Maintenance Due Date Last Done Comments COLOGUARD (AGES 45-75) - COL ON CA SCREENING 1961 COLON MONITORING 1961 COLONOSCOPY - COLON CA SCREENING 1961 CT COLONOGRAPHY - COLON CA SCREENING 1961 Colorectal Cancer Screening 1961 FIT - COLON CA SCREENING 1961 FLEX SIG - COLON CA SCREENING 1961 MAMMOGRAM 1961 Opioid Medication Agreement - Annual 1961 PAP SMEAR 1961 HIV SCREENING 1976 HEPATITIS C SCREENING 04/22/1979 DTAP/TDAP/TD VACCINES (1 - Tdap) 1980 PNEUMOCOCCAL VACCINE 50+ (1 of 2 - PCV) 1980 PNEUMOCOCCAL VACCINE (1 of 2 - PCV) 1980 ZOSTER VACCINE (1 of 2) 2011 COVID-19 VACCINE (3 - 2023-2 5 season) 2024 07/29/2021, 06/30/2021 INFLUENZA VACCINE (#1) 2024 , 07/11/2019, 04/16/2015 DEPRESSION SCREENING 08/02/2024 MEDICARE AWV CALENDAR YEAR 2024 Respiratory Syncytial Virus (RSV) Vaccine Pt: or over 60 yrs (1 - 1-dose 75+ series) 2036 HEPATITIS B VACCINE Aged Out No longe r eligible based on patient's age to complete this topic HIB VACCINE Aged Out No longer eligi ble based on patient's age to complete this topic HPV VACCINE Aged Out No longer eligi ble based on patient's age to complete this topic MENINGOCOCCAL (Group B) VACCINE Aged Out No longer eligible b ased on patient's age to complete this topic MENINGOCOCCAL VACCINE Aged Out No malachi julien eligible based on patient's age to complete this topic Additional Health Concerns Infection Onset Date Last Indicated C DIFF 05/19/2021 05/19/2021 Advance Directives * Full Code (Latest Code Status on File) Date Activated Date Inactivated Comments 10/27/2021 7:50 AM 10/31/2021 3:10 PM * Full Code Date Activated Date Inactivated Comments 06/23/2021 1:24 PM 06/30/2021 7:20 PM * Full Code Date Activated Date Inactivated Comments 05/15/2021 5:48 PM 05/22/2021 7:52 PM Care Teams Lcsw Relationship Specialty Start Date End Date Monalisa Balderas MD [address] [place] [address] [place] [id number] PCP - General Internal Medicine 05/15/21
--- OUTSIDE RECORDS SUMMARY | 2024-09-11 12:05 | XMS_ITS | Clinical Summary ---
Author Organization [facility] Address [facility] [place] [address] Care Team Providers Care Heel Lift Gouger Name Role Phone None, Provider MD Primary Care Provider Unavaila ble Allergies No known active allergies Medications budesonide-form oterol 80-4.5 MCG/ACT inhaler Inhale 2 puffs into the lungs 2 (two) times daily. Active albuterol sulfate HFA 108 (90 Base) MCG/ACT inhaler Inhale 2 puffs into the lungs every 6 (six) hours as needed for Wheezing. Active clonazePAM 0.5 MG tabletIndicatio ns:G tube feedings ([facility]) 1 tablet (0.5 mg total) by Per G Tube route 2 (two) times daily as needed for Anxiety. 90 tablet 11/22/2020 Active loratadine 10 MG tablet 1 tablet (10 mg total) by Per G Tube route daily. 30 tablet 11/22/2020 Active FLUoxetine 20 MG capsule 1 capsule (20 mg total) by Per G Tube route daily. 30 capsule 11/22/2020 Active losartan 100 MG tablet 1 tablet (100 mg total) by Per G Tube route daily. 30 tablet 11/22/2020 Active HYDROcodone-kera taminophen 7.5-325 MG tabletIndicatio ns:Chronic Pain 1 tablet by Per G Tube route 2 (two) times daily as needed for Pain. Indications: Chronic Pain 20 tablet 11/22/2020 Active Active Problems Problem Noted Date Diagnosed Date Right sided weakness 11/07/2020 Social History Tobacco Use Types Packs/Day Years Used Date Smoking Tobacco: Every Day Cigarettes 0.5 15 Smokeless Tobacco: Never Tobacco Cessation:Ready to Q uit: No; Counseling Given: No Alcohol Use Standard Drinks/Week Comments Never 0 (1 standard drink = 0.6 oz pur e alcohol) AUDIT-C Answer Date Recorded Q1: How often do you have a drink containing alc ohol? Never 11/07/2020 Average Number of Drinks Not on file 021 Frequency of Binge Drinking Not on file 03/2021 Comments No Sex and Gender Information Value Date Recorded Sex Assigned at Not on file Legal Sex Female 3:54 PM CDT Gender Identity Not on file Sexual Orientation Not on file Last Filed Vital Signs Vital Sign Reading Time Taken Comments Blood Pressure 148/84 11/22/2020 3:03 PM CDT Pulse 115 11/22/2020 3:03 PM CDT Temperature 36.5 C (97.7 F) 11/22/2020 3:03 PM CDT Respiratory Rate 18 11/22/2020 3:03 PM CDT Oxygen Saturation 97% 11/22/2020 3:03 PM CDT Inhaled Oxygen Concentration - - Weight 62 kg (136 lb 11 oz) 11/22/2020 3:44 AM C DT Height 160 cm (5' 3 ) 11/07/2020 4:02 PM CDT Body Mass Index 24.21 11/07/2020 4:02 PM CDT Plan of Treatment Health Maintenance Due Date Last Done Comments Cervical Cancer Screening Pa p Smear (Age 30 to 64) Every 3 Years 1961 Colorectal Cancer Screening Colonoscopy (10 Years) 1961 Annual Physical 1964 Pneumococcal Vaccine: Pediat rics (0 to 5 Years) and At-Risk Patients (6 to 64 Years) (1 of 2 - PCV) 1967 Hepatitis C 1979 DTaP, Tdap and Td Vaccines ( 1 - Tdap) 1980 Cervical Cancer Screening Pa p with HPV Testing (Age 30 to 64) Every 5 Years 1991 Cervical Cancer Screening with HPV 1991 Mammogram Screening 2001 Zoster Vaccines (1 of 2) 2011 COVID-19 Vaccine ( - 2023-2 5 season) 2024 Influenza Adult (#1) 2024 RSV Immunization or 60+ Years (1 - 1-dose 75+ series) 2036 Meningococcal B Vaccine Aged Out No l onger eligible based on patient's age to complete this topic Meningococcal Vaccine Aged Out No malachi julien eligible based on patient's age to complete this topic RSV Immunizations Under 20 Months Aged Out No longer eligible based on patient's age to complete this topic Goals Goal Patient Goal Type Associated Problems Recent Progress Patient-Stated? 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
--- OUTSIDE RECORDS SUMMARY | 2024-09-11 12:05 | XMS_ITS | CONTINUITY OF CARE DOCUMENT ---
Author Name daniel leighevelyne Address Unknown Organization [facility] Address [address] [place] [address] Phone [phone] Care Team Providers Care Delivery Crew Member Name Role Phone Alfredo Soto MD Unavailable [phone] BRANDI BANKS Unavailable BRANDI BANKS Unavailable [phone] PROBLEMS Condition Status Date Provider Notes SAIMA active Alfredo Soto MD Shortness of breath active Alfredo Soto MD LEG PAIN active Eladio Aviles MD ENCOUNTERS Date Type Provider Location Encounter Diagnosis - In-person encounter Office Visit Alfredo Soto MD [place] [facility] Shortness of breathOSA - In-person encounter Office Visit Alfredo Soto MD [place] - In-person encounter Office Visit Eladio Aviles MD [place] LEG PAIN VITAL SIGNS Date Observation Value Provider blood pressure, diastolic, left arm 88 mm [Hg] Areli Trae blood pressure, systolic, left arm 129 mm [Hg] Areli Trae blood pressure, diastolic, right arm 86 m m[Hg] Areli Trae blood pressure, systolic, right arm 137 m m[Hg] Areli Trae blood pressure, diastolic 86 mm[Hg] Ar jayashree Larkin blood pressure, systolic 137 mm[Hg] Mariah Larkin respiratory rate E&M 16 /min Areli Larkin pulse rate 104 /min Areli Larkin oxygen saturation, oximetry 97 % Areli Larikn Body Mass Index (Ratio) 29.83 kg/m2 Christelle Larkin weight E&M 168.4 [lb_av] Areli Larkin blood pressure, diastolic, left arm 113 m m[Hg] Trina Day blood pressure, systolic, left arm 185 mm [Hg] Trina Day blood pressure, diastolic, right arm 114 mm[Hg] Trina Day blood pressure, systolic, right arm 201 m m[Hg] Trina Day blood pressure, diastolic 114 mm[Hg] Leslie Day blood pressure, systolic 201 mm[Hg] Melissa Day pulse rate 105 /min Trina kidd oxygen saturation, oximetry 98 % Trina Day respiratory rate E&M 16 /min Olivia Day Body Mass Index (Ratio) 30.64 kg/m2 Rebecca Day height E&M 63 [in_i] Trina kidd weight E&M 173 [lb_av] Trina Lynne lenny blood pressure, diastolic 90 mm[Hg] Escobar blood pressure, systolic 122 mm[Hg] Cornelius Stewart pulse rate 99 /min Seamus Stewart oxygen saturation, oximetry 99 % Seamus Stewart respiratory rate E&M 16 /min Seamus Stewart weight E&M 150 [lb_av] Seamus Stewart ALLERGIES No Known Drug Allergies RESULTS Date Observation Value Provider Reference Range Interpretation Location very low density lipoproteins 31 mg/dL Crystal Reyes LDL/HDL ratio, serum 4.9 Crystal Reyes triglyceride, serum, fasting 156 mg/dL Crystal Reyes HDL cholesterol, serum 46 mg/dL [place] LDL cholesterol, serum 224 mg/dL [facility] cholesterol, serum 301 mg/dL globulins, serum, total 3.3 g/dL [facility] Estimated Glomerular Filtration Rate (calc) 85 mL/min/{1 .73_m2} [facility] albumin/globulin ratio, serum 1.4 [facility] protein, total, serum 7.9 g/dL albumin, serum 4.6 g/dL [facility] bilirubin, serum, total 0.3 mg/dL [facility] alkaline phosphatase, serum 92 1/L alanine aminotransferase (SGPT), serum 18 1/L aspartate aminotransferase (SGOT), serum 22 1/L [facility] calcium, serum 9.7 mg/dL [facility] blood glucose, fasting 112 mg/dL [facility] creatinine, serum 0.81 mg/dL [facility] urea nitrogen, blood 18 mg/dL [facility] carbon dioxide, serum, total 23 mmol/L chloride, serum 96 mmol/L potassium, serum 3.6 mmol/L [facility] sodium, serum 137 mmol/L [facility] platelet count 314 10*3/uL [facility] red blood cell distribution width 13.6 % [facility] mean corpuscular hemoglobin concentration, RBC 33.2 g/dL [facility] mean corpuscular hemoglobin, RBC 27.8 pg mean corpuscular volume, RBC 84 fL [facility] hematocrit, blood 45.5 % [facility] hemoglobin, blood 15.1 g/dL [facility] erythrocyte (RBC) count 5.44 10*6/mm3 Crystal Reyes monocyte count, blood 0.4 10*3/mm3 Crystal Reyes lymphocyte count, blood 1.8 10*3/mm3 Crystal Reyes monocytes as percent of blood leukocytes 6 % Crystal Reyes lymphocytes as percent of blood leukocytes 25 % Crystal Reyes leukocyte count, blood 6.9 10*3/mm3 Crystal Reyes HISTORY OF MEDICATION USE Medication Status Instructions Dates Provider Indications Com ments METOPROLOL TARTRATE 25 MG ORAL TABLET active one tab. twice daily Alfredo Soto MD LOSARTAN POTASSIUM 100 MG ORAL TABLET active once daily Trina Day MIRTAZAPINE 15 MG ORAL TABLET DISINTEGRATING active once daily Trina Day ASPIRIN 81 MG ORAL TABLET active ONE TAB. DAILY Trina Day CIPRO 500 MG ORAL TABLET completed twice daily for 10 days - Areli LIPITOR 80 MG ORAL TABLET completed ONE TAB. DAILY - Trina Day SUMANTH 5-20 MG ORAL TABLET completed 1 tab daily - Trina Day HYDROCHLOROTHIAZIDE 25 MG ORAL TABLET completed ONE TAB DAILY - Trina Day RANITIDINE HCL 150 MG ORAL TABLET completed ONE TAB TWICE DAILY - Trina Day SOCIAL HISTORY Date Observation Value Provider social history reviewed E&M noe duarte - no changes required Alfredo Soto MD physical exercise, frequency, days per week yes Areli Larkin alcohol use, average drinks per day none [facility] smoking/tobacco cess ation, patient education and counseling yes Areli Trae caffeine use, averag e drinks per day yes Areli Larkin number of years as a smoker 35 a Areli Trae smoking history, tot al pack/day 0.5 [facility] cigarette use yes [facility] smoking status Current every day smoker Blade Larkin smoking/tobacco cess ation, patient education and counseling yes Alfredo Soto MD social history E&M Marital Statu s: L ary alone E thnicity: Prefer not to disclose this information Smoking History: P kevin currently smokes every day. P kevin has been counseled to quit. Alfredo Soto MD social history reviewed E&M noe duarte - no changes required Alfredo Soto MD number of years as a smoker 35 a Trina Day smoking history, tot al pack/day 0.5 Trina Day cigarette use yes Trina julien smoking status Current every day smoker Blade Zenon Day smoking/tobacco cess ation, patient education and counseling yes Saqib Hammond RN social history E&M Marital Statu s: L ary alone E thnicity: Prefer not to disclose this information Saqib Hammond RN social history reviewed E&M reviewed Saqib Hammnod RN physical exercise, frequency, days per week yes [employer] caffeine use, averag e drinks per day yes [employer] alcohol use, average drinks per day none [employer] number of years as a smoker less than 10 years [facility] MENTAL STATUS Date Observation Value Provider assessment of judgme nt and insight E&M Alert and oriented to time, place and person. Mood and affect are normal. Saqib Hammond RN FAMILY HISTORY Family Member Condition Father Family History of Co ronary Artery Disease: Father Family History of Di abetes: Mother Family History of Hy pertension: INSURANCE PROVIDERS Payer name Policy type / Coverage type Nunnelly red republican ID [employer] [facility] [id number] 4 TREATMENT PLAN Date Name Performer Cardiology:Myoview s can and echo are normal. Will obtain PFT's. If PFT's are non-revealing will consider cardiac cath. Alfredo Soto MD Cardiology:She's scheduled for C PAP titration study. Alfredo Soto MD Cardiology:Myoview s can and echo are normal. Will obtain PFT's. If PFT's are non-revealing will consider cardiac cath. Alfredo Soto MD Cardiology:Orders: S NOMED-CT: [id number] Smoking Cessation Counseling ([facility]-[id number]) Ananth Aixa Cardiology:CHOL: 301 (07/29/2011) LDL: 224 (07/29/2011) HDL: 46 (07/29/2011) T (07/29/2011) The following medications were removed from the medication list: Lipitor 80 Mg Tabs (Atorvastatin calcium) ..... One tab. daily Ananth Kruse Cardiology:Will add Metoprolol 25mg BID for better BP control. B P today: 201/114 P rior BP: 122/90 (12/04/2011) The following medications were removed from the medication list: Hydrochlorothiazide 25 Mg Tabs (Hydrochlorothiazide) ..... One tab daily Sumanth 5-20 Mg Tabs (Amlodipine-olmesartan) ..... 1 tab daily Her updated medication list for this problem includes: Metoprolol Tartrate 25 Mg Tabs (Metoprolol tartrate) ..... One tab. twice daily Losartan Potassium 100 Mg Oral Tabs (Losartan potassium) ..... Once daily Aspirin 81 Mg Tabs (Aspirin) ..... One tab. daily Ananth Aixa Cardiology:Complaini ng of pressure in the chest for about two years on and off. Will obtain stress myoview and echo. This is a 55 years old female who presents with CHEST PAIN EVALUATION. The patient complains of chest pain at rest and chest pain with exercise. Location of pain is substernal. Pain radiates to left arm. Pain feels like pressure. Pain is worse with no provocation. Symptoms associated with pain include none. Ananth Kruse new pt.: B P today: 122/90 Prior BP: / () C HOL: 301 (07/29/2011) LDL: 224 (07/29/2011) HDL: 46 (07/29/2011) T (07/29/2011) w ill start on lipitor 80 mg as it is very high a nd she has +fam hx t ob abuse h tn H er updated medication list for this problem includes: Lipitor 80 Mg Tabs (Atorvastatin calcium) ..... One tab. daily Eladio Aviles MD new pt.: H er updated medication list for this problem includes: Ranitidine Hcl 150 Mg Tabs (Ranitidine hcl) ..... One tab twice daily BP today: 122/90 Prior BP: / () D iscussed lifestyle modifications, diet, antacids/medications, and preventive measures. Handout provided. Eladio Aviles MD Date Name DLCO - 41627 FRC - 66602 FVC - 68154 STR - Nuclear Sleep Study Home Complete Echo Arterial Duplex Bi-L ower EX LIPID PANEL COMPREHENSIVE METABO LIC PANEL W/EGFR THYROID PANEL WITH T SH, 3RD GENERATION Stress Test - Nuclea r Complete Echo HISTORY OF PROCEDURES Procedure Date Procedure Name Provider Procedure Notes S tatus SNOMED-CT: 924789034 Smoking Cessation Counseling Alfredo Soto MD completed SNOMED-CT: 038079791 [id number] Current Medications Documented Alfredo Soto MD completed Stress EKG Eladio Aviles MD completed Regadenoson, 4 units Alfredo Soto MD completed Cardiolite, 2 units Alfredo Soto MD c ompleted SPECT Images Chadwick Baker MD completed Schedule Followup Alfredo Soto MD after testing completed SNOMED-CT: [id number] Smoking Cessation Counseling Alfredo Soto MD completed EKG Alfredo Soto MD completed SNOMED-CT: 380473102 470909 Current Medications Documented Alfredo Soto MD completed
--- OUTSIDE RECORDS SUMMARY | 2024-09-11 12:05 | XMS_ITS | Referral Summary ---
Author Organization [facility] Address [address] [place] [address] Care Team Providers Care Head Silverman Name Role Phone Monalisa Balderas MD Primary Care Provider [phone] Source Comments [facility],non-owned Affiliates and Associated Physician Practices is amultiple site organization consisting of ambulatory clinics and hospital sitesin [place], [place] and [place]. This disclosure is being madepursuant to the Care Everywhere program and may not contain all information available regarding this patient. Last updated 18.[facility] Allergies No known active allergies Medications * [...] 05/15/2021 Immunizations Name Administration Dates Next Due Superfeedr primary monoval ent 12+ yr 0.3mL Purple cap 06/30/2021 INFLUENZA VACCINE, QUADR. (A FLURIA, FLUZONE QUADRIVALENT; 6MO+) (IIV4) 07/11/2019,04/16/2015 INFLUENZA VACCINE, QUADR. (F LUZONE; FLULAVAL; FLUARIX; AFLURIA QUADRIVALENT; 6MO+), 0.5 ML (IIV4) 05/19/2021 Social History Tobacco Use Types Packs/Day Years [...] Oxygen Concentration 21% 06/28/2021 1 :13 AM [employer] Weight 47.1 kg (103 lb 12.8 oz) 10/27/2021 6:43 AM CDT Height 160 cm (5' 2.99 ) 10/27/2021 6:43 AM CDT Body Mass Index 18.39 10/27/2021 6:43 AM CDT Functional Status Functional Status Response Date of Assess ment Is person deaf or have serious hearing difficult y? No 10/31/2021 Is person blind or have serious difficulty seein g? No 10/31/2021 Does person have serious dif ficulty walking/climbing stairs? Yes 10/31/2021 Does person have difficulty dressing/bathing? Ye s 10/31/2021 Does person have difficulty doing errands alone? Yes 10/31/2021 Cognitive Status Response Date of Assessm ent Does person have difficulty concentrating/remembering/making decisions? Yes 10/31/2021 Plan of Treatment Not on file Additional Health Concerns Infection Onset Date Last Indicated C DIFF 05/19/2021 05/19/2021 Advance Directives * Full Code (Latest Code Status on File) Date Activated Date Inactivated Comments 10/27/2021 7:50 AM 10/31/2021 3:10 PM * Full Code Date Activated Date Inactivated Comments 06/23/2021 1:24 PM 06/30/2021 7:20 PM * Full Code Date Activated Date Inactivated Comments 05/15/2021 5:48 PM 05/22/2021 7:52 PM Care Teams Head Silverman Relationship Specialty Start Date End Date Monalisa Balderas MD [address] [place] [address] [place] [address] PCP - General Internal Medicine 05/15/21
[2024-09-11 14:25] LABS: Basophils Percent Auto 0.4 % (0.2-1.2); Eosinophils Absolute Auto 0.2 K/mm3 (0-0.3); Eosinophils Percent Auto 3.2 % (0-4.4); Hematocrit 32.1 % (37.0-47.0); Hemoglobin 10.3 g/dL (12.0-15.0); Immature Granulocyte Absolute 0.01 K/mm3 (0.00-0.031); Immature Granulocyte Percent A 0.1 % (0-0.5); Immature Platelet Fraction Pct 4.1 % (0.9-11.2); Lymphocytes Absolute Auto 1.98 K/mm3 (0.9-3.2); Lymphocytes Percent Auto 27.3 % (18.3-44.2); Mean Corpuscular HGB Conc 32.1 g/dl (32-36); Mean Corpuscular Hemoglobin 26.4 pg (26-34); Mean Corpuscular Volume 82.3 fl (80-100); Mean Platelet Volume 11.2 fl (7.4-10.4); Monocytes Absolute Auto 0.5 K/mm3 (0.1-0.6); Monocytes Percent Auto 6.8 % (2.6-8.5); Neutrophils Absolute Auto 4.5 K/mm3 (1.3-6.7); Neutrophils Percent Auto 62.2 % (45.5-73.1); Platelet Count Result 256 k/mm3 (150-375); Red Cell Distribution Width 14.2 % (11.5-14.5); White Blood Count 7.2 K/mm3 (4.5-10.0)
[2024-09-11 14:42] LABS: Alanine Aminotransferase 21 U/L (6-35); Albumin Level 4.1 g/dL (3.5-5.1); Alkaline Phosphatase 128 U/L (38-126); Anion Gap 9 mmol/L (4-12); Aspartate Amino Transferase 23 U/L (14-36); Bilirubin,Total 0.4 mg/dL (0.2-1.3); Blood Urea Nitrogen 25 mg/dL (7-17); Calcium 9.6 mg/dL (8.4-10.2); Carbon Dioxide 27 mmol/L (22-30); Chloride 102 mmol/L (98-107); Estimated CRCL calculation 84 ml/min; Estimated Glomerular Filt Rate > 60; Glucose 88 mg/dL (65-110); Potassium 4.4 mmol/L (3.4-5.0); Sodium 138 mmol/L (137-145)
--- NOTE | 2024-09-11 16:16 | PC.NURSE ---
Multiple attempts performed to obtain blood cultures. Unable to successfully obtain. Chema Briggs RN notified permission to call phlebotomy. Mangle Roller notified
--- NOTE | 2024-09-11 16:18 | PC.NURSE ---
Per Dr. Horne area draining yellow thick drainage is not a G Tube site, pt had a bile drain in the past that has formed an abscess. Pt incontinent of large amount of soft stool. Katherine care given, pt repositioned. 4 X 4 gauze to drain site.
--- NOTE | 2024-09-11 17:00 | P.HP_ITS ---
H&P: HPI History of Present Illness Date/Time: 09/11/24 17:00 Chief Complaint: Discharge from an abdominal wound. Narrative: This is an unfortunate 64-year-old female with history of cerebrovascular accident and intracranial hemorrhage with resultant right hemiparesis, dysphagia, and expressive aphasia, hypertension, and dyslipidemia who presented to the emergency department via EMS from her nursing facility for evaluation of discharge coming from an abdominal wound. She is unable to provide history given the aphasia and all of the following history is obtained via a review of her electronic medical records. She had acute cholecystitis in December 2020 treated with antibiotics and a cholecystostomy tube was placed to decompress the gallbladder. Did tube was removed eventually at some point and she was garrett dmitted to the hospital in December 2022 with a right-sided abdominal wall abscess near the same site though no obvious connection to the gallbladder was seen. The area was incised and drained and improved with antibiotics. Today she was noted to have drainage coming from a small open area around the same site and she was sent in for evaluation. She is able to shake her head no when asked if she is ferrara ving any pain. She also denies feeling feverish and sickness to her stomach. In the ED: She was afebrile on arrival with stable vital signs. Labs are significant for a hemoglobin of 10.3, BUN 25, creatinine 0.43, alkaline phosphatase 128. CT of the abdomen and pelvis showed a 4.0 x 2.8 x 0.8 right upper quadrant anterior abdominal wall abscess versus biloma located along a prior cholecystostomy drainage catheter tract. She was started on Zosyn is being admitted in this setting for further antibiotics and surgery consultation. Review of Systems Review of Systems: Unable to obtain accurately given her aphasia as detailed above. [facility] Past Medical History Medical History (Updated 09/11/24 @ 20:51 by Zaina Gaitan PA-C) Chronic anemia Dyslipidemia Chronic obstructive pulmonary disease Cerebrovascular accident complicated by intracranial hemorrhage with resultant right-sided weakness, dysphagia, and expressive aphasia Reflux esophagitis High cholesterol Hypertension Depression Surgical History Surgical History History of gastrostomy tube placement History of esophagogastroduodenoscopy (EGD) (05/2021) Hiatal hernia and reflux esophagitis History of ankle surgery Family History Family History Other Cancer Cerebrovascular accident Diabetes mellitus Heart disease Hypertension Social History Social History (Updated 09/11/24 @ 20:47 by Zaina Gaitan PA-C) Social History: Surrogate medical decision maker: Rudy Ram, debi. Code status: FULL CODE. Smoking packs per day: 0.5 Smoking cigarettes per day: 10.0 Smoking status: Former smoker Tobacco type: cigarettes Alcohol intake: unknown Substance use: unknown Substance use type: does not use Living arrangements: [facility] Additional living arrangements comments: . She has 2 sons. Additional occupation/education comments: Disabled. Spiritual care concerns: No Meds Home Medications and Allergies Home Medications ?Medication ?Instructions ?Recorded ?Confirmed ?Type aspirin 81 mg chewable tablet 81 mg feeding tube DAILY 01/16/21 09/11/24 History atorvastatin 80 mg tablet 80 mg feeding tube HS 01/16/21 09/11/24 History cholecalciferol (vitamin D3) 25 25 mcg feeding tube DAILY 01/16/21 09/11/24 History mcg (1,000 unit) capsule famotidine 20 mg tablet 20 mg feeding tube BID 01/16/21 09/11/24 History loratadine 10 mg capsule 10 mg feeding tube DAILY 01/16/21 09/11/24 History ondansetron HCl 4 mg tablet 4 mg feeding tube Q8H PRN Nausea 05/06/21 09/11/24 History (Zofran) And Vomiting Ventolin HFA 2 puff inhalation PRN PRN Wheezing 01/23/23 09/11/24 History Voltaren Arthritis Pain 1 appful topical DAILY 01/23/23 09/11/24 History acetaminophen 650 mg feeding tube Q4H PRN Pain 01/23/23 09/11/24 History (Scale Score 1-3)/fever ascorbic acid (vitamin C) 500 mg 500 mg feeding tube DAILY 01/23/23 09/11/24 History tablet (Vitamin C) carvedilol 6.25 mg tablet 6.25 mg feeding tube BID 01/23/23 09/11/24 History ferrous sulfate 220 mg (44 mg 330 mg feeding tube BID 01/23/23 09/11/24 History iron)/5 mL oral elixir lisinopril 1 mg/mL oral solution 5 mg feeding tube DAILY 01/23/23 09/11/24 History magnesium citrate 300 ml feeding tube DAILY PRN 01/23/23 09/11/24 History Constipation sertraline 20 mg/mL oral 100 mg feeding tube DAILY 01/23/23 09/11/24 History concentrate Bactrim DS 800 mg feeding tube BID 7 days ##0 01/27/23 01/23/23 Rx amoxicillin 875 mg-potassium 1 tablet PO Q12H 7 days #14 tabs 01/27/23 Rx clavulanate 125 mg tablet nystatin 100,000 unit/mL oral 5 ml feeding tube QID #60 mL 01/27/23 Rx suspension ezetimibe 10 mg tablet mg feeding tube .every bedtime 09/11/24 History fluoxetine 20 mg/5 mL (4 mg/mL) mg feeding tube 09/11/24 History oral solution Allergies Allergy/AdvReac Type Severity Reaction Status Date / Time No Known Allergies Allergy Verified 09/11/24 15:34 Vital Signs Vital Signs - 24 hr 09/11/24 11:03 09/11/24 11:14 09/11/24 11:16 Temperature 97.8 F 97.8 F Pulse Rate 71 66 68 Respiratory Rate 18 16 16 Blood Pressure 109/61 109/61 106/57 L Pulse Oximetry 100 99 09/11/24 11:17 09/11/24 14:18 Temperature Pulse Rate 69 Respiratory Rate 16 18 Blood Pressure 114/68 Pulse Oximetry 98 98 Exam Narrative: General: Thin, chronically ill-appearing view sitting up in bed in no acute distress. Weight: 48.7 kg. BMI: 17.3. HEENT: PERRL, EOMI. Sclera anicteric. Slight dysconjugate gaze. Tacky mucous membranes. Poor dental hygiene. Neck: Supple. Respiratory: Respirations are nonlabored lung sounds are clear to auscultation. Cardiovascular: Regular rate and rhythm with S1-S2. Gastrointestinal: Abdomen is soft, nontender, and nondistended with positive bowel sounds. G-tube site is clean, dry, and intact. There is a small open area in the right upper quadrant with mild serous appearing drainage. There is no surrounding erythema or warmth. She does have pretty significant tenderness to palpation. Skin: Warm and dry. Generalized pallor. Extremities: No cyanosis, clubbing, or edema. Radial and pedal pulses intact. Neurological: Alert. Unable to assess orientation as she has expressive aphasia. Cranial nerves 2-12 are grossly intact. No obvious facial asymmetry. Right leg is slightly contracted. Psychiatric: Pleasant and cooperative. H&P: Results Labs Labs: Short CBC 09/11/24 Range/Units 14:17 WBC 7.2 (4.5-10.0) K/mm3 Hgb 10.3 L (12.0-15.0) g/dL Hct 32.1 L (37.0-47.0) % Plt Count 256 (150-375) k/mm3 BMP 09/11/24 14:17 Sodium 138 Potassium 4.4 Chloride 102 Carbon Dioxide 27 BUN 25 H D Creatinine 0.43 L Glucose 88 Calcium 9.6 Liver Function 09/11/24 Range/Units 14:17 Total Bilirubin 0.4 (0.2-1.3) mg/dL AST 23 (14-36) U/L ALT 21 (6-35) U/L Alkaline Phosphatase 128 H (38-126) U/L Albumin 4.1 (3.5-5.1) g/dL Impressions Abdomen X-Ray 09/11/24 12:37 IMPRESSION: 1. Percutaneous gastrostomy tube tip and injected contrast in the stomach with no extraluminal contrast extravasation. 2. Reflux of contrast into a small sliding-type hiatal hernia. 3. 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 4. Cholelithiasis. Abdomen/Pelvis CT 09/11/24 15:17 IMPRESSION: 1. Decrease in size of a now 4.0 x 2.8 x 0.8 cm right upper quadrant anterior abdominal wall abscess versus biloma located along a prior cholecystostomy drainage catheter tract. 2. No acute intra-abdominal/pelvic process. 3. Cholelithiasis with small amount of gas within the gallbladder lumen which could be due to either prior sphincterotomy or passage of gas along the prior drainage catheter tract. 4. Percutaneous gastrostomy tube extends to the gastric antrum with distal bulb at the pylorus. No bowel obstruction. Assessment and Plan Assessment and plan (1) Right upper quadrant abdominal abscess: Code(s): K65.1 - Peritoneal abscess Status: Acute (2) Hypertension: Qualifiers: Hypertension type: essential hypertension Qualified Code(s): I10 - Essential (primary) hypertension Code(s): I10 - Essential (primary) hypertension Status: Chronic (3) Dyslipidemia: Code(s): E78.5 - Hyperlipidemia, unspecified Status: Acute (4) Chronic anemia: Code(s): D64.9 - Anemia, unspecified Status: Acute Plan The patient presented to the emergency department for evaluation of discharge coming from a small open wound in the right upper quadrant as detailed in HPI. Labs, imaging, EKG, and all reports were personally reviewed. CT scan shows abscess versus biloma and she has been started on empiric antibiotics however it does not look overtly infected on the surface. Culture was obtained. Surgery was consulted by the ED physician and their input is appreciated. Chronic anemia stable on review of previous labs. Vital signs were reviewed and they are stable. Her home medications will be reviewed and resumed as appropriate. Findings and treatment plan were discussed with the patient. Questions were solicited and answered to satisfaction. The patient's medical management will be taken over by the hospitalist team in a.m. Quality VTE Prophylaxis VTE prophylaxis: mechanical ordered If No VTE Prophylaxis Answer both mechanical and pharmacologic: Reason no pharmacologic proph: medical contraindication (may require I&D) The patient has been admitted under observation status. Hospitalist MIPS Advance Care Plan I have confirmed that the patient's Advanced Care Plan is present, code status is documented, or surrogate decision maker is listed in patient medical record.: Yes Medication Reconciliation I have utilized all available resources to obtain, update and review the patients current medications (includes all prescriptions, OTC, herbals, cannabis, and nutritional supplements).: Yes
--- NOTE | 2024-09-11 17:13 | PC.NURSE ---
Dr. Horne cancelled blood culture order. RN to collect wound swab
[2024-09-11] MEDS: PIPERACILLN/TAZ 3.375GM/NS50ML 3.375 GM/50 ML BAG IVPB ×2 (17:21→22:40)
--- NOTE | 2024-09-11 21:49 | PC.NURSE ---
NPO DIET FLUSH G-TUBE WITH 30ML WATER BEFORE AND AFTER MEDICATION JEVITY 1.5 AT 50ML/HR CONTINUOUS. MAY SUBSTITUTE WITH FIBERSOURCE 1.5 IF JEVITY NOT AVAILABLE FLUSH WITH 150ML WATER Q4 HOURS CHECK FOR RESIDUAL AND NOTIFY PHYSICIAN IF GREATER THAN 150ML QSHIFT
--- NOTE | 2024-09-11 22:02 | ADMGEN ---
This patient, Marilyn Ram, was admitted to [facility] Surg Room 324-01. Patient/family oriented to hospital policies and general routines including ID bracelet, bed and alarms, visiting hours, pain management, procedures, bathroom and other care routines, personal items, smoking policy, room service/diet, and visiting hours. Information on how to activate the Rapid Response Team has been discussed. Patient/Family are encouraged to report perceived risks to care and to ask questions if they do not understand what they are told or what they should do.
[2024-09-11] MEDS: EZETIMIBE 10 MG TABLET FEED TUBE (23:39)
[2024-09-11] MEDS: ATORVASTATIN 40 MG TABLET 80 MG FEED TUBE (23:39)
[2024-09-11] MEDS: carvediloL 6.25 MG TABLET FEED TUBE (23:39)
[2024-09-11] MEDS: FAMOTIDINE 20 MG TABLET FEED TUBE (23:39)
[2024-09-12] VITALS (8 sets, daily range): BP systolic 83–133; BP diastolic 51–87; PULSE 70–78; RESP 18–20; TEMP 36.3–36.8; O2SAT 94–96; BMI 16.5
[2024-09-12] MEDS: PIPERACILLN/TAZ 3.375GM/NS50ML 3.375 GM/50 ML BAG IVPB ×4 (05:42→23:13)
--- NOTE | 2024-09-12 06:53 | PM.IMPN ---
Progress Note: A&P Assessment and Plan (1) Right upper quadrant abdominal abscess: Code(s): K65.1 - Peritoneal abscess Status: Acute Assessment and Plan: Hx of acute cholecystitis in December 2020 treated with antibiotics and a cholecystostomy tube was placed to decompress the gallbladder. Tube was removed at some point and she was readmitted to the hospital in December 2022 with a right-sided abdominal wall abscess near the same site though no obvious connection to the gallbladder was seen. The area was I&D and improved with antibiotics. She was noted to have drainage coming from a small open area around the same site on 09/11. - Does not meet SIRS criteria. Vitals stable, WBC WNL. - Wound culture obtained on 09/11: pending - CT abdomen/pelvis: 1. Decrease in size of a now 4.0 x 2.8 x 0.8 cm right upper quadrant anterior abdominal wall abscess versus biloma located along a prior cholecystostomy drainage catheter tract. 2. No acute intra-abdominal/pelvic process. 3. Cholelithiasis with small amount of gas within the gallbladder lumen which could be due to either prior sphincterotomy or passage of gas along the prior drainage catheter tract. 4. Percutaneous gastrostomy tube extends to the gastric antrum with distal bulb at the pylorus. No bowel obstruction. 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 Start with local wound care with packing this open wound that is already open and draining (2) Hypertension: Qualifiers: Hypertension type: essential hypertension Qualified Code(s): I10 - Essential (primary) hypertension Code(s): I10 - Essential (primary) hypertension Status: Chronic Assessment and Plan: Chronic, continue home medications - lisinopril 5 mg daily - continue home medications, blood pressures remain stable (3) Dyslipidemia: Code(s): E78.5 - Hyperlipidemia, unspecified Status: Acute Assessment and Plan: Chronic, continue atorvastatin 80 mg daily (4) Chronic anemia: Code(s): D64.9 - Anemia, unspecified Status: Acute Assessment and Plan: H/H 10.3/32.1 on admission, appears to be at baseline - Monitor with daily labs Time Spent With Patient Time with patient: 25 - 35 minutes Subjective Date/time seen: 09/12/24 06:53 Interval history: 64-year-old female with history of cerebrovascular accident and intracranial hemorrhage with resultant right hemiparesis, dysphagia, and expressive aphasia, hypertension, and dyslipidemia who presented to the hospital via EMS from her nursing facility for evaluation of discharge coming from an abdominal wound. Patient is pleasant lying in bed. She is able to answer yes and no questions by shaking her head secondary to her dysphagia. During assessment she denied any chest pain, shortness a breath, palpitations, nausea/vomiting, and abdominal pain. Review of Systems Review of Systems: unable to provide history given the aphasia however did shake her head yes/no for ROS Exam Narrative: AF HR 75 RR 18 Spo2 95 BP 123/78 General: female in no acute respiratory distress who is nontoxic appearing, lying semi recumbent in bed. HEENT: Normocephalic. Atraumatic. No facial asymmetry. Chest: Lungs are clear to auscultation bilaterally. No wheezes or crackles. CV: Heart was regular rate and rhythm. S1-S2. No murmurs, gallops, or rubs. Abd: Abdomen was soft. Nontender. Nondistended. Small open wound to the RUQ that appears chronic with small amount of purulent drainage. Ext: No clubbing, cyanosis, or edema. Neuro: Patient is alert. Speech is clear. Objective Data Vital Signs Vital Signs: Vital Signs - 24 hr 09/11/24 11:03 09/11/24 11:14 09/11/24 11:16 Temperature 97.8 F 97.8 F Pulse Rate 71 66 68 Respiratory Rate 18 16 16 Blood Pressure 109/61 109/61 106/57 L Pulse Oximetry 100 99 Oxygen Delivery 09/11/24 11:17 09/11/24 14:18 09/11/24 16:06 Temperature Pulse Rate 69 96 Respiratory Rate 16 18 16 Blood Pressure 114/68 104/71 Pulse Oximetry 98 98 99 Oxygen Delivery 09/11/24 17:07 09/11/24 18:29 09/11/24 20:00 Temperature 97.8 F Pulse Rate 81 68 68 Respiratory Rate 16 16 16 Blood Pressure 110/74 114/79 Pulse Oximetry 99 98 98 Oxygen Delivery Room Air 09/11/24 22:00 09/11/24 23:39 Temperature 98.0 F Pulse Rate 74 60 Respiratory Rate 16 Blood Pressure 89/65 L Pulse Oximetry 94 Oxygen Delivery Intake/Output Intake/Output: Intake & Output 09/09/24 09/10/24 09/11/24 09/12/24 23:59 23:59 23:59 23:59 Intake Total 200 50 Balance 200 50 Meds/Results Medications: Active Medications Generic Name Dose Route Start Last Admin Trade Name Freq PRN Reason Stop Dose Admin Acetaminophen 650 mg 09/11/24 20:52 Acetaminophen 325 Mg Tablet PO Q6H PRN Mild Pain (1-3) or Fever Albuterol 2 puff 09/11/24 22:34 Albuterol Sulfate (*Sp) Aerosol 1 Puff INHALATION TID PRN Wheezing Ascorbic Acid 500 mg 09/12/24 09:00 Ascorbic Acid 500 Mg Tablet FEED TUBE DAILY SANDRA Aspirin 81 mg 09/12/24 09:00 Aspirin 81 Mg Chewable Tablet FEED TUBE DAILY [facility] Atorvastatin Calcium 80 mg 09/11/24 22:20 09/11/24 23:39 Atorvastatin 40 Mg Tablet FEED TUBE 80 mg HS SANDRA Administration Bisacodyl 10 mg 09/11/24 22:11 Bisacodyl 10 Mg Suppository RECTAL DAILY PRN constipation Carvedilol 6.25 mg 09/11/24 22:20 09/11/24 23:39 Carvedilol 6.25 Mg Tablet FEED TUBE 6.25 mg Q12HR SANDRA Administration Diclofenac Sodium 0 applic 09/12/24 09:00 Diclofenac Sodium 1% 100 Gm Gel (*Bkc) TOPICAL DAILY SANDRA Ezetimibe 10 mg 09/11/24 22:20 09/11/24 23:39 Ezetimibe 10 Mg Tablet FEED TUBE 10 mg HS SANDRA Administration Famotidine 20 mg 09/11/24 22:20 09/11/24 23:39 Famotidine 20 Mg Tablet FEED TUBE 20 mg BID SANDRA Administration Ferrous Sulfate 325 mg 09/12/24 09:00 Ferrous Sulfate Liquid 325 Mg/7.4 Ml Elixir FEED TUBE BID SANDRA Fluoxetine HCl 20 mg 09/12/24 09:00 Fluoxetine Hcl 20 Mg Capsule FEED TUBE DAILY SANDRA Gentamicin Sulfate 1 applic 09/12/24 09:00 Gentamicin Sulfate 0.1% Cr 15 Gm Tube TOPICAL 10/02/24 09:01 DAILY [facility] Piperacillin/Tazobactam/Dextrose 3.375 gm in 50 mls @ 100 mls/hr 09/11/24 23:00 09/12/24 06:12 Zosyn 3.375 Gm/Ns 50 Ml IVPB Infused Q6HR [facility] Infusion Lisinopril 5 mg 09/12/24 09:00 Lisinopril 5 Mg Tablet FEED TUBE DAILY [facility] Loratadine 10 mg 09/12/24 09:00 Loratadine 10 Mg Tablet FEED TUBE DAILY [facility] Sertraline HCl 75 mg 09/12/24 09:00 Sertraline Hcl 25 Mg Tablet FEED TUBE DAILY [facility] Silver Sulfadiazine 1 applic 09/12/24 09:00 Silver Sulfadiazine 1% Cr 400 Gm Jar (*Bkc) TOPICAL DAILY [facility] Vitamin D 1,000 units 09/12/24 09:00 Cholecalciferol 1,000 Units Tablet FEED TUBE DAILY [facility] Radiology Results: ITS Impressions Abdomen X-Ray 09/11/24 12:37 IMPRESSION: 1. Percutaneous gastrostomy tube tip and injected contrast in the stomach with no extraluminal contrast extravasation. 2. Reflux of contrast into a small sliding-type hiatal hernia. 3. 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 4. Cholelithiasis. Abdomen/Pelvis CT 09/11/24 15:17 IMPRESSION: 1. Decrease in size of a now 4.0 x 2.8 x 0.8 cm right upper quadrant anterior abdominal wall abscess versus biloma located along a prior cholecystostomy drainage catheter tract. 2. No acute intra-abdominal/pelvic process. 3. Cholelithiasis with small amount of gas within the gallbladder lumen which could be due to either prior sphincterotomy or passage of gas along the prior drainage catheter tract. 4. Percutaneous gastrostomy tube extends to the gastric antrum with distal bulb at the pylorus. No bowel obstruction. Labs Labs: Laboratory Results - last 24 hr 09/11/24 14:17 WBC 7.2 RBC 3.90 L Hgb 10.3 L Hct 32.1 L MCV 82.3 MCH 26.4 MCHC 32.1 RDW 14.2 Plt Count 256 MPV 11.2 H Immature Gran % (Auto) 0.1 Neut % (Auto) 62.2 Lymph % (Auto) 27.3 [place] % (Auto) 6.8 Eos % (Auto) 3.2 Baso % (Auto) 0.4 Lymph # (Auto) 1.98 [place] # (Auto) 0.5 Eos # (Auto) 0.2 Baso # (Auto) 0.0 Abs Immat Gran (auto) 0.01 Absolute Neuts (auto) 4.5 Absolute Nucleated RBC 0.000 Nucleated RBC % 0.0 % Immature Plt Fraction 4.1 Sodium 138 Potassium 4.4 Chloride 102 Carbon Dioxide 27 Anion Gap 9 BUN 25 H D Creatinine 0.43 L Estim Creat Clear Calc 84 Estimated GFR > 60 Glucose 88 Calcium 9.6 Total Bilirubin 0.4 AST 23 ALT 21 Alkaline Phosphatase 128 H Total Protein 8.0 Albumin 4.1 Quality VTE Prophylaxis VTE prophylaxis: mechanical ordered
[2024-09-12 08:08] LABS: Anion Gap 8 mmol/L (4-12); Blood Urea Nitrogen 20 mg/dL (7-17); CRP < 0.5 mg/dL (<1.0); Calcium 9.3 mg/dL (8.4-10.2); Carbon Dioxide 26 mmol/L (22-30); Chloride 105 mmol/L (98-107); Estimated CRCL calculation 58 ml/min; Estimated Glomerular Filt Rate > 60; Glucose 82 mg/dL (65-110); Potassium 4.2 mmol/L (3.4-5.0); Sodium 139 mmol/L (137-145)
[2024-09-12] MEDS: LORATADINE 10 MG TABLET FEED TUBE (09:33)
[2024-09-12] MEDS: CHOLECALCIFEROL 1,000 UNITS TABLET 1000 UNITS FEED TUBE (09:34)
[2024-09-12] MEDS: carvediloL 6.25 MG TABLET FEED TUBE ×2 (09:34→20:53)
[2024-09-12] MEDS: SERTRALINE HCL 25 MG TABLET 75 MG FEED TUBE (09:34)
[2024-09-12] MEDS: ASPIRIN 81 MG CHEWABLE TABLET FEED TUBE (09:34)
[2024-09-12] MEDS: ASCORBIC ACID 500 MG TABLET FEED TUBE (09:34)
[2024-09-12] MEDS: FERROUS SULFATE LIQUID 325 MG/7.4 ML ELIXIR FEED TUBE ×2 (09:35→17:35)
[2024-09-12] MEDS: FAMOTIDINE 20 MG TABLET FEED TUBE ×2 (09:35→17:35)
[2024-09-12] MEDS: FLUoxetine HCL 20 MG CAPSULE FEED TUBE (09:35)
[2024-09-12] MEDS: lisinopriL 5 MG TABLET FEED TUBE (09:35)
[2024-09-12] MEDS: GENTAMICIN SULFATE 0.1% CR 15 GM TUBE 1 APPLIC TOPICAL (09:55)
[2024-09-12] MEDS: DICLOFENAC SODIUM 1% 100 GM GEL (*BKC) TOPICAL (09:55)
[2024-09-12] MEDS: SILVER SULFADIAZINE 1% CR 400 GM JAR (*BKC) 1 APPLIC TOPICAL (09:55)
--- NOTE | 2024-09-12 11:28 | P.CONGS_ITS ---
Assessment and Plan Assessment and plan (1) Right upper quadrant abdominal abscess: Code(s): K65.1 - Peritoneal abscess Status: Acute Assessment and Plan: Patient actually brought into the ED from the shelter with concerns of drainage from the RUQ wound. They were initially concerned that she had tube feeding coming from this wound. CT scan showed the gastrostomy tube in place, and a recurrent right upper quadrant abdominal wall abscess that is within a cholecystostomy tube tract. There is no bilious-appearing output from her wound. The wound is open and has active purulent drainage. She has a normal WBC count and is afebrile. 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 I reviewed the CT scan with the Radiologist who feels there would not be much of a benefit to proceeding with percutaneous drainage. This would essentially continue to likely be an issue chronically while the fistula is open. I discussed the case with Dr. Tse. The patient is a higher risk surgical candidate with her history of a stroke, and there is concern that even with more invasive surgical intervention or considering a cholecystectomy, that she may have issues with healing even following surgery. We will start with local wound care with packing this open wound that is already open and draining. I attempted to call family, but the numbers that are listed do not have voicemail and I have nursing staff attempting to call the shelter for additional information for family. In her EMR, it appears there were issues with having no next of kin to contact for her last I&D in 2022, which may still be the case. There is no indication for emergent surgical intervention and we will continue to follow along. (2) Cholecystocutaneous fistula: Code(s): K82.3 - Fistula of gallbladder Status: Acute Assessment and Plan: Although there is no bilious appearing output, when the CT was reviewed with the Radiologist, there is high suspicion for a cholecystocutaneous fistula given her chronic open wound with a nonhealing track from her cholecystostomy tube placement in 2020. There was previously evidence of a fistula in May of 2021, and she continues to have recurrent fluid collections in the RUQ abdominal wall with a chronic draining wound. Will star local wound care for now and if we are able to contact family/next of kin, then we could discuss other surgical options. This is ultimately a chronic issue and it does not appear that she has ever followed up after previous hospitalizations for this issue to discuss the option of an interval cholecystectomy. (3) Chronic cholecystitis with calculus: Code(s): K80.10 - Calculus of gallbladder with chronic cholecystitis without obstruction Status: Acute (4) Gastrostomy status: Code(s): Z93.1 - Gastrostomy status Status: Acute (5) CVA (cerebral vascular accident): Code(s): I63.9 - Cerebral infarction, unspecified Status: Acute (6) Aphasia: Code(s): R47.01 - Aphasia Status: Acute (7) Chronic anemia: Code(s): D64.9 - Anemia, unspecified Status: Acute (8) HTN (hypertension): Qualifiers: Hypertension type: primary hypertension Qualified Code(s): I10 - Essential (primary) hypertension Code(s): I10 - Essential (primary) hypertension Status: Acute Plan I have discussed the patient's case and plan of care with Dr. Tse. History of Present Illness Consult details Consult date: 09/12/24 Reason for consult: other (Abdominal wall abscess) Requesting physician: Troy Horne MD Narrative: This is a 64-year-old woman with history of cerebrovascular accident and intracranial hemorrhage with resultant right hemiparesis, dysphagia, and expressive aphasia, hypertension, and dyslipidemia, who we have been asked to see in surgical consultation for abdominal wall abscess. She is unable to provide history therefore history is obtained by review of the electronic medical record. No family at the bedside. I attempted to contact the family with both contact numbers provided in the chart, but was unable to get ahold of any family members. She has a history of percutaneous cholecystostomy tube placement in 2020 for acute cholecystitis. In the chart, it appears that she was lost to follow-up and her tube fell out a few months after placement. She eventually returned to the hospital 4 months after the cholecystostomy tube with a right-sided abdominal wall abscess that was percutaneously drained. She again returned in December of 2022 with a recurrent right-sided abdominal wall abscess. She underwent incision and drainage of right abdominal wall abscess by Dr. Yung and he found a small 2 cm abscess in the right upper quadrant abdominal wall that extends cephalad towards the ribs but without an obvious connection to the gallbladder and no evidence of bilious drainage. She again appears to have gotten lost in follow-up, and it is unclear if this wound ever eventually healed. She was now brought back into the ED from the shelter yesterday after having found to have drainage coming from a small open area in the right upper quadrant. She shakes her head no when asked if she is having pain, otherwise she is not able to answer any questions due to her expressive aphasia. She was afebrile on arrival with stable vital signs. White blood cell count normal. CT of the abdomen and pelvis showed a 4.0 x 2.8 x 0.8 right upper quadrant anterior abdominal wall abscess versus biloma located along a prior cholecystostomy drainage catheter tract. She was started on Zosyn and was admitted for further evaluation. Review of Systems 2 Review of Systems: ROS unobtainable: Yes unobtainable due to medical condition (aphasia with history of CVA) [facility] Past Medical History Medical History History of acute cholecystitis Chronic anemia Dyslipidemia Chronic obstructive pulmonary disease Cerebrovascular accident complicated by intracranial hemorrhage with resultant right-sided weakness, dysphagia, and expressive aphasia Reflux esophagitis High cholesterol Hypertension Depression Surgical History Surgical History History of incision and drainage History of insertion of cholecystostomy tube History of gastrostomy tube placement History of esophagogastroduodenoscopy (EGD) (05/2021) Hiatal hernia and reflux esophagitis History of ankle surgery Family History Family History Other Cancer Cerebrovascular accident Diabetes mellitus Heart disease Hypertension Social History Social History Social History: Surrogate medical decision maker: Rudy Ram, son. Code status: FULL CODE. Smoking packs per day: 0.5 Smoking cigarettes per day: 10.0 Smoking status: Unknown if ever smoked Tobacco type: cigarettes Alcohol intake: unknown Substance use: unknown Substance use type: does not use Living arrangements: shelter Additional living arrangements comments: . She has 2 sons. Additional occupation/education comments: Disabled. Spiritual care concerns: No Meds Home Medications and Allergies Home Medications ?Medication ?Instructions ?Recorded ?Confirmed ?Type aspirin 81 mg chewable tablet 81 mg feeding tube DAILY 01/16/21 09/11/24 History atorvastatin 80 mg tablet 80 mg feeding tube HS 01/16/21 09/11/24 History cholecalciferol (vitamin D3) 25 25 mcg feeding tube DAILY 01/16/21 09/11/24 History mcg (1,000 unit) capsule famotidine 20 mg tablet 20 mg feeding tube BID 01/16/21 09/11/24 History loratadine 10 mg capsule 10 mg feeding tube DAILY 01/16/21 09/11/24 History ondansetron HCl 4 mg tablet 4 mg feeding tube Q6H PRN Nausea 05/06/21 09/11/24 History (Zofran) And Vomiting Ventolin HFA 2 puff inhalation PRN PRN Wheezing 01/23/23 09/11/24 History Voltaren Arthritis Pain 1 appful topical DAILY 01/23/23 09/11/24 History acetaminophen 650 mg feeding tube Q4H PRN Pain 01/23/23 09/11/24 History (Scale Score 1-3)/fever ascorbic acid (vitamin C) 500 mg 500 mg feeding tube DAILY 01/23/23 09/11/24 History tablet (Vitamin C) carvedilol 6.25 mg tablet 6.25 mg feeding tube BID 01/23/23 09/11/24 History ferrous sulfate 220 mg (44 mg 330 mg feeding tube BID 01/23/23 09/11/24 History iron)/5 mL oral elixir lisinopril 1 mg/mL oral solution 5 mg feeding tube DAILY 01/23/23 09/11/24 History magnesium citrate 300 ml feeding tube DAILY PRN 01/23/23 09/11/24 History Constipation sertraline 20 mg/mL oral 75 mg feeding tube DAILY 01/23/23 09/11/24 History concentrate bisacodyl 10 mg rectal suppository 10 mg RECTAL DAILY PRN constipation 09/11/24 09/11/24 History ezetimibe 10 mg tablet 10 mg feeding tube .every bedtime 09/11/24 09/11/24 History fluoxetine 20 mg/5 mL (4 mg/mL) 20 mg feeding tube DAILY 09/11/24 09/11/24 History oral solution gentamicin 0.1 % topical cream 1 applic topical DAILY 09/11/24 09/11/24 History imipenem-cilastatin 500 mg See Rx Instructions .Route .COMPLEX 09/11/24 09/11/24 History intravenous solution lisinopril 5 mg tablet 5 mg feeding tube DAILY 09/11/24 09/11/24 History silver sulfadiazine 1 % topical 1 applic topical DAILY 09/11/24 09/11/24 History cream sodium phosphates 19 gram-7 118 ml RECTAL DAILY PRN 09/11/24 09/11/24 History gram/118 mL enema (Fleet Enema) constipation Allergies Allergy/AdvReac Type Severity Reaction Status Date / Time No Known Allergies Allergy Verified 09/11/24 15:34 Vital Signs Vital Signs - 24 hr 09/11/24 14:18 09/11/24 16:06 09/11/24 17:07 Temperature Pulse Rate 69 96 81 Respiratory Rate 18 16 16 Blood Pressure 114/68 104/71 110/74 Pulse Oximetry 98 99 99 Oxygen Delivery 09/11/24 18:29 09/11/24 20:00 09/11/24 22:00 Temperature 97.8 F 98.0 F Pulse Rate 68 68 74 Respiratory Rate 16 16 16 Blood Pressure 114/79 89/65 L Pulse Oximetry 98 98 94 Oxygen Delivery Room Air 09/11/24 23:39 09/12/24 06:00 09/12/24 08:45 Temperature 98.2 F Pulse Rate 60 75 Respiratory Rate 18 Blood Pressure 83/51 L 133/87 Pulse Oximetry 95 Oxygen Delivery 09/12/24 08:50 09/12/24 09:34 Temperature Pulse Rate 75 Respiratory Rate Blood Pressure 123/78 Pulse Oximetry Oxygen Delivery Exam 2 Const: General: comfortable and no acute distress Nutritional Appearance: a verage body habitus Orientation/consciousness: Other orientation findings (Unable to assess) HENMT: Head: normocephalic and atraumatic Ears: hearing grossly normal bilaterally Mouth: Yes moist mucous membranes Eyes: General: appearance normal, both eyes and all related structures P upils: Equal, round and reactive pupils present Neck: Neck: normal visual inspection and full ROM Resp: Effort & Inspection: no respiratory distress Auscultation: clear to auscultation bilaterally Cardio: Rate: regular rate Rhythm: regular rhythm Peripheral pulses: P eripheral pulses 2+ throughout GI: Inspection: non-distended and other (Gastrostomy tube in place and clamped) GI Palp: Yes Soft to palpation, Yes Tenderness to palpation present (GI) (Tenderness in the right upper quadrant at the open wound), No Guarding due to palpation present (GI), Yes No hepatosplenomegaly present and No Rebound tenderness present Auscultation: normal bowel sounds Other: RUQ small 1 x 1 cm open wound that appears very chronic in nature with dimpling of the skin and hypergranulation tissue at the surface, there is scant purulent drainage on the dressing and that did come from the open wound when expressing around it. No bilious-appearing output. There is no surrounding erythema or obvious fluctuant areas. There is some localized induration at the entrance of the open wound. I was able to probe the opening and met resistance at 3 cm depth and this was tender. Skin: General skin exam: normal color Neuro: General: other (limited exam, follows commands, weaker on mechanical service technician and movement on R exts.) Speech: aphasia and Expressive aphasia present Gait exam (Neuro): Unable to assess gait Extrem: General: normal to inspection and no edema Psych: Insight: Limited insight present (Psych) Judgement: Limited judgement present (Psych) Results Labs 09/11/24 14:17 09/12/24 07:33 Labs: Abnormal lab results 09/11/24 09/12/24 Range/Units 14:17 07:33 RBC 3.90 L (4.2-5.4) M/mm3 Hgb 10.3 L (12.0-15.0) g/dL Hct 32.1 L (37.0-47.0) % MPV 11.2 H (7.4-10.4) fl BUN 25 H D 20 H (7-17) mg/dL Creatinine 0.43 L 0.58 L (0.7-1.0) mg/dL Alkaline Phosphatase 128 H (38-126) U/L Diabetes panel 09/11/24 09/12/24 Range/Units 14:17 07:33 Sodium 138 139 (137-145) mmol/L Potassium 4.4 4.2 (3.4-5.0) mmol/L Chloride 102 105 (98-107) mmol/L Carbon Dioxide 27 26 (22-30) mmol/L BUN 25 H D 20 H (7-17) mg/dL Creatinine 0.43 L 0.58 L (0.7-1.0) mg/dL Glucose 88 82 (65-110) mg/dL Calcium 9.6 9.3 (8.4-10.2) mg/dL AST 23 (14-36) U/L ALT 21 (6-35) U/L Alkaline Phosphatase 128 H (38-126) U/L Total Protein 8.0 (6.3-8.2) g/dL Albumin 4.1 (3.5-5.1) g/dL Calcium panel 09/11/24 09/12/24 Range/Units 14:17 07:33 Calcium 9.6 9.3 (8.4-10.2) mg/dL Albumin 4.1 (3.5-5.1) g/dL Pituitary panel 09/11/24 09/12/24 Range/Units 14:17 07:33 Sodium 138 139 (137-145) mmol/L Potassium 4.4 4.2 (3.4-5.0) mmol/L Chloride 102 105 (98-107) mmol/L Carbon Dioxide 27 26 (22-30) mmol/L BUN 25 H D 20 H (7-17) mg/dL Creatinine 0.43 L 0.58 L (0.7-1.0) mg/dL Glucose 88 82 (65-110) mg/dL Calcium 9.6 9.3 (8.4-10.2) mg/dL Adrenal panel 09/11/24 09/12/24 Range/Units 14:17 07:33 Sodium 138 139 (137-145) mmol/L Potassium 4.4 4.2 (3.4-5.0) mmol/L Chloride 102 105 (98-107) mmol/L Carbon Dioxide 27 26 (22-30) mmol/L BUN 25 H D 20 H (7-17) mg/dL Creatinine 0.43 L 0.58 L (0.7-1.0) mg/dL Glucose 88 82 (65-110) mg/dL Calcium 9.6 9.3 (8.4-10.2) mg/dL Total Bilirubin 0.4 (0.2-1.3) mg/dL AST 23 (14-36) U/L ALT 21 (6-35) U/L Alkaline Phosphatase 128 H (38-126) U/L Total Protein 8.0 (6.3-8.2) g/dL Albumin 4.1 (3.5-5.1) g/dL All other labs normal. Imaging Additional studies: ITS Impressions Abdomen X-Ray 09/11/24 12:37 IMPRESSION: 1. Percutaneous gastrostomy tube tip and injected contrast in the stomach with no extraluminal contrast extravasation. 2. Reflux of contrast into a small sliding-type hiatal hernia. 3. 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 4. Cholelithiasis. Abdomen/Pelvis CT 09/11/24 15:17 IMPRESSION: 1. Decrease in size of a now 4.0 x 2.8 x 0.8 cm right upper quadrant anterior abdominal wall abscess versus biloma located along a prior cholecystostomy drainage catheter tract. 2. No acute intra-abdominal/pelvic process. 3. Cholelithiasis with small amount of gas within the gallbladder lumen which could be due to either prior sphincterotomy or passage of gas along the prior drainage catheter tract. 4. Percutaneous gastrostomy tube extends to the gastric antrum with distal bulb at the pylorus. No bowel obstruction.
[2024-09-12] MEDS: ATORVASTATIN 40 MG TABLET 80 MG FEED TUBE (20:53)
[2024-09-12] MEDS: EZETIMIBE 10 MG TABLET FEED TUBE (20:53)
[2024-09-13] MEDS: PIPERACILLN/TAZ 3.375GM/NS50ML 3.375 GM/50 ML BAG IVPB ×3 (05:11→17:19)
[2024-09-13 06:00] VITALS: BP 110/62; PULSE 81; RESP 20; TEMP 36.7; O2SAT 95
[2024-09-13] MEDS: CHOLECALCIFEROL 1,000 UNITS TABLET 1000 UNITS FEED TUBE (08:24)
[2024-09-13] MEDS: LORATADINE 10 MG TABLET FEED TUBE (08:24)
[2024-09-13] MEDS: ASPIRIN 81 MG CHEWABLE TABLET FEED TUBE (08:24)
[2024-09-13] MEDS: lisinopriL 5 MG TABLET FEED TUBE (08:24)
[2024-09-13] MEDS: ASCORBIC ACID 500 MG TABLET FEED TUBE (08:24)
[2024-09-13] MEDS: FLUoxetine HCL 20 MG CAPSULE FEED TUBE (08:24)
[2024-09-13 08:25] VITALS: PULSE 70
[2024-09-13 08:25] LABS: Hematocrit 36.2 % (37.0-47.0); Hemoglobin 11.3 g/dL (12.0-15.0); Mean Corpuscular HGB Conc 31.2 g/dl (32-36); Mean Corpuscular Hemoglobin 26.3 pg (26-34); Mean Corpuscular Volume 84.4 fl (80-100); Mean Platelet Volume 11.1 fl (7.4-10.4); Platelet Count Result 324 k/mm3 (150-375); Red Blood Count 4.29 M/mm3 (4.2-5.4); White Blood Count 5.9 K/mm3 (4.5-10.0)
[2024-09-13] MEDS: FAMOTIDINE 20 MG TABLET FEED TUBE ×2 (08:25→17:19)
[2024-09-13] MEDS: carvediloL 6.25 MG TABLET FEED TUBE ×2 (08:25→22:02)
[2024-09-13] MEDS: SERTRALINE HCL 25 MG TABLET 75 MG FEED TUBE (08:26)
[2024-09-13] MEDS: GENTAMICIN SULFATE 0.1% CR 15 GM TUBE 1 APPLIC TOPICAL (08:26)
[2024-09-13] MEDS: SILVER SULFADIAZINE 1% CR 400 GM JAR (*BKC) 1 APPLIC TOPICAL (08:26)
[2024-09-13] MEDS: FERROUS SULFATE LIQUID 325 MG/7.4 ML ELIXIR FEED TUBE ×2 (08:26→17:20)
[2024-09-13] MEDS: DICLOFENAC SODIUM 1% 100 GM GEL (*BKC) TOPICAL (08:27)
[2024-09-13 08:53] LABS: Alanine Aminotransferase 18 U/L (6-35); Albumin Level 3.9 g/dL (3.5-5.1); Alkaline Phosphatase 115 U/L (38-126); Anion Gap 10 mmol/L (4-12); Aspartate Amino Transferase 27 U/L (14-36); Bilirubin,Total 0.8 mg/dL (0.2-1.3); Blood Urea Nitrogen 20 mg/dL (7-17); Calcium 9.4 mg/dL (8.4-10.2); Carbon Dioxide 25 mmol/L (22-30); Chloride 106 mmol/L (98-107); Estimated CRCL calculation 54 ml/min; Estimated Glomerular Filt Rate > 60; Glucose 68 mg/dL (65-110); Potassium 4.4 mmol/L (3.4-5.0); Sodium 141 mmol/L (137-145)
[2024-09-13] MEDS: KETOROLAC 30 MG/ML VIAL (*BKC) IV PUSH (10:17)
--- NOTE | 2024-09-13 13:55 | P.PNIM_ITS ---
Progress Note: A&P Assessment and Plan (1) Right upper quadrant abdominal abscess: Code(s): K65.1 - Peritoneal abscess Status: Acute Assessment and Plan: Hx of acute cholecystitis in December 2020 treated with antibiotics and a cholecystostomy tube was placed to decompress the gallbladder. Tube was removed at some point and she was readmitted to the hospital in December 2022 with a right- sided abdominal wall abscess near the same site though no obvious connection to the gallbladder was seen. The area was I&D and improved with antibiotics. She was noted to have drainage coming from a small open area around the same site on 09/11. - Does not meet SIRS criteria. Vitals stable, WBC WNL. - Wound culture obtained on 09/11: pending - CT abdomen/pelvis: 1. Decrease in size of a now 4.0 x 2.8 x 0.8 cm right upper quadrant anterior abdominal wall abscess versus biloma located along a prior cholecystostomy drainage catheter tract. 2. No acute intra-abdominal/pelvic process. 3. Cholelithiasis with small amount of gas within the gallbladder lumen which could be due to either prior sphincterotomy or passage of gas along the prior drainage catheter tract. 4. Percutaneous gastrostomy tube extends to the gastric antrum with distal bulb at the pylorus. No bowel obstruction. 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 Start with local wound care with packing this open wound that is already open and draining 09/13 will order Dilaudid prn daily prior to dressing change as very painful surgery following- appreciate recommendations (2) Hypertension: Qualifiers: Hypertension type: essential hypertension Qualified Code(s): I10 - Essential (primary) hypertension Code(s): I10 - Essential (primary) hypertension Status: Chronic Assessment and Plan: Chronic, continue home medications - lisinopril 5 mg daily - continue home medications, blood pressures remain stable (3) Dyslipidemia: Code(s): E78.5 - Hyperlipidemia, unspecified Status: Acute Assessment and Plan: Chronic, continue atorvastatin 80 mg daily (4) Chronic anemia: Code(s): D64.9 - Anemia, unspecified Status: Acute Assessment and Plan: H/H 10.3/32.1 on admission, appears to be at baseline - Monitor with daily labs Time Spent With Patient Time with patient: 25 - 35 minutes Subjective Date/time seen: 09/13/24 13:55 Interval history: 64-year-old female with history of cerebrovascular accident and intracranial hemorrhage with resultant right hemiparesis, dysphagia, and expressive aphasia, hypertension, and dyslipidemia who presented to the hospital via EMS from her nursing facility for evaluation of discharge coming from an abdominal wound. Patient is seen and examined. Shakes her head yes and no secondary to her dysphagia. She denied any chest pain, shortness a breath, palpitations, nausea/vomiting, and abdominal pain. Not in a lot of pain during dressing changes. Review of Systems Review of Systems: unable to provide history given the aphasia however did shake her head yes/no for ROS Exam Narrative: General: female in no acute respiratory distress who is nontoxic appearing, lying semi recumbent in bed. HEENT: Normocephalic. Atraumatic. No facial asymmetry. Chest: Lungs are clear to auscultation bilaterally. No wheezes or crackles. CV: Heart was regular rate and rhythm. S1-S2. No murmurs, gallops, or rubs. Abd: Abdomen was soft. Nontender. Nondistended. Small open wound to the RUQ that appears chronic with small amount of purulent drainage. Ext: No clubbing, cyanosis, or edema. Neuro: Patient is alert. Speech is clear. Objective Data Vital Signs Vital Signs: Vital Signs - 24 hr 09/12/24 14:00 09/12/24 20:00 09/12/24 20:53 Temperature 97.8 F Pulse Rate 70 78 78 Respiratory Rate 18 18 Blood Pressure 120/70 Pulse Oximetry 96 96 Oxygen Delivery Room Air 09/12/24 22:00 09/13/24 06:00 09/13/24 08:00 Temperature 97.3 F L 98.0 F Pulse Rate 78 81 Respiratory Rate 20 20 Blood Pressure 107/58 L 110/62 Pulse Oximetry 94 95 Oxygen Delivery Room Air 09/13/24 08:25 Temperature Pulse Rate 70 Respiratory Rate Blood Pressure Pulse Oximetry Oxygen Delivery Intake/Output Intake/Output: Intake & Output 09/10/24 09/11/24 09/12/24 09/13/24 23:59 23:59 23:59 23:59 Intake Total 200 200 50 Balance 200 200 50 Meds/Results Medications: Active Medications Generic Name Dose Route Start Last Admin Trade Name Freq PRN Reason Stop Dose Admin Acetaminophen 650 mg 09/11/24 20:52 Acetaminophen 325 Mg Tablet PO Q6H PRN Mild Pain (1-3) or Fever Hydrocodone Bitart/Acetaminophen 1 tab 09/13/24 10:03 Hydrocodone/Acetaminophen (*Crx) 5-325 Mg Tablet PO Q4H PRN Pain Rated 4-6 Albuterol 2 puff 09/11/24 22:34 Albuterol Sulfate (*Sp) Aerosol 1 Puff INHALATION TID PRN Wheezing Ascorbic Acid 500 mg 09/12/24 09:00 09/13/24 08:24 Ascorbic Acid 500 Mg Tablet FEED TUBE 500 mg DAILY SANDRA Administration Aspirin 81 mg 09/12/24 09:00 09/13/24 08:24 Aspirin 81 Mg Chewable Tablet FEED TUBE 81 mg DAILY SANDRA Administration Atorvastatin Calcium 80 mg 09/11/24 22:20 09/12/24 20:53 Atorvastatin 40 Mg Tablet FEED TUBE 80 mg HS SANDRA Administration Bisacodyl 10 mg 09/11/24 22:11 Bisacodyl 10 Mg Suppository RECTAL DAILY PRN constipation Carvedilol 6.25 mg 09/11/24 22:20 09/13/24 08:25 Carvedilol 6.25 Mg Tablet FEED TUBE 6.25 mg Q12HR SANDRA Administration Diclofenac Sodium 0 applic 09/12/24 09:00 09/13/24 08:27 Diclofenac Sodium 1% 100 Gm Gel (*Bkc) TOPICAL 1 applic DAILY SANDRA Administration Ezetimibe 10 mg 09/11/24 22:20 09/12/24 20:53 Ezetimibe 10 Mg Tablet FEED TUBE 10 mg HS SANDRA Administration Famotidine 20 mg 09/11/24 22:20 09/13/24 08:25 Famotidine 20 Mg Tablet FEED TUBE 20 mg BID SANDRA Administration Ferrous Sulfate 325 mg 09/12/24 09:00 09/13/24 08:26 Ferrous Sulfate Liquid 325 Mg/7.4 Ml Elixir FEED TUBE 325 mg BID SANDRA Administration Fluoxetine HCl 20 mg 09/12/24 09:00 09/13/24 08:24 Fluoxetine Hcl 20 Mg Capsule FEED TUBE 20 mg DAILY SANDRA Administration Gentamicin Sulfate 1 applic 09/12/24 09:00 09/13/24 08:26 Gentamicin Sulfate 0.1% Cr 15 Gm Tube TOPICAL 10/02/24 09:01 1 applic DAILY SANDRA Administration Hydromorphone HCl 0.5 mg 09/13/24 13:53 Hydromorphone Hcl Inj (*Crx) 1 Mg/Ml Syr IV PUSH DAILY PRN pain Piperacillin/Tazobactam/Dextrose 3.375 gm in 50 mls @ 100 mls/hr 09/11/24 23:00 09/13/24 12:12 Zosyn 3.375 Gm/Ns 50 Ml IVPB 100 mls/hr Q6HR SANDRA Administration Lisinopril 5 mg 09/12/24 09:00 09/13/24 08:24 Lisinopril 5 Mg Tablet FEED TUBE 5 mg DAILY SANDRA Administration Loratadine 10 mg 09/12/24 09:00 09/13/24 08:24 Loratadine 10 Mg Tablet FEED TUBE 10 mg DAILY SANDRA Administration Sertraline HCl 75 mg 09/12/24 09:00 09/13/24 08:26 Sertraline Hcl 25 Mg Tablet FEED TUBE 75 mg DAILY SANDRA Administration Silver Sulfadiazine 1 applic 09/12/24 09:00 09/13/24 08:26 Silver Sulfadiazine 1% Cr 400 Gm Jar (*Bkc) TOPICAL 1 applic DAILY SANDRA Administration Vitamin D 1,000 units 09/12/24 09:00 09/13/24 08:24 Cholecalciferol 1,000 Units Tablet FEED TUBE 1,000 units DAILY SANDRA Administration Radiology Results: ITS Impressions Abdomen X-Ray 09/11/24 12:37 IMPRESSION: 1. Percutaneous gastrostomy tube tip and injected contrast in the stomach with no extraluminal contrast extravasation. 2. Reflux of contrast into a small sliding-type hiatal hernia. 3. 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 4. Cholelithiasis. Abdomen/Pelvis CT 09/11/24 15:17 IMPRESSION: 1. Decrease in size of a now 4.0 x 2.8 x 0.8 cm right upper quadrant anterior abdominal wall abscess versus biloma located along a prior cholecystostomy drainage catheter tract. 2. No acute intra-abdominal/pelvic process. 3. Cholelithiasis with small amount of gas within the gallbladder lumen which could be due to either prior sphincterotomy or passage of gas along the prior drainage catheter tract. 4. Percutaneous gastrostomy tube extends to the gastric antrum with distal bulb at the pylorus. No bowel obstruction. Labs Labs: Laboratory Results - last 24 hr 09/13/24 07:27 WBC 5.9 RBC 4.29 Hgb 11.3 L Hct 36.2 L MCV 84.4 MCH 26.3 MCHC 31.2 L RDW 14.0 Plt Count 324 MPV 11.1 H Sodium 141 Potassium 4.4 Chloride 106 Carbon Dioxide 25 Anion Gap 10 BUN 20 H Creatinine 0.67 L Estim Creat Clear Calc 54 Estimated GFR > 60 Glucose 68 Calcium 9.4 Total Bilirubin 0.8 AST 27 ALT 18 Alkaline Phosphatase 115 Total Protein 7.0 Albumin 3.9 Quality VTE Prophylaxis VTE prophylaxis: mechanical ordered
[2024-09-13 14:58] VITALS: BP 96/57; PULSE 69; RESP 16; TEMP 36.3; O2SAT 98
--- NOTE | 2024-09-13 16:18 | P.PNGS_ITS ---
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 Overall poor surgical candidate and concerns for poor healing if she had further surgical management. No family to discuss treatment options with as her sons are in prison and the [place] [facility] is attempting to gain guardianship for the patient. (3) Chronic cholecystitis with calculus: Code(s): K80.10 - Calculus of gallbladder with chronic cholecystitis without obstruction Status: Acute Plan I have discussed the patient's case and plan of care with Dr. Tse. Subjective Subjective Date/Time Seen: 09/13/24 16:18 Interval history: Patient more alert and responsive today. She attempted to verbalize something while I was in the room but with her garbled speech, I was unable to determine what she said. She denied any abdominal pain. Per nursing, the RUQ wound was difficult to pack due to the small opening and they encountered some minor bleeding when packing, which has since stopped. But packing the wound was very uncomfortable for the patient. Exam Const: General: comfortable and no acute distress Orientation/consciousness: Other orientation findings (Unable to assess) GI: Inspection: non-distended and other (Gastrostomy tube in place and clamped) GI Palp: Yes Soft to palpation, Yes Tenderness to palpation present (GI) (only minimal tenderness directly over the RUQ wound) and No Guarding due to palpation present (GI) Auscultation: normal bowel sounds Other: RUQ small 1 x 1 cm open wound that appears very chronic in nature with dimpling of the skin and packing in place today with minimal bloody drainage on gauze dressing, no purulent drainage, and otherwise unchanged Objective Data Vital Signs Vital Signs: Vital Signs - 24 hr 09/12/24 20:00 09/12/24 20:53 09/12/24 22:00 Temperature 97.3 F L Pulse Rate 78 78 78 Respiratory Rate 18 20 Blood Pressure 107/58 L Pulse Oximetry 96 94 Oxygen Delivery Room Air 09/13/24 06:00 09/13/24 08:00 09/13/24 08:25 Temperature 98.0 F Pulse Rate 81 70 Respiratory Rate 20 Blood Pressure 110/62 Pulse Oximetry 95 Oxygen Delivery Room Air 09/13/24 14:58 Temperature 97.3 F L Pulse Rate 69 Respiratory Rate 16 Blood Pressure 96/57 L Pulse Oximetry 98 Oxygen Delivery Intake/Output Intake/Output: Intake & Output 09/10/24 09/11/24 09/12/24 09/13/24 23:59 23:59 23:59 23:59 Intake Total 200 200 50 Balance 200 200 50 Meds/Results Medications: Active Medications Generic Name Dose Route Start Last Admin Trade Name Freq PRN Reason Stop Dose Admin Acetaminophen 650 mg 09/11/24 20:52 Acetaminophen 325 Mg Tablet PO Q6H PRN Mild Pain (1-3) or Fever Hydrocodone Bitart/Acetaminophen 1 tab 09/13/24 10:03 Hydrocodone/Acetaminophen (*Crx) 5-325 Mg Tablet PO Q4H PRN Pain Rated 4-6 Albuterol 2 puff 09/11/24 22:34 Albuterol Sulfate (*Sp) Aerosol 1 Puff INHALATION TID PRN Wheezing Ascorbic Acid 500 mg 09/12/24 09:00 09/13/24 08:24 Ascorbic Acid 500 Mg Tablet FEED TUBE 500 mg DAILY SANDRA Administration Aspirin 81 mg 09/12/24 09:00 09/13/24 08:24 Aspirin 81 Mg Chewable Tablet FEED TUBE 81 mg DAILY SANDRA Administration Atorvastatin Calcium 80 mg 09/11/24 22:20 09/12/24 20:53 Atorvastatin 40 Mg Tablet FEED TUBE 80 mg HS SANDRA Administration Bisacodyl 10 mg 09/11/24 22:11 Bisacodyl 10 Mg Suppository RECTAL DAILY PRN constipation Carvedilol 6.25 mg 09/11/24 22:20 09/13/24 08:25 Carvedilol 6.25 Mg Tablet FEED TUBE 6.25 mg Q12HR SANDRA Administration Diclofenac Sodium 0 applic 09/12/24 09:00 09/13/24 08:27 Diclofenac Sodium 1% 100 Gm Gel (*Bkc) TOPICAL 1 applic DAILY SANDRA Administration Ezetimibe 10 mg 09/11/24 22:20 09/12/24 20:53 Ezetimibe 10 Mg Tablet FEED TUBE 10 mg HS SANDRA Administration Famotidine 20 mg 09/11/24 22:20 09/13/24 08:25 Famotidine 20 Mg Tablet FEED TUBE 20 mg BID SANDRA Administration Ferrous Sulfate 325 mg 09/12/24 09:00 09/13/24 08:26 Ferrous Sulfate Liquid 325 Mg/7.4 Ml Elixir FEED TUBE 325 mg BID SANRDA Administration Fluoxetine HCl 20 mg 09/12/24 09:00 09/13/24 08:24 Fluoxetine Hcl 20 Mg Capsule FEED TUBE 20 mg DAILY SANDRA Administration Gentamicin Sulfate 1 applic 09/12/24 09:00 09/13/24 08:26 Gentamicin Sulfate 0.1% Cr 15 Gm Tube TOPICAL 10/02/24 09:01 1 applic DAILY SANDRA Administration Hydromorphone HCl 0.5 mg 09/13/24 13:53 Hydromorphone Hcl Inj (*Crx) 1 Mg/Ml Syr IV PUSH DAILY PRN pain Piperacillin/Tazobactam/Dextrose 3.375 gm in 50 mls @ 100 mls/hr 09/11/24 23:00 09/13/24 12:12 Zosyn 3.375 Gm/Ns 50 Ml IVPB 100 mls/hr Q6HR SANDRA Administration Lisinopril 5 mg 09/12/24 09:00 09/13/24 08:24 Lisinopril 5 Mg Tablet FEED TUBE 5 mg DAILY SANDRA Administration Loratadine 10 mg 09/12/24 09:00 09/13/24 08:24 Loratadine 10 Mg Tablet FEED TUBE 10 mg DAILY SANDRA Administration Sertraline HCl 75 mg 09/12/24 09:00 09/13/24 08:26 Sertraline Hcl 25 Mg Tablet FEED TUBE 75 mg DAILY SANDRA Administration Silver Sulfadiazine 1 applic 09/12/24 09:00 09/13/24 08:26 Silver Sulfadiazine 1% Cr 400 Gm Jar (*Bkc) TOPICAL 1 applic DAILY SANDRA Administration Vitamin D 1,000 units 09/12/24 09:00 09/13/24 08:24 Cholecalciferol 1,000 Units Tablet FEED TUBE 1,000 units DAILY SANDRA Administration Radiology Results: ITS Impressions Abdomen X-Ray 09/11/24 12:37 IMPRESSION: 1. Percutaneous gastrostomy tube tip and injected contrast in the stomach with no extraluminal contrast extravasation. 2. Reflux of contrast into a small sliding-type hiatal hernia. 3. 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 4. Cholelithiasis. Abdomen/Pelvis CT 09/11/24 15:17 IMPRESSION: 1. Decrease in size of a now 4.0 x 2.8 x 0.8 cm right upper quadrant anterior abdominal wall abscess versus biloma located along a prior cholecystostomy drainage catheter tract. 2. No acute intra-abdominal/pelvic process. 3. Cholelithiasis with small amount of gas within the gallbladder lumen which could be due to either prior sphincterotomy or passage of gas along the prior drainage catheter tract. 4. Percutaneous gastrostomy tube extends to the gastric antrum with distal bulb at the pylorus. No bowel obstruction. Labs Labs: Laboratory Results - last 24 hr 09/13/24 07:27 WBC 5.9 RBC 4.29 Hgb 11.3 L Hct 36.2 L MCV 84.4 MCH 26.3 MCHC 31.2 L RDW 14.0 Plt Count 324 MPV 11.1 H Sodium 141 Potassium 4.4 Chloride 106 Carbon Dioxide 25 Anion Gap 10 BUN 20 H Creatinine 0.67 L Estim Creat Clear Calc 54 Estimated GFR > 60 Glucose 68 Calcium 9.4 Total Bilirubin 0.8 AST 27 ALT 18 Alkaline Phosphatase 115 Total Protein 7.0 Albumin 3.9
[2024-09-13 21:41] VITALS: BP 122/74; PULSE 71; RESP 16; TEMP 36.6; O2SAT 100
[2024-09-13 22:02] VITALS: PULSE 71
[2024-09-13] MEDS: ATORVASTATIN 40 MG TABLET 80 MG FEED TUBE (22:02)
[2024-09-13] MEDS: EZETIMIBE 10 MG TABLET FEED TUBE (22:03)
[2024-09-14] MEDS: PIPERACILLN/TAZ 3.375GM/NS50ML 3.375 GM/50 ML BAG IVPB ×3 (01:03→12:49)
[2024-09-14 06:00] VITALS: BP 109/65; PULSE 78; RESP 20; TEMP 36.6; O2SAT 100
[2024-09-14 06:22] LABS: Hematocrit 35.5 % (37.0-47.0); Hemoglobin 10.9 g/dL (12.0-15.0); Mean Corpuscular HGB Conc 30.7 g/dl (32-36); Mean Corpuscular Hemoglobin 26.1 pg (26-34); Mean Corpuscular Volume 84.9 fl (80-100); Mean Platelet Volume 10.8 fl (7.4-10.4); Platelet Count Result 318 k/mm3 (150-375); Red Blood Count 4.18 M/mm3 (4.2-5.4); Red Cell Distribution Width 14.2 % (11.5-14.5)
[2024-09-14] MEDS: HYDROcodone/acetaminophen (*CRX) 5-325 MG TABLET 1 TAB PO (08:49)
[2024-09-14] MEDS: SERTRALINE HCL 25 MG TABLET 75 MG FEED TUBE (08:50)
[2024-09-14 08:51] VITALS: PULSE 63
[2024-09-14] MEDS: FAMOTIDINE 20 MG TABLET FEED TUBE ×2 (08:51→16:45)
[2024-09-14] MEDS: lisinopriL 5 MG TABLET FEED TUBE (08:51)
[2024-09-14] MEDS: ASCORBIC ACID 500 MG TABLET FEED TUBE (08:51)
[2024-09-14] MEDS: CHOLECALCIFEROL 1,000 UNITS TABLET 1000 UNITS FEED TUBE (08:51)
[2024-09-14] MEDS: ASPIRIN 81 MG CHEWABLE TABLET FEED TUBE (08:51)
[2024-09-14] MEDS: FLUoxetine HCL 20 MG CAPSULE FEED TUBE (08:51)
[2024-09-14] MEDS: carvediloL 6.25 MG TABLET FEED TUBE ×2 (08:51→20:53)
[2024-09-14] MEDS: LORATADINE 10 MG TABLET FEED TUBE (08:52)
[2024-09-14] MEDS: FERROUS SULFATE LIQUID 325 MG/7.4 ML ELIXIR FEED TUBE ×2 (08:52→16:45)
[2024-09-14] MEDS: SILVER SULFADIAZINE 1% CR 400 GM JAR (*BKC) 1 APPLIC TOPICAL (08:53)
[2024-09-14] MEDS: DICLOFENAC SODIUM 1% 100 GM GEL (*BKC) TOPICAL (08:53)
[2024-09-14] MEDS: GENTAMICIN SULFATE 0.1% CR 15 GM TUBE 1 APPLIC TOPICAL (08:53)
--- NOTE | 2024-09-14 09:06 | PM.PNGS ---
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 fistula, poor surgical candidate, cont local wound care, no s/s active infection and WBC normal, ok to dc from surgical standpoint, f/u prn Subjective Subjective Date/Time Seen: 09/14/24 09:06 Interval history: no acute issues Review of Systems Review of Systems: All systems reviewed & are unremarkable except as noted in HPI and below Exam Const: General: no acute distress, ill appearing and cachectic Resp: Auscultation: diminished lung sounds Cardio: Rate: regular rate Rhythm: regular rhythm GI: Inspection: normal to inspection and non-distended GI Palp: Yes abdominal tenderness, Yes Soft to palpation and Yes Tenderness to palpation present (GI) Other: RUQ wound - no drainage, PEG - C/D/I Objective Data Vital Signs Vital Signs: Vital Signs - 24 hr 09/13/24 14:58 09/13/24 21:41 09/13/24 21:55 Temperature 36.3 C L 36.6 C Pulse Rate 69 71 Respiratory Rate 16 16 Blood Pressure 96/57 L 122/74 Pulse Oximetry 98 100 Oxygen Delivery Room Air 09/13/24 22:02 09/14/24 06:00 09/14/24 08:51 Temperature 36.6 C Pulse Rate 71 78 63 Respiratory Rate 20 Blood Pressure 109/65 Pulse Oximetry 100 Oxygen Delivery Intake/Output Intake/Output: Intake & Output 09/11/24 09/12/24 09/13/24 09/14/24 23:59 23:59 23:59 23:59 Intake Total 200 200 150 100 Balance 200 200 150 100 Meds/Results Medications: Active Medications Generic Name Dose Route Start Last Admin Trade Name Freq PRN Reason Stop Dose Admin Acetaminophen 650 mg 09/11/24 20:52 Acetaminophen 325 Mg Tablet PO Q6H PRN Mild Pain (1-3) or Fever Hydrocodone Bitart/Acetaminophen 1 tab 09/13/24 10:03 09/14/24 08:49 Hydrocodone/Acetaminophen (*Crx) 5-325 Mg Tablet PO 1 tab Q4H PRN Administration Pain Rated 4-6 Albuterol 2 puff 09/11/24 22:34 Albuterol Sulfate (*Sp) Aerosol 1 Puff INHALATION TID PRN Wheezing Ascorbic Acid 500 mg 09/12/24 09:00 09/14/24 08:51 Ascorbic Acid 500 Mg Tablet FEED TUBE 500 mg DAILY SANDRA Administration Aspirin 81 mg 09/12/24 09:00 09/14/24 08:51 Aspirin 81 Mg Chewable Tablet FEED TUBE 81 mg DAILY SANDRA Administration Atorvastatin Calcium 80 mg 09/11/24 22:20 09/13/24 22:02 Atorvastatin 40 Mg Tablet FEED TUBE 80 mg HS SANDRA Administration Bisacodyl 10 mg 09/11/24 22:11 Bisacodyl 10 Mg Suppository RECTAL DAILY PRN constipation Carvedilol 6.25 mg 09/11/24 22:20 09/14/24 08:51 Carvedilol 6.25 Mg Tablet FEED TUBE 6.25 mg Q12HR SANDRA Administration Diclofenac Sodium 0 applic 09/12/24 09:00 09/14/24 08:53 Diclofenac Sodium 1% 100 Gm Gel (*Bkc) TOPICAL 1 applic DAILY SANDRA Administration Ezetimibe 10 mg 09/11/24 22:20 09/13/24 22:03 Ezetimibe 10 Mg Tablet FEED TUBE 10 mg HS SANDRA Administration Famotidine 20 mg 09/11/24 22:20 09/14/24 08:51 Famotidine 20 Mg Tablet FEED TUBE 20 mg BID SANDRA Administration Ferrous Sulfate 325 mg 09/12/24 09:00 09/14/24 08:52 Ferrous Sulfate Liquid 325 Mg/7.4 Ml Elixir FEED TUBE 325 mg BID SANDRA Administration Fluoxetine HCl 20 mg 09/12/24 09:00 09/14/24 08:51 Fluoxetine Hcl 20 Mg Capsule FEED TUBE 20 mg DAILY SANDRA Administration Gentamicin Sulfate 1 applic 09/12/24 09:00 09/14/24 08:53 Gentamicin Sulfate 0.1% Cr 15 Gm Tube TOPICAL 10/02/24 09:01 1 applic DAILY SANDRA Administration Hydromorphone HCl 0.5 mg 09/13/24 13:53 Hydromorphone Hcl Inj (*Crx) 1 Mg/Ml Syr IV PUSH DAILY PRN pain Piperacillin/Tazobactam/Dextrose 3.375 gm in 50 mls @ 100 mls/hr 09/11/24 23:00 09/14/24 06:21 Zosyn 3.375 Gm/Ns 50 Ml IVPB Infused Q6HR [facility] Infusion Lisinopril 5 mg 09/12/24 09:00 09/14/24 08:51 Lisinopril 5 Mg Tablet FEED TUBE 5 mg DAILY SANDRA Administration Loratadine 10 mg 09/12/24 09:00 09/14/24 08:52 Loratadine 10 Mg Tablet FEED TUBE 10 mg DAILY SANDRA Administration Sertraline HCl 75 mg 09/12/24 09:00 09/14/24 08:50 Sertraline Hcl 25 Mg Tablet FEED TUBE 75 mg DAILY SANDRA Administration Silver Sulfadiazine 1 applic 09/12/24 09:00 09/14/24 08:53 Silver Sulfadiazine 1% Cr 400 Gm Jar (*Bkc) TOPICAL 1 applic DAILY SANDRA Administration Vitamin D 1,000 units 09/12/24 09:00 09/14/24 08:51 Cholecalciferol 1,000 Units Tablet FEED TUBE 1,000 units DAILY SANDRA Administration Radiology Results: ITS Impressions Abdomen X-Ray 09/11/24 12:37 IMPRESSION: 1. Percutaneous gastrostomy tube tip and injected contrast in the stomach with no extraluminal contrast extravasation. 2. Reflux of contrast into a small sliding-type hiatal hernia. 3. 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 4. Cholelithiasis. Abdomen/Pelvis CT 09/11/24 15:17 IMPRESSION: 1. Decrease in size of a now 4.0 x 2.8 x 0.8 cm right upper quadrant anterior abdominal wall abscess versus biloma located along a prior cholecystostomy drainage catheter tract. 2. No acute intra-abdominal/pelvic process. 3. Cholelithiasis with small amount of gas within the gallbladder lumen which could be due to either prior sphincterotomy or passage of gas along the prior drainage catheter tract. 4. Percutaneous gastrostomy tube extends to the gastric antrum with distal bulb at the pylorus. No bowel obstruction. Labs Labs: Laboratory Results - last 24 hr 09/14/24 05:55 WBC 7.0 RBC 4.18 L Hgb 10.9 L Hct 35.5 L MCV 84.9 MCH 26.1 MCHC 30.7 L RDW 14.2 Plt Count 318 MPV 10.8 H
--- NOTE | 2024-09-14 10:38 | PCDIET ---
Nutrition note: Surgery signed off and okayed with provider Nedra to restart home tube feeding orders: Jevity 1.5 @ 50 ml/h with water flushes 150 ml q 4 hours. Provides 1650 kcal, 70 g protein, 1736 ml free water at goal. Meets estimated nutrition needs @ 37 kcal/kg and 1.6 g protein/kg. Adequate for needs. Orders placed. Follow up Wednesday/Wednesday.
[2024-09-14 14:00] VITALS: BP 90/50; PULSE 65; RESP 20; TEMP 36.4; O2SAT 98
--- NOTE | 2024-09-14 14:28 | P.PNIM_ITS ---
Progress Note: A&P Assessment and Plan (1) Right upper quadrant abdominal abscess: Code(s): K65.1 - Peritoneal abscess Status: Acute Assessment and Plan: Hx of acute cholecystitis in December 2020 treated with antibiotics and a cholecystostomy tube was placed to decompress the gallbladder. Tube was removed at some point and she was readmitted to the hospital in December 2022 with a right- sided abdominal wall abscess near the same site though no obvious connection to the gallbladder was seen. The area was I&D and improved with antibiotics. She was noted to have drainage coming from a small open area around the same site on 09/11. - Does not meet SIRS criteria. Vitals stable, WBC WNL. - Wound culture obtained on 09/11: pending - CT abdomen/pelvis: 1. Decrease in size of a now 4.0 x 2.8 x 0.8 cm right upper quadrant anterior abdominal wall abscess versus biloma located along a prior cholecystostomy drainage catheter tract. 2. No acute intra-abdominal/pelvic process. 3. Cholelithiasis with small amount of gas within the gallbladder lumen which could be due to either prior sphincterotomy or passage of gas along the prior drainage catheter tract. 4. Percutaneous gastrostomy tube extends to the gastric antrum with distal bulb at the pylorus. No bowel obstruction. 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 Start with local wound care with packing this open wound that is already open and draining 09/13 will order Dilaudid prn daily prior to dressing change as very painful surgery following- appreciate recommendations 09/14 surgery signed off. will switch to PO antibiotics and finish the course. Anticipate discharge back to the facility tomorrow if stable overnight. (2) Hypertension: Qualifiers: Hypertension type: essential hypertension Qualified Code(s): I10 - Essential (primary) hypertension Code(s): I10 - Essential (primary) hypertension Status: Chronic Assessment and Plan: Chronic, continue home medications - lisinopril 5 mg daily - continue home medications, blood pressures remain stable (3) Dyslipidemia: Code(s): E78.5 - Hyperlipidemia, unspecified Status: Acute Assessment and Plan: Chronic, continue atorvastatin 80 mg daily (4) Chronic anemia: Code(s): D64.9 - Anemia, unspecified Status: Acute Assessment and Plan: H/H 10.3/32.1 on admission, appears to be at baseline - Monitor with daily labs Time Spent With Patient Time with patient: 25 - 35 minutes Subjective Date/time seen: 09/14/24 14:28 Interval history: 64-year-old female with history of cerebrovascular accident and intracranial hemorrhage with resultant right hemiparesis, dysphagia, and expressive aphasia, hypertension, and dyslipidemia who presented to the hospital via EMS from her nursing facility for evaluation of discharge coming from an abdominal wound. Patient is seen and examined. Shakes her head yes and no secondary to her dysphagia. She denied any chest pain, shortness a breath, palpitations, nausea/vomiting, and abdominal pain. Not in a lot of pain during dressing changes. surgery sign off. Antibiotics downgraded to PO and anticipate discharge back to facility tomorrow. Review of Systems Review of Systems: unable to provide history given the aphasia however did shake her head yes/no for ROS Exam Narrative: General: female in no acute respiratory distress who is nontoxic appearing, lying semi recumbent in bed. HEENT: Normocephalic. Atraumatic. No facial asymmetry. Chest: Lungs are clear to auscultation bilaterally. No wheezes or crackles. CV: Heart was regular rate and rhythm. S1-S2. No murmurs, gallops, or rubs. Abd: Abdomen was soft. Nontender. Nondistended. Small open wound to the RUQ that appears chronic with small amount of purulent drainage. Ext: No clubbing, cyanosis, or edema. Neuro: Patient is alert. Speech is clear. Objective Data Vital Signs Vital Signs: Vital Signs - 24 hr 09/13/24 14:58 09/13/24 21:41 09/13/24 21:55 Temperature 97.3 F L 97.9 F Pulse Rate 69 71 Respiratory Rate 16 16 Blood Pressure 96/57 L 122/74 Pulse Oximetry 98 100 Oxygen Delivery Room Air 09/13/24 22:02 09/14/24 06:00 09/14/24 08:00 Temperature 97.9 F Pulse Rate 71 78 Respiratory Rate 20 Blood Pressure 109/65 Pulse Oximetry 100 Oxygen Delivery Room Air 09/14/24 08:51 Temperature Pulse Rate 63 Respiratory Rate Blood Pressure Pulse Oximetry Oxygen Delivery Intake/Output Intake/Output: Intake & Output 09/11/24 09/12/24 09/13/24 09/14/24 23:59 23:59 23:59 23:59 Intake Total 200 200 150 100 Balance 200 200 150 100 Meds/Results Medications: Active Medications Generic Name Dose Route Start Last Admin Trade Name Freq PRN Reason Stop Dose Admin Acetaminophen 650 mg 09/11/24 20:52 Acetaminophen 325 Mg Tablet PO Q6H PRN Mild Pain (1-3) or Fever Hydrocodone Bitart/Acetaminophen 1 tab 09/13/24 10:03 09/14/24 08:49 Hydrocodone/Acetaminophen (*Crx) 5-325 Mg Tablet PO 1 tab Q4H PRN Administration Pain Rated 4-6 Albuterol 2 puff 09/11/24 22:34 Albuterol Sulfate (*Sp) Aerosol 1 Puff INHALATION TID PRN Wheezing Amoxicillin/Clavulanate Potassium 1 tablet 09/14/24 21:00 Amoxicillin/Clavulanate K 875-125 Mg Tab PO 09/18/24 20:59 Q12HR SANDRA Ascorbic Acid 500 mg 09/12/24 09:00 09/14/24 08:51 Ascorbic Acid 500 Mg Tablet FEED TUBE 500 mg DAILY SANDRA Administration Aspirin 81 mg 09/12/24 09:00 09/14/24 08:51 Aspirin 81 Mg Chewable Tablet FEED TUBE 81 mg DAILY SANDRA Administration Atorvastatin Calcium 80 mg 09/11/24 22:20 09/13/24 22:02 Atorvastatin 40 Mg Tablet FEED TUBE 80 mg HS SANDRA Administration Bisacodyl 10 mg 09/11/24 22:11 Bisacodyl 10 Mg Suppository RECTAL DAILY PRN constipation Carvedilol 6.25 mg 09/11/24 22:20 09/14/24 08:51 Carvedilol 6.25 Mg Tablet FEED TUBE 6.25 mg Q12HR SANDRA Administration Diclofenac Sodium 0 applic 09/12/24 09:00 09/14/24 08:53 Diclofenac Sodium 1% 100 Gm Gel (*Bkc) TOPICAL 1 applic DAILY SANDRA Administration Ezetimibe 10 mg 09/11/24 22:20 09/13/24 22:03 Ezetimibe 10 Mg Tablet FEED TUBE 10 mg HS SANDRA Administration Famotidine 20 mg 09/11/24 22:20 09/14/24 08:51 Famotidine 20 Mg Tablet FEED TUBE 20 mg BID SANDRA Administration Ferrous Sulfate 325 mg 09/12/24 09:00 09/14/24 08:52 Ferrous Sulfate Liquid 325 Mg/7.4 Ml Elixir FEED TUBE 325 mg BID SANDRA Administration Fluoxetine HCl 20 mg 09/12/24 09:00 09/14/24 08:51 Fluoxetine Hcl 20 Mg Capsule FEED TUBE 20 mg DAILY SANDRA Administration Gentamicin Sulfate 1 applic 09/12/24 09:00 09/14/24 08:53 Gentamicin Sulfate 0.1% Cr 15 Gm Tube TOPICAL 10/02/24 09:01 1 applic DAILY SANDRA Administration Hydromorphone HCl 0.5 mg 09/13/24 13:53 Hydromorphone Hcl Inj (*Crx) 1 Mg/Ml Syr IV PUSH DAILY PRN pain Lisinopril 5 mg 09/12/24 09:00 09/14/24 08:51 Lisinopril 5 Mg Tablet FEED TUBE 5 mg DAILY SANDRA Administration Loratadine 10 mg 09/12/24 09:00 09/14/24 08:52 Loratadine 10 Mg Tablet FEED TUBE 10 mg DAILY SANDRA Administration Sertraline HCl 75 mg 09/12/24 09:00 09/14/24 08:50 Sertraline Hcl 25 Mg Tablet FEED TUBE 75 mg DAILY SANDRA Administration Silver Sulfadiazine 1 applic 09/12/24 09:00 09/14/24 08:53 Silver Sulfadiazine 1% Cr 400 Gm Jar (*Bkc) TOPICAL 1 applic DAILY SANDRA Administration Vitamin D 1,000 units 09/12/24 09:00 09/14/24 08:51 Cholecalciferol 1,000 Units Tablet FEED TUBE 1,000 units DAILY SANDRA Administration Radiology Results: ITS Impressions Abdomen X-Ray 09/11/24 12:37 IMPRESSION: 1. Percutaneous gastrostomy tube tip and injected contrast in the stomach with no extraluminal contrast extravasation. 2. Reflux of contrast into a small sliding-type hiatal hernia. 3. 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 4. Cholelithiasis. Abdomen/Pelvis CT 09/11/24 15:17 IMPRESSION: 1. Decrease in size of a now 4.0 x 2.8 x 0.8 cm right upper quadrant anterior abdominal wall abscess versus biloma located along a prior cholecystostomy drainage catheter tract. 2. No acute intra-abdominal/pelvic process. 3. Cholelithiasis with small amount of gas within the gallbladder lumen which could be due to either prior sphincterotomy or passage of gas along the prior drainage catheter tract. 4. Percutaneous gastrostomy tube extends to the gastric antrum with distal bulb at the pylorus. No bowel obstruction. Labs Labs: Laboratory Results - last 24 hr 09/14/24 05:55 WBC 7.0 RBC 4.18 L Hgb 10.9 L Hct 35.5 L MCV 84.9 MCH 26.1 MCHC 30.7 L RDW 14.2 Plt Count 318 MPV 10.8 H Quality VTE Prophylaxis VTE prophylaxis: mechanical ordered
[2024-09-14 20:00] VITALS: PULSE 65; RESP 20; O2SAT 98
[2024-09-14] MEDS: AMOXICILLIN/CLAVULANATE K 875-125 MG TAB 1 TABLET PO (20:53)
[2024-09-14] MEDS: EZETIMIBE 10 MG TABLET FEED TUBE (20:53)
[2024-09-14] MEDS: ATORVASTATIN 40 MG TABLET 80 MG FEED TUBE (20:53)
[2024-09-14 22:12] VITALS: BP 98/52; PULSE 62; RESP 16; TEMP 36.4; O2SAT 95
[2024-09-15 05:06] VITALS: BP 104/57; PULSE 65; RESP 16; TEMP 36.5; O2SAT 99
[2024-09-15 07:15] LABS: Glucose Point of Care 124 mg/dl (65-105)
[2024-09-15 07:21] LABS: Hemoglobin 10.4 g/dL (12.0-15.0); Mean Corpuscular HGB Conc 30.6 g/dl (32-36); Mean Corpuscular Hemoglobin 25.9 pg (26-34); Mean Corpuscular Volume 84.8 fl (80-100); Mean Platelet Volume 10.5 fl (7.4-10.4); Platelet Count Result 299 k/mm3 (150-375); Red Blood Count 4.01 M/mm3 (4.2-5.4); White Blood Count 6.7 K/mm3 (4.5-10.0)
[2024-09-15 08:18] VITALS: PULSE 63
[2024-09-15] MEDS: FAMOTIDINE 20 MG TABLET FEED TUBE (08:18)
[2024-09-15] MEDS: lisinopriL 5 MG TABLET FEED TUBE (08:18)
[2024-09-15] MEDS: carvediloL 6.25 MG TABLET FEED TUBE (08:18)
[2024-09-15] MEDS: SERTRALINE HCL 25 MG TABLET 75 MG FEED TUBE (08:18)
[2024-09-15] MEDS: LORATADINE 10 MG TABLET FEED TUBE (08:18)
[2024-09-15] MEDS: ASPIRIN 81 MG CHEWABLE TABLET FEED TUBE (08:18)
[2024-09-15] MEDS: FLUoxetine HCL 20 MG CAPSULE FEED TUBE (08:18)
[2024-09-15] MEDS: AMOXICILLIN/CLAVULANATE K 875-125 MG TAB 1 TABLET PO (08:18)
[2024-09-15] MEDS: ASCORBIC ACID 500 MG TABLET FEED TUBE (08:18)
[2024-09-15] MEDS: FERROUS SULFATE LIQUID 325 MG/7.4 ML ELIXIR FEED TUBE (08:19)
[2024-09-15] MEDS: CHOLECALCIFEROL 1,000 UNITS TABLET 1000 UNITS FEED TUBE (08:19)
[2024-09-15] MEDS: SILVER SULFADIAZINE 1% CR 400 GM JAR (*BKC) 1 APPLIC TOPICAL (08:20)
[2024-09-15] MEDS: GENTAMICIN SULFATE 0.1% CR 15 GM TUBE 1 APPLIC TOPICAL (08:20)
[2024-09-15] MEDS: DICLOFENAC SODIUM 1% 100 GM GEL (*BKC) TOPICAL (08:20)
[2024-09-15 10:45] VITALS: BMI 16.7
--- NOTE | 2024-09-15 11:29 | P.DS_ITS ---
DS: Admitting Diagnosis Discharge Date 09/15 Admitting Diagnosis abscess DS: Discharge Diagnosis Discharge Diagnosis (1) Right upper quadrant abdominal abscess: Code(s): K65.1 - Peritoneal abscess Status: Acute (2) Hypertension: Qualifiers: Hypertension type: essential hypertension Qualified Code(s): I10 - Essential (primary) hypertension Code(s): I10 - Essential (primary) hypertension Status: Chronic (3) Dyslipidemia: Code(s): E78.5 - Hyperlipidemia, unspecified Status: Acute (4) Chronic anemia: Code(s): D64.9 - Anemia, unspecified Status: Acute DS: Summary Hospital Course Hospital Course: 64-year-old female with history of cerebrovascular accident and intracranial hemorrhage with resultant right hemiparesis, dysphagia, and expressive aphasia, hypertension, and dyslipidemia who presented to the emergency department via EMS from her nursing facility for evaluation of discharge coming from an abdominal wound. She is unable to provide history given the aphasia and all of the following history is obtained via a review of her electronic medical records. She had acute cholecystitis in December 2020 treated with antibiotics and a cholecystostomy tube was placed to decompress the gallbladder. Did tube was removed eventually at some point and she was readmitted to the hospital in December 2022 with a right-sided abdominal wall abscess near the same site though no obvious connection to the gallbladder was seen. The area was incised and drained and improved with antibiotics. Today she was noted to have drainage coming from a small open area around the same site and she was sent in for evaluation. She is able to shake her head no when asked if she is having any pain. She also denies feeling feverish and sickness to her stomach. Hx of acute cholecystitis in December 2020 treated with antibiotics and a cholecystostomy tube was placed to decompress the gallbladder. Tube was removed at some point and she was readmitted to the hospital in December 2022 with a right- sided abdominal wall abscess near the same site though no obvious connection to the gallbladder was seen. The area was I&D and improved with antibiotics. She was noted to have drainage coming from a small open area around the same site on 09/11. - Does not meet SIRS criteria. Vitals stable, WBC WNL. - Wound culture obtained on 09/11: negative - CT abdomen/pelvis: 1. Decrease in size of a now 4.0 x 2.8 x 0.8 cm right upper quadrant anterior abdominal wall abscess versus biloma located along a prior cholecystostomy drainage catheter tract. 2. No acute intra-abdominal/pelvic process. 3. Cholelithiasis with small amount of gas within the gallbladder lumen which could be due to either prior sphincterotomy or passage of gas along the prior drainage catheter tract. 4. Percutaneous gastrostomy tube extends to the gastric antrum with distal bulb at the pylorus. No bowel obstruction. 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 HEENT: Normocephalic. Atraumatic. No facial asymmetry. Chest: Lungs are clear to auscultation bilaterally. No wheezes or crackles. CV: Heart was regular rate and rhythm. S1-S2. No murmurs, gallops, or rubs. Abd: Abdomen was soft. Nontender. Nondistended. Small open wound to the RUQ that appears chronic with small amount of purulent drainage. Ext: No clubbing, cyanosis, or edema. Neuro: Patient is alert. Speech is clear. RUQ wound - no drainage, PEG - C/D/I Const: General: comfortable DS: Data Data Completed and Pending Completed studies during hospitalization: multiple xrays, abd pelvis ct Labs on day of discharge: Labs from last 24 hours 09/15/24 09/15/24 07:01 04:58 WBC 6.7 RBC 4.01 L Hgb 10.4 L Hct 34.0 L MCV 84.8 MCH 25.9 L MCHC 30.6 L RDW 14.0 Plt Count 299 MPV 10.5 H POC Capillary Glucose 124 H Preliminary micro results at discharge 09/11/24 17:20 Anaerobic Culture - Preliminary Abscess Discharge Plan Discharge Attending physician on discharge: Yakov Melvin Consulting providers: Jumana Tse Discharging Clinician: Nedra Mcgrath Patient Disposition: [facility] Activity: may shower Diet: tube feeding Patient Instructions: Antibiotic Form Patient Language: Rw[place]an Stand Alone Forms: General Discharge Information Follow-up/Referrals: Sherrie,Monalisa Snowden MD [Primary Care Provider] - 2 Weeks Discharge Medications: New amoxicillin-pot clavulanate 875-125 mg tablet 1 tablet PO Q12H Qty: 6 0RF Continued loratadine 10 mg capsule 10 mg feeding tube DAILY aspirin 81 mg tablet,chewable 81 mg feeding tube DAILY atorvastatin 80 mg tablet 80 mg feeding tube HS cholecalciferol (vitamin D3) 25 mcg (1,000 unit) capsule 25 mcg feeding tube DAILY famotidine 20 mg tablet 20 mg feeding tube BID carvedilol 6.25 mg tablet 6.25 mg feeding tube BID magnesium citrate Solution 300 ml feeding tube DAILY PRN (Reason: Constipation) Rx Instructions: give per peg in am as needed for constipation if no results after enema sertraline 20 mg/mL concentrate 75 mg feeding tube DAILY ferrous sulfate 220 mg (44 mg iron)/5 mL Elixir 330 mg feeding tube BID lisinopril 1 mg/mL Solution 5 mg feeding tube DAILY Ventolin HFA 2 puff inhalation PRN PRN (Reason: Wheezing) Voltaren Arthritis Pain 1 appful topical DAILY Rx Instructions: apply to hips topically daily acetaminophen 650 mg feeding tube Q4H PRN (Reason: Pain (Scale Score 1-3)/fever) ascorbic acid (vitamin C) [Vitamin C] 500 mg tablet 500 mg feeding tube DAILY ondansetron HCl [Zofran] 4 mg Tablet 4 mg feeding tube Q6H PRN (Reason: Nausea And Vomiting) ezetimibe 10 mg tablet 10 mg feeding tube .every bedtime Rx Instructions: 10mg every bedtime fluoxetine 20 mg/5 mL (4 mg/mL) solution 20 mg feeding tube DAILY lisinopril 5 mg tablet 5 mg feeding tube DAILY gentamicin 0.1 % cream 1 applic topical DAILY Rx Instructions: APPLY TO ABDOMEN, FLANK TOPICALLY EVERY DAY FOR WOUND CARE UNTIL 10/02/2024 silver sulfadiazine 1 % cream 1 applic TOPICAL DAILY Rx Instructions: APPLY TO LOWER ABDOMEN TOPICALLY EVERY DAY FOR WOUND CARE. CLEANSE WITH WC/NS. APPLY SSD COLLAGEN POWDER CALCIUM ALGINATE AND COVER WITH [place] [employer]. imipenem-cilastatin 500 mg recon soln See Rx Instructions .ROUTE .COMPLEX Rx Instructions: 500MG IM BID X 10 DAYS; START DATE 09/06/2024 bisacodyl 10 mg suppository 10 mg RECTAL DAILY PRN (Reason: constipation) Rx Instructions: INSERT 1 SUPPOSITORY RECTALLY NEEDED FOR CONSTIPATION DAILY IF NO RESULTS FOR MOM. Fleet Enema 19-7 gram/118 mL enema 118 ml RECTAL DAILY PRN (Reason: constipation) Rx Instructions: INSERT 1 APPLICATION RECTALLY NEEDED FOR CONSTIPATION IF NO RESULTS 1 DAY AFTER SUPPOSITORY. Date of admission: 09/12/24 10:43 Primary Care Provider: Sherrie,Monalisa Snowden Admitting Provider: Chris Sabillon Attending physician on admission: Chris Sabillon Condition: Stable Quality VTE Prophylaxis VTE prophylaxis: mechanical ordered Hospitalist MIPS Heart Failure (Exclusion) Patient has history of Heart Transplant or Left Ventricular Assistive Device?: No IF YES, STOP HERE Heart Failure (Qualifier) Patient has current or prior documentation of LVEF less than or equal to 40%, or mod/servere depressed LVSF?: No IF NO, STOP HERE
[2024-09-15 11:36] LABS: Glucose Point of Care 139 mg/dl (65-105)
[2024-09-15 14:00] VITALS: BP 122/59; PULSE 64; RESP 18; TEMP 36; O2SAT 98
== END 2024-09-15 16:46 | DRG 603 ==
LOC: ANHED 16:58 → ANH3MEDSUR 18:11
PROVIDERS: Physician Assistant; Student in an Organized Health Care Education/Training Program; Admitting Provider Internal Medicine; Emergency Provider Emergency Medicine; PCP Internal Medicine; Visit Provider Nurse Practitioner
DX: L02.211 Cutaneous abscess of abdominal wall (principal); I69.251 Hemiplegia and hemiparesis following other nontraumatic intracranial hemorrhage affecting right dominant side; K82.3 Fistula of gallbladder; K80.10 Calculus of gallbladder with chronic cholecystitis without obstruction; I10 Essential (primary) hypertension; J44.9 Chronic obstructive pulmonary disease, unspecified; K21.9 Gastro-esophageal reflux disease without esophagitis; K44.9 Diaphragmatic hernia without obstruction or gangrene; R13.10 Dysphagia, unspecified; D64.9 Anemia, unspecified; E78.5 Hyperlipidemia, unspecified; E78.00 Pure hypercholesterolemia, unspecified; F32.A Depression, unspecified; I69.220 Aphasia following other nontraumatic intracranial hemorrhage; I69.291 Dysphagia following other nontraumatic intracranial hemorrhage; Z93.1 Gastrostomy status; Z79.82 Long term (current) use of aspirin; Z72.0 Tobacco use
CPT/HCPCS: 36415; 74177; 80048; 80053; 82948; 83735; 85025; 85027; 85055; 86140; 87070; 87075; 87205; 96365; 99285; A9270; G0378; J1885; J2543; Q9967

== ENCOUNTER 2024-10-18 19:13 | Emergency (ER) | payer MEDICARE, MEDICAID, SELFPAY ==
--- NOTE | ~2024-10-18 | CT_ITS ---
CLINICAL INDICATION: Wound is leaking . Patient had abscess in the right anterolateral abdominal wa ll, and underwent drainage 05/06/2021. Originally, this was the location of a percutaneous cholecystos timmy catheter which was placed 01/20/2021 via a transhepatic approach. COMPARISON: 09/11/2024. TECHNIQUE: Multiple contiguous axial images of the abdomen and pelvis were performed following the ad ministration of with 100 mL Omnipaque-350 intravenous contrast The dose-length product (DLP) was 274.79 mGy-cm. Automated exposure control and iterative reconstruction technique were employed. FINDINGS/OBSERVATIONS: Visualized lower thorax: Trace right basilar atelectasis. The remainder of the lung bases are clear. The heart is of normal size, without pericardial effusion. Small hiatal hernia is present. Liver: The liver demonstrates homogeneous enhancement and is enlarged measuring 21 cm in longitudinal dimens ion. Gallbladder and biliary system: The gallbladder is only minimally distended, and demonstrates multiple stones with rim calcifications . Pancreas: The pancreas enhances homogeneously without ductal dilatation. Spleen: The spleen enhances homogeneously and is not enlarged measuring 10 cm in longitudinal dimension. Kidneys: The bilateral kidneys enhance symmetrically without hydronephrosis or renal calculi. Adrenal glands: Unremarkable. Gastrointestinal tract: Fecal stasis within the colon. Vasculature: Densely calcified atherosclerotic disease. Lymph nodes: No pathologically enlarged or morphologically suspicious lymph nodes within the retroperitoneum or at the root of the mesentery. Pelvic structures: The bladder is distended, and otherwise unremarkable. The uterus is anteverted and anteflexed and nodular in contour for which fibroid disease is suspected , but not confirmed. Body wall and musculoskeletal: Within the right upper quadrant, the area of clinical concern, is air and fluid attenuation, with thi ckening of the anterolateral musculature, likely representing recurrence of the abscess cavity. This focus measures approximately 5 x 3 cm (anterior to posterior and medial to lateral dimension). Significant degenerative disease with osteophyte formation, disc space narrowing, endplate changes an d vacuum phenomena. Levoscoliotic curvature of the lumbar spine persists. IMPRESSION: Recurrent rim-enhancing fluid collection within the soft tissues and musculature of the anterolateral chest wall, at site of previous catheter placement. Reviewed, dictated and finalized at location A. IMPRESSION: Recurrent rim-enhancing fluid collection within the soft tissues and musculatur e of the anterolateral chest wall, at site of previous catheter placement.
[2024-10-18 19:22] VITALS: BP 114/64; PULSE 86; RESP 20; TEMP 36.9; O2SAT 98
[2024-10-18 20:16] LABS: Basophils Percent Auto 0.4 % (0.2-1.2); Eosinophils Absolute Auto 0.1 K/mm3 (0-0.3); Eosinophils Percent Auto 1.6 % (0-4.4); Hematocrit 31.7 % (37.0-47.0); Hemoglobin 10.2 g/dL (12.0-15.0); Immature Granulocyte Absolute 0.01 K/mm3 (0.00-0.031); Immature Granulocyte Percent A 0.1 % (0-0.5); Lymphocytes Percent Auto 23.5 % (18.3-44.2); Mean Corpuscular HGB Conc 32.2 g/dl (32-36); Mean Corpuscular Volume 80.7 fl (80-100); Mean Platelet Volume 10.2 fl (7.4-10.4); Monocytes Percent Auto 13.4 % (2.6-8.5); Neutrophils Absolute Auto 4.7 K/mm3 (1.3-6.7); Platelet Count Result 336 k/mm3 (150-375); Red Blood Count 3.93 M/mm3 (4.2-5.4); White Blood Count 7.7 K/mm3 (4.5-10.0)
--- OUTSIDE RECORDS SUMMARY | 2024-10-18 20:21 | XMS_ITS | CONTINUITY OF CARE DOCUMENT ---
Author Name daniel leighevelyne Address Unknown Organization [facility] Address [address] [address] [facility] [address] [place] [address] Phone [phone] Care Team Providers Care Buckle Stapler Name Role Phone Alfredo Soto MD Unavailable [phone] BRANDI BANKS Unavailable BRANDI BANKS Unavailable PROBLEMS Condition Status Date Provider Notes LEG PAIN active Eladio Aviles MD Shortness of breath active Alfredo Soto MD SAIMA active Alfredo Soto MD ENCOUNTERS Date Type Provider Location Encounter Diagnosis - In-person encounter Office Visit Alfredo Soto MD [place] [facility] Shortness of breathOSA - In-person encounter Office Visit Alfredo Soto MD [place] [facility] - In-person encounter Office Visit Eladio Aviles MD [place] [facility] LEG PAIN VITAL SIGNS Date Observation Value Provider blood pressure, diastolic, left arm 88 mm [Hg] Areli Trae blood pressure, systolic, left arm 129 mm [Hg] Areli Trae blood pressure, diastolic, right arm 86 m m[Hg] Areli Trae blood pressure, systolic, right arm 137 m m[Hg] Areli Trae blood pressure, diastolic 86 mm[Hg] Ga jayashree Larkin blood pressure, systolic 137 mm[Hg] Mariah Larkin respiratory rate E&M 16 /min Areli Larkin pulse rate 104 /min Areli Larkin oxygen saturation, oximetry 97 % Areli Larkin Body Mass Index (Ratio) 29.83 kg/m2 Christelle [...] mg/dL [facility] LDL cholesterol, serum 224 mg/dL [facility] cholesterol, serum 301 mg/dL globulins, serum, total 3.3 g/dL [facility] Estimated Glomerular Filtration Rate (calc) 85 mL/min/{1 .73_m2} [facility] albumin/globulin ratio, serum 1.4 [facility] protein, total, serum 7.9 g/dL albumin, serum 4.6 g/dL [facility] bilirubin, serum, total 0.3 mg/dL [facility] alkaline phosphatase, serum 92 1/L alanine aminotransferase (SGPT), serum 18 1/L aspartate aminotransferase (SGOT), serum 22 1/L [facility] calcium, serum 9.7 mg/dL [facility] blood glucose, fasting 112 mg/dL [facility] creatinine, serum 0.81 mg/dL [facility] urea nitrogen, blood 18 mg/dL [facility] carbon dioxide, serum, total 23 mmol/L chloride, serum 96 mmol/L potassium, serum 3.6 mmol/L [facility] sodium, serum 137 mmol/L [facility] platelet count 314 10*3/uL [facility] red blood cell distribution width 13.6 % [facility] mean corpuscular hemoglobin concentration, RBC 33.2 g/dL [facility] mean corpuscular hemoglobin, RBC 27.8 pg mean corpuscular volume, RBC 84 fL [facility] hematocrit, blood 45.5 % [facility] hemoglobin, blood 15.1 g/dL [facility] erythrocyte (RBC) count 5.44 10*6/mm3 Crystal Reyes [...] alcohol use, average drinks per day none [facility] smoking/tobacco cess ation, patient education and counseling yes Areli Trae caffeine use, averag e drinks per day yes Areli Larkin number of years as a smoker 35 a Areli Trae smoking history, tot al pack/day 0.5 [facility] cigarette use yes [facility] smoking status Current every day [...] RN social history reviewed E&M reviewed Saqib Hammond RN physical exercise, frequency, days per week yes [employer] caffeine use, averag e drinks per day yes [employer] alcohol use, average drinks per day none [employer] number of years as a smoker less than 10 years [employer] smoking status [facility] MENTAL STATUS Date Observation Value Provider assessment of judgme nt and insight E&M Alert and oriented to time, place and person. Mood and affect are normal. Saqib Hammond RN FAMILY HISTORY Family Member Condition Father Family History of Co ronary Artery Disease: Father Family History of Di abetes: Mother Family History of Hy pertension: INSURANCE PROVIDERS Payer name Policy type / Coverage type [employer] ID [facility] [id number] 4 TREATMENT PLAN Date Name Performer Cardiology:Myoview s can and echo are normal. Will obtain PFT's. If PFT's are non-revealing will consider cardiac cath. Alfredo Soto MD Cardiology:She's scheduled for C PAP titration study. Alfredo Soto MD Cardiology:Myoview s can and echo are normal. Will obtain PFT's. If PFT's are non-revealing will consider cardiac cath. Alfredo Soto MD Cardiology:Orders: S NOMED-CT: [id number] Smoking Cessation Counseling ([facility]-[phone]) Ananth Aixa Cardiology:CHOL: 301 (07/29/2011) LDL: 224 [...] Eladio Aviles MD Date Name DLCO - 96460 FRC - 34907 FVC - 56444 STR - Nuclear Sleep Study Home Complete Echo Arterial Duplex Bi-L ower EX LIPID PANEL COMPREHENSIVE METABO LIC PANEL W/EGFR THYROID PANEL WITH T SH, 3RD GENERATION Stress Test - Nuclea r Complete Echo HISTORY OF PROCEDURES Procedure Date Procedure Name Provider Procedure Notes S tatus SNOMED-CT: 385573887 Smoking Cessation Counseling Alfredo Soto MD completed SNOMED-CT: 606905639 [id number] Current Medications Documented Alfredo Soto MD completed Stress EKG Eladio Aviles MD completed Regadenoson, 4 units Alfredo Soto MD completed Cardiolite, 2 units Alfredo Soto MD c ompleted SPECT Images Chadwick Baker MD completed Schedule Followup Alfredo Soto MD after testing completed SNOMED-CT: [id number] Smoking Cessation Counseling Alfredo Soto MD completed EKG Alfredo Soto MD completed SNOMED-CT: [id number] Current Medications Documented Alfredo Soto MD completed
--- OUTSIDE RECORDS SUMMARY | 2024-10-18 20:21 | XMS_ITS | Referral Summary ---
Author Organization [facility] Address [address] [place] [id number] Care Team Providers Care Country Singer Name Role Phone Unknown, Notinfile Primary Care [...] bloody output from drain and transferred to [facility] for further management. -Initial OSH CT uploaded [...] bloody output from drain and transferred to [facility] for further management. -Initial OSH CT uploaded [...] bloody output from drain and transferred to [facility] for further management. -Initial OSH CT uploaded [...] bloody output from drain and transferred to [facility] for further management. -Initial OSH CT uploaded [...] bloody output from drain and transferred to [facility] for further management. -Initial OSH CT uploaded [...] ASA 81, atorvastatin 80 G tube feedings 01/24/2021 Assessment & Plan (01/28/2021 5:08 PM CDT): -Initially kept NPO for possible procedure. 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 OP regimen is Glucerna 360mL QID with 180mL FWF with each feed. Resumed TF and tolerated. Assessment & Plan (01/27/2021 3:35 PM CDT): -Initially Keep NPO for possible procedure, TF orders placed on hold. 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 OP regimen is Glucerna 360mL QID with 180mL FWF with each feed. Resumed and tolerated. Assessment & Plan (01/26/2021 12:51 PM CDT): -Initially Keep NPO for possible procedure, TF orders placed on hold. 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 -OP regimen is Glucerna 360mL QID with 180mL FWF with each feed. -Resume as tolerated. Assessment & Plan (01/25/2021 11:37 AM CDT): -Keep NPO for possible procedure, TF orders placed on hold. 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 -OP regimen is Glucerna 360mL QID with [...] Advance Directives For more information, please contact: [phone] * Full Code (Latest Code Status on File) Date Activated Date Inactivated Comments 01/24/2021 9:08 PM 01/29/2021 5:17 PM Care Teams Country Singer Relationship Specialty Start Date End Date Unknown, Notinfile PCP - General 01/24/21
--- OUTSIDE RECORDS SUMMARY | 2024-10-18 20:21 | XMS_ITS | Clinical Summary ---
Author Organization [facility] Address [address] [place] [address] Care Team Providers Care Bid Writer Name Role Phone None, Provider MD Primary Care Provider Unavaila ble Allergies No known active allergies Medications budesonide-form oterol 80-4.5 MCG/ACT inhaler Inhale 2 puffs into the lungs 2 (two) times daily. Active albuterol sulfate HFA 108 (90 Base) MCG/ACT inhaler Inhale 2 puffs into the lungs every 6 (six) hours as needed for Wheezing. Active clonazePAM 0.5 MG tabletIndicatio ns:G tube feedings ([facility]) 1 tablet (0.5 mg total) by Per [...] and discharge planning General No Connie Williamson, CLIENT PROGRAM MANAGER Medical Devices Implanted Type Area Bank Manager Device Identifier Shelf Expiration Date Model / Serial / Lot Peg Kit 24fr Push- Non-Safety - [id number] Implanted:Qt y: 1 on 11/20/2020 by Dank Damian MD at [facility] Tube Implant N/A: Abdomen [employer] [id number] 07/11/2021 [id number] / / [id number] [place] [address] [place] [address] MEDICAID Advance Directives Documents on File Type Date Recorded Patient [employer] Advance Directives and Living Will [...] 5:23 PM 11/09/2020 4:47 AM Care Teams Bid Writer Relationship Specialty Start Date End Date None, Provider, PCP - General 11/07/20
--- OUTSIDE RECORDS SUMMARY | 2024-10-18 20:21 | XMS_ITS | Clinical Summary ---
Author Organization [facility] Address [address] [place] [phone] Care Team Providers Care Air Press Operator Name Role Phone Unknown, Notinfile Primary [...] bloody output from drain and transferred to [facility] for further management. -Initial OSH CT [...] bloody output from drain and transferred to [facility] for further management. -Initial OSH CT [...] bloody output from drain and transferred to [facility] for further management. -Initial OSH CT [...] bloody output from drain and transferred to [facility] for further management. -Initial OSH CT [...] bloody output from drain and transferred to [facility] for further management. -Initial OSH CT [...] -Initially kept NPO for possible procedure. 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 OP regimen is Glucerna 360mL QID with 180mL FWF with each feed. Resumed TF and tolerated. Assessment & Plan (01/27/2021 3:35 PM CDT): -Initially Keep NPO for possible procedure, TF orders placed on hold. 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 OP regimen is Glucerna 360mL QID with 180mL FWF with each feed. Resumed and tolerated. Assessment & Plan (01/26/2021 12:51 PM CDT): -Initially Keep NPO for possible procedure, TF orders placed on hold. 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 -OP regimen is Glucerna 360mL QID with 180mL FWF with each feed. -Resume as tolerated. Assessment & Plan (01/25/2021 11:37 AM CDT): -Keep NPO for possible procedure, TF orders placed on hold. 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 -OP regimen is Glucerna 360mL QID with [...] Advance Directives For more information, please contact: [phone] * Full Code (Latest Code Status on File) Date Activated Date Inactivated Comments 01/24/2021 9:08 PM 01/29/2021 5:17 PM Care Teams Air Press Operator Relationship Specialty Start Date End Date Unknown, Notinfile PCP - General 01/24/21
--- OUTSIDE RECORDS SUMMARY | 2024-10-18 20:21 | XMS_ITS | Data Portability ---
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 Plan of Treatment Reminders Order Date Submit Date Provider Last Modified By Organization Details Last Modified Time Details Appointments None recorded . Lab None recorded . Referral audiolog ist referral - Please eval and treat . Thank you ... 2020 021 ace [facility] Audiology, [address] [facility], [facility] [address], [address], 08:38:55 Procedures None recorded . Surgeries None recorded . Imaging None recorded . Medication Orders clonazep am 0.5 mg tablet 2020 [address] [place] [address] [facility] #98506, [address], [place], [id number], 14:01:56 hydrocod one 7.5 mg-aceta minophen 325 mg tablet 2020 021 [place] [address] [facility] #66795, [address] [place], [place], [id number], 16:01:06 clonazep am 0.5 mg tablet 2020 021 [address] [facility], [address] [place], [place], [id number], 02/04/202 1 16:01:06 predniso ne 20 mg tablet 2020 [facility] #37957, [address] [place], [place], [id number], 1 15:58:03 prometha zine-DM 6.25 mg-15 mg/5 mL oral syrup 2020 [facility], [address] [place] [address], [id number], 1 15:57:01 hydrocod one 7.5 mg-aceta minophen 325 mg tablet [address] [facility]62709, [address] [place], [place], [id number], 0 13:31:03 Pennsaid 20 mg/gram/ actuatio n (2 %) topical soln in metered- dose pump 2019 [facility], [address] [place] [address], [id number], 0 13:32:59 amoxicil matt 875 mg-potas sium clavulan ate 125 mg tablet 2019 020 [facility] #44605, [address] [place], [place], [id number], 1 12:35:13 clonazep am 0.5 mg tablet [address] [facility] #55088, [address] [place], [place], [id number], 0 13:31:03 hydrocod one 7.5 mg-aceta minophen 325 mg tablet [address] [facility] #07629, [address] [place], [place], [id number], 0 10:50:13 hydrocod one 7.5 mg-aceta minophen 325 mg tablet [address] [facility]40, [address] [place], [place], [id number], 0 16:03:43 clonazep am 1 mg tablet [id number] [facility] #51106, [address] [place], [place], [id number], 1 16:02:39 Patient TargetsNo targets recorded. Patient Instructions Encounter Date Encounter Id Patient Instructions Last Modified By Organization Details Last Modified Time 09/05/2020 [id number] she has antibiotics ...already [email or web address] Not available 09/05/2020 16:08:54 10/08/2020 [id number] counseled ; no si/hi ... coping [email or web address] Not available 10/09/2020 17:50:53 Reason for Referral [place] Administrator Referral for Hea ring loss Please eval and treat . Thank you ... Referring Physician: Brandi Montejo, Family Medicine, Encounter Date: 09/05/2020 Problems Name Problem SNOMED Code Status Onset Date Resolution Date Notes Provider Name and Address Organization Details Recorded Time Acute bronchitis 96928403 Active 2017 Brandi Montejo PA-C Attn: Nanette davis,[address] [place], [address], [facility] 8 16:13:33 Hearing loss 20174987 Active 2017 Brandi Montejo PA-C Attn: Nanette davis,[address] [place], [address], [facility] 8 16:16:40 Family history of diabetes mellitus with complicati on 392656855 Active 2017 Brandi Montejo PA-C Attn: Nanette davis,[address] [place], [address], [place] [facility] 8 12:08:31 Screening for disorder Active 2017 Brandi Montejo PA-C Attn: Nanette g,[address] [facility], [place], [address], [place] [facility] 8 12:09:27 Screening for malignant neoplasm of colon Active 2017 Brandi Montejo PA-C Attn: Accountsheeba g,[address] [facility], [place], [address], [place] [facility] 8 12:13:29 Tendinitis of left wrist region 2793735463353 9100 Active 2018 Brandi Montejo PA-C Attn: Accountsheeba g,[address] [facility], [place], [address], [place] [facility] 9 14:32:55 Pain of left ankle joint 4012909558248 9103 Active 2018 she has 2 screws in there Brandi Montejo PA-C Attn: Accountsheeba g,[address] [facility], [place], [address], [place] [facility] 9 14:36:08 Administra tion of influenza vaccine Active 2018 Brandi Montejo PA-C Attn: Accountsheeba g,[address] [facility], [place], [address], [place] [facility] 9 13:25:32 Cramp in lower limb 749178234 Active 2018 Brandi Montejo PA-C Attn: Accountin g,[address] [facility], [place], [address], [place] [facility] 9 13:29:06 Acute sinusitis 75581292 Active Brandi Montejo PA-C Attn: Accountin g,[address] [facility], [place], [address], [place] [facility] 6 16:59:06 Hypertensi ve disorder 01467080 Active Brandi Montejo PA-C Attn: Accountin g,[address] [facility], [place], [address], [place] [facility] 6 11:55:07 Gastroesop hageal reflux disease 550250045 Active Brandi Montejo PA-C Attn: Accountin g,[address] [facility], [place], [address], [place] [facility] 6 11:55:07 Ankle pain 563415275 Active Brandi Montejo PA-C Attn: Accountin g,[address] [facility], [place], [address], [place] [facility] 4 14:48:04 Chronic obstructiv e pulmonary disease 80992637 Active Brandi Montejo PA-C Attn: Accountin g,[address] [facility], [place], [address], [place] [facility] 6 11:55:07 Chest pain 52075549 Active 2018 Brandi Montejo PA-C Attn: Accountin g,[address] [facility], [place], [address], [place] [facility] 9 16:10:54 Acute pharyngiti s 706500002 Active 2019 Brandi Montejo PA-C Attn: Accountin g,[address] [facility], [place], [address], [place] [facility] 0 18:05:34 Tobacco dependence syndrome 16180387 Active 2019 Brandi Montejo PA-C Attn: Accountin g,[address] [facility], [place], [address], [place] [facility] 0 14:29:56 Overweight 026600813 Active 2019 Brandi Montejo PA-C Attn: Accountin g,[address] [facility], [place], [address], [place] [facility] 0 15:54:58 Insect bite, nonvenomou s, of neck 529909768 Active 2019 Brandi Montejo PA-C Attn: Accountin g,[address] [facility], [place], [address], [place] [facility] 0 11:30:27 Dental abscess 669355002 Active 2019 Brandi Montejo PA-C Attn: Accountin g,[address] [facility], [place], [address], [place] [facility] 0 13:28:33 Hearing loss 87263180 Active 2020 Brandi Montejo PA-C Attn: Accountin g,[address] [facility], [place], [address], [place] [facility] 1 16:03:31 Insomnia 331305394 Active Brandi Montejo PA-C Attn: Accountin g,[address] [facility], [place], [address], [place] [facility] 6 11:55:07 Angina pectoris 084788165 Active Brandi Montejo PA-C Attn: Accountin g,[address] [facility], [place], [address], [place] [facility] 6 11:55:07 Allergic rhinitis 16375347 Active Brandi Montejo PA-C Attn: Accountin g,[address] [facility], [place], [address], [place] [facility] 6 11:55:07 Folliculit is 97382681 Active Brandi Montejo PA-C Attn: Accountin g,[address] [facility], [place], [address], [place] [facility] 6 11:55:07 Depressive disorder 01023122 Active 2016 Brandi Montejo PA-C Attn: Accountin g,[address] [facility], [place], [address], [place] [facility] 7 14:57:10 Anxiety 27884882 Active 2016 Brandi Montejo PA-C Attn: Accountin g,[address] [facility], [place], [address], [place] [facility] 7 15:00:25 Hyperlipid emia 77653704 Active 2016 Brandi Montejo PA-C Attn: Nanette davis,[address] [facility], [place], [address], [place] [facility] 7 15:04:40 Low back strain 393372070 Active 2016 Brandi Montejo PA-C Attn: Nanette davis,[address] [facility], [place], [address], [place] [facility] 7 16:00:10 Problem Notes None recorded. Medical Equipment None Reported. Allergies Allergen ID Allergen Name Allergen Category Reaction Reaction Severity Criticality Documentation Date Start Date Code Code System Note Provider Name and Address Organization Details Recorded Time 3060 codeine medicatio n rash Not available Not available 06/26/2014 2670 RxNorm Not Available Not Available Not Available Medications Name Sig Start Date Stop Date Status Note LastModified by Organization Details LastModified Time losartan 50 mg tablet 11/02 completed Not Available Not Available Not Available amoxicillin 500 mg capsule 11/02 completed Not Available Not Available Not Available promethazin e-DM 6.25 mg-15 mg/5 mL oral syrup Take 5 mL every 6 hours by oral route as needed for 10 days. 2020 active Not Available Not Available Not Avai lable diclofenac 3 % topical gel APPLY TOPICALLY TO LESION AREA(S) TWICE DAILY 02/22 completed Not Available Not Available Not Available clindamycin HCl 300 mg capsule 11/02 completed Not Available Not Available Not Available citalopram 40 mg tablet TAKE 1 TABLET BY MOUTH EVERY DAY AT BEDTIME 09/18 completed Not Available Not Available Not Available trazodone 50 mg tablet Take 1 tablet every day by oral route at bedtime for 30 days. 11/02 completed Not Available Not Available Not Available azithromyci n 250 mg tablet TAKE 2 TABLETS (500 MG) BY ORAL ROUTE ONCE DAILY FOR 1 DAY THEN 1 TABLET (250 MG) BY ORAL ROUTE ONCE DAILY FOR 4 DAYS 09/08 completed Not Available Not Available Not Available ibuprofen 800 mg tablet TAKE 1 TABLET BY MOUTH THREE TIMES DAILY WITH FOOD 12/12 completed Not Available Not Available Not Available fluconazole 150 mg tablet Take 1 tablet every 72 hours by oral route for 9 days. active Not Available Not Available No t Available hydrocodone 5 mg-acetamin ophen 325 mg tablet Take 1 tablet as needed by oral route for 30 days. 07/11 completed Not Available Not Available Not Available prednisone 20 mg tablet Take 2 tablets twice a day by oral route for 2 days. active Not Available Not Available No t Available clonazepam 0.5 mg tablet TAKE 1 TABLET BY MOUTH TWICE DAILY NEEDED. MUST LAST 30 DAYS 2020 active Not Available Not Available Not Avai lable clonazepam 1 mg tablet TK 1 T PO BID PRN FOR 30 DAYS 09/05 completed Not Available Not Available Not Available clindamycin HCl 150 mg capsule Take 1 capsule every 6 hours by oral route for 10 days. 11/02 completed Not Available Not Available Not Available metronidazo le 500 mg tablet 12/12 completed Not Available Not Available Not Available acetaminoph en 300 mg-codeine 30 mg tablet 11/02 completed Not Available Not Available Not Available fexofenadin e 180 mg tablet Take 1 tablet every day by oral route in the morning for 30 days. 11/02 completed Not Available Not Available Not Available ciprofloxac in 500 mg tablet Take 1 tablet every 12 hours by oral route for 10 days. 11/02 completed Not Available Not Available Not Available aspirin 81 mg tablet,yogesh yed release Take 1 tablet every day by oral route as needed for 30 days. 2017 active Not Available Not Available Not Avai lable tramadol 50 mg tablet 11/02 completed Not Available Not Available Not Available citalopram 20 mg tablet Take 1 tablet every day by oral route for 30 days. 09/22 completed Not Available Not Available Not Available baclofen 10 mg tablet Take 1 tablet 3 times a day by oral route as needed for 30 days. 02/22 completed Not Available Not Available Not Available hydrocodone 7.5 mg-acetamin ophen 325 mg tablet TAKE 1 TABLET BY MOUTH TWICE DAILY NEEDED. MUST LAST 30 DAYS 2020 active Not Available Not Available Not Avai lable nortriptyli ne 10 mg capsule 11/02 completed Not Available Not Available Not Available lisinopril 10 mg tablet 11/02 completed Not Available Not Available Not Available hydroxyzine HCl 25 mg tablet Take 1 tablet 3 times a day by oral route as needed for 30 days. active Not Available Not Available No t Available mupirocin 2 % topical ointment APPLY A SMALL AMOUNT TO THE AFFECTED AREA BY TOPICAL ROUTE 3 TIMES PER DAY 2019 active Not Available Not Available Not Avai lable mirtazapine 15 mg tablet Take 1 tablet every day by oral route at bedtime for 30 days. 11/02 completed Not Available Not Available Not Available ibuprofen 600 mg tablet 11/02 completed Not Available Not Available Not Available levofloxaci n 500 mg tablet 12/12 completed Not Available Not Available Not Available losartan 100 mg tablet TAKE 1 TABLET BY MOUTH EVERY DAY 2020 active Not Available Not Available Not Avai lable fluoxetine 20 mg capsule TAKE 1 CAPSULE BY MOUTH EVERY DAY active Not Available Not Available No t Available fluticasone propionate 50 mcg/actuati on nasal spray,suspe nsion Inhale 1 spray twice a day by intranasa l route for 30 days. active Not Available Not Available No t Available sertraline 50 mg tablet 09/22 completed Not Available Not Available Not Available loratadine 10 mg tablet Take 1 tablet every day by oral route in the morning for 30 days. 2019 active Not Available Not Available Not Avai lable naproxen 500 mg tablet Take 1 tablet twice a day by oral route with meals for 30 days. 11/02 completed Not Available Not Available Not Available amoxicillin 875 mg-potassiu m clavulanate 125 mg tablet Take 1 tablet every 12 hours by oral route for 10 days. 10/08 completed Not Available Not Available Not Available Ventolin HFA 90 mcg/actuati on aerosol inhaler Inhale 2 puffs 3 times a day by inhalatio n route as needed for 30 days. 2019 active Not Available Not Available Not Avai lable Benadryl Allergy 25 mg tablet Take 1 tablet every day by oral route at bedtime for 30 days. 2019 active Not Available Not Available Not Avai lable Symbicort 160 mcg-4.5 mcg/actuati on HFA aerosol inhaler Inhale 2 puffs twice a day by inhalatio n route as directed for 30 days. 2019 active Not Available Not Available Not Avai lable Chantix Starting Month Box 0.5 mg (11)-1 mg (42) tablets in dose pack Take 1 startr pk by oral route. active Not Available Not Available No t Available Pennsaid 20 mg/gram/act uation (2 %) topical soln in metered-dos e pump APPLY 2 PUMPS (40 MG) TO THE AFFECTED KNEE(S) BY TOPICAL ROUTE 2 TIMES PER DAY 2019 active Not Available Not Available Not Avai lable Vitals Date Recorded Body height Provider Name an d Address Organization Details Last Updated DateTime 04/19/2020 160.02 cm Starla Worrell MA [facility] 04/19/2020 15:37:41 Date Recorded Body height Provider Name an d Address Organization Details Last Updated DateTime 07/05/2020 160.02 cm Starla Worrell MA [facility] 07/05/2020 12:15:28 Date Recorded Body height Body mass index (BMI) Body weight Provider Name and Address Organization Details Last Updated DateTime 09/05/2020 160.02 cm 24.4 kg/m2 99246.75 g Areli Young MA [facility] 09/05/2020 12:51:07 Date Recorded Body height Provider Name an d Address Organization Details Last Updated DateTime 10/08/2020 160.02 cm Starla Worrell MA [facility] 10/08/2020 12:35:04 Social History Question Answer Notes LastModified by Organizat ion Details LastModified Time Tobacco Smoking Status Current Every Day Smoker Starla José MA null, [facility] 12/15/2019 10:59:40 What Is Your Level Of Alcohol Consumption? None Information not available 06/26/2014 What Is Your Level Of Caffeine Consumption? Moderate Information not available 06/26/2014 How Much Tobacco Do You Chew? None Information not available 06/26/2014 What Type Of Diet Are You Following? REGULAR Information not available 06/26/2014 Do You Or Have You Ever Used E-cigarettes Or Vape? Never Used Electronic Cigarettes Information not available 09/05/2020 Marital Status Informatio n not available 06/26/2014 What Was The Date Of Your Most Recent Tobacco Screening? 05/23/2020 [email or web address] Information not available 05/23/2020 At What Age Did You Start Smoking Tobacco? 15 Information not available 06/26/2014 Do You Or Have You Ever Used Smokeless Tobacco? Never Used Smokeless Tobacco Information not available 09/05/2020 How Much Tobacco Do You Smoke? 1 PPW Pt Is Smoking About 1 /2 Ppw Information not available 03/21/2020 On What Date Was Tobacco Cessation Counseling Provided? 01/23/2020 Information not available 01/23/2020 How Many Years Have You Smoked Tobacco? 35 Information not available 06/26/2014 Sex: Female Functional Status Question Answer Note LastModified by Organization D etails LastModified Time What is your exercise level? None Information not available 06/26/2014 Mental Status None recorded. Family History Relationship Description Onset Age of this Age Resolved Age Notes LastModified by Organization Details LastModified Time Mother Hypertensive disorder Not available 2013 14:27:45 Father Hypertensive disorder Not available 2013 14:27:45 Maternal Uncle Hypertensive disorder Not available 2013 14:27:45 Maternal Grandmother Hypertensive disorder Not available 2013 14:27:45 Medical History Condition Response Coronary Artery Disease N Other N Atrial Fibrillation N High Blood Pressure Y Kidney or Bladder Problems N Thyroid Problems N GI Problems N Depression N COPD N Blood Clots N Skin Problems N Anemia N Heart Attack (NH) N Anxiety Disorder N Diabetes N Muscle, Joint, or Bone Problems N Seizures/Epilepsy N Acid Reflux (GERD) N Cancer N Stroke N Asthma N Allergies N High Cholesterol Y Hepatitis N Liver Disease N Headaches Y Heart Failure N Osteoporosis N Gynecological History Statement/Question Response Current Control Method Menopause Age at First Child Obstetrics History GPAL:G 0 P 0 0 0 0 Immunizations Vaccine Type Date Status Note Provider Nam e and Address Organization Details Recorded Time Influenza, split virus, quadrivalent, preservative 9 completed Not Available [facility] 08/19/2019 02:40:53 Influenza, split virus, quadrivalent, preservative 5 completed Not Available [facility] 08/19/2019 02:32:08 Past Encounters Encounter ID Performer Location Encounter Start Date Encounter Closed Date Diagnosis/Indication Diagnosis SNOMED-CT Code Diagnosis ICD10 Code Diagnosis Note [id number] TYLER Chase (Adult Med) [address] [place] [address] 06/26/2014 13:34:16 06/27/2014 11:14:11 Acute sinusitis 60604821 Hypertensive disorder 20328817 Gastroesop hageal reflux disease 520206059 Ankle pain 069049589 Chronic ob structive pulmonary disease 44972105 [id number] LITO Pedraza (Adult Med) [address] [place] [id number] 04/16/2015 13:24:28 04/16/2015 14:55:14 Hypertensive disorder 25691875 Gastroesop hageal reflux disease 174335117 Chronic ob structive pulmonary disease 26447618 Active or passive immunization 214700734 Insomnia 508576176 [id number] MD Brooke Ortiz (Adult Med) [address] [place] [id number] 09/05/2015 15:16:57 09/05/2015 17:19:11 Acute sinusitis 27970349 J01.90 Chronic ob structive pulmonary disease 41165289 J44.9 Gastroesop hageal reflux disease 366900526 K21.9 Hypertensive disorder 38 044646 I10 Insomnia 268292930 G47.0 0 Angina pectoris 85165890 0 I20.9 [id number] TYLER Chase (Adult Med) [address] [place] [id number] 12/06/2015 15:23:06 12/06/2015 16:28:34 Hypertensive disorder 40330971 I10 Allergic rhinitis 846692 04 J30.9 Chronic ob structive pulmonary disease 55024412 J44.9 Gastroesop hageal reflux disease 971284234 K21.9 Insomnia 759672010 G47.0 0 [id number] TYLER Chase (Adult Med) [address] [place] [id number] 03/25/2016 11:30:29 03/25/2016 11:59:50 Folliculitis 06774211 L73.9 Allergic rhinitis 717364 04 J30.9 Chronic ob structive pulmonary disease 66374750 J44.9 Gastroesop hageal reflux disease 949239544 K21.9 Hypertensive disorder 38 308021 I10 Insomnia 264951319 G47.0 0 Angina pectoris 56937588 0 I20.9 [id number] TYLER Chase (Adult Med) [address] [place] [id number] 09/28/2016 13:24:07 09/28/2016 15:08:30 Insomnia 594874644 G47.00 Depressive disorder 3548 9007 F32.89 Hypertensive disorder 38 971039 I10 Anxiety 33275858 F41.9 Hyperlipidemia 51713539 E78.5 [id number] TYLER Chase (Adult Med) [address] [place] [id number] 01/21/2017 15:27:44 01/21/2017 16:29:13 Anxiety 01177629 F41.9 Depressive disorder 3548 9007 F32.89 [id number] TYLER Chase (Adult Med) [address] [place] [id number] 04/06/2017 15:51:13 04/06/2017 16:14:58 Acute sinusitis 33601576 J01.90 Chronic ob structive pulmonary disease 38561670 J44.9 Anxiety 35922886 F41.9 [id number] TYLER Chase (Adult Med) [address] [place] [id number] 06/07/2017 15:25:56 06/07/2017 16:08:23 Acute sinusitis 51694509 J01.90 Insomnia 271719498 G47.0 0 Hypertensive disorder 38 901027 I10 Gastroesop hageal reflux disease 638436975 K21.9 Depressive disorder 3548 9007 F32.89 Hyperlipidemia 95152998 E78.5 Anxiety 17111983 F41.9 Chronic ob structive pulmonary disease 83774899 J44.9 Low back strain 25800487 1 S39.012D [id number] TYLER Chase (Adult Med) [address] [place] [id number] 11/02/2017 15:26:13 11/02/2017 16:22:00 Anxiety 66259879 F41.9 Acute bronchitis 4575333 2 J20.9 Hearing loss 31101734 H9 1.93 Chronic ob structive pulmonary disease 21555315 J44.9 [id number] TYLER Chase (Adult Med) [address] [place] [id number] 02/03/2018 10:30:36 02/07/2018 09:47:17 Anxiety 11541014 F41.9 Hypertensive disorder 38 308089 I10 Chronic ob structive pulmonary disease 63914953 J44.9 Gastroesop hageal reflux disease 951565621 K21.9 Angina pectoris 64400893 0 I20.9 Hyperlipidemia 01013206 E78.5 Family his tory of diabetes mellitus with complication 051676569 Z83.3 Screening for disorder 420104172 Z13.9 Screening for malignant neoplasm of colon 678961779 Z12.11 Depressive disorder 3548 9007 F32.89 Insomnia 276709121 G47.0 0 Low back strain 85073051 1 S39.012D [id number] TYLER Chase (Adult Med) [address] [place] [id number] 05/17/2018 17:25:20 05/18/2018 09:54:52 Acute bronchitis 40465136 J20.9 Anxiety 23229928 F41.9 Gastroesop hageal reflux disease 608020052 K21.9 Chronic ob structive pulmonary disease 94115109 J44.9 [id number] TYLER Chase (Adult Med) [address] [place] [id number] 0 09/22/2018 13:26:08 09/23/2018 09:03:01 Anxiety 19557023 F41.9 Hypertensive disorder 38 109917 I10 Depressive disorder 3548 9007 F32.89 Tendinitis of left wrist region 6775510672 7380209 M77.8 Pain of le ft ankle joint 4152573102 5669135 M25.572 Acute bronchitis 2291646 2 J20.9 Low back strain 46196517 1 S39.012D Hyperlipidemia 94878154 E78.5 Chronic ob structive pulmonary disease 49244062 J44.9 Insomnia 593987712 G47.0 0 Gastroesop hageal reflux disease 716069295 K21.9 Allergic rhinitis 235178 04 J30.9 [id number] TYLER Chase (Adult Med) [address] [place] [id number] 0 12/12/2018 15:25:44 12/13/2018 10:56:11 Pain of left ankle joint 7760146109 4542140 M25.572 Anxiety 73506611 F41.9 Acute bronchitis 3220300 2 J20.9 Hyperlipidemia 29023216 E78.5 Depressive disorder 3548 9007 F32.89 Gastroesop hageal reflux disease 171615360 K21.9 Hypertensive disorder 38 865251 I10 Allergic rhinitis 053129 04 J30.9 [id number] TYLER Chase (Adult Med) [address] [place] [id number] 0 02/22/2019 10:25:58 02/23/2019 08:59:31 Acute bronchitis 54010775 J20.9 Pain of le ft ankle joint 8315675149 9770771 M25.572 Hyperlipidemia 85140929 E78.5 Anxiety 06692614 F41.9 Depressive disorder 3548 9007 F32.89 Chronic ob structive pulmonary disease 96164640 J44.9 Insomnia 132088995 G47.0 0 Gastroesop hageal reflux disease 501378951 K21.9 Hypertensive disorder 38 116075 I10 Allergic rhinitis 309453 04 J30.9 [id number] Brooke (Adult Med) [address] [place] [id number] 0 03/27/2019 14:25:55 03/28/2019 08:19:16 Hypertensive disorder 85220148 I10 Pain of le ft ankle joint 3824111077 1196875 M25.572 Anxiety 26115658 F41.9 Low back strain [id number] 1 S39.012D Hyperlipidemia 28097783 E78.5 Depressive disorder 3548 9007 F32.89 Chronic ob structive pulmonary disease 70305228 J44.9 Insomnia 298753332 G47.0 0 Angina pectoris 65467800 0 I20.9 Gastroesop hageal reflux disease 350715690 K21.9 Allergic rhinitis 841972 04 J30.9 [id number] TYLER Chase (Adult Med) [address] [place] [address] [phone] 0 05/05/2019 11:28:33 05/05/2019 13:34:28 Pain of left ankle joint 2891276367 1723268 M25.572 Anxiety 13503724 F41.9 Administra tion of influenza vaccine 98551323 Z23 Cramp in lower limb 4499 91063 R25.2 bilateral Allergic rhinitis 251793 04 J30.9 Hypertensive disorder 38 924207 I10 Gastroesop hageal reflux disease 408038160 K21.9 Insomnia 804620732 G47.0 0 Chronic ob structive pulmonary disease 33979687 J44.9 Depressive disorder 3548 9007 F32.89 Hyperlipidemia 49337368 E78.5 [id number] TYLER Chase (Adult Med) [address] [place] [address] [phone] 0 06/08/2019 14:24:29 06/08/2019 15:32:31 Acute bronchitis 39530931 J20.9 Pain of le ft ankle joint 5942255279 0779363 M25.572 Anxiety 11566686 F41.9 Chronic ob structive pulmonary disease 19580280 J44.9 Hyperlipidemia 88895895 E78.5 Depressive disorder 3548 9007 F32.89 Insomnia 360853688 G47.0 0 Gastroesop hageal reflux disease 420628314 K21.9 Hypertensive disorder 38 920893 I10 Allergic rhinitis 337583 04 J30.9 [id number] TYLER Chase (Adult Med) [address] [place] [address] [phone] 0 07/11/2019 15:28:24 07/11/2019 16:26:24 Administration of influenza vaccine 32141266 Z23 Hyperlipidemia 42196414 E78.5 Hypertensive disorder 38 788207 I10 Gastroesop hageal reflux disease 761419184 K21.9 Insomnia 852461296 G47.0 0 Anxiety 03272996 F41.9 Pain of le ft ankle joint 8645940637 2188258 M25.572 Chest pain 16057184 R07. 9 Allergic rhinitis 909624 04 J30.9 Chronic ob structive pulmonary disease 74424538 J44.9 Depressive disorder 3548 9007 F32.89 [id number] TYLER Chase (Adult Med) [address] [place] [address] [id number] 0 08/11/2019 17:22:26 08/11/2019 18:12:48 Hyperlipidemia 83119428 E78.5 Allergic rhinitis 820295 04 J30.9 Acute bronchitis 6997560 2 J20.9 Chronic ob structive pulmonary disease 44320540 J44.9 Acute pharyngitis 284174 003 J02.9 Pain of le ft ankle joint 5078534299 2478233 M25.572 Insomnia 123362863 G47.0 0 Gastroesop hageal reflux disease 622463109 K21.9 Depressive disorder 3548 9007 F32.89 [id number] TYLER Chase (Adult Med) [address] [place] [address] [phone] 0 09/08/2019 15:23:24 09/11/2019 09:11:40 Chronic obstructive pulmonary disease 88948511 J44.9 Depressive disorder 3548 9007 F32.89 Gastroesop hageal reflux disease 041782314 K21.9 Hyperlipidemia 59172320 E78.5 Insomnia 870439728 G47.0 0 Pain of le ft ankle joint 3726309329 1985779 M25.572 Hypertensive disorder 38 072859 I10 Anxiety 19820672 F41.9 Allergic rhinitis 043627 04 J30.9 [id number] TYLER Chase (Adult Med) [address] [place] [address] [phone] 0 10/06/2019 15:21:10 10/09/2019 13:43:07 Anxiety 81042484 F41.9 Pain of le ft ankle joint 6700306052 6549995 M25.572 Overweight 499744250 E66 .3 Allergic rhinitis 166412 04 J30.9 [id number] TYLER Chase (Adult Med) [address] [place] [address] 74828-631 0 11/07/2019 14:19:03 11/07/2019 16:25:18 Allergic rhinitis 98362574 J30.9 Ankle pain 098215389 M25 .579 Chronic ob structive pulmonary disease 80155582 J44.9 Gastroesop hageal reflux disease 708461745 K21.9 Hyperlipidemia 95323345 E78.5 Hypertensive disorder 38 741142 I10 Insomnia 166813213 G47.0 0 Low back strain 47789967 1 S39.012D Pain of le ft ankle joint 7853007833 4791351 M25.572 Acute bronchitis 0276852 2 J20.9 [id number] TYLER Chase (Adult Med) [address] [place] [address] 03233-004 0 12/07/2019 12:41:47 12/08/2019 11:46:51 Pain of left ankle joint 3282688006 9095694 M25.572 Hypertensive disorder 38 721843 I10 Anxiety 05391667 F41.9 Allergic rhinitis 155426 04 J30.9 Chronic ob structive pulmonary disease 49716180 J44.9 Depressive disorder 3548 9007 F32.89 Gastroesop hageal reflux disease 813831673 K21.9 Hyperlipidemia 88587171 E78.5 Insomnia 813052805 G47.0 0 Angina pectoris 10207897 0 I20.9 [id number] TYLER Chase (Adult Med) [address] [place] [address] 87748-100 0 12/15/2019 08:01:46 12/15/2019 11:31:49 Insect bite, nonvenomous, of neck 042526591 S10.96XA Allergic rhinitis 909758 04 J30.9 Chronic ob structive pulmonary disease 16801114 J44.9 Depressive disorder 3548 9007 F32.89 Gastroesop hageal reflux disease 977585446 K21.9 Hyperlipidemia 55791456 E78.5 Hypertensive disorder 38 862457 I10 Insomnia 600578971 G47.0 0 [id number] TYLER Chase (Adult Med) [address] [place] [address] [phone] 0 01/23/2020 13:38:37 01/23/2020 14:41:57 Chronic obstructive pulmonary disease 26628652 J44.9 Gastroesop hageal reflux disease 306445994 K21.9 Hyperlipidemia 93203076 E78.5 Hypertensive disorder 38 105198 I10 Insomnia 023813732 G47.0 0 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 Allergic rhinitis 700154 04 J30.9 Depressive disorder 3548 9007 F32.89 Pain of le ft ankle joint 6694658721 3879921 M25.572 Ankle pain 761002180 M25 .945 [id number] TYLER Chase (Adult Med) [address] [place] [address] 99080-691 0 03/21/2020 08:02:24 03/21/2020 16:54:06 Pain of left ankle joint 7870232937 0720565 M25.572 Allergic rhinitis 789426 04 J30.9 Ankle pain 414109170 M25 .579 Chronic ob structive pulmonary disease 39835506 J44.9 Depressive disorder 3548 7 F32.89 Gastroesop hageal reflux disease 266955279 K21.9 Hyperlipidemia 56245077 E78.5 Hypertensive disorder 38 416500 I10 Insomnia 598919868 G47.0 0 Tobacco de pendence syndrome 08825793 F17.917 [id number] TYLER Chase (Adult Med) [address] [place] [address] 53948-490 0 04/19/2020 08:14:13 04/19/2020 16:25:30 Pain of left ankle joint 3952694742 7311349 M25.572 Anxiety 08737380 F41.9 Allergic rhinitis 793537 04 J30.9 Chronic ob structive pulmonary disease 07488637 J44.9 Depressive disorder 3548 7 F32.89 Gastroesop hageal reflux disease 761201634 K21.9 Hyperlipidemia 09194151 E78.5 Hypertensive disorder 38 974663 I10 Insomnia 777593035 G47.0 0 Tobacco de pendence syndrome 83270488 F17.671 [id number] TYLER Chase (Adult Med) [address] [place] [address] 22807-135 0 05/23/2020 07:48:29 05/23/2020 15:57:19 Chronic obstructive pulmonary disease 39107843 J44.9 Depressive disorder 3548 9007 F32.89 Pain of le ft ankle joint 5343945284 3787572 M25.572 Allergic rhinitis 154835 04 J30.9 Tobacco de pendence syndrome 64708254 F17.200 Insomnia 804674420 G47.0 0 Hypertensive disorder 38 294551 I10 Hyperlipidemia 42054830 E78.5 Gastroesop hageal reflux disease 292310046 K21.9 Anxiety 01316473 F41.9 Ankle pain 170077319 M25 .229 [id number] TYLER Chase (Adult Med) [address] [place] [address] 59942-218 0 07/05/2020 10:22:47 07/05/2020 15:19:41 Anxiety 50634581 F41.9 Pain of le ft ankle joint 4466161196 0436134 M25.572 Dental abscess 474338667 K04.7 Gastroesop hageal reflux disease 894421683 K21.9 Hyperlipidemia 28975609 E78.5 Hypertensive disorder 38 035803 I10 Insomnia 502866109 G47.0 0 Low back strain 55642593 1 S39.012D Tobacco de pendence syndrome 95263601 F17.200 Allergic rhinitis 757002 04 J30.9 [id number] TYLER Chase (Adult Med) [address] [place] [address] 26326-763 0 09/05/2020 09:00:17 09/06/2020 09:14:18 Acute bronchitis 93473394 J20.9 Anxiety 18100080 F41.9 Pain of le ft ankle joint 9899063997 5325003 M25.572 Hearing loss 16468695 H9 1.93 [id number] TYLER Chase (Adult Med) [address] [place] [address] 17526-586 0 10/08/2020 08:50:50 10/08/2020 13:02:41 Allergic rhinitis 36534358 J30.9 Anxiety 00602752 F41.9 Chronic ob structive pulmonary disease 91536206 J44.9 Depressive disorder 3548 9007 F32.89 Gastroesop hageal reflux disease 338272143 K21.9 Hyperlipidemia 28192243 E78.5 Hypertensive disorder 38 749174 I10 Insomnia 194380861 G47.0 0 Tobacco de pendence syndrome 68032021 F17.200 Health Concerns Section Related Observation LastModified by Organization Detai ls LastModified Time None Recorded Concern Status LastModified by Organization Details LastModified Time None Recorded Advance Directives Directive None Recorded Payers Encounter Date Sequence Insurance Name Policy Number Policy Camilo Covered Member ID Camilo Member ID Guarantor Name 04/19/2020 1 [employer] [place] (MEDICARE REPLACEMENT HMO) [place] Cubilla [id number] [place] Cubilla 05/23/2020 1 [employer] [place]MEDICARE [place]PLACEMENT H[place] Cub[place] [id number] Marilyn Cubilla 07/05/2020 1 [employer] [place] (MEDICARE [place]PLACEMENT HMO) Marilyn Cubilla [id number] [place] Cubilla 09/05/2020 1 [employer] [place] (MEDICARE REPLACEMENT HMO) Marilyn Cubilla [id number] [place] Cubilla 10/08/2020 1 [employer] [place] (MEDICARE REPLACEMENT HMO) [place] Cub[place] [id number] [place] Cubilla Notes Date Note Type Note Provider Name and Address Organization Details Recorded Time 04/19/2020 text/html [employer]...... Brandi Montejo PA-C Attn: Accounting,[address] [place], [address], [facility] [place] [place] 04/22/2020 21:59:12 05/23/2020 text/html they have a dumpster , her back is so tight ...ankle with screws gave out ... Brandi Montejo PA-C Attn: Accounting,[address] [place], [address], [facility] 05/27/2020 10:51:34 07/05/2020 text/html left 3rd molar lower ... infected .. for 3 weeks ... saw Dentist Brandi Montejo PA-C Attn: Accounting,[address] [place], [address], [facility] 07/09/2020 13:02:02 10/08/2020 text/html in [place] , sons took her to get away , , she was there with him , he apologized , she forgave him ... Brandi Montejo PA-C Attn: Accounting,[address] [facility], [place], [address], [facility] 10/09/2020 17:51:05 OBGyn Episode No OBEpisode recorded.
--- OUTSIDE RECORDS SUMMARY | 2024-10-18 20:21 | XMS_ITS | Clinical Summary ---
Author Organization [facility] Address [address] [facility] [place] [address] Care Team Providers Care [email or web address] Android Developer Name Role Phone Monalisa Balderas MD Primary Care Provider [phone] Source Comments [facility],non-owned Affiliates and Associated Physician Practices is amultiple site organization consisting of ambulatory clinics and hospital sitesin [place], [place], [place] and [place]. This disclosure is being madepursuant to the Care Everywhere program and may not contain all information available regarding this patient. Last updated 18.[facility] Allergies No known active allergies Medications * [...] 05/15/2021 Immunizations Name Administration Dates Next Due AppHero primary monoval ent 12+ yr 0.3mL Purple [...] Oxygen Concentration 21% 06/28/2021 1 :13 AM INDEX EDITOR Weight 47.1 kg (103 lb 12.8 oz) [...] complete this topic MENINGOCOCCAL (Group B) VACCINE SHARED DECISION-MAKING Aged Out No longer eligible based on patient's age to complete this topic MENINGOCOCCAL GROUPS A/C/Y/W VACCINE Aged Out No longer eligible b [...] 5:48 PM 05/22/2021 7:52 PM Care Teams [email or web address] Android Developer Relationship Specialty Start Date End Date Monalisa Balderas MD [address] [place] [address] [place] [address] PCP - General Internal Medicine 05/15/21
[2024-10-18 20:29] LABS: Alanine Aminotransferase 14 U/L (6-35); Albumin Level 3.7 g/dL (3.5-5.1); Alkaline Phosphatase 121 U/L (38-126); Anion Gap 9 mmol/L (4-12); Aspartate Amino Transferase 23 U/L (14-36); Bilirubin,Total 0.4 mg/dL (0.2-1.3); Blood Urea Nitrogen 20 mg/dL (7-17); Calcium 8.8 mg/dL (8.4-10.2); Carbon Dioxide 26 mmol/L (22-30); Chloride 95 mmol/L (98-107); Estimated Glomerular Filt Rate > 60; Glucose 121 mg/dL (65-110); Potassium 4.3 mmol/L (3.4-5.0); Sodium 130 mmol/L (137-145)
--- NOTE | 2024-10-18 20:51 | ED_ITS ---
HPI - General Adult General Chief complaint: Wound/Laceration Stated complaint: WOUND Time Seen by Provider: 10/18/24 19:37 History of Present Illness HPI narrative: 64-year-old female presents to emergency department for evaluation for drainage from abdominal fistula. Patient does have a known abdominal wall abscess that is chronic. alf noted that patient had increased drainage today. Patient is nonverbal at baseline but is able to respond to questions. Denies any associated abdominal pain. Related Data Home Medications ?Medication ?Instructions ?Recorded ?Confirmed ?Last Taken ?Type aspirin 81 mg chewable tablet 81 mg feeding tube DAILY 01/16/21 09/11/24 Unknown History atorvastatin 80 mg tablet 80 mg feeding tube HS 01/16/21 09/11/24 Unknown History cholecalciferol (vitamin D3) 25 25 mcg feeding tube DAILY 01/16/21 09/11/24 Unknown History mcg (1,000 unit) capsule famotidine 20 mg tablet 20 mg feeding tube BID 01/16/21 09/11/24 Unknown History loratadine 10 mg capsule 10 mg feeding tube DAILY 01/16/21 09/11/24 Unknown History ondansetron HCl 4 mg tablet 4 mg feeding tube Q6H PRN Nausea 05/06/21 09/11/24 Unknown History (Zofran) And Vomiting Ventolin HFA 2 puff inhalation PRN PRN Wheezing 01/23/23 09/11/24 Unknown History Voltaren Arthritis Pain 1 appful topical DAILY 01/23/23 09/11/24 Unknown History acetaminophen 650 mg feeding tube Q4H PRN Pain 01/23/23 09/11/24 Unknown History (Scale Score 1-3)/fever ascorbic acid (vitamin C) 500 mg 500 mg feeding tube DAILY 01/23/23 09/11/24 Unknown History tablet (Vitamin C) carvedilol 6.25 mg tablet 6.25 mg feeding tube BID 01/23/23 09/11/24 Unknown History ferrous sulfate 220 mg (44 mg 330 mg feeding tube BID 01/23/23 09/11/24 Unknown History iron)/5 mL oral elixir lisinopril 1 mg/mL oral solution 5 mg feeding tube DAILY 01/23/23 09/11/24 Unknown History magnesium citrate 300 ml feeding tube DAILY PRN 01/23/23 09/11/24 Unknown History Constipation sertraline 20 mg/mL oral 75 mg feeding tube DAILY 01/23/23 09/11/24 Unknown History concentrate bisacodyl 10 mg rectal suppository 10 mg RECTAL DAILY PRN constipation 09/11/24 09/11/24 Unknown History ezetimibe 10 mg tablet 10 mg feeding tube .every bedtime 09/11/24 09/11/24 Unknown History fluoxetine 20 mg/5 mL (4 mg/mL) 20 mg feeding tube DAILY 09/11/24 09/11/24 Unknown History oral solution gentamicin 0.1 % topical cream 1 applic topical DAILY 09/11/24 09/11/24 Unknown History imipenem-cilastatin 500 mg See Rx Instructions .Route .COMPLEX 09/11/24 09/11/24 Unknown History intravenous solution lisinopril 5 mg tablet 5 mg feeding tube DAILY 09/11/24 09/11/24 Unknown History silver sulfadiazine 1 % topical 1 applic topical DAILY 09/11/24 09/11/24 Unknown History cream sodium phosphates 19 gram-7 118 ml RECTAL DAILY PRN 09/11/24 09/11/24 Unknown History gram/118 mL enema (Fleet Enema) constipation Allergies Allergy/AdvReac Type Severity Reaction Status Date / Time No Known Allergies Allergy Verified 09/11/24 15:34 Review of Systems 2 Review of Systems: ROS unobtainable: Yes unobtainable due to medical condition PMFSH Past Medical History Medical History History of acute cholecystitis Chronic anemia Dyslipidemia Chronic obstructive pulmonary disease Cerebrovascular accident complicated by intracranial hemorrhage with resultant right-sided weakness, dysphagia, and expressive aphasia Reflux esophagitis High cholesterol Hypertension Depression Surgical History Surgical History History of incision and drainage History of insertion of cholecystostomy tube History of gastrostomy tube placement History of esophagogastroduodenoscopy (EGD) (05/2021) Hiatal hernia and reflux esophagitis History of ankle surgery Family History Family History Other Cancer Cerebrovascular accident Diabetes mellitus Heart disease Hypertension Social History Social History Social History: Surrogate medical decision maker: Rudy Cubilla, son. Code status: FULL CODE. Smoking packs per day: 0.5 Smoking cigarettes per day: 10.0 Smoking status: Unknown if ever smoked Tobacco type: cigarettes Alcohol intake: unknown Substance use: unknown Substance use type: does not use Living arrangements: long term Additional living arrangements comments: . She has 2 sons. Additional occupation/education comments: Disabled. Spiritual care concerns: No Exam 2 Narrative: APPEARANCE: Well-appearing HEAD: normocephalic, atraumatic. EYES: PERRLA/EOMI, conjunctivae clear. NOSE: Normal no drainage EARS:TMS clear with good light reflex. THROAT: Pharynx clear, no exudate. NECK: Supple. No adenopathy, no masses. RESPIRATORY: Airway patent, respirations nonlabored. Clear to auscultation bilaterally, no rales, rhonchi, wheezing. CARDIOVASCULAR: Regular rate and rhythm without murmurs rubs or gallops. ABDOMINAL: Draining from the right upper quadrant fistula, no tenderness to palpation, no overlying cellulitis MUSCULOSKELETAL: Moves all extremities. Strength/ROM intact, No edema, No calf tenderness. NEURO: Alert. Cranial nerves II through XII intact. SKIN: Warm, dry. Normal Color Course Vital Signs Vital signs: Vital Signs Temperature 98.4 F 10/18/24 19:22 Pulse Rate 86 10/18/24 19:22 Respiratory Rate 20 10/18/24 19:22 Blood Pressure 114/64 10/18/24 19:22 Pulse Oximetry 98 10/18/24 19:22 Oxygen Delivery Room Air 10/18/24 19:22 Temperature 98.4 F 10/18/24 19:22 Pulse Rate 80 10/18/24 21:50 Respiratory Rate 20 10/18/24 21:50 Blood Pressure 100/61 10/18/24 21:50 Pulse Oximetry 99 10/18/24 21:50 Oxygen Delivery Room Air 10/18/24 19:22 Medical Decision Making MDM Narrative Medical decision making narrative: 64-year-old female present to the emergency department for evaluation for a recurrent abscess at a site of a previous biliary drain. Abscess is similar and measurement and description to previous. Patient is currently afebrile with no leukocytosis and a stable hemoglobin of 10.2. No significant acute abnormalities on the patient's CMP. Patient is a poor surgical candidate and during her last hospitalization surgery did operate a abscess. Abscess is draining spontaneously. Patient has no tenderness to palpation. Patient has no active signs infection. Patient will be discharged back to her care facility. Differential Diagnosis Differential Diagnosis: Abdominal abscess, cellulitis, sepsis Vital Signs Vital Signs: Vital Signs Temperature 98.4 F 10/18/24 19:22 Pulse Rate 86 10/18/24 19:22 Respiratory Rate 20 10/18/24 19:22 Blood Pressure 114/64 10/18/24 19:22 Pulse Oximetry 98 10/18/24 19:22 Oxygen Delivery Room Air 10/18/24 19:22 Temperature 98.4 F 10/18/24 19:22 Pulse Rate 80 10/18/24 21:50 Respiratory Rate 20 10/18/24 21:50 Blood Pressure 100/61 10/18/24 21:50 Pulse Oximetry 99 10/18/24 21:50 Oxygen Delivery Room Air 10/18/24 19:22 Lab Data Lab results reviewed: Yes I reviewed the patient's lab results. 10/18/24 20:11 10/18/24 20:11 Labs: Lab Results 10/18/24 Range/Units 20:11 WBC 7.7 (4.5-10.0) K/mm3 RBC 3.93 L (4.2-5.4) M/mm3 Hgb 10.2 L (12.0-15.0) g/dL Hct 31.7 L (37.0-47.0) % MCV 80.7 (80-100) fl MCH 26.0 (26-34) pg MCHC 32.2 (32-36) g/dl RDW 14.0 (11.5-14.5) % Plt Count 336 (150-375) k/mm3 MPV 10.2 (7.4-10.4) fl Immature Gran % (Auto) 0.1 (0-0.5) % Neut % (Auto) 61.0 (45.5-73.1) % Lymph % (Auto) 23.5 (18.3-44.2) % [place] % (Auto) 13.4 H (2.6-8.5) % Eos % (Auto) 1.6 (0-4.4) % Baso % (Auto) 0.4 (0.2-1.2) % Lymph # (Auto) 1.80 (0.9-3.2) K/mm3 [place] # (Auto) 1.0 H (0.1-0.6) K/mm3 Eos # (Auto) 0.1 (0-0.3) K/mm3 Baso # (Auto) 0.0 (0.0-0.1) K/mm3 Abs Immat Gran (auto) 0.01 (0.00-0.031) K/mm3 Absolute Neuts (auto) 4.7 (1.3-6.7) K/mm3 Absolute Nucleated RBC 0.000 (0.0-0.012) K/mm3 Nucleated RBC % 0.0 (0.0-0.2) % Sodium 130 L (137-145) mmol/L Potassium 4.3 (3.4-5.0) mmol/L Chloride 95 L (98-107) mmol/L Carbon Dioxide 26 (22-30) mmol/L Anion Gap 9 (4-12) mmol/L BUN 20 H (7-17) mg/dL Creatinine 0.39 L (0.7-1.0) mg/dL Estim Creat Clear Calc Not Reportable Estimated GFR > 60 (59 - ) Glucose 121 H (65-110) mg/dL Calcium 8.8 (8.4-10.2) mg/dL Total Bilirubin 0.4 (0.2-1.3) mg/dL AST 23 (14-36) U/L ALT 14 (6-35) U/L Alkaline Phosphatase 121 (38-126) U/L Total Protein 7.0 (6.3-8.2) g/dL Albumin 3.7 (3.5-5.1) g/dL Discharge Plan Discharge Clinical Impression: Abdominal wall abscess Patient Disposition: NH Assisted/Asst Living Condition: Stable Instructions: Antibiotic Form Additional Instructions: Patient does have a chronic abscess that will continue to drain. Antibiotic as directed until completed. Close follow-up with her primary care physician. Patient Language: Citizen Of [place] Prescriptions: New amoxicillin-pot clavulanate 875-125 mg tablet 1 tablet feeding tube Q12H 7 Days Qty: 14 0RF No Action loratadine 10 mg capsule 10 mg feeding tube DAILY aspirin 81 mg tablet,chewable 81 mg feeding tube DAILY atorvastatin 80 mg tablet 80 mg feeding tube HS cholecalciferol (vitamin D3) 25 mcg (1,000 unit) capsule 25 mcg feeding tube DAILY famotidine 20 mg tablet 20 mg feeding tube BID carvedilol 6.25 mg tablet 6.25 mg feeding tube BID magnesium citrate Solution 300 ml feeding tube DAILY PRN (Reason: Constipation) Rx Instructions: give per peg in am as needed for constipation if no results after enema sertraline 20 mg/mL concentrate 75 mg feeding tube DAILY ferrous sulfate 220 mg (44 mg iron)/5 mL Elixir 330 mg feeding tube BID lisinopril 1 mg/mL Solution 5 mg feeding tube DAILY Ventolin HFA 2 puff inhalation PRN PRN (Reason: Wheezing) Voltaren Arthritis Pain 1 appful topical DAILY Rx Instructions: apply to hips topically daily acetaminophen 650 mg feeding tube Q4H PRN (Reason: Pain (Scale Score 1-3)/fever) ascorbic acid (vitamin C) [Vitamin C] 500 mg tablet 500 mg feeding tube DAILY ondansetron HCl [Zofran] 4 mg Tablet 4 mg feeding tube Q6H PRN (Reason: Nausea And Vomiting) ezetimibe 10 mg tablet 10 mg feeding tube .every bedtime Rx Instructions: 10mg every bedtime fluoxetine 20 mg/5 mL (4 mg/mL) solution 20 mg feeding tube DAILY lisinopril 5 mg tablet 5 mg feeding tube DAILY gentamicin 0.1 % cream 1 applic topical DAILY Rx Instructions: APPLY TO ABDOMEN, FLANK TOPICALLY EVERY DAY FOR WOUND CARE UNTIL 10/02/2024 silver sulfadiazine 1 % cream 1 applic TOPICAL DAILY Rx Instructions: APPLY TO LOWER ABDOMEN TOPICALLY EVERY DAY FOR WOUND CARE. CLEANSE WITH WC/NS. APPLY SSD COLLAGEN POWDER CALCIUM ALGINATE AND COVER WITH [place] DRESSING. imipenem-cilastatin 500 mg recon soln See Rx Instructions .ROUTE .COMPLEX Rx Instructions: 500MG IM BID X 10 DAYS; START DATE 09/06/2024 bisacodyl 10 mg suppository 10 mg RECTAL DAILY PRN (Reason: constipation) Rx Instructions: INSERT 1 SUPPOSITORY RECTALLY NEEDED FOR CONSTIPATION DAILY IF NO RESULTS FOR MOM. Fleet Enema 19-7 gram/118 mL enema 118 ml RECTAL DAILY PRN (Reason: constipation) Rx Instructions: INSERT 1 APPLICATION RECTALLY NEEDED FOR CONSTIPATION IF NO RESULTS 1 DAY AFTER SUPPOSITORY. amoxicillin-pot clavulanate 875-125 mg tablet 1 tablet PO Q12H Qty: 6 0RF Follow-up/Referrals: Sherrie,Monalisa Snowden MD [Primary Care Provider] -
[2024-10-18 21:50] VITALS: BP 100/61; PULSE 80; RESP 20; O2SAT 99
--- NOTE | 2024-10-18 22:02 | PC.NURSE ---
Attempted to call Mayra Ortega to give report, was left on hold for five minuets.
[2024-10-18] MEDS: AMOXICILLIN/CLAVULANATE K 875-125 MG TAB 1 TABLET FEED TUBE (22:07)
== END 2024-10-18 22:42 ==
PROVIDERS: Emergency Provider Emergency Medicine; PCP Internal Medicine
DX: L02.211 Cutaneous abscess of abdominal wall (principal); I69.951 Hemiplegia and hemiparesis following unspecified cerebrovascular disease affecting right dominant side; I69.991 Dysphagia following unspecified cerebrovascular disease; R13.10 Dysphagia, unspecified; I69.920 Aphasia following unspecified cerebrovascular disease; I10 Essential (primary) hypertension; J44.9 Chronic obstructive pulmonary disease, unspecified; E78.00 Pure hypercholesterolemia, unspecified; D64.9 Anemia, unspecified; K21.00 Gastro-esophageal reflux disease with esophagitis, without bleeding; F32.A Depression, unspecified; Z93.1 Gastrostomy status; Z79.82 Long term (current) use of aspirin; Z79.899 Other long term (current) drug therapy
CPT/HCPCS: 36415; 74177; 80053; 85025; 99284; A9270; Q9967

== ENCOUNTER 2024-12-20 13:32 | Inpatient (IN) | payer MEDICARE, MEDICAID, SELFPAY ==
[2024-12-20] VITALS (34 sets, daily range): BP systolic 50–113; BP diastolic 21–75; PULSE 79–121; RESP 14–54; TEMP 36.1–36.8; O2SAT 97–100; BMI 14.8
--- NOTE | ~2024-12-20 | XR_ITS ---
CHEST RADIOGRAPH CLINICAL HISTORY: increased oxygen requirements . COMPARISON: 12/20/2024 TECHNIQUE: Single portable view of the chest. FINDINGS Right subclavian central venous catheter identified with its tip projecting over the proximal right a trium The remainder of the cardiomediastinal silhouette is otherwise unremarkable. Blunting of the left costophrenic sulcus is present suggesting a small left-sided pleural effusion. Increased interstitial markings are identified bilaterally, findings suggesting mild pulmonary vascul ar congestion. The lungs are otherwise clear. IMPRESSION: Small left-sided pleural effusion with mild pulmonary vascular congestion. No focal infiltrate. Reviewed, dictated and finalized at location A.
--- NOTE | ~2024-12-20 | CT_ITS ---
CT chest abdomen pelvis w con Ordering provider: Thelma Cano MD History: 64 years Female with . SEPSIS . Comparison: None. Technique: CT chest with IV contrast. CT abdomen and pelvis CT abdomen and pelvis with IV and with or al contrast. Radiation reduction technique utilized. The dose-length product was 300.61 mGy-cm. 80 ML Omnipaque 350 was given IV. FINDINGS: CHEST: --VISUALIZED THORACIC INLET: Nodule is seen in the right lobe of the thyroid measuring 2 x 1.4 cm. Ul trasound evaluation advised. --MEDIASTINUM: Aorta/coronary arteries: Mild atheromatous disease. Heart/other: The heart is not enlarged. Lymph nodes: No mediastinal or hilar adenopathy. 1.1 cm lymph node is seen in the paratracheal area. --LUNGS: No pulmonary nodules or masses. No effusions. No pneumothorax. Tree-in-bud appearance is see n in the right lower lobe with minimal groundglass appearance suggestive of pneumonia. Follow-up advi sed. Underlying emphysematous changes. --MUSCULOSKELETAL: Soft tissues: The superficial soft tissues are normal. Bones: Age appropriate degenerative changes of the spine. No suspicious bony lytic or sclerotic lesio ns. ABDOMEN/PELVIS: --MUSCULOSKELETAL: Bones: Loss of height of L4 is seen with compression in the superior endplate which may be acute or c hronic. MRI is advised. Age appropriate degenerative changes of the spine. No suspicious bony lytic o r sclerotic lesions. Superficial soft tissues: The superficial soft tissues are normal. --UPPER ABDOMINAL ORGANS: Liver: Fat infiltration. Gallbladder: Cholelithiasis. Spleen: Normal. Stomach/duodenum: Sliding hiatus hernia. Pancreas: Normal. Slightly prominent pancreatic duct. Adrenals: Normal. Kidneys: Normal. --PELVIC ORGANS: The bladder is underfilled with Marquis's catheter. No bladder stones. Fibroid uterus is seen posteriorly which measures 3.2 x 3.6 cm with calcification. Other fibroids are also seen. --BOWEL AND MESENTERY: Colon: No evidence of diverticulitis. Fluid is seen in the colon which may indicate diarrhea versus e nteritis.. Appendix is not demonstrated. Small Bowel: No obstruction. Peritoneum/mesentery: No free air or free fluid. No mesenteric lymphadenopathy. --RETROPERITONEUM: Mild atheromatous disease of the abdominal aorta. Atherosclerotic changes of the iliac arteries with severe degrees of stenosis. Clinical correlation advised. No retroperitoneal lymp hadenopathy. IMPRESSION: CHEST: 1. Highly suggestive of pneumonia in the right lower lobe. 2. No evidence of pulmonary embolism or dissection. ABDOMEN/PELVIS: 1. No evidence of appendicitis, diverticulitis or intestinal obstruction. 2. Fluid in the large bowel which may indicate diarrhea versus enteritis. Clinical correlation advis ed. 3. Multiple fibroids. 4. Compression fracture of L4 which may be acute or chronic. MRI is advised. 5. Severe atherosclerotic changes of the iliac arteries. Severe stenosis of both iliac arteries. Reviewed, dictated and finalized at location A. IMPRESSION: CHEST: 1. Highly suggestive of pneumonia in the right lower lobe. 2. No evidence of pulmonary embolism or dissection. ABDOMEN/PELVIS: 1. No evidence of appendicitis, diverticulitis or intestinal obstruction. 2. Fluid in the large bowel which may indicate diarrhea versus enteritis. Clin ical correlation advised. 3. Multiple fibroids. 4. Compression fracture of L4 which may be acute or chronic. MRI is advised. 5. Severe atherosclerotic changes of the iliac arteries. Severe stenosis of rich th iliac arteries.
--- NOTE | ~2024-12-20 | CT_ITS ---
CT brain wo con Ordering provider: Thelma Cano MD History: 64 years Female with . AMS . Comparison: May 05, 2021 Technique: CT of the head without contrast. Radiation reduction technique utilized. The dose-length p roduct was 1059.33 mGy-cm. FINDINGS: BRAIN PARENCHYMA AND CSF SPACES: Mild leukoaraiosis and diffuse cortical atrophy. Mild atheromatous d isease. Lacunar infarcts in the right and left basal ganglia. bilateral thalamic lacunar infarcts. Ol d infarct in the right occipital lobe with encephalomalacia. infarcts with encephalomalacia in the left cerebellar hemisphere are noted. Lacunar infarct in the ri ght cerebellar hemisphere. Lacunar infarct seen in the jose maria. No midline shift, mass effect or hemorrh age. The brain parenchyma and CSF spaces are otherwise normal. VISUALIZED PARANASAL SINUSES: Well aerated. MASTOIDS: Well aerated. BONES: The bones appear intact. SOFT TISSUES: Visualized nasopharynx is normal. Superficial soft tissues are normal. IMPRESSION: No acute intracranial findings. Reviewed, dictated and finalized at location A.
--- NOTE | ~2024-12-20 | XR_ITS ---
CHEST RADIOGRAPH CLINICAL HISTORY: POST CENTRAL LINE . COMPARISON: 01/23/2023 TECHNIQUE: Single portable view of the chest. FINDINGS Interval placement of a right subclavian triple-lumen catheter with its tip projecting over the proxi mal right atrium. The right lung is fully inflated. The lungs are clear. IMPRESSION: Right subclavian central venous catheter in good position and ready for immediate use Reviewed, dictated and finalized at location A. IMPRESSION: Right subclavian central venous catheter in good position and ready for immedia te use
--- NOTE | 2024-12-20 13:57 | ECG_ITS ---
Test Date: 2024-12-20 15:43:16 Measurements Intervals Ellery Rate: 91 P: 74 TX: 121 QRS: 73 QRSD: 82 T: 89 QT: 368 QTc: 453 Interpretive Statements SINUS RHYTHM NONSPECIFIC ST & T-WAVE ABNORMALITY ABNORMAL ECG No previous ECG available for comparison Electronically Signed On 12-20-2024 16:24:48 CDT by Houston Escoto M.D.
[2024-12-20] MEDS: SODIUM CHLORIDE 0.9% IV 2,000 ML 999 ML (14:00)
--- NOTE | 2024-12-20 14:11 | ED_ITS ---
HPI - General Adult General Chief complaint: Altered Mental Status Stated complaint: AMS Time Seen by Provider: 12/20/24 14:10 Source: EMS Mode of arrival: EMS History of Present Illness HPI narrative: 64 YEARS OLD WHITE FEMALE CAME FROM [facility] BY AMBULANCE FOR ALTERED MENTAL STATUS, PATIENT ARRIVED TO THE ED SOILED WITH LIQUID DIARRHEA, BLOOD PRESSURE. EMS WAS 108/86 UPON ARRIVAL TO ED 63/45 HISTORY OF HYPERTENSION, HYPERLIPIDEMIA, CVA WITH DYSPHAGIA, PATIENT IS NONVERBAL AT BASELINE, GASTROSTOMY TUBE, ESOPHAGITIS, CHRONIC CHOLECYSTITIS WITH CALCULUS, CHOLECYSTOCUTANEOUS FISTULA, PATIENT IS BED RIDDEN, FULL CODE, HAVE 2 SONS 1 OF THEM THE 2ND 1 IN THE NURSING HOME, NO ACCESS TO THE PATIENT FAMILY. Related Data Home Medications ?Medication ?Instructions ?Recorded ?Confirmed ?Last Taken ?Type aspirin 81 mg chewable tablet 81 mg feeding tube DAILY 01/16/21 09/11/24 Unknown History atorvastatin 80 mg tablet 80 mg feeding tube HS 01/16/21 09/11/24 Unknown History cholecalciferol (vitamin D3) 25 25 mcg feeding tube DAILY 01/16/21 09/11/24 Unknown History mcg (1,000 unit) capsule famotidine 20 mg tablet 20 mg feeding tube BID 01/16/21 09/11/24 Unknown History loratadine 10 mg capsule 10 mg feeding tube DAILY 01/16/21 09/11/24 Unknown History ondansetron HCl 4 mg tablet 4 mg feeding tube Q6H PRN Nausea 05/06/21 09/11/24 Unknown History (Zofran) And Vomiting Ventolin HFA 2 puff inhalation PRN PRN Wheezing 01/23/23 09/11/24 Unknown History Voltaren Arthritis Pain 1 appful topical DAILY 01/23/23 09/11/24 Unknown History acetaminophen 650 mg feeding tube Q4H PRN Pain 01/23/23 09/11/24 Unknown History (Scale Score 1-3)/fever ascorbic acid (vitamin C) 500 mg 500 mg feeding tube DAILY 01/23/23 09/11/24 Unknown History tablet (Vitamin C) carvedilol 6.25 mg tablet 6.25 mg feeding tube BID 01/23/23 09/11/24 Unknown History ferrous sulfate 220 mg (44 mg 330 mg feeding tube BID 01/23/23 09/11/24 Unknown History iron)/5 mL oral elixir lisinopril 1 mg/mL oral solution 5 mg feeding tube DAILY 01/23/23 09/11/24 Unknown History magnesium citrate 300 ml feeding tube DAILY PRN 01/23/23 09/11/24 Unknown History Constipation sertraline 20 mg/mL oral 75 mg feeding tube DAILY 01/23/23 09/11/24 Unknown History concentrate bisacodyl 10 mg rectal suppository 10 mg RECTAL DAILY PRN constipation 09/11/24 09/11/24 Unknown History ezetimibe 10 mg tablet 10 mg feeding tube .every bedtime 09/11/24 09/11/24 Unknown History fluoxetine 20 mg/5 mL (4 mg/mL) 20 mg feeding tube DAILY 09/11/24 09/11/24 Unknown History oral solution gentamicin 0.1 % topical cream 1 applic topical DAILY 09/11/24 09/11/24 Unknown History imipenem-cilastatin 500 mg See Rx Instructions .Route .COMPLEX 09/11/24 09/11/24 Unknown History intravenous solution lisinopril 5 mg tablet 5 mg feeding tube DAILY 09/11/24 09/11/24 Unknown History silver sulfadiazine 1 % topical 1 applic topical DAILY 09/11/24 09/11/24 Unknown History cream sodium phosphates 19 gram-7 118 ml RECTAL DAILY PRN 09/11/24 09/11/24 Unknown History gram/118 mL enema (Fleet Enema) constipation Allergies Allergy/AdvReac Type Severity Reaction Status Date / Time No Known Allergies Allergy Verified 09/11/24 15:34 [facility] Past Medical History Medical History History of acute cholecystitis Chronic anemia Dyslipidemia Chronic obstructive pulmonary disease Cerebrovascular accident complicated by intracranial hemorrhage with resultant right-sided weakness, dysphagia, and expressive aphasia Reflux esophagitis High cholesterol Hypertension Depression Surgical History Surgical History History of incision and drainage History of insertion of cholecystostomy tube History of gastrostomy tube placement History of esophagogastroduodenoscopy (EGD) (05/2021) Hiatal hernia and reflux esophagitis History of ankle surgery Family History Family History Other Cancer Cerebrovascular accident Diabetes mellitus Heart disease Hypertension Social History Social History Social History: Surrogate medical decision maker: Rudy Ram, son. Code status: FULL CODE. Smoking packs per day: 0.5 Smoking cigarettes per day: 10.0 Smoking status: Unknown if ever smoked Tobacco type: cigarettes Alcohol intake: unknown Substance use: unknown Substance use type: does not use Living arrangements: custodial Additional living arrangements comments: . She has 2 sons. Additional occupation/education comments: Disabled. Spiritual care concerns: No Exam 2 Narrative: GENERAL APPEARANCE: MALNOURISHED, CACHECTIC SKIN: PALE, COLD HEAD: NORMOCEPHALIC, NONTRAUMATIC EYES: CLEAR CONJUNCTIVA ENT: DRY ORAL CAVITY NECK: STIFF NECK CHEST AND RESPIRATORY: AIRWAY PATENT, NO RESPIRATORY DISTRESS, NO ACCESSORY MUSCLE USE HEART: REGULAR RATE/RHYTHM ABDOMEN: SOFT, NONTENDER, NO ORGANOMEGALY, QUIET BOWEL SOUNDS, FEEDING TUBE IN PLACE, RECTAL EXAM, DARK BLACK GREENISH STOOL, GUAIAC POSITIVE MUSCULOSKELETAL: CONTRACTED RIGHT LOWER EXTREMITY IN HIP FLEXION POSITION, SCOLIOSIS, KYPHOSIS NEUROLOGIC: ALERT, NONVERBAL Course Consultations Consultation #1: [facility] NURSE PRACTITIONER OF HOSPITALIST Date: 12/20/24 Time: 18:00 Consultation #2: DR ALFONSO ICU Date: 12/20/24 Consultation #3: DR RODRIGUEZ Date: 12/20/24 Vital Signs Vital signs: Vital Signs Pulse Rate 103 H 12/20/24 13:39 Respiratory Rate 17 12/20/24 13:39 Temperature 36.4 C L 12/20/24 19:26 Pulse Rate 121 H 12/20/24 19:26 Respiratory Rate 16 12/20/24 19:26 Blood Pressure 101/65 12/20/24 19:26 Pulse Oximetry 100 12/20/24 19:26 Oxygen Delivery Room Air 12/20/24 14:33 Procedures Central Line Placement Right SC: Central Line Date: 12/20/24 Central Line Time: 17:40 Performed Emergently - Given emergent patient condition, temporal constraints may have precluded informed consent.: Yes (NO FAMILY MEMBER AT THE BEDSIDE, PATIENT IS NONVERBAL) Time Out Performed: Yes (15) Patient Placed on Monitor/Pulse Ox: Yes Max. Sterile Barrier Technique: Caps, large sterile sheet and hand hygiene Central Line Prep: sterile drapes applied Technique: sterile prep/drape Ultrasound Used for Placement: No Central Line Lumen Inserted: triple Post Procedure: sutured in place, good blood return, all ports aspirated, flushed, capped and sterile dressing applied Post Procedure X-Ray: tip of catheter in good position and no pneumothorax seen Patient Tolerated Procedure: well Complications: none Medical Decision Making MDM Narrative Medical decision making narrative: PATIENT CAME WITH THE CHANGE OF MENTAL STATUS VITAL SIGNS SHOWING BLOOD PRESSURE 63/45, HEART RATE 103 PHYSICAL EXAMINATION SHOWING NONVERBAL PATIENT, CONTRACTED MAINLY RIGHT HIP IN A FLEXION POSITION, FEEDING TUBE, CACHECTIC, MALNOURISHED, DARK GREEN WATERY STOOL, GUAIAC POSITIVE DIFFERENTIAL DIAGNOSIS INCLUDE SEPSIS, URINARY TRACT INFECTION, DEHYDRATION, DIARRHEA, ELECTROLYTE IMBALANCE, DEHYDRATION BLOOD WORKUP INCLUDES CBC, CMP, BLOOD CULTURE, LACTIC ACID SHOWED WBC 16.6, HEMOGLOBIN 14.0, SODIUM 168, POTASSIUM 3.1, ANION GAP 12, BUN 82, CREATININE 1.1, GLUCOSE 205, CALCIUM 7.7, URINALYSIS NEGATIVE FOR INFECTION CT SCAN HEAD WITHOUT CONTRAST SHOWED NO ACUTE ABNORMALITY CT CHEST, ABDOMEN AND PELVIS WITH IV CONTRAST SHOWED PNEUMONIA, POSSIBLE ENTERITIS, LARGE AMOUNT OF FLUID IN THE COLON IN THE ED PATIENT RECEIVED 3 L OF NORMAL SALINE, BLOOD PRESSURE 89/50, RIGHT SUBCLAVIAN CENTRAL LINE, PATIENT STARTED ON ZOSYN, VANCOMYCIN, LEVAQUIN DR. ALFONSO REQUESTED TO ADD FLAGYL FOR POSSIBLE C DIFF. PATIENT IS FULL CODE, NO ACCESS TO FAMILY MEMBER AT THIS TIME. ADMIT TO HOSPITALIST, ICU. Vital Signs Vital Signs: Vital Signs Pulse Rate 103 H 12/20/24 13:39 Respiratory Rate 17 12/20/24 13:39 Temperature 36.4 C L 12/20/24 19:26 Pulse Rate 121 H 12/20/24 19:26 Respiratory Rate 16 12/20/24 19:26 Blood Pressure 101/65 12/20/24 19:26 Pulse Oximetry 100 12/20/24 19:26 Oxygen Delivery Room Air 12/20/24 14:33 Lab Data 12/20/24 14:04 12/20/24 16:01 Labs: Lab Results 12/20/24 12/20/24 12/20/24 Range/Units 14:04 14:28 14:42 WBC 16.6 H (4.5-10.0) K/mm3 RBC 5.68 H (4.2-5.4) M/mm3 Hgb 14.0 D (12.0-15.0) g/dL Hct 50.2 H (37.0-47.0) % MCV 88.4 (80-100) fl MCH 24.6 L (26-34) pg MCHC 27.9 L (32-36) g/dl RDW 16.6 H (11.5-14.5) % Plt Count 289 (150-375) k/mm3 MPV 12.9 H (7.4-10.4) fl Immature Gran % (Auto) 0.5 (0-0.5) % Neut % (Auto) 77.5 H (45.5-73.1) % Lymph % (Auto) 16.4 L (18.3-44.2) % Ponce % (Auto) 5.4 (2.6-8.5) % Eos % (Auto) 0.1 (0-4.4) % Baso % (Auto) 0.1 L (0.2-1.2) % Lymph # (Auto) 2.71 (0.9-3.2) K/mm3 Ponce # (Auto) 0.9 H (0.1-0.6) K/mm3 Eos # (Auto) 0.0 (0-0.3) K/mm3 Baso # (Auto) 0.0 (0.0-0.1) K/mm3 Abs Immat Gran (auto) 0.09 H (0.00-0.031) K/mm3 Absolute Neuts (auto) 12.8 H (1.3-6.7) K/mm3 Absolute Nucleated RBC 0.000 (0.0-0.012) K/mm3 Band Neutrophils % Not Reportable Nucleated RBC % 0.0 (0.0-0.2) % Platelet Estimate Adequate (Adequate) Large Platelets Present Anisocytosis 1+ Ovalocytes 1+ Schistocytes None seen PT 14.3 (11.1-14.7) Seconds INR 1.1 APTT 26.4 (22.3-36.8) Seconds Sodium 168 H* (137-145) mmol/L Potassium 3.1 L (3.4-5.0) mmol/L Chloride 127 H (98-107) mmol/L Carbon Dioxide 26 (22-30) mmol/L Anion Gap 15 H (4-12) mmol/L BUN 91 H D (7-17) mg/dL Creatinine 1.46 H (0.7-1.0) mg/dL Estim Creat Clear Calc Not Reportable Estimated GFR 36 L (59 - ) Glucose 233 H (65-110) mg/dL Lactic Acid 2.4 H (0.7-2.0) mmol/L Calcium 9.4 (8.4-10.2) mg/dL Total Bilirubin 0.8 (0.2-1.3) mg/dL AST 50 H (14-36) U/L ALT 79 H (6-35) U/L Alkaline Phosphatase 115 (38-126) U/L Total Protein 8.0 (6.3-8.2) g/dL Albumin 4.2 (3.5-5.1) g/dL Urine Color Dark yellow (Yellow) Urine Appearance Cloudy H (Clear) Urine pH 5.0 (5.0-9.0) Ur Specific [place] 1.028 (1.001-1.035) Urine Protein Trace (Negative) mg/dL Urine Glucose (UA) Negative (Negative) mg/dL Urine Ketones Trace H (Negative) mg/dL Ur Blood (Man) Negative (Negative) Urine Nitrate Negative (Negative) Urine Bilirubin Negative (Negative) Urine Urobilinogen 1.0 (<2.0) mg/dL Leukocyte Esterase Rfl Trace H (Negative) NICOL/UL Urine RBC 3-5 H (0-2) /hpf Urine WBC 0-5 (0-3) /hpf Ur Squamous Epith Cells Moderate (Few) /hpf Urine Bacteria None seen /hpf Urine Casts >20 Hyaline Casts Present (None) /lpf Nasal MRSA (PCR) (NOT DETECTE) Blood Type O Positive Antibody Screen Negative 12/20/24 12/20/24 Range/Units 16:01 16:53 WBC (4.5-10.0) K/mm3 RBC (4.2-5.4) M/mm3 Hgb (12.0-15.0) g/dL Hct (37.0-47.0) % MCV (80-100) fl MCH (26-34) pg MCHC (32-36) g/dl RDW (11.5-14.5) % Plt Count (150-375) k/mm3 MPV (7.4-10.4) fl Immature Gran % (Auto) (0-0.5) % Neut % (Auto) (45.5-73.1) % Lymph % (Auto) (18.3-44.2) % Ponce % (Auto) (2.6-8.5) % Eos % (Auto) (0-4.4) % Baso % (Auto) (0.2-1.2) % Lymph # (Auto) (0.9-3.2) K/mm3 Ponce # (Auto) (0.1-0.6) K/mm3 Eos # (Auto) (0-0.3) K/mm3 Baso # (Auto) (0.0-0.1) K/mm3 Abs Immat Gran (auto) (0.00-0.031) K/mm3 Absolute Neuts (auto) (1.3-6.7) K/mm3 Absolute Nucleated RBC (0.0-0.012) K/mm3 Band Neutrophils % Nucleated RBC % (0.0-0.2) % Platelet Estimate (Adequate) Large Platelets Anisocytosis Ovalocytes Schistocytes PT (11.1-14.7) Seconds INR APTT (22.3-36.8) Seconds Sodium 165 H* (137-145) mmol/L Potassium 2.8 L* (3.4-5.0) mmol/L Chloride 132 H (98-107) mmol/L Carbon Dioxide 21 L (22-30) mmol/L Anion Gap 12 (4-12) mmol/L BUN 82 H (7-17) mg/dL Creatinine 1.10 H (0.7-1.0) mg/dL Estim Creat Clear Calc 28 Estimated GFR 50 L (59 - ) Glucose 205 H (65-110) mg/dL Lactic Acid 1.4 (0.7-2.0) mmol/L Calcium 7.7 L (8.4-10.2) mg/dL Total Bilirubin 0.6 (0.2-1.3) mg/dL AST 41 H (14-36) U/L ALT 57 H (6-35) U/L Alkaline Phosphatase 86 (38-126) U/L Total Protein 6.0 L (6.3-8.2) g/dL Albumin 3.2 L (3.5-5.1) g/dL Urine Color (Yellow) Urine Appearance (Clear) Urine pH (5.0-9.0) Ur Specific [place] (1.001-1.035) Urine Protein (Negative) mg/dL Urine Glucose (UA) (Negative) mg/dL Urine Ketones (Negative) mg/dL Ur Blood (Man) (Negative) Urine Nitrate (Negative) Urine Bilirubin (Negative) Urine Urobilinogen (<2.0) mg/dL Leukocyte Esterase Rfl (Negative) NICOL/UL Urine RBC (0-2) /hpf Urine WBC (0-3) /hpf Ur Squamous Epith Cells (Few) /hpf Urine Bacteria /hpf Urine Casts Hyaline Casts (None) /lpf Nasal MRSA (PCR) Detected A* (NOT DETECTE) Blood Type Antibody Screen Imaging Data Radiologist's impression: Impressions Head CT 12/20/24 16:30 IMPRESSION: No acute intracranial findings. Chest/Abdomen/Pelvis CT 12/20/24 16:42 IMPRESSION: CHEST: 1. Highly suggestive of pneumonia in the right lower lobe. 2. No evidence of pulmonary embolism or dissection. ABDOMEN/PELVIS: 1. No evidence of appendicitis, diverticulitis or intestinal obstruction. 2. Fluid in the large bowel which may indicate diarrhea versus enteritis. Clinical correlation advised. 3. Multiple fibroids. 4. Compression fracture of L4 which may be acute or chronic. MRI is advised. 5. Severe atherosclerotic changes of the iliac arteries. Severe stenosis of both iliac arteries. Chest X-Ray 12/20/24 17:34 IMPRESSION: Right subclavian central venous catheter in good position and ready for immediate use Critical Care Time Critical Care Time Critical Care Time: Yes Total Critical Care Time: 60 Discharge Plan Discharge Clinical Impression: Pneumonia, Diarrhea, Acute hypokalemia, Acute hypernatremia, Sepsis associated hypotension, GI (gastrointestinal bleed) Patient Disposition: Still a Patient Condition: Guarded Prognosis Patient Language: Albanian Prescriptions: No Action loratadine 10 mg capsule 10 mg feeding tube DAILY aspirin 81 mg tablet,chewable 81 mg feeding tube DAILY atorvastatin 80 mg tablet 80 mg feeding tube HS cholecalciferol (vitamin D3) 25 mcg (1,000 unit) capsule 25 mcg feeding tube DAILY famotidine 20 mg tablet 20 mg feeding tube BID carvedilol 6.25 mg tablet 6.25 mg feeding tube BID magnesium citrate Solution 300 ml feeding tube DAILY PRN (Reason: Constipation) Rx Instructions: give per peg in am as needed for constipation if no results after enema sertraline 20 mg/mL concentrate 75 mg feeding tube DAILY ferrous sulfate 220 mg (44 mg iron)/5 mL Elixir 330 mg feeding tube BID lisinopril 1 mg/mL Solution 5 mg feeding tube DAILY Ventolin HFA 2 puff inhalation PRN PRN (Reason: Wheezing) Voltaren Arthritis Pain 1 appful topical DAILY Rx Instructions: apply to hips topically daily acetaminophen 650 mg feeding tube Q4H PRN (Reason: Pain (Scale Score 1-3)/fever) ascorbic acid (vitamin C) [Vitamin C] 500 mg tablet 500 mg feeding tube DAILY ondansetron HCl [Zofran] 4 mg Tablet 4 mg feeding tube Q6H PRN (Reason: Nausea And Vomiting) ezetimibe 10 mg tablet 10 mg feeding tube .every bedtime Rx Instructions: 10mg every bedtime fluoxetine 20 mg/5 mL (4 mg/mL) solution 20 mg feeding tube DAILY lisinopril 5 mg tablet 5 mg feeding tube DAILY gentamicin 0.1 % cream 1 applic topical DAILY Rx Instructions: APPLY TO ABDOMEN, FLANK TOPICALLY EVERY DAY FOR WOUND CARE UNTIL 10/02/2024 silver sulfadiazine 1 % cream 1 applic TOPICAL DAILY Rx Instructions: APPLY TO LOWER ABDOMEN TOPICALLY EVERY DAY FOR WOUND CARE. CLEANSE WITH WC/NS. APPLY SSD COLLAGEN POWDER CALCIUM ALGINATE AND COVER WITH [place] DRESSING. imipenem-cilastatin 500 mg recon soln See Rx Instructions .ROUTE .COMPLEX Rx Instructions: 500MG IM BID X 10 DAYS; START DATE 09/06/2024 bisacodyl 10 mg suppository 10 mg RECTAL DAILY PRN (Reason: constipation) Rx Instructions: INSERT 1 SUPPOSITORY RECTALLY NEEDED FOR CONSTIPATION DAILY IF NO RESULTS FOR MOM. Fleet Enema 19-7 gram/118 mL enema 118 ml RECTAL DAILY PRN (Reason: constipation) Rx Instructions: INSERT 1 APPLICATION RECTALLY NEEDED FOR CONSTIPATION IF NO RESULTS 1 DAY AFTER SUPPOSITORY. amoxicillin-pot clavulanate 875-125 mg tablet 1 tablet PO Q12H Qty: 6 0RF amoxicillin-pot clavulanate 875-125 mg tablet 1 tablet feeding tube Q12H 7 Days Qty: 14 0RF Follow-up/Referrals: Sherrie,Monalisa Snowden MD [Primary Care Provider] -
[2024-12-20 14:12] LABS: Basophils Percent Auto 0.1 % (0.2-1.2); Eosinophils Percent Auto 0.1 % (0-4.4); Hematocrit 50.2 % (37.0-47.0); Immature Granulocyte Absolute 0.09 K/mm3 (0.00-0.031); Immature Granulocyte Percent A 0.5 % (0-0.5); Lymphocytes Absolute Auto 2.71 K/mm3 (0.9-3.2); Lymphocytes Percent Auto 16.4 % (18.3-44.2); Mean Corpuscular HGB Conc 27.9 g/dl (32-36); Mean Corpuscular Hemoglobin 24.6 pg (26-34); Mean Corpuscular Volume 88.4 fl (80-100); Mean Platelet Volume 12.9 fl (7.4-10.4); Monocytes Absolute Auto 0.9 K/mm3 (0.1-0.6); Monocytes Percent Auto 5.4 % (2.6-8.5); Neutrophils Absolute Auto 12.8 K/mm3 (1.3-6.7); Neutrophils Percent Auto 77.5 % (45.5-73.1); Platelet Count Result 289 k/mm3 (150-375); Red Blood Count 5.68 M/mm3 (4.2-5.4); Red Cell Distribution Width 16.6 % (11.5-14.5); White Blood Count 16.6 K/mm3 (4.5-10.0)
[2024-12-20 14:24] LABS: Lactic Acid Reflex 2.4 mmol/L (0.7-2.0)
[2024-12-20 14:26] LABS: Partial Thromboplastin Time 26.4 Seconds (22.3-36.8)
[2024-12-20 14:28] LABS: Alanine Aminotransferase 79 U/L (6-35); Albumin Level 4.2 g/dL (3.5-5.1); Alkaline Phosphatase 115 U/L (38-126); Anion Gap 15 mmol/L (4-12); Aspartate Amino Transferase 50 U/L (14-36); Bilirubin,Total 0.8 mg/dL (0.2-1.3); Blood Urea Nitrogen 91 mg/dL (7-17); Calcium 9.4 mg/dL (8.4-10.2); Carbon Dioxide 26 mmol/L (22-30); Chloride 127 mmol/L (98-107); Estimated Glomerular Filt Rate 36; Glucose 233 mg/dL (65-110); Potassium 3.1 mmol/L (3.4-5.0); Sodium 168 mmol/L (137-145)
--- OUTSIDE RECORDS SUMMARY | 2024-12-20 14:29 | XMS_ITS | CONTINUITY OF CARE DOCUMENT ---
Author Name daniel leighevelyne Address Unknown Organization [facility] Address [address] [place] [address] Phone [phone] Care Team Providers Care Folder Seamer Automatic Name Role Phone Alfredo Soto MD Unavailable [phone] BRANDI BANKS Unavailable [phone] BRANDI BANKS Unavailable PROBLEMS Condition Status Date Provider Notes LEG PAIN active Eladio Aviles MD Shortness of breath active Alfredo Soto MD SAIMA active Alfredo Soto MD ENCOUNTERS Date Type Provider Location Encounter Diagnosis - In-person encounter Office Visit Alfredo Soto MD [place] [facility] Shortness of breathOSA - In-person encounter Office Visit Alfredo Soto MD [place] [facility] - In-person encounter Office Visit Eladio Aviles MD [place] [facility] LEG PAIN VITAL SIGNS Date Observation Value Provider blood pressure, diastolic, left arm 88 mm [Hg] Areli Trae blood pressure, systolic, left arm 129 mm [Hg] Areli Trae blood pressure, diastolic, right arm 86 m m[Hg] Areli Trae blood pressure, systolic, right arm 137 m m[Hg] Areli Trae blood pressure, diastolic 86 mm[Hg] Hi jayashree Larkin blood pressure, systolic 137 mm[Hg] [...] mg/dL [facility] LDL cholesterol, serum 224 mg/dL [facility] cholesterol, serum 301 mg/dL globulins, serum, total 3.3 g/dL [facility] Estimated Glomerular Filtration Rate (calc) 85 mL/min/{1 .73_m2} [facility] albumin/globulin ratio, serum 1.4 [facility] protein, total, serum 7.9 g/dL albumin, serum 4.6 g/dL [facility] bilirubin, serum, total 0.3 mg/dL [facility] alkaline phosphatase, serum 92 1/L alanine aminotransferase (SGPT), serum 18 1/L aspartate aminotransferase (SGOT), serum 22 1/L [facility] calcium, serum 9.7 mg/dL [facility] blood glucose, fasting 112 mg/dL [facility] creatinine, serum 0.81 mg/dL [facility] urea nitrogen, blood 18 mg/dL [facility] carbon dioxide, serum, total 23 mmol/L chloride, serum 96 mmol/L potassium, serum 3.6 mmol/L [facility] sodium, serum 137 mmol/L [facility] platelet count 314 10*3/uL [facility] red blood cell distribution width 13.6 % [facility] mean corpuscular hemoglobin concentration, RBC 33.2 g/dL [facility] mean corpuscular hemoglobin, RBC 27.8 pg mean corpuscular volume, RBC [address] [facility] hematocrit, blood 45.5 % [facility] hemoglobin, blood 15.1 g/dL [facility] erythrocyte (RBC) count 5.44 10*6/mm3 Crystal Reyes [...] alcohol use, average drinks per day none [facility] smoking/tobacco cess ation, patient education and counseling yes Areli Trae caffeine use, averag e drinks per day yes Areli Larkin number of years as a smoker 35 a Areli Trae smoking history, tot al pack/day 0.5 [facility] cigarette use yes [facility] smoking status Current every day [...] than 10 years [facility] MENTAL STATUS Date Observation Value Provider assessment of judgme nt and insight E&M Alert and oriented to time, place and person. Mood and affect are normal. Saqib Hammond RN FAMILY HISTORY Family Member Condition Father Family History of Co ronary Artery Disease: Father Family History of Di abetes: Mother Family History of Hy pertension: INSURANCE PROVIDERS Payer name Policy type / Coverage type [place] [employer] ID [employer] [facility] [id number] TREATMENT PLAN Date Name Performer Cardiology:Myoview s can and echo are normal. Will obtain PFT's. If PFT's are non-revealing will consider cardiac cath. Alfredo Soto MD Cardiology:She's scheduled for C PAP titration study. Alfredo Soto MD Cardiology:Myoview s can and echo are normal. Will obtain PFT's. If PFT's are non-revealing will consider cardiac cath. Alfredo Soto MD Cardiology:Orders: S NOMED-CT: [id number] [id number] Ananth Aixa Cardiology:CHOL: 301 (07/29/2011) LDL: 224 [...] Eladio Aviles MD Date Name DLCO - 76785 FRC - 55697 FVC - 77818 STR - Nuclear Sleep Study Home Complete Echo Arterial Duplex Bi-L ower EX LIPID PANEL COMPREHENSIVE METABO LIC PANEL W/EGFR THYROID PANEL WITH T SH, 3RD GENERATION Stress Test - Nuclea r Complete Echo HISTORY OF PROCEDURES Procedure Date Procedure Name Provider Procedure Notes S tatus SNOMED-CT: 170100437 Smoking Cessation Counseling Alfredo Soto MD completed SNOMED-CT: 020778220 457202 Current Medications Documented Alfredo Soto MD completed Stress EKG Eladio Aviles MD completed Regadenoson, 4 units Alfredo Soto MD completed Cardiolite, 2 units Alfredo Soto MD c ompleted SPECT Images Chadwick Baker MD completed Schedule Followup Alfredo Soto MD after testing completed SNOMED-CT: 247173016 Smoking Cessation Counseling Alfredo Soto MD completed EKG Alfredo Soto MD completed SNOMED-CT: 689144689 142147 Current Medications Documented Alfredo Soto MD completed
--- OUTSIDE RECORDS SUMMARY | 2024-12-20 14:29 | XMS_ITS | Data Portability ---
Author Organization [facility]uan ManuelBrentwood Gabby Address [address] [place] [address] Care Team Providers Care Care Advocate Name Role Phone ZION MONTEJO Primary Care Provider Unavailab le Assessment No assessment recorded. Plan of Treatment Reminders Order Date Submit Date Provider Last Modified By Organization Details Last Modified Time Details Appointments None recorded . Lab None recorded . Referral audiolog ist referral - Please eval and treat . Thank you ... 2020 021 [facility], [address] [facility], [facility] [address], [address], 08:38:55 Procedures None recorded . Surgeries None recorded . Imaging None recorded . Medication Orders clonazep am 0.5 mg tablet 2020 021 [place] [address] [facility] #00349, [address], [place], [id number], 14:01:56 hydrocod one 7.5 mg-aceta minophen 325 mg tablet 2020 021 [place] [address] [facility] #49121, [address], [place], [id number], 16:01:06 clonazep am 0.5 mg tablet 2020 021 [address], [address], [place], [id number], 02/04/202 1 16:01:06 predniso ne 20 mg tablet 2020 [facility] #20112, [address], [place], [id number], 1 15:58:03 prometha zine-DM 6.25 mg-15 mg/5 mL oral syrup 2020 [facility], [address] [place] [address], [id number], 1 15:57:01 hydrocod one 7.5 mg-aceta minophen 325 mg tablet [address] [facility] #44750, [address], [place], [id number], 0 13:31:03 Pennsaid 20 mg/gram/ actuatio n (2 %) topical soln in metered- dose pump 2019 [facility], [address] [place] [address], [id number], 0 13:32:59 amoxicil matt 875 mg-potas sium clavulan ate 125 mg tablet 2019 020 [facility] #23216, [address], [place], [id number], 1 12:35:13 clonazep am 0.5 mg tablet [address] [facility] #83729, [address], [place], [id number], 0 13:31:03 hydrocod one 7.5 mg-aceta minophen 325 mg tablet [address] [facility] #42995, [address], [place], [id number], 0 10:50:13 hydrocod one 7.5 mg-aceta minophen 325 mg tablet [address] [facility] #95225, [address], [place], [id number], 0 16:03:43 clonazep am 1 mg tablet [email or web address] [facility] #50675, [address], [place], [id number], 1 16:02:39 Patient TargetsNo targets recorded. Patient Instructions Encounter Date Encounter Id Patient Instructions Last Modified By Organization Details Last Modified Time 09/05/2020 [id number] she has antibiotics ...already [email or web address] Not available 09/05/2020 16:08:54 10/08/2020 [id number] counseled ; no si/hi ... coping [email or web address] Not available 10/09/2020 17:50:53 Reason for Referral Fish Icer Referral for Hea ring loss Please eval and treat . Thank you ... Referring Physician: Zion Montejo, Family Medicine, Encounter Date: 09/05/2020 Problems Name Problem SNOMED Code Status Onset Date Resolution Date Notes Provider Name and Address Organization Details Recorded Time Acute bronchitis 36334995 Active 2017 Zion Montejo PA-C Attn: Nanette davis,[address] [place], [address], [facility] 8 16:13:33 Hearing loss 24051857 Active 2017 Zion Montejo PA-C Attn: Nanette davis,[address] [place], [address], [facility] 8 16:16:40 Family history of diabetes mellitus with complicati on 473770297 Active 2017 Zino Montejo PA-C Attn: Nanette davis,[address] [place], [address], [place] [facility] 8 12:08:31 Screening for disorder Active 2017 Zion Montejo PA-C Attn: Nanette g,[address] [facility], [place], [address], [place] [facility] 8 12:09:27 Screening for malignant neoplasm of colon Active 2017 Zion Montejo PA-C Attn: Accountsheeba g,[address] [facility], [place], [address], [place] [facility] 8 12:13:29 Tendinitis of left wrist region 4084311875637 9100 Active 2018 Zion Montejo PA-C Attn: Accountsheeba g,[address] [facility], [place], [address], [place] [facility] 9 14:32:55 Pain of left ankle joint 0090582100201 9103 Active 2018 she has 2 screws in there Zion Montejo PA-C Attn: Accountsheeba g,[address] [facility], [place], [address], [place] [facility] 9 14:36:08 Administra tion of influenza vaccine Active 2018 Zion Montejo PA-C Attn: Accountsheeba g,[address] [facility], [place], [address], [place] [facility] 9 13:25:32 Cramp in lower limb 006184814 Active 2018 Zion Montejo PA-C Attn: Accountin g,[address] [facility], [place], [address], [place] [facility] 9 13:29:06 Acute sinusitis 54481774 Active Zion Montejo PA-C Attn: Accountin g,[address] [facility], [place], [address], [place] [facility] 6 16:59:06 Hypertensi ve disorder 22086444 Active Zion Montejo PA-C Attn: Accountin g,[address] [facility], [place], [address], [place] [facility] 6 11:55:07 Gastroesop hageal reflux disease 924583461 Active Zion Montejo PA-C Attn: Accountin g,[address] [facility], [place], [address], [place] [facility] 6 11:55:07 Ankle pain 343497488 Active Zion Montejo PA-C Attn: Accountin g,[address] [facility], [place], [address], [place] [facility] 4 14:48:04 Chronic obstructiv e pulmonary disease 63767223 Active Zion Montejo PA-C Attn: Accountin g,[address] [facility], [place], [address], [place] [facility] 6 11:55:07 Chest pain 75893700 Active 2018 Zion Montejo PA-C Attn: Accountin g,[address] [facility], [place], [address], [place] [facility] 9 16:10:54 Acute pharyngiti s 462453611 Active 2019 Zion Montejo PA-C Attn: Accountin g,[address] [facility], [place], [address], [place] [facility] 0 18:05:34 Tobacco dependence syndrome 11072405 Active 2019 Zion Montejo PA-C Attn: Accountin g,[address] [facility], [place], [address], [place] [facility] 0 14:29:56 Overweight 656449819 Active 2019 Zion Montejo PA-C Attn: Accountin g,[address] [facility], [place], [address], [place] [facility] 0 15:54:58 Insect bite, nonvenomou s, of neck 907938788 Active 2019 Zion Montejo PA-C Attn: Accountin g,[address] [facility], [place], [address], [place] [facility] 0 11:30:27 Dental abscess 925518512 Active 2019 Zion Montejo PA-C Attn: Accountin g,[address] [facility], [place], [address], [place] [facility] 0 13:28:33 Hearing loss 50014607 Active 2020 Zion Montejo PA-C Attn: Accountin g,[address] [facility], [place], [address], [place] [facility] 1 16:03:31 Insomnia 660763746 Active Zion Montejo PA-C Attn: Accountin g,[address] [facility], [place], [address], [place] [facility] 6 11:55:07 Angina pectoris 561182328 Active Zion Montejo PA-C Attn: Accountin g,[address] [facility], [place], [address], [place] [facility] 6 11:55:07 Allergic rhinitis 31480414 Active Zion Montejo PA-C Attn: Accountin g,[address] [facility], [place], [address], [place] [facility] 6 11:55:07 Folliculit is 05852301 Active Zion Montejo PA-C Attn: Accountin g,[address] [facility], [place], [address], [place] [facility] 6 11:55:07 Depressive disorder 58473207 Active 2016 Zion Montejo PA-C Attn: Accountin g,[address] [facility], [place], [address], [place] [facility] 7 14:57:10 Anxiety 03115196 Active 2016 Zion Montejo PA-C Attn: Accountin g,[address] [facility], [place], [address], [place] [facility] 7 15:00:25 Hyperlipid emia 31297152 Active 2016 Zion Montejo PA-C Attn: Nanette davis,[address] [facility], [place], [address], [facility] 7 15:04:40 Low back strain 307367983 Active 2016 Zion Montejo PA-C Attn: Nanette davis,[address] [facility], [place], [address], [facility] - [facility] 7 16:00:10 Problem Notes None recorded. Medical Equipment None Reported. Allergies Allergen ID Allergen Name Allergen Category Reaction Reaction Severity Criticality Documentation Date Start Date Code Code System Note Provider Name and Address Organization Details Recorded Time 3060 codeine medicatio n rash Not available Not available 06/26/2014 2670 RxNorm Areli Keene [place] null, [place] [facility] [place] 8 15:52:00 Medications Name Sig Start Date Stop Date [...] Last Updated DateTime 04/19/2020 160.02 cm Starla De Mayra Cr LITO fitch [facility] 04/19/2020 15:37:41 Date Recorded Body height Provider Name an d Address Organization Details Last Updated DateTime 07/05/2020 160.02 cm Starla De La Cr LITO fitch [facility] 07/05/2020 12:15:28 Date Recorded Body height Body mass index (BMI) Body weight Provider Name and Address Organization Details Last Updated DateTime 09/05/2020 160.02 cm 24.4 kg/m2 76461.75 g Areli Young MA [facility] 09/05/2020 12:51:07 Date Recorded Body height Provider Name an d Address Organization Details Last Updated DateTime 10/08/2020 160.02 cm Starla De Mayra fitch MA [facility] 10/08/2020 12:35:04 Social History Question Answer Notes LastModified by Organizat ion Details LastModified Time Tobacco Smoking Status Current Every Day Smoker Starla José MA null, [facility] 12/15/2019 10:59:40 What Is Your Level Of Caffeine Consumption? Moderate Information not available 06/26/2014 How Much Tobacco Do You Chew? None Information not available 06/26/2014 What Type Of Diet Are You Following? REGULAR Information not available 06/26/2014 Marital Status Informatio n not available 06/26/2014 What Was The Date Of Your Most Recent Tobacco Screening? 05/23/2020 [email or web address] Information not available 05/23/2020 At What Age Did You Start Smoking Tobacco? 15 Information not available 06/26/2014 How Much Tobacco Do You Smoke? 1 PPW Pt Is Smoking About 1 1/2 Ppw Information not available 03/21/2020 On What Date Was Tobacco Cessation Counseling Provided? 01/23/2020 Information not available 01/23/2020 How Many Years Have You Smoked Tobacco? 35 Information not available 06/26/2014 Sex: Female Functional Status Question Answer Note LastModified by Organizat ion Details LastModified Time What is your level of alcohol consumption? None Information not available 06/26/2014 Do you or have you ever used smokeless tobacco? Never used smokeless tobacco Information not available 09/05/2020 Do you or have you ever used e-cigarettes or vape? Never used electronic cigarettes Information not available 09/05/2020 What is your exercise level? None Information [...] Skin Problems N Anemia N Heart Attack (AR) N Anxiety Disorder N Diabetes N Muscle, [...] virus, quadrivalent, preservative 9 completed Not Available [facility] 08/19/2019 02:40:53 Influenza, split virus, quadrivalent, preservative 5 completed Not Available [facility] 08/19/2019 02:32:08 Past Encounters Encounter ID Performer Location Encounter Start Date Encounter Closed Date Diagnosis/Indication Diagnosis SNOMED-CT Code Diagnosis ICD10 Code Diagnosis Note [id number] MD Brooke Baez (Adult Med) [address] [place] [address] 06/26/2014 13:34:16 06/27/2014 11:14:11 Acute sinusitis 70496081 Hypertensive disorder 54240745 Gastroesop hageal reflux disease 325218110 Ankle pain 128390064 Chronic ob structive pulmonary disease 12252931 [id number] MD Brooke Baez (Adult Med) [address] [place] [address] 04/16/2015 13:24:28 04/16/2015 14:55:14 Hypertensive disorder 25353611 Gastroesop hageal reflux disease 831814236 Chronic ob structive pulmonary disease 33560725 Active or passive immunization 554583888 Insomnia 914536259 [id number] TYLER Chase (Adult Med) [address] [place] [address] 09/05/2015 15:16:57 09/05/2015 17:19:11 Acute sinusitis 46853317 J01.90 Chronic ob structive pulmonary disease 62806257 J44.9 Gastroesop hageal reflux disease 657390865 K21.9 Hypertensive disorder 38 837864 I10 Insomnia 561064891 G47.0 0 Angina pectoris 42984440 0 I20.9 [id number] TYLER Chase (Adult Med) [address] [place] [address] 0 12/06/2015 15:23:06 12/06/2015 16:28:34 Hypertensive disorder 37411890 I10 Allergic rhinitis 887922 04 J30.9 Chronic ob structive pulmonary disease 99592880 J44.9 Gastroesop hageal reflux disease 744746851 K21.9 Insomnia 398533366 G47.0 0 [id number] Carol Heller MD [facility] (Adult Med) [address] [place] [id number] 03/25/2016 11:30:29 03/25/2016 11:59:50 Folliculitis 20718004 L73.9 Allergic rhinitis 008545 04 J30.9 Chronic ob structive pulmonary disease 42642173 J44.9 Gastroesop hageal reflux disease 502851770 K21.9 Hypertensive disorder 38 580854 I10 Insomnia 336023697 G47.0 0 Angina pectoris 65563673 0 I20.9 [id number] Carol Heller MD [facility] (Adult Med) [address] [place] [id number] 0 09/28/2016 13:24:07 09/28/2016 15:08:30 Insomnia 240500642 G47.00 Depressive disorder 3548 9007 F32.89 Hypertensive disorder 38 525913 I10 Anxiety 44558065 F41.9 Hyperlipidemia 23228804 E78.5 [id number] Carol Heller MD Brooke (Adult Med) [address] [place] [address] 01/21/2017 15:27:44 01/21/2017 16:29:13 Anxiety 87989768 F41.9 Depressive disorder 3548 9007 F32.89 [id number] Carol Heller MD [facility] (Adult Med) [address] [place] [address] 04/06/2017 15:51:13 04/06/2017 16:14:58 Acute sinusitis 99438475 J01.90 Chronic ob structive pulmonary disease 00488658 J44.9 Anxiety 29071576 F41.9 [id number] Carol Heller MD [facility] (Adult Med) [address] [place] [id number] 0 06/07/2017 15:25:56 06/07/2017 16:08:23 Acute sinusitis 86601784 J01.90 Insomnia 721310605 G47.0 0 Hypertensive disorder 38 247236 I10 Gastroesop hageal reflux disease 845013486 K21.9 Depressive disorder 3548 9007 F32.89 Hyperlipidemia 88223384 E78.5 Anxiety 64518614 F41.9 Chronic ob structive pulmonary disease 42877999 J44.9 Low back strain 05039484 1 S39.012D [id number] MD Brooke Baez (Adult Med) [address] [place] [id number] 11/02/2017 15:26:13 11/02/2017 16:22:00 Anxiety 02105908 F41.9 Acute bronchitis 0166046 2 J20.9 Hearing loss 81455711 H9 1.93 Chronic ob structive pulmonary disease 78154921 J44.9 [id number] MD Brooke Baez (Adult Med) [address] [place] [id number] 0 02/03/2018 10:30:36 02/07/2018 09:47:17 Anxiety 86559278 F41.9 Hypertensive disorder 38 511560 I10 Chronic ob structive pulmonary disease 82383940 J44.9 Gastroesop hageal reflux disease 721371069 K21.9 Angina pectoris 39686264 0 I20.9 Hyperlipidemia 33645463 E78.5 Family his tory of diabetes mellitus with complication 607863532 Z83.3 Screening for disorder 914858689 Z13.9 Screening for malignant neoplasm of colon 763746044 Z12.11 Depressive disorder 3548 9007 F32.89 Insomnia 237191419 G47.0 0 Low back strain 22931157 1 S39.012D [id number] Carol Heller MD [facility] (Adult Med) [address] [place] [id number] 05/17/2018 17:25:20 05/18/2018 09:54:52 Acute bronchitis 14867501 J20.9 Anxiety 50517484 F41.9 Gastroesop hageal reflux disease 156454727 K21.9 Chronic ob structive pulmonary disease 59141454 J44.9 [id number] MD Brooke Baez (Adult Med) [address] [place] [address] 0 09/22/2018 13:26:08 09/23/2018 09:03:01 Anxiety 67688803 F41.9 Hypertensive disorder 38 260134 I10 Depressive disorder 3548 9007 F32.89 Tendinitis of left wrist region 9004750122 6314762 M77.8 Pain of le ft ankle joint 1049562442 8971827 M25.572 Acute bronchitis 6528530 2 J20.9 Low back strain 57923826 1 S39.012D Hyperlipidemia 66905376 E78.5 Chronic ob structive pulmonary disease 51899388 J44.9 Insomnia 471353862 G47.0 0 Gastroesop hageal reflux disease 216811967 K21.9 Allergic rhinitis 115821 04 J30.9 [id number] Carol Heller MD [facility] (Adult Med) [address] [place] [id number] 0 12/12/2018 15:25:44 12/13/2018 10:56:11 Pain of left ankle joint 3906246841 8086112 M25.572 Anxiety 99854030 F41.9 Acute bronchitis 9835730 2 J20.9 Hyperlipidemia 18059767 E78.5 Depressive disorder 3548 9007 F32.89 Gastroesop hageal reflux disease 769264600 K21.9 Hypertensive disorder 38 436120 I10 Allergic rhinitis 518205 04 J30.9 [id number] Carol Heller MD [facility] (Adult Med) [address] [place] [id number] 0 02/22/2019 10:25:58 02/23/2019 08:59:31 Acute bronchitis 03295345 J20.9 Pain of le ft ankle joint 6713497030 6016456 M25.572 Hyperlipidemia 37994908 E78.5 Anxiety 10731414 F41.9 Depressive disorder 3548 9007 F32.89 Chronic ob structive pulmonary disease 14921618 J44.9 Insomnia 368162606 G47.0 0 Gastroesop hageal reflux disease 007172029 K21.9 Hypertensive disorder 38 045072 I10 Allergic rhinitis 501135 04 J30.9 [id number] Carol Heller MD [facility] (Adult Med) [address] [place] [id number] 03/27/2019 14:25:55 03/28/2019 08:19:16 Hypertensive disorder 28094684 I10 Pain of le ft ankle joint 6730843243 5274120 M25.572 Anxiety 16185965 F41.9 Low back strain 95499660 1 S39.012D Hyperlipidemia 46036199 E78.5 Depressive disorder 3548 9007 F32.89 Chronic ob structive pulmonary disease 25375807 J44.9 Insomnia 234360830 G47.0 0 Angina pectoris 04036625 0 I20.9 Gastroesop hageal reflux disease 476793659 K21.9 Allergic rhinitis 827721 04 J30.9 [id number] Carol Helelr MD [facility] (Adult Med) [address] [place] [address] 0 05/05/2019 11:28:33 05/05/2019 13:34:28 Pain of left ankle joint 6763217536 7996417 M25.572 Anxiety 97054702 F41.9 Administra tion of influenza vaccine 42962255 Z23 Cramp in lower limb 4499 26197 R25.2 bilateral Allergic rhinitis 157609 04 J30.9 Hypertensive disorder 38 033246 I10 Gastroesop hageal reflux disease 641780001 K21.9 Insomnia 733880907 G47.0 0 Chronic ob structive pulmonary disease 24857694 J44.9 Depressive disorder 3548 9007 F32.89 Hyperlipidemia 39231142 E78.5 [id number] Carol Heller MD [facility] (Adult Med) [address] [place] [address] 0 06/08/2019 14:24:29 06/08/2019 15:32:31 Acute bronchitis 75523991 J20.9 Pain of le ft ankle joint 0713811347 5534364 M25.572 Anxiety 61158708 F41.9 Chronic ob structive pulmonary disease 64470532 J44.9 Hyperlipidemia 11211409 E78.5 Depressive disorder 3548 9007 F32.89 Insomnia 943509948 G47.0 0 Gastroesop hageal reflux disease 610761575 K21.9 Hypertensive disorder 38 139875 I10 Allergic rhinitis 362107 04 J30.9 [id number] Carol Heller MD [facility] (Adult Med) [address] [place] [id number] 0 07/11/2019 15:28:24 07/11/2019 16:26:24 Administration of influenza vaccine 77032379 Z23 Hyperlipidemia 84796389 E78.5 Hypertensive disorder 38 274101 I10 Gastroesop hageal reflux disease 726486707 K21.9 Insomnia 042990757 G47.0 0 Anxiety 82810510 F41.9 Pain of le ft ankle joint 5053772460 2441795 M25.572 Chest pain 94419173 R07. 9 Allergic rhinitis 678972 04 J30.9 Chronic ob structive pulmonary disease 33853759 J44.9 Depressive disorder 3548 9007 F32.89 [id number] Carol Heller MD [facility] (Adult Med) [address] [place] [address] 0 08/11/2019 17:22:26 08/11/2019 18:12:48 Hyperlipidemia 61506771 E78.5 Allergic rhinitis 191242 04 J30.9 Acute bronchitis 8422656 2 J20.9 Chronic ob structive pulmonary disease 06062163 J44.9 Acute pharyngitis 858766 003 J02.9 Pain of le ft ankle joint 1845473294 5734888 M25.572 Insomnia 714816165 G47.0 0 Gastroesop hageal reflux disease 368059172 K21.9 Depressive disorder 3548 9007 F32.89 [id number] Carol Heller MD [facility] (Adult Med) [address] [place] [id number] 0 09/08/2019 15:23:24 09/11/2019 09:11:40 Chronic obstructive pulmonary disease 46441990 J44.9 Depressive disorder 3548 9007 F32.89 Gastroesop hageal reflux disease 716158711 K21.9 Hyperlipidemia 72294736 E78.5 Insomnia 101212464 G47.0 0 Pain of le ft ankle joint 5514708836 3294261 M25.572 Hypertensive disorder 38 756125 I10 Anxiety 70252052 F41.9 Allergic rhinitis 720495 04 J30.9 [id number] Carol Heller MD [facility] (Adult Med) [address] [place] [id number] 0 10/06/2019 15:21:10 10/09/2019 13:43:07 Anxiety 28892539 F41.9 Pain of le ft ankle joint 1793478360 0486268 M25.572 Overweight 498210977 E66 .3 Allergic rhinitis 930637 04 J30.9 [id number] TYLER Chase (Adult Med) [address] [place] [id number] 0 11/07/2019 14:19:03 11/07/2019 16:25:18 Allergic rhinitis 79321055 J30.9 Ankle pain 632450622 M25 .579 Chronic ob structive pulmonary disease 08376792 J44.9 Gastroesop hageal reflux disease 137697439 K21.9 Hyperlipidemia 64673501 E78.5 Hypertensive disorder 38 694654 I10 Insomnia 908807772 G47.0 0 Low back strain 05907244 1 S39.012D Pain of le ft ankle joint 3415679452 0888244 M25.572 Acute bronchitis 9616372 2 J20.9 [id number] MD Brooke Baez (Adult Med) [address] [place] [address]6350[address] 0 12/07/2019 12:41:47 12/08/2019 11:46:51 Pain of left ankle joint 8177275023 4047569 M25.572 Hypertensive disorder 38 993898 I10 Anxiety 07164736 F41.9 Allergic rhinitis 339455 04 J30.9 Chronic ob structive pulmonary disease 99458122 J44.9 Depressive disorder 3548 9007 F32.89 Gastroesop hageal reflux disease 310129964 K21.9 Hyperlipidemia 23863492 E78.5 Insomnia 884237248 G47.0 0 Angina pectoris 49817453 0 I20.9 [id number] MD Brooke Baez (Adult Med) [address] [place] [address]05[address] 0 12/15/2019 08:01:46 12/15/2019 11:31:49 Insect bite, nonvenomous, of neck 087152073 S10.96XA Allergic rhinitis 517778 04 J30.9 Chronic ob structive pulmonary disease 23842326 J44.9 Depressive disorder 3548 9007 F32.89 Gastroesop hageal reflux disease 224529750 K21.9 Hyperlipidemia 26419072 E78.5 Hypertensive disorder 38 641902 I10 Insomnia 689627778 G47.0 0 [id number] MD Brooke Baez (Adult Med) [address] [place] [address] [id number] 0 01/23/2020 13:38:37 01/23/2020 14:41:57 Chronic obstructive pulmonary disease 74806225 J44.9 Gastroesop hageal reflux disease 642051350 K21.9 Hyperlipidemia 07400753 E78.5 Hypertensive disorder 38 826644 I10 Insomnia 616147052 G47.0 0 Tobacco de pendence syndrome 53357045 F17.200 Allergic rhinitis 186599 04 J30.9 Depressive disorder 3548 9007 F32.89 Pain of le ft ankle joint 0847717872 1225606 M25.572 Ankle pain 360489856 M25 .784 [id number] MD Brooke Baez (Adult Med) [address] [place] [address] [id number] 0 03/21/2020 08:02:24 03/21/2020 16:54:06 Pain of left ankle joint 9595255597 0924495 M25.572 Allergic rhinitis 461148 04 J30.9 Ankle pain 771838378 M25 .579 Chronic ob structive pulmonary disease 90426216 J44.9 Depressive disorder 3548 9007 F32.89 Gastroesop hageal reflux disease 733817158 K21.9 Hyperlipidemia 40544813 E78.5 Hypertensive disorder 38 143067 I10 Insomnia 626216244 G47.0 0 Tobacco de pendence syndrome 31454809 F17.609 [id number] Carol Heller MD [facility] (Adult Med) [address] [place] [address] [id number] 0 04/19/2020 08:14:13 04/19/2020 16:25:30 Pain of left ankle joint 6349530770 7017280 M25.572 Anxiety 63333251 F41.9 Allergic rhinitis 573026 04 J30.9 Chronic ob structive pulmonary disease 68986217 J44.9 Depressive disorder 3548 9007 F32.89 Gastroesop hageal reflux disease 038868182 K21.9 Hyperlipidemia 45013893 E78.5 Hypertensive disorder 38 661909 I10 Insomnia 106690939 G47.0 0 Tobacco de pendence syndrome 11171208 F17.721 [id number] MD Brooke Baez (Adult Med) [address] [place] [address] 58410-957 0 05/23/2020 07:48:29 05/23/2020 15:57:19 Chronic obstructive pulmonary disease 48007575 J44.9 Depressive disorder 3548 9007 F32.89 Pain of le ft ankle joint [id number] 0786630 M25.572 Allergic rhinitis 420564 04 J30.9 Tobacco de pendence syndrome 44684520 F17.200 Insomnia 995570768 G47.0 0 Hypertensive disorder 38 759649 I10 Hyperlipidemia 40856107 E78.5 Gastroesop hageal reflux disease 601187271 K21.9 Anxiety 61819099 F41.9 Ankle pain 480529071 M25 .260 [id number] MD Brooke Baez (Adult Med) [address] [place] [address] [phone] 07/05/2020 10:22:47 07/05/2020 15:19:41 Anxiety 08867629 F41.9 Pain of le ft ankle joint 1173394936 4147867 M25.572 Dental abscess 337528022 K04.7 Gastroesop hageal reflux disease 624034485 K21.9 Hyperlipidemia 81615649 E78.5 Hypertensive disorder 38 338843 I10 Insomnia 319954850 G47.0 0 Low back strain 96025133 1 S39.012D Tobacco de pendence syndrome 41867387 F17.200 Allergic rhinitis 340430 04 J30.9 [id number] [facility] [address] [place] [address] [phone] 09/05/2020 09:00:17 09/06/2020 09:14:18 Acute bronchitis 14388519 J20.9 Anxiety 82538640 F41.9 Pain of le ft ankle joint 6724205214 3742882 M25.572 Hearing loss 48646442 H9 1.93 [id number] MD Brooke Baez (Adult Med) [address] [place] [address] [phone] 10/08/2020 08:50:50 10/08/2020 13:02:41 Allergic rhinitis 06927173 J30.9 Anxiety 41943858 F41.9 Chronic ob structive pulmonary disease 66484503 J44.9 Depressive disorder 3548 9007 F32.89 Gastroesop hageal reflux disease 940717506 K21.9 Hyperlipidemia 45601048 E78.5 Hypertensive disorder 38 391749 I10 Insomnia 144933238 G47.0 0 Tobacco de pendence syndrome 30825577 F17.200 Health Concerns Section Related Observation LastModified by Organization Detai ls LastModified Time None Recorded Concern Status LastModified by Organization Details LastModified Time None Recorded Advance Directives Directive None Recorded Payers Encounter Date Sequence Insurance Name Policy Number Policy Camilo Covered Member ID Camilo Member ID Guarantor Name 04/19/2020 1 [employer] [place]IC[place]AC[place]) [place] [id number] Marilyn Cubilla 05/23/2020 1 [employer] [place] Marilyn Cubilla [id number] Marilyn Cubilla 07/05/2020 1 [employer] [place] Marilyn Cubilla [id number] [place] 09/05/2020 1 [employer] [place] [id number] [place] 10/08/2020 1 [employer] [place]) Marilyn Cubilla [id number] Marilyn Cubilla Notes Date Note Type Note Provider Name and Address Organization Details Recorded Time 04/19/2020 text/html purse stojoe at grocery...... Zion Montejo PA-C Attn: Accounting,[address] [place], [address], [facility] 04/22/2020 21:59:12 05/23/2020 text/html they have a dumpster , her back is so tight ...ankle with screws gave out ... Zion Montejo PA-C Attn: [address]ing,[address] [place], [address], [facility] 05/27/2020 10:51:34 07/05/2020 text/html left 3rd molar lower ... infected .. for 3 weeks ... saw Dentist Zion Montejo PA-C Attn: [address]ing,[address] [place], [address], [facility] 07/09/2020 13:02:02 10/08/2020 text/html [place] , sons took her to get away , , she was there with him , he apologized , she forgave him ... Zion Montejo PA-C Attn: Accounting,[address] [facility], [place], [address], [place] [facility] 10/09/2020 17:51:05 OBGyn Episode No OBEpisode recorded.
--- OUTSIDE RECORDS SUMMARY | 2024-12-20 14:29 | XMS_ITS | Clinical Summary ---
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 Name Role Phone Unknown, Notinfile Primary Care Provider Unavail able Allergies No known active allergies Medications atorvastatin (LIPITOR) 80 mg tablet Administer per tube 1 tablet (80 mg total) nightly Active bisacodyL (DULCOLAX) 10 mg suppositoryIndic ations:constipat ion Insert 1 suppository (10 mg total) into the rectum daily as needed for constipation Active famotidine (PEPCID) 20 mg tablet Administer per tube 1 tablet (20 mg total) 2 (two) times a day Active albuterol HFA (PROVENTIL HFA,VENTOLIN HFA,PROAIR HFA) 90 mcg/actuation inhaler Inhale 2 puffs every 6 (six) hours as needed for wheezing Active cholecalciferol (VITAMIN D-3) 25 mcg (1,000 unit) tablet Administer per tube 1 tablet (1,000 Units total) daily Active ascorbic acid 500 mg tablet,chewable Administer 1 tablet/chew tab (500 mg total) per feeding tube daily Active ezetimibe (ZETIA) 10 mg tablet Administer per tube 1 tablet (10 mg total) daily Active sertraline (ZOLOFT) 20 mg/mL concentrated solution Take 75 mg by mouth daily Per g-tube Active ondansetron (ZOFRAN) 4 mg tablet Administer per tube 1 tablet (4 mg total) every 6 (six) hours as needed for nausea or vomiting Active aspirin 81 mg chewable tablet Take 1 tablet (81 mg total) by mouth daily Administer per tube 1 tablet daily Active lisinopriL (QBRELIS) 1 mg/mL solution Take 5 mL (5 mg total) by mouth daily Administer per G-tube Active loratadine (CLARITIN) 10 mg tablet Take 1 tablet (10 mg total) by mouth daily Administer 1 tablet per G-tube Active diclofenac sodium (VOLTAREN) 1 % gel Apply 2 g topically daily Apply to bilateral hips topically daily. Hip pain Active acetaminophen (TYLENOL) 325 mg tablet Take 2 tablets (650 mg total) by mouth every 4 (four) hours as needed for pain Administer per g tube Active carvediloL (COREG) 6.25 mg tablet Administer per tube 1 tablet (6.25 mg total) 2 (two) times a day with meals 5 026 Active ferrous sulfate elixir 220 mg/5 mL (44 mg/5 mL of elemental iron) Administer per tube 7.5 mL (330 mg total) daily 5 Active loperamide (IMODIUM) 2 mg capsule Take 1 capsule (2 mg total) by mouth every 4 (four) hours as needed for diarrhea (for each episode of diarrhea after 4mg dose to max 16mg total in 24h) 5 Active simethicone (MYLICON) drops 40 mg/0.6 mL Administer per tube 0.6 mL (40 mg total) 5 times daily as needed (bloating, gas pain) 5 Active Active Problems Problem Noted Date Diagnosed Date History of stroke 10/20/2024 Assessment & Plan (10/25/2024 1:25 PM CDT): CVA in 2020 per report with residual R-sided weakness, aphasia, and dysphagia requiring G-tube - Nonverbal at baseline per facility, though spoke in short, dysarthric sentences 10/25. Follows simple commands and nods head yes/no - Aspirin and Atorvastatin via PEG Assessment & Plan (10/22/2024 11:29 AM CDT): CVA in 2020 per report with residual R-sided weakness, aphasia, and dysphagia requiring G-tube - Nonverbal at baseline per facility, though opens eyes to voice. Follows simple commands. - Aspirin and Atorvastatin once receiving nutrition. Assessment & Plan (10/21/2024 3:04 PM CDT): CVA in 2020 per report with residual R-sided weakness, aphasia, and dysphagia requiring G-tube - Nonverbal at baseline per facility, though opens eyes to voice. Follows simple commands. - Aspirin and Atorvastatin once receiving nutrition. Depression, major, recurrent 10/20/2024 Assessment & Plan (10/25/2024 1:26 PM CDT): Med list with two SSRIs currently for unclear reasons. - Resumed Sertraline - per Pharmacy, has not filled Fluoxetine since early Sep, unable to reconcile with facility as faxes not transmitting Assessment & Plan (10/22/2024 11:29 AM CDT): On two SSRIs currently for unclear reasons. Plans to resume Sertraline and hold Fluoxetine given limited concern for withdrawal with long half-life Assessment & Plan (10/21/2024 3:04 PM CDT): On two SSRIs currently for unclear reasons. 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 Abdominal fluid collection 10/19/2024 Assessment & Plan (10/25/2024 7:36 AM CDT): Patient presenting from nursing facility following discharge of what appeared to be recently administered tube feeds from her prior cholecystostomy site (drain fell out in 10/2021 per documentation) Admission diagnostics w/ CMP/CBC stable, lactate 1.8, lipase 26, and CT-A/P with 5cm fluid/gas collection over site of prior cholecystostomy and decompressed gallbladder with cholelithiasis - unable to comment on specific cholecystogastric fistula as not tract seen Based on penitentiary report , presumed that this may be due to above concern for fistula. Plan - 10/20 Upper GI series: No cholecystogastric fistula. - 10/22 RUQ US: noted 2.4x0.9x1.1cm fluid/air. - IR Consult - no entero-biliary fistula, resume feeds - collection over liver too small for drain placement. Collection also communicates to skin and can freely drain - cont Abx - s/p Zosyn x2 days, transitioned to Cipro/Flagyl via PEG for total 10 day course - cont TF as elsewhere Assessment & Plan (10/22/2024 2:12 PM CDT): Patient presenting from nursing facility following discharge of what appeared to be recently administered tube feeds from her prior cholecystostomy site (drain fell out in 10/2021 per documentation) Admission diagnostics w/ CMP/CBC stable, lactate 1.8, lipase 26, and CT-A/P with 5cm fluid/gas collection over site of prior cholecystostomy and decompressed gallbladder with cholelithiasis - unable to comment on specific cholecystogastric fistula as not tract seen Based on penitentiary report , presumed that this may be due to above concern for fistula. Plan - 10/20 Upper GI series: No cholecystogastric fistula. - 10/22 RUQ US: noted 2.4x0.9x1.1cm fluid/air. - IR Consult placed. Team has acknowledge consult and will determine if intervention warranted. - Continue Zosyn 3.375mg q6hrs - IVF in setting of NPO. Assessment & Plan (10/21/2024 3:04 PM CDT): Patient presenting from nursing facility following discharge of what appeared to be recently administered tube feeds from her prior cholecystostomy site (drain fell out in 10/2021 per documentation) Admission diagnostics w/ CMP/CBC stable, lactate 1.8, lipase 26, and CT-A/P with 5cm fluid/gas collection over site of prior cholecystostomy and decompressed gallbladder with cholelithiasis - unable to comment on specific cholecystogastric fistula as not tract seen Based on penitentiary report , presumed that this may be due to above concern for fistula. Plan - 10/20 Upper GI series: No cholecystogastric fistula. - 10/22 Plans for RUQ US to re-evaluate if worsening fluid collection/ need for percutaneous drain. - Will reach out to ACCS vs IR pending results - Continue Zosyn 3.375mg q6hrs - IVF in setting of NPO. - NPO without tube feeds at this time Bleeding 01/24/2021 Assessment & Plan (01/28/2021 5:05 PM CDT): -Bleeding from PCT, IR and HBSurg consulted. Initially NPO (holding TF per Gtube) and continued IVFs. No coagulopathy -CT abd/p w/ 01/25 here w/ acute cholecystitis, no bleeding source [...] and continued IVFs. No coagulopathy -CT abd/p w/ 01/25 here w/ acute cholecystitis, no bleeding source [...] and cont IVFs -No coagulopathy -CT abd/p w/ 01/25 here w/ acute cholecystitis, no bleeding source [...] and cont IVFs -No coagulopathy -CT abd/p w/ 01/25 here w/ acute cholecystitis, no bleeding source identified, no hematoma or abscess. -Of note, Hgb has remained stable as compared to OSH labs. Monitor serial blood counts. Assessment & Plan (01/24/2021 10:54 PM CDT): -Bleeding from PCT and work-up/plan as noted above -Of note, Hgb has remained stable as compared to OSH labs COPD (chronic obstructive pulmonary disease) Assessment & Plan (10/23/2024 6:06 PM CDT): - Cont albuterol PRN Assessment & Plan (10/22/2024 11:29 AM CDT): - Cont albuterol PRN Assessment & Plan (10/21/2024 3:04 PM CDT): - Cont albuterol PRN Assessment & Plan (01/28/2021 5:05 PM CDT): [...] -Tobacco cessation Hypertension 01/24/2021 Assessment & Plan (10/23/2024 6:02 PM CDT): - Resumed Carvedilol and Lisinopril via PEG - Blood pressure stable Assessment & Plan (10/22/2024 2:12 PM CDT): - Resume Carvedilol and Lisinopril once okay for feeds - Blood pressure stable at 140/72 Assessment & Plan (10/21/2024 3:04 PM CDT): - Resume Carvedilol and Lisinopril once okay for feeds Assessment & Plan (01/28/2021 5:07 PM CDT): [...] as needed. Will continue Coreg 3.125 BID. G tube feedings 01/24/2021 Assessment & Plan (10/25/2024 7:36 AM CDT): No fistula noted on eval with contrast per IR. OK to resume feeds - RD following - Jevity 1.5 at GOAL of 240 ml 5x/day (0600, 1000, 1400, 1800, 2200). - water flush of 120 ml with each feed. Adjust flush as needed Assessment & Plan (10/22/2024 2:12 PM CDT): - On hold until further evaluation - RD has provided recs for TF Assessment & Plan (10/21/2024 3:04 PM CDT): - On hold until further evaluation Assessment & Plan (01/28/2021 5:08 PM CDT): -Initially kept NPO for possible procedure. S/b coordinator of placement. OP regimen is Glucerna 360mL QID with 180mL FWF with each feed. Resumed TF and tolerated. Assessment & Plan (01/27/2021 3:35 PM CDT): -Initially Keep NPO for possible procedure, TF orders placed on hold. S/b coordinator of placement. OP regimen is Glucerna 360mL QID with 180mL FWF with each feed. Resumed and tolerated. Assessment & Plan (01/26/2021 12:51 PM CDT): -Initially Keep NPO for possible procedure, TF orders placed on hold. S/b coordinator of placement. -OP regimen is Glucerna 360mL QID with 180mL FWF with each feed. -Resume as tolerated. Assessment & Plan (01/25/2021 11:37 AM CDT): -Keep NPO for possible procedure, TF orders placed on hold. S/b coordinator of placement. -OP regimen is Glucerna 360mL QID with 180mL FWF with each feed. Assessment & Plan (01/24/2021 10:59 PM CDT): -Keep NPO for possible IR procedure tomorrow -Was receiving continuous TF at OSH, although outpt regimen is Glucerna 360mL QID with 180mL FWF with each feed. Resolved Problems Problem Noted Date Diagnosed Date Resolved Date Acute cholecystitis 01/24/2021 10/21/19 Assessment & Plan (01/28/2021 5:04 PM CDT): -Pt initially presented to OSH on 01/18 with N/V with CT showing findings c/w acute cholecystitis. She is s/p percutaneous cholecystostomy tube placement on 01/20, now with persistent bloody output from drain and transferred to [facility] for further management. -Initial OSH CT uploaded [...] bloody output from drain and transferred to [facility] for further management. -Initial OSH CT uploaded [...] bloody output from drain and transferred to [facility] for further management. -Initial OSH CT uploaded [...] bloody output from drain and transferred to [facility] for further management. -Initial OSH CT uploaded [...] bloody output from drain and transferred to [facility] for further management. -Initial OSH CT uploaded [...] cultures and de-escalate abx pending cx results. Stroke 01/24/2021 10/20/2024 Assessment & Plan (01/28/2021 5:07 PM CDT): [...] s/p G-tube -Continue ASA 81, atorvastatin 80 Encounters Date Type Department Care Team Description 10/20/2024 2:14 PM CDT - 10/20/2024 11:59 PM CDT Hospital Encounter [facility] Radiology [address] [place] [address] Discharge Disposition: Discharge to home or self care 10/19/2024 12:50 PM CDT - 10/25/2024 5:00 PM CDT Hospital Encounter [facility] [address] [place] [address] Timi Wilcox MD Pinkerton, MD Jesus Tena, Abebe Aranda MD PhD Johnnie, MD Beck Rdz Sarakshi, MD Flores-Ruiz, MD Moncho Peralta, Ana Paula Vilchis MD PhD Gastrostomy tube dysfunction (HCC) (Primary Dx) Discharge Disposition: Discharge to SNF from Last 3 Months Surgical History Surgery Date Site/Laterality Comments GALLBLADDER DRAINAGE IR CHOLANGIOGRAM THROUGH EXISTING CATHETER 01/27/2021 N/A Medical History Medical History Date Comments COPD (chronic obstructive pulmonary disease) (HC C) Hypertension Depression Stroke (HCC) Dysphagia 2022 GERD (gastroesophageal reflux disease) Hyperlipidemia Social History Tobacco Use Types Packs/Day Years Used Date Smoking Tobacco: Every Day Cigarettes Smokeless Tobacco: Never Tobacco Cessation:Ready to Q uit: Not Asked Alcohol Use Standard Drinks/Week Comments Not Currently 0 (1 standard drink = 0.6 oz pur e alcohol) Personal Safety Answer Date Recorded Have you ever been in or are you currently in a harmful physical or emotional relationship or is someone making you feel afraid or unsafe? Patient unable to answer 10/19/2024 Comments No Sex and Gender Information Value Date Recorded Sex Assigned at Not on file Legal Sex Female 10:27 AM CDT Gender Identity Not on file Sexual Orientation Not on file Obstetrics History Last Filed Vital Signs Vital Sign Reading Time Taken Comments Blood Pressure 103/61 10/25/2024 3:24 PM CDT Pulse 85 10/25/2024 3:24 PM CDT Temperature 36.6 C (97.8 F) 10/25/2024 3:24 PM CDT Respiratory Rate 17 10/25/2024 3:24 PM CDT Oxygen Saturation 97% 10/25/2024 3:24 PM CDT Inhaled Oxygen Concentration - - Weight 52.2 kg (115 lb) 10/20/2024 7:45 PM CDT Height 167.6 cm (5' 6 ) 10/20/2024 7:45 PM CDT Body Mass Index 18.56 10/20/2024 7:45 PM CDT Plan of Treatment Health Maintenance Due Date Last Done Comments Breast Cancer Screening-Mammogram 1961 Cervical Cancer Screening 1961 Colon Cancer Screening-Colonoscopy 1961 Depression Screening 1961 Hepatitis C Screening 1961 DTaP/Tdap/Td Vaccine (1 - Tdap) 1972 Hepatitis B Screening 1979 Regular Well Visit/Exam 18-64 1979 Pneumococcal vaccine <65 (1 of 2 - PCV) 1980 Zoster Vaccine (1 of 2) 2011 Covid-19 Vaccine (2 - season) 2024 Influenza Vaccine (Season Ended) 2025 05/19/2021, 07/11/2019, 04/16/2015 Procedures Procedure Name Priority Date/Time Associated Diagnosis Comments EGFR Routine 10/24/2024 9:31 PM CDT PHOSPHORUS Routine 10/24/2024 9:31 PM CDT MAGNESIUM Routine 10/24/2024 9:31 PM CDT CBC WITHOUT DIFFERENTIAL Routine 10/24/2024 9:31 PM CDT BASIC METABOLIC PANEL Routine 10/24/2024 9:31 PM CDT EGFR Routine 10/23/2024 8:14 PM CDT CBC WITHOUT DIFFERENTIAL Routine 10/23/2024 8:14 PM CDT BASIC METABOLIC PANEL Routine 10/23/2024 8:14 PM CDT PROTIME-INR Routine 10/22/2024 8:30 PM CDT CBC WITHOUT DIFFERENTIAL Routine 10/22/2024 8:30 PM CDT US RUQ IP Routine 10/22/2024 9:40 AM CDT EGFR Timed 10/22/2024 9:00 AM CDT PHOSPHORUS STAT 10/22/2024 9:00 AM CDT MAGNESIUM STAT 10/22/2024 9:00 AM CDT CBC WITHOUT DIFFERENTIAL STAT 10/22/2024 9:00 AM CDT BASIC METABOLIC PANEL Timed 10/22/2024 9:00 AM CDT BLOOD CULTURE STAT 10/20/2024 11:30 PM CDT BLOOD CULTURE STAT 10/20/2024 11:19 PM CDT FL UPPER GI SERIES, SINGLE CONTRAST ED 10/20/2024 2:56 PM CDT XR ABDOMEN AP 1 VIEW IP Routine 10/20/2024 1:55 PM CDT EGFR Routine 10/20/2024 4:07 AM CDT DIFFERENTIAL AUTO Routine 10/20/2024 4:0 7 AM CDT CRP (ACUTE PHASE) Routine 10/20/2024 4:0 7 AM CDT ERYTHROCYTE SEDIMENTATION RATE Routine 10/20/2024 4:07 AM CDT PROTIME-INR Routine 10/20/2024 4:07 AM CDT CBC WITH AUTO DIFFERENTIAL Routine 10/20/2024 4:07 AM CDT PHOSPHORUS Routine 10/20/2024 4:07 AM CDT MAGNESIUM Routine 10/20/2024 4:07 AM CDT BASIC METABOLIC PANEL Routine 10/20/2024 4:[address] ABDOMEN PELVIS W CONTRAST ED 10/19/2024 4:16 PM CDT POCT CREATININE - DEVICE Routine 10/19/2024 2:23 PM CDT POCT LACTATE - DEVICE Routine 10/19/2024 2:14 PM CDT EGFR STAT 10/19/2024 2:07 PM CDT DIFFERENTIAL AUTO STAT 10/19/2024 2:0 7 PM CDT LIPASE STAT 10/19/2024 2:07 PM CDT COMPREHENSIVE METABOLIC PANEL STAT 10/19/2024 2:07 PM CDT CBC WITH AUTO DIFFERENTIAL STAT 10/19/2024 2:07 PM CDT from Last 3 Months Results * eGFR (10/24/2024 9:31 PM CDT) Pathologist [facility] eGFR >90 >=60 mL/min/1. 73 m2 Comment: Interpretive Data Reference Interval Normal >/= 90 mL/min/1.73m2 Mildly decreased* 60 - 89 mL/min/1.73m2 Mildly to moderately decreased 45 - 59 mL/min/1.73m2 Moderately to severely decreased 30 - 44 mL/min/1.73m2 Severely decreased 15 - 29 mL/min/1.73m2 Kidney Failure < 15 mL/min/1.73m2 *Relative to young adult level Estimated glomerular filtration rate is determined by the 2020 CKD-EPI equation recommended by the National Kidney Foundation (A Unifying Approach to GFR Estimation: Recommendations of the NKF-ASK Task Force on Reassessing the Inclusion of Race in Diagnosing Kidney Disease, JASN 2020). The CKD-EPI equation should not be used for patients with unstable renal function and has not been validated in children and those over 70. Current interpretive data was last reviewed 2021. Blood 10/24/2024 9:31 PM CDT 10/24/2024 10:58 PM CDT us Camille Garcia NP LAB BLOOD ORDERABLES Final Resul t [facility] [place] [address] * (ABNORMAL) CBC without differential (10/24/2024 9:31 PM CDT) WBC 7.7 3.8 - 9.9 K/cumm Hgb 9.4(L) 11.9 - 15.5 g/dL [facility] Hct 29.4(L) 35.6 - 45.5 % [facility] Plt 293 150 - 400 K/cumm [facility] MPV 10.3 9.1 - 12.3 fL [facility] RBC 3.68(L) 3.90 - 5.20 M/cumm [facility] MCV 79.9(L) 81.3 - 96.4 fL [facility] MCH 25.5(L) 27.1 - 33.3 pg [facility] MCHC 32.0(L) 32.3 - 35.7 g/dL [facility] RDW CV 13.9 11.1 - 14.9 % [facility] RDW SD 40.4 35.7 - 48.1 fL [facility] NRBC abs 0.00 0.00 - 0.01 K/cumm [facility] Blood 10/24/2024 9:31 PM CDT 10/24/2024 10:59 PM CDT Camille Garcia PATIENT SCHEDULING MANAGER LAB BLOOD ORDERABLES Final Resul t Performing Organization Address [facility] Co de Phone Number [facility] [place] [address] * (ABNORMAL) Phosphorus (10/24/2024 9:31 PM CDT) Pathologist [facility] Phosphorus, pl 1.7(L) 2.3 - 4.5 mg/dL Blood 10/24/2024 9:31 PM CDT 10/24/2024 10:58 PM CDT Sangita Olmos [facility] LAB BLOOD ORDERABL ES Final Result Performing Organization Address [facility] de Phone Number [facility] Department [place] [address] * Magnesium (10/24/2024 9:31 PM CDT) [facility] Magnesium 1.6 1.4 - 2.5 mg/dL Blood 10/24/2024 9:31 PM CDT 10/24/2024 10:58 PM CDT [facility]ABL ES Final Result Performing Organization Address [facility] de Phone Number [facility] [place] [address] * (ABNORMAL) Basic metabolic panel (10/24/2024 9:31 PM CDT) Pathologist [facility] Sodium 148(H) 135 - 145 mmol/L Potassium, pl 4.0 3.3 - 4.9 mmol/L [facility] Chloride 116(H) 97 - 110 mmol/L [facility] CO2 24 22 - 32 mmol/L [facility] Anion gap 8 2 - 15 mmol/L [facility] BUN 8 6 - 25 mg/dL [facility] Creatinine 0.44(L) 0.60 - 1.10 mg/dL [facility] Glucose 153 70 - 199 mg/dL [facility] Comment: Interpretive Data Fasting glucose >/= 126 mg/dl is diagnostic for diabetes. Fasting is defined as no caloric intake for at least 8 hours. Fasting glucose between 100 mg/dl to 125 mg/dl is diagnostic of prediabetes. In a patient with classic symptoms of hyperglycemia or hyperglycemic crisis, a random glucose >/= 200 mg/dl is diagnostic for diabetes. In the absence of unequivocal hyperglycemia, results should be confirmed by repeat testing. The classification and Diagnosis of Diabetes Diabetes Care 2021; 46: S19-S40. Current interpretive data was last revised 2022. Calcium 8.4(L) 8.5 - 10.3 mg/dL [facility] Blood 10/24/2024 9:31 PM CDT 10/24/2024 10:58 PM CDT us Camille Garcia NP LAB BLOOD ORDERABLES Final Resul t [facility] [place] [address] * eGFR (10/23/2024 8:14 PM CDT) eGFR >90 >=60 mL/min/1. 73 m2 Comment: Interpretive Data Reference Interval Normal >/= 90 mL/min/1.73m2 Mildly decreased* 60 - 89 mL/min/1.73m2 Mildly to moderately decreased 45 - 59 mL/min/1.73m2 Moderately to severely decreased 30 - 44 mL/min/1.73m2 Severely decreased 15 - 29 mL/min/1.73m2 Kidney Failure < 15 mL/min/1.73m2 *Relative to young adult level Estimated glomerular filtration rate is determined by the 2020 CKD-EPI equation recommended by the National Kidney Foundation (A Unifying Approach to GFR Estimation: Recommendations of the NKF-ASK Task Force on Reassessing the Inclusion of Race in Diagnosing Kidney Disease, JASN 2020). The CKD-EPI equation should not be used for patients with unstable renal function and has not been validated in children and those over 70. Current interpretive data was last reviewed 2021. Blood 10/23/2024 8:14 PM CDT 10/23/2024 9:00 PM CDT us Camille Garcia NP LAB BLOOD ORDERABLES Final Resul t Performing Organization Address City/[facility]/ZIP Co de Phone Number [facility] Department [place] [address] * (ABNORMAL) CBC without differential (10/23/2024 8:14 PM CDT) WBC 6.9 3.8 - 9.9 K/cumm Hgb 9.1(L) 11.9 - 15.5 g/dL [facility] Hct 28.6(L) 35.6 - 45.5 % [facility] Plt 292 150 - 400 K/cumm [facility] MPV 10.3 9.1 - 12.3 fL [facility] RBC 3.56(L) 3.90 - 5.20 M/cumm [facility] MCV 80.3(L) 81.3 - 96.4 fL [facility] MCH 25.6(L) 27.1 - 33.3 pg [facility] MCHC 31.8(L) 32.3 - 35.7 g/dL [facility] RDW CV 13.8 11.1 - 14.9 % [facility] RDW SD 40.4 35.7 - 48.1 fL [facility] NRBC abs 0.00 0.00 - 0.01 K/cumm [facility] Blood 10/23/2024 8:14 PM CDT 10/23/2024 9:01 PM CDT us Camille Garcia NP LAB BLOOD ORDERABLES Final Resul t [facility] Department [place] [address] * (ABNORMAL) Basic metabolic panel (10/23/2024 8:14 PM CDT) Pathologist [facility] Sodium 144 135 - 145 mmol/L Potassium, pl 3.0(L) 3.3 - 4.9 mmol/L [facility] Chloride 108 97 - 110 mmol/L [facility] CO2 27 22 - 32 mmol/L [facility] Anion gap 9 2 - 15 mmol/L [facility] BUN 8 6 - 25 mg/dL [facility] Creatinine 0.44(L) 0.60 - 1.10 mg/dL [facility] Glucose 134 70 - 199 mg/dL [facility] Comment: Interpretive Data Fasting glucose >/= 126 mg/dl is diagnostic for diabetes. Fasting is defined as no caloric intake for at least 8 hours. Fasting glucose between 100 mg/dl to 125 mg/dl is diagnostic of prediabetes. In a patient with classic symptoms of hyperglycemia or hyperglycemic crisis, a random glucose >/= 200 mg/dl is diagnostic for diabetes. In the absence of unequivocal hyperglycemia, results should be confirmed by repeat testing. The classification and Diagnosis of Diabetes Diabetes Care 2021; 46: S19-S40. Current interpretive data was last revised 2022. Calcium 8.6 8.5 - 10.3 mg/dL [facility] Blood 10/23/2024 8:14 PM CDT 10/23/2024 9:00 PM CDT us Camille Garcia PATIENT SCHEDULING MANAGER LAB BLOOD ORDERABLES Final Resul t [facility] [place] [address] * (ABNORMAL) Protime-INR (10/22/2024 8:30 PM CDT) Pathologist [facility] PT 13.8(H) 9.7 - 13.0 sec INR 1.27(H) 0.90 - 1.20 [facility] Comment: Interpretive data Oral anticoagulant therapeutic ranges: Venous thromboembolism prophylaxis or treatment: 2.0-3.0 CARDIOLOGY Standard range: 2.0-3.0 High-intensity range: 2.5-3.5 Refer to indication-specific guidelines for appropriate target ranges for prosthetic heart valve replacement. Current interpretive data was last revised on 2019. Blood 10/22/2024 8:30 PM CDT 10/22/2024 8:58 PM CDT us Camille Garcia PATIENT SCHEDULING MANAGER LAB BLOOD ORDERABLES Final Resul t Performing Organization Address City/[facility] Co de Phone Number [facility] [place] [address] * (ABNORMAL) CBC without differential (10/22/2024 8:30 PM CDT) WBC 7.4 3.8 - 9.9 K/cumm Hgb 9.4(L) 11.9 - 15.5 g/dL [facility] Hct 30.0(L) 35.6 - 45.5 % [facility] Plt 323 150 - 400 K/cumm [facility] MPV 10.4 9.1 - 12.3 fL [facility] RBC 3.66(L) 3.90 - 5.20 M/cumm [facility] MCV 82.0 81.3 - 96.4 fL [facility] MCH 25.7(L) 27.1 - 33.3 pg [facility] MCHC 31.3(L) 32.3 - 35.7 g/dL [facility] RDW CV 13.6 11.1 - 14.9 % [facility] RDW SD 40.9 35.7 - 48.1 fL [facility] NRBC abs 0.00 0.00 - 0.01 K/cumm [facility] Blood 10/22/2024 8:30 PM CDT 10/22/2024 8:50 PM CDT us Camille Garcia NP LAB BLOOD ORDERABLES Final Resul t [facility] [place] [address] * US RUQ (10/22/2024 9:40 AM CDT) Anatomical Region Laterality Modality Abdomen N/A Ultrasound 10/22/2024 10:4 5 AM CDT Impressions 10/22/2024 10:45 AM CDT 1. Abdominal wall/subcutaneous fluid collection about the prior cholecystostomy site suboptimally assessed. 2. Possible trace fluid collection adjacent to the gallbladder fundus versus artifact secondary to gallbladder stones. 3. Decompressed gallbladder with extensive cholelithiasis Electronically signed by: Alcides Braun M.D. Narrative 10/22/2024 10:45 AM CDT EXAMINATION: LIMITED ABDOMINAL SONOGRAM HISTORY: Right upper quadrant abdominal wall fluid collection COMPARISON: No prior sonographic imaging. Correlation with CT abdomen pelvis 10/19/2024 FINDINGS: Liver: The liver is normal in size. The echotexture is normal. The echogenicity is normal. There is no surface nodularity. No focal solid lesions are visualized. Gallbladder: The gallbladder is decompressed and suboptimally visualized secondary to large intraluminal stones. Scattered foci of air are present within the gallbladder. Bile Duct: There is no intrahepatic bile duct dilatation. The diameter of the common duct is 3 mm in the proximal segment and 4 mm in the mid segment. Right Kidney: There is no hydronephrosis in the visualized portions of the right kidney. Pancreas: The visualized portions of the pancreas demonstrate no focal lesions. Incompletely visualized fluid collection anterior to the gallbladder about the site of prior cholecystostomy tubing, presently measuring 2.4 x 0.9 x 1.1 cm with fluid and air. Abdominal wall/subcutaneous fluid and air collection suboptimally assessed on this examination with fluid noted dissecting along the abdominal wall anterior to the gallbladder (series [id number]). Procedure Note Alcides Braun II, MD - 10/22/2024 EXAMINATION: LIMITED ABDOMINAL SONOGRAM HISTORY: Right upper quadrant abdominal wall fluid collection COMPARISON: No prior sonographic imaging. Correlation with CT abdomen pelvis 10/19/2024 FINDINGS: Liver: The liver is normal in size. The echotexture is normal. The echogenicity is normal. There is no surface nodularity. No focal solid lesions are visualized. Gallbladder: The gallbladder is decompressed and suboptimally visualized secondary to large intraluminal stones. Scattered foci of air are present within the gallbladder. Bile Duct: There is no intrahepatic bile duct dilatation. The diameter of the common duct is 3 mm in the proximal segment and 4 mm in the mid segment. Right Kidney: There is no hydronephrosis in the visualized portions of the right kidney. Pancreas: The visualized portions of the pancreas demonstrate no focal lesions. Incompletely visualized fluid collection anterior to the gallbladder about the site of prior cholecystostomy tubing, presently measuring 2.4 x 0.9 x 1.1 cm with fluid and air. Abdominal wall/subcutaneous fluid and air collection suboptimally assessed on this examination with fluid noted dissecting along the abdominal wall anterior to the gallbladder (series [id number]). IMPRESSION: 1. Abdominal wall/subcutaneous fluid collection about the prior cholecystostomy site suboptimally assessed. 2. Possible trace fluid collection adjacent to the gallbladder fundus versus artifact secondary to gallbladder stones. 3. Decompressed gallbladder with extensive cholelithiasis Electronically signed by: Alcides Braun M.D. us Lyndsay Solares MD IMG US PROCEDURES Final Resu lt * eGFR (10/22/2024 9:00 AM CDT) eGFR >90 >=60 mL/min/1. 73 m2 Comment: Interpretive Data Reference Interval Normal >/= 90 mL/min/1.73m2 Mildly decreased* 60 - 89 mL/min/1.73m2 Mildly to moderately decreased 45 - 59 mL/min/1.73m2 Moderately to severely decreased 30 - 44 mL/min/1.73m2 Severely decreased 15 - 29 mL/min/1.73m2 Kidney Failure < 15 mL/min/1.73m2 *Relative to young adult level Estimated glomerular filtration rate is determined by the 2020 CKD-EPI equation recommended by the National Kidney Foundation (A Unifying Approach to GFR Estimation: Recommendations of the NKF-ASK Task Force on Reassessing the Inclusion of Race in Diagnosing Kidney Disease, JASN 2020). The CKD-EPI equation should not be used for patients with unstable renal function and has not been validated in children and those over 70. Current interpretive data was last reviewed 2021. Blood 10/22/2024 9:00 AM CDT 10/22/2024 9:22 AM CDT us Camille Garcia PATIENT SCHEDULING MANAGER LAB BLOOD ORDERABLES Final Resul t Performing Organization Address [facility] Co de Phone Number [facility] [place] [address] * (ABNORMAL) CBC without differential (10/22/2024 9:00 AM CDT) WBC 4.7 3.8 - 9.9 K/cumm Hgb 9.4(L) 11.9 - 15.5 g/dL [facility] Hct 29.0(L) 35.6 - 45.5 % [facility] Plt 302 150 - 400 K/cumm [facility] MPV 10.3 9.1 - 12.3 fL [facility] RBC 3.64(L) 3.90 - 5.20 M/cumm [facility] MCV 79.7(L) 81.3 - 96.4 fL [facility] MCH 25.8(L) 27.1 - 33.3 pg [facility] MCHC 32.4 32.3 - 35.7 g/dL [facility] RDW CV 13.6 11.1 - 14.9 % [facility] RDW SD 39.3 35.7 - 48.1 fL [facility] NRBC abs 0.00 0.00 - 0.01 K/cumm [facility] Blood 10/22/2024 9:00 AM CDT 10/22/2024 9:22 AM CDT us Camille Garcia PATIENT SCHEDULING MANAGER LAB BLOOD ORDERABLES Final Resul t Performing Organization Address City/[facility]/ZIP Co de Phone Number [facility] [place] [address] * Phosphorus (10/22/2024 9:00 AM CDT) Pathologist [facility] Phosphorus, pl 2.9 2.3 - 4.5 mg/dL Blood 10/22/2024 9:00 AM CDT 10/22/2024 9:22 AM CDT us Camille Garcia PATIENT SCHEDULING MANAGER LAB BLOOD ORDERABLES Final Resul t Performing Organization Address [facility] Co de Phone Number [facility] [place] [address] * Magnesium (10/22/2024 9:00 AM CDT) Pathologist [facility] Magnesium 1.8 1.4 - 2.5 mg/dL Blood 10/22/2024 9:00 AM CDT 10/22/2024 9:22 AM CDT us Camille Garcia NP LAB BLOOD ORDERABLES Final Resul t Performing Organization Address [facility] Phone Number [facility] [place] [address] * (ABNORMAL) Basic metabolic panel (10/22/2024 9:00 AM CDT) Pathologist [facility] Sodium 144 135 - 145 mmol/L Potassium, pl 3.6 3.3 - 4.9 mmol/L [facility] Chloride 109 97 - 110 mmol/L [facility] CO2 22 22 - 32 mmol/L [facility] Anion gap 13 2 - 15 mmol/L [facility] BUN 15 6 - 25 mg/dL [facility] Creatinine 0.44(L) 0.60 - 1.10 mg/dL [facility] Glucose 80 70 - 199 mg/dL [facility] Comment: Interpretive Data Fasting glucose >/= 126 mg/dl is diagnostic for diabetes. Fasting is defined as no caloric intake for at least 8 hours. Fasting glucose between 100 mg/dl to 125 mg/dl is diagnostic of prediabetes. In a patient with classic symptoms of hyperglycemia or hyperglycemic crisis, a random glucose >/= 200 mg/dl is diagnostic for diabetes. In the absence of unequivocal hyperglycemia, results should be confirmed by repeat testing. The classification and Diagnosis of Diabetes Diabetes Care 2021; 46: S19-S40. Current interpretive data was last revised 2022. Calcium 8.7 8.5 - 10.3 mg/dL [facility] Blood 10/22/2024 9:00 AM CDT 10/22/2024 9:22 AM CDT us Camille Garcia NP LAB BLOOD ORDERABLES Final Resul t [facility] [place] [address] * Blood culture Blood Blood (10/20/2024 11:30 PM CDT) Report Final Report: No growth Blood (Blood) 10/20/2024 11: 30 PM CDT 10/21/2024 3:14 AM CDT Narrative [facility] - 10/25/2024 7:00 AM CDT Collection->Peripheral 1. Blood cultures are incubated for 4 days on a continuously monitored blood culture system. The first report of a negative culture is issued within 24 hours of receipt of the specimen in the laboratory. 2. Positive culture results are reported as soon as they are detected. 3. The most important factor for detection of microbes in the setting of bloodstream infection is the volume of blood submitted for culture. Failure to collect an optimal blood volume can result in false negative blood cultures. 4. For pediatric patients, the recommended blood volume to collect follows a weight based strategy. See the electronic test catalog for collection instructions. 5. For positive blood cultures, a rapid molecular test may be performed for organism identification using the kavitha ePlex blood culture identification panel for gram positive (BCID-GP) and gram negative (BCID-GN) organisms. This nucleic acid amplification test detects microbial DNA in positive blood culture broth. This assay has been cleared by the [place] Food and Drug Administration and its performance characteristics have been verified by the [facility] Microbiology Laboratory. For questions about this culture, contact the Microbiology Laboratory at [phone]. Interpretive data was last revised on 24. us Lyndsay Solares MD LAB MICROBIOLOGY - GENERAL O RDERABLES Final Result Performing Organization Address City/[facility]/ZIP Co de Phone Number [facility] [place] [address] * Blood culture Blood Blood (10/20/2024 11:19 PM CDT) Report Final Report: No growth Blood (Blood) 10/20/2024 11: 19 PM CDT 10/21/2024 3:14 AM CDT Narrative [facility] - 10/25/2024 7:00 AM CDT Collection->Peripheral 1. Blood cultures are incubated for 4 days on a continuously monitored blood culture system. The first report of a negative culture is issued within 24 hours of receipt of the specimen in the laboratory. 2. Positive culture results are reported as soon as they are detected. 3. The most important factor for detection of microbes in the setting of bloodstream infection is the volume of blood submitted for culture. Failure to collect an optimal blood volume can result in false negative blood cultures. 4. For pediatric patients, the recommended blood volume to collect follows a weight based strategy. See the electronic test catalog for collection instructions. 5. For positive blood cultures, a rapid molecular test may be performed for organism identification using the [employer]ith[employer] ePlex blood culture identification panel for gram positive (BCID-GP) and gram negative (BCID-GN) organisms. This nucleic acid amplification test detects microbial DNA in positive blood culture broth. This assay has been cleared by the [place] Food and Drug Administration and its performance characteristics have been verified by the [facility] Microbiology Laboratory. For questions about this culture, contact the Microbiology Laboratory at [phone]. Interpretive data was last revised on 24. Lyndsay Solares MD LAB MICROBIOLOGY - GENERAL O RDERABLES Final Result Performing Organization Address City/[facility]/ZIP Co de Phone Number [facility] [place] [address] * FL Upper GI Series, Single Contrast (10/20/2024 2:56 PM CDT) Anatomical Region Laterality Modality Body N/A Radio Fluoroscop y 10/20/2024 3:03 PM CDT Impressions 10/20/2024 4:46 PM CDT No cholecystogastric fistula. Dictated by: Ayo Draper MD The radiology attending physician has personally reviewed this study, and had reviewed and/or edited this written report and agrees with it. Electronically signed by: George Price M.D. Narrative 10/20/2024 4:46 PM CDT EXAMINATION: UPPER GASTROINTESTINAL EXAMINATION HISTORY: Status post cholecystostomy. Concern for cholecysto gastric fistula on recent CT dated 10/19/2024. TECHNIQUE: After a sewer and drain technician radiograph was obtained, the patient's existing percutaneous gastrostomy tube was injected with water-soluble contrast, and multiple fluoroscopic and conventional overhead radiographs of the stomach and duodenum were obtained. FINDINGS: Percutaneous gastrostomy tube balloon is within the gastric antrum. Contrast passes easily into the stomach, which shows a normal rugal fold pattern. There is a small amount of gastroesophageal reflux. There is a small hiatal hernia. The duodenum is normal in course and caliber, with a normal mucosal fold pattern. Procedure Note George Price MD - 10/20/2024 EXAMINATION: UPPER GASTROINTESTINAL EXAMINATION HISTORY: Status post cholecystostomy. Concern for cholecysto gastric fistula on recent CT dated 10/19/2024. TECHNIQUE: After a sewer and drain technician radiograph was obtained, the patient's existing percutaneous gastrostomy tube was injected with water-soluble contrast, and multiple fluoroscopic and conventional overhead radiographs of the stomach and duodenum were obtained. FINDINGS: Percutaneous gastrostomy tube balloon is within the gastric antrum. Contrast passes easily into the stomach, which shows a normal rugal fold pattern. There is a small amount of gastroesophageal reflux. There is a small hiatal hernia. The duodenum is normal in course and caliber, with a normal mucosal fold pattern. IMPRESSION: No cholecystogastric fistula. Dictated by: Ayo Draper MD The radiology attending physician has personally reviewed this study, and had reviewed and/or edited this written report and agrees with it. Electronically signed by: George Price M.D. Alcides Blair MD IMG FLUOROSCOPY PROCEDURE S Final Result * XR Abdomen Ap 1 Vw (10/20/2024 1:55 PM CDT) Anatomical Region Laterality Modality Body, Abdomen N/A Computed Radiogr aphy 10/20/2024 2:46 PM CDT Impressions 10/23/2024 2:01 PM CDT 2 radiographs of the abdomen were obtained following injection of oral contrast through the percutaneous gastric tube. Percutaneous gastric tube tip projects over the stomach. There is oral contrast seen throughout the stomach and proximal small bowel. There is no evidence of an enterobiliary fistula. Dictated by: Walt Castañeda M.D. The radiology attending physician has personally reviewed this study, and had reviewed and/or edited this written report and agrees with it. Electronically signed by: Kwabena Collins M.D. Narrative 10/23/2024 2:01 PM CDT EXAMINATION: Abdomen, one view. HISTORY: 64-year-old with concern for entero-biliary fistula COMPARISON: Correlation is made with CT of 10/19/2024. Procedure Note Kwabena Collins MD - 10/23/2024 EXAMINATION: Abdomen, one view. HISTORY: 64-year-old with concern for entero-biliary fistula COMPARISON: Correlation is made with CT of 10/19/2024. IMPRESSION: 2 radiographs of the abdomen were obtained following injection of oral contrast through the percutaneous gastric tube. Percutaneous gastric tube tip projects over the stomach. There is oral contrast seen throughout the stomach and proximal small bowel. There is no evidence of an enterobiliary fistula. Dictated by: Walt Castañeda M.D. The radiology attending physician has personally reviewed this study, and had reviewed and/or edited this written report and agrees with it. Electronically signed by: Kwabena Collins M.D. Rudolph Spears MD IMG XR PROCEDURES Final Result * eGFR (10/20/2024 4:07 AM CDT) eGFR >90 >=60 mL/min/1. 73 m2 Comment: Interpretive Data Reference Interval Normal >/= 90 mL/min/1.73m2 Mildly decreased* 60 - 89 mL/min/1.73m2 Mildly to moderately decreased 45 - 59 mL/min/1.73m2 Moderately to severely decreased 30 - 44 mL/min/1.73m2 Severely decreased 15 - 29 mL/min/1.73m2 Kidney Failure < 15 mL/min/1.73m2 *Relative to young adult level Estimated glomerular filtration rate is determined by the 2020 CKD-EPI equation recommended by the National Kidney Foundation (A Unifying Approach to GFR Estimation: Recommendations of the NKF-ASK Task Force on Reassessing the Inclusion of Race in Diagnosing Kidney Disease, JASN 2020). The CKD-EPI equation should not be used for patients with unstable renal function and has not been validated in children and those over 70. Current interpretive data was last reviewed 2021. Blood 10/20/2024 4:07 AM CDT 10/20/2024 4:21 AM CDT us Alcides Blair MD LAB BLOOD ORDERABLES Emily majano Result [facility] [place] [address] * Differential, auto (10/20/2024 4:07 AM CDT) Pathologist [facility] Neutrophil abs 3.7 1.5 - 6.5 K/cumm Imm gran abs 0.0 0.0 - 0.1 K/cumm [facility] Lymphocyte abs 1.5 0.8 - 3.3 K/cumm [facility] Monocyte abs 0.5 0.2 - 0.8 K/cumm [facility] Eosinophil abs 0.2 0.0 - 0.5 K/cumm [facility] Basophil abs 0.0 0.0 - 0.1 K/cumm [facility] Neutrophil pct 62.3 % [facility] Comment: Interpretive Data Percent cell count reference ranges are not reported, since discordance with absolute values may lead to misinterpretation of CBC data. Current Interpretive Data was last revised on 2017. Imm gran pct 0.3 % [facility] Comment: Interpretive Data Percent cell count reference ranges are not reported, since discordance with absolute values may lead to misinterpretation of CBC data. Current Interpretive Data was last revised on 2017. Lymphocyte pct 26.0 % [facility] Comment: Interpretive Data Percent cell count reference ranges are not reported, since discordance with absolute values may lead to misinterpretation of CBC data. Current Interpretive Data was last revised on 2017. Monocyte pct 8.0 % [facility] Comment: Interpretive Data Percent cell count reference ranges are not reported, since discordance with absolute values may lead to misinterpretation of CBC data. Current Interpretive Data was last revised on 2017. Eosinophil pct 2.9 % [facility] Comment: Interpretive Data Percent cell count reference ranges are not reported, since discordance with absolute values may lead to misinterpretation of CBC data. Current Interpretive Data was last revised on 2017. Basophil pct 0.5 % [facility] Comment: Interpretive Data Percent cell count reference ranges are not reported, since discordance with absolute values may lead to misinterpretation of CBC data. Current Interpretive Data was last revised on 2017. Blood 10/20/2024 4:07 AM CDT 10/20/2024 4:21 AM CDT us Alcides Blair MD LAB BLOOD ORDERABLES Emily majano Result Performing Organization Address City/State/[facility] Co de Phone Number [facility] [place] [address] * (ABNORMAL) CBC with auto differential (10/20/2024 4:07 AM CDT) WBC 5.9 3.8 - 9.9 K/cumm Hgb 10.9(L) 11.9 - 15.5 g/dL [facility] Hct 34.4(L) 35.6 - 45.5 % [facility] Plt 337 150 - 400 K/cumm [facility] MPV 10.3 9.1 - 12.3 fL [facility] RBC 4.30 3.90 - 5.20 M/cumm [facility] MCV 80.0(L) 81.3 - 96.4 fL [facility] MCH 25.3(L) 27.1 - 33.3 pg [facility] MCHC 31.7(L) 32.3 - 35.7 g/dL [facility] RDW CV 13.9 11.1 - 14.9 % [facility] RDW SD 39.8 35.7 - 48.1 fL [facility] NRBC abs 0.00 0.00 - 0.01 K/cumm [facility] Blood 10/20/2024 4:07 AM CDT 10/20/2024 4:21 AM CDT Alcides Blair MD LAB BLOOD ORDERABLES Emily l Result Performing Organization Address [facility] Co de Phone Number [facility] [place] [address] * (ABNORMAL) Erythrocyte sedimentation rate (10/20/2024 4:07 AM CDT) Erythrocyte sedimentation rate 58(H) 1 - 30 mm/hr Blood 10/20/2024 4:07 AM CDT 10/20/2024 4:20 AM CDT Alcides Blair MD LAB BLOOD ORDERABLES Emily l Result Performing Organization Address City/[facility] Co de Phone Number [facility] [place] [address] * Protime-INR (10/20/2024 4:07 AM CDT) PT 12.5 9.7 - 13.0 sec INR 1.15 0.90 - 1.20 [facility] Comment: Interpretive data Oral anticoagulant therapeutic ranges: Venous thromboembolism prophylaxis or treatment: 2.0-3.0 CARDIOLOGY Standard range: 2.0-3.0 High-intensity range: 2.5-3.5 Refer to indication-specific guidelines for appropriate target ranges for prosthetic heart valve replacement. Current interpretive data was last revised on 2019. Blood 10/20/2024 4:07 AM CDT 10/20/2024 4:28 AM CDT Alcides Blair MD LAB BLOOD ORDERABLES Emily l Result Performing Organization Address City/[facility]/ZIP Co de Phone Number [facility] [place] [address] * (ABNORMAL) CRP (acute phase) (10/20/2024 4:07 AM CDT) CRP 47.0(H) <=10.0 mg/L Blood 10/20/2024 4:07 AM CDT 10/20/2024 4:20 AM CDT Alcides Blair MD LAB BLOOD ORDERABLES Emily l Result Performing Organization Address City/[facility] Co de Phone Number [facility] [place] [address] * Phosphorus (10/20/2024 4:07 AM CDT) Phosphorus, pl 4.3 2.3 - 4.5 mg/dL Blood 10/20/2024 4:07 AM CDT 10/20/2024 4:21 AM CDT Alcides Blair MD LAB BLOOD ORDERABLES Emily l Result Performing Organization Address City/[facility] Co de Phone Number [facility] [place] [address] * Magnesium (10/20/2024 4:07 AM CDT) Magnesium 1.9 1.4 - 2.5 mg/dL Blood 10/20/2024 4:0 7 AM CDT 10/20/2024 4:21 AM CDT Alcides Blair MD LAB BLOOD ORDERABLES Emily majano Result Performing Organization Address City/[facility]/ZIP Co de Phone Number [facility] [place] [address] * (ABNORMAL) Basic metabolic panel (10/20/2024 4:07 AM CDT) Pathologist [facility] Sodium 141 135 - 145 mmol/L Potassium, pl 3.9 3.3 - 4.9 mmol/L [facility] Chloride 104 97 - 110 mmol/L [facility] CO2 26 22 - 32 mmol/L [facility] Anion gap 11 2 - 15 mmol/L [facility] BUN 13 6 - 25 mg/dL [facility] Creatinine 0.48(L) 0.60 - 1.10 mg/dL [facility] Glucose 87 70 - 199 mg/dL [facility] Comment: Interpretive Data Fasting glucose >/= 126 mg/dl is diagnostic for diabetes. Fasting is defined as no caloric intake for at least 8 hours. Fasting glucose between 100 mg/dl to 125 mg/dl is diagnostic of prediabetes. In a patient with classic symptoms of hyperglycemia or hyperglycemic crisis, a random glucose >/= 200 mg/dl is diagnostic for diabetes. In the absence of unequivocal hyperglycemia, results should be confirmed by repeat testing. The classification and Diagnosis of Diabetes Diabetes Care 2021; 46: S19-S40. Current interpretive data was last revised 2022. Calcium 9.4 8.5 - 10.3 mg/dL [facility] Blood 10/20/2024 4:07 AM CDT 10/20/2024 4:21 AM CDT Alcides Blair MD LAB BLOOD ORDERABLES Emily l Result Performing Organization Address [facility] Co de Phone Number [facility] [place] [address] * CT Abdomen Pelvis W Contrast (10/19/2024 4:16 PM CDT) Anatomical Region Laterality Modality Body N/A Computed Tomogra phy 10/19/2024 4:49 PM CDT Impressions 10/19/2024 4:53 PM CDT 1. 5 cm fluid and gas collection in the right anterolateral abdominal wall at the prior site of the cholecystostomy. 2. Decompressed gallbladder with cholelithiasis. There are locules of gas, which are favored to be due to the prior cholecystostomy and the gas and fluid collection mentioned above. However, given the proximity of the gallbladder neck to the peripyloric region, a cholecystogastric fistula is also a consideration, though no definite tract is seen. If there is clinical concern, an upper GI series exam could be pursued to evaluate for a fistulous connection. Dictated by: Walt Castañeda M.D. The radiology attending physician has personally reviewed this study, and had reviewed and/or edited this written report and agrees with it. Electronically signed by: Annika Frederick M.D. Narrative 10/19/2024 4:53 PM CDT EXAMINATION: Computed tomography of the abdomen and pelvis with intravenous contrast HISTORY: 64-year-old with concern for cholecystostomy site leak TECHNIQUE: Transaxial computed tomographic images of the abdomen and pelvis were obtained with intravenous contrast according to the standard protocol after the uneventful administration of 69 mL Opti-Ray 350 intravenous contrast. COMPARISON: CT 01/25/2021 FINDINGS: The imaged lung bases demonstrate mild right basilar atelectasis. No suspicious pulmonary nodule. Calcified granuloma of the right lung base. The imaged heart size is normal with no pericardial effusion. An ill-defined hyperattenuating lesion in hepatic segment 5 (series 3, image 64) may represent a flash filling hemangioma. No intrahepatic or extrahepatic biliary ductal dilatation. The gallbladder is decompressed and filled with gallstones with locules of gas. The spleen, adrenal glands, and pancreas are normal. There is a fluid and gas collection in the right anterolateral abdominal wall at the prior site of the cholecystostomy tube, measuring up to 5.0 cm (series 3, image 82). There is a tract that communicates with the overlying skin defect. There is significant surrounding soft tissue stranding that extends through the abdominal wall. The kidneys enhance symmetrically with no hydronephrosis or nephrolithiasis. The urinary bladder is distended and filled with contrast. Fibroid uterus with no adnexal mass. Scattered colonic diverticulosis with no evidence of diverticulitis. The small and large bowel are normal in caliber without evidence of obstruction. There is a large amount of stool within the rectum. Percutaneous gastrostomy tube is positioned within the stomach. No abdominal or pelvic lymphadenopathy. No intraperitoneal free air or free fluid. The abdominal aorta is normal in caliber with moderate calcified atherosclerosis. Old healed right rib fractures. No suspicious osseous lesion. Procedure Note YolyAnnika gregg MD - 10/19/2024 EXAMINATION: Computed tomography of the abdomen and pelvis with intravenous contrast HISTORY: 64-year-old with concern for cholecystostomy site leak TECHNIQUE: Transaxial computed tomographic images of the abdomen and pelvis were obtained with intravenous contrast according to the standard protocol after the uneventful administration of 69 mL Opti-Ray 350 intravenous contrast. COMPARISON: CT 01/25/2021 FINDINGS: The imaged lung bases demonstrate mild right basilar atelectasis. No suspicious pulmonary nodule. Calcified granuloma of the right lung base. The imaged heart size is normal with no pericardial effusion. An ill-defined hyperattenuating lesion in hepatic segment 5 (series 3, image 64) may represent a flash filling hemangioma. No intrahepatic or extrahepatic biliary ductal dilatation. The gallbladder is decompressed and filled with gallstones with locules of gas. The spleen, adrenal glands, and pancreas are normal. There is a fluid and gas collection in the right anterolateral abdominal wall at the prior site of the cholecystostomy tube, measuring up to 5.0 cm (series 3, image 82). There is a tract that communicates with the overlying skin defect. There is significant surrounding soft tissue stranding that extends through the abdominal wall. The kidneys enhance symmetrically with no hydronephrosis or nephrolithiasis. The urinary bladder is distended and filled with contrast. Fibroid uterus with no adnexal mass. Scattered colonic diverticulosis with no evidence of diverticulitis. The small and large bowel are normal in caliber without evidence of obstruction. There is a large amount of stool within the rectum. Percutaneous gastrostomy tube is positioned within the stomach. No abdominal or pelvic lymphadenopathy. No intraperitoneal free air or free fluid. The abdominal aorta is normal in caliber with moderate calcified atherosclerosis. Old healed right rib fractures. No suspicious osseous lesion. IMPRESSION: 1. 5 cm fluid and gas collection in the right anterolateral abdominal wall at the prior site of the cholecystostomy. 2. Decompressed gallbladder with cholelithiasis. There are locules of gas, which are favored to be due to the prior cholecystostomy and the gas and fluid collection mentioned above. However, given the proximity of the gallbladder neck to the peripyloric region, a cholecystogastric fistula is also a consideration, though no definite tract is seen. If there is clinical concern, an upper GI series exam could be pursued to evaluate for a fistulous connection. Dictated by: Walt Castañeda M.D. The radiology attending physician has personally reviewed this study, and had reviewed and/or edited this written report and agrees with it. Electronically signed by: Annika Frederick M.D. Giuliana Hou MD IMG CT PROCEDURES Fin al Result * (ABNORMAL) POCT creatinine (10/19/2024 2:23 PM CDT) Creatinine POC 0.5(L) 0.6 - 1.1 mg/dL Blood 10/19/2024 2:23 PM CDT 10/19/2024 2:23 PM CDT Timi Wilcox MD LAB POCT ORDERABLES - DEV ICE Final Result Performing Organization Address [facility] Co de Phone Number [facility] [place] [address] * POCT lactate (10/19/2024 2:14 PM CDT) Lactate POC i-STAT 1.8 0.7 - 2.0 mmol/L Blood 10/19/2024 2:14 PM CDT 10/19/2024 2:14 PM CDT Timi Wilcox MD LAB POCT ORDERABLES - DEV ICE Final Result Performing Organization Address [facility] Co de Phone Number [facility] [place] [address] * eGFR (10/19/2024 2:07 PM CDT) eGFR >90 >=60 mL/min/1. 73 m2 Comment: Interpretive Data Reference Interval Normal >/= 90 mL/min/1.73m2 Mildly decreased* 60 - 89 mL/min/1.73m2 Mildly to moderately decreased 45 - 59 mL/min/1.73m2 Moderately to severely decreased 30 - 44 mL/min/1.73m2 Severely decreased 15 - 29 mL/min/1.73m2 Kidney Failure < 15 mL/min/1.73m2 *Relative to young adult level Estimated glomerular filtration rate is determined by the 2020 CKD-EPI equation recommended by the National Kidney Foundation (A Unifying Approach to GFR Estimation: Recommendations of the NKF-ASK Task Force on Reassessing the Inclusion of Race in Diagnosing Kidney Disease, JASN 2020). The CKD-EPI equation should not be used for patients with unstable renal function and has not been validated in children and those over 70. Current interpretive data was last reviewed 2021. Blood 10/19/2024 2:07 PM CDT 10/19/2024 2:22 PM CDT Giuliana Gaurav Hou MD LAB BLOOD ORDERABLES Final Result [facility] [place] [address] * Differential, auto (10/19/2024 2:07 PM CDT) Pathologist [facility] Neutrophil abs 3.3 1.5 - 6.5 K/cumm Imm gran abs 0.0 0.0 - 0.1 K/cumm [facility] Lymphocyte abs 2.3 0.8 - 3.3 K/cumm [facility] Monocyte abs 0.8 0.2 - 0.8 K/cumm [facility] Eosinophil abs 0.2 0.0 - 0.5 K/cumm [facility] Basophil abs 0.0 0.0 - 0.1 K/cumm [facility] Neutrophil pct 49.9 % [facility] Comment: Interpretive Data Percent cell count reference ranges are not reported, since discordance with absolute values may lead to misinterpretation of CBC data. Current Interpretive Data was last revised on 2017. Imm gran pct 0.3 % [facility] Comment: Interpretive Data Percent cell count reference ranges are not reported, since discordance with absolute values may lead to misinterpretation of CBC data. Current Interpretive Data was last revised on 2017. Lymphocyte pct 34.6 % [facility] Comment: Interpretive Data Percent cell count reference ranges are not reported, since discordance with absolute values may lead to misinterpretation of CBC data. Current Interpretive Data was last revised on 2017. Monocyte pct 12.1 % [facility] Comment: Interpretive Data Percent cell count reference ranges are not reported, since discordance with absolute values may lead to misinterpretation of CBC data. Current Interpretive Data was last revised on 2017. Eosinophil pct 2.7 % [facility] Comment: Interpretive Data Percent cell count reference ranges are not reported, since discordance with absolute values may lead to misinterpretation of CBC data. Current Interpretive Data was last revised on 2017. Basophil pct 0.4 % [facility] Comment: Interpretive Data Percent cell count reference ranges are not reported, since discordance with absolute values may lead to misinterpretation of CBC data. Current Interpretive Data was last revised on 2017. Blood 10/19/2024 2:07 PM CDT 10/19/2024 2:22 PM CDT Giuliana Hou MD LAB BLOOD ORDERABLES Final Result [facility] Department [place] [address] * (ABNORMAL) CBC with auto differential (10/19/2024 2:07 PM CDT) WBC 6.7 3.8 - 9.9 K/cumm Hgb 10.4(L) 11.9 - 15.5 g/dL [facility] Hct 32.0(L) 35.6 - 45.5 % [facility] Plt 334 150 - 400 K/cumm [facility] MPV 11.0 9.1 - 12.3 fL [facility] RBC 4.00 3.90 - 5.20 M/cumm [facility] MCV 80.0(L) 81.3 - 96.4 fL [facility] MCH 26.0(L) 27.1 - 33.3 pg [facility] MCHC 32.5 32.3 - 35.7 g/dL [facility] RDW CV 14.1 11.1 - 14.9 % [facility] RDW SD 41.1 35.7 - 48.1 fL [facility] NRBC abs 0.00 0.00 - 0.01 K/cumm [facility] Blood 10/19/2024 2:07 PM CDT 10/19/2024 2:22 PM CDT [facility] LAB BLOOD ORDERABLES Final Result Performing Organization Address [facility]/ZIP Co de Phone Number [facility] [place] [address] * Lipase (10/19/2024 2:07 PM CDT) [facility] Lipase 26 10 - 99 Units/L Blood 10/19/2024 2:07 PM CDT 10/19/2024 2:22 PM CDT [facility] MD LAB BLOOD ORDERABLES Final Result [facility] [place] [address] * (ABNORMAL) Comprehensive metabolic panel (10/19/2024 2:07 PM CDT) [facility] Sodium 136 135 - 145 mmol/L Potassium, pl 4.3 3.3 - 4.9 mmol/L [facility] Chloride 99 97 - 110 mmol/L [facility] CO2 27 22 - 32 mmol/L [facility] Anion gap 10 2 - 15 mmol/L [facility] BUN 12 6 - 25 mg/dL [facility] Creatinine 0.53(L) 0.60 - 1.10 mg/dL [facility] Glucose 76 70 - 199 mg/dL [facility] Comment: Interpretive Data Fasting glucose >/= 126 mg/dl is diagnostic for diabetes. Fasting is defined as no caloric intake for at least 8 hours. Fasting glucose between 100 mg/dl to 125 mg/dl is diagnostic of prediabetes. In a patient with classic symptoms of hyperglycemia or hyperglycemic crisis, a random glucose >/= 200 mg/dl is diagnostic for diabetes. In the absence of unequivocal hyperglycemia, results should be confirmed by repeat testing. The classification and Diagnosis of Diabetes Diabetes Care 2021; 46: S19-S40. Current interpretive data was last revised 2022. Calcium 9.4 8.5 - 10.3 mg/dL [facility] Bilirubin, total 0.3 0.1 - 1.2 mg/dL [facility] Protein, pl 7.5 6.5 - 8.5 g/dL [facility] Albumin 3.6 3.5 - 5.0 g/dL [facility] Alk phos 109 40 - 130 Units/L [facility] ALT 9 7 - 45 Units/L [facility] AST 23 10 - 45 Units/L [facility] Blood 10/19/2024 2:07 PM CDT 10/19/2024 2:22 PM CDT [facility] Gaurav Hou MD LAB BLOOD ORDERABLES Final Result [facility] [place] [address] from Last 3 Months Insurance [employer] HMO [employer] H[employer] Advance Directives For more information, please contact: [phone] * Full Code (Latest Code Status on File) Date Activated Date Inactivated Comments 10/20/2024 3:06 AM 10/25/2024 10:26 PM * Full Code Date Activated Date Inactivated Comments 01/24/2021 9:08 PM 01/29/2021 5:17 PM Care Teams 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
--- OUTSIDE RECORDS SUMMARY | 2024-12-20 14:29 | XMS_ITS | Clinical Summary ---
Author Organization [facility] Address [address] [place] [address] Care Team Providers Care Radio Intelligence Operator Name Role Phone Monalisa Balderas MD Primary Care Provider [phone] Source Comments [facility],non-owned Affiliates and Associated Physician Practices is amultiple site organization consisting of ambulatory clinics and hospital sitesin [place], [place], [place] and [place]. This disclosure is being madepursuant to the Care Everywhere program and may not contain all information available regarding this patient. Last updated 18.[facility] Allergies No known active allergies Medications * Be aware that medications may not be up to date on this document. Alwaysverify current medications with the patient. albuterol HFA (VENTOLIN HFA) 108 (90 Base) MCG/ACT inhaler Inhale 2 puffs by mouth every 6 hours as needed for Shortness of Breath Active atorvastatin (LIPITOR) 80 MG tablet 80 mg by Enteral Tube route once daily 02/22/20 21 Active Cholecalciferol 25 MCG (1000 UT) 1,000 Units by Enteral route once daily Active diclofenac sodium (SOLARAZE) 3 % gel Apply to affected area once daily -- apply to hips Active FLUoxetine (PROZAC) 20 MG capsule 20 mg by Enteral Tube route 2 times daily 02/22/20 21 Active loratadine (CLARITIN) 10 MG tablet 10 mg by Enteral Tube route once daily Active miconazole (LOTRIMIN AF) 2 % powder Apply to affected area 2 times daily -- apply to perineal region 01/30/20 21 Active acetaminophen (TYLENOL) 325 MG tablet Take [...] by Enteral Tube route daily before breakfast 07/01/20 21 Active clotrimazole 1% cream - hydrocortisone 1 [...] with obstruction 05/15/2021 Gall stones 05/15/2021 Immunizations Immunization Administration Dates Next Due [place] primary monoval ent 12+ yr 0.3mL Purple [...] drink = 0.6 oz pur e alcohol) Comments Unknown Sex and Gender Information Value Date Recorded Sex Assigned at Not on file Legal Sex Female 8:38 AM CDT Gender Identity Not on file [...] Oxygen Concentration 21% 06/28/2021 1 :13 AM [employer] Weight 47.1 kg (103 lb 12.8 oz) [...] 1961 Opioid Medication Agreement - Annual 1961 HIV SCREENING 1976 HEPATITIS C SCREENING 04/22/1979 DTAP/TDAP/TD VACCINES (1 - Tdap) 1980 PNEUMOCOCCAL VACCINE 50+ (1 of 2 - PCV) 1980 ZOSTER VACCINE (1 of 2) 2011 COVID-19 VACCINE (3 - 2023-2 5 season) 2024 07/29/2021, 06/30/2021 DEPRESSION SCREENING 08/02/2024 INFLUENZA VACCINE (Season Ended) 2025 05/19/2021, 07/11/2019, 04/16/2015 Respiratory Syncytial Virus (RSV) Vaccine Pt: or [...] Date Last Indicated C DIFF 05/19/2021 05/19/2021 Insurance [facility] MEDICA[facility] - [place] Advance Directives * Full Code (Latest Code Status on File) Date Activated Date Inactivated Comments 10/27/2021 7:50 AM 10/31/2021 3:10 PM * Full Code Date Activated Date Inactivated Comments 06/23/2021 1:24 PM 06/30/2021 7:20 PM * Full Code Date Activated Date Inactivated Comments 05/15/2021 5:48 PM 05/22/2021 7:52 PM Care Teams Radio Intelligence Operator Relationship Specialty Start Date End Date Monalisa Balderas MD [address] [place] [address] [place] [id number] PCP - General Internal Medicine 05/15/21
--- OUTSIDE RECORDS SUMMARY | 2024-12-20 14:29 | XMS_ITS | Referral Summary ---
Author Organization [facility] Address [address] [place] [id number] Care Team Providers Care Cryogenic Transport Driver Name Role Phone Unknown, Notinfile Primary Care Provider Unavail able Encounters Date Type Department Care Team Description 10/19/2024 12:50 PM CDT - 10/25/2024 5:00 PM CDT Hospital Encounter [address] [phone] Timi Wilcox MD [place], MD Jesus Tena, Abebe Aranda MD PhD [place], MD Beck Rdz Sarakshi, MD Flores-Ruiz, Jaime E., MD Richard, Ana Paula Vilchis MD PhD Gastrostomy tube dysfunction (HCC) (Primary Dx) Discharge Disposition: Discharge to SNF 10/20/2024 2:14 PM CDT - 10/20/2024 11:59 PM CDT Hospital Encounter [facility] Radiology [address] [place] [id number] Discharge Disposition: Discharge to home or self care from Last 3 Months Allergies No known active allergies Medications atorvastatin [...] 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 S/b airplane pilot photogrammetry. OP regimen is Glucerna 360mL QID with 180mL FWF with each feed. Resumed TF and tolerated. Assessment & Plan (01/27/2021 3:35 PM CDT): -Initially Keep NPO for possible procedure, TF orders placed on hold. S/b airplane pilot photogrammetry. OP regimen is Glucerna 360mL QID with 180mL FWF with each feed. Resumed and tolerated. Assessment & Plan (01/26/2021 12:51 PM CDT): -Initially Keep NPO for possible procedure, TF orders placed on hold. S/b airplane pilot photogrammetry. -OP regimen is Glucerna 360mL QID with 180mL FWF with each feed. -Resume as tolerated. Assessment & Plan (01/25/2021 11:37 AM CDT): -Keep NPO for possible procedure, TF orders placed on hold. S/b airplane pilot photogrammetry. -OP regimen is Glucerna 360mL QID with [...] bloody output from drain and transferred to [facility] for further management. -Initial OSH CT uploaded to [facility] as reference image -Repeat CT A/P with [...] bloody output from drain and transferred to [facility] for further management. -Initial OSH CT uploaded [...] bloody output from drain and transferred to [facility] for further management. -Initial OSH CT uploaded [...] bloody output from drain and transferred to [facility] for further management. -Initial OSH CT uploaded [...] bloody output from drain and transferred to [facility] for further management. -Initial OSH CT uploaded [...] s/p G-tube -Continue ASA 81, atorvastatin 80 Social History Tobacco Use Types Packs/Day Years [...] 10/20/2024 7:45 PM CDT Plan of Treatment Not on file Procedures Procedure Name Priority Date/Time Associated Diagnosis [...] Results * eGFR (10/24/2024 9:31 PM CDT) eGFR >90 >=60 mL/min/1. 73 [...] NP LAB BLOOD ORDERABLES Final Resul t [facility] [place] [address] * (ABNORMAL) CBC without differential (10/24/2024 9:31 PM CDT) Pathologist [facility] WBC 7.7 3.8 - 9.9 K/cumm Hgb 9.4(L) 11.9 - 15.5 g/dL [facility] Hct 29.4(L) 35.6 - 45.5 % [facility] Plt 293 150 - 400 K/cumm [facility] MPV 10.3 9.1 - 12.3 fL [facility] RBC 3.68(L) 3.90 - 5.20 M/cumm [facility] MCV 79.9(L) 81.3 - 96.4 fL [facility] MCH 25.5(L) 27.1 - 33.3 pg [facility] MCHC 32.0(L) 32.3 - 35.7 g/dL [facility] RDW CV 13.9 11.1 - 14.9 % [facility] RDW SD 40.4 35.7 - 48.1 fL [facility] NRBC abs 0.00 0.00 - 0.01 K/cumm [facility] Blood 10/24/2024 9:31 PM CDT 10/24/2024 10:59 PM CDT us Camille Garcia CHIEF OPHTHALMIC TECHNICIAN LAB BLOOD ORDERABLES Final Resul t [facility] [place] [address] * (ABNORMAL) Phosphorus (10/24/2024 9:31 PM CDT) Pathologist [facility] Phosphorus, pl 1.7(L) 2.3 - 4.5 mg/dL Blood 10/24/2024 9:31 PM CDT 10/24/2024 10:58 PM CDT us Sangita Olmos DNP LAB BLOOD ORDERABL ES Final Result [facility] [place] [address] * Magnesium (10/24/2024 9:31 PM CDT) Pathologist [facility] Magnesium 1.6 1.4 - 2.5 mg/dL Blood 10/24/2024 9:31 PM CDT 10/24/2024 10:58 PM CDT Sangita Herman Megsandhya DNP LAB BLOOD ORDERABL ES Final Result [facility] [place] [address] * (ABNORMAL) Basic metabolic panel (10/24/2024 9:31 PM CDT) Pathologist [facility] Sodium 148(H) 135 - 145 mmol/L Potassium, pl 4.0 3.3 - 4.9 mmol/L [facility] Chloride 116(H) 97 - 110 mmol/L [facility] CO2 24 22 - 32 mmol/L [facility] Anion gap 8 2 - 15 mmol/L [facility] BUN 8 6 - 25 mg/dL [facility] Creatinine 0.44(L) 0.60 - 1.10 mg/dL [facility] Glucose 153 70 - 199 mg/dL [facility] Comment: Interpretive Data Fasting glucose >/= [...] classification and Diagnosis of Diabetes Diabetes Care 202; 46: S19-S40. Current interpretive data was last revised 2022. Calcium 8.4(L) 8.5 - 10.3 mg/dL [facility] Blood 10/24/2024 9:31 PM CDT 10/24/2024 10:58 PM CDT Camille Garcia CHIEF OPHTHALMIC TECHNICIAN LAB BLOOD ORDERABLES Final Resul t Performing Organization Address [facility] Co de Phone Number [facility] [place] [address] * eGFR (10/23/2024 8:14 PM CDT) eGFR [...] 8:14 PM CDT 10/23/2024 9:00 PM CDT Camille Garcia NP LAB BLOOD ORDERABLES Final Resul t Performing Organization Address City/[facility]/ZIP Co de Phone Number [facility] [place] [address] * (ABNORMAL) CBC without differential (10/23/2024 8:14 PM CDT) Pathologist [facility] WBC 6.9 3.8 - 9.9 K/cumm Hgb 9.1(L) 11.9 - 15.5 g/dL [facility] Hct 28.6(L) 35.6 - 45.5 % [facility] Plt 292 150 - 400 K/cumm [facility] MPV 10.3 9.1 - 12.3 fL [facility] RBC 3.56(L) 3.90 - 5.20 M/cumm [facility] MCV 80.3(L) 81.3 - 96.4 fL [facility] MCH 25.6(L) 27.1 - 33.3 pg [facility] MCHC 31.8(L) 32.3 - 35.7 g/dL [facility] RDW CV 13.8 11.1 - 14.9 % [facility] RDW SD 40.4 35.7 - 48.1 fL [facility] NRBC abs 0.00 0.00 - 0.01 K/cumm [facility] Blood 10/23/2024 8:14 PM CDT 10/23/2024 9:01 PM CDT us Camille Garcia CHIEF OPHTHALMIC TECHNICIAN LAB BLOOD ORDERABLES Final Resul t [facility] [place] [address] * (ABNORMAL) Basic metabolic panel (10/23/2024 8:14 PM CDT) Sodium 144 135 - 145 mmol/L Potassium, pl 3.0(L) 3.3 - 4.9 mmol/L [facility] Chloride 108 97 - 110 mmol/L [facility] CO2 27 22 - 32 mmol/L [facility] Anion gap 9 2 - 15 mmol/L [facility] BUN 8 6 - 25 mg/dL [facility] Creatinine 0.44(L) 0.60 - 1.10 mg/dL [facility] Glucose 134 70 - 199 mg/dL [facility] Comment: Interpretive Data Fasting glucose >/= [...] classification and Diagnosis of Diabetes Diabetes Care 202; 46: S19-S40. Current interpretive data was last revised 2022. Calcium 8.6 8.5 - 10.3 mg/dL [facility] Blood 10/23/2024 8:14 PM CDT 10/23/2024 9:00 PM CDT Camille Garcia NP LAB BLOOD ORDERABLES Final Resul t Performing Organization Address [facility] de Phone Number [facility] [place] [address] * (ABNORMAL) Protime-INR (10/22/2024 8:30 PM CDT) PT 13.8(H) 9.7 - 13.0 sec INR 1.27(H) 0.90 - 1.20 [facility] Comment: Interpretive data Oral anticoagulant therapeutic ranges: Venous thromboembolism prophylaxis or treatment: 2.0-3.0 CARDIOLOGY Standard range: 2.0-3.0 High-intensity range: 2.5-3.5 Refer to indication-specific guidelines for appropriate target ranges for prosthetic heart valve replacement. Current interpretive data was last revised on 2019. Blood 10/22/2024 8:30 PM CDT 10/22/2024 8:58 PM CDT Camille Garcia NP LAB BLOOD ORDERABLES Final Resul t Performing Organization Address [facility] Co de Phone Number [facility] [place] [address] * (ABNORMAL) CBC without differential (10/22/2024 8:30 PM CDT) WBC 7.4 3.8 - 9.9 K/cumm Hgb 9.4(L) 11.9 - 15.5 g/dL [facility] Hct 30.0(L) 35.6 - 45.5 % [facility] Plt 323 150 - 400 K/cumm [facility] MPV 10.4 9.1 - 12.3 fL [facility] RBC 3.66(L) 3.90 - 5.20 M/cumm [facility] MCV 82.0 81.3 - 96.4 fL [facility] MCH 25.7(L) 27.1 - 33.3 pg [facility] MCHC 31.3(L) 32.3 - 35.7 g/dL [facility] RDW CV 13.6 11.1 - 14.9 % [facility] RDW SD 40.9 35.7 - 48.1 fL [facility] NRBC abs 0.00 0.00 - 0.01 K/cumm [facility] Blood 10/22/2024 8:30 PM CDT 10/22/2024 8:50 PM CDT us Camille Garcia NP LAB BLOOD ORDERABLES Final Resul t [facility] [place] [address] * US RUQ (10/22/2024 9:40 AM CDT) Anatomical Region Laterality Modality Abdomen N/A Ultrasound 10/22/2024 10:4 5 AM CDT Impressions 10/22/2024 10:45 AM CDT 1. Abdominal wall/subcutaneous fluid collection about the prior cholecystostomy site suboptimally assessed. 2. Possible trace fluid collection adjacent to the gallbladder fundus versus artifact secondary to gallbladder stones. 3. Decompressed gallbladder with extensive cholelithiasis Electronically signed by: Alcieds Braun M.D. Narrative 10/22/2024 10:45 AM CDT [...] lt * eGFR (10/22/2024 9:00 AM CDT) [facility] eGFR >90 >=60 mL/min/1. 73 m2 Comment: [...] NP LAB BLOOD ORDERABLES Final Resul t [facility] Department of Laboratories [place], [place] [id number] * (ABNORMAL) CBC without differential (10/22/2024 9:00 AM CDT) [facility] WBC 4.7 3.8 - 9.9 K/cumm Hgb 9.4(L) 11.9 - 15.5 g/dL [facility] Hct 29.0(L) 35.6 - 45.5 % [facility] Plt 302 150 - 400 K/cumm [facility] MPV 10.3 9.1 - 12.3 fL [facility] RBC 3.64(L) 3.90 - 5.20 M/cumm [facility] MCV 79.7(L) 81.3 - 96.4 fL [facility] MCH 25.8(L) 27.1 - 33.3 pg [facility] MCHC 32.4 32.3 - 35.7 g/dL [facility] RDW CV 13.6 11.1 - 14.9 % [facility] RDW SD 39.3 35.7 - 48.1 fL [facility] NRBC abs 0.00 0.00 - 0.01 K/cumm [facility] Blood 10/22/2024 9:00 AM CDT 10/22/2024 9:22 AM CDT us Camille Garcia NP LAB BLOOD ORDERABLES Final Resul t Performing Organization Address City/[facility] Co de Phone Number [facility] [place] [address] * Phosphorus (10/22/2024 9:00 AM CDT) Phosphorus, pl 2.9 2.3 - 4.5 mg/dL Blood 10/22/2024 9:00 AM CDT 10/22/2024 9:22 AM CDT us Camille Garcia CHIEF OPHTHALMIC TECHNICIAN LAB BLOOD ORDERABLES Final Resul t Performing Organization Address [facility] Co de Phone Number [facility] [place] [address] * Magnesium (10/22/2024 9:00 AM CDT) Magnesium 1.8 1.4 - 2.5 mg/dL Blood 10/22/2024 9:00 AM CDT 10/22/2024 9:22 AM CDT us Camille Garcia CHIEF OPHTHALMIC TECHNICIAN LAB BLOOD ORDERABLES Final Resul t Performing Organization Address City/[facility] Co de Phone Number [facility] [place] [address] * (ABNORMAL) Basic metabolic panel (10/22/2024 9:00 AM CDT) Sodium 144 135 - 145 mmol/L Potassium, pl 3.6 3.3 - 4.9 mmol/L [facility] Chloride 109 97 - 110 mmol/L [facility] CO2 22 22 - 32 mmol/L [facility] Anion gap 13 2 - 15 mmol/L [facility] BUN 15 6 - 25 mg/dL [facility] Creatinine 0.44(L) 0.60 - 1.10 mg/dL [facility] Glucose 80 70 - 199 mg/dL [facility] Comment: Interpretive Data Fasting glucose >/= [...] 2022. Calcium 8.7 8.5 - 10.3 mg/dL [facility] Blood 10/22/2024 9:00 AM CDT 10/22/2024 9:22 AM CDT us Camille Garcia CHIEF OPHTHALMIC TECHNICIAN LAB BLOOD ORDERABLES Final Resul t [facility] [place] [address] * Blood culture Blood Blood (10/20/2024 11:30 PM CDT) Report Final Report: No growth Blood (Blood) 10/20/2024 11: 30 PM CDT 10/21/2024 3:14 AM CDT Narrative [facility] - 10/25/2024 7:00 AM CDT Collection->Peripheral [...] performance characteristics have been verified by the [facility] Microbiology Laboratory. For questions about this culture, contact the Microbiology Laboratory at [phone]. Interpretive data was last revised on 24. Lyndsay Solares MD LAB MICROBIOLOGY - GENERAL O RDERABLES Final Result [facility] [place] [address] * Blood culture Blood Blood (10/20/2024 11:19 PM CDT) Report Final Report: No growth Blood (Blood) 10/20/2024 11: 19 PM CDT 10/21/2024 3:14 AM CDT Maribell JAVI [facility] - 10/25/2024 7:00 AM CDT Collection->Peripheral 1. [...] performance characteristics have been verified by the [facility] Microbiology Laboratory. For questions about this culture, contact the Microbiology Laboratory at [phone]. Interpretive data was last revised on 24. us Lyndsay Solares MD LAB MICROBIOLOGY - GENERAL O RDERABLES Final Result [facility] [place] [address] * FL Upper GI Series, Single Contrast [...] recent CT dated 10/19/2024. TECHNIQUE: After a public finance specialist radiograph was obtained, the patient's existing percutaneous [...] recent CT dated 10/19/2024. TECHNIQUE: After a public finance specialist radiograph was obtained, the patient's existing percutaneous [...] it. Electronically signed by: George Price M.D. us Alcides Blair MD IMG FLUOROSCOPY PROCEDURE S [...] of Race in Diagnosing Kidney Disease, JASN 202). The CKD-EPI equation should not be used for patients with unstable renal function and has not been validated in children and those over 70. Current interpretive data was last reviewed 2021. Blood 10/20/2024 4:07 AM CDT 10/20/2024 4:21 AM CDT us Alcides Blair MD LAB BLOOD ORDERABLES Emily majano Result [facility] [place] [address] * Differential, auto (10/20/2024 4:07 AM CDT) Neutrophil abs 3.7 1.5 - 6.5 K/cumm Imm gran abs 0.0 0.0 - 0.1 K/cumm [facility] Lymphocyte abs 1.5 0.8 - 3.3 K[facility]cumm [facility] Monocyte abs 0.5 0.2 - 0.8 K/cumm [facility] Eosinophil abs 0.2 0.0 - 0.5 K/cumm [facility] Basophil abs 0.0 0.0 - 0.1 K/cumm [facility] Neutrophil pct 62.3 % [facility] Comment: Interpretive Data Percent cell count reference ranges are not reported, since discordance with absolute values may lead to misinterpretation of CBC data. Current Interpretive Data was last revised on 2017. Imm gran pct 0.3 % [facility] Comment: Interpretive Data Percent cell count reference ranges are not reported, since discordance with absolute values may lead to misinterpretation of CBC data. Current Interpretive Data was last revised on 2017. Lymphocyte pct 26.0 % [facility] Comment: Interpretive Data Percent cell count reference ranges are not reported, since discordance with absolute values may lead to misinterpretation of CBC data. Current Interpretive Data was last revised on 2017. Monocyte pct 8.0 % [facility] Comment: Interpretive Data Percent cell count reference ranges are not reported, since discordance with absolute values may lead to misinterpretation of CBC data. Current Interpretive Data was last revised on 2017. Eosinophil pct 2.9 % [facility] Comment: Interpretive Data Percent cell count reference ranges are not reported, since discordance with absolute values may lead to misinterpretation of CBC data. Current Interpretive Data was last revised on 2017. Basophil pct 0.5 % [facility] Comment: Interpretive Data Percent cell count reference ranges are not reported, since discordance with absolute values may lead to misinterpretation of CBC data. Current Interpretive Data was last revised on 2017. Blood 10/20/2024 4:07 AM CDT 10/20/2024 4:21 AM CDT Alcides Blair MD LAB BLOOD ORDERABLES Emily l Result Performing Organization Address City/[facility]/ZIP Co de Phone Number [facility] [place] [address] * (ABNORMAL) CBC with auto differential (10/20/2024 4:07 AM CDT) WBC 5.9 3.8 - 9.9 K/cumm Hgb 10.9(L) 11.9 - 15.5 g/dL [facility] Hct 34.4(L) 35.6 - 45.5 % [facility] Plt 337 150 - 400 K/cumm [facility] MPV 10.3 9.1 - 12.3 fL [facility] RBC 4.30 3.90 - 5.20 M/cumm [facility] MCV 80.0(L) 81.3 - 96.4 fL [facility] MCH 25.3(L) 27.1 - 33.3 pg [facility] MCHC 31.7(L) 32.3 - 35.7 g/dL [facility] RDW CV 13.9 11.1 - 14.9 % [facility] RDW SD 39.8 35.7 - 48.1 fL [facility] NRBC abs 0.00 0.00 - 0.01 K/cumm [facility] Blood 10/20/2024 4:07 AM CDT 10/20/2024 4:21 AM CDT Alcides Blair MD LAB BLOOD ORDERABLES Emily l Result Performing Organization Address City/[facility]/ZIP Co de Phone Number [facility] [place] [address] * (ABNORMAL) Erythrocyte sedimentation rate (10/20/2024 4:07 AM CDT) Erythrocyte sedimentation rate 58(H) 1 - 30 mm/hr Blood 10/20/2024 4:07 AM CDT 10/20/2024 4:20 AM CDT Alcides Blair MD LAB BLOOD ORDERABLES Emily l Result Performing Organization Address [facility] de Phone Number [facility] [place] [address] * Protime-INR (10/20/2024 4:07 AM CDT) Pathologist [facility] PT 12.5 9.7 - 13.0 sec INR 1.15 0.90 - 1.20 [facility] Comment: Interpretive data Oral anticoagulant therapeutic ranges: Venous thromboembolism prophylaxis or treatment: 2.0-3.0 CARDIOLOGY Standard range: 2.0-3.0 High-intensity range: 2.5-3.5 Refer to indication-specific guidelines for appropriate target ranges for prosthetic heart valve replacement. Current interpretive data was last revised on 2019. Blood 10/20/2024 4:07 AM CDT 10/20/2024 4:28 AM CDT Alcides Blair MD LAB BLOOD ORDERABLES Emily l Result Performing Organization Address [facility] de Phone Number [facility] [place] [employer] [place] [address] * (ABNORMAL) CRP (acute phase) (10/20/2024 4:07 AM CDT) Pathologist [facility] CRP 47.0(H) <=10.0 mg/L Blood 10/20/2024 4:07 AM CDT 10/20/2024 4:20 AM CDT Result [facility] Alcides Blair MD LAB BLOOD ORDERABLES Emily l Result [facility] [place] [address] * Phosphorus (10/20/2024 4:07 AM CDT) [facility] Phosphorus, pl 4.3 2.3 - 4.5 mg/dL Blood 10/20/2024 4:07 AM CDT 10/20/2024 4:21 AM CDT Alcides Blair MD LAB BLOOD ORDERABLES Emily l Result Performing Organization Address [facility] Co de Phone Number [facility] [place] [address] * Magnesium (10/20/2024 4:07 AM CDT) [facility] Magnesium 1.9 1.4 - 2.5 mg/dL Blood 10/20/2024 4:07 AM CDT 10/20/2024 4:21 AM CDT Alcides Blair MD LAB BLOOD ORDERABLES Emily l Result Performing Organization Address [facility] Co de Phone Number [facility] [place] [address] * (ABNORMAL) Basic metabolic panel (10/20/2024 4:07 AM CDT) [facility] Sodium 141 135 - 145 mmol/L Potassium, pl 3.9 3.3 - 4.9 mmol/L [facility] Chloride 104 97 - 110 mmol/L [facility] CO2 26 22 - 32 mmol/L [facility] Anion gap 11 2 - 15 mmol/L [facility] BUN 13 6 - 25 mg/dL [facility] Creatinine 0.48(L) 0.60 - 1.10 mg/dL [facility] Glucose 87 70 - 199 mg/dL [facility] Comment: Interpretive Data Fasting glucose >/= [...] 2022. Calcium 9.4 8.5 - 10.3 mg/dL [facility] Blood 10/20/2024 4:07 AM CDT 10/20/2024 4:21 AM CDT us Alcides Blair MD LAB BLOOD ORDERABLES Emily l Result [facility] [place] [address] * CT Abdomen Pelvis W Contrast (10/19/2024 [...] fractures. No suspicious osseous lesion. Procedure Note Yoly, Annika Ruggiero MD - 10/19/2024 EXAMINATION: Computed tomography of [...] 2:23 PM CDT 10/19/2024 2:23 PM CDT us Timi Wilcox MD LAB POCT ORDERABLES - DEV ICE Final Result Performing Organization Address City/[facility]/ZIP Co de Phone Number [facility] [place] [address] * POCT lactate (10/19/2024 2:14 PM CDT) Lactate POC i-STAT 1.8 0.7 - 2.0 mmol/L Blood 10/19/2024 2:14 PM CDT 10/19/2024 2:14 PM CDT us Timi Wilcox MD LAB POCT ORDERABLES - DEV ICE Final Result Performing Organization Address City/[facility] Co de Phone Number [facility] [place] [address] * eGFR (10/19/2024 2:07 PM CDT) Pathologist [facility] eGFR >90 >=60 mL/min/1. 73 m2 Comment: [...] 2:07 PM CDT 10/19/2024 2:22 PM CDT Giulianaramona Hou MD LAB BLOOD ORDERABLES Final Result [facility] [place] [address] * Differential, auto (10/19/2024 2:07 PM CDT) Neutrophil abs 3.3 1.5 - 6.5 K/cumm Imm gran abs 0.0 0.0 - 0.1 K/cumm [facility] Lymphocyte abs 2.3 0.8 - 3.3 K/cumm [facility] Monocyte abs 0.8 0.2 - 0.8 K/cumm [facility] Eosinophil abs 0.2 0.0 - 0.5 K/cumm [facility] Basophil abs 0.0 0.0 - 0.1 K/cumm [facility] Neutrophil pct 49.9 % [facility] Comment: Interpretive Data Percent cell count reference ranges are not reported, since discordance with absolute values may lead to misinterpretation of CBC data. Current Interpretive Data was last revised on 2017. Imm gran pct 0.3 % [facility] Comment: Interpretive Data Percent cell count reference ranges are not reported, since discordance with absolute values may lead to misinterpretation of CBC data. Current Interpretive Data was last revised on 2017. Lymphocyte pct 34.6 % [facility] Comment: Interpretive Data Percent cell count reference ranges are not reported, since discordance with absolute values may lead to misinterpretation of CBC data. Current Interpretive Data was last revised on 2017. Monocyte pct 12.1 % [facility] Comment: Interpretive Data Percent cell count reference ranges are not reported, since discordance with absolute values may lead to misinterpretation of CBC data. Current Interpretive Data was last revised on 2017. Eosinophil pct 2.7 % [facility] Comment: Interpretive Data Percent cell count reference ranges are not reported, since discordance with absolute values may lead to misinterpretation of CBC data. Current Interpretive Data was last revised on 2017. Basophil pct 0.4 % [facility] Comment: Interpretive Data Percent cell count reference ranges are not reported, since discordance with absolute values may lead to misinterpretation of CBC data. Current Interpretive Data was last revised on 2017. Blood 10/19/2024 2:07 PM CDT 10/19/2024 2:22 PM CDT Giuliana Hou MD LAB BLOOD ORDERABLES Final Result [facility] [address] [facility] [place] [address] * (ABNORMAL) CBC with auto differential (10/19/2024 2:07 PM CDT) WBC 6.7 3.8 - 9.9 K/cumm Hgb 10.4(L) 11.9 - 15.5 g/dL [facility] Hct 32.0(L) 35.6 - 45.5 % [facility] Plt 334 150 - 400 K/cumm [facility] MPV 11.0 9.1 - 12.3 fL [facility] RBC 4.00 3.90 - 5.20 M/cumm [facility] MCV 80.0(L) 81.3 - 96.4 fL [facility] MCH 26.0(L) 27.1 - 33.3 pg [facility] MCHC 32.5 32.3 - 35.7 g/dL [facility] RDW CV 14.1 11.1 - 14.9 % [facility] RDW SD 41.1 35.7 - 48.1 fL [facility] NRBC abs 0.00 0.00 - 0.01 K/cumm [facility] Blood 10/19/2024 2:07 PM CDT 10/19/2024 2:22 PM CDT us Giuliana Hou MD LAB BLOOD ORDERABLES Final Result [facility] [address] [facility] [place] [address] * Lipase (10/19/2024 2:07 PM CDT) Lipase 26 10 - 99 Units/L Blood 10/19/2024 2:07 PM CDT 10/19/2024 2:22 PM CDT [facility] MD LAB BLOOD ORDERABLES Final Result Performing Organization Address [facility] Co de Phone Number [facility] [place] [address] * (ABNORMAL) Comprehensive metabolic panel (10/19/2024 2:07 PM CDT) [facility] Sodium 136 135 - 145 mmol/L Potassium, pl 4.3 3.3 - 4.9 mmol/L [facility] Chloride 99 97 - 110 mmol/L [facility] CO2 27 22 - 32 mmol/L [facility] Anion gap 10 2 - 15 mmol/L [facility] BUN 12 6 - 25 mg/dL [facility] Creatinine 0.53(L) 0.60 - 1.10 mg/dL [facility] Glucose 76 70 - 199 mg/dL [facility] Comment: Interpretive Data Fasting glucose >/= [...] 2022. Calcium 9.4 8.5 - 10.3 mg/dL [facility] Bilirubin, total 0.3 0.1 - 1.2 mg/dL [facility] Protein, pl 7.5 6.5 - 8.5 g/dL [facility] Albumin 3.6 3.5 - 5.0 g/dL [facility] Alk phos 109 40 - 130 Units/L [facility] ALT 9 7 - 45 Units/L [facility] AST 23 10 - 45 Units/L [facility] Blood 10/19/2024 2:07 PM CDT 10/19/2024 2:22 PM CDT Giuliana Hou MD LAB BLOOD ORDERABLES Final Result [facility] [address] [facility] [place] [address] from Last 3 Months Insurance [employer] HMO [facility] MEDICARE O Advance Directives For more information, please contact: [phone] * Full Code (Latest Code Status on File) Date Activated Date Inactivated Comments 10/20/2024 3:06 AM 10/25/2024 10:26 PM * Full Code Date Activated Date Inactivated Comments 01/24/2021 9:08 PM 01/29/2021 5:17 PM Care Teams Cryogenic Transport Driver Relationship Specialty Start Date End Date Unknown, Notinfile PCP - General 01/24/21
[2024-12-20 14:34] LABS: Platelet Estimate Adequate (Adequate)
[2024-12-20 14:35] LABS: Anisocytosis 1+; Ovalocytes 1+
[2024-12-20 14:36] LABS: Large Platelets Present; Schistocytes None Seen
[2024-12-20 14:53] LABS: Add Urine Microscopic? YES; Appearance Urine Cloudy (Clear); Bacteria Urine None Seen /hpf; Bilirubin Urine Negative (Negative); Blood Urine Negative (Negative); Color Urine Dark Yellow (Yellow); Glucose Urine UA Negative (Negative); Hyaline Casts Urine Present /lpf; Ketones Urine Trace mg/dL (Negative); Leukocyte Esterase Ur Trace LEU/UL (Negative); Nitrate Urine Negative (Negative); Non Pathogenic Casts >20; Protein Urine Trace mg/dL (Negative); Specific Grav Ur 1.028 (1.001-1.035); Squamous Epithelial Cell Urine Moderate /hpf (Few); WBC Urine 0-5 /hpf (0-3)
[2024-12-20 14:56] LABS: INR 1.1; Prothrombin Time 14.3 Seconds (11.1-14.7)
--- NOTE | 2024-12-20 15:03 | PC.NURSE ---
This RN attempted to call phone numbers listed on paperwork from [facility]. All phones disconnected. [facility] called by this RN. Per GALE Calvert at [facility] one son is incarcerated and one is . We've been working for a couple of months to get guardianship on her. GALE Calvert confirmed that pt. is a full code. JA Kraus updated. MD Jerome updated. Consult placed for care coordination.
--- NOTE | 2024-12-20 15:35 | PC.NURSE ---
Pt's blood pressures remain low, however MAP's have improved. This RN spoke with MD Cano about pt's hypernatremia and plan to repeat sodium level. This RN also asked about possible head CT, as we were told pt's baseline mental status is being able to answer yes/no questions, but pt appears to have slight disconjugate gaze, difficult to assess due to pt's inability to follow commands at this time. Pupils equal bilaterally. Plan to add on head CT for imaging as well.
[2024-12-20] MEDS: PIPERACILLN/TAZ 3.375GM/NS50ML 3.375 GM/50 ML BAG IVPB (16:08)
[2024-12-20 16:09] LABS: Reflex Lactic Acid Yes or No Add Lactic
[2024-12-20 16:22] LABS: Alanine Aminotransferase 57 U/L (6-35); Albumin Level 3.2 g/dL (3.5-5.1); Alkaline Phosphatase 86 U/L (38-126); Anion Gap 12 mmol/L (4-12); Aspartate Amino Transferase 41 U/L (14-36); Bilirubin,Total 0.6 mg/dL (0.2-1.3); Blood Urea Nitrogen 82 mg/dL (7-17); Calcium 7.7 mg/dL (8.4-10.2); Carbon Dioxide 21 mmol/L (22-30); Chloride 132 mmol/L (98-107); Estimated CRCL calculation 28 ml/min; Estimated Glomerular Filt Rate 50; Glucose 205 mg/dL (65-110); Potassium 2.8 mmol/L (3.4-5.0); Sodium 165 mmol/L (137-145)
--- NOTE | 2024-12-20 16:55 | PC.NURSE ---
Dr. Cano at bedside attempting central line placement. Per MD, no consent required d/t procedure being emergent.
--- NOTE | 2024-12-20 16:56 | PC.NURSE ---
MD Cano and RN at bedside for central line placement.
[2024-12-20 17:17] LABS: Lactic Acid 1.4 mmol/L (0.7-2.0)
[2024-12-20 17:29] LABS: MRSA (PCR) DETECTED (NOT DETECTE)
[2024-12-20] MEDS: SODIUM CHLORIDE 0.45% 1,000 ML 999 ML IV CONT (17:34)
[2024-12-20] MEDS: VANCOMYCIN 500 MG/NS 100 ML 500 MG/100 ML BAG 100 MG IVPB (17:36)
[2024-12-20] MEDS: POTASSIUM CHLORIDE INJ 40 MEQ in SODIUM CHLORIDE 0.9% IV 500 ML 130 MEQ IVPB (18:03)
--- NOTE | 2024-12-20 18:26 | PC.NURSE ---
Pt. hypothermic. Dr. Jerome west initiated.
[2024-12-20] MEDS: NOREPINEPHRINE 8 MG/D5W 250 ML 8 MG/250 ML BAG 9.38 MG IV CONT (18:34)
[2024-12-20] MEDS: levoFLOXacin 750 MG/D5W 150 ML 750 MG/150 ML BAG 100 MG IVPB (18:39)
--- NOTE | 2024-12-20 19:18 | PC.NURSE ---
Pt still on norepinephrine at 5 mcg/min as documented in SEP. Pt's heart rate regular, but has been more tachycardic, HR currently 122 bpm. Minimal change in core temp (97.5F), BP 91/70 currently. MD made aware of HR increase. No further orders at this time. Awaiting ICU admission. VS as documented. Pt does seem to be slightly more reactive to physical stimulation.
[2024-12-20] MEDS: metroNIDAZOLE 500 MG/ISO 100ML 500 MG/100 ML BAG 100 MG IVPB (20:29)
--- NOTE | 2024-12-20 20:33 | PC.NURSE ---
Pt had small BM. Was liquid and absorbed into depends, was unable to obtain stool specimen due to absorption. Clean depends and clean dulce placed under patient.
--- NOTE | 2024-12-20 21:05 | ADMGEN ---
This patient, Marilyn Ram, was admitted to Intensive Care Unit-6. Patient/family oriented to hospital policies and general routines including ID bracelet, bed and alarms, visiting hours, pain management, procedures, bathroom and other care routines, personal items, smoking policy, room service/diet, and visiting hours. Information on how to activate the Rapid Response Team has been discussed. Patient/Family are encouraged to report perceived risks to care and to ask questions if they do not understand what they are told or what they should do.
[2024-12-20 21:55] LABS: Alanine Aminotransferase 45 U/L (6-35); Albumin Level 2.6 g/dL (3.5-5.1); Alkaline Phosphatase 78 U/L (38-126); Anion Gap 10 mmol/L (4-12); Aspartate Amino Transferase 32 U/L (14-36); Bilirubin,Total 0.6 mg/dL (0.2-1.3); Blood Urea Nitrogen 62 mg/dL (7-17); Carbon Dioxide 18 mmol/L (22-30); Chloride 131 mmol/L (98-107); Estimated CRCL calculation 37 ml/min; Estimated Glomerular Filt Rate > 60; Glucose 265 mg/dL (65-110); Magnesium 1.9 mg/dL (1.6-2.3); Phosphorus 3.3 mg/dL (2.5-4.5); Potassium 2.8 mmol/L (3.4-5.0); Sodium 159 mmol/L (137-145)
[2024-12-20] MEDS: POTASSIUM CHLORIDE 20 MEQ PACKET (FOR LIQUID) 40 MEQ FEED TUBE (23:16)
[2024-12-20] MEDS: CENTRAL LINE FLUSH 10 ML IV PUSH (23:16)
[2024-12-20] MEDS: KCL 40 MEQ/WATER 100 ML 100 ML 25 ML IVPB (23:18)
--- NOTE | 2024-12-20 23:24 | PM.IMHP ---
H&P: HPI History of Present Illness Date/Time: 12/20/24 22:24 Chief Complaint: Altered Mental Status, electrolyte abnormalities, septic shock, severe dehydration Narrative: This is a 64 year old female patient who is resident of local nursing facility and is admitted to the ICU with septic shock on vasopressor support and IV antibiotics. She presented to ER with altered mental status and hypotension. Patient had severe diarrhea on arrival that was greenish/black and hemoccult positive. Past history includes prior CVA with dysphagia and G-tube status, non-verbal at baseline. Patient is full code and no family to contact to discuss changing code status. Patient has chronic cholecystitis with cholecystocutaneous fistula that is found to have purulent drainage. Workup in ER revealed severe hypotension on arrival, profound dehydration status with profound hypernatremia. Labs indicate dehydration, sepsis and electrolyte abnormalities. Blood pressure remained low after 3 liters of IV fluids (about 80 mL/kg) and patient was started on norepinephrine drip through newly placed right subclavian central line. Medical Assistant Instructor consulted and accepted patient. Airway remained patent with good oxygenation. Patient is admitted for medical stabilization. Review of Systems Review of Systems: ROS unobtainable: Yes unobtainable due to mental status PMFSH Past Medical History Medical History History of acute cholecystitis Chronic anemia Dyslipidemia Chronic obstructive pulmonary disease Cerebrovascular accident complicated by intracranial hemorrhage with resultant right-sided weakness, dysphagia, and expressive aphasia Reflux esophagitis High cholesterol Hypertension Depression Surgical History Surgical History History of incision and drainage History of insertion of cholecystostomy tube History of gastrostomy tube placement History of esophagogastroduodenoscopy (EGD) (05/2021) Hiatal hernia and reflux esophagitis History of ankle surgery Family History Family History Other Cancer Cerebrovascular accident Diabetes mellitus Heart disease Hypertension Social History Social History Social History: Surrogate medical decision maker: Rudy Ram, debi. Code status: FULL CODE. Smoking packs per day: 0.5 Smoking cigarettes per day: 10.0 Smoking status: Unknown if ever smoked Alcohol intake: unknown Substance use: unknown Substance use type: does not use Living arrangements: long-term Additional living arrangements comments: . She has 2 sons. Additional occupation/education comments: Disabled. Spiritual care concerns: No Meds Home Medications and Allergies Home Medications ?Medication ?Instructions ?Recorded ?Confirmed ?Type aspirin 81 mg chewable tablet 81 mg feeding tube DAILY 01/16/21 09/11/24 History atorvastatin 80 mg tablet 80 mg feeding tube HS 01/16/21 09/11/24 History cholecalciferol (vitamin D3) 25 25 mcg feeding tube DAILY 01/16/21 09/11/24 History mcg (1,000 unit) capsule famotidine 20 mg tablet 20 mg feeding tube BID 01/16/21 09/11/24 History loratadine 10 mg capsule 10 mg feeding tube DAILY 01/16/21 09/11/24 History ondansetron HCl 4 mg tablet 4 mg feeding tube Q6H PRN Nausea 05/06/21 09/11/24 History (Zofran) And Vomiting Ventolin HFA 2 puff inhalation PRN PRN Wheezing 01/23/23 09/11/24 History Voltaren Arthritis Pain 1 appful topical DAILY 01/23/23 09/11/24 History acetaminophen 650 mg feeding tube Q4H PRN Pain 01/23/23 09/11/24 History (Scale Score 1-3)/fever ascorbic acid (vitamin C) 500 mg 500 mg feeding tube DAILY 01/23/23 09/11/24 History tablet (Vitamin C) carvedilol 6.25 mg tablet 6.25 mg feeding tube BID 01/23/23 09/11/24 History ferrous sulfate 220 mg (44 mg 330 mg feeding tube BID 01/23/23 09/11/24 History iron)/5 mL oral elixir lisinopril 1 mg/mL oral solution 5 mg feeding tube DAILY 01/23/23 09/11/24 History magnesium citrate 300 ml feeding tube DAILY PRN 01/23/23 09/11/24 History Constipation sertraline 20 mg/mL oral 75 mg feeding tube DAILY 01/23/23 09/11/24 History concentrate bisacodyl 10 mg rectal suppository 10 mg RECTAL DAILY PRN constipation 09/11/24 09/11/24 History ezetimibe 10 mg tablet 10 mg feeding tube .every bedtime 09/11/24 09/11/24 History fluoxetine 20 mg/5 mL (4 mg/mL) 20 mg feeding tube DAILY 09/11/24 09/11/24 History oral solution gentamicin 0.1 % topical cream 1 applic topical DAILY 09/11/24 09/11/24 History imipenem-cilastatin 500 mg See Rx Instructions .Route .COMPLEX 09/11/24 09/11/24 History intravenous solution lisinopril 5 mg tablet 5 mg feeding tube DAILY 09/11/24 09/11/24 History silver sulfadiazine 1 % topical 1 applic topical DAILY 09/11/24 09/11/24 History cream sodium phosphates 19 gram-7 118 ml RECTAL DAILY PRN 09/11/24 09/11/24 History gram/118 mL enema (Fleet Enema) constipation amoxicillin 875 mg-potassium 1 tablet PO Q12H #6 tabs 09/15/24 Rx clavulanate 125 mg tablet amoxicillin 875 mg-potassium 1 tablet feeding tube Q12H 7 days 10/18/24 Rx clavulanate 125 mg tablet #14 tabs Allergies Allergy/AdvReac Type Severity Reaction Status Date / Time No Known Allergies Allergy Verified 09/11/24 15:34 Vital Signs Vital Signs - 24 hr 12/20/24 13:39 12/20/24 13:40 12/20/24 13:41 Temperature Pulse Rate 103 H 104 H 104 H Respiratory Rate 17 25 H 26 H Blood Pressure 63/45 L 54/41 L Pulse Oximetry 98 98 Oxygen Delivery 12/20/24 13:44 12/20/24 13:45 12/20/24 13:46 Temperature Pulse Rate 105 H 105 H 110 H Respiratory Rate 21 H 25 H 24 H Blood Pressure 67/55 L 50/21 L Pulse Oximetry 99 Oxygen Delivery 12/20/24 13:57 12/20/24 14:33 12/20/24 15:21 Temperature 36.7 C 36.5 C Pulse Rate 101 H 79 91 Respiratory Rate 54 H 17 18 Blood Pressure 76/55 L 91/53 L 80/69 L Pulse Oximetry 97 99 Oxygen Delivery Room Air 12/20/24 15:42 12/20/24 16:06 12/20/24 16:07 Temperature 36.8 C 36.8 C Pulse Rate 91 92 Respiratory Rate 18 20 Blood Pressure 76/62 L 76/62 L Pulse Oximetry 98 100 99 Oxygen Delivery Room Air 12/20/24 16:56 12/20/24 17:38 12/20/24 17:41 Temperature 36.6 C 36.6 C 36.6 C Pulse Rate 90 86 86 Respiratory Rate 16 17 17 Blood Pressure 87/54 L 81/71 L 95/53 L Pulse Oximetry 99 100 100 Oxygen Delivery 12/20/24 18:26 12/20/24 18:29 12/20/24 18:31 Temperature 36.1 C L 36.1 C L 36.1 C L Pulse Rate 87 85 Respiratory Rate 14 16 Blood Pressure 89/57 L 88/62 L Pulse Oximetry 100 100 Oxygen Delivery 12/20/24 18:34 12/20/24 18:36 12/20/24 18:47 Temperature 36.2 C L 36.3 C L Pulse Rate 87 87 121 H Respiratory Rate 14 17 Blood Pressure 88/62 L 88/57 L 109/71 Pulse Oximetry 100 98 Oxygen Delivery 12/20/24 18:47 12/20/24 18:52 12/20/24 18:55 Temperature 36.3 C L 36.3 C L Pulse Rate 120 H 105 H 115 H Respiratory Rate 16 17 Blood Pressure 109/72 88/62 L 83/57 L Pulse Oximetry 99 100 Oxygen Delivery 12/20/24 19:05 12/20/24 19:07 12/20/24 19:07 Temperature 36.4 C L 36.4 C L Pulse Rate 89 90 101 H Respiratory Rate 14 15 Blood Pressure 73/47 L 74/48 L Pulse Oximetry 100 100 Oxygen Delivery 12/20/24 19:17 12/20/24 19:26 12/20/24 20:00 Temperature 36.4 C L 36.4 C L 36.3 C L Pulse Rate 121 H 121 H 120 H Respiratory Rate 16 16 17 Blood Pressure 101/65 92/75 L Pulse Oximetry 100 100 100 Oxygen Delivery 12/20/24 20:04 12/20/24 20:06 12/20/24 22:35 Temperature 36.3 C L 36.3 C L Pulse Rate 119 H 119 H 119 H Respiratory Rate 16 16 Blood Pressure 100/66 100/66 Pulse Oximetry 100 100 Oxygen Delivery 12/20/24 22:58 12/20/24 23:00 Temperature 36.4 C 36.5 C Pulse Rate 114 H 103 H Respiratory Rate 18 14 Blood Pressure 112/68 113/69 Pulse Oximetry 100 100 Oxygen Delivery Exam Narrative: GENERAL APPEARANCE: MALNOURISHED, CACHECTIC SKIN: PALE, COOL, DRY HEAD: NORMOCEPHALIC, NONTRAUMATIC EYES: CLEAR CONJUNCTIVA ENT: DRY ORAL CAVITY NECK: STIFF NECK CHEST AND RESPIRATORY: AIRWAY PATENT, NO RESPIRATORY DISTRESS, NO ACCESSORY MUSCLE USE HEART: REGULAR RATE/RHYTHM ABDOMEN: SOFT, NONTENDER, NO ORGANOMEGALY, QUIET BOWEL SOUNDS, FEEDING TUBE IN PLACE, DRAINAGE FROM RUQ WOUND MUSCULOSKELETAL: CONTRACTED RIGHT LOWER EXTREMITY IN HIP FLEXION POSITION, SCOLIOSIS, KYPHOSIS NEUROLOGIC: ALERT, NONVERBAL H&P: Results Labs Labs: Short CBC 12/20/24 Range/Units 14:04 WBC 16.6 H (4.5-10.0) K/mm3 Hgb 14.0 D (12.0-15.0) g/dL Hct 50.2 H (37.0-47.0) % Plt Count 289 (150-375) k/mm3 BMP 12/20/24 12/20/24 12/20/24 14:04 16:01 21:31 Sodium 168 H* 165 H* 159 H Potassium 3.1 L 2.8 L* 2.8 L* Chloride 127 H 132 H 131 H Carbon Dioxide 26 21 L 18 L BUN 91 H D 82 H 62 H D Creatinine 1.46 H 1.10 H 0.83 Glucose 233 H 205 H 265 H Calcium 9.4 7.7 L 7.0 L Liver Function 12/20/24 12/20/24 12/20/24 Range/Units 14:04 16:01 21:31 Total Bilirubin 0.8 0.6 0.6 (0.2-1.3) mg/dL AST 50 H 41 H 32 (14-36) U/L ALT 79 H 57 H 45 H (6-35) U/L Alkaline Phosphatase 115 86 78 (38-126) U/L Albumin 4.2 3.2 L 2.6 L (3.5-5.1) g/dL Urine 12/20/24 Range/Units 14:28 Urine Color Dark yellow (Yellow) Urine Appearance Cloudy H (Clear) Urine pH 5.0 (5.0-9.0) Ur Specific [place] 1.028 (1.001-1.035) Urine Protein Trace (Negative) mg/dL Urine Glucose (UA) Negative (Negative) mg/dL Pulse Oximetry SpO2 results: 98-100% on room air Attestation: I personally reviewed and interpreted this pulse oximetry as follows: Interpretation: No need for supplemental oxygenation at this time ECG Attestation: I personally reviewed and interpreted this ECG as follows: ECG completion date: 12/20/24 ECG completion time: 15:43 Prior ECG tracings: not available for review Interpretation: Sinus rhythm rate 91 [place] interval 121 QRS duration 82 QTC 453 QRS axis 73, nonspecific ST and T wave abnormality, no STEMI Imaging CT scan - head: Radiologist's impression: CT brain wo con Ordering provider: Thelma Cano MD History: 64 years Female with . AMS . Comparison: May 05, 2021 Technique: CT of the head without contrast. Radiation reduction technique utilized. The dose-length product was 1059.33 mGy-cm. FINDINGS: BRAIN PARENCHYMA AND CSF SPACES: Mild leukoaraiosis and diffuse cortical atrophy. Mild atheromatous disease. Lacunar infarcts in the right and left basal ganglia. bilateral thalamic lacunar infarcts. Old infarct in the right occipital lobe with encephalomalacia. infarcts with encephalomalacia in the left cerebellar hemisphere are noted. Lacunar infarct in the right cerebellar hemisphere. Lacunar infarct seen in the jose maria. No midline shift, mass effect or hemorrhage. The brain parenchyma and CSF spaces are otherwise normal. VISUALIZED PARANASAL SINUSES: Well aerated. MASTOIDS: Well aerated. BONES: The bones appear intact. SOFT TISSUES: Visualized nasopharynx is normal. Superficial soft tissues are normal. IMPRESSION: No acute intracranial findings. Reviewed, dictated and finalized at location A. CT scan - abdomen: Radiologist's impression: CT chest abdomen pelvis w con Ordering provider: Thelma Cano MD History: 64 years Female with . SEPSIS . Comparison: None. Technique: CT chest with IV contrast. CT abdomen and pelvis CT abdomen and pelvis with IV and with oral contrast. Radiation reduction technique utilized. The dose-length product was 300.61 mGy-cm. 80 ML Omnipaque 350 was given IV. FINDINGS: CHEST: --VISUALIZED THORACIC INLET: Nodule is seen in the right lobe of the thyroid measuring 2 x 1.4 cm. Ultrasound evaluation advised. --MEDIASTINUM: Aorta/coronary arteries: Mild atheromatous disease. Heart/other: The heart is not enlarged. Lymph nodes: No mediastinal or hilar adenopathy. 1.1 cm lymph node is seen in the paratracheal area. --LUNGS: No pulmonary nodules or masses. No effusions. No pneumothorax. Tree-in-bud appearance is seen in the right lower lobe with minimal groundglass appearance suggestive of pneumonia. Follow-up advised. Underlying emphysematous changes. --MUSCULOSKELETAL: Soft tissues: The superficial soft tissues are normal. Bones: Age appropriate degenerative changes of the spine. No suspicious bony lytic or sclerotic lesions. ABDOMEN/PELVIS: --MUSCULOSKELETAL: Bones: Loss of height of L4 is seen with compression in the superior endplate which may be acute or chronic. MRI is advised. Age appropriate degenerative changes of the spine. No suspicious bony lytic or sclerotic lesions. Superficial soft tissues: The superficial soft tissues are normal. --UPPER ABDOMINAL ORGANS: Liver: Fat infiltration. Gallbladder: Cholelithiasis. Spleen: Normal. Stomach/duodenum: Sliding hiatus hernia. Pancreas: Normal. Slightly prominent pancreatic duct. Adrenals: Normal. Kidneys: Normal. --PELVIC ORGANS: The bladder is underfilled with Marquis's catheter. No bladder stones. Fibroid uterus is seen posteriorly which measures 3.2 x 3.6 cm with calcification. Other fibroids are also seen. --BOWEL AND MESENTERY: Colon: No evidence of diverticulitis. Fluid is seen in the colon which may indicate diarrhea versus enteritis.. Appendix is not demonstrated. Small Bowel: No obstruction. Peritoneum/mesentery: No free air or free fluid. No mesenteric lymphadenopathy. --RETROPERITONEUM: Mild atheromatous disease of the abdominal aorta. Atherosclerotic changes of the iliac arteries with severe degrees of stenosis. Clinical correlation advised. No retroperitoneal lymphadenopathy. IMPRESSION: CHEST: 1. Highly suggestive of pneumonia in the right lower lobe. 2. No evidence of pulmonary embolism or dissection. ABDOMEN/PELVIS: 1. No evidence of appendicitis, diverticulitis or intestinal obstruction. 2. Fluid in the large bowel which may indicate diarrhea versus enteritis. Clinical correlation advised. 3. Multiple fibroids. 4. Compression fracture of L4 which may be acute or chronic. MRI is advised. 5. Severe atherosclerotic changes of the iliac arteries. Severe stenosis of both iliac arteries. Reviewed, dictated and finalized at location A. Chest x-ray: Radiologist's impression: CHEST RADIOGRAPH CLINICAL HISTORY: POST CENTRAL LINE . COMPARISON: 01/23/2023 TECHNIQUE: Single portable view of the chest. FINDINGS Interval placement of a right subclavian triple-lumen catheter with its tip projecting over the proximal right atrium. The right lung is fully inflated. The lungs are clear. IMPRESSION: Right subclavian central venous catheter in good position and ready for immediate use Reviewed, dictated and finalized at location A. Assessment and Plan Assessment and plan (1) Hypernatremia: Code(s): E87.0 - Hyperosmolality and hypernatremia Status: Acute Assessment and Plan: -Severe hypernatremia upon ER presentation -Sodium 168 on admit, 159 after IV fluids in ER -Admit to ICU, central line in place -NS at 50 mL/hr per Medical Assistant Instructor -G-tube present -Labor Delivery Rn consulted -Caution regarding rapid sodium shifts -Severe dehydration noted on admit (2) Septic shock: Code(s): A41.9 - Sepsis, unspecified organism; R65.21 - Severe sepsis with septic shock Status: Acute Assessment and Plan: -Elevated WBC 16.6, lactic acid 2.4, hypotension before and after fluids -Norepinephrine drip at 5 mg/min upon admit to ICU -Weaning parameters per protocol -Drainage noted from prior gallbladder drainage tube site -Blood cultures and wound culture ordered -Possible right lower lobe pneumonia on imaging -Levaquin, Flagyl, Vancomycin and Zosyn given in ER -DC Zosyn and continue others with renal dosing adjustments -Consult ID Pharmacist (3) Hypokalemia: Code(s): E87.6 - Hypokalemia Status: Acute Assessment and Plan: -Potassium 3.1 on presentation to ER, decreased to 2.8 after IV fluids in ER -IV and G-tube replacement per Medical Assistant Instructor -Recheck with morning labs (4) NATALIA (acute kidney injury): Code(s): N17.9 - Acute kidney failure, unspecified Status: Acute Assessment and Plan: -Increased Cr and BUN on admit -Hemoccult positive stool -Values improving with IV fluid administration - (5) GI (gastrointestinal bleed): Code(s): K92.2 - Gastrointestinal hemorrhage, unspecified Status: Acute Assessment and Plan: -Greenish black stool in ER, hemoccult positive -Hemoconcentrated CBC on admit -GI consulted by ER provider (6) Gastrostomy status: Code(s): Z93.1 - Gastrostomy status Status: Acute Assessment and Plan: -Medications per G-Tube per facility records -Labor Delivery Rn consulted for dietary recommendations (7) Cholecystocutaneous fistula: Code(s): K82.3 - Fistula of gallbladder Status: Acute Assessment and Plan: -Previous tube into gallbladder for acute cholecystitis, now fistula to skin with drainage present -Ordered wound culture of drainage -Most likely source of septic shock Quality VTE Prophylaxis VTE prophylaxis: pharmacologic ordered Due to a high probability of clinically significant, life threatening deterioration, the patient required my highest level of preparedness to intervene emergently and I personally spent this critical care time directly and personally managing the patient. This critical care time included obtaining a history; examining the patient; pulse oximetry; ordering and review of studies; arranging urgent treatment with development of a management plan; evaluation of patient's response to treatment; frequent reassessment; and discussions with other providers. It was exclusive of separately billable procedures and treating other patients and teaching time. Please see Assessment and Plan section and the rest of the note for further information on patient assessment and treatment. Critical Care time: 120 minutes Hospitalist MIPS Advance Care Plan I have confirmed that the patient's Advanced Care Plan is present, code status is documented, or surrogate decision maker is listed in patient medical record.: Yes Medication Reconciliation The patient is not eligible for med reconciliation; the patient is in a emergent medical situation where delaying treatment would jeopardize the patients health.: Yes
[2024-12-20] MEDS: LACTATED RINGERS 1,000 ML 50 ML IV CONT (23:46)
[2024-12-21] VITALS (25 sets, daily range): BP systolic 82–124; BP diastolic 43–78; PULSE 65–122; RESP 16–30; TEMP 36.6–38.2; O2SAT 93–100; BMI 14.8
[2024-12-21] MEDS: metroNIDAZOLE 500 MG/ISO 100ML 500 MG/100 ML BAG 100 MG IVPB (04:00)
[2024-12-21 05:40] LABS: Lactic Acid Reflex 0.7 mmol/L (0.7-2.0)
[2024-12-21 05:42] LABS: Partial Thromboplastin Time 27.7 Seconds (22.3-36.8)
[2024-12-21 05:44] LABS: Alanine Aminotransferase 43 U/L (6-35); Albumin Level 2.7 g/dL (3.5-5.1); Alkaline Phosphatase 82 U/L (38-126); Anion Gap 7 mmol/L (4-12); Aspartate Amino Transferase 31 U/L (14-36); Bilirubin,Total 0.6 mg/dL (0.2-1.3); Blood Urea Nitrogen 46 mg/dL (7-17); Calcium 7.9 mg/dL (8.4-10.2); Carbon Dioxide 17 mmol/L (22-30); Chloride 137 mmol/L (98-107); Creatine Kinase 134 U/L (30-135); Estimated CRCL calculation 45 ml/min; Estimated Glomerular Filt Rate > 60; Glucose 169 mg/dL (65-110); Magnesium 1.9 mg/dL (1.6-2.3); Phosphorus 2.4 mg/dL (2.5-4.5); Potassium 3.3 mmol/L (3.4-5.0); Sodium 161 mmol/L (137-145)
[2024-12-21 07:09] LABS: Basophils Percent Auto 0.1 % (0.2-1.2); Eosinophils Percent Auto 0.3 % (0-4.4); Hematocrit 33.3 % (37.0-47.0); Hemoglobin 9.1 g/dL (12.0-15.0); Immature Granulocyte Percent A 0.8 % (0-0.5); Lymphocytes Absolute Auto 1.47 K/mm3 (0.9-3.2); Lymphocytes Percent Auto 12.3 % (18.3-44.2); Mean Corpuscular HGB Conc 27.3 g/dl (32-36); Mean Corpuscular Hemoglobin 24.6 pg (26-34); Mean Platelet Volume 12.3 fl (7.4-10.4); Monocytes Absolute Auto 0.7 K/mm3 (0.1-0.6); Monocytes Percent Auto 5.7 % (2.6-8.5); Neutrophils Absolute Auto 9.6 K/mm3 (1.3-6.7); Neutrophils Percent Auto 80.8 % (45.5-73.1); Platelet Count Result 137 k/mm3 (150-375); Red Cell Distribution Width 15.7 % (11.5-14.5); White Blood Count 11.9 K/mm3 (4.5-10.0)
[2024-12-21 07:54] LABS: Platelet Estimate Adequate (Adequate); Schistocytes None Seen
[2024-12-21] MEDS: PANTOPRAZOLE SODIUM IV 40 MG VIAL IV PUSH ×2 (08:30→21:30)
[2024-12-21] MEDS: VANCOMYCIN 750 MG/NS 250 ML 750 MG/250 ML BAG 250 MG IVPB (08:30)
[2024-12-21] MEDS: CENTRAL LINE FLUSH 10 ML IV PUSH ×3 (08:31→21:31)
[2024-12-21 09:04] LABS: Hemoglobin A1C 6.2 % (<5.7)
--- NOTE | 2024-12-21 09:14 | P.CONIN_ITS ---
Assessment and Plan Assessment and plan (1) Septic shock: Code(s): A41.9 - Sepsis, unspecified organism; R65.21 - Severe sepsis with septic shock Status: Acute Assessment and Plan: Sepsis secondary to pneumonia, ? Questionable UTI and also dehydration Her pneumonia could be also be aspiration since she is on tube feeds Patient has received more than 3 years of IV fluid and considering of weight that is more than adequate. Continue Levophed to maintain mean arterial pressure Blood cultures and urine cultures have been sent She is currently on vancomycin Levaquin Zosyn and Flagyl. I will discontinue Flagyl Levaquin She is also being covered empirically for C diff considering she has diarrhea. I will add p.o. vancomycin. (2) Gastrostomy status: Code(s): Z93.1 - Gastrostomy status Status: Acute Assessment and Plan: Will start tube feeding today (3) Right upper quadrant abdominal abscess: Code(s): K65.1 - Peritoneal abscess Status: Acute Assessment and Plan: Patient had a cholecystostomy tube placed for cholecystitis in 2020. 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 This is a chronic issue Continue antibiotics, local wound care and open draining Patient was evaluated by General surgery 2 months ago and due to her being a poor candidate for any surgical intervention they recommended conservative management with local wound care and antibiotic. Site does not look infected as there is no redness or erythema around it (4) Acute hypernatremia: Code(s): E87.0 - Hyperosmolality and hypernatremia Status: Acute Assessment and Plan: Hypernatremia secondary to dehydration She presented with sodium of 168. She was given 2 L of saline and then 1 L of half-normal saline and sodium improved to 159. Patient was started on maintenance normal saline and her sodium is 161 Nephrology were consulted Her free water deficit is close to 1.8 L which we will try to correct over next 2 days She is getting free water flush. I was start D5 water at 40 mL/hour Q.6 hours monitoring of sodium levels and adjustment of fluid depending on the response. (5) CVA (cerebral vascular accident): Code(s): I63.9 - Cerebral infarction, unspecified Status: Acute Assessment and Plan: History of CVA. Continue aspirin and statin (6) Pneumonia: Code(s): J18.9 - Pneumonia, unspecified organism Status: Acute Assessment and Plan: See above (7) Reflux esophagitis: Qualifiers: Esophagitis bleeding: without hemorrhage Qualified Code(s): K21.00 - Gastro-esophageal reflux disease with esophagitis, without bleeding Code(s): K21.00 - Gastro-esophageal reflux disease with esophagitis, without bleeding Status: Chronic Assessment and Plan: PPI (8) Dehydration: Code(s): E86.0 - Dehydration Status: Acute Assessment and Plan: See above (9) Diarrhea: Code(s): R19.7 - Diarrhea, unspecified Status: Acute Assessment and Plan: Rule out C diff Empiric per 2 vancomycin (10) Electrolyte abnormality: Code(s): E87.8 - Other disorders of electrolyte and fluid balance, not elsewhere classified Status: Acute Assessment and Plan: Replacement of low phosphate and potassium ordered (11) Anemia: Qualifiers: Anemia type: unspecified type Qualified Code(s): D64.9 - Anemia, unspecified Code(s): D64.9 - Anemia, unspecified Status: Acute Assessment and Plan: Chronic anemia but patient presented with normal hemoglobin level likely secondary to hemoconcentration which has now gone close to baseline. Monitor Plan DVT prophylaxis -Lovenox Stress ulcer prophylaxis -PPI Nutrition -start Tube Feeds Code Status - Full Code Total Critical Care Time -40 minutes Due to a high probability of clinically significant, life threatening deterioration, the patient required my highest level of preparedness to intervene emergently and I personally spent this critical care time directly and personally managing the patient. This critical care time included obtaining a history; examining the patient; pulse oximetry; ordering and review of studies; arranging urgent treatment with development of a management plan; evaluation of patient's response to treatment; frequent reassessment; and discussions with other providers. It was exclusive of separately billable procedures and treating other patients and teaching time. Please see Assessment and Plan section and the rest of the note for further information on patient assessment and treatment Regional Facilities Manager Consult Note Consult date: 12/21/24 Reason for consult: Septic shock, dehydration HPI: Marilyn Ram is a 64 year old female patient with past medical history of CVA with residual right-sided weakness, contractures, dysphagia, aphasia, acute cholecystitis, dyslipidemia, COPD, chronic anemia who is resident of [facility] was brought to the ER yesterday with altered mental status. On arrival patient was found to be hypotensive. Her lab work showed hyper natremia. Patient was given IV fluid bolus but a blood pressure remained low hence she was started on vasopressors. She was also started on antibiotics as her workup reviewed patient had pneumonia. ICU with septic shock on vasopressor support and IV antibiotics. Head CT did not show any acute change. Nephrology was also consulted for hyponatremia. Patient had severe diarrhea on arrival that was greenish/black and hemoccult positive. During my evaluation patient is awake but does not respond to commands or provide any history. History was obtained from chart review and physician sign- out. Review of Systems 2 Review of Systems: ROS unobtainable: Yes unobtainable due to medical condition and unobtainable due to mental status PMFSH Past Medical History Medical History (Updated 12/21/24 @ 09:19 by Rob Tamayo MD) Right upper quadrant abdominal abscess History of acute cholecystitis Chronic anemia Dyslipidemia Chronic obstructive pulmonary disease Cerebrovascular accident complicated by intracranial hemorrhage with resultant right-sided weakness, dysphagia, and expressive aphasia Reflux esophagitis High cholesterol Hypertension Depression Surgical History Surgical History History of incision and drainage History of insertion of cholecystostomy tube History of gastrostomy tube placement History of esophagogastroduodenoscopy (EGD) (05/2021) Hiatal hernia and reflux esophagitis History of ankle surgery Family History Family History Other Cancer Cerebrovascular accident Diabetes mellitus Heart disease Hypertension Social History Social History Social History: Surrogate medical decision maker: Rudy Ram, debi. Code status: FULL CODE. Smoking packs per day: 0.5 Smoking cigarettes per day: 10.0 Smoking status: Unknown if ever smoked Alcohol intake: unknown Substance use: unknown Substance use type: does not use Living arrangements: custodial Additional living arrangements comments: . She has 2 sons. Additional occupation/education comments: Disabled. Spiritual care concerns: No Meds Home Medications and Allergies Home Medications ?Medication ?Instructions ?Recorded ?Confirmed ?Type aspirin 81 mg chewable tablet 81 mg feeding tube DAILY 01/16/21 12/21/24 History atorvastatin 80 mg tablet 80 mg feeding tube HS 01/16/21 12/21/24 History cholecalciferol (vitamin D3) 25 25 mcg feeding tube DAILY 01/16/21 12/21/24 History mcg (1,000 unit) capsule famotidine 20 mg tablet 20 mg feeding tube BID 01/16/21 12/21/24 History ondansetron HCl 4 mg tablet 4 mg feeding tube Q6H PRN Nausea 05/06/21 12/21/24 History (Zofran) And Vomiting Ventolin HFA 2 puff inhalation PRN PRN Wheezing 01/23/23 12/21/24 History acetaminophen 650 mg feeding tube Q4H PRN Pain 01/23/23 12/21/24 History (Scale Score 1-3)/fever ascorbic acid (vitamin C) 500 mg 500 mg feeding tube DAILY 01/23/23 12/21/24 History tablet (Vitamin C) carvedilol 6.25 mg tablet 6.25 mg feeding tube BID 01/23/23 12/21/24 History ferrous sulfate 220 mg (44 mg 330 mg feeding tube BID 01/23/23 12/21/24 History iron)/5 mL oral elixir magnesium citrate 300 ml feeding tube DAILY PRN 01/23/23 12/21/24 History Constipation bisacodyl 10 mg rectal suppository 10 mg RECTAL DAILY PRN constipation 09/11/24 12/21/24 History ezetimibe 10 mg tablet 10 mg feeding tube .every bedtime 09/11/24 12/21/24 History lisinopril 5 mg tablet 5 mg feeding tube DAILY 09/11/24 12/21/24 History silver sulfadiazine 1 % topical 1 applic topical DAILY 09/11/24 12/21/24 History cream sodium phosphates 19 gram-7 118 ml RECTAL DAILY PRN 09/11/24 12/21/24 History gram/118 mL enema (Fleet Enema) constipation Allergies Allergy/AdvReac Type Severity Reaction Status Date / Time No Known Allergies Allergy Verified 09/11/24 15:34 Vital Signs Vital Signs - 24 hr 12/20/24 13:39 12/20/24 13:40 12/20/24 13:41 Temperature Pulse Rate 103 H 104 H 104 H Respiratory Rate 17 25 H 26 H Blood Pressure 63/45 L 54/41 L Pulse Oximetry 98 98 Oxygen Delivery 12/20/24 13:44 12/20/24 13:45 12/20/24 13:46 Temperature Pulse Rate 105 H 105 H 110 H Respiratory Rate 21 H 25 H 24 H Blood Pressure 67/55 L 50/21 L Pulse Oximetry 99 Oxygen Delivery 12/20/24 13:57 12/20/24 14:33 12/20/24 15:21 Temperature 36.7 C 36.5 C Pulse Rate 101 H 79 91 Respiratory Rate 54 H 17 18 Blood Pressure 76/55 L 91/53 L 80/69 L Pulse Oximetry 97 99 Oxygen Delivery Room Air 12/20/24 15:42 12/20/24 16:06 12/20/24 16:07 Temperature 36.8 C 36.8 C Pulse Rate 91 92 Respiratory Rate 18 20 Blood Pressure 76/62 L 76/62 L Pulse Oximetry 98 100 99 Oxygen Delivery Room Air 12/20/24 16:56 12/20/24 17:38 12/20/24 17:41 Temperature 36.6 C 36.6 C 36.6 C Pulse Rate 90 86 86 Respiratory Rate 16 17 17 Blood Pressure 87/54 L 81/71 L 95/53 L Pulse Oximetry 99 100 100 Oxygen Delivery 12/20/24 18:26 12/20/24 18:29 12/20/24 18:31 Temperature 36.1 C L 36.1 C L 36.1 C L Pulse Rate 87 85 Respiratory Rate 14 16 Blood Pressure 89/57 L 88/62 L Pulse Oximetry 100 100 Oxygen Delivery 12/20/24 18:34 12/20/24 18:36 12/20/24 18:47 Temperature 36.2 C L 36.3 C L Pulse Rate 87 87 121 H Respiratory Rate 14 17 Blood Pressure 88/62 L 88/57 L 109/71 Pulse Oximetry 100 98 Oxygen Delivery 12/20/24 18:47 12/20/24 18:52 12/20/24 18:55 Temperature 36.3 C L 36.3 C L Pulse Rate 120 H 105 H 115 H Respiratory Rate 16 17 Blood Pressure 109/72 88/62 L 83/57 L Pulse Oximetry 99 100 Oxygen Delivery 12/20/24 19:05 12/20/24 19:07 12/20/24 19:07 Temperature 36.4 C L 36.4 C L Pulse Rate 89 90 101 H Respiratory Rate 14 15 Blood Pressure 73/47 L 74/48 L Pulse Oximetry 100 100 Oxygen Delivery 12/20/24 19:17 12/20/24 19:26 12/20/24 20:00 Temperature 36.4 C L 36.4 C L 36.3 C L Pulse Rate 121 H 121 H 120 H Respiratory Rate 16 16 17 Blood Pressure 101/65 92/75 L Pulse Oximetry 100 100 100 Oxygen Delivery 12/20/24 20:04 12/20/24 20:06 12/20/24 22:00 Temperature 36.3 C L 36.3 C L Pulse Rate 119 H 119 H 106 H Respiratory Rate 16 16 Blood Pressure 100/66 96/67 L Pulse Oximetry 100 100 Oxygen Delivery 12/20/24 22:35 12/20/24 22:58 12/20/24 23:00 Temperature 36.4 C 36.5 C Pulse Rate 119 H 114 H 103 H Respiratory Rate 18 14 Blood Pressure 100/66 112/68 113/69 Pulse Oximetry 100 100 Oxygen Delivery 12/21/24 00:00 12/21/24 00:00 12/21/24 00:00 Temperature Pulse Rate 106 H 106 H Respiratory Rate Blood Pressure 107/69 Pulse Oximetry Oxygen Delivery Room Air 12/21/24 02:00 12/21/24 02:00 12/21/24 02:51 Temperature 36.7 C Pulse Rate 122 H 96 90 Respiratory Rate 18 Blood Pressure 97/67 L 97/68 L Pulse Oximetry 100 Oxygen Delivery 12/21/24 04:00 12/21/24 04:00 12/21/24 04:00 Temperature 36.8 C Pulse Rate 80 80 80 Respiratory Rate 18 16 Blood Pressure 123/78 Pulse Oximetry 100 100 Oxygen Delivery Room Air 12/21/24 04:00 12/21/24 05:30 12/21/24 06:00 Temperature Pulse Rate 80 75 75 Respiratory Rate Blood Pressure 123/78 112/73 Pulse Oximetry Oxygen Delivery 12/21/24 06:00 12/21/24 06:05 12/21/24 08:00 Temperature 36.6 C 36.9 C Pulse Rate 76 76 74 Respiratory Rate 17 16 Blood Pressure 85/52 L 85/52 L 107/50 L Pulse Oximetry 100 100 Oxygen Delivery 12/21/24 08:00 12/21/24 08:00 12/21/24 08:00 Temperature Pulse Rate 74 74 Respiratory Rate Blood Pressure 107/50 L Pulse Oximetry 100 Oxygen Delivery Room Air Exam 2 Narrative: General: Pt is malnourished cachectic old frail female who is not in any distress and is not communicated Lungs/Chest: Trachea central Clear BS B/L, No crackles or wheezing. Cardiac: RRR. Normal S1 S2. No murmurs Circulation: Pedal pulses are intact and symmetrical. Abdomen: Normal bowel sounds.. Soft. NT. ND. There is a fistula/wound on the abdominal wall and right upper quadrant with minimal amount of clear drainage under the dressing. There is a PEG tube in place Extremities: No clubbing, cyanosis or edema. Warm : Marquis in place Neurologic: Pupils are unequal but both reactive to light left is bigger than right, dysconjugate gaze, she moves all 4 extremities but left more than right, does not follow command, does not answer any course, does not exhibit purposeful movement, she has contractures of right upper and right lower extremities, right lower extremities contracture did flexion position at the hip Skin: No Rash Results Labs 12/21/24 06:58 12/21/24 04:55 Labs: Impressions Head CT 12/20/24 16:30 IMPRESSION: No acute intracranial findings. Chest/Abdomen/Pelvis CT 12/20/24 16:42 IMPRESSION: CHEST: 1. Highly suggestive of pneumonia in the right lower lobe. 2. No evidence of pulmonary embolism or dissection. ABDOMEN/PELVIS: 1. No evidence of appendicitis, diverticulitis or intestinal obstruction. 2. Fluid in the large bowel which may indicate diarrhea versus enteritis. Clinical correlation advised. 3. Multiple fibroids. 4. Compression fracture of L4 which may be acute or chronic. MRI is advised. 5. Severe atherosclerotic changes of the iliac arteries. Severe stenosis of both iliac arteries. Chest X-Ray 12/20/24 17:34 IMPRESSION: Right subclavian central venous catheter in good position and ready for immediate use Short CBC 12/20/24 12/21/24 Range/Units 14:04 06:58 WBC 16.6 H 11.9 H (4.5-10.0) K/mm3 Hgb 14.0 D 9.1 L D (12.0-15.0) g/dL Hct 50.2 H 33.3 L (37.0-47.0) % Plt Count 289 137 L D (150-375) k/mm3 BMP 12/20/24 12/20/24 12/20/24 14:04 16:01 21:31 Sodium 168 H* 165 H* 159 H Potassium 3.1 L 2.8 L* 2.8 L* Chloride 127 H 132 H 131 H Carbon Dioxide 26 21 L 18 L BUN 91 H D 82 H 62 H D Creatinine 1.46 H 1.10 H 0.83 Glucose 233 H 205 H 265 H Calcium 9.4 7.7 L 7.0 L 12/21/24 04:55 Sodium 161 H* Potassium 3.3 L Chloride 137 H Carbon Dioxide 17 L BUN 46 H D Creatinine 0.64 L Glucose 169 H Calcium 7.9 L Cardiac Enzymes 12/21/24 Range/Units 04:55 Total Creatine Kinase 134 (30-135) U/L Liver Function 12/20/24 12/20/24 12/20/24 Range/Units 14:04 16:01 21:31 Total Bilirubin 0.8 0.6 0.6 (0.2-1.3) mg/dL AST 50 H 41 H 32 (14-36) U/L ALT 79 H 57 H 45 H (6-35) U/L Alkaline Phosphatase 115 86 78 (38-126) U/L Albumin 4.2 3.2 L 2.6 L (3.5-5.1) g/dL 12/21/24 Range/Units 04:55 Total Bilirubin 0.6 (0.2-1.3) mg/dL AST 31 (14-36) U/L ALT 43 H (6-35) U/L Alkaline Phosphatase 82 (38-126) U/L Albumin 2.7 L (3.5-5.1) g/dL Urine 12/20/24 Range/Units 14:28 Urine Color Dark yellow (Yellow) Urine Appearance Cloudy H (Clear) Urine pH 5.0 (5.0-9.0) Ur Specific [place] 1.028 (1.001-1.035) Urine Protein Trace (Negative) mg/dL Urine Glucose (UA) Negative (Negative) mg/dL Quality VTE Prophylaxis VTE prophylaxis: mechanical ordered and pharmacologic ordered Hospitalist MIPS Advance Care Plan I have confirmed that the patient's Advanced Care Plan is present, code status is documented, or surrogate decision maker is listed in patient medical record.: Yes Medication Reconciliation I have utilized all available resources to obtain, update and review the patients current medications (includes all prescriptions, OTC, herbals, cannabis, and nutritional supplements).: Yes
[2024-12-21 10:23] LABS: Procalcitonin 0.1 ng/mL
[2024-12-21] MEDS: POTASSIUM BICARBONATE 25 MEQ TABEF 50 MEQ FEED TUBE (10:25)
[2024-12-21] MEDS: CALCIUM GLUC 2,000 MG/NS 100ML 2,000 MG/100 ML BAG 100 MG IVPB (10:26)
[2024-12-21] MEDS: DEXTROSE 5% 1,000 ML 1,000 ML 40 ML IV CONT (10:26)
[2024-12-21] MEDS: POTASSIUM PHOS,M-BASIC-D-BASIC 20 MMOL in SODIUM CHLORIDE 0.9% IV 250 ML 64.17 MMOL IVPB (10:33)
[2024-12-21] MEDS: CHOLECALCIFEROL 1,000 UNITS TABLET 1000 UNITS FEED TUBE (10:34)
[2024-12-21] MEDS: ASCORBIC ACID 500 MG TABLET FEED TUBE (10:34)
[2024-12-21] MEDS: SILVER SULFADIAZINE 1% CR 400 GM JAR (*BKC) 1 APPLIC TOPICAL (10:34)
[2024-12-21] MEDS: PIPERACILLN/TAZ 3.375GM/NS50ML 3.375 GM/50 ML BAG IVPB ×3 (10:34→21:30)
[2024-12-21] MEDS: ASPIRIN 81 MG CHEWABLE TABLET FEED TUBE (10:34)
[2024-12-21 11:42] LABS: Toxigenic C. Diff POSITIVE (NEGATIVE)
[2024-12-21] MEDS: VANCOMYCIN ORAL 125 MG/2.5 ML SYRUP FEED TUBE ×3 (12:42→23:28)
--- NOTE | 2024-12-21 12:43 | P.CDI_ITS ---
CDI Query Clarification Request BMI: 14.8 Nutritional Diagnostic Statement: Please refer to the comprehensive nutrition assessment for further information. If you agree with diagnosis of Severe Protein Calorie Malnutrition as related to inadequate protein energy intake as related to significant weight loss of 17 ibs in 3 months, severe subcutaneous fat loss as noted and severe muscle wasting as noted in NFPE. Please specify severity if known: * Mild * Moderate * Severe * Other/Unknown <Nury Orosco RN - Last Filed: 12/21/24 12:43> Clarified Diagnosis Clarified Diagnosis: Severe <Donny Frazier MD - Last Filed: 12/21/24 17:53>
[2024-12-21 12:50] LABS: Anion Gap 7 mmol/L (4-12); Blood Urea Nitrogen 32 mg/dL (7-17); Carbon Dioxide 20 mmol/L (22-30); Chloride 132 mmol/L (98-107); Estimated CRCL calculation 53 ml/min; Estimated Glomerular Filt Rate > 60; Glucose 162 mg/dL (65-110); Potassium 4.3 mmol/L (3.4-5.0); Sodium 159 mmol/L (137-145)
--- NOTE | 2024-12-21 12:55 | P.CONNP_ITS ---
Assessment and Plan Assessment and plan (1) Hypernatremia: Code(s): E87.0 - Hyperosmolality and hypernatremia Status: Acute Assessment and Plan: * suspect due significant free water deficit secondary to: * prerenal factors * insensible losses * diarrhea * infection (pneumiona +/- UTI) * inadequate free water administration at her nursing facility (?) * other (?) * s/p aggressive IVF resuscitation in ER * resumed on free water flushes - slowly titrate s needed * retirement records indicate she was on FWF of 250cc q4hr * also started on D5W IVFs at 40cc/hr as well * however, also getting some D5W with IV medications/piggyback (levophed gtt, IV magnesium...etc) * if sodium fails to improve, will order further testing looking for other causes (i.e. DI) * follow serial sodium levels (2) Septic shock: Code(s): A41.9 - Sepsis, unspecified organism; R65.21 - Severe sepsis with septic shock Status: Acute Assessment and Plan: * secondary to pneumonia +/- UTI along with C. diff colitis * aspiration pneumonia given location (RLL) and on tube feeds(?) * s/p aggressive IVF resuscitation * on vasopressor therapy to maintain MAP/blood pressure * follow culture data * on antibiotic therapy * follow trend of hemodynamics (3) Pneumonia: Code(s): J18.9 - Pneumonia, unspecified organism Status: Acute Assessment and Plan: * as noted by admission imaging * respiratory status relatively stable * on antibiotic therapy (4) Clostridium difficile colitis: Code(s): A04.72 - Enterocolitis due to Clostridium difficile, not specified as recurrent Status: Acute Assessment and Plan: * C. diff toxin assay positive * noted history of diarrhea since admission * on oral vancomycin (5) Hypokalemia: Code(s): E87.6 - Hypokalemia Status: Acute Assessment and Plan: * suspect due to GI loss (diarrhea) * replete/replace as needed * follow magnesium as well (6) Hypophosphatemia: Code(s): E83.39 - Other disorders of phosphorus metabolism Status: Acute Assessment and Plan: * suspect due to GI loss/diarrhea * continue replacement as needed (7) Anemia: Qualifiers: Anemia type: unspecified type Qualified Code(s): D64.9 - Anemia, unspecified Code(s): D64.9 - Anemia, unspecified Status: Acute Assessment and Plan: * admission creatinine likely hemoconcentrated * drop in H/H presumably due to volume resuscitation * follow trend of H/H (8) Right upper quadrant abdominal abscess: Code(s): K65.1 - Peritoneal abscess Status: Acute Assessment and Plan: * noted history of cholecystostomy tube placed for cholecystitis in 2020 * tube was eventually removed but she developed a fistula abdominal wall abscess which has not completely healed * she did had incision and drainage at that time * continue local wound care I will continue to follow the patient with you while she remains hospitalized and make further recommendations as deemed necessary. Thank you for allowing me to participate in the care of this patient. L History of Present Illness Reason for Consult Consult date: 12/21/24 Reason for consult: hypernatremia Chief Complaint Chief complaint: Sepsis with Hypotension, hypokalemia, Hypernatremi History of Present Illness Narrative: All the information that I have obtained is from review of the electronic medical records, accompaning nursing facility documentation/records, and discussion with the physicians/nurses involved in the patient's care as well as the discussion with the ER physician yesterday as the patient is unable to provide any history at this time. The patient is a 64-year-old female with extensive past medical history as outlined below who presented to [facility] Emergency Room from her nursing facility due to altered mental status. According to retirement records, the patient has aphasia secondary to her previous CVA but is reportedly able to answer yes/no questions appropriately at baseline by nodding her head, follow simple commands, and is responsive to her name. However, this apparently has changed as currently she is opening her eyes but does not answer any questions or turn her head when her name is called. is not entirely clear exactly how long this change in her mentation occurred prior to calling EMS and subsequent transfer to the ER for further assessment.EMS documentation note blood pressure in the 100 systolic and blood sugar 211 on their arrival. On presentation to the emergency room, the patient was quite hypotensive with a systolic BP in the 60s which was confirmed by several manual blood pressure readings. She was noted be soiled and covered with liquid diarrhea on arrival as well. Her diarrhea was apparently greenish/blackish in color and was later to be discovered to be hemoccult positive. She was subsequently cleaned up and had 2 IVs placed and was started on aggressive IV fluid resuscitation. She apparently had another episode of liquid diarrhea and once again had to be cleaned by nursing staff. Routine blood test demonstrated significant hypernatremia but with normal renal function . Her CBC showed elevated white blood cell count otherwise normal hemoglobin and platelet count. Unfortunately, her blood pressure remained low despite aggressive IV fluid resuscitation (approximately 3 L IV fluids) and she subsequently had a central line placed and was initiated on vasopressor therapy. Subsequent imaging included a CT scan of the head which did not demonstrate any acute intracranial pathology and a CT scan of the chest/abdomen/pelvis which was significant for a right lower lobe pneumonia and fluid in the large bowels suggestive of diarrhea and/or enteritis. In spite of her presumed sepsis, she was able to maintain her airway and good oxygen saturations while she was in the emergency room. After appropriate cultures were obtained, she was initiated on IV antibiotics and continue on vasopressors and was subsequently admitted to the intensive care unit further evaluation therapy. Since her admission to the ICU, her sodium level has improved to some degree with the aggressive IV fluid resuscitation that she has received and she is recently been switched to D5W IV fluids and initiated on free water flushes via her G-tube. She has subsequently been discovered to be C diff toxin assay positive as well and started on appropriate therapy. Renal consultation was requested due to her significant hypernatremia. On admission, her sodium level was as high as 168mmol/L and with aggressive IV fluid resuscitation in the emergency room and overnight, her sodium level has come down to around 159mmol/L by recent testing. As already mentioned above, she has been initiated on free water flushes as well as D5W IV fluids to correct her significant free water deficit. Unfortunately, I have no previous sodium levels to compare to other than what was done on previous ER visits which show that her sodium level appears to the run normal at baseline. Her retirement records indicate that she usually gets 250 cc free water flushes every 4 hours at baseline. I suspect her insensible losses from her diarrhea presumably secondary to C diff colitis probably resulted in the significant free water deficit as noted on admission to the hospital. I suppose it is possible that maybe she was not getting all of her free water flushes at her nursing facility as well which may have further complicated matters. Currently, at the time my evaluation, the patient is awake but nonverbal but in no apparent distress. Patient has chronic cholecystitis with cholecystocutaneous fistula that is found to have purulent drainage. 64 year old female patient with past medical history of CVA with residual right-sided weakness, contractures, dysphagia, aphasia, acute cholecystitis, dyslipidemia, COPD, chronic anemia who is resident of local nursing facility was brought to the ER yesterday with altered mental status. On Review of Systems 2 Review of Systems: As per HPI. [facility] Past Medical History Medical History (Updated 12/24/24 @ 10:26 by Hong Monsivais MD) History of acute cholecystitis Chronic anemia Dyslipidemia Right upper quadrant abdominal abscess Chronic obstructive pulmonary disease Cerebrovascular accident complicated by intracranial hemorrhage with resultant right-sided weakness, dysphagia, and expressive aphasia Reflux esophagitis High cholesterol Hypertension Depression Surgical History Surgical History History of incision and drainage History of insertion of cholecystostomy tube History of gastrostomy tube placement History of esophagogastroduodenoscopy (EGD) (05/2021) Hiatal hernia and reflux esophagitis History of ankle surgery Family History Family History Other Cancer Cerebrovascular accident Diabetes mellitus Heart disease Hypertension Social History Social History Social History: Surrogate medical decision maker: Rudy Ram, son. Code status: FULL CODE. Smoking packs per day: 0.5 Smoking cigarettes per day: 10.0 Smoking status: Unknown if ever smoked Alcohol intake: unknown Substance use: unknown Substance use type: does not use Living arrangements: retirement Additional living arrangements comments: . She has 2 sons. Additional occupation/education comments: Disabled. Spiritual care concerns: No Meds Home Medications and Allergies Home Medications ?Medication ?Instructions ?Recorded ?Confirmed ?Type aspirin 81 mg chewable tablet 81 mg feeding tube DAILY 01/16/21 12/21/24 History atorvastatin 80 mg tablet 80 mg feeding tube HS 01/16/21 12/21/24 History cholecalciferol (vitamin D3) 25 25 mcg feeding tube DAILY 01/16/21 12/21/24 History mcg (1,000 unit) capsule famotidine 20 mg tablet 20 mg feeding tube BID 01/16/21 12/21/24 History ondansetron HCl 4 mg tablet 4 mg feeding tube Q6H PRN Nausea 05/06/21 12/21/24 History (Zofran) And Vomiting Ventolin HFA 2 puff inhalation PRN PRN Wheezing 01/23/23 12/21/24 History acetaminophen 650 mg feeding tube Q4H PRN Pain 01/23/23 12/21/24 History (Scale Score 1-3)/fever ascorbic acid (vitamin C) 500 mg 500 mg feeding tube DAILY 01/23/23 12/21/24 History tablet (Vitamin C) carvedilol 6.25 mg tablet 6.25 mg feeding tube BID 01/23/23 12/21/24 History ferrous sulfate 220 mg (44 mg 330 mg feeding tube BID 01/23/23 12/21/24 History iron)/5 mL oral elixir magnesium citrate 300 ml feeding tube DAILY PRN 01/23/23 12/21/24 History Constipation bisacodyl 10 mg rectal suppository 10 mg RECTAL DAILY PRN constipation 09/11/24 12/21/24 History ezetimibe 10 mg tablet 10 mg feeding tube .every bedtime 09/11/24 12/21/24 History lisinopril 5 mg tablet 5 mg feeding tube DAILY 09/11/24 12/21/24 History silver sulfadiazine 1 % topical 1 applic topical DAILY 09/11/24 12/21/24 History cream sodium phosphates 19 gram-7 118 ml RECTAL DAILY PRN 09/11/24 12/21/24 History gram/118 mL enema (Fleet Enema) constipation Allergies Allergy/AdvReac Type Severity Reaction Status Date / Time No Known Allergies Allergy Verified 09/11/24 15:34 Vital Signs Vital Signs Temp Pulse Resp BP Pulse Ox O2 Del Method 12/21/24 10:00 98.4 F 79 30 H 108/54 L 100 12/21/24 10:00 79 12/21/24 08:00 74 12/21/24 08:00 100 Room Air 12/21/24 08:00 74 107/50 L 12/21/24 08:00 98.4 F 74 16 107/50 L 100 12/21/24 06:05 76 85/52 L 05/22/25 06:00 98 F 76 17 85/52 L 100 12/21/24 06:00 75 12/21/24 05:30 75 112/73 12/21/24 04:00 80 123/78 12/21/24 04:00 98.2 F 80 16 123/78 100 12/21/24 04:00 80 12/21/24 04:00 80 18 100 Room Air 12/21/24 02:51 98.0 F 90 18 97/68 L 100 12/21/24 02:00 96 97/67 L 12/21/24 02:00 122 H 12/21/24 00:00 106 H 12/21/24 00:00 106 H 107/69 12/21/24 00:00 Room Air 12/20/24 23:00 97.7 F 103 H 14 113/69 100 12/20/24 22:58 97.6 F 114 H 18 112/68 100 12/20/24 22:35 119 H 100/66 12/20/24 22:00 106 H 96/67 L 12/20/24 20:06 97.4 F L 119 H 16 100/66 100 12/20/24 20:04 97.4 F L 119 H 16 100 12/20/24 20:00 97.4 F L 120 H 17 92/75 L 100 12/20/24 19:26 97.5 F L 121 H 16 101/65 100 12/20/24 19:17 97.5 F L 121 H 16 100 12/20/24 19:07 97.5 F L 101 H 15 100 12/20/24 19:07 90 74/48 L 12/20/24 19:05 97.5 F L 89 14 73/47 L 100 12/20/24 18:55 97.4 F L 115 H 17 83/57 L 100 12/20/24 18:52 97.3 F L 105 H 16 88/62 L 99 12/20/24 18:47 120 H 109/72 12/20/24 18:47 97.3 F L 121 H 17 109/71 98 12/20/24 18:36 97.1 F L 87 14 88/57 L 100 12/20/24 18:34 87 88/62 L 12/20/24 18:31 97.0 F L 85 16 88/62 L 100 12/20/24 18:29 96.9 F L 12/20/24 18:26 96.9 F L 87 14 89/57 L 100 12/20/24 17:41 97.8 F 86 17 95/53 L 100 12/20/24 17:38 98 F 86 17 81/71 L 100 12/20/24 16:56 97.9 F 90 16 87/54 L 99 12/20/24 16:07 98.3 F 92 20 76/62 L 99 12/20/24 16:06 98.3 F 91 18 76/62 L 100 12/20/24 15:42 98 Room Air 12/20/24 15:21 97.7 F 91 18 80/69 L 99 12/20/24 14:33 98.1 F 79 17 91/53 L 97 Room Air 12/20/24 13:57 101 H 54 H 76/55 L 12/20/24 13:46 110 H 24 H 50/21 L 12/20/24 13:45 105 H 25 H 99 12/20/24 13:44 105 H 21 H 67/55 L 12/20/24 13:41 104 H 26 H 54/41 L 98 12/20/24 13:40 104 H 25 H 63/45 L 98 12/20/24 13:39 103 H 17 Exam 2 Narrative: GENERAL APPEARANCE: cachectic ill appearing female in no acute distress HEENT: normocephalic, atraumatic, normal conjunctiva and sclera, nares patient NECK: no lymphadenopathy, thyromegaly, or JVD MOUTH: normal lips, teeth, and gums CARDIOVASCULAR: RRR, normal S1 and S2, no rub RESPIRATORY: clear anteriorly; decreased at right base ABDOMEN: soft, nontender, nondistended, positive bowel sounds present; +G tube; fistula/wound in RUQ with dressing in place EXTREMITIES: no evidence of cyanosis, clubbing, or edema NEUROLOGICAL: non-verbal/noncommunicative; not following commands; +contractures on right UE/LE Results Lab Results 12/24/24 05:49 12/24/24 05:49 Lab results: Most recent lab results Calcium 9.0 mg/dL (8.4-10.2) 12/21/24 12:23 Phosphorus 2.4 mg/dL (2.5-4.5) L 12/21/24 04:55 Magnesium 1.9 mg/dL (1.6-2.3) 12/21/24 04:55
--- NOTE | 2024-12-21 17:52 | PM.IMPN ---
Progress Note: A&P Assessment and Plan (1) Septic shock: Code(s): A41.9 - Sepsis, unspecified organism; R65.21 - Severe sepsis with septic shock Status: Acute Assessment and Plan: Sepsis secondary to pneumonia, ? Questionable UTI and also dehydration Her pneumonia could be also be aspiration since she is on tube feeds Patient has received more than 3 years of IV fluid and considering of weight that is more than adequate. Continue Levophed to maintain mean arterial pressure Blood cultures and urine cultures have been sent She is currently on vancomycin Levaquin Zosyn and Flagyl. I will discontinue Flagyl Levaquin She is also being covered empirically for C diff considering she has diarrhea. I will add p.o. vancomycin. (2) Gastrostomy status: Code(s): Z93.1 - Gastrostomy status Status: Acute Assessment and Plan: Will start tube feeding today (3) Right upper quadrant abdominal abscess: Code(s): K65.1 - Peritoneal abscess Status: Acute Assessment and Plan: Patient had a cholecystostomy tube placed for cholecystitis in 2020. 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 This is a chronic issue Continue antibiotics, local wound care and open draining Patient was evaluated by General surgery 2 months ago and due to her being a poor candidate for any surgical intervention they recommended conservative management with local wound care and antibiotic. Site does not look infected as there is no redness or erythema around it (4) Acute hypernatremia: Code(s): E87.0 - Hyperosmolality and hypernatremia Status: Acute Assessment and Plan: Hypernatremia secondary to dehydration She presented with sodium of 168. She was given 2 L of saline and then 1 L of half-normal saline and sodium improved to 159. Patient was started on maintenance normal saline and her sodium is 161 Nephrology were consulted Her free water deficit is close to 1.8 L which we will try to correct over next 2 days She is getting free water flush. I was start D5 water at 40 mL/hour Q.6 hours monitoring of sodium levels and adjustment of fluid depending on the response. (5) CVA (cerebral vascular accident): Code(s): I63.9 - Cerebral infarction, unspecified Status: Acute Assessment and Plan: History of CVA. Continue aspirin and statin (6) Pneumonia: Code(s): J18.9 - Pneumonia, unspecified organism Status: Acute Assessment and Plan: See above (7) Reflux esophagitis: Qualifiers: Esophagitis bleeding: without hemorrhage Qualified Code(s): K21.00 - Gastro-esophageal reflux disease with esophagitis, without bleeding Code(s): K21.00 - Gastro-esophageal reflux disease with esophagitis, without bleeding Status: Chronic Assessment and Plan: PPI (8) Dehydration: Code(s): E86.0 - Dehydration Status: Acute Assessment and Plan: See above (9) Diarrhea: Code(s): R19.7 - Diarrhea, unspecified Status: Acute Assessment and Plan: Rule out C diff Empiric per 2 vancomycin (10) Electrolyte abnormality: Code(s): E87.8 - Other disorders of electrolyte and fluid balance, not elsewhere classified Status: Acute Assessment and Plan: Replacement of low phosphate and potassium ordered (11) Anemia: Qualifiers: Anemia type: unspecified type Qualified Code(s): D64.9 - Anemia, unspecified Code(s): D64.9 - Anemia, unspecified Status: Acute Assessment and Plan: Chronic anemia but patient presented with normal hemoglobin level likely secondary to hemoconcentration which has now gone close to baseline. Monitor Subjective Date/time seen: 12/21/24 17:52 Interval history: Patient is nonverbal. Patient currently on Levophed. Patient is positive for C diff. Review of Systems Review of Systems: ROS unobtainable: Yes unobtainable due to medical condition and unobtainable due to mental status Exam Narrative: General: Pt is malnourished cachectic old frail female who is not in any distress and is not communicated Lungs/Chest: Trachea central Clear BS B/L, No crackles or wheezing. Cardiac: RRR. Normal S1 S2. No murmurs Circulation: Pedal pulses are intact and symmetrical. Abdomen: Normal bowel sounds.. Soft. NT. ND. There is a fistula/wound on the abdominal wall and right upper quadrant with minimal amount of clear drainage under the dressing. There is a PEG tube in place Extremities: No clubbing, cyanosis or edema. Warm : Marquis in place Neurologic: Pupils are unequal but both reactive to light left is bigger than right, dysconjugate gaze, she moves all 4 extremities but left more than right, does not follow command, does not answer any course, does not exhibit purposeful movement, she has contractures of right upper and right lower extremities, right lower extremities contracture did flexion position at the hip Skin: No Rash Objective Data Vital Signs Vital Signs: Vital Signs - 24 hr 12/20/24 18:26 12/20/24 18:29 12/20/24 18:31 Temperature 96.9 F L 96.9 F L 97.0 F L Pulse Rate 87 85 Respiratory Rate 14 16 Blood Pressure 89/57 L 88/62 L Pulse Oximetry 100 100 Oxygen Delivery 12/20/24 18:34 12/20/24 18:36 12/20/24 18:47 Temperature 97.1 F L 97.3 F L Pulse Rate 87 87 121 H Respiratory Rate 14 17 Blood Pressure 88/62 L 88/57 L 109/71 Pulse Oximetry 100 98 Oxygen Delivery 12/20/24 18:47 12/20/24 18:52 12/20/24 18:55 Temperature 97.3 F L 97.4 F L Pulse Rate 120 H 105 H 115 H Respiratory Rate 16 17 Blood Pressure 109/72 88/62 L 83/57 L Pulse Oximetry 99 100 Oxygen Delivery 12/20/24 19:05 12/20/24 19:07 12/20/24 19:07 Temperature 97.5 F L 97.5 F L Pulse Rate 89 90 101 H Respiratory Rate 14 15 Blood Pressure 73/47 L 74/48 L Pulse Oximetry 100 100 Oxygen Delivery 12/20/24 19:17 12/20/24 19:26 12/20/24 20:00 Temperature 97.5 F L 97.5 F L 97.4 F L Pulse Rate 121 H 121 H 120 H Respiratory Rate 16 16 17 Blood Pressure 101/65 92/75 L Pulse Oximetry 100 100 100 Oxygen Delivery 12/20/24 20:04 12/20/24 20:06 12/20/24 22:00 Temperature 97.4 F L 97.4 F L Pulse Rate 119 H 119 H 106 H Respiratory Rate 16 16 Blood Pressure 100/66 96/67 L Pulse Oximetry 100 100 Oxygen Delivery 12/20/24 22:35 12/20/24 22:58 12/20/24 23:00 Temperature 97.6 F 97.7 F Pulse Rate 119 H 114 H 103 H Respiratory Rate 18 14 Blood Pressure 100/66 112/68 113/69 Pulse Oximetry 100 100 Oxygen Delivery 12/21/24 00:00 12/21/24 00:00 12/21/24 00:00 Temperature Pulse Rate 106 H 106 H Respiratory Rate Blood Pressure 107/69 Pulse Oximetry Oxygen Delivery Room Air 12/21/24 02:00 12/21/24 02:00 12/21/24 02:51 Temperature 98.0 F Pulse Rate 122 H 96 90 Respiratory Rate 18 Blood Pressure 97/67 L 97/68 L Pulse Oximetry 100 Oxygen Delivery 12/21/24 04:00 12/21/24 04:00 12/21/24 04:00 Temperature 98.2 F Pulse Rate 80 80 80 Respiratory Rate 18 16 Blood Pressure 123/78 Pulse Oximetry 100 100 Oxygen Delivery Room Air 12/21/24 04:00 12/21/24 05:30 12/21/24 06:00 Temperature Pulse Rate 80 75 75 Respiratory Rate Blood Pressure 123/78 112/73 Pulse Oximetry Oxygen Delivery 12/21/24 06:00 12/21/24 06:05 12/21/24 08:00 Temperature 98 F 98.4 F Pulse Rate 76 76 74 Respiratory Rate 17 16 Blood Pressure 85/52 L 85/52 L 107/50 L Pulse Oximetry 100 100 Oxygen Delivery 12/21/24 08:00 12/21/24 08:00 12/21/24 08:00 Temperature Pulse Rate 74 74 Respiratory Rate Blood Pressure 107/50 L Pulse Oximetry 100 Oxygen Delivery Room Air 12/21/24 10:00 12/21/24 10:00 12/21/24 10:30 Temperature 98.4 F Pulse Rate 79 79 90 Respiratory Rate 30 H Blood Pressure 108/54 L 124/63 Pulse Oximetry 100 Oxygen Delivery 12/21/24 12:00 12/21/24 12:00 12/21/24 12:00 Temperature 98.0 F Pulse Rate 77 68 Respiratory Rate 16 Blood Pressure 96/65 L Pulse Oximetry 100 100 Oxygen Delivery Room Air 12/21/24 13:25 12/21/24 14:00 12/21/24 14:00 Temperature 98.6 F Pulse Rate 73 66 66 Respiratory Rate 20 Blood Pressure 87/45 L 87/59 L Pulse Oximetry 98 Oxygen Delivery 12/21/24 14:05 12/21/24 16:00 12/21/24 17:30 Temperature Pulse Rate 65 93 91 Respiratory Rate Blood Pressure 87/59 L 98/59 L 101/71 Pulse Oximetry Oxygen Delivery Intake/Output Intake/Output: Intake & Output 12/18/24 12/19/24 12/20/24 12/21/24 23:59 23:59 23:59 23:59 Intake Total 3949 714.9 Output Total 225 400 Balance 3724 314.9 Meds/Results Medications: Active Medications Generic Name Dose Route Start Last Admin Trade Name Freq PRN Reason Stop Dose Admin Acetaminophen 650 mg 12/21/24 09:45 Acetaminophen Elixir 325 Mg/10.15 Ml Udc FEED TUBE Q4H PRN Pain (Scale Score 1-3)/fever Albuterol 2 puff 12/21/24 09:46 Albuterol Sulfate (*Sp) Aerosol 1 Puff INHALATION PRN PRN Wheezing Ascorbic Acid 500 mg 12/21/24 09:50 12/21/24 10:34 Ascorbic Acid 500 Mg Tablet FEED TUBE 500 mg DAILY SANDRA Administration Aspirin 81 mg 12/21/24 09:50 12/21/24 10:34 Aspirin 81 Mg Chewable Tablet FEED TUBE 81 mg DAILY SANDRA Administration Atorvastatin Calcium 80 mg 12/21/24 21:00 Atorvastatin 40 Mg Tablet FEED TUBE HS SANDRA Bisacodyl 10 mg 12/21/24 09:40 Bisacodyl 10 Mg Suppository RECTAL DAILY PRN constipation Ezetimibe 10 mg 12/21/24 21:00 Ezetimibe 10 Mg Tablet FEED TUBE HS SANDRA Vancomycin HCl 750 mg in 250 mls @ 250 mls/hr 12/21/24 09:00 12/21/24 09:33 Vancomycin 750 Mg/Ns 250 Ml IVPB Infused Q24H SANDRA Infusion Dextrose 1,000 mls @ 50 mls/hr 12/21/24 08:50 12/21/24 13:30 Dextrose 5% 1,000 Ml IV CONT 50 mls/hr .Q20H SANDRA Infusion Piperacillin/Tazobactam/Dextrose 3.375 gm in 50 mls @ 100 mls/hr 12/21/24 10:00 12/21/24 17:36 Zosyn 3.375 Gm/Ns 50 Ml IVPB 100 mls/hr Q6H SANDRA Administration Magnesium Citrate 300 ml 12/21/24 09:40 Magnesium Citrate 300 Ml Btl FEED TUBE DAILY PRN Constipation Pantoprazole Sodium 40 mg 05/22/25 21:00 Pantoprazole Sodium Iv 40 Mg Vial IV PUSH Q12HR SANDRA Silver Sulfadiazine 1 applic 12/21/24 09:50 12/21/24 10:34 Silver Sulfadiazine 1% Cr 400 Gm Jar (*Bkc) TOPICAL 1 applic DAILY SANDRA Administration Sodium Chloride 10 ml 12/20/24 22:00 12/21/24 13:42 Central Line Flush IV PUSH 10 ml Q8HR SANDRA Administration Sodium Chloride 20 ml 12/20/24 17:15 Central Line Flush IV PUSH PRN PRN after blood draws Vancomycin HCl 125 mg 12/21/24 12:00 12/21/24 17:37 Vancomycin Oral 125 Mg/2.5 Ml Syrup FEED TUBE 125 mg Q6HR SANDRA Administration Vitamin D 1,000 units 12/21/24 09:50 12/21/24 10:34 Cholecalciferol 1,000 Units Tablet FEED TUBE 1,000 units DAILY SANDRA Administration Radiology Results: ITS Impressions Head CT 12/20/24 16:30 IMPRESSION: No acute intracranial findings. Chest/Abdomen/Pelvis CT 12/20/24 16:42 IMPRESSION: CHEST: 1. Highly suggestive of pneumonia in the right lower lobe. 2. No evidence of pulmonary embolism or dissection. ABDOMEN/PELVIS: 1. No evidence of appendicitis, diverticulitis or intestinal obstruction. 2. Fluid in the large bowel which may indicate diarrhea versus enteritis. Clinical correlation advised. 3. Multiple fibroids. 4. Compression fracture of L4 which may be acute or chronic. MRI is advised. 5. Severe atherosclerotic changes of the iliac arteries. Severe stenosis of both iliac arteries. Chest X-Ray 12/20/24 17:34 IMPRESSION: Right subclavian central venous catheter in good position and ready for immediate use Labs Labs: Laboratory Results - last 24 hr 12/20/24 12/21/24 12/21/24 21:31 04:55 06:58 WBC 11.9 H RBC 3.70 L Hgb 9.1 L D Hct 33.3 L MCV 90.0 MCH 24.6 L MCHC 27.3 L RDW 15.7 H Plt Count 137 L D MPV 12.3 H Immature Gran % (Auto) 0.8 H Neut % (Auto) 80.8 H Lymph % (Auto) 12.3 L Davie % (Auto) 5.7 Eos % (Auto) 0.3 Baso % (Auto) 0.1 L Lymph # (Auto) 1.47 Davie # (Auto) 0.7 H Eos # (Auto) 0.0 Baso # (Auto) 0.0 Abs Immat Gran (auto) 0.10 H Absolute Neuts (auto) 9.6 H Absolute Nucleated RBC 0.000 Band Neutrophils % Not Reportable Nucleated RBC % 0.0 Platelet Estimate Adequate Schistocytes None seen APTT 27.7 Sodium 159 H 161 H* Potassium 2.8 L* 3.3 L Chloride 131 H 137 H Carbon Dioxide 18 L 17 L Anion Gap 10 7 BUN 62 H D 46 H D Creatinine 0.83 0.64 L Estim Creat Clear Calc 37 45 Estimated GFR > 60 > 60 Glucose 265 H 169 H Hemoglobin A1c 6.2 H Lactic Acid 0.7 Calcium 7.0 L 7.9 L Phosphorus 3.3 2.4 L Magnesium 1.9 1.9 Total Bilirubin 0.6 0.6 AST 32 31 ALT 45 H 43 H Alkaline Phosphatase 78 82 Total Creatine Kinase 134 Total Protein 5.0 L 5.0 L Albumin 2.6 L 2.7 L Procalcitonin 0.1 C. difficile (PCR) 12/21/24 12/21/24 10:23 12:23 WBC RBC Hgb Hct MCV MCH MCHC RDW Plt Count MPV Immature Gran % (Auto) Neut % (Auto) Lymph % (Auto) Davie % (Auto) Eos % (Auto) Baso % (Auto) Lymph # (Auto) Davie # (Auto) Eos # (Auto) Baso # (Auto) Abs Immat Gran (auto) Absolute Neuts (auto) Absolute Nucleated RBC Band Neutrophils % Nucleated RBC % Platelet Estimate Schistocytes APTT Sodium 159 H Potassium 4.3 Chloride 132 H Carbon Dioxide 20 L Anion Gap 7 BUN 32 H D Creatinine 0.53 L Estim Creat Clear Calc 53 Estimated GFR > 60 Glucose 162 H Hemoglobin A1c Lactic Acid Calcium 9.0 Phosphorus Magnesium Total Bilirubin AST ALT Alkaline Phosphatase Total Creatine Kinase Total Protein Albumin Procalcitonin C. difficile (PCR) Positive A* Quality VTE Prophylaxis VTE prophylaxis: mechanical ordered and pharmacologic ordered
[2024-12-21 18:14] LABS: Anion Gap 6 mmol/L (4-12); Blood Urea Nitrogen 27 mg/dL (7-17); Calcium 8.6 mg/dL (8.4-10.2); Carbon Dioxide 19 mmol/L (22-30); Chloride 129 mmol/L (98-107); Estimated CRCL calculation 54 ml/min; Estimated Glomerular Filt Rate > 60; Glucose 223 mg/dL (65-110); Potassium 3.5 mmol/L (3.4-5.0); Sodium 154 mmol/L (137-145)
[2024-12-21] MEDS: EZETIMIBE 10 MG TABLET FEED TUBE (21:30)
[2024-12-21] MEDS: ATORVASTATIN 40 MG TABLET 80 MG FEED TUBE (21:30)
[2024-12-21] MEDS: NOREPINEPHRINE 8 MG/D5W 250 ML 8 MG/250 ML BAG 9.38 MG IV CONT (22:05)
[2024-12-21 23:43] LABS: Glucose Point of Care 276 mg/dl (65-105)
[2024-12-22] VITALS (53 sets, daily range): BP systolic 77–166; BP diastolic 46–115; PULSE 68–108; RESP 20–44; TEMP 37.6–38.4; O2SAT 90–100
[2024-12-22] MEDS: INSULIN ASPART (*BKC) 100 UNITS/ML SUB-Q ×4 (00:39→12:01)
[2024-12-22 01:07] LABS: Anion Gap 8 mmol/L (4-12); Blood Urea Nitrogen 29 mg/dL (7-17); Calcium 7.8 mg/dL (8.4-10.2); Carbon Dioxide 16 mmol/L (22-30); Chloride 123 mmol/L (98-107); Estimated CRCL calculation 65 ml/min; Estimated Glomerular Filt Rate > 60; Glucose 388 mg/dL (65-110); Potassium 2.9 mmol/L (3.4-5.0); Sodium 147 mmol/L (137-145)
[2024-12-22] MEDS: POTASSIUM CHLORIDE 20 MEQ PACKET (FOR LIQUID) 40 MEQ FEED TUBE (03:15)
[2024-12-22] MEDS: PIPERACILLN/TAZ 3.375GM/NS50ML 3.375 GM/50 ML BAG IVPB ×4 (03:15→21:18)
[2024-12-22] MEDS: KCL 40 MEQ/WATER 100 ML 100 ML 25 ML IVPB (03:15)
[2024-12-22] MEDS: CENTRAL LINE FLUSH 10 ML IV PUSH ×3 (06:51→20:01)
[2024-12-22] MEDS: VANCOMYCIN ORAL 125 MG/2.5 ML SYRUP FEED TUBE ×3 (06:52→17:01)
[2024-12-22 06:54] LABS: Hematocrit 31.4 % (37.0-47.0); Hemoglobin 9.5 g/dL (12.0-15.0); Mean Corpuscular HGB Conc 30.3 g/dl (32-36); Mean Corpuscular Hemoglobin 25.7 pg (26-34); Mean Corpuscular Volume 84.9 fl (80-100); Mean Platelet Volume 12.9 fl (7.4-10.4); Platelet Count Result 154 k/mm3 (150-375); Red Cell Distribution Width 15.2 % (11.5-14.5); White Blood Count 13.9 K/mm3 (4.5-10.0)
[2024-12-22 06:55] LABS: Glucose Point of Care 315 mg/dl (65-105)
[2024-12-22 07:11] LABS: Alanine Aminotransferase 32 U/L (6-35); Albumin Level 2.5 g/dL (3.5-5.1); Alkaline Phosphatase 94 U/L (38-126); Anion Gap 4 mmol/L (4-12); Aspartate Amino Transferase 26 U/L (14-36); Bilirubin,Total 0.5 mg/dL (0.2-1.3); Blood Urea Nitrogen 22 mg/dL (7-17); Calcium 7.7 mg/dL (8.4-10.2); Carbon Dioxide 19 mmol/L (22-30); Chloride 123 mmol/L (98-107); Estimated CRCL calculation 64 ml/min; Estimated Glomerular Filt Rate > 60; Glucose 354 mg/dL (65-110); Magnesium 1.5 mg/dL (1.6-2.3); Phosphorus 1.7 mg/dL (2.5-4.5); Potassium 5.1 mmol/L (3.4-5.0); Sodium 146 mmol/L (137-145)
[2024-12-22 07:33] LABS: Glucose Point of Care 323 mg/dl (65-105)
--- NOTE | 2024-12-22 07:48 | WPDINTPN ---
Progress Note: A&P Assessment and Plan (1) Septic shock: Code(s): A41.9 - Sepsis, unspecified organism; R65.21 - Severe sepsis with septic shock Status: Acute Assessment and Plan: Sepsis secondary to pneumonia, ? Questionable UTI and also dehydration from C diff ascended diarrhea Her pneumonia could be also be aspiration since she is on tube feeds Hold further IV fluids Continue low-dose Levophed to maintain mean arterial pressure. Will give 25% albumin and add midodrine Blood cultures and urine cultures have been sent and are pending She is currently on vancomycin and Zosyn Stool positive for C diff and she is on per tube vancomycin (2) Gastrostomy status: Code(s): Z93.1 - Gastrostomy status Status: Acute Assessment and Plan: Continue tube feeding (3) Right upper quadrant abdominal abscess: Code(s): K65.1 - Peritoneal abscess Status: Acute Assessment and Plan: Patient had a cholecystostomy tube placed for cholecystitis in 2020. 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 This is a chronic issue Continue antibiotics, local wound care and open draining Patient was evaluated by General surgery 2 months ago and due to her being a poor candidate for any surgical intervention they recommended conservative management with local wound care and antibiotic. Site does not look infected as there is no redness or erythema around it (4) Acute hypernatremia: Code(s): E87.0 - Hyperosmolality and hypernatremia Status: Acute Assessment and Plan: Hypernatremia secondary to dehydration She presented with sodium of 168. Nephrology was consulted and has been managing fluids and correction of hyponatremia Sodium decreased to 146 this morning. I will discontinue D5 water and decrease free water flushes 200 She will also get sodium phosphate Recheck labs at noon (5) CVA (cerebral vascular accident): Code(s): I63.9 - Cerebral infarction, unspecified Status: Acute Assessment and Plan: History of CVA. Continue aspirin and statin (6) Pneumonia: Code(s): J18.9 - Pneumonia, unspecified organism Status: Acute Assessment and Plan: See above (7) Reflux esophagitis: Qualifiers: Esophagitis bleeding: without hemorrhage Qualified Code(s): K21.00 - Gastro-esophageal reflux disease with esophagitis, without bleeding Code(s): K21.00 - Gastro-esophageal reflux disease with esophagitis, without bleeding Status: Chronic Assessment and Plan: PPI (8) Dehydration: Code(s): E86.0 - Dehydration Status: Acute Assessment and Plan: See above (9) Diarrhea: Code(s): R19.7 - Diarrhea, unspecified Status: Acute Assessment and Plan: Positive for C diff Empiric per tube vancomycin FMS (10) Electrolyte abnormality: Code(s): E87.8 - Other disorders of electrolyte and fluid balance, not elsewhere classified Status: Acute Assessment and Plan: Replacement of low phosphate magnesium and calcium ordered Patient was receiving potassium replacement and repeat potassium was elevated at 5.1 which could be contamination from the infusion I have discontinued potassium replacement and recheck BMP at noon (11) Anemia: Qualifiers: Anemia type: unspecified type Qualified Code(s): D64.9 - Anemia, unspecified Code(s): D64.9 - Anemia, unspecified Status: Acute Assessment and Plan: Chronic anemia but patient presented with normal hemoglobin level likely secondary to hemoconcentration which has now gone close to baseline. Monitor Plan DVT prophylaxis -Lovenox Stress ulcer prophylaxis -PPI Nutrition -continue Tube Feeds Code Status - Full Code Total Critical Care Time -30 minutes Due to a high probability of clinically significant, life threatening deterioration, the patient required my highest level of preparedness to intervene emergently and I personally spent this critical care time directly and personally managing the patient. This critical care time included obtaining a history; examining the patient; pulse oximetry; ordering and review of studies; arranging urgent treatment with development of a management plan; evaluation of patient's response to treatment; frequent reassessment; and discussions with other providers. It was exclusive of separately billable procedures and treating other patients and teaching time. Please see Assessment and Plan section and the rest of the note for further information on patient assessment and treatment Subjective Date/time seen: 12/22/24 Patient continues to require very low-dose Levophed to maintain a mean arterial pressure. She continues to be on IV fluids. She has liquid stool which although has decreased overnight. She is on room air. Continues to be noncommunicative and does not follow any commands. Review of system was not obtainable. Review of Systems Review of Systems: ROS unobtainable: Yes unobtainable due to medical condition and unobtainable due to mental status Exam Narrative: General: Pt is malnourished cachectic old frail female who is not in any distress and is not communicated Lungs/Chest: Trachea central Clear BS B/L, No crackles or wheezing. Cardiac: RRR. Normal S1 S2. No murmurs Circulation: Pedal pulses are intact and symmetrical. Abdomen: Normal bowel sounds.. Soft. NT. ND. There is a fistula/wound on the abdominal wall and right upper quadrant with minimal amount of clear drainage under the dressing. There is a PEG tube in place Extremities: No clubbing, cyanosis or edema. Warm : Marquis in place Neurologic: Pupils are unequal but both reactive to light left is bigger than right, dysconjugate gaze, she moves all 4 extremities but left more than right, does not follow command, does not answer any course, does not exhibit purposeful movement, she has contractures of right upper and right lower extremities, right lower extremities contracture did flexion position at the hip Skin: No Rash Objective Data Vital Signs Vital Signs: Vital Signs - 24 hr 12/21/24 08:00 12/21/24 08:00 12/21/24 08:00 Temperature 36.9 C Pulse Rate 74 74 Respiratory Rate 16 Blood Pressure 107/50 L 107/50 L Pulse Oximetry 100 100 Oxygen Delivery Room Air Fraction of Inspired Oxygen 12/21/24 08:00 12/21/24 10:00 12/21/24 10:00 Temperature 36.9 C Pulse Rate 74 79 79 Respiratory Rate 30 H Blood Pressure 108/54 L Pulse Oximetry 100 Oxygen Delivery Fraction of Inspired Oxygen 12/21/24 10:30 12/21/24 12:00 12/21/24 12:00 Temperature 36.7 C Pulse Rate 90 77 68 Respiratory Rate 16 Blood Pressure 124/63 96/65 L Pulse Oximetry 100 Oxygen Delivery Fraction of Inspired Oxygen 12/21/24 12:00 12/21/24 13:25 12/21/24 14:00 Temperature 37.0 C Pulse Rate 73 66 Respiratory Rate 20 Blood Pressure 87/45 L 87/59 L Pulse Oximetry 100 98 Oxygen Delivery Room Air Fraction of Inspired Oxygen 12/21/24 14:00 12/21/24 14:05 12/21/24 16:00 Temperature Pulse Rate 66 65 93 Respiratory Rate Blood Pressure 87/59 L 98/59 L Pulse Oximetry Oxygen Delivery Fraction of Inspired Oxygen 12/21/24 16:00 12/21/24 16:00 12/21/24 16:00 Temperature 37.1 C Pulse Rate 91 95 Respiratory Rate 28 H Blood Pressure 98/59 L Pulse Oximetry 95 100 Oxygen Delivery Room Air Fraction of Inspired Oxygen 12/21/24 17:30 12/21/24 18:00 12/21/24 18:00 Temperature 37.6 C H Pulse Rate 91 98 98 Respiratory Rate 18 Blood Pressure 101/71 116/67 Pulse Oximetry 93 Oxygen Delivery Fraction of Inspired Oxygen 12/21/24 18:00 12/21/24 19:23 12/21/24 19:30 Temperature Pulse Rate 98 96 99 Respiratory Rate 20 Blood Pressure 116/67 84/58 L Pulse Oximetry 100 Oxygen Delivery Room Air Fraction of Inspired Oxygen 21 12/21/24 20:00 12/21/24 20:00 12/21/24 20:00 Temperature 38.2 C H Pulse Rate 99 99 92 Respiratory Rate 24 H 24 H Blood Pressure 102/49 L Pulse Oximetry 98 99 Oxygen Delivery Room Air Fraction of Inspired Oxygen 12/21/24 21:15 12/21/24 22:00 12/21/24 22:00 Temperature 38.2 C H Pulse Rate 98 100 100 Respiratory Rate 28 H Blood Pressure 86/46 L 82/51 L Pulse Oximetry 100 Oxygen Delivery Fraction of Inspired Oxygen 12/21/24 22:00 12/21/24 22:05 12/21/24 22:30 Temperature 38.1 C H Pulse Rate 100 100 105 H Respiratory Rate 26 H Blood Pressure 82/51 L 82/51 L 101/43 L Pulse Oximetry 98 Oxygen Delivery Fraction of Inspired Oxygen 12/21/24 23:27 12/21/24 23:27 12/22/24 00:00 Temperature Pulse Rate 93 105 H 107 H Respiratory Rate 25 H Blood Pressure 106/65 Pulse Oximetry 98 Oxygen Delivery Room Air Fraction of Inspired Oxygen 12/22/24 00:00 12/22/24 01:00 12/22/24 02:00 Temperature 37.6 C H Pulse Rate 107 H 95 108 H Respiratory Rate 22 H Blood Pressure 106/65 87/46 L Pulse Oximetry 98 Oxygen Delivery Fraction of Inspired Oxygen 12/22/24 02:00 12/22/24 02:21 12/22/24 03:37 Temperature 37.6 C H Pulse Rate 108 H 108 H 108 H Respiratory Rate 22 H 22 H Blood Pressure 166/61 H 118/67 Pulse Oximetry 99 99 Oxygen Delivery Room Air Fraction of Inspired Oxygen 12/22/24 03:40 12/22/24 04:00 12/22/24 06:00 Temperature 37.7 C H Pulse Rate 82 82 86 Respiratory Rate 28 H Blood Pressure 112/72 Pulse Oximetry 90 Oxygen Delivery Fraction of Inspired Oxygen 12/22/24 06:00 12/22/24 07:04 12/22/24 07:18 Temperature 37.7 C H 37.9 C H Pulse Rate 89 86 87 Respiratory Rate 26 H 22 H Blood Pressure 114/74 105/87 105/87 Pulse Oximetry 100 99 Oxygen Delivery Fraction of Inspired Oxygen 12/22/24 07:26 Temperature Pulse Rate 87 Respiratory Rate Blood Pressure 102/68 Pulse Oximetry Oxygen Delivery Fraction of Inspired Oxygen Intake/Output Intake/Output: Intake & Output 12/19/24 12/20/24 12/21/24 12/22/24 23:59 23:59 23:59 23:59 Intake Total 3949 1388.7 1146.0 Output Total 225 1400 450 Balance 3724 -11.3 696.0 Meds/Results Medications: Active Medications Generic Name Dose Route Start Last Admin Trade Name Freq PRN Reason Stop Dose Admin Acetaminophen 650 mg 12/21/24 09:45 Acetaminophen Elixir 325 Mg/10.15 Ml Udc FEED TUBE Q4H PRN Pain (Scale Score 1-3)/fever Albuterol 2 puff 12/21/24 09:46 Albuterol Sulfate (*Sp) Aerosol 1 Puff INHALATION PRN PRN Wheezing Ascorbic Acid 500 mg 12/21/24 09:50 12/21/24 10:34 Ascorbic Acid 500 Mg Tablet FEED TUBE 500 mg DAILY SANDRA Administration Aspirin 81 mg 12/21/24 09:50 12/21/24 10:34 Aspirin 81 Mg Chewable Tablet FEED TUBE 81 mg DAILY SANDRA Administration Atorvastatin Calcium 80 mg 12/21/24 21:00 12/21/24 21:30 Atorvastatin 40 Mg Tablet FEED TUBE 80 mg HS SANDRA Administration Bisacodyl 10 mg 12/21/24 09:40 Bisacodyl 10 Mg Suppository RECTAL DAILY PRN constipation Dextrose 12.5 gm 12/21/24 23:44 Dextrose 50% 25 Gm/50 Ml Syringe IV PUSH PRN PRN Hypoglycemia Protocol Ezetimibe 10 mg 12/21/24 21:00 12/21/24 21:30 Ezetimibe 10 Mg Tablet FEED TUBE 10 mg HS SANDRA Administration Glucagon 1 mg 12/21/24 23:44 Glucagon For Inj 1 Mg Vial IM PRN PRN Hypoglycemia Protocol Glucose 15 gm 12/21/24 23:44 Glucose Oral Gel 15 Gm Of Glucse In 37.5 Gm Tube PO PRN PRN Hypoglycemia Protocol Vancomycin HCl 750 mg in 250 mls @ 250 mls/hr 12/21/24 09:00 12/21/24 09:33 Vancomycin 750 Mg/Ns 250 Ml IVPB Infused Q24H SANDRA Infusion Piperacillin/Tazobactam/Dextrose 3.375 gm in 50 mls @ 100 mls/hr 12/21/24 10:00 12/22/24 03:15 Zosyn 3.375 Gm/Ns 50 Ml IVPB 100 mls/hr Q6H SANDRA Administration Norepinephrine Bitartrate 8 mg in 250 mls @ 3.75 mls/hr 12/21/24 21:30 12/22/24 07:26 Levophed 8 Mg/D5w 250 Ml IV CONT 2 mcg/min .Q24H SANDRA 3.75 mls/hr Titration Protocol 2 MCG/MIN Dextrose 1,000 mls @ 100 mls/hr 12/21/24 23:44 Dextrose 5% 1,000 Ml IVPB PRN PRN Hypoglycemia Protocol Sodium Phosphate 20 mm/ 256.6667 mls @ 50 mls/hr 12/22/24 07:30 Dextrose IVPB 12/22/24 12:37 ONCE ONE Calcium Gluconate 2,000 mg in 100 mls @ 100 mls/hr 12/22/24 07:45 Calcium Gluc 2,000 Mg/Ns 100ml IVPB 12/22/24 08:44 ONCE ONE Magnesium Sulfate 2 gm in 50 mls @ 25 mls/hr 12/22/24 07:45 Magnesium Sulf 2 Gm/Water 50ml IVPB 12/22/24 09:44 ONCE ONE Albumin Human 100 mls @ 60 mls/hr 12/22/24 08:00 Albutein IVPB 12/23/24 03:39 Q6H SANDRA Insulin Aspart 3 - 6 units 12/22/24 07:25 Insulin Aspart (*Bkc) 100 Units/Ml SUB-Q Q4H [facility] Protocol Insulin Glargine 10 units 12/22/24 09:00 Insulin Glargine (*Bkc) 100 Units/Ml SUB-Q QAM SANDRA Magnesium Citrate 300 ml 12/21/24 09:40 Magnesium Citrate 300 Ml Btl FEED TUBE DAILY PRN Constipation Midodrine 5 mg 12/22/24 09:00 Midodrine Hcl 2.5 Mg Tablet FEED TUBE TID SANDRA Pantoprazole Sodium 40 mg 12/21/24 21:00 12/21/24 21:30 Pantoprazole Sodium Iv 40 Mg Vial IV PUSH 40 mg Q12HR SANDRA Administration Silver Sulfadiazine 1 applic 12/21/24 09:50 12/21/24 10:34 Silver Sulfadiazine 1% Cr 400 Gm Jar (*Bkc) TOPICAL 1 applic DAILY SANDRA Administration Sodium Chloride 10 ml 12/20/24 22:00 12/22/24 06:51 Central Line Flush IV PUSH 10 ml Q8HR SANDRA Administration Sodium Chloride 20 ml 12/20/24 17:15 Central Line Flush IV PUSH PRN PRN after blood draws Vancomycin HCl 125 mg 12/21/24 12:00 12/22/24 06:52 Vancomycin Oral 125 Mg/2.5 Ml Syrup FEED TUBE 125 mg Q6HR SANDRA Administration Vitamin D 1,000 units 12/21/24 09:50 12/21/24 10:34 Cholecalciferol 1,000 Units Tablet FEED TUBE 1,000 units DAILY SANDRA Administration Radiology Results: ITS Impressions Head CT 12/20/24 16:30 IMPRESSION: No acute intracranial findings. Chest/Abdomen/Pelvis CT 12/20/24 16:42 IMPRESSION: CHEST: 1. Highly suggestive of pneumonia in the right lower lobe. 2. No evidence of pulmonary embolism or dissection. ABDOMEN/PELVIS: 1. No evidence of appendicitis, diverticulitis or intestinal obstruction. 2. Fluid in the large bowel which may indicate diarrhea versus enteritis. Clinical correlation advised. 3. Multiple fibroids. 4. Compression fracture of L4 which may be acute or chronic. MRI is advised. 5. Severe atherosclerotic changes of the iliac arteries. Severe stenosis of both iliac arteries. Chest X-Ray 12/20/24 17:34 IMPRESSION: Right subclavian central venous catheter in good position and ready for immediate use Labs Labs: Laboratory Results - last 24 hr 12/21/24 12/21/2412/21/25 04:55 06:58 10:23 WBC 11.9 H RBC 3.70 L Hgb 9.1 L D Hct 33.3 L MCV 90.0 MCH 24.6 L MCHC 27.3 L RDW 15.7 H Plt Count 137 L D MPV 12.3 H Immature Gran % (Auto) 0.8 H Neut % (Auto) 80.8 H Lymph % (Auto) 12.3 L [place] % (Auto) 5.7 Eos % (Auto) 0.3 Baso % (Auto) 0.1 L Lymph # (Auto) 1.47 [place] # (Auto) 0.7 H Eos # (Auto) 0.0 Baso # (Auto) 0.0 Abs Immat Gran (auto) 0.10 H Absolute Neuts (auto) 9.6 H Absolute Nucleated RBC 0.000 Band Neutrophils % Not Reportable Nucleated RBC % 0.0 Platelet Estimate Adequate Schistocytes None seen Sodium Potassium Chloride Carbon Dioxide Anion Gap BUN Creatinine Estim Creat Clear Calc Estimated GFR Glucose POC Capillary Glucose Hemoglobin A1c 6.2 H Calcium Phosphorus Magnesium Total Bilirubin AST ALT Alkaline Phosphatase Total Protein Albumin Procalcitonin 0.1 C. difficile (PCR) Positive A* 12/21/24 12/21/24 12/21/24 12:23 17:54 23:41 WBC RBC Hgb Hct MCV MCH MCHC RDW Plt Count MPV Immature Gran % (Auto) Neut % (Auto) Lymph % (Auto) [place] % (Auto) Eos % (Auto) Baso % (Auto) Lymph # (Auto) [place] # (Auto) Eos # (Auto) Baso # (Auto) Abs Immat Gran (auto) Absolute Neuts (auto) Absolute Nucleated RBC Band Neutrophils % Nucleated RBC % Platelet Estimate Schistocytes Sodium 159 H 154 H Potassium 4.3 3.5 Chloride 132 H 129 H Carbon Dioxide 20 L 19 L Anion Gap 7 6 BUN 32 H D 27 H Creatinine 0.53 L 0.52 L Estim Creat Clear Calc 53 54 Estimated GFR > 60 > 60 Glucose 162 H 223 H POC Capillary Glucose 276 H Hemoglobin A1c Calcium 9.0 8.6 Phosphorus Magnesium Total Bilirubin AST ALT Alkaline Phosphatase Total Protein Albumin Procalcitonin C. difficile (PCR) 12/22/24 12/22/24 12/22/24 00:45 06:42 06:53 WBC 13.9 H RBC 3.70 L Hgb 9.5 L Hct 31.4 L MCV 84.9 D MCH 25.7 L MCHC 30.3 L RDW 15.2 H Plt Count 154 MPV 12.9 H Immature Gran % (Auto) Neut % (Auto) Lymph % (Auto) [place] % (Auto) Eos % (Auto) Baso % (Auto) Lymph # (Auto) [place] # (Auto) Eos # (Auto) Baso # (Auto) Abs Immat Gran (auto) Absolute Neuts (auto) Absolute Nucleated RBC Band Neutrophils % Nucleated RBC % Platelet Estimate Schistocytes Sodium 147 H 146 H Potassium 2.9 L 5.1 H Chloride 123 H 123 H Carbon Dioxide 16 L 19 L Anion Gap 8 4 BUN 29 H 22 H Creatinine 0.42 L 0.43 L Estim Creat Clear Calc 65 64 Estimated GFR > 60 > 60 Glucose 388 H 354 H POC Capillary Glucose 315 H Hemoglobin A1c Calcium 7.8 L 7.7 L Phosphorus 1.7 L Magnesium 1.5 L Total Bilirubin 0.5 AST 26 ALT 32 Alkaline Phosphatase 94 Total Protein 5.0 L Albumin 2.5 L Procalcitonin C. difficile (PCR) 12/22/24 07:30 WBC RBC Hgb Hct MCV MCH MCHC RDW Plt Count MPV Immature Gran % (Auto) Neut % (Auto) Lymph % (Auto) [place] % (Auto) Eos % (Auto) Baso % (Auto) Lymph # (Auto) [place] # (Auto) Eos # (Auto) Baso # (Auto) Abs Immat Gran (auto) Absolute Neuts (auto) Absolute Nucleated RBC Band Neutrophils % Nucleated RBC % Platelet Estimate Schistocytes Sodium Potassium Chloride Carbon Dioxide Anion Gap BUN Creatinine Estim Creat Clear Calc Estimated GFR Glucose POC Capillary Glucose 323 H Hemoglobin A1c Calcium Phosphorus Magnesium Total Bilirubin AST ALT Alkaline Phosphatase Total Protein Albumin Procalcitonin C. difficile (PCR) Quality VTE Prophylaxis VTE prophylaxis: mechanical ordered and pharmacologic ordered
[2024-12-22] MEDS: CHOLECALCIFEROL 1,000 UNITS TABLET 1000 UNITS FEED TUBE (08:48)
[2024-12-22] MEDS: ASCORBIC ACID 500 MG TABLET FEED TUBE (08:48)
[2024-12-22] MEDS: MIDODRINE HCL 2.5 MG TABLET 5 MG FEED TUBE ×3 (08:48→16:52)
[2024-12-22] MEDS: ASPIRIN 81 MG CHEWABLE TABLET FEED TUBE (08:48)
[2024-12-22] MEDS: PANTOPRAZOLE SODIUM IV 40 MG VIAL IV PUSH ×2 (08:49→20:02)
[2024-12-22] MEDS: ACETAMINOPHEN ELIXIR 325 MG/10.15 ML UDC 650 MG FEED TUBE ×2 (08:49→20:01)
[2024-12-22] MEDS: CALCIUM GLUC 2,000 MG/NS 100ML 2,000 MG/100 ML BAG 100 MG IVPB (08:58)
[2024-12-22] MEDS: MAGNESIUM SULF 2 GM/WATER 50ML 2 GM/50 ML BAG IVPB (08:58)
[2024-12-22] MEDS: ALBUMIN HUMAN 25% 25 GM/100 ML 100 ML IVPB ×3 (08:58→20:01)
[2024-12-22] MEDS: INSULIN GLARGINE (*BKC) 100 UNITS/ML 10 UNITS SUB-Q (09:04)
[2024-12-22] MEDS: SODIUM PHOSPHATE 20 MM in DEXTROSE 5% IN WATER 250 ML 50 MM IVPB (09:06)
[2024-12-22] MEDS: SILVER SULFADIAZINE 1% CR 400 GM JAR (*BKC) 1 APPLIC TOPICAL (09:07)
--- NOTE | 2024-12-22 10:04 | P.PNNP_ITS ---
Progress Note: A&P Assessment and Plan (1) Hypernatremia: Code(s): E87.0 - Hyperosmolality and hypernatremia Status: Acute Assessment and Plan: * suspect due significant free water deficit secondary to: * prerenal factors * insensible losses * diarrhea * infection (pneumiona + C.diff colitis) * inadequate free water administration at her nursing facility (?) * other (?) * s/p aggressive IVF resuscitation in ER * resumed on free water flushes - slowly titrate s needed * senior care records indicate she was on FWF of 250cc q4hr * weaned off D5W IVFs at 40cc/hr as well * however, also getting some D5W with IV medications/piggyback (levophed gtt, IV magnesium...etc) * follow serial sodium levels (2) Septic shock: Code(s): A41.9 - Sepsis, unspecified organism; R65.21 - Severe sepsis with septic shock Status: Acute Assessment and Plan: * secondary to pneumonia +/- UTI along with C. diff colitis * aspiration pneumonia given location (RLL) and on tube feeds(?) * s/p aggressive IVF resuscitation * on vasopressor therapy to maintain MAP/blood pressure * wean as tolerated * added IV albumin and midodrine * follow culture data * on antibiotic therapy * follow trend of hemodynamics (3) Pneumonia: Code(s): J18.9 - Pneumonia, unspecified organism Status: Acute Assessment and Plan: * as noted by admission imaging * respiratory status relatively stable * on antibiotic therapy (4) Clostridium difficile colitis: Code(s): A04.72 - Enterocolitis due to Clostridium difficile, not specified as recurrent Status: Acute Assessment and Plan: * C. diff toxin assay positive * noted history of diarrhea since admission * on oral vancomycin (5) Hypokalemia: Code(s): E87.6 - Hypokalemia Status: Acute Assessment and Plan: * suspect due to GI loss (diarrhea) * replete/replace as needed * follow magnesium as well (6) Hypophosphatemia: Code(s): E83.39 - Other disorders of phosphorus metabolism Status: Acute Assessment and Plan: * suspect due to GI loss/diarrhea * continue replacement as needed (7) Anemia: Qualifiers: Anemia type: unspecified type Qualified Code(s): D64.9 - Anemia, unspecified Code(s): D64.9 - Anemia, unspecified Status: Acute Assessment and Plan: * admission creatinine likely hemoconcentrated * drop in H/H presumably due to volume resuscitation * follow trend of H/H (8) Right upper quadrant abdominal abscess: Code(s): K65.1 - Peritoneal abscess Status: Acute Assessment and Plan: * noted history of cholecystostomy tube placed for cholecystitis in 2020 * tube was eventually removed but 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 L Subjective Date/time seen: 12/22/24 10:04 Interval history: Follow-up for acute hyponatremia. Sodium level continues to improve with current therapy/interventions -- D5W IVFs discontinued and remains on free water flushes at this time; no real significant change with regard to her mental/neurological status since admission; remains on low dose levophed and still having liquid stools although frequency appears to have decreased; respiratory status remains stable. Exam 2 Narrative: General: thin cachetic and ill-appearing female in NAD Heart: normal S1 and S2; no rub Lungs: clear anteriorly; decreased at right base Abdomen: soft, nontender, nondistended, positive bowel sounds; +G tube; fistula/wound in RUQ with dressing in place Extremities: no cyanosis or clubbing; no edema Skin: warm and dry Objective Data Vital Signs Vital Signs: Vital Signs Temp Pulse Resp BP Pulse Ox O2 Del Method FiO2 12/22/24 10:00 100.0 F H 94 27 H 102/51 L 99 12/22/24 10:00 94 102/51 L 12/22/24 09:49 100.0 F H 12/22/24 09:30 100 99/61 L 12/22/24 08:49 100.6 F H 12/22/24 08:00 99 12/22/24 08:00 99 Room Air 12/22/24 08:00 87 105/87 12/22/24 07:26 87 102/68 12/22/24 07:18 100.3 F H 87 22 H 105/87 99 12/22/24 07:04 86 105/87 12/22/24 06:00 100 F H 89 26 H 114/74 100 12/22/24 06:00 86 12/22/24 04:00 100 F H 82 28 H 112/72 90 12/22/24 03:40 82 12/22/24 03:37 108 H 22 H 99 Room Air 21 12/22/24 02:21 108 H 118/67 12/22/24 02:00 99.7 F H 108 H 22 H 166/61 H 99 12/22/24 02:00 108 H 12/22/24 01:00 95 87/46 L 12/22/24 00:00 99.7 F H 107 H 22 H 106/65 98 12/22/24 00:00 107 H 106/65 12/21/24 23:27 105 H 12/21/24 23:27 93 25 H 98 Room Air 12/21/24 22:30 100.5 F H 105 H 26 H 101/43 L 98 12/21/24 22:05 100 82/51 L 12/21/24 22:00 100 82/51 L 12/21/24 22:00 100.8 F H 100 28 H 82/51 L 100 12/21/24 22:00 100 12/21/24 21:15 98 86/46 L 12/21/24 20:00 100.8 F H 92 24 H 102/49 L 99 12/21/24 20:00 99 12/21/24 20:00 99 24 H 98 Room Air 12/21/24 19:30 99 84/58 L 12/21/24 19:23 96 20 100 Room Air 21 12/21/24 18:00 98 116/67 12/21/24 18:00 98 12/21/24 18:00 99.7 F H 98 18 116/67 93 12/21/24 17:30 91 101/71 12/21/24 16:00 100 Room Air 12/21/24 16:00 95 12/21/24 16:00 98.8 F 91 28 H 98/59 L 95 12/21/24 16:00 93 98/59 L 12/21/24 14:05 65 87/59 L 12/21/24 14:00 66 12/21/24 14:00 98.6 F 66 20 87/59 L 98 12/21/24 13:25 73 87/45 L Intake/Output Intake/Output: Intake & Output 12/19/24 12/20/24 12/21/24 12/22/24 23:59 23:59 23:59 23:59 Intake Total 3949 1744.7 2482.2 Output Total 225 1400 450 Balance 3724 344.7 2032.2 Meds/Results Medications: Active Medications Generic Name Dose Route Start Last Admin Trade Name Freq PRN Reason Stop Dose Admin Acetaminophen 650 mg 12/21/24 09:45 12/22/24 08:49 Acetaminophen Elixir 325 Mg/10.15 Ml Udc FEED TUBE 650 mg Q4H PRN Administration Pain (Scale Score 1-3)/fever Albuterol 2 puff 12/21/24 09:46 Albuterol Sulfate (*Sp) Aerosol 1 Puff INHALATION PRN PRN Wheezing Ascorbic Acid 500 mg 12/21/24 09:50 12/22/24 08:48 Ascorbic Acid 500 Mg Tablet FEED TUBE 500 mg DAILY SANDRA Administration Aspirin 81 mg 12/21/24 09:50 12/22/24 08:48 Aspirin 81 Mg Chewable Tablet FEED TUBE 81 mg DAILY SANDRA Administration Atorvastatin Calcium 80 mg 12/21/24 21:00 12/21/24 21:30 Atorvastatin 40 Mg Tablet FEED TUBE 80 mg HS SANDRA Administration Bisacodyl 10 mg 12/21/24 09:40 Bisacodyl 10 Mg Suppository RECTAL DAILY PRN constipation Dextrose 12.5 gm 12/21/24 23:44 Dextrose 50% 25 Gm/50 Ml Syringe IV PUSH PRN PRN Hypoglycemia Protocol Ezetimibe 10 mg 12/21/24 21:00 12/21/24 21:30 Ezetimibe 10 Mg Tablet FEED TUBE 10 mg HS SANDRA Administration Glucagon 1 mg 12/21/24 23:44 Glucagon For Inj 1 Mg Vial IM PRN PRN Hypoglycemia Protocol Glucose 15 gm 12/21/24 23:44 Glucose Oral Gel 15 Gm Of Glucse In 37.5 Gm Tube PO PRN PRN Hypoglycemia Protocol Piperacillin/Tazobactam/Dextrose 3.375 gm in 50 mls @ 100 mls/hr 12/21/24 10:00 12/22/24 09:38 Zosyn 3.375 Gm/Ns 50 Ml IVPB Infused Q6H SANDRA Infusion Norepinephrine Bitartrate 8 mg in 250 mls @ 3.75 mls/hr 12/21/24 21:30 12/22/24 12:05 Levophed 8 Mg/D5w 250 Ml IV CONT 2 mcg/min .Q24H SANDRA 3.75 mls/hr Administration Protocol 2 MCG/MIN Dextrose 1,000 mls @ 100 mls/hr 12/21/24 23:44 Dextrose 5% 1,000 Ml IVPB PRN PRN Hypoglycemia Protocol Sodium Phosphate 20 mm/ 256.6667 mls @ 50 mls/hr 12/22/24 07:30 12/22/24 09:06 Dextrose IVPB 12/22/24 12:37 50 mls/hr ONCE ONE Administration Albumin Human 100 mls @ 60 mls/hr 12/22/24 08:00 12/22/24 09:38 Albutein IVPB 12/23/24 03:39 Infused Q6H SANDRA Infusion Vancomycin HCl 750 mg in 250 mls @ 250 mls/hr 12/22/24 11:00 12/22/24 12:03 Vancomycin 750 Mg/Ns 250 Ml IVPB 250 mls/hr Q12H SANDRA Administration Insulin Aspart 3 - 6 units 12/22/24 07:25 12/22/24 12:01 Insulin Aspart (*Bkc) 100 Units/Ml SUB-Q 4 units Q4H SANDRA Administration Protocol Insulin Glargine 10 units 12/22/24 09:00 12/22/24 09:04 Insulin Glargine (*Bkc) 100 Units/Ml SUB-Q 10 units QAM SANDRA Administration Magnesium Citrate 300 ml 12/21/24 09:40 Magnesium Citrate 300 Ml Btl FEED TUBE DAILY PRN Constipation Midodrine 5 mg 12/22/24 09:00 12/22/24 08:48 Midodrine Hcl 2.5 Mg Tablet FEED TUBE 5 mg TID SANDRA Administration Pantoprazole Sodium 40 mg 12/21/24 21:00 12/22/24 08:49 Pantoprazole Sodium Iv 40 Mg Vial IV PUSH 40 mg Q12HR SANDRA Administration Silver Sulfadiazine 1 applic 12/21/24 09:50 12/22/24 09:07 Silver Sulfadiazine 1% Cr 400 Gm Jar (*Bkc) TOPICAL 1 applic DAILY SANDRA Administration Sodium Chloride 10 ml 12/20/24 22:00 12/22/24 06:51 Central Line Flush IV PUSH 10 ml Q8HR SANDRA Administration Sodium Chloride 20 ml 12/20/24 17:15 Central Line Flush IV PUSH PRN PRN after blood draws Vancomycin HCl 125 mg 12/21/24 12:00 12/22/24 12:03 Vancomycin Oral 125 Mg/2.5 Ml Syrup FEED TUBE 125 mg Q6HR SANDRA Administration Vitamin D 1,000 units 12/21/24 09:50 12/22/24 08:48 Cholecalciferol 1,000 Units Tablet FEED TUBE 1,000 units DAILY SANDRA Administration Radiology Results: ITS Impressions Head CT 12/20/24 16:30 IMPRESSION: No acute intracranial findings. Chest/Abdomen/Pelvis CT 12/20/24 16:42 IMPRESSION: CHEST: 1. Highly suggestive of pneumonia in the right lower lobe. 2. No evidence of pulmonary embolism or dissection. ABDOMEN/PELVIS: 1. No evidence of appendicitis, diverticulitis or intestinal obstruction. 2. Fluid in the large bowel which may indicate diarrhea versus enteritis. Clinical correlation advised. 3. Multiple fibroids. 4. Compression fracture of L4 which may be acute or chronic. MRI is advised. 5. Severe atherosclerotic changes of the iliac arteries. Severe stenosis of both iliac arteries. Chest X-Ray 12/20/24 17:34 IMPRESSION: Right subclavian central venous catheter in good position and ready for immediate use Labs Labs: Laboratory Tests 12/22/24 06:42 12/22/24 06:42 Calcium 7.7 L Phosphorus 1.7 L Magnesium 1.5 L Total Bilirubin 0.5 AST 26 ALT 32 Alkaline Phosphatase 94 Total Protein 5.0 L Albumin 2.5 L Microbiology 12/21/24 04:57 Abdomen Anaerobic Culture - Preliminary 12/20/24 14:08 Blood Blood Culture - Preliminary 12/20/24 14:09 Blood Blood Culture - Preliminary
[2024-12-22 10:12] LABS: Vancomycin Trough < 5.0 ug/mL (10.0-20.0)
--- NOTE | 2024-12-22 12:02 | PCNFU ---
Nutrition Follow-Up Complete: Severe Protein Calorie Malnutrition as related to inadequate protein energy intake as related to significant weight loss of 17 ibs in 3 months, severe subcutaneous fat loss as noted and severe muscle wasting as noted in NFPE. goal: Meet estimated nutritional needs We will continue current goal. Pt current nutrition is Jevity 1.5 at 50 ml/hr. Last recorded weight is 36.8 kg Bowel Motility: FMS Labs Reviewed:PO4 1.7, Glu 354, BUN 22, Cr 0.43, Na 146, K 5.1 Meds Noted: Levophed, Zosyn, Vancomycin, Vit D Skin: Stage III pressure ulcer-right knee Additional Notes: Patient is tolerating tube feedings of Jevity 1.5 at 50 ml/hr. Flush decreased from 150 to 100 ml q 4 hours. Na 146, improving. Patient is Cdiff+ Banatrol Plus BID continues for stool bulking. Protein Modular of Quinn BID continues for wound healing. Tube feedings are providing 1650 kcal/70 gm protein/836 ml water. Agree with diet orders. Will monitor weight, labs, skin, diet orders, meds every Wednesday and Wednesday.
[2024-12-22] MEDS: VANCOMYCIN 750 MG/NS 250 ML 750 MG/250 ML BAG 250 MG IVPB (12:03)
[2024-12-22] MEDS: NOREPINEPHRINE 8 MG/D5W 250 ML 8 MG/250 ML BAG 3.75 MG IV CONT (12:05)
[2024-12-22 12:28] LABS: Glucose Point of Care 271 mg/dl (65-105)
[2024-12-22 13:50] LABS: Magnesium 2.2 mg/dL (1.6-2.3); Phosphorus 3.2 mg/dL (2.5-4.5)
[2024-12-22 13:51] LABS: Anion Gap 6 mmol/L (4-12); Blood Urea Nitrogen 17 mg/dL (7-17); Calcium 8.5 mg/dL (8.4-10.2); Carbon Dioxide 19 mmol/L (22-30); Chloride 122 mmol/L (98-107); Estimated CRCL calculation 71 ml/min; Estimated Glomerular Filt Rate > 60; Glucose 280 mg/dL (65-110); Potassium 3.3 mmol/L (3.4-5.0); Sodium 147 mmol/L (137-145)
[2024-12-22] MEDS: POTASSIUM CHLORIDE 20 MEQ PACKET (FOR LIQUID) 40 MEQ PO (14:44)
[2024-12-22] MEDS: KCL 20 MEQ/SW 100 ML 100 ML 50 MEQ IVPB (14:44)
--- NOTE | 2024-12-22 16:40 | P.PNIM_ITS ---
Progress Note: A&P Assessment and Plan (1) Septic shock: Code(s): A41.9 - Sepsis, unspecified organism; R65.21 - Severe sepsis with septic shock Status: Acute Assessment and Plan: Sepsis secondary to pneumonia, ? Questionable UTI and also dehydration from C diff ascended diarrhea Her pneumonia could be also be aspiration since she is on tube feeds Hold further IV fluids Continue low-dose Levophed to maintain mean arterial pressure. Will give 25% albumin and add midodrine Blood cultures and urine cultures have been sent and are pending She is currently on vancomycin and Zosyn Stool positive for C diff and she is on per tube vancomycin (2) Gastrostomy status: Code(s): Z93.1 - Gastrostomy status Status: Acute Assessment and Plan: Continue tube feeding (3) Right upper quadrant abdominal abscess: Code(s): K65.1 - Peritoneal abscess Status: Acute Assessment and Plan: Patient had a cholecystostomy tube placed for cholecystitis in 2020. 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 This is a chronic issue Continue antibiotics, local wound care and open draining Patient was evaluated by General surgery 2 months ago and due to her being a poor candidate for any surgical intervention they recommended conservative management with local wound care and antibiotic. Site does not look infected as there is no redness or erythema around it (4) Acute hypernatremia: Code(s): E87.0 - Hyperosmolality and hypernatremia Status: Acute Assessment and Plan: Hypernatremia secondary to dehydration She presented with sodium of 168. Nephrology was consulted and has been managing fluids and correction of hyponatremia Sodium decreased to 146 this morning. I will discontinue D5 water and decrease free water flushes 200 She will also get sodium phosphate Recheck labs at noon (5) CVA (cerebral vascular accident): Code(s): I63.9 - Cerebral infarction, unspecified Status: Acute Assessment and Plan: History of CVA. Continue aspirin and statin (6) Pneumonia: Code(s): J18.9 - Pneumonia, unspecified organism Status: Acute Assessment and Plan: See above (7) Reflux esophagitis: Qualifiers: Esophagitis bleeding: without hemorrhage Qualified Code(s): K21.00 - Gastro-esophageal reflux disease with esophagitis, without bleeding Code(s): K21.00 - Gastro-esophageal reflux disease with esophagitis, without bleeding Status: Chronic Assessment and Plan: PPI (8) Dehydration: Code(s): E86.0 - Dehydration Status: Acute Assessment and Plan: See above (9) Diarrhea: Code(s): R19.7 - Diarrhea, unspecified Status: Acute Assessment and Plan: Positive for C diff Empiric per tube vancomycin FMS (10) Electrolyte abnormality: Code(s): E87.8 - Other disorders of electrolyte and fluid balance, not elsewhere classified Status: Acute Assessment and Plan: Replacement of low phosphate magnesium and calcium ordered Patient was receiving potassium replacement and repeat potassium was elevated at 5.1 which could be contamination from the infusion I have discontinued potassium replacement and recheck BMP at noon (11) Anemia: Qualifiers: Anemia type: unspecified type Qualified Code(s): D64.9 - Anemia, unspecified Code(s): D64.9 - Anemia, unspecified Status: Acute Assessment and Plan: Chronic anemia but patient presented with normal hemoglobin level likely secondary to hemoconcentration which has now gone close to baseline. Monitor Subjective Date/time seen: 12/22/24 16:40 Interval history: Patient is nonverbal and continues to receive vasopressor Review of Systems Review of Systems: ROS unobtainable: Yes unobtainable due to medical condition and unobtainable due to mental status Exam Narrative: General: Pt is malnourished cachectic old frail female who is not in any distress and is not communicated Lungs/Chest: Trachea central Clear BS B/L, No crackles or wheezing. Cardiac: RRR. Normal S1 S2. No murmurs Circulation: Pedal pulses are intact and symmetrical. Abdomen: Normal bowel sounds.. Soft. NT. ND. There is a fistula/wound on the abdominal wall and right upper quadrant with minimal amount of clear drainage under the dressing. There is a PEG tube in place Extremities: No clubbing, cyanosis or edema. Warm : Marquis in place Neurologic: Pupils are unequal but both reactive to light left is bigger than right, dysconjugate gaze, she moves all 4 extremities but left more than right, does not follow command, does not answer any course, does not exhibit purposeful movement, she has contractures of right upper and right lower extremities, right lower extremities contracture did flexion position at the hip Skin: No Rash Objective Data Vital Signs Vital Signs: Vital Signs - 24 hr 12/21/24 17:30 12/21/24 18:00 12/21/24 18:00 Temperature 99.7 F H Pulse Rate 91 98 98 Respiratory Rate 18 Blood Pressure 101/71 116/67 Pulse Oximetry 93 Oxygen Delivery Fraction of Inspired Oxygen 12/21/24 18:00 12/21/24 19:23 12/21/24 19:30 Temperature Pulse Rate 98 96 99 Respiratory Rate 20 Blood Pressure 116/67 84/58 L Pulse Oximetry 100 Oxygen Delivery Room Air Fraction of Inspired Oxygen 12/21/24 20:00 12/21/24 20:00 12/21/24 20:00 Temperature 100.8 F H Pulse Rate 99 99 92 Respiratory Rate 24 H 24 H Blood Pressure 102/49 L Pulse Oximetry 98 99 Oxygen Delivery Room Air Fraction of Inspired Oxygen 12/21/24 21:15 12/21/24 22:00 12/21/24 22:00 Temperature 100.8 F H Pulse Rate 98 100 100 Respiratory Rate 28 H Blood Pressure 86/46 L 82/51 L Pulse Oximetry 100 Oxygen Delivery Fraction of Inspired Oxygen 12/21/24 22:00 12/21/24 22:05 12/21/24 22:30 Temperature 100.5 F H Pulse Rate 100 100 105 H Respiratory Rate 26 H Blood Pressure 82/51 L 82/51 L 101/43 L Pulse Oximetry 98 Oxygen Delivery Fraction of Inspired Oxygen 12/21/24 23:27 12/21/24 23:27 12/22/24 00:00 Temperature Pulse Rate 93 105 H 107 H Respiratory Rate 25 H Blood Pressure 106/65 Pulse Oximetry 98 Oxygen Delivery Room Air Fraction of Inspired Oxygen 12/22/24 00:00 12/22/24 01:00 12/22/24 02:00 Temperature 99.7 F H Pulse Rate 107 H 95 108 H Respiratory Rate 22 H Blood Pressure 106/65 87/46 L Pulse Oximetry 98 Oxygen Delivery Fraction of Inspired Oxygen 12/22/24 02:00 12/22/24 02:21 12/22/24 03:37 Temperature 99.7 F H Pulse Rate 108 H 108 H 108 H Respiratory Rate 22 H 22 H Blood Pressure 166/61 H 118/67 Pulse Oximetry 99 99 Oxygen Delivery Room Air Fraction of Inspired Oxygen 12/22/24 03:40 12/22/24 04:00 12/22/24 06:00 Temperature 100 F H Pulse Rate 82 82 86 Respiratory Rate 28 H Blood Pressure 112/72 Pulse Oximetry 90 Oxygen Delivery Fraction of Inspired Oxygen 12/22/24 06:00 12/22/24 07:04 12/22/24 07:18 Temperature 100 F H 100.3 F H Pulse Rate 89 86 87 Respiratory Rate 26 H 22 H Blood Pressure 114/74 105/87 105/87 Pulse Oximetry 100 99 Oxygen Delivery Fraction of Inspired Oxygen 12/22/24 07:26 12/22/24 08:00 12/22/24 08:00 Temperature Pulse Rate 87 87 Respiratory Rate Blood Pressure 102/68 105/87 Pulse Oximetry 99 Oxygen Delivery Room Air Fraction of Inspired Oxygen 12/22/24 08:00 12/22/24 08:49 12/22/24 09:30 Temperature 100.6 F H Pulse Rate 99 100 Respiratory Rate Blood Pressure 99/61 L Pulse Oximetry Oxygen Delivery Fraction of Inspired Oxygen 12/22/24 09:49 12/22/24 10:00 12/22/24 10:00 Temperature 100.0 F H Pulse Rate 94 94 Respiratory Rate Blood Pressure 102/51 L Pulse Oximetry Oxygen Delivery Fraction of Inspired Oxygen 12/22/24 10:00 12/22/24 12:00 12/22/24 12:00 Temperature 100.0 F H 99.9 F H Pulse Rate 94 82 Respiratory Rate 27 H 26 H Blood Pressure 102/51 L 102/52 L Pulse Oximetry 99 99 99 Oxygen Delivery Room Air Fraction of Inspired Oxygen 12/22/24 12:00 12/22/24 12:05 12/22/24 12:05 Temperature Pulse Rate 76 79 79 Respiratory Rate Blood Pressure 115/59 L 115/59 L Pulse Oximetry Oxygen Delivery Fraction of Inspired Oxygen 12/22/24 14:00 12/22/24 14:00 12/22/24 14:00 Temperature 99.7 F H Pulse Rate 79 79 79 Respiratory Rate 20 Blood Pressure 96/51 L 95/51 L Pulse Oximetry 99 Oxygen Delivery Fraction of Inspired Oxygen 12/22/24 16:00 12/22/24 16:00 12/22/24 16:00 Temperature 99.9 F H Pulse Rate 90 90 Respiratory Rate 30 H Blood Pressure 86/66 L 86/66 L Pulse Oximetry 99 99 Oxygen Delivery Room Air Fraction of Inspired Oxygen 12/22/24 16:00 Temperature Pulse Rate 94 Respiratory Rate Blood Pressure Pulse Oximetry Oxygen Delivery Fraction of Inspired Oxygen Intake/Output Intake/Output: Intake & Output 12/19/24 12/20/24 12/21/24 12/22/24 23:59 23:59 23:59 23:59 Intake Total 3949 1744.7 2746.9 Output Total 225 1400 450 Balance 3724 344.7 2296.9 Meds/Results Medications: Active Medications Generic Name Dose Route Start Last Admin Trade Name Freq PRN Reason Stop Dose Admin Acetaminophen 650 mg 12/21/24 09:45 12/22/24 08:49 Acetaminophen Elixir 325 Mg/10.15 Ml Udc FEED TUBE 650 mg Q4H PRN Administration Pain (Scale Score 1-3)/fever Albuterol 2 puff 12/21/24 09:46 Albuterol Sulfate (*Sp) Aerosol 1 Puff INHALATION PRN PRN Wheezing Ascorbic Acid 500 mg 12/21/24 09:50 12/22/24 08:48 Ascorbic Acid 500 Mg Tablet FEED TUBE 500 mg DAILY SANDRA Administration Aspirin 81 mg 12/21/24 09:50 12/22/24 08:48 Aspirin 81 Mg Chewable Tablet FEED TUBE 81 mg DAILY SANDRA Administration Atorvastatin Calcium 80 mg 12/21/24 21:00 12/21/24 21:30 Atorvastatin 40 Mg Tablet FEED TUBE 80 mg HS SANDRA Administration Bisacodyl 10 mg 12/21/24 09:40 Bisacodyl 10 Mg Suppository RECTAL DAILY PRN constipation Dextrose 12.5 gm 12/21/24 23:44 Dextrose 50% 25 Gm/50 Ml Syringe IV PUSH PRN PRN Hypoglycemia Protocol Ezetimibe 10 mg 12/21/24 21:00 12/21/24 21:30 Ezetimibe 10 Mg Tablet FEED TUBE 10 mg HS SANDRA Administration Glucagon 1 mg 12/21/24 23:44 Glucagon For Inj 1 Mg Vial IM PRN PRN Hypoglycemia Protocol Glucose 15 gm 12/21/24 23:44 Glucose Oral Gel 15 Gm Of Glucse In 37.5 Gm Tube PO PRN PRN Hypoglycemia Protocol Piperacillin/Tazobactam/Dextrose 3.375 gm in 50 mls @ 100 mls/hr 12/21/24 10:00 12/22/24 09:38 Zosyn 3.375 Gm/Ns 50 Ml IVPB Infused Q6H SANDRA Infusion Norepinephrine Bitartrate 8 mg in 250 mls @ 5.625 mls/hr 12/21/24 21:30 12/22/24 16:00 Levophed 8 Mg/D5w 250 Ml IV CONT 3 mcg/min .Q24H SANDRA 5.63 mls/hr Titration Protocol 3 MCG/MIN Dextrose 1,000 mls @ 100 mls/hr 12/21/24 23:44 Dextrose 5% 1,000 Ml IVPB PRN PRN Hypoglycemia Protocol Albumin Human 100 mls @ 60 mls/hr 12/22/24 08:00 12/22/24 13:29 Albutein IVPB 12/23/24 03:39 60 mls/hr Q6H SANDRA Administration Vancomycin HCl 750 mg in 250 mls @ 250 mls/hr 12/22/24 11:00 12/22/24 13:05 Vancomycin 750 Mg/Ns 250 Ml IVPB Infused Q12H SANDRA Infusion Insulin Aspart 3 - 6 units 12/22/24 07:25 12/22/24 12:01 Insulin Aspart (*Bkc) 100 Units/Ml SUB-Q 4 units Q4H SANDRA Administration Protocol Insulin Glargine 10 units 12/22/24 09:00 12/22/24 09:04 Insulin Glargine (*Bkc) 100 Units/Ml SUB-Q 10 units QAM SANDRA Administration Magnesium Citrate 300 ml 12/21/24 09:40 Magnesium Citrate 300 Ml Btl FEED TUBE DAILY PRN Constipation Midodrine 5 mg 12/22/24 09:00 12/22/24 13:28 Midodrine Hcl 2.5 Mg Tablet FEED TUBE 5 mg TID SANDRA Administration Pantoprazole Sodium 40 mg 12/21/24 21:00 12/22/24 08:49 Pantoprazole Sodium Iv 40 Mg Vial IV PUSH 40 mg Q12HR SANDRA Administration Silver Sulfadiazine 1 applic 12/21/24 09:50 12/22/24 09:07 Silver Sulfadiazine 1% Cr 400 Gm Jar (*Bkc) TOPICAL 1 applic DAILY SANDRA Administration Sodium Chloride 10 ml 12/20/24 22:00 12/22/24 13:29 Central Line Flush IV PUSH 10 ml Q8HR SANDRA Administration Sodium Chloride 20 ml 12/20/24 17:15 Central Line Flush IV PUSH PRN PRN after blood draws Vancomycin HCl 125 mg 05/22/25 12:00 12/22/24 12:03 Vancomycin Oral 125 Mg/2.5 Ml Syrup FEED TUBE 125 mg Q6HR SANDRA Administration Vitamin D 1,000 units 12/21/24 09:50 12/22/24 08:48 Cholecalciferol 1,000 Units Tablet FEED TUBE 1,000 units DAILY SANDRA Administration Radiology Results: ITS Impressions Head CT 12/20/24 16:30 IMPRESSION: No acute intracranial findings. Chest/Abdomen/Pelvis CT 12/20/24 16:42 IMPRESSION: CHEST: 1. Highly suggestive of pneumonia in the right lower lobe. 2. No evidence of pulmonary embolism or dissection. ABDOMEN/PELVIS: 1. No evidence of appendicitis, diverticulitis or intestinal obstruction. 2. Fluid in the large bowel which may indicate diarrhea versus enteritis. Cl inical correlation advised. 3. Multiple fibroids. 4. Compression fracture of L4 which may be acute or chronic. MRI is advised. 5. Severe atherosclerotic changes of the iliac arteries. Severe stenosis of both iliac arteries. Chest X-Ray 12/20/24 17:34 IMPRESSION: Right subclavian central venous catheter in good position and ready for immediate use Labs Labs: Laboratory Results - last 24 hr 12/21/24 12/21/24 12/22/24 17:54 23:41 00:45 WBC RBC Hgb Hct MCV MCH MCHC RDW Plt Count MPV Sodium 154 H 147 H Potassium 3.5 2.9 L Chloride 129 H 123 H Carbon Dioxide 19 L 16 L Anion Gap 6 8 BUN 27 H 29 H Creatinine 0.52 L 0.42 L Estim Creat Clear Calc 54 65 Estimated GFR > 60 > 60 Glucose 223 H 388 H POC Capillary Glucose 276 H Calcium 8.6 7.8 L Phosphorus Magnesium Total Bilirubin AST ALT Alkaline Phosphatase Total Protein Albumin Vancomycin Trough 12/22/24 12/22/24 12/22/24 06:42 06:53 07:30 WBC 13.9 H RBC 3.70 L Hgb 9.5 L Hct 31.4 L MCV 84.9 D MCH 25.7 L MCHC 30.3 L RDW 15.2 H Plt Count 154 MPV 12.9 H Sodium 146 H Potassium 5.1 H Chloride 123 H Carbon Dioxide 19 L Anion Gap 4 BUN 22 H Creatinine 0.43 L Estim Creat Clear Calc 64 Estimated GFR > 60 Glucose 354 H POC Capillary Glucose 315 H 323 H Calcium 7.7 L Phosphorus 1.7 L Magnesium 1.5 L Total Bilirubin 0.5 AST 26 ALT 32 Alkaline Phosphatase 94 Total Protein 5.0 L Albumin 2.5 L Vancomycin Trough 12/22/24 12/22/24 12/22/24 08:02 12:00 12:13 WBC RBC Hgb Hct MCV MCH MCHC RDW Plt Count MPV Sodium 147 H Potassium 3.3 L Chloride 122 H Carbon Dioxide 19 L Anion Gap 6 BUN 17 Creatinine 0.38 L Estim Creat Clear Calc 71 Estimated GFR > 60 Glucose 280 H POC Capillary Glucose 271 H Calcium 8.5 Phosphorus 3.2 Magnesium 2.2 Total Bilirubin AST ALT Alkaline Phosphatase Total Protein Albumin Vancomycin Trough < 5.0 L Quality VTE Prophylaxis VTE prophylaxis: mechanical ordered and pharmacologic ordered Hospitalist MIPS Advance Care Plan I have confirmed that the patient's Advanced Care Plan is present, code status is documented, or surrogate decision maker is listed in patient medical record.: Yes Medication Reconciliation I have utilized all available resources to obtain, update and review the patients current medications (includes all prescriptions, OTC, herbals, cannabis, and nutritional supplements).: Yes
[2024-12-22 17:15] LABS: Glucose Point of Care 165 mg/dl (65-105)
[2024-12-22 18:00] LABS: Anion Gap 7 mmol/L (4-12); Blood Urea Nitrogen 18 mg/dL (7-17); Calcium 8.2 mg/dL (8.4-10.2); Carbon Dioxide 19 mmol/L (22-30); Chloride 122 mmol/L (98-107); Estimated CRCL calculation 65 ml/min; Estimated Glomerular Filt Rate > 60; Glucose 202 mg/dL (65-110); Potassium 4.4 mmol/L (3.4-5.0); Sodium 148 mmol/L (137-145)
[2024-12-22] MEDS: EZETIMIBE 10 MG TABLET FEED TUBE (20:02)
[2024-12-22] MEDS: ATORVASTATIN 40 MG TABLET 80 MG FEED TUBE (20:02)
[2024-12-23] VITALS (43 sets, daily range): BP systolic 83–149; BP diastolic 45–93; PULSE 47–98; RESP 12–27; TEMP 36.1–37.9; O2SAT 97–100
[2024-12-23 00:05] LABS: Glucose Point of Care 173 mg/dl (65-105)
[2024-12-23] MEDS: VANCOMYCIN 750 MG/NS 250 ML 750 MG/250 ML BAG 250 MG IVPB ×2 (00:31→10:37)
[2024-12-23] MEDS: VANCOMYCIN ORAL 125 MG/2.5 ML SYRUP FEED TUBE ×4 (00:32→17:24)
[2024-12-23 01:01] LABS: Anion Gap 7 mmol/L (4-12); Blood Urea Nitrogen 17 mg/dL (7-17); Calcium 8.1 mg/dL (8.4-10.2); Carbon Dioxide 21 mmol/L (22-30); Chloride 119 mmol/L (98-107); Estimated CRCL calculation 84 ml/min; Estimated Glomerular Filt Rate > 60; Glucose 146 mg/dL (65-110); Potassium 3.9 mmol/L (3.4-5.0); Sodium 147 mmol/L (137-145)
[2024-12-23 01:03] LABS: Glucose Point of Care 159 mg/dl (65-105)
[2024-12-23] MEDS: ALBUMIN HUMAN 25% 25 GM/100 ML 100 ML IVPB ×4 (01:39→19:42)
[2024-12-23] MEDS: PIPERACILLN/TAZ 3.375GM/NS50ML 3.375 GM/50 ML BAG IVPB ×4 (03:26→21:35)
[2024-12-23] MEDS: CENTRAL LINE FLUSH 10 ML IV PUSH ×3 (06:02→19:42)
[2024-12-23] MEDS: CENTRAL LINE FLUSH 20 ML IV PUSH (06:02)
[2024-12-23 06:23] LABS: Glucose Point of Care 110 mg/dl (65-105)
[2024-12-23 06:29] LABS: Hematocrit 24.3 % (37.0-47.0); Hemoglobin 7.4 g/dL (12.0-15.0); Immature Platelet Fraction Pct 10.8 % (0.9-11.2); Mean Corpuscular HGB Conc 30.5 g/dl (32-36); Mean Corpuscular Hemoglobin 25.5 pg (26-34); Mean Corpuscular Volume 83.8 fl (80-100); Mean Platelet Volume 12.7 fl (7.4-10.4); Platelet Count Result 84 k/mm3 (150-375); Red Cell Distribution Width 15.4 % (11.5-14.5); White Blood Count 6.9 K/mm3 (4.5-10.0)
[2024-12-23 06:35] LABS: Alanine Aminotransferase 18 U/L (6-35); Albumin Level 3.3 g/dL (3.5-5.1); Alkaline Phosphatase 47 U/L (38-126); Anion Gap 7 mmol/L (4-12); Aspartate Amino Transferase 21 U/L (14-36); Bilirubin,Total 0.5 mg/dL (0.2-1.3); Blood Urea Nitrogen 14 mg/dL (7-17); Calcium 8.2 mg/dL (8.4-10.2); Carbon Dioxide 22 mmol/L (22-30); Chloride 118 mmol/L (98-107); Estimated CRCL calculation 87 ml/min; Estimated Glomerular Filt Rate > 60; Glucose 108 mg/dL (65-110); Magnesium 1.9 mg/dL (1.6-2.3); Potassium 3.9 mmol/L (3.4-5.0); Sodium 147 mmol/L (137-145)
[2024-12-23 07:18] LABS: Glucose Point of Care 105 mg/dl (65-105)
--- NOTE | 2024-12-23 08:18 | P.PNINT_ITS ---
Progress Note: A&P Assessment and Plan (1) Septic shock: Code(s): A41.9 - Sepsis, unspecified organism; R65.21 - Severe sepsis with septic shock Status: Acute Assessment and Plan: Sepsis secondary to pneumonia, ? Questionable UTI and also dehydration from C diff ascended diarrhea Her pneumonia could be also be aspiration since she is on tube feeds She is off IV fluids now but continues to require low-dose Levophed to maintain her mean arterial pressure Continue 25% albumin and midodrine And hydrocortisone Blood cultures and urine cultures have been sent and are pending She is currently on vancomycin and Zosyn Stool positive for C diff and she is on per tube vancomycin (2) Gastrostomy status: Code(s): Z93.1 - Gastrostomy status Status: Acute Assessment and Plan: Continue tube feeding (3) Right upper quadrant abdominal abscess: Code(s): K65.1 - Peritoneal abscess Status: Acute Assessment and Plan: Patient had a cholecystostomy tube placed for cholecystitis in 2020. 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 This is a chronic issue Continue antibiotics, local wound care and open draining Patient was evaluated by General surgery 2 months ago and due to her being a poor candidate for any surgical intervention they recommended conservative management with local wound care and antibiotic. Site does not look infected as there is no redness or erythema around it (4) Acute hypernatremia: Code(s): E87.0 - Hyperosmolality and hypernatremia Status: Acute Assessment and Plan: Hypernatremia secondary to dehydration She presented with sodium of 168. Nephrology was consulted and has been managing fluids and correction of hyponatremia Sodium has improved and patient is now off of IV fluids. I will increase the free water flush to 200 (5) CVA (cerebral vascular accident): Code(s): I63.9 - Cerebral infarction, unspecified Status: Acute Assessment and Plan: History of CVA. Continue statin. Hold aspirin due to drop in hemoglobin (6) Pneumonia: Code(s): J18.9 - Pneumonia, unspecified organism Status: Acute Assessment and Plan: See above (7) Reflux esophagitis: Qualifiers: Esophagitis bleeding: without hemorrhage Qualified Code(s): K21.00 - Gastro-esophageal reflux disease with esophagitis, without bleeding Code(s): K21.00 - Gastro-esophageal reflux disease with esophagitis, without bleeding Status: Chronic Assessment and Plan: PPI (8) Dehydration: Code(s): E86.0 - Dehydration Status: Acute Assessment and Plan: See above (9) Diarrhea: Code(s): R19.7 - Diarrhea, unspecified Status: Acute Assessment and Plan: Positive for C diff Continue per tube vancomycin FMS (10) Electrolyte abnormality: Code(s): E87.8 - Other disorders of electrolyte and fluid balance, not elsewhere clas sified Status: Acute Assessment and Plan: Replacement of low phosphate ordered (11) Anemia: Qualifiers: Anemia type: unspecified type Qualified Code(s): D64.9 - Anemia, unspec ified Code(s): D64.9 - Anemia, unspecified Status: Acute Assessment and Plan: Patient has Chronic anemia but patient presented with normal hemoglobin level likely secondary to hemoconcentration which decreased suspected after patient received IV fluids Hemoglobin had stabilized in closed of 9 but further drops 0.4 today She had a positive Hemoccult at the time of presentation but her stools are mostly brown I will hold aspirin Continue monitor hemoglobin and transfuse if needed Continue Protonix IV q.12 hours GI consult Plan DVT prophylaxis -Lovenox Stress ulcer prophylaxis -PPI Nutrition -continue Tube Feeds Code Status - Full Code Total Critical Care Time -30 minutes Due to a high probability of clinically significant, life threatening deterioration, the patient required my highest level of preparedness to intervene emergently and I personally spent this critical care time directly and personally managing the patient. This critical care time included obtaining a history; examining the patient; pulse oximetry; ordering and review of studies; arranging urgent treatment with development of a management plan; evaluation of patient's response to treatment; frequent reassessment; and discussions with other providers. It was exclusive of separately billable procedures and treating other patients and teaching time. Please see Assessment and Plan section and the rest of the note for further information on patient assessment and treatment Subjective Date/time seen: 12/23/24 No significant change overnight. She had 220 mL output on FMS. Good urine output. Tolerating tube feeds. No change in neurological status. Low-grade fever. Continues to require low-dose of Levophed. Review of Systems Review of Systems: ROS unobtainable: Yes unobtainable due to medical condition and unobtainable due to mental status Exam Narrative: General: Pt is malnourished cachectic old frail female who is not in any distress and is not communicated Lungs/Chest: Trachea central Clear BS B/L, No crackles or wheezing. Cardiac: RRR. Normal S1 S2. No murmurs Circulation: Pedal pulses are intact and symmetrical. Abdomen: Normal bowel sounds.. Soft. NT. ND. There is a fistula/wound on the abdominal wall and right upper quadrant with minimal amount of clear drainage under the dressing. There is a PEG tube in place Extremities: No clubbing, cyanosis or edema. Warm : Marquis in place Neurologic: Pupils are unequal but both reactive to light left is bigger than right, dysconjugate gaze, she moves all 4 extremities but left more than right, does not follow command, does not answer any course, does not exhibit purposeful movement, she has contractures of right upper and right lower extremities, right lower extremities contracture did flexion position at the hip Skin: No Rash Objective Data Vital Signs Vital Signs: Vital Signs - 24 hr 12/22/24 08:49 12/22/24 09:30 12/22/24 09:49 Temperature 38.1 C H 37.8 C H Pulse Rate 100 Respiratory Rate Blood Pressure 99/61 L Pulse Oximetry Oxygen Delivery 12/22/24 10:00 12/22/24 10:00 12/22/24 10:00 Temperature 37.8 C H Pulse Rate 94 94 94 Respiratory Rate 27 H Blood Pressure 102/51 L 102/51 L Pulse Oximetry 99 Oxygen Delivery 12/22/24 12:00 12/22/24 12:00 12/22/24 12:00 Temperature 37.7 C H Pulse Rate 82 76 Respiratory Rate 26 H Blood Pressure 102/52 L Pulse Oximetry 99 99 Oxygen Delivery Room Air 12/22/24 12:05 12/22/24 12:05 12/22/24 14:00 Temperature Pulse Rate 79 79 79 Respiratory Rate Blood Pressure 115/59 L 115/59 L Pulse Oximetry Oxygen Delivery 12/22/24 14:00 12/22/24 14:00 12/22/24 16:00 Temperature 37.6 C H Pulse Rate 79 79 90 Respiratory Rate 20 Blood Pressure 96/51 L 95/51 L 86/66 L Pulse Oximetry 99 Oxygen Delivery 12/22/24 16:00 12/22/24 16:00 12/22/24 16:00 Temperature 37.7 C H Pulse Rate 90 94 Respiratory Rate 30 H Blood Pressure 86/66 L Pulse Oximetry 99 99 Oxygen Delivery Room Air 12/22/24 18:00 12/22/24 18:00 12/22/24 18:00 Temperature 38.1 C H Pulse Rate 95 95 95 Respiratory Rate 30 H Blood Pressure 95/49 L 95/49 L Pulse Oximetry 100 Oxygen Delivery 12/22/24 18:52 12/22/24 19:00 12/22/24 19:01 Temperature 38.2 C H 38.2 C H Pulse Rate 94 89 92 Respiratory Rate 25 H 31 H Blood Pressure 79/57 L 118/52 L Pulse Oximetry 100 100 Oxygen Delivery 12/22/24 19:15 12/22/24 19:16 12/22/24 19:30 Temperature 38.3 C H 38.3 C H 38.3 C H Pulse Rate 89 89 91 Respiratory Rate 33 H 36 H 42 H Blood Pressure 100/68 109/76 Pulse Oximetry 100 100 100 Oxygen Delivery 12/22/24 19:31 12/22/24 19:45 12/22/24 19:46 Temperature 38.3 C H 38.3 C H 38.3 C H Pulse Rate 91 87 90 Respiratory Rate 32 H 35 H 38 H Blood Pressure 77/50 L Pulse Oximetry 100 100 Oxygen Delivery 12/22/24 19:58 12/22/24 20:00 12/22/24 20:00 Temperature 38.3 C H Pulse Rate 89 90 Respiratory Rate 27 H Blood Pressure 95/46 L 92/70 L Pulse Oximetry 100 98 Oxygen Delivery Room Air 12/22/24 20:00 12/22/24 20:00 12/22/24 20:00 Temperature 38.4 C H 38.3 C H Pulse Rate 89 88 91 Respiratory Rate 28 H 26 H Blood Pressure 92/70 L 92/70 L Pulse Oximetry 98 92 Oxygen Delivery 12/22/24 20:01 12/22/24 20:01 12/22/24 20:15 Temperature 38.4 C H 38.4 C H 38.4 C H Pulse Rate 94 88 Respiratory Rate 44 H 31 H Blood Pressure 84/57 L Pulse Oximetry 100 Oxygen Delivery 12/22/24 20:16 12/22/24 20:17 12/22/24 20:30 Temperature 38.4 C H 38.4 C H Pulse Rate 89 88 86 Respiratory Rate 36 H 36 H Blood Pressure 84/57 L 134/115 H Pulse Oximetry 100 Oxygen Delivery 12/22/24 20:31 12/22/24 20:45 12/22/24 21:00 Temperature 38.4 C H 38.4 C H 38.3 C H Pulse Rate 83 79 Respiratory Rate 37 H 33 H Blood Pressure Pulse Oximetry 100 100 Oxygen Delivery 12/22/24 21:01 12/22/24 21:15 12/22/24 21:16 Temperature 38.2 C H 38.2 C H 38.2 C H Pulse Rate 87 86 Respiratory Rate 34 H 29 H Blood Pressure 146/78 H Pulse Oximetry 100 100 Oxygen Delivery 12/22/24 21:19 12/22/24 21:30 12/22/24 21:31 Temperature 38.1 C H 38.1 C H Pulse Rate 86 88 85 Respiratory Rate 32 H 29 H Blood Pressure 146/78 H 120/83 Pulse Oximetry 96 Oxygen Delivery 12/22/24 21:45 12/22/24 21:46 12/22/24 22:00 Temperature 37.9 C H 37.9 C H Pulse Rate 85 85 83 Respiratory Rate 24 H 23 H Blood Pressure 139/84 137/84 Pulse Oximetry Oxygen Delivery 12/22/24 22:00 12/22/24 22:00 12/22/24 22:45 Temperature 37.8 C H Pulse Rate 83 83 80 Respiratory Rate 23 H Blood Pressure 137/84 125/61 Pulse Oximetry 100 Oxygen Delivery 12/22/24 23:25 12/22/24 23:30 12/22/24 23:36 Temperature 37.6 C H 37.6 C H 37.6 C H Pulse Rate 68 69 68 Respiratory Rate 23 H 23 H 24 H Blood Pressure 101/58 L Pulse Oximetry 100 100 100 Oxygen Delivery 12/23/24 00:00 12/23/24 00:00 12/23/24 00:00 Temperature Pulse Rate 72 63 Respiratory Rate Blood Pressure 126/63 Pulse Oximetry 100 Oxygen Delivery Room Air 12/23/24 00:00 12/23/24 01:15 12/23/24 01:40 Temperature 37.5 C 37.4 C 37.3 C Pulse Rate 68 68 76 Respiratory Rate 20 23 H Blood Pressure 126/93 H Pulse Oximetry 100 100 Oxygen Delivery 12/23/24 01:41 12/23/24 02:00 12/23/24 02:00 Temperature 37.2 C Pulse Rate 77 71 73 Respiratory Rate 21 H Blood Pressure 110/65 93/50 L Pulse Oximetry 100 Oxygen Delivery 12/23/24 02:00 12/23/24 02:30 12/23/24 03:00 Temperature 37.2 C 37.3 C Pulse Rate 73 72 71 Respiratory Rate 20 22 H Blood Pressure 93/50 L 102/54 L 113/62 Pulse Oximetry 100 100 Oxygen Delivery 12/23/24 03:25 12/23/24 03:30 12/23/24 04:00 Temperature 37.3 C Pulse Rate 76 74 Respiratory Rate 22 H Blood Pressure 117/65 109/63 Pulse Oximetry 100 100 Oxygen Delivery 12/23/24 04:00 12/23/24 04:00 12/23/24 04:30 Temperature 37.3 C 37.3 C Pulse Rate 89 91 82 Respiratory Rate 22 H 21 H Blood Pressure 96/80 L 113/62 Pulse Oximetry 100 100 Oxygen Delivery 12/23/24 04:31 12/23/24 05:00 12/23/24 05:30 Temperature 37.5 C 37.7 C H Pulse Rate 79 91 80 Respiratory Rate 26 H 23 H Blood Pressure 113/62 99/83 L 106/64 Pulse Oximetry 100 100 Oxygen Delivery 12/23/24 06:00 12/23/24 06:24 12/23/24 06:24 Temperature 37.7 C H Pulse Rate 86 85 84 Respiratory Rate 22 H Blood Pressure 133/71 114/66 Pulse Oximetry 100 Oxygen Delivery 12/23/24 06:50 12/23/24 07:08 12/23/24 08:00 Temperature 37.9 C H Pulse Rate 78 76 98 Respiratory Rate 24 H Blood Pressure 83/65 L 83/45 L 108/53 L Pulse Oximetry 100 Oxygen Delivery Intake/Output Intake/Output: Intake & Output 12/20/24 12/21/24 12/22/24 12/23/24 23:59 23:59 23:59 23:59 Intake Total 3949 1744.7 4084.3 1302.6 Output Total 225 1400 1600 1200 Balance 3724 344.7 2484.3 102.6 Meds/Results Medications: Active Medications Generic Name Dose Route Start Last Admin Trade Name Freq PRN Reason Stop Dose Admin Acetaminophen 650 mg 12/21/24 09:45 12/22/24 20:01 Acetaminophen Elixir 325 Mg/10.15 Ml Udc FEED TUBE 650 mg Q4H PRN Administration Pain (Scale Score 1-3)/fever Albuterol 2 puff 12/21/24 09:46 Albuterol Sulfate (*Sp) Aerosol 1 Puff INHALATION PRN PRN Wheezing Ascorbic Acid 500 mg 12/21/24 09:50 12/22/24 08:48 Ascorbic Acid 500 Mg Tablet FEED TUBE 500 mg DAILY SANDRA Administration Aspirin 81 mg 12/21/24 09:50 12/22/24 08:48 Aspirin 81 Mg Chewable Tablet FEED TUBE 81 mg DAILY SANDRA Administration Atorvastatin Calcium 80 mg 12/21/24 21:00 12/22/24 20:02 Atorvastatin 40 Mg Tablet FEED TUBE 80 mg HS SANDRA Administration Bisacodyl 10 mg 12/21/24 09:40 Bisacodyl 10 Mg Suppository RECTAL DAILY PRN constipation Dextrose 12.5 gm 12/21/24 23:44 Dextrose 50% 25 Gm/50 Ml Syringe IV PUSH PRN PRN Hypoglycemia Protocol Ezetimibe 10 mg 12/21/24 21:00 12/22/24 20:02 Ezetimibe 10 Mg Tablet FEED TUBE 10 mg HS SANDRA Administration Glucagon 1 mg 12/21/24 23:44 Glucagon For Inj 1 Mg Vial IM PRN PRN Hypoglycemia Protocol Glucose 15 gm 12/21/24 23:44 Glucose Oral Gel 15 Gm Of Glucse In 37.5 Gm Tube PO PRN PRN Hypoglycemia Protocol Hydrocortisone Sodium Succinate 100 mg 12/23/24 08:00 Hydrocortisone Sodium Succinate 100 Mg/2 Ml Vial IV PUSH Q8H SANDRA Piperacillin/Tazobactam/Dextrose 3.375 gm in 50 mls @ 100 mls/hr 12/21/24 10:00 12/23/24 03:26 Zosyn 3.375 Gm/Ns 50 Ml IVPB 100 mls/hr Q6H SANDRA Administration Norepinephrine Bitartrate 8 mg in 250 mls @ 9.375 mls/hr 12/21/24 21:30 12/23/24 07:08 Levophed 8 Mg/D5w 250 Ml IV CONT 5 mcg/min .Q24H SANDRA 9.38 mls/hr Titration Protocol 5 MCG/MIN Dextrose 1,000 mls @ 100 mls/hr 12/21/24 23:44 Dextrose 5% 1,000 Ml IVPB PRN PRN Hypoglycemia Protocol Vancomycin HCl 750 mg in 250 mls @ 250 mls/hr 12/22/24 11:00 12/23/24 01:40 Vancomycin 750 Mg/Ns 250 Ml IVPB Infused Q12H SANDRA Infusion Albumin Human 100 mls @ 60 mls/hr 12/23/24 08:00 Albutein IVPB 12/24/24 03:39 Q6H SANDRA Insulin Aspart 3 - 6 units 12/22/24 20:00 12/23/24 04:32 Insulin Aspart (*Bkc) 100 Units/Ml SUB-Q Not Given Q4H [facility] Protocol Magnesium Citrate 300 ml 12/21/24 09:40 Magnesium Citrate 300 Ml Btl FEED TUBE DAILY PRN Constipation Midodrine 10 mg 12/23/24 09:00 Midodrine Hcl 10 Mg Tablet FEED TUBE TID SANDRA Pantoprazole Sodium 40 mg 12/21/24 21:00 12/22/24 20:02 Pantoprazole Sodium Iv 40 Mg Vial IV PUSH 40 mg Q12HR SANDRA Administration Silver Sulfadiazine 1 applic 12/21/24 09:50 12/22/24 09:07 Silver Sulfadiazine 1% Cr 400 Gm Jar (*Bkc) TOPICAL 1 applic DAILY SANDRA Administration Sodium Chloride 10 ml 12/20/24 22:00 12/23/24 06:02 Central Line Flush IV PUSH 10 ml Q8HR SANDRA Administration Sodium Chloride 20 ml 12/20/24 17:15 12/23/24 06:02 Central Line Flush IV PUSH 20 ml PRN PRN Administration after blood draws Vancomycin HCl 125 mg 12/21/24 12:00 12/23/24 06:01 Vancomycin Oral 125 Mg/2.5 Ml Syrup FEED TUBE 125 mg Q6HR SANDRA Administration Vitamin D 1,000 units 12/21/24 09:50 12/22/24 08:48 Cholecalciferol 1,000 Units Tablet FEED TUBE 1,000 units DAILY SANDRA Administration Radiology Results: ITS Impressions Head CT 12/20/24 16:30 IMPRESSION: No acute intracranial findings. Chest/Abdomen/Pelvis CT 12/20/24 16:42 IMPRESSION: CHEST: 1. Highly suggestive of pneumonia in the right lower lobe. 2. No evidence of pulmonary embolism or dissection. ABDOMEN/PELVIS: 1. No evidence of appendicitis, diverticulitis or intestinal obstruction. 2. Fluid in the large bowel which may indicate diarrhea versus enteritis. Clinical correlation advised. 3. Multiple fibroids. 4. Compression fracture of L4 which may be acute or chronic. MRI is advised. 5. Severe atherosclerotic changes of the iliac arteries. Severe stenosis of both iliac arteries. Chest X-Ray 12/20/24 17:34 IMPRESSION: Right subclavian central venous catheter in good position and ready for immediate use Labs Labs: Laboratory Results - last 24 hr 12/22/24 12/22/24 12/22/24 08:02 12:00 12:13 WBC RBC Hgb Hct MCV MCH MCHC RDW Plt Count MPV % Immature Plt Fraction Sodium 147 H Potassium 3.3 L Chloride 122 H Carbon Dioxide 19 L Anion Gap 6 BUN 17 Creatinine 0.38 L Estim Creat Clear Calc 71 Estimated GFR > 60 Glucose 280 H POC Capillary Glucose 271 H Calcium 8.5 Phosphorus 3.2 Magnesium 2.2 Total Bilirubin AST ALT Alkaline Phosphatase Total Protein Albumin Vancomycin Trough < 5.0 L 12/22/24 12/22/24 12/22/24 16:51 17:35 19:52 WBC RBC Hgb Hct MCV MCH MCHC RDW Plt Count MPV % Immature Plt Fraction Sodium 148 H Potassium 4.4 Chloride 122 H Carbon Dioxide 19 L Anion Gap 7 BUN 18 H Creatinine 0.42 L Estim Creat Clear Calc 65 Estimated GFR > 60 Glucose 202 H POC Capillary Glucose 165 H 173 H Calcium 8.2 L Phosphorus Magnesium Total Bilirubin AST ALT Alkaline Phosphatase Total Protein Albumin Vancomycin Trough 12/23/24 12/23/24 12/23/24 00:08 00:43 04:09 WBC RBC Hgb Hct MCV MCH MCHC RDW Plt Count MPV % Immature Plt Fraction Sodium 147 H Potassium 3.9 Chloride 119 H Carbon Dioxide 21 L Anion Gap 7 BUN 17 Creatinine 0.31 L Estim Creat Clear Calc 84 Estimated GFR > 60 Glucose 146 H POC Capillary Glucose 159 H 110 H Calcium 8.1 L Phosphorus Magnesium Total Bilirubin AST ALT Alkaline Phosphatase Total Protein Albumin Vancomycin Trough 12/23/24 12/23/24 05:56 07:12 WBC 6.9 RBC 2.90 L Hgb 7.4 L Hct 24.3 L MCV 83.8 MCH 25.5 L MCHC 30.5 L RDW 15.4 H Plt Count 84 L MPV 12.7 H % Immature Plt Fraction 10.8 Sodium 147 H Potassium 3.9 Chloride 118 H Carbon Dioxide 22 Anion Gap 7 BUN 14 Creatinine 0.35 L Estim Creat Clear Calc 87 Estimated GFR > 60 Glucose 108 POC Capillary Glucose 105 Calcium 8.2 L Phosphorus 2.0 L Magnesium 1.9 Total Bilirubin 0.5 AST 21 ALT 18 Alkaline Phosphatase 47 Total Protein 5.0 L Albumin 3.3 L Vancomycin Trough Quality VTE Prophylaxis VTE prophylaxis: mechanical ordered and pharmacologic ordered
[2024-12-23] MEDS: HYDROCORTISONE SODIUM SUCCINATE 100 MG/2 ML VIAL IV PUSH ×2 (08:54→16:11)
[2024-12-23] MEDS: SILVER SULFADIAZINE 1% CR 400 GM JAR (*BKC) 1 APPLIC TOPICAL (08:55)
[2024-12-23] MEDS: PANTOPRAZOLE SODIUM IV 40 MG VIAL IV PUSH ×2 (08:55→20:04)
[2024-12-23] MEDS: POTASSIUM/PHOSPHORUS/SODIUM 1.5 GM PACKET 1 PACKET FEED TUBE (08:57)
[2024-12-23] MEDS: CHOLECALCIFEROL 1,000 UNITS TABLET 1000 UNITS FEED TUBE (08:57)
[2024-12-23] MEDS: ASCORBIC ACID 500 MG TABLET FEED TUBE (08:57)
[2024-12-23] MEDS: MIDODRINE HCL 10 MG TABLET FEED TUBE ×3 (08:57→16:11)
--- NOTE | 2024-12-23 10:15 | P.PNNP_ITS ---
Progress Note: A&P Assessment and Plan (1) Hypernatremia: Code(s): E87.0 - Hyperosmolality and hypernatremia Status: Acute Assessment and Plan: * relatively stable * suspect due significant free water deficit secondary to: * prerenal factors * insensible losses * diarrhea * infection (pneumiona + C.diff colitis) * inadequate free water administration at her nursing facility (?) * other (?) * s/p aggressive IVF resuscitation in ER * resumed on free water flushes - slowly titrate s needed * care home records indicate she was on FWF of 250cc q4hr * weaned off D5W IVFs at 40cc/hr as well * however, also getting some D5W with IV medications/piggyback (levophed gtt, IV magnesium...etc) * follow serial sodium levels (2) Septic shock: Code(s): A41.9 - Sepsis, unspecified organism; R65.21 - Severe sepsis with septic shock Status: Acute Assessment and Plan: * secondary to pneumonia +/- UTI along with C. diff colitis * aspiration pneumonia given location (RLL) and on tube feeds(?) * s/p aggressive IVF resuscitation * on vasopressor therapy to maintain MAP/blood pressure * wean as tolerated * getting IV albumin and midodrine * follow culture data * on antibiotic therapy * follow trend of hemodynamics (3) Pneumonia: Code(s): J18.9 - Pneumonia, unspecified organism Status: Acute Assessment and Plan: * as noted by admission imaging * respiratory status relatively stable * on antibiotic therapy (4) Clostridium difficile colitis: Code(s): A04.72 - Enterocolitis due to Clostridium difficile, not specified as recurrent Status: Acute Assessment and Plan: * C. diff toxin assay positive * noted history of diarrhea since admission * on oral vancomycin (5) Hypokalemia: Code(s): E87.6 - Hypokalemia Status: Acute Assessment and Plan: * suspect due to GI loss (diarrhea) * replete/replace as needed * follow magnesium as well (6) Hypophosphatemia: Code(s): E83.39 - Other disorders of phosphorus metabolism Status: Acute Assessment and Plan: * suspect due to GI loss/diarrhea * continue replacement as needed (7) Anemia: Qualifiers: Anemia type: unspecified type Qualified Code(s): D64.9 - Anemia, unspecified Code(s): D64.9 - Anemia, unspecified Status: Acute Assessment and Plan: * admission creatinine likely hemoconcentrated * drop in H/H presumably due to volume resuscitation * follow trend of H/H (8) Right upper quadrant abdominal abscess: Code(s): K65.1 - Peritoneal abscess Status: Acute Assessment and Plan: * noted history of cholecystostomy tube placed for cholecystitis in 2020 * tube was eventually removed but 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 L Subjective Date/time seen: 12/23/24 10:15 Interval history: Follow-up for acute hyponatremia. Sodium stable if not continues to improve; still requiring low dose levophed gtt to maintain MAP/blood pressure; diarrhea appears to be slowing down; no significant change in neurological status at the time of my visit; low grade fevers noted; drop in H/H noted as well; no other acute issues/events overnight or earlier this morning. Exam 2 Narrative: General: thin cachetic and ill-appearing female in NAD Heart: normal S1 and S2; no rub Lungs: clear anteriorly; decreased at right base Abdomen: soft, nontender, nondistended, positive bowel sounds; +G tube; fistula/wound in RUQ with dressing in place Extremities: no cyanosis or clubbing; no edema Skin: warm and intact Objective Data Vital Signs Vital Signs: Vital Signs Temp Pulse Resp BP Pulse Ox O2 Del Method 12/23/24 10:00 94 26 H 123/52 L 100 12/23/24 09:07 79 116/63 12/23/24 08:54 82 126/58 L 12/23/24 08:00 81 12/23/24 08:00 100 12/23/24 08:00 81 131/57 L 12/23/24 08:00 100.2 F H 98 24 H 108/53 L 100 12/23/24 07:08 76 83/45 L 12/23/24 06:50 78 83/65 L 12/23/24 06:24 99.9 F H 84 22 H 114/66 100 12/23/24 06:24 85 05/24/25 06:00 86 133/71 12/23/24 05:30 99.8 F H 80 23 H 106/64 100 12/23/24 05:00 99.5 F 91 26 H 99/83 L 100 12/23/24 04:31 79 113/62 12/23/24 04:30 99.2 F 82 21 H 113/62 100 12/23/24 04:00 91 12/23/24 04:00 99.1 F 89 22 H 96/80 L 100 12/23/24 04:00 100 12/23/24 03:30 99.1 F 74 22 H 109/63 100 12/23/24 03:25 76 117/65 12/23/24 03:00 99.2 F 71 22 H 113/62 100 12/23/24 02:30 99.0 F 72 20 102/54 L 100 12/23/24 02:00 73 93/50 L 12/23/24 02:00 99.0 F 73 21 H 93/50 L 100 12/23/24 02:00 71 12/23/24 01:41 77 110/65 12/23/24 01:40 99.1 F 76 100 12/23/24 01:15 99.3 F 68 23 H 12/23/24 00:00 99.5 F 68 20 126/93 H 100 12/23/24 00:00 63 12/23/24 00:00 100 Room Air 12/23/24 00:00 72 126/63 12/22/24 23:36 99.7 F H 68 24 H 100 12/22/24 23:30 99.7 F H 69 23 H 101/58 L 100 12/22/24 23:25 99.7 F H 68 23 H 100 12/22/24 22:45 80 125/61 12/22/24 22:00 100.1 F H 83 23 H 137/84 100 12/22/24 22:00 83 12/22/24 22:00 83 137/84 12/22/24 21:46 100.3 F H 85 23 H 12/22/24 21:45 100.3 F H 85 24 H 139/84 12/22/24 21:31 100.5 F H 85 29 H 120/83 96 12/22/24 21:30 100.5 F H 88 32 H 12/22/24 21:19 86 146/78 H 12/22/24 21:16 100.7 F H 86 29 H 146/78 H 100 12/22/24 21:15 100.7 F H 87 34 H 100 12/22/24 21:01 100.7 F H 12/22/24 21:00 101.0 F H 12/22/24 20:45 101.1 F H 79 33 H 100 12/22/24 20:31 101.1 F H 83 37 H 100 12/22/24 20:30 101.1 F H 86 36 H 134/115 H 12/22/24 20:17 88 84/57 L 12/22/24 20:16 101.2 F H 89 36 H 100 12/22/24 20:15 101.1 F H 88 31 H 84/57 L 12/22/24 20:01 101.1 F H 94 44 H 100 12/22/24 20:01 101.1 F H 12/22/24 20:00 101.0 F H 91 26 H 92/70 L 92 12/22/24 20:00 101.1 F H 88 28 H 92/70 L 98 12/22/24 20:00 89 12/22/24 20:00 98 Room Air 12/22/24 20:00 90 92/70 L 12/22/24 19:58 101.0 F H 89 27 H 95/46 L 100 12/22/24 19:46 101.0 F H 90 38 H 77/50 L 100 12/22/24 19:45 101.0 F H 87 35 H 12/22/24 19:31 100.9 F H 91 32 H 100 12/22/24 19:30 100.9 F H 91 42 H 109/76 100 12/22/24 19:16 100.9 F H 89 36 H 100 12/22/24 19:15 100.9 F H 89 33 H 100/68 100 12/22/24 19:01 100.8 F H 92 31 H 100 12/22/24 19:00 100.8 F H 89 25 H 118/52 L 100 12/22/24 18:52 94 79/57 L 12/22/24 18:00 95 95/49 L 12/22/24 18:00 100.5 F H 95 30 H 95/49 L 100 12/22/24 18:00 95 12/22/24 16:00 94 12/22/24 16:00 99 Room Air 12/22/24 16:00 99.9 F H 90 30 H 86/66 L 99 12/22/24 16:00 90 86/66 L 12/22/24 14:00 79 95/51 L 12/22/24 14:00 99.7 F H 79 20 96/51 L 99 12/22/24 14:00 79 Intake/Output Intake/Output: Intake & Output 12/20/24 12/21/24 12/22/24 12/23/24 23:59 23:59 23:59 23:59 Intake Total 3949 1744.7 4084.3 1766.2 Output Total 225 1400 1600 1200 Balance 3724 344.7 2484.3 566.2 Meds/Results Medications: Active Medications Generic Name Dose Route Start Last Admin Trade Name Freq PRN Reason Stop Dose Admin Acetaminophen 650 mg 12/21/24 09:45 12/22/24 20:01 Acetaminophen Elixir 325 Mg/10.15 Ml Udc FEED TUBE 650 mg Q4H PRN Administration Pain (Scale Score 1-3)/fever Albuterol 2 puff 12/21/24 09:46 Albuterol Sulfate (*Sp) Aerosol 1 Puff INHALATION PRN PRN Wheezing Ascorbic Acid 500 mg 12/21/24 09:50 12/23/24 08:57 Ascorbic Acid 500 Mg Tablet FEED TUBE 500 mg DAILY SANDRA Administration Aspirin 81 mg 12/21/24 09:50 12/22/24 08:48 Aspirin 81 Mg Chewable Tablet FEED TUBE 81 mg DAILY SANDRA Administration Atorvastatin Calcium 80 mg 12/21/24 21:00 12/22/24 20:02 Atorvastatin 40 Mg Tablet FEED TUBE 80 mg HS SANDRA Administration Bisacodyl 10 mg 12/21/24 09:40 Bisacodyl 10 Mg Suppository RECTAL DAILY PRN constipation Dextrose 12.5 gm 12/21/24 23:44 Dextrose 50% 25 Gm/50 Ml Syringe IV PUSH PRN PRN Hypoglycemia Protocol Ezetimibe 10 mg 12/21/24 21:00 12/22/24 20:02 Ezetimibe 10 Mg Tablet FEED TUBE 10 mg HS SANDRA Administration Glucagon 1 mg 12/21/24 23:44 Glucagon For Inj 1 Mg Vial IM PRN PRN Hypoglycemia Protocol Glucose 15 gm 12/21/24 23:44 Glucose Oral Gel 15 Gm Of Glucse In 37.5 Gm Tube PO PRN PRN Hypoglycemia Protocol Hydrocortisone Sodium Succinate 100 mg 12/23/24 08:00 12/23/24 08:54 Hydrocortisone Sodium Succinate 100 Mg/2 Ml Vial IV PUSH 100 mg Q8H SANDRA Administration Piperacillin/Tazobactam/Dextrose 3.375 gm in 50 mls @ 100 mls/hr 12/21/24 10:00 12/23/24 11:43 Zosyn 3.375 Gm/Ns 50 Ml IVPB Infused Q6H SANDRA Infusion Norepinephrine Bitartrate 8 mg in 250 mls @ 0 mls/hr 12/21/24 21:30 12/23/24 12:00 Levophed 8 Mg/D5w 250 Ml IV CONT 0 mcg/min .Q0M SANDRA 0 mls/hr Titration Protocol 0 MCG/MIN Dextrose 1,000 mls @ 100 mls/hr 12/21/24 23:44 Dextrose 5% 1,000 Ml IVPB PRN PRN Hypoglycemia Protocol Vancomycin HCl 750 mg in 250 mls @ 250 mls/hr 12/22/24 11:00 12/23/24 11:44 Vancomycin 750 Mg/Ns 250 Ml IVPB Infused Q12H SANDRA Infusion Albumin Human 100 mls @ 60 mls/hr 12/23/24 08:00 12/23/24 11:43 Albutein IVPB 12/24/24 03:39 Infused Q6H SANDRA Infusion Insulin Aspart 3 - 6 units 12/22/24 20:00 12/23/24 11:40 Insulin Aspart (*Bkc) 100 Units/Ml SUB-Q Not Given Q4H SANDRA Protocol Magnesium Citrate 300 ml 12/21/24 09:40 Magnesium Citrate 300 Ml Btl FEED TUBE DAILY PRN Constipation Midodrine 10 mg 12/23/24 09:00 12/23/24 08:57 Midodrine Hcl 10 Mg Tablet FEED TUBE 10 mg TID SANDRA Administration Pantoprazole Sodium 40 mg 12/21/24 21:00 12/23/24 08:55 Pantoprazole Sodium Iv 40 Mg Vial IV PUSH 40 mg Q12HR SANDRA Administration Silver Sulfadiazine 1 applic 12/21/24 09:50 12/23/24 08:55 Silver Sulfadiazine 1% Cr 400 Gm Jar (*Bkc) TOPICAL 1 applic DAILY SANDRA Administration Sodium Chloride 10 ml 12/20/24 22:00 12/23/24 06:02 Central Line Flush IV PUSH 10 ml Q8HR SANDRA Administration Sodium Chloride 20 ml 12/20/24 17:15 12/23/24 06:02 Central Line Flush IV PUSH 20 ml PRN PRN Administration after blood draws Vancomycin HCl 125 mg 12/21/24 12:00 12/23/24 11:40 Vancomycin Oral 125 Mg/2.5 Ml Syrup FEED TUBE 125 mg Q6HR SANDRA Administration Vitamin D 1,000 units 12/21/24 09:50 12/23/24 08:57 Cholecalciferol 1,000 Units Tablet FEED TUBE 1,000 units DAILY SANDRA Administration Radiology Results: ITS Impressions Head CT 12/20/24 16:30 IMPRESSION: No acute intracranial findings. Chest/Abdomen/Pelvis CT 12/20/24 16:42 IMPRESSION: CHEST: 1. Highly suggestive of pneumonia in the right lower lobe. 2. No evidence of pulmonary embolism or dissection. ABDOMEN/PELVIS: 1. No evidence of appendicitis, diverticulitis or intestinal obstruction. 2. Fluid in the large bowel which may indicate diarrhea versus enteritis. Clinical correlation advised. 3. Multiple fibroids. 4. Compression fracture of L4 which may be acute or chronic. MRI is advised. 5. Severe atherosclerotic changes of the iliac arteries. Severe stenosis of both iliac arteries. Chest X-Ray 12/20/24 17:34 IMPRESSION: Right subclavian central venous catheter in good position and ready for immediate use Labs Labs: Laboratory Tests 12/23/24 05:56 12/23/24 05:56 Calcium 8.2 L Phosphorus 2.0 L Magnesium 1.9 Total Bilirubin 0.5 AST 21 ALT 18 Alkaline Phosphatase 47 Total Protein 5.0 L Albumin 3.3 L Microbiology 12/21/24 04:57 Abdomen Anaerobic Culture - Preliminary 12/21/24 04:57 Abdomen Aerobic Culture - Preliminary
--- NOTE | 2024-12-23 10:35 | PCFNICU ---
Addendum entered by Suzanne Pichardo, DANIEL, LDN 12/23/24 10:49: ICU Rounding Note: Pt current nutrition is Jevity 1.5 @ 50 ml/h with flushes 200 ml q 4 hours (per nephrology). Banatrol supplements BID for c-diff diarrhea Nutrition recommendation: No new nutrition recommendations. Continue with current nutrition orders. Agree with orders Last recorded weight is 41.9 kg. Bowel Motility: +c-diff. Liquid stool, +1 so far today Labs Reviewed: Hgb 7.4, Hct 24.3, Na 147, Alb 3.3, Na 147, Cre 0.35, PO4 2.0 Meds Noted: Levophed, Vit D, Vanco Skin: Stage III R knee - will address when more stable Additional Notes: Continues on room air. Nonverbal patient with existing PEG tube. Sodium down from 161. TF Jevity 1.5 @ 50 ml/h provides 1650 kcal, 70 g protein, 836 ml free water. Adequate for needs. Continue to monitor Following daily in ICU rounds. Will monitor weight, labs, skin, diet orders, meds every Wednesday and Wednesday. . Original Note: ICU Rounding Note: Pt current nutrition is Jevity 1.5 @ 50 ml/h with flushes 200 ml q 4 hours (per nephrology). Banatrol supplements BID for c-diff diarrhea Nutrition recommendation: No new nutrition recommendations. Continue with current nutrition orders. Agree with orders Last recorded weight is 41.9 kg. Bowel Motility: +c-diff. Liquid stool, +1 so far today Labs Reviewed: Hgb 7.4, Hct 24.3, Na 147, Alb 3.3, Na 147, Cre 0.35, PO4 2.0 Meds Noted: Levophed, Vit D, Vanco Skin: Stage III R knee - will address when more stable Additional Notes: Continues on room air. Nonverbal patient with existing PEG tube. Sodium down from 161. Continue to monitor Following daily in ICU rounds. Will monitor weight, labs, skin, diet orders, meds every Wednesday and Wednesday. .
[2024-12-23 11:22] LABS: Glucose Point of Care 154 mg/dl (65-105)
[2024-12-23 14:06] LABS: Iron < 10 ug/dL (37-170)
--- NOTE | 2024-12-23 14:15 | P.CONGI_ITS ---
Assessment and Plan Assessment and plan (1) Anemia: Code(s): D64.9 - Anemia, unspecified Status: Acute Assessment and Plan: The patient's anemia is multifactorial, primarily attributed to her sepsis and critical condition, which can lead to a daily hemoglobin decrease of up to 0.5 points. Decreased erythropoiesis likely plays a significant role as well in critical patients with sepsis. Iron studies have been ordered, but even if iron deficiency is identified, it could also be explained by her critical state. Given her current critical condition and vasopressor-dependent sepsis, no endoscopic procedures are indicated at this time, even if iron deficiency is confirmed. Once the patient stabilizes and is transferred out of the intensive care unit, we may consider performing a colonoscopy and EGD. GI Consult Note Consult date/time: 12/23/24 14:15 HPI: Marilyn Ram, a 64-year-old female, was admitted on December 20, 2024, from her care home due to altered mental status. 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 She was admitted to the ICU with sepsis secondary to a UTI and pneumonia, and is currently receiving vancomycin, Levaquin, Zosyn, and Flagyl. Additionally, she is receiving vancomycin via PEG tube for C. difficile. Norepinephrine and midodrine are being used to maintain her blood pressure. The reason for the current consultation is a hemoglobin of 7.4 today and heme- positive stools, though there's no history of acute bleeding, including melena or hematochezia. Review of Systems 2 Review of Systems: All systems reviewed & are unremarkable except as noted in HPI and below PMFSH Past Medical History Medical History (Updated 12/23/24 @ 14:20 by Walker Adame MD) Right upper quadrant abdominal abscess History of acute cholecystitis Chronic anemia Dyslipidemia Chronic obstructive pulmonary disease Cerebrovascular accident complicated by intracranial hemorrhage with resultant right-sided weakness, dysphagia, and expressive aphasia Reflux esophagitis High cholesterol Hypertension Depression Surgical History Surgical History History of incision and drainage History of insertion of cholecystostomy tube History of gastrostomy tube placement History of esophagogastroduodenoscopy (EGD) (05/2021) Hiatal hernia and reflux esophagitis History of ankle surgery Family History Family History Other Cancer Cerebrovascular accident Diabetes mellitus Heart disease Hypertension Social History Social History Social History: Surrogate medical decision maker: Rudy Ram, son. Code status: FULL CODE. Smoking packs per day: 0.5 Smoking cigarettes per day: 10.0 Smoking status: Unknown if ever smoked Alcohol intake: unknown Substance use: unknown Substance use type: does not use Living arrangements: care home Additional living arrangements comments: . She has 2 sons. Additional occupation/education comments: Disabled. Spiritual care concerns: No Meds Home Medications and Allergies Home Medications ?Medication ?Instructions ?Recorded ?Confirmed ?Type aspirin 81 mg chewable tablet 81 mg feeding tube DAILY 01/16/21 12/21/24 History atorvastatin 80 mg tablet 80 mg feeding tube HS 01/16/21 12/21/24 History cholecalciferol (vitamin D3) 25 25 mcg feeding tube DAILY 01/16/21 12/21/24 History mcg (1,000 unit) capsule famotidine 20 mg tablet 20 mg feeding tube BID 01/16/21 12/21/24 History ondansetron HCl 4 mg tablet 4 mg feeding tube Q6H PRN Nausea 05/06/21 12/21/24 History (Zofran) And Vomiting Ventolin HFA 2 puff inhalation PRN PRN Wheezing 01/23/23 12/21/24 History acetaminophen 650 mg feeding tube Q4H PRN Pain 01/23/23 12/21/24 History (Scale Score 1-3)/fever ascorbic acid (vitamin C) 500 mg 500 mg feeding tube DAILY 01/23/23 12/21/24 History tablet (Vitamin C) carvedilol 6.25 mg tablet 6.25 mg feeding tube BID 01/23/23 12/21/24 History ferrous sulfate 220 mg (44 mg 330 mg feeding tube BID 01/23/23 12/21/24 History iron)/5 mL oral elixir magnesium citrate 300 ml feeding tube DAILY PRN 01/23/23 12/21/24 History Constipation bisacodyl 10 mg rectal suppository 10 mg RECTAL DAILY PRN constipation 09/11/24 12/21/24 History ezetimibe 10 mg tablet 10 mg feeding tube .every bedtime 09/11/24 12/21/24 History lisinopril 5 mg tablet 5 mg feeding tube DAILY 09/11/24 12/21/24 History silver sulfadiazine 1 % topical 1 applic topical DAILY 09/11/24 12/21/24 History cream sodium phosphates 19 gram-7 118 ml RECTAL DAILY PRN 09/11/24 12/21/24 History gram/118 mL enema (Fleet Enema) constipation Allergies Allergy/AdvReac Type Severity Reaction Status Date / Time No Known Allergies Allergy Verified 09/11/24 15:34 Vital Signs Vital Signs - 24 hr 12/22/24 16:00 12/22/24 16:00 12/22/24 16:00 Temperature 99.9 F H Pulse Rate 90 90 Respiratory Rate 30 H Blood Pressure 86/66 L 86/66 L Pulse Oximetry 99 99 Oxygen Delivery Room Air 12/22/24 16:00 12/22/24 18:00 12/22/24 18:00 Temperature 100.5 F H Pulse Rate 94 95 95 Respiratory Rate 30 H Blood Pressure 95/49 L Pulse Oximetry 100 Oxygen Delivery 12/22/24 18:00 12/22/24 18:52 12/22/24 19:00 Temperature 100.8 F H Pulse Rate 95 94 89 Respiratory Rate 25 H Blood Pressure 95/49 L 79/57 L 118/52 L Pulse Oximetry 100 Oxygen Delivery 12/22/24 19:01 12/22/24 19:15 12/22/24 19:16 Temperature 100.8 F H 100.9 F H 100.9 F H Pulse Rate 92 89 89 Respiratory Rate 31 H 33 H 36 H Blood Pressure 100/68 Pulse Oximetry 100 100 100 Oxygen Delivery 12/22/24 19:30 12/22/24 19:31 12/22/24 19:45 Temperature 100.9 F H 100.9 F H 101.0 F H Pulse Rate 91 91 87 Respiratory Rate 42 H 32 H 35 H Blood Pressure 109/76 Pulse Oximetry 100 100 Oxygen Delivery 12/22/24 19:46 12/22/24 19:58 12/22/24 20:00 Temperature 101.0 F H 101.0 F H Pulse Rate 90 89 90 Respiratory Rate 38 H 27 H Blood Pressure 77/50 L 95/46 L 92/70 L Pulse Oximetry 100 100 Oxygen Delivery 12/22/24 20:00 12/22/24 20:00 12/22/24 20:00 Temperature 101.1 F H Pulse Rate 89 88 Respiratory Rate 28 H Blood Pressure 92/70 L Pulse Oximetry 98 98 Oxygen Delivery Room Air 12/22/24 20:00 12/22/24 20:01 12/22/24 20:01 Temperature 101.0 F H 101.1 F H 101.1 F H Pulse Rate 91 94 Respiratory Rate 26 H 44 H Blood Pressure 92/70 L Pulse Oximetry 92 100 Oxygen Delivery 12/22/24 20:15 12/22/24 20:16 12/22/24 20:17 Temperature 101.1 F H 101.2 F H Pulse Rate 88 89 88 Respiratory Rate 31 H 36 H Blood Pressure 84/57 L 84/57 L Pulse Oximetry 100 Oxygen Delivery 12/22/24 20:30 12/22/24 20:31 12/22/24 20:45 Temperature 101.1 F H 101.1 F H 101.1 F H Pulse Rate 86 83 79 Respiratory Rate 36 H 37 H 33 H Blood Pressure 134/115 H Pulse Oximetry 100 100 Oxygen Delivery 12/22/24 21:00 12/22/24 21:01 12/22/24 21:15 Temperature 101.0 F H 100.7 F H 100.7 F H Pulse Rate 87 Respiratory Rate 34 H Blood Pressure Pulse Oximetry 100 Oxygen Delivery 12/22/24 21:16 12/22/24 21:19 12/22/24 21:30 Temperature 100.7 F H 100.5 F H Pulse Rate 86 86 88 Respiratory Rate 29 H 32 H Blood Pressure 146/78 H 146/78 H Pulse Oximetry 100 Oxygen Delivery 12/22/24 21:31 12/22/24 21:45 12/22/24 21:46 Temperature 100.5 F H 100.3 F H 100.3 F H Pulse Rate 85 85 85 Respiratory Rate 29 H 24 H 23 H Blood Pressure 120/83 139/84 Pulse Oximetry 96 Oxygen Delivery 12/22/24 22:00 12/22/24 22:00 12/22/24 22:00 Temperature 100.1 F H Pulse Rate 83 83 83 Respiratory Rate 23 H Blood Pressure 137/84 137/84 Pulse Oximetry 100 Oxygen Delivery 12/22/24 22:45 12/22/24 23:25 12/22/24 23:30 Temperature 99.7 F H 99.7 F H Pulse Rate 80 68 69 Respiratory Rate 23 H 23 H Blood Pressure 125/61 101/58 L Pulse Oximetry 100 100 Oxygen Delivery 12/22/24 23:36 12/23/24 00:00 12/23/24 00:00 Temperature 99.7 F H Pulse Rate 68 72 Respiratory Rate 24 H Blood Pressure 126/63 Pulse Oximetry 100 100 Oxygen Delivery Room Air 12/23/24 00:00 12/23/24 00:00 12/23/24 01:15 Temperature 99.5 F 99.3 F Pulse Rate 63 68 68 Respiratory Rate 20 23 H Blood Pressure 126/93 H Pulse Oximetry 100 Oxygen Delivery 12/23/24 01:40 12/23/24 01:41 12/23/24 02:00 Temperature 99.1 F Pulse Rate 76 77 71 Respiratory Rate Blood Pressure 110/65 Pulse Oximetry 100 Oxygen Delivery 12/23/24 02:00 12/23/24 02:00 12/23/24 02:30 Temperature 99.0 F 99.0 F Pulse Rate 73 73 72 Respiratory Rate 21 H 20 Blood Pressure 93/50 L 93/50 L 102/54 L Pulse Oximetry 100 100 Oxygen Delivery 12/23/24 03:00 12/23/24 03:25 12/23/24 03:30 Temperature 99.2 F 99.1 F Pulse Rate 71 76 74 Respiratory Rate 22 H 22 H Blood Pressure 113/62 117/65 109/63 Pulse Oximetry 100 100 Oxygen Delivery 12/23/24 04:00 12/23/24 04:00 12/23/24 04:00 Temperature 99.1 F Pulse Rate 89 91 Respiratory Rate 22 H Blood Pressure 96/80 L Pulse Oximetry 100 100 Oxygen Delivery 12/23/24 04:30 12/23/24 04:31 12/23/24 05:00 Temperature 99.2 F 99.5 F Pulse Rate 82 79 91 Respiratory Rate 21 H 26 H Blood Pressure 113/62 113/62 99/83 L Pulse Oximetry 100 100 Oxygen Delivery 12/23/24 05:30 12/23/24 06:00 12/23/24 06:24 Temperature 99.8 F H Pulse Rate 80 86 85 Respiratory Rate 23 H Blood Pressure 106/64 133/71 Pulse Oximetry 100 Oxygen Delivery 12/23/24 06:24 12/23/24 06:50 12/23/24 07:08 Temperature 99.9 F H Pulse Rate 84 78 76 Respiratory Rate 22 H Blood Pressure 114/66 83/65 L 83/45 L Pulse Oximetry 100 Oxygen Delivery 12/23/24 08:00 12/23/24 08:00 12/23/24 08:00 Temperature 100.2 F H Pulse Rate 98 81 Respiratory Rate 24 H Blood Pressure 108/53 L 131/57 L Pulse Oximetry 100 100 Oxygen Delivery 12/23/24 08:00 12/23/24 08:54 12/23/24 09:07 Temperature Pulse Rate 81 82 79 Respiratory Rate Blood Pressure 126/58 L 116/63 Pulse Oximetry Oxygen Delivery 12/23/24 10:00 12/23/24 10:00 12/23/24 10:00 Temperature Pulse Rate 94 95 95 Respiratory Rate 26 H Blood Pressure 123/52 L 123/52 L Pulse Oximetry 100 Oxygen Delivery 12/23/24 12:00 12/23/24 12:00 12/23/24 12:00 Temperature 100.1 F H Pulse Rate 79 71 Respiratory Rate 21 H Blood Pressure 117/51 L 117/51 L Pulse Oximetry 100 97 Oxygen Delivery 12/23/24 12:00 Temperature Pulse Rate 69 Respiratory Rate Blood Pressure Pulse Oximetry Oxygen Delivery Exam 2 Narrative: General: Pt is malnourished cachectic old frail female who is not in any distress and is not communicated Lungs/Chest: Trachea central Clear BS B/L, No crackles or wheezing. Cardiac: RRR. Normal S1 S2. No murmurs Circulation: Pedal pulses are intact and symmetrical. Abdomen: Normal bowel sounds.. Soft. NT. ND. There is a fistula/wound on the abdominal wall and right upper quadrant with minimal amount of clear drainage under the dressing. There is a PEG tube in place Extremities: No clubbing, cyanosis or edema. Warm : Marquis in place Neurologic: Pupils are unequal but both reactive to light left is bigger than right, dysconjugate gaze, she moves all 4 extremities but left more than right, does not follow command, does not answer any course, does not exhibit purposeful movement, she has contractures of right upper and right lower extremities, right lower extremities contracture did flexion position at the hip Skin: No Rash Results Labs 12/23/24 05:56 12/23/24 05:56 Labs: Short CBC 12/23/24 Range/Units 05:56 WBC 6.9 (4.5-10.0) K/mm3 Hgb 7.4 L (12.0-15.0) g/dL Hct 24.3 L (37.0-47.0) % Plt Count 84 L (150-375) k/mm3 BMP 12/22/24 12/23/24 12/23/24 17:35 00:43 05:56 Sodium 148 H 147 H 147 H Potassium 4.4 3.9 3.9 Chloride 122 H 119 H 118 H Carbon Dioxide 19 L 21 L 22 BUN 18 H 17 14 Creatinine 0.42 L 0.31 L 0.35 L Glucose 202 H 146 H 108 Calcium 8.2 L 8.1 L 8.2 L Liver Function 12/23/24 Range/Units 05:56 Total Bilirubin 0.5 (0.2-1.3) mg/dL AST 21 (14-36) U/L ALT 18 (6-35) U/L Alkaline Phosphatase 47 (38-126) U/L Albumin 3.3 L (3.5-5.1) g/dL
[2024-12-23 14:18] LABS: Percent Iron Saturation < 8 % (20-50)
--- NOTE | 2024-12-23 15:29 | P.PNIM_ITS ---
Progress Note: A&P Assessment and Plan (1) Septic shock: Code(s): A41.9 - Sepsis, unspecified organism; R65.21 - Severe sepsis with septic shock Status: Acute Assessment and Plan: Sepsis secondary to pneumonia, ? Questionable UTI and also dehydration from C diff ascended diarrhea Her pneumonia could be also be aspiration since she is on tube feeds She is off IV fluids now but continues to require low-dose Levophed to maintain her mean arterial pressure Continue 25% albumin and midodrine And hydrocortisone Blood cultures and urine cultures have been sent and are pending She is currently on vancomycin and Zosyn Stool positive for C diff and she is on per tube vancomycin (2) Gastrostomy status: Code(s): Z93.1 - Gastrostomy status Status: Acute Assessment and Plan: Continue tube feeding (3) Right upper quadrant abdominal abscess: Code(s): K65.1 - Peritoneal abscess Status: Acute Assessment and Plan: Patient had a cholecystostomy tube placed for cholecystitis in 2020. 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 This is a chronic issue Continue antibiotics, local wound care and open draining Patient was evaluated by General surgery 2 months ago and due to her being a poor candidate for any surgical intervention they recommended conservative management with local wound care and antibiotic. Site does not look infected as there is no redness or erythema around it (4) Acute hypernatremia: Code(s): E87.0 - Hyperosmolality and hypernatremia Status: Acute Assessment and Plan: Hypernatremia secondary to dehydration She presented with sodium of 168. Nephrology was consulted and has been managing fluids and correction of hyponatremia Sodium has improved and patient is now off of IV fluids. I will increase the free water flush to 200 (5) CVA (cerebral vascular accident): Code(s): I63.9 - Cerebral infarction, unspecified Status: Acute Assessment and Plan: History of CVA. Continue statin. Hold aspirin due to drop in hemoglobin (6) Pneumonia: Code(s): J18.9 - Pneumonia, unspecified organism Status: Acute Assessment and Plan: See above (7) Reflux esophagitis: Qualifiers: Esophagitis bleeding: without hemorrhage Qualified Code(s): K21.00 - Gastro-esophageal reflux disease with esophagitis, without bleeding Code(s): K21.00 - Gastro-esophageal reflux disease with esophagitis, without bleeding Status: Chronic Assessment and Plan: PPI (8) Dehydration: Code(s): E86.0 - Dehydration Status: Acute Assessment and Plan: See above (9) Diarrhea: Code(s): R19.7 - Diarrhea, unspecified Status: Acute Assessment and Plan: Positive for C diff Continue per tube vancomycin FMS (10) Electrolyte abnormality: Code(s): E87.8 - Other disorders of electrolyte and fluid balance, not elsewhere clas sified Status: Acute Assessment and Plan: Replacement of low phosphate ordered (11) Anemia: Qualifiers: Anemia type: unspecified type Qualified Code(s): D64.9 - Anemia, unspec ified Code(s): D64.9 - Anemia, unspecified Status: Acute Assessment and Plan: Patient has Chronic anemia but patient presented with normal hemoglobin level likely secondary to hemoconcentration which decreased suspected after patient received IV fluids Hemoglobin had stabilized in closed of 9 but further drops 0.4 today She had a positive Hemoccult at the time of presentation but her stools are mostly brown I will hold aspirin Continue monitor hemoglobin and transfuse if needed Continue Protonix IV q.12 hours GI consult Subjective Date/time seen: 12/23/24 15:29 Interval history: Patient still requiring low dose of Levophed. Review of Systems Review of Systems: ROS unobtainable: Yes unobtainable due to medical condition and unobtainable due to mental status Exam Narrative: General: Pt is malnourished cachectic old frail female who is not in any distress and is not communicated Lungs/Chest: Trachea central Clear BS B/L, No crackles or wheezing. Cardiac: RRR. Normal S1 S2. No murmurs Circulation: Pedal pulses are intact and symmetrical. Abdomen: Normal bowel sounds.. Soft. NT. ND. There is a fistula/wound on the abdominal wall and right upper quadrant with minimal amount of clear drainage under the dressing. There is a PEG tube in place Extremities: No clubbing, cyanosis or edema. Warm : Marquis in place Neurologic: Pupils are unequal but both reactive to light left is bigger than right, dysconjugate gaze, she moves all 4 extremities but left more than right, does not follow command, does not answer any course, does not exhibit purposeful movement, she has contractures of right upper and right lower extremities, right lower extremities contracture did flexion position at the hip Skin: No Rash Objective Data Vital Signs Vital Signs: Vital Signs - 24 hr 12/22/24 16:00 12/22/24 16:00 12/22/24 16:00 Temperature 99.9 F H Pulse Rate 90 90 Respiratory Rate 30 H Blood Pressure 86/66 L 86/66 L Pulse Oximetry 99 99 Oxygen Delivery Room Air 12/22/24 16:00 12/22/24 18:00 12/22/24 18:00 Temperature 100.5 F H Pulse Rate 94 95 95 Respiratory Rate 30 H Blood Pressure 95/49 L Pulse Oximetry 100 Oxygen Delivery 12/22/24 18:00 12/22/24 18:52 12/22/24 19:00 Temperature 100.8 F H Pulse Rate 95 94 89 Respiratory Rate 25 H Blood Pressure 95/49 L 79/57 L 118/52 L Pulse Oximetry 100 Oxygen Delivery 12/22/24 19:01 12/22/24 19:15 12/22/24 19:16 Temperature 100.8 F H 100.9 F H 100.9 F H Pulse Rate 92 89 89 Respiratory Rate 31 H 33 H 36 H Blood Pressure 100/68 Pulse Oximetry 100 100 100 Oxygen Delivery 12/22/24 19:30 12/22/24 19:31 12/22/24 19:45 Temperature 100.9 F H 100.9 F H 101.0 F H Pulse Rate 91 91 87 Respiratory Rate 42 H 32 H 35 H Blood Pressure 109/76 Pulse Oximetry 100 100 Oxygen Delivery 12/22/24 19:46 12/22/24 19:58 12/22/24 20:00 Temperature 101.0 F H 101.0 F H Pulse Rate 90 89 90 Respiratory Rate 38 H 27 H Blood Pressure 77/50 L 95/46 L 92/70 L Pulse Oximetry 100 100 Oxygen Delivery 12/22/24 20:00 12/22/24 20:00 12/22/24 20:00 Temperature 101.1 F H Pulse Rate 89 88 Respiratory Rate 28 H Blood Pressure 92/70 L Pulse Oximetry 98 98 Oxygen Delivery Room Air 12/22/24 20:00 12/22/24 20:01 12/22/24 20:01 Temperature 101.0 F H 101.1 F H 101.1 F H Pulse Rate 91 94 Respiratory Rate 26 H 44 H Blood Pressure 92/70 L Pulse Oximetry 92 100 Oxygen Delivery 12/22/24 20:15 12/22/24 20:16 12/22/24 20:17 Temperature 101.1 F H 101.2 F H Pulse Rate 88 89 88 Respiratory Rate 31 H 36 H Blood Pressure 84/57 L 84/57 L Pulse Oximetry 100 Oxygen Delivery 12/22/24 20:30 12/22/24 20:31 12/22/24 20:45 Temperature 101.1 F H 101.1 F H 101.1 F H Pulse Rate 86 83 79 Respiratory Rate 36 H 37 H 33 H Blood Pressure 134/115 H Pulse Oximetry 100 100 Oxygen Delivery 12/22/24 21:00 12/22/24 21:01 12/22/24 21:15 Temperature 101.0 F H 100.7 F H 100.7 F H Pulse Rate 87 Respiratory Rate 34 H Blood Pressure Pulse Oximetry 100 Oxygen Delivery 12/22/24 21:16 12/22/24 21:19 12/22/24 21:30 Temperature 100.7 F H 100.5 F H Pulse Rate 86 86 88 Respiratory Rate 29 H 32 H Blood Pressure 146/78 H 146/78 H Pulse Oximetry 100 Oxygen Delivery 12/22/24 21:31 12/22/24 21:45 12/22/24 21:46 Temperature 100.5 F H 100.3 F H 100.3 F H Pulse Rate 85 85 85 Respiratory Rate 29 H 24 H 23 H Blood Pressure 120/83 139/84 Pulse Oximetry 96 Oxygen Delivery 12/22/24 22:00 12/22/24 22:00 12/22/24 22:00 Temperature 100.1 F H Pulse Rate 83 83 83 Respiratory Rate 23 H Blood Pressure 137/84 137/84 Pulse Oximetry 100 Oxygen Delivery 12/22/24 22:45 12/22/24 23:25 12/22/24 23:30 Temperature 99.7 F H 99.7 F H Pulse Rate 80 68 69 Respiratory Rate 23 H 23 H Blood Pressure 125/61 101/58 L Pulse Oximetry 100 100 Oxygen Delivery 12/22/24 23:36 12/23/24 00:00 12/23/24 00:00 Temperature 99.7 F H Pulse Rate 68 72 Respiratory Rate 24 H Blood Pressure 126/63 Pulse Oximetry 100 100 Oxygen Delivery Room Air 12/23/24 00:00 12/23/24 00:00 12/23/24 01:15 Temperature 99.5 F 99.3 F Pulse Rate 63 68 68 Respiratory Rate 20 23 H Blood Pressure 126/93 H Pulse Oximetry 100 Oxygen Delivery 12/23/24 01:40 12/23/24 01:41 12/23/24 02:00 Temperature 99.1 F Pulse Rate 76 77 71 Respiratory Rate Blood Pressure 110/65 Pulse Oximetry 100 Oxygen Delivery 12/23/24 02:00 12/23/24 02:00 12/23/24 02:30 Temperature 99.0 F 99.0 F Pulse Rate 73 73 72 Respiratory Rate 21 H 20 Blood Pressure 93/50 L 93/50 L 102/54 L Pulse Oximetry 100 100 Oxygen Delivery 12/23/24 03:00 12/23/24 03:25 12/23/24 03:30 Temperature 99.2 F 99.1 F Pulse Rate 71 76 74 Respiratory Rate 22 H 22 H Blood Pressure 113/62 117/65 109/63 Pulse Oximetry 100 100 Oxygen Delivery 12/23/24 04:00 12/23/24 04:00 12/23/24 04:00 Temperature 99.1 F Pulse Rate 89 91 Respiratory Rate 22 H Blood Pressure 96/80 L Pulse Oximetry 100 100 Oxygen Delivery 12/23/24 04:30 12/23/24 04:31 12/23/24 05:00 Temperature 99.2 F 99.5 F Pulse Rate 82 79 91 Respiratory Rate 21 H 26 H Blood Pressure 113/62 113/62 99/83 L Pulse Oximetry 100 100 Oxygen Delivery 12/23/24 05:30 12/23/24 06:00 12/23/24 06:24 Temperature 99.8 F H Pulse Rate 80 86 85 Respiratory Rate 23 H Blood Pressure 106/64 133/71 Pulse Oximetry 100 Oxygen Delivery 12/23/24 06:24 12/23/24 06:50 12/23/24 07:08 Temperature 99.9 F H Pulse Rate 84 78 76 Respiratory Rate 22 H Blood Pressure 114/66 83/65 L 83/45 L Pulse Oximetry 100 Oxygen Delivery 12/23/24 08:00 12/23/24 08:00 12/23/24 08:00 Temperature 100.2 F H Pulse Rate 98 81 Respiratory Rate 24 H Blood Pressure 108/53 L 131/57 L Pulse Oximetry 100 100 Oxygen Delivery 12/23/24 08:00 12/23/24 08:54 12/23/24 09:07 Temperature Pulse Rate 81 82 79 Respiratory Rate Blood Pressure 126/58 L 116/63 Pulse Oximetry Oxygen Delivery 12/23/24 10:00 12/23/24 10:00 12/23/24 10:00 Temperature Pulse Rate 94 95 95 Respiratory Rate 26 H Blood Pressure 123/52 L 123/52 L Pulse Oximetry 100 Oxygen Delivery 12/23/24 12:00 12/23/24 12:00 12/23/24 12:00 Temperature 100.1 F H Pulse Rate 79 71 Respiratory Rate 21 H Blood Pressure 117/51 L 117/51 L Pulse Oximetry 100 97 Oxygen Delivery 12/23/24 12:00 12/23/24 14:00 12/23/24 14:00 Temperature 99.6 F Pulse Rate 69 77 77 Respiratory Rate 23 H Blood Pressure 138/72 Pulse Oximetry 100 Oxygen Delivery 12/23/24 14:00 Temperature Pulse Rate 77 Respiratory Rate Blood Pressure 138/72 Pulse Oximetry Oxygen Delivery Intake/Output Intake/Output: Intake & Output 12/20/24 12/21/24 12/22/24 12/23/24 23:59 23:59 23:59 23:59 Intake Total 3949 1744.7 4084.3 1866.2 Output Total 225 1400 1600 1200 Balance 3724 344.7 2484.3 666.2 Meds/Results Medications: Active Medications Generic Name Dose Route Start Last Admin Trade Name Freq PRN Reason Stop Dose Admin Acetaminophen 650 mg 12/21/24 09:45 12/22/24 20:01 Acetaminophen Elixir 325 Mg/10.15 Ml Udc FEED TUBE 650 mg Q4H PRN Administration Pain (Scale Score 1-3)/fever Albuterol 2 puff 12/21/24 09:46 Albuterol Sulfate (*Sp) Aerosol 1 Puff INHALATION PRN PRN Wheezing Ascorbic Acid 500 mg 12/21/24 09:50 12/23/24 08:57 Ascorbic Acid 500 Mg Tablet FEED TUBE 500 mg DAILY SANDRA Administration Aspirin 81 mg 12/21/24 09:50 12/22/24 08:48 Aspirin 81 Mg Chewable Tablet FEED TUBE 81 mg DAILY SANDRA Administration Atorvastatin Calcium 80 mg 12/21/24 21:00 12/22/24 20:02 Atorvastatin 40 Mg Tablet FEED TUBE 80 mg HS SANDRA Administration Bisacodyl 10 mg 12/21/24 09:40 Bisacodyl 10 Mg Suppository RECTAL DAILY PRN constipation Dextrose 12.5 gm 12/21/24 23:44 Dextrose 50% 25 Gm/50 Ml Syringe IV PUSH PRN PRN Hypoglycemia Protocol Ezetimibe 10 mg 12/21/24 21:00 12/22/24 20:02 Ezetimibe 10 Mg Tablet FEED TUBE 10 mg HS SANDRA Administration Glucagon 1 mg 12/21/24 23:44 Glucagon For Inj 1 Mg Vial IM PRN PRN Hypoglycemia Protocol Glucose 15 gm 12/21/24 23:44 Glucose Oral Gel 15 Gm Of Glucse In 37.5 Gm Tube PO PRN PRN Hypoglycemia Protocol Hydrocortisone Sodium Succinate 100 mg 12/23/24 08:00 12/23/24 08:54 Hydrocortisone Sodium Succinate 100 Mg/2 Ml Vial IV PUSH 100 mg Q8H SANDRA Administration Piperacillin/Tazobactam/Dextrose 3.375 gm in 50 mls @ 100 mls/hr 12/21/24 10:00 12/23/24 11:43 Zosyn 3.375 Gm/Ns 50 Ml IVPB Infused Q6H SANDRA Infusion Norepinephrine Bitartrate 8 mg in 250 mls @ 0 mls/hr 12/21/24 21:30 12/23/24 14:00 Levophed 8 Mg/D5w 250 Ml IV CONT 0 mcg/min .Q0M SANDRA 0 mls/hr Titration Protocol 0 MCG/MIN Dextrose 1,000 mls @ 100 mls/hr 12/21/24 23:44 Dextrose 5% 1,000 Ml IVPB PRN PRN Hypoglycemia Protocol Vancomycin HCl 750 mg in 250 mls @ 250 mls/hr 12/22/24 11:00 12/23/24 11:44 Vancomycin 750 Mg/Ns 250 Ml IVPB Infused Q12H SANDRA Infusion Albumin Human 100 mls @ 60 mls/hr 12/23/24 08:00 12/23/24 15:18 Albutein IVPB 12/24/24 03:39 Infused Q6H SANDRA Infusion Insulin Aspart 3 - 6 units 12/22/24 20:00 12/23/24 11:40 Insulin Aspart (*Bkc) 100 Units/Ml SUB-Q Not Given Q4H SANDRA Protocol Magnesium Citrate 300 ml 12/21/24 09:40 Magnesium Citrate 300 Ml Btl FEED TUBE DAILY PRN Constipation Midodrine 10 mg 12/23/24 09:00 12/23/24 13:35 Midodrine Hcl 10 Mg Tablet FEED TUBE 10 mg TID SANDRA Administration Pantoprazole Sodium 40 mg 12/21/24 21:00 12/23/24 08:55 Pantoprazole Sodium Iv 40 Mg Vial IV PUSH 40 mg Q12HR SANDRA Administration Silver Sulfadiazine 1 applic 12/21/24 09:50 12/23/24 08:55 Silver Sulfadiazine 1% Cr 400 Gm Jar (*Bkc) TOPICAL 1 applic DAILY SANDRA Administration Sodium Chloride 10 ml 12/20/24 22:00 12/23/24 13:35 Central Line Flush IV PUSH 10 ml Q8HR SANDRA Administration Sodium Chloride 20 ml 12/20/24 17:15 12/23/24 06:02 Central Line Flush IV PUSH 20 ml PRN PRN Administration after blood draws Vancomycin HCl 125 mg 12/21/24 12:00 12/23/24 11:40 Vancomycin Oral 125 Mg/2.5 Ml Syrup FEED TUBE 125 mg Q6HR SANDRA Administration Vitamin D 1,000 units 12/21/24 09:50 12/23/24 08:57 Cholecalciferol 1,000 Units Tablet FEED TUBE 1,000 units DAILY SANDRA Administration Radiology Results: ITS Impressions Head CT 12/20/24 16:30 IMPRESSION: No acute intracranial findings. Chest/Abdomen/Pelvis CT 12/20/24 16:42 IMPRESSION: CHEST: 1. Highly suggestive of pneumonia in the right lower lobe. 2. No evidence of pulmonary embolism or dissection. ABDOMEN/PELVIS: 1. No evidence of appendicitis, diverticulitis or intestinal obstruction. 2. Fluid in the large bowel which may indicate diarrhea versus enteritis. Clinical correlation advised. 3. Multiple fibroids. 4. Compression fracture of L4 which may be acute or chronic. MRI is advised. 5. Severe atherosclerotic changes of the iliac arteries. Severe stenosis of both iliac arteries. Chest X-Ray 12/20/24 17:34 IMPRESSION: Right subclavian central venous catheter in good position and ready for immediate use Labs Labs: Laboratory Results - last 24 hr 12/22/24 12/22/24 12/22/24 16:51 17:35 19:52 WBC RBC Hgb Hct MCV MCH MCHC RDW Plt Count MPV % Immature Plt Fraction Sodium 148 H Potassium 4.4 Chloride 122 H Carbon Dioxide 19 L Anion Gap 7 BUN 18 H Creatinine 0.42 L Estim Creat Clear Calc 65 Estimated GFR > 60 Glucose 202 H POC Capillary Glucose 165 H 173 H Calcium 8.2 L Phosphorus Magnesium Iron TIBC % Saturation Total Bilirubin AST ALT Alkaline Phosphatase Total Protein Albumin 12/23/24 12/23/24 12/23/24 00:08 00:43 04:09 WBC RBC Hgb Hct MCV MCH MCHC RDW Plt Count MPV % Immature Plt Fraction Sodium 147 H Potassium 3.9 Chloride 119 H Carbon Dioxide 21 L Anion Gap 7 BUN 17 Creatinine 0.31 L Estim Creat Clear Calc 84 Estimated GFR > 60 Glucose 146 H POC Capillary Glucose 159 H 110 H Calcium 8.1 L Phosphorus Magnesium Iron TIBC % Saturation Total Bilirubin AST ALT Alkaline Phosphatase Total Protein Albumin 12/23/24 12/23/24 12/23/24 05:56 07:12 11:20 WBC 6.9 RBC 2.90 L Hgb 7.4 L Hct 24.3 L MCV 83.8 MCH 25.5 L MCHC 30.5 L RDW 15.4 H Plt Count 84 L MPV 12.7 H % Immature Plt Fraction 10.8 Sodium 147 H Potassium 3.9 Chloride 118 H Carbon Dioxide 22 Anion Gap 7 BUN 14 Creatinine 0.35 L Estim Creat Clear Calc 87 Estimated GFR > 60 Glucose 108 POC Capillary Glucose 105 154 H Calcium 8.2 L Phosphorus 2.0 L Magnesium 1.9 Iron TIBC % Saturation Total Bilirubin 0.5 AST 21 ALT 18 Alkaline Phosphatase 47 Total Protein 5.0 L Albumin 3.3 L 12/23/24 13:45 WBC RBC Hgb Hct MCV MCH MCHC RDW Plt Count MPV % Immature Plt Fraction Sodium Potassium Chloride Carbon Dioxide Anion Gap BUN Creatinine Estim Creat Clear Calc Estimated GFR Glucose POC Capillary Glucose Calcium Phosphorus Magnesium Iron < 10 L TIBC 121 L % Saturation < 8 L Total Bilirubin AST ALT Alkaline Phosphatase Total Protein Albumin Quality VTE Prophylaxis VTE prophylaxis: mechanical ordered and pharmacologic ordered Hospitalist MIPS Advance Care Plan I have confirmed that the patient's Advanced Care Plan is present, code status is documented, or surrogate decision maker is listed in patient medical record.: Yes Medication Reconciliation I have utilized all available resources to obtain, update and review the patients current medications (includes all prescriptions, OTC, herbals, cannabis, and nutritional supplements).: Yes
[2024-12-23] MEDS: INSULIN ASPART (*BKC) 100 UNITS/ML SUB-Q ×2 (16:23→19:45)
[2024-12-23 16:28] LABS: Glucose Point of Care 285 mg/dl (65-105)
[2024-12-23] MEDS: ONDANSETRON INJ 4 MG/2 ML VIAL IV PUSH (17:10)
[2024-12-23 19:28] LABS: Hematocrit 25.3 % (37.0-47.0); Hemoglobin 7.7 g/dL (12.0-15.0); Immature Platelet Fraction Pct 12.6 % (0.9-11.2); Mean Corpuscular HGB Conc 30.4 g/dl (32-36); Mean Corpuscular Hemoglobin 25.4 pg (26-34); Mean Corpuscular Volume 83.5 fl (80-100); Mean Platelet Volume 13.4 fl (7.4-10.4); Platelet Count Result 94 k/mm3 (150-375); Red Blood Count 3.03 M/mm3 (4.2-5.4); Red Cell Distribution Width 15.2 % (11.5-14.5); White Blood Count 5.9 K/mm3 (4.5-10.0)
[2024-12-23 19:37] LABS: Anion Gap 9 mmol/L (4-12); Blood Urea Nitrogen 15 mg/dL (7-17); Calcium 8.3 mg/dL (8.4-10.2); Carbon Dioxide 22 mmol/L (22-30); Chloride 115 mmol/L (98-107); Estimated CRCL calculation 89 ml/min; Estimated Glomerular Filt Rate > 60; Glucose 235 mg/dL (65-110); Potassium 3.6 mmol/L (3.4-5.0); Sodium 146 mmol/L (137-145)
[2024-12-23] MEDS: EZETIMIBE 10 MG TABLET FEED TUBE (20:04)
[2024-12-23] MEDS: ATORVASTATIN 40 MG TABLET 80 MG FEED TUBE (20:04)
[2024-12-23 22:02] LABS: Vancomycin Trough 8.5 ug/mL (10.0-20.0)
[2024-12-23] MEDS: VANCOMYCIN 1,000 MG/NS 250 ML 1,000 MG/250 ML BAG 250 MG IVPB (22:48)
[2024-12-24] VITALS (28 sets, daily range): BP systolic 87–125; BP diastolic 48–84; PULSE 46–107; RESP 18–26; TEMP 35.9–37; O2SAT 92–100
[2024-12-24] MEDS: ONDANSETRON INJ 4 MG/2 ML VIAL IV PUSH (00:12)
[2024-12-24] MEDS: VANCOMYCIN ORAL 125 MG/2.5 ML SYRUP FEED TUBE ×5 (00:12→23:43)
[2024-12-24] MEDS: HYDROCORTISONE SODIUM SUCCINATE 100 MG/2 ML VIAL IV PUSH ×2 (00:13→08:43)
[2024-12-24] MEDS: INSULIN ASPART (*BKC) 100 UNITS/ML SUB-Q ×5 (00:17→21:08)
--- NOTE | 2024-12-24 00:38 | PC.NURSE ---
Patient vomited approx 100 ml clear/gibbs emesis. Dr Tamayo called to notify and clarify tube feedings. Tube feeding are to remain in at this time.
[2024-12-24 00:52] LABS: Glucose Point of Care 231 mg/dl (65-105)
[2024-12-24 00:52] LABS: Glucose Point of Care 222 mg/dl (65-105)
[2024-12-24] MEDS: ALBUMIN HUMAN 25% 25 GM/100 ML 100 ML IVPB (01:14)
[2024-12-24] MEDS: PIPERACILLN/TAZ 3.375GM/NS50ML 3.375 GM/50 ML BAG IVPB ×4 (03:22→21:08)
[2024-12-24 04:47] LABS: Glucose Point of Care 184 mg/dl (65-105)
[2024-12-24] MEDS: CENTRAL LINE FLUSH 10 ML IV PUSH ×3 (05:46→20:33)
[2024-12-24 05:57] LABS: Hematocrit 23.5 % (37.0-47.0); Hemoglobin 7.1 g/dL (12.0-15.0); Immature Platelet Fraction Pct 11.6 % (0.9-11.2); Mean Corpuscular HGB Conc 30.2 g/dl (32-36); Mean Corpuscular Hemoglobin 25.4 pg (26-34); Mean Corpuscular Volume 83.9 fl (80-100); Mean Platelet Volume 12.5 fl (7.4-10.4); Platelet Count Result 89 k/mm3 (150-375); White Blood Count 4.2 K/mm3 (4.5-10.0)
[2024-12-24] MEDS: VANCOMYCIN 1,000 MG/NS 250 ML 1,000 MG/250 ML BAG 250 MG IVPB ×2 (06:06→18:04)
[2024-12-24 06:09] LABS: Alanine Aminotransferase 16 U/L (6-35); Albumin Level 3.9 g/dL (3.5-5.1); Alkaline Phosphatase 38 U/L (38-126); Anion Gap 10 mmol/L (4-12); Aspartate Amino Transferase 17 U/L (14-36); Bilirubin,Total 0.4 mg/dL (0.2-1.3); Blood Urea Nitrogen 15 mg/dL (7-17); Calcium 8.3 mg/dL (8.4-10.2); Carbon Dioxide 23 mmol/L (22-30); Chloride 113 mmol/L (98-107); Estimated CRCL calculation 91 ml/min; Estimated Glomerular Filt Rate > 60; Glucose 219 mg/dL (65-110); Phosphorus 2.2 mg/dL (2.5-4.5); Potassium 3.2 mmol/L (3.4-5.0); Sodium 146 mmol/L (137-145)
[2024-12-24 07:48] LABS: Glucose Point of Care 228 mg/dl (65-105)
--- NOTE | 2024-12-24 08:32 | WPDINTPN ---
Progress Note: A&P Assessment and Plan (1) Septic shock: Code(s): A41.9 - Sepsis, unspecified organism; R65.21 - Severe sepsis with septic shock Status: Acute Assessment and Plan: Sepsis secondary to pneumonia, ? Questionable UTI and also dehydration from C diff ascended diarrhea Her pneumonia could be also be aspiration since she is on tube feeds She is off IV fluids now and also off of vasopressors She received 25% albumin and continue midodrine Wean off hydrocortisone Blood cultures and urine cultures have been sent and are pending She is currently on vancomycin and Zosyn Stool positive for C diff and she is on per tube vancomycin (2) Gastrostomy status: Code(s): Z93.1 - Gastrostomy status Status: Acute Assessment and Plan: Continue tube feeding (3) Right upper quadrant abdominal abscess: Code(s): K65.1 - Peritoneal abscess Status: Acute Assessment and Plan: Patient had a cholecystostomy tube placed for cholecystitis in 2020. 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 This is a chronic issue Continue antibiotics, local wound care and open draining Patient was evaluated by General surgery 2 months ago and due to her being a poor candidate for any surgical intervention they recommended conservative management with local wound care and antibiotic. Site does not look infected as there is no redness or erythema around it (4) Acute hypernatremia: Code(s): E87.0 - Hyperosmolality and hypernatremia Status: Acute Assessment and Plan: Hypernatremia secondary to dehydration She presented with sodium of 168. Nephrology was consulted and has been managing fluids and correction of hyponatremia Sodium has improved and patient is now off of IV fluids. Continue free water flush to 200 (5) CVA (cerebral vascular accident): Code(s): I63.9 - Cerebral infarction, unspecified Status: Acute Assessment and Plan: History of CVA. Continue statin. Hold aspirin due to drop in hemoglobin (6) Pneumonia: Code(s): J18.9 - Pneumonia, unspecified organism Status: Acute Assessment and Plan: See above (7) Reflux esophagitis: Qualifiers: Esophagitis bleeding: without hemorrhage Qualified Code(s): K21.00 - Gastro-esophageal reflux disease with esophagitis, without bleeding Code(s): K21.00 - Gastro-esophageal reflux disease with esophagitis, without bleeding Status: Chronic Assessment and Plan: PPI (8) Dehydration: Code(s): E86.0 - Dehydration Status: Acute Assessment and Plan: See above (9) Diarrhea: Code(s): R19.7 - Diarrhea, unspecified Status: Acute Assessment and Plan: Positive for C diff Continue per tube vancomycin FMS (10) Electrolyte abnormality: Code(s): E87.8 - Other disorders of electrolyte and fluid balance, not elsewhere classified Status: Acute Assessment and Plan: Replacement of low phosphate ordered (11) Anemia: Qualifiers: Anemia type: unspecified type Qualified Code(s): D64.9 - Anemia, unspecified Code(s): D64.9 - Anemia, unspecified Status: Acute Assessment and Plan: Patient has Chronic anemia but patient presented with normal hemoglobin level likely secondary to hemoconcentration which decreased suspected after patient received IV fluids Hemoglobin had stabilized in closed of 9 but further drops 0.4 today She had a positive Hemoccult at the time of presentation but her stools are mostly brown I will hold aspirin Continue monitor hemoglobin and transfuse if needed Continue Protonix IV q.12 hours GI consulted Plan DVT prophylaxis -Lovenox Stress ulcer prophylaxis -PPI Nutrition -continue Tube Feeds Code Status - Full Code Total Critical Care Time -30 minutes Due to a high probability of clinically significant, life threatening deterioration, the patient required my highest level of preparedness to intervene emergently and I personally spent this critical care time directly and personally managing the patient. This critical care time included obtaining a history; examining the patient; pulse oximetry; ordering and review of studies; arranging urgent treatment with development of a management plan; evaluation of patient's response to treatment; frequent reassessment; and discussions with other providers. It was exclusive of separately billable procedures and treating other patients and teaching time. Please see Assessment and Plan section and the rest of the note for further information on patient assessment and treatment Subjective Date/time seen: 12/24/24 Afebrile. 150 mL output from FMS Off vasopressors and other IV infusion Unchanged neurological status. Good urine output. She had 1 episode of vomiting yesterday and tube feeds were decreased to 20 mL/hour. No further vomiting overnight. Review of Systems Review of Systems: ROS unobtainable: Yes unobtainable due to medical condition and unobtainable due to mental status Exam Narrative: General: Pt is malnourished cachectic old frail female who is not in any distress and is not communicated Lungs/Chest: Trachea central Clear BS B/L, No crackles or wheezing. Cardiac: RRR. Normal S1 S2. No murmurs Circulation: Pedal pulses are intact and symmetrical. Abdomen: Normal bowel sounds.. Soft. NT. ND. There is a fistula/wound on the abdominal wall and right upper quadrant with minimal amount of clear drainage under the dressing. There is a PEG tube in place Extremities: No clubbing, cyanosis or edema. Warm : Marquis in place Neurologic: Pupils are unequal but both reactive to light left is bigger than right, dysconjugate gaze, she moves all 4 extremities but left more than right, does not follow command, does not answer any course, does not exhibit purposeful movement, she has contractures of right upper and right lower extremities, right lower extremities contracture did flexion position at the hip Skin: No Rash Objective Data Vital Signs Vital Signs: Vital Signs - 24 hr 12/23/24 08:54 12/23/24 09:07 12/23/24 10:00 Temperature Pulse Rate 82 79 94 Respiratory Rate 26 H Blood Pressure 126/58 L 116/63 123/52 L Pulse Oximetry 100 Oxygen Delivery Oxygen Flow Rate 12/23/24 10:00 12/23/24 10:00 12/23/24 12:00 Temperature Pulse Rate 95 95 Respiratory Rate Blood Pressure 123/52 L Pulse Oximetry 100 Oxygen Delivery Oxygen Flow Rate 12/23/24 12:00 12/23/24 12:00 12/23/24 12:00 Temperature 37.8 C H Pulse Rate 79 71 69 Respiratory Rate 21 H Blood Pressure 117/51 L 117/51 L Pulse Oximetry 97 Oxygen Delivery Oxygen Flow Rate 12/23/24 14:00 12/23/24 14:00 12/23/24 14:00 Temperature 37.6 C Pulse Rate 77 77 77 Respiratory Rate 23 H Blood Pressure 138/72 138/72 Pulse Oximetry 100 Oxygen Delivery Oxygen Flow Rate 12/23/24 16:00 12/23/24 16:00 12/23/24 16:00 Temperature Pulse Rate 96 95 Respiratory Rate Blood Pressure 138/71 Pulse Oximetry 100 Oxygen Delivery Oxygen Flow Rate 12/23/24 16:00 12/23/24 18:00 12/23/24 18:00 Temperature 37.3 C 37.4 C Pulse Rate 91 76 76 Respiratory Rate 27 H 23 H Blood Pressure 138/71 123/52 L Pulse Oximetry 100 98 Oxygen Delivery Oxygen Flow Rate 12/23/24 18:00 12/23/24 19:01 12/23/24 19:16 Temperature 37.3 C 37.2 C Pulse Rate 74 57 L 58 L Respiratory Rate 24 H 21 H Blood Pressure 123/52 L 108/55 L 130/56 L Pulse Oximetry 99 100 Oxygen Delivery Oxygen Flow Rate 12/23/24 19:31 12/23/24 19:46 12/23/24 20:00 Temperature 37.1 C 37.0 C Pulse Rate 56 L 59 L Respiratory Rate 23 H 20 Blood Pressure 89/50 L 132/50 L Pulse Oximetry 100 99 100 Oxygen Delivery Room Air Oxygen Flow Rate 12/23/24 20:00 12/23/24 20:00 12/23/24 20:02 Temperature 36.8 C 36.8 C Pulse Rate 73 70 77 Respiratory Rate 23 H 27 H Blood Pressure 139/77 139/77 Pulse Oximetry 100 99 Oxygen Delivery Oxygen Flow Rate 12/23/24 20:12 12/23/24 20:16 12/23/24 20:17 Temperature 36.8 C 36.8 C Pulse Rate 73 67 73 Respiratory Rate 26 H 22 H Blood Pressure 139/77 149/75 H Pulse Oximetry 100 100 Oxygen Delivery Oxygen Flow Rate 12/23/24 20:31 12/23/24 20:46 12/23/24 21:01 Temperature 36.8 C 36.8 C 36.7 C Pulse Rate 76 57 L 54 L Respiratory Rate 23 H 19 19 Blood Pressure 144/68 H 133/64 126/70 Pulse Oximetry 100 100 100 Oxygen Delivery Oxygen Flow Rate 12/23/24 21:16 12/23/24 21:31 12/23/24 21:45 Temperature 36.6 C 36.5 C 36.3 C L Pulse Rate 48 L 47 L 55 L Respiratory Rate 22 H 12 19 Blood Pressure 113/61 126/69 127/66 Pulse Oximetry 99 98 98 Oxygen Delivery Oxygen Flow Rate 12/23/24 22:00 12/23/24 22:00 12/23/24 22:17 Temperature 36.1 C L Pulse Rate 52 L 52 L 60 Respiratory Rate 14 Blood Pressure 118/59 L 113/59 L Pulse Oximetry 99 Oxygen Delivery Oxygen Flow Rate 12/24/24 00:00 12/24/24 00:00 12/24/24 00:00 Temperature Pulse Rate 107 H 87 Respiratory Rate Blood Pressure 121/72 Pulse Oximetry 96 Oxygen Delivery Room Air Oxygen Flow Rate 12/24/24 00:00 12/24/24 01:29 12/24/24 02:23 Temperature 35.9 C L 36.6 C Pulse Rate 107 H 65 69 Respiratory Rate 26 H 19 Blood Pressure 121/72 106/60 Pulse Oximetry 96 95 Oxygen Delivery Oxygen Flow Rate 12/24/24 02:24 12/24/24 02:24 12/24/24 03:42 Temperature 36.2 C L Pulse Rate 63 63 Respiratory Rate 20 Blood Pressure 106/60 Pulse Oximetry 98 92 Oxygen Delivery Nasal Cannula Oxygen Flow Rate 4 12/24/24 03:59 12/24/24 04:00 12/24/24 04:00 Temperature 36.0 C L 36.0 C L Pulse Rate 68 58 L Respiratory Rate 19 19 Blood Pressure 87/48 L Pulse Oximetry 96 96 96 Oxygen Delivery Nasal Cannula Oxygen Flow Rate 4 12/24/24 04:00 12/24/24 04:01 12/24/24 04:30 Temperature Pulse Rate 59 L 58 L Respiratory Rate Blood Pressure 87/48 L Pulse Oximetry 100 Oxygen Delivery Nasal Cannula Oxygen Flow Rate 3 12/24/24 04:59 12/24/24 05:59 12/24/24 06:00 Temperature 36.1 C L 36.3 C L Pulse Rate 62 77 75 Respiratory Rate 18 18 Blood Pressure 104/84 Pulse Oximetry 100 98 Oxygen Delivery Oxygen Flow Rate 12/24/24 06:00 12/24/24 06:00 12/24/24 06:00 Temperature 36.3 C L Pulse Rate 75 75 Respiratory Rate 20 Blood Pressure 104/84 Pulse Oximetry 98 98 Oxygen Delivery Room Air Oxygen Flow Rate 12/24/24 06:19 12/24/24 06:27 12/24/24 06:59 Temperature 36.4 C L 36.4 C L Pulse Rate 77 74 Respiratory Rate 23 H 19 Blood Pressure Pulse Oximetry 100 99 99 Oxygen Delivery Oxygen Flow Rate 2 12/24/24 08:00 Temperature Pulse Rate 64 Respiratory Rate Blood Pressure 105/61 Pulse Oximetry Oxygen Delivery Oxygen Flow Rate Intake/Output Intake/Output: Intake & Output 05/22/25 05/23/25 05/24/25 05/25/25 23:59 23:59 23:59 23:59 Intake Total 1744.7 4084.3 3165.2 1078 Output Total 1400 1600 3100 525 Balance 344.7 2484.3 65.2 553 Meds/Results Medications: Active Medications Generic Name Dose Route Start Last Admin Trade Name Freq PRN Reason Stop Dose Admin Acetaminophen 650 mg 12/21/24 09:45 12/22/24 20:01 Acetaminophen Elixir 325 Mg/10.15 Ml Udc FEED TUBE 650 mg Q4H PRN Administration Pain (Scale Score 1-3)/fever Albuterol 2 puff 12/21/24 09:46 Albuterol Sulfate (*Sp) Aerosol 1 Puff INHALATION PRN PRN Wheezing Ascorbic Acid 500 mg 12/21/24 09:50 12/23/24 08:57 Ascorbic Acid 500 Mg Tablet FEED TUBE 500 mg DAILY SANDRA Administration Aspirin 81 mg 12/21/24 09:50 12/22/24 08:48 Aspirin 81 Mg Chewable Tablet FEED TUBE 81 mg DAILY SANDRA Administration Atorvastatin Calcium 80 mg 12/21/24 21:00 12/23/24 20:04 Atorvastatin 40 Mg Tablet FEED TUBE 80 mg HS SANDRA Administration Bisacodyl 10 mg 12/21/24 09:40 Bisacodyl 10 Mg Suppository RECTAL DAILY PRN constipation Dextrose 12.5 gm 12/21/24 23:44 Dextrose 50% 25 Gm/50 Ml Syringe IV PUSH PRN PRN Hypoglycemia Protocol Ezetimibe 10 mg 12/21/24 21:00 12/23/24 20:04 Ezetimibe 10 Mg Tablet FEED TUBE 10 mg HS SANDRA Administration Glucagon 1 mg 12/21/24 23:44 Glucagon For Inj 1 Mg Vial IM PRN PRN Hypoglycemia Protocol Glucose 15 gm 12/21/24 23:44 Glucose Oral Gel 15 Gm Of Glucse In 37.5 Gm Tube PO PRN PRN Hypoglycemia Protocol Hydrocortisone Sodium Succinate 100 mg 12/24/24 09:00 Hydrocortisone Sodium Succinate 100 Mg/2 Ml Vial IV PUSH 12/25/24 23:59 QAM SANDRA Piperacillin/Tazobactam/Dextrose 3.375 gm in 50 mls @ 100 mls/hr 12/21/24 10:00 12/24/24 05:29 Zosyn 3.375 Gm/Ns 50 Ml IVPB Infused Q6H SANDRA Infusion Dextrose 1,000 mls @ 100 mls/hr 12/21/24 23:44 Dextrose 5% 1,000 Ml IVPB PRN PRN Hypoglycemia Protocol Vancomycin HCl 1,000 mg in 250 mls @ 250 mls/hr 12/23/24 23:00 12/24/24 08:02 Vancomycin 1,000 Mg/Ns 250 Ml IVPB Infused Q8H SANDRA Infusion Potassium Phosphate 20 mmol/ 256.6667 mls @ 64.167 mls/hr 12/24/24 07:40 Sodium Chloride IVPB 12/24/24 11:39 ONCE ONE Insulin Aspart 3 - 6 units 12/22/24 20:00 12/24/24 03:22 Insulin Aspart (*Bkc) 100 Units/Ml SUB-Q Not Given Q4H [facility] Protocol Magnesium Citrate 300 ml 12/21/24 09:40 Magnesium Citrate 300 Ml Btl FEED TUBE DAILY PRN Constipation Midodrine 10 mg 12/23/24 09:00 12/23/24 16:11 Midodrine Hcl 10 Mg Tablet FEED TUBE 10 mg TID SANDRA Administration Ondansetron HCl 4 mg 12/23/24 16:46 12/24/24 00:12 Ondansetron Inj 4 Mg/2 Ml Vial IV PUSH 4 mg Q4H PRN Administration Nausea And Vomiting Pantoprazole Sodium 40 mg 12/21/24 21:00 12/23/24 20:04 Pantoprazole Sodium Iv 40 Mg Vial IV PUSH 40 mg Q12HR SANDRA Administration Silver Sulfadiazine 1 applic 12/21/24 09:50 12/23/24 08:55 Silver Sulfadiazine 1% Cr 400 Gm Jar (*Bkc) TOPICAL 1 applic DAILY SANDRA Administration Sodium Chloride 10 ml 12/20/24 22:00 12/24/24 05:46 Central Line Flush IV PUSH 10 ml Q8HR SANDRA Administration Sodium Chloride 20 ml 12/20/24 17:15 12/23/24 06:02 Central Line Flush IV PUSH 20 ml PRN PRN Administration after blood draws Vancomycin HCl 125 mg 12/21/24 12:00 12/24/24 05:46 Vancomycin Oral 125 Mg/2.5 Ml Syrup FEED TUBE 125 mg Q6HR SANDRA Administration Vitamin D 1,000 units 12/21/24 09:50 12/23/24 08:57 Cholecalciferol 1,000 Units Tablet FEED TUBE 1,000 units DAILY SANDRA Administration Radiology Results: ITS Impressions Head CT 12/20/24 16:30 IMPRESSION: No acute intracranial findings. Chest/Abdomen/Pelvis CT 12/20/24 16:42 IMPRESSION: CHEST: 1. Highly suggestive of pneumonia in the right lower lobe. 2. No evidence of pulmonary embolism or dissection. ABDOMEN/PELVIS: 1. No evidence of appendicitis, diverticulitis or intestinal obstruction. 2. Fluid in the large bowel which may indicate diarrhea versus enteritis. Clinical correlation advised. 3. Multiple fibroids. 4. Compression fracture of L4 which may be acute or chronic. MRI is advised. 5. Severe atherosclerotic changes of the iliac arteries. Severe stenosis of both iliac arteries. Chest X-Ray 12/24/24 06:36 IMPRESSION: Small left-sided pleural effusion with mild pulmonary vascular congestion. No focal infiltrate. Labs Labs: Laboratory Results - last 24 hr 12/23/24 12/23/24 12/23/24 11:20 13:45 16:21 WBC RBC Hgb Hct MCV MCH MCHC RDW Plt Count MPV % Immature Plt Fraction Sodium Potassium Chloride Carbon Dioxide Anion Gap BUN Creatinine Estim Creat Clear Calc Estimated GFR Glucose POC Capillary Glucose 154 H 285 H Calcium Phosphorus Magnesium Iron < 10 L TIBC 121 L % Saturation < 8 L Total Bilirubin AST ALT Alkaline Phosphatase Total Protein Albumin Vancomycin Trough 12/23/24 12/23/24 12/23/24 19:13 19:44 21:31 WBC 5.9 RBC 3.03 L Hgb 7.7 L Hct 25.3 L MCV 83.5 MCH 25.4 L MCHC 30.4 L RDW 15.2 H Plt Count 94 L MPV 13.4 H % Immature Plt Fraction 12.6 H Sodium 146 H Potassium 3.6 Chloride 115 H Carbon Dioxide 22 Anion Gap 9 BUN 15 Creatinine 0.34 L Estim Creat Clear Calc 89 Estimated GFR > 60 Glucose 235 H POC Capillary Glucose 231 H Calcium 8.3 L Phosphorus Magnesium Iron TIBC % Saturation Total Bilirubin AST ALT Alkaline Phosphatase Total Protein Albumin Vancomycin Trough 8.5 L 12/24/24 12/24/24 12/24/24 00:16 03:19 05:49 WBC 4.2 L RBC 2.80 L Hgb 7.1 L Hct 23.5 L MCV 83.9 MCH 25.4 L MCHC 30.2 L RDW 15.0 H Plt Count 89 L MPV 12.5 H % Immature Plt Fraction 11.6 H Sodium 146 H Potassium 3.2 L Chloride 113 H Carbon Dioxide 23 Anion Gap 10 BUN 15 Creatinine 0.33 L Estim Creat Clear Calc 91 Estimated GFR > 60 Glucose 219 H POC Capillary Glucose 222 H 184 H Calcium 8.3 L Phosphorus 2.2 L Magnesium 2.0 Iron TIBC % Saturation Total Bilirubin 0.4 AST 17 ALT 16 Alkaline Phosphatase 38 Total Protein 6.0 L Albumin 3.9 Vancomycin Trough 12/24/24 07:46 WBC RBC Hgb Hct MCV MCH MCHC RDW Plt Count MPV % Immature Plt Fraction Sodium Potassium Chloride Carbon Dioxide Anion Gap BUN Creatinine Estim Creat Clear Calc Estimated GFR Glucose POC Capillary Glucose 228 H Calcium Phosphorus Magnesium Iron TIBC % Saturation Total Bilirubin AST ALT Alkaline Phosphatase Total Protein Albumin Vancomycin Trough Quality VTE Prophylaxis VTE prophylaxis: mechanical ordered and pharmacologic ordered
[2024-12-24] MEDS: PANTOPRAZOLE SODIUM IV 40 MG VIAL IV PUSH ×2 (08:43→20:33)
[2024-12-24] MEDS: CHOLECALCIFEROL 1,000 UNITS TABLET 1000 UNITS FEED TUBE (08:44)
[2024-12-24] MEDS: MIDODRINE HCL 10 MG TABLET FEED TUBE ×3 (08:44→17:01)
[2024-12-24] MEDS: POTASSIUM PHOS,M-BASIC-D-BASIC 20 MMOL in SODIUM CHLORIDE 0.9% IV 250 ML 64.17 MMOL IVPB (08:44)
[2024-12-24] MEDS: POTASSIUM CHLORIDE 20 MEQ PACKET (FOR LIQUID) 40 MEQ FEED TUBE (08:44)
[2024-12-24] MEDS: ASCORBIC ACID 500 MG TABLET FEED TUBE (08:44)
[2024-12-24] MEDS: SILVER SULFADIAZINE 1% CR 400 GM JAR (*BKC) 1 APPLIC TOPICAL (08:45)
[2024-12-24 12:01] LABS: Glucose Point of Care 257 mg/dl (65-105)
--- NOTE | 2024-12-24 12:58 | WPDGIPROGNO ---
Progress Note: A&P Assessment and Plan (1) Anemia: Qualifiers: Anemia type: unspecified type Qualified Code(s): D64.9 - Anemia, unspecified Code(s): D64.9 - Anemia, unspecified Status: Acute Assessment and Plan: The patient presents with acute on chronic anemia, with an element of iron deficiency per yesterday's resuilts (<8%) which, as discussed yesterday, is multifactorial. She is currently managing multiple medical conditions, including ongoing sepsis treatment. Although she's more hemodynamically stable, this is not the appropriate time for diagnostic procedures for iron deficiency anemia, such as colonoscopy and endoscopy. Furthermore, no relatives are currently available to discuss the implications of general anesthesia and colonoscopy. We will consider preparing her for these procedures once a legal guardian is present and able to provide consent. Subjective Date/time seen: 12/24/24 12:58 Interval history: The patient continues in the ICU although she has been downgraded to IMU, since all pressors have been discontinued. Objective Data Vital Signs Vital Signs: Vital Signs - 24 hr 12/23/24 14:00 12/23/24 14:00 12/23/24 14:00 Temperature 99.6 F Pulse Rate 77 77 77 Respiratory Rate 23 H Blood Pressure 138/72 138/72 Pulse Oximetry 100 Oxygen Delivery Oxygen Flow Rate 12/23/24 16:00 12/23/24 16:00 12/23/24 16:00 Temperature Pulse Rate 96 95 Respiratory Rate Blood Pressure 138/71 Pulse Oximetry 100 Oxygen Delivery Oxygen Flow Rate 12/23/24 16:00 12/23/24 18:00 12/23/24 18:00 Temperature 99.1 F 99.3 F Pulse Rate 91 76 76 Respiratory Rate 27 H 23 H Blood Pressure 138/71 123/52 L Pulse Oximetry 100 98 Oxygen Delivery Oxygen Flow Rate 12/23/24 18:00 12/23/24 19:01 12/23/24 19:16 Temperature 99.1 F 98.9 F Pulse Rate 74 57 L 58 L Respiratory Rate 24 H 21 H Blood Pressure 123/52 L 108/55 L 130/56 L Pulse Oximetry 99 100 Oxygen Delivery Oxygen Flow Rate 12/23/24 19:31 12/23/24 19:46 12/23/24 20:00 Temperature 98.8 F 98.6 F Pulse Rate 56 L 59 L Respiratory Rate 23 H 20 Blood Pressure 89/50 L 132/50 L Pulse Oximetry 100 99 100 Oxygen Delivery Room Air Oxygen Flow Rate 12/23/24 20:00 12/23/24 20:00 12/23/24 20:02 Temperature 98.3 F 98.3 F Pulse Rate 73 70 77 Respiratory Rate 23 H 27 H Blood Pressure 139/77 139/77 Pulse Oximetry 100 99 Oxygen Delivery Oxygen Flow Rate 12/23/24 20:12 12/23/24 20:16 12/23/24 20:17 Temperature 98.3 F 98.3 F Pulse Rate 73 67 73 Respiratory Rate 26 H 22 H Blood Pressure 139/77 149/75 H Pulse Oximetry 100 100 Oxygen Delivery Oxygen Flow Rate 12/23/24 20:31 12/23/24 20:46 12/23/24 21:01 Temperature 98.2 F 98.3 F 98.1 F Pulse Rate 76 57 L 54 L Respiratory Rate 23 H 19 19 Blood Pressure 144/68 H 133/64 126/70 Pulse Oximetry 100 100 100 Oxygen Delivery Oxygen Flow Rate 12/23/24 21:16 12/23/24 21:31 12/23/24 21:45 Temperature 97.9 F 97.7 F 97.3 F L Pulse Rate 48 L 47 L 55 L Respiratory Rate 22 H 12 19 Blood Pressure 113/61 126/69 127/66 Pulse Oximetry 99 98 98 Oxygen Delivery Oxygen Flow Rate 12/23/24 22:00 12/23/24 22:00 12/23/24 22:17 Temperature 97.0 F L Pulse Rate 52 L 52 L 60 Respiratory Rate 14 Blood Pressure 118/59 L 113/59 L Pulse Oximetry 99 Oxygen Delivery Oxygen Flow Rate 12/24/24 00:00 12/24/24 00:00 12/24/24 00:00 Temperature Pulse Rate 107 H 87 Respiratory Rate Blood Pressure 121/72 Pulse Oximetry 96 Oxygen Delivery Room Air Oxygen Flow Rate 12/24/24 00:00 12/24/24 01:29 12/24/24 02:23 Temperature 96.7 F L 97.8 F Pulse Rate 107 H 65 69 Respiratory Rate 26 H 19 Blood Pressure 121/72 106/60 Pulse Oximetry 96 95 Oxygen Delivery Oxygen Flow Rate 12/24/24 02:24 12/24/24 02:24 12/24/24 03:42 Temperature 97.2 F L Pulse Rate 63 63 Respiratory Rate 20 Blood Pressure 106/60 Pulse Oximetry 98 92 Oxygen Delivery Nasal Cannula Oxygen Flow Rate 4 12/24/24 03:59 12/24/24 04:00 12/24/24 04:00 Temperature 96.8 F L 96.8 F L Pulse Rate 68 58 L Respiratory Rate 19 19 Blood Pressure 87/48 L Pulse Oximetry 96 96 96 Oxygen Delivery Nasal Cannula Oxygen Flow Rate 4 12/24/24 04:00 12/24/24 04:01 12/24/24 04:30 Temperature Pulse Rate 59 L 58 L Respiratory Rate Blood Pressure 87/48 L Pulse Oximetry 100 Oxygen Delivery Nasal Cannula Oxygen Flow Rate 3 12/24/24 04:59 12/24/24 05:59 12/24/24 06:00 Temperature 97.0 F L 97.3 F L Pulse Rate 62 77 75 Respiratory Rate 18 18 Blood Pressure 104/84 Pulse Oximetry 100 98 Oxygen Delivery Oxygen Flow Rate 12/24/24 06:00 12/24/24 06:00 12/24/24 06:00 Temperature 97.3 F L Pulse Rate 75 75 Respiratory Rate 20 Blood Pressure 104/84 Pulse Oximetry 98 98 Oxygen Delivery Room Air Oxygen Flow Rate 12/24/24 06:19 12/24/24 06:27 12/24/24 06:59 Temperature 97.5 F L 97.5 F L Pulse Rate 77 74 Respiratory Rate 23 H 19 Blood Pressure Pulse Oximetry 100 99 99 Oxygen Delivery Oxygen Flow Rate 2 12/24/24 08:00 12/24/24 08:00 12/24/24 08:00 Temperature Pulse Rate 64 64 Respiratory Rate Blood Pressure 105/61 Pulse Oximetry 94 Oxygen Delivery Room Air Oxygen Flow Rate 12/24/24 08:00 12/24/24 10:00 12/24/24 10:00 Temperature 97.7 F 97.8 F Pulse Rate 65 88 88 Respiratory Rate 22 H 25 H Blood Pressure 105/61 105/56 L Pulse Oximetry 94 100 Oxygen Delivery Oxygen Flow Rate 12/24/24 12:00 Temperature Pulse Rate Respiratory Rate Blood Pressure Pulse Oximetry 97 Oxygen Delivery Room Air Oxygen Flow Rate Intake/Output Intake/Output: Intake & Output 12/21/24 12/22/24 12/23/24 12/24/24 23:59 23:59 23:59 23:59 Intake Total 1744.7 4084.3 3165.2 1128 Output Total 1400 1600 3100 525 Balance 344.7 2484.3 65.2 603 Meds/Results Medications: Active Medications Generic Name Dose Route Start Last Admin Trade Name Freq PRN Reason Stop Dose Admin Acetaminophen 650 mg 12/21/24 09:45 12/22/24 20:01 Acetaminophen Elixir 325 Mg/10.15 Ml Udc FEED TUBE 650 mg Q4H PRN Administration Pain (Scale Score 1-3)/fever Albuterol 2 puff 12/21/24 09:46 Albuterol Sulfate (*Sp) Aerosol 1 Puff INHALATION PRN PRN Wheezing Ascorbic Acid 500 mg 12/21/24 09:50 12/24/24 08:44 Ascorbic Acid 500 Mg Tablet FEED TUBE 500 mg DAILY SANDRA Administration Aspirin 81 mg 12/21/24 09:50 12/22/24 08:48 Aspirin 81 Mg Chewable Tablet FEED TUBE 81 mg DAILY SANDRA Administration Atorvastatin Calcium 80 mg 12/21/24 21:00 12/23/24 20:04 Atorvastatin 40 Mg Tablet FEED TUBE 80 mg HS SANDRA Administration Bisacodyl 10 mg 12/21/24 09:40 Bisacodyl 10 Mg Suppository RECTAL DAILY PRN constipation Dextrose 12.5 gm 12/21/24 23:44 Dextrose 50% 25 Gm/50 Ml Syringe IV PUSH PRN PRN Hypoglycemia Protocol Ezetimibe 10 mg 12/21/24 21:00 12/23/24 20:04 Ezetimibe 10 Mg Tablet FEED TUBE 10 mg HS SANDRA Administration Glucagon 1 mg 12/21/24 23:44 Glucagon For Inj 1 Mg Vial IM PRN PRN Hypoglycemia Protocol Glucose 15 gm 12/21/24 23:44 Glucose Oral Gel 15 Gm Of Glucse In 37.5 Gm Tube PO PRN PRN Hypoglycemia Protocol Hydrocortisone Sodium Succinate 100 mg 12/24/24 09:00 12/24/24 08:43 Hydrocortisone Sodium Succinate 100 Mg/2 Ml Vial IV PUSH 12/25/24 23:59 100 mg QAM SANDRA Administration Piperacillin/Tazobactam/Dextrose 3.375 gm in 50 mls @ 100 mls/hr 12/21/24 10:00 12/24/24 10:32 Zosyn 3.375 Gm/Ns 50 Ml IVPB Infused Q6H SANDRA Infusion Dextrose 1,000 mls @ 100 mls/hr 12/21/24 23:44 Dextrose 5% 1,000 Ml IVPB PRN PRN Hypoglycemia Protocol Vancomycin HCl 1,000 mg in 250 mls @ 250 mls/hr 12/23/24 23:00 12/24/24 08:02 Vancomycin 1,000 Mg/Ns 250 Ml IVPB Infused Q8H SANDRA Infusion Insulin Aspart 3 - 6 units 12/22/24 20:00 12/24/24 11:54 Insulin Aspart (*Bkc) 100 Units/Ml SUB-Q 4 units Q4H SANDRA Administration Protocol Magnesium Citrate 300 ml 12/21/24 09:40 Magnesium Citrate 300 Ml Btl FEED TUBE DAILY PRN Constipation Midodrine 10 mg 12/23/24 09:00 12/24/24 08:44 Midodrine Hcl 10 Mg Tablet FEED TUBE 10 mg TID SANDRA Administration Ondansetron HCl 4 mg 12/23/24 16:46 12/24/24 00:12 Ondansetron Inj 4 Mg/2 Ml Vial IV PUSH 4 mg Q4H PRN Administration Nausea And Vomiting Pantoprazole Sodium 40 mg 12/21/24 21:00 12/24/24 08:43 Pantoprazole Sodium Iv 40 Mg Vial IV PUSH 40 mg Q12HR SANDRA Administration Silver Sulfadiazine 1 applic 12/21/24 09:50 12/24/24 08:45 Silver Sulfadiazine 1% Cr 400 Gm Jar (*Bkc) TOPICAL 1 applic DAILY SANDRA Administration Sodium Chloride 10 ml 12/20/24 22:00 12/24/24 05:46 Central Line Flush IV PUSH 10 ml Q8HR SANDRA Administration Sodium Chloride 20 ml 12/20/24 17:15 12/23/24 06:02 Central Line Flush IV PUSH 20 ml PRN PRN Administration after blood draws Vancomycin HCl 125 mg 12/21/24 12:00 12/24/24 11:48 Vancomycin Oral 125 Mg/2.5 Ml Syrup FEED TUBE 125 mg Q6HR SANDRA Administration Vitamin D 1,000 units 12/21/24 09:50 12/24/24 08:44 Cholecalciferol 1,000 Units Tablet FEED TUBE 1,000 units DAILY SANDRA Administration Radiology Results: ITS Impressions Head CT 12/20/24 16:30 IMPRESSION: No acute intracranial findings. Chest/Abdomen/Pelvis CT 12/20/24 16:42 IMPRESSION: CHEST: 1. Highly suggestive of pneumonia in the right lower lobe. 2. No evidence of pulmonary embolism or dissection. ABDOMEN/PELVIS: 1. No evidence of appendicitis, diverticulitis or intestinal obstruction. 2. Fluid in the large bowel which may indicate diarrhea versus enteritis. Clinical correlation advised. 3. Multiple fibroids. 4. Compression fracture of L4 which may be acute or chronic. MRI is advised. 5. Severe atherosclerotic changes of the iliac arteries. Severe stenosis of both iliac arteries. Chest X-Ray 12/24/24 06:36 IMPRESSION: Small left-sided pleural effusion with mild pulmonary vascular congestion. No focal infiltrate. Labs Labs: Laboratory Results - last 24 hr 12/23/24 12/23/24 12/23/24 13:45 16:21 19:13 WBC 5.9 RBC 3.03 L Hgb 7.7 L Hct 25.3 L MCV 83.5 MCH 25.4 L MCHC 30.4 L RDW 15.2 H Plt Count 94 L MPV 13.4 H % Immature Plt Fraction 12.6 H Sodium 146 H Potassium 3.6 Chloride 115 H Carbon Dioxide 22 Anion Gap 9 BUN 15 Creatinine 0.34 L Estim Creat Clear Calc 89 Estimated GFR > 60 Glucose 235 H POC Capillary Glucose 285 H Calcium 8.3 L Phosphorus Magnesium Iron < 10 L TIBC 121 L % Saturation < 8 L Total Bilirubin AST ALT Alkaline Phosphatase Total Protein Albumin Vancomycin Trough 12/23/24 12/23/24 12/24/24 19:44 21:31 00:16 WBC RBC Hgb Hct MCV MCH MCHC RDW Plt Count MPV % Immature Plt Fraction Sodium Potassium Chloride Carbon Dioxide Anion Gap BUN Creatinine Estim Creat Clear Calc Estimated GFR Glucose POC Capillary Glucose 231 H 222 H Calcium Phosphorus Magnesium Iron TIBC % Saturation Total Bilirubin AST ALT Alkaline Phosphatase Total Protein Albumin Vancomycin Trough 8.5 L 12/24/24 12/24/24 12/24/24 03:19 05:49 07:46 WBC 4.2 L RBC 2.80 L Hgb 7.1 L Hct 23.5 L MCV 83.9 MCH 25.4 L MCHC 30.2 L RDW 15.0 H Plt Count 89 L MPV 12.5 H % Immature Plt Fraction 11.6 H Sodium 146 H Potassium 3.2 L Chloride 113 H Carbon Dioxide 23 Anion Gap 10 BUN 15 Creatinine 0.33 L Estim Creat Clear Calc 91 Estimated GFR > 60 Glucose 219 H POC Capillary Glucose 184 H 228 H Calcium 8.3 L Phosphorus 2.2 L Magnesium 2.0 Iron TIBC % Saturation Total Bilirubin 0.4 AST 17 ALT 16 Alkaline Phosphatase 38 Total Protein 6.0 L Albumin 3.9 Vancomycin Trough 12/24/24 11:49 WBC RBC Hgb Hct MCV MCH MCHC RDW Plt Count MPV % Immature Plt Fraction Sodium Potassium Chloride Carbon Dioxide Anion Gap BUN Creatinine Estim Creat Clear Calc Estimated GFR Glucose POC Capillary Glucose 257 H Calcium Phosphorus Magnesium Iron TIBC % Saturation Total Bilirubin AST ALT Alkaline Phosphatase Total Protein Albumin Vancomycin Trough
[2024-12-24 14:27] LABS: Vancomycin Trough 18.7 ug/mL (10.0-20.0)
--- NOTE | 2024-12-24 15:32 | PM.IMPN ---
Progress Note: A&P Assessment and Plan (1) Septic shock: Code(s): A41.9 - Sepsis, unspecified organism; R65.21 - Severe sepsis with septic shock Status: Acute Assessment and Plan: Sepsis secondary to pneumonia, ? Questionable UTI and also dehydration from C diff ascended diarrhea Her pneumonia could be also be aspiration since she is on tube feeds She is off IV fluids now and also off of vasopressors She received 25% albumin and continue midodrine Wean off hydrocortisone Blood cultures and urine cultures have been sent and are pending She is currently on vancomycin and Zosyn Stool positive for C diff and she is on per tube vancomycin (2) Gastrostomy status: Code(s): Z93.1 - Gastrostomy status Status: Acute Assessment and Plan: Continue tube feeding (3) Right upper quadrant abdominal abscess: Code(s): K65.1 - Peritoneal abscess Status: Acute Assessment and Plan: Patient had a cholecystostomy tube placed for cholecystitis in 2020. 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 This is a chronic issue Continue antibiotics, local wound care and open draining Patient was evaluated by General surgery 2 months ago and due to her being a poor candidate for any surgical intervention they recommended conservative management with local wound care and antibiotic. Site does not look infected as there is no redness or erythema around it (4) Acute hypernatremia: Code(s): E87.0 - Hyperosmolality and hypernatremia Status: Acute Assessment and Plan: Hypernatremia secondary to dehydration She presented with sodium of 168. Nephrology was consulted and has been managing fluids and correction of hyponatremia Sodium has improved and patient is now off of IV fluids. Continue free water flush to 200 (5) CVA (cerebral vascular accident): Code(s): I63.9 - Cerebral infarction, unspecified Status: Acute Assessment and Plan: History of CVA. Continue statin. Hold aspirin due to drop in hemoglobin (6) Pneumonia: Code(s): J18.9 - Pneumonia, unspecified organism Status: Acute Assessment and Plan: See above (7) Reflux esophagitis: Qualifiers: Esophagitis bleeding: without hemorrhage Qualified Code(s): K21.00 - Gastro-esophageal reflux disease with esophagitis, without bleeding Code(s): K21.00 - Gastro-esophageal reflux disease with esophagitis, without bleeding Status: Chronic Assessment and Plan: PPI (8) Dehydration: Code(s): E86.0 - Dehydration Status: Acute Assessment and Plan: See above (9) Diarrhea: Code(s): R19.7 - Diarrhea, unspecified Status: Acute Assessment and Plan: Positive for C diff Continue per tube vancomycin FMS (10) Electrolyte abnormality: Code(s): E87.8 - Other disorders of electrolyte and fluid balance, not elsewhere classified Status: Acute Assessment and Plan: Replacement of low phosphate ordered (11) Anemia: Qualifiers: Anemia type: unspecified type Qualified Code(s): D64.9 - Anemia, unspecified Code(s): D64.9 - Anemia, unspecified Status: Acute Assessment and Plan: Patient has Chronic anemia but patient presented with normal hemoglobin level likely secondary to hemoconcentration which decreased suspected after patient received IV fluids Hemoglobin had stabilized in closed of 9 but further drops 0.4 today She had a positive Hemoccult at the time of presentation but her stools are mostly brown I will hold aspirin Continue monitor hemoglobin and transfuse if needed Continue Protonix IV q.12 hours GI consulted Subjective Date/time seen: 12/24/24 15:32 Interval history: Off vasopressors more than 24 hours. Pt currently on IMU status Review of Systems Review of Systems: ROS unobtainable: Yes unobtainable due to medical condition and unobtainable due to mental status Exam Narrative: General: Pt is malnourished cachectic old frail female who is not in any distress and is not communicated Lungs/Chest: Trachea central Clear BS B/L, No crackles or wheezing. Cardiac: RRR. Normal S1 S2. No murmurs Circulation: Pedal pulses are intact and symmetrical. Abdomen: Normal bowel sounds.. Soft. NT. ND. There is a fistula/wound on the abdominal wall and right upper quadrant with minimal amount of clear drainage under the dressing. There is a PEG tube in place Extremities: No clubbing, cyanosis or edema. Warm : Marquis in place Neurologic: Pupils are unequal but both reactive to light left is bigger than right, dysconjugate gaze, she moves all 4 extremities but left more than right, does not follow command, does not answer any course, does not exhibit purposeful movement, she has contractures of right upper and right lower extremities, right lower extremities contracture did flexion position at the hip Skin: No Rash Objective Data Vital Signs Vital Signs: Vital Signs - 24 hr 12/23/24 16:00 12/23/24 16:00 12/23/24 16:00 Temperature Pulse Rate 96 95 Respiratory Rate Blood Pressure 138/71 Pulse Oximetry 100 Oxygen Delivery Oxygen Flow Rate 12/23/24 16:00 12/23/24 18:00 12/23/24 18:00 Temperature 99.1 F 99.3 F Pulse Rate 91 76 76 Respiratory Rate 27 H 23 H Blood Pressure 138/71 123/52 L Pulse Oximetry 100 98 Oxygen Delivery Oxygen Flow Rate 12/23/24 18:00 12/23/24 19:01 12/23/24 19:16 Temperature 99.1 F 98.9 F Pulse Rate 74 57 L 58 L Respiratory Rate 24 H 21 H Blood Pressure 123/52 L 108/55 L 130/56 L Pulse Oximetry 99 100 Oxygen Delivery Oxygen Flow Rate 12/23/24 19:31 12/23/24 19:46 12/23/24 20:00 Temperature 98.8 F 98.6 F Pulse Rate 56 L 59 L Respiratory Rate 23 H 20 Blood Pressure 89/50 L 132/50 L Pulse Oximetry 100 99 100 Oxygen Delivery Room Air Oxygen Flow Rate 12/23/24 20:00 12/23/24 20:00 12/23/24 20:02 Temperature 98.3 F 98.3 F Pulse Rate 73 70 77 Respiratory Rate 23 H 27 H Blood Pressure 139/77 139/77 Pulse Oximetry 100 99 Oxygen Delivery Oxygen Flow Rate 12/23/24 20:12 12/23/24 20:16 12/23/24 20:17 Temperature 98.3 F 98.3 F Pulse Rate 73 67 73 Respiratory Rate 26 H 22 H Blood Pressure 139/77 149/75 H Pulse Oximetry 100 100 Oxygen Delivery Oxygen Flow Rate 12/23/24 20:31 12/23/24 20:46 12/23/24 21:01 Temperature 98.2 F 98.3 F 98.1 F Pulse Rate 76 57 L 54 L Respiratory Rate 23 H 19 19 Blood Pressure 144/68 H 133/64 126/70 Pulse Oximetry 100 100 100 Oxygen Delivery Oxygen Flow Rate 12/23/24 21:16 12/23/24 21:31 12/23/24 21:45 Temperature 97.9 F 97.7 F 97.3 F L Pulse Rate 48 L 47 L 55 L Respiratory Rate 22 H 12 19 Blood Pressure 113/61 126/69 127/66 Pulse Oximetry 99 98 98 Oxygen Delivery Oxygen Flow Rate 12/23/24 22:00 12/23/24 22:00 12/23/24 22:17 Temperature 97.0 F L Pulse Rate 52 L 52 L 60 Respiratory Rate 14 Blood Pressure 118/59 L 113/59 L Pulse Oximetry 99 Oxygen Delivery Oxygen Flow Rate 12/24/24 00:00 12/24/24 00:00 12/24/24 00:00 Temperature Pulse Rate 107 H 87 Respiratory Rate Blood Pressure 121/72 Pulse Oximetry 96 Oxygen Delivery Room Air Oxygen Flow Rate 12/24/24 00:00 12/24/24 01:29 12/24/24 02:23 Temperature 96.7 F L 97.8 F Pulse Rate 107 H 65 69 Respiratory Rate 26 H 19 Blood Pressure 121/72 106/60 Pulse Oximetry 96 95 Oxygen Delivery Oxygen Flow Rate 12/24/24 02:24 12/24/24 02:24 12/24/24 03:42 Temperature 97.2 F L Pulse Rate 63 63 Respiratory Rate 20 Blood Pressure 106/60 Pulse Oximetry 98 92 Oxygen Delivery Nasal Cannula Oxygen Flow Rate 4 12/24/24 03:59 12/24/24 04:00 12/24/24 04:00 Temperature 96.8 F L 96.8 F L Pulse Rate 68 58 L Respiratory Rate 19 19 Blood Pressure 87/48 L Pulse Oximetry 96 96 96 Oxygen Delivery Nasal Cannula Oxygen Flow Rate 4 12/24/24 04:00 12/24/24 04:01 12/24/24 04:30 Temperature Pulse Rate 59 L 58 L Respiratory Rate Blood Pressure 87/48 L Pulse Oximetry 100 Oxygen Delivery Nasal Cannula Oxygen Flow Rate 3 12/24/24 04:59 12/24/24 05:59 12/24/24 06:00 Temperature 97.0 F L 97.3 F L Pulse Rate 62 77 75 Respiratory Rate 18 18 Blood Pressure 104/84 Pulse Oximetry 100 98 Oxygen Delivery Oxygen Flow Rate 12/24/24 06:00 12/24/24 06:00 12/24/24 06:00 Temperature 97.3 F L Pulse Rate 75 75 Respiratory Rate 20 Blood Pressure 104/84 Pulse Oximetry 98 98 Oxygen Delivery Room Air Oxygen Flow Rate 12/24/24 06:19 12/24/24 06:27 12/24/24 06:59 Temperature 97.5 F L 97.5 F L Pulse Rate 77 74 Respiratory Rate 23 H 19 Blood Pressure Pulse Oximetry 100 99 99 Oxygen Delivery Oxygen Flow Rate 2 12/24/24 08:00 12/24/24 08:00 12/24/24 08:00 Temperature Pulse Rate 64 64 Respiratory Rate Blood Pressure 105/61 Pulse Oximetry 94 Oxygen Delivery Room Air Oxygen Flow Rate 12/24/24 08:00 12/24/24 10:00 12/24/24 10:00 Temperature 97.7 F 97.8 F Pulse Rate 65 88 88 Respiratory Rate 22 H 25 H Blood Pressure 105/61 105/56 L Pulse Oximetry 94 100 Oxygen Delivery Oxygen Flow Rate 12/24/24 12:00 12/24/24 12:00 12/24/24 12:00 Temperature 98.4 F Pulse Rate 76 70 Respiratory Rate 26 H Blood Pressure 118/64 Pulse Oximetry 97 98 Oxygen Delivery Room Air Oxygen Flow Rate 12/24/24 14:00 Temperature Pulse Rate 50 L Respiratory Rate Blood Pressure Pulse Oximetry Oxygen Delivery Oxygen Flow Rate Intake/Output Intake/Output: Intake & Output 12/21/24 12/22/24 12/23/24 12/24/24 23:59 23:59 23:59 23:59 Intake Total 1744.7 4084.3 3165.2 1384.6667 Output Total 1400 1600 3100 525 Balance 344.7 2484.3 65.2 859.6667 Meds/Results Medications: Active Medications Generic Name Dose Route Start Last Admin Trade Name Freq PRN Reason Stop Dose Admin Acetaminophen 650 mg 12/21/24 09:45 12/22/24 20:01 Acetaminophen Elixir 325 Mg/10.15 Ml Udc FEED TUBE 650 mg Q4H PRN Administration Pain (Scale Score 1-3)/fever Albuterol 2 puff 12/21/24 09:46 Albuterol Sulfate (*Sp) Aerosol 1 Puff INHALATION PRN PRN Wheezing Ascorbic Acid 500 mg 12/21/24 09:50 12/24/24 08:44 Ascorbic Acid 500 Mg Tablet FEED TUBE 500 mg DAILY SANDRA Administration Aspirin 81 mg 12/21/24 09:50 12/22/24 08:48 Aspirin 81 Mg Chewable Tablet FEED TUBE 81 mg DAILY SANDRA Administration Atorvastatin Calcium 80 mg 12/21/24 21:00 12/23/24 20:04 Atorvastatin 40 Mg Tablet FEED TUBE 80 mg HS SANDRA Administration Bisacodyl 10 mg 12/21/24 09:40 Bisacodyl 10 Mg Suppository RECTAL DAILY PRN constipation Dextrose 12.5 gm 12/21/24 23:44 Dextrose 50% 25 Gm/50 Ml Syringe IV PUSH PRN PRN Hypoglycemia Protocol Ezetimibe 10 mg 12/21/24 21:00 12/23/24 20:04 Ezetimibe 10 Mg Tablet FEED TUBE 10 mg HS SANDRA Administration Glucagon 1 mg 12/21/24 23:44 Glucagon For Inj 1 Mg Vial IM PRN PRN Hypoglycemia Protocol Glucose 15 gm 12/21/24 23:44 Glucose Oral Gel 15 Gm Of Glucse In 37.5 Gm Tube PO PRN PRN Hypoglycemia Protocol Hydrocortisone Sodium Succinate 100 mg 12/24/24 09:00 12/24/24 08:43 Hydrocortisone Sodium Succinate 100 Mg/2 Ml Vial IV PUSH 12/25/24 23:59 100 mg QAM SANDRA Administration Piperacillin/Tazobactam/Dextrose 3.375 gm in 50 mls @ 100 mls/hr 12/21/24 10:00 12/24/24 10:32 Zosyn 3.375 Gm/Ns 50 Ml IVPB Infused Q6H SANDRA Infusion Dextrose 1,000 mls @ 100 mls/hr 12/21/24 23:44 Dextrose 5% 1,000 Ml IVPB PRN PRN Hypoglycemia Protocol Vancomycin HCl 1,000 mg in 250 mls @ 250 mls/hr 12/24/24 19:00 Vancomycin 1,000 Mg/Ns 250 Ml IVPB Q12H SANDRA Insulin Aspart 3 - 6 units 12/22/24 20:00 12/24/24 11:54 Insulin Aspart (*Bkc) 100 Units/Ml SUB-Q 4 units Q4H SANDRA Administration Protocol Magnesium Citrate 300 ml 12/21/24 09:40 Magnesium Citrate 300 Ml Btl FEED TUBE DAILY PRN Constipation Midodrine 10 mg 12/23/24 09:00 12/24/24 13:27 Midodrine Hcl 10 Mg Tablet FEED TUBE 10 mg TID SANDRA Administration Ondansetron HCl 4 mg 12/23/24 16:46 12/24/24 00:12 Ondansetron Inj 4 Mg/2 Ml Vial IV PUSH 4 mg Q4H PRN Administration Nausea And Vomiting Pantoprazole Sodium 40 mg 12/21/24 21:00 12/24/24 08:43 Pantoprazole Sodium Iv 40 Mg Vial IV PUSH 40 mg Q12HR SANDRA Administration Silver Sulfadiazine 1 applic 12/21/24 09:50 12/24/24 08:45 Silver Sulfadiazine 1% Cr 400 Gm Jar (*Bkc) TOPICAL 1 applic DAILY SANDRA Administration Sodium Chloride 10 ml 12/20/24 22:00 12/24/24 13:28 Central Line Flush IV PUSH 10 ml Q8HR SANDRA Administration Sodium Chloride 20 ml 12/20/24 17:15 12/23/24 06:02 Central Line Flush IV PUSH 20 ml PRN PRN Administration after blood draws Vancomycin HCl 125 mg 12/21/24 12:00 12/24/24 11:48 Vancomycin Oral 125 Mg/2.5 Ml Syrup FEED TUBE 125 mg Q6HR SANDRA Administration Vitamin D 1,000 units 12/21/24 09:50 12/24/24 08:44 Cholecalciferol 1,000 Units Tablet FEED TUBE 1,000 units DAILY SANDRA Administration Radiology Results: ITS Impressions Head CT 12/20/24 16:30 IMPRESSION: No acute intracranial findings. Chest/Abdomen/Pelvis CT 12/20/24 16:42 IMPRESSION: CHEST: 1. Highly suggestive of pneumonia in the right lower lobe. 2. No evidence of pulmonary embolism or dissection. ABDOMEN/PELVIS: 1. No evidence of appendicitis, diverticulitis or intestinal obstruction. 2. Fluid in the large bowel which may indicate diarrhea versus enteritis. Clinical correlation advised. 3. Multiple fibroids. 4. Compression fracture of L4 which may be acute or chronic. MRI is advised. 5. Severe atherosclerotic changes of the iliac arteries. Severe stenosis of both iliac arteries. Chest X-Ray 12/24/24 06:36 IMPRESSION: Small left-sided pleural effusion with mild pulmonary vascular congestion. No focal infiltrate. Labs Labs: Laboratory Results - last 24 hr 12/23/24 12/23/24 12/23/24 16:21 19:13 19:44 WBC 5.9 RBC 3.03 L Hgb 7.7 L Hct 25.3 L MCV 83.5 MCH 25.4 L MCHC 30.4 L RDW 15.2 H Plt Count 94 L MPV 13.4 H % Immature Plt Fraction 12.6 H Sodium 146 H Potassium 3.6 Chloride 115 H Carbon Dioxide 22 Anion Gap 9 BUN 15 Creatinine 0.34 L Estim Creat Clear Calc 89 Estimated GFR > 60 Glucose 235 H POC Capillary Glucose 285 H 231 H Calcium 8.3 L Phosphorus Magnesium Total Bilirubin AST ALT Alkaline Phosphatase Total Protein Albumin Vancomycin Trough 12/23/24 12/24/24 12/24/24 21:31 00:16 03:19 WBC RBC Hgb Hct MCV MCH MCHC RDW Plt Count MPV % Immature Plt Fraction Sodium Potassium Chloride Carbon Dioxide Anion Gap BUN Creatinine Estim Creat Clear Calc Estimated GFR Glucose POC Capillary Glucose 222 H 184 H Calcium Phosphorus Magnesium Total Bilirubin AST ALT Alkaline Phosphatase Total Protein Albumin Vancomycin Trough 8.5 L 12/24/24 12/24/24 12/24/24 05:49 07:46 11:49 WBC 4.2 L RBC 2.80 L Hgb 7.1 L Hct 23.5 L MCV 83.9 MCH 25.4 L MCHC 30.2 L RDW 15.0 H Plt Count 89 L MPV 12.5 H % Immature Plt Fraction 11.6 H Sodium 146 H Potassium 3.2 L Chloride 113 H Carbon Dioxide 23 Anion Gap 10 BUN 15 Creatinine 0.33 L Estim Creat Clear Calc 91 Estimated GFR > 60 Glucose 219 H POC Capillary Glucose 228 H 257 H Calcium 8.3 L Phosphorus 2.2 L Magnesium 2.0 Total Bilirubin 0.4 AST 17 ALT 16 Alkaline Phosphatase 38 Total Protein 6.0 L Albumin 3.9 Vancomycin Trough 12/24/24 13:48 WBC RBC Hgb Hct MCV MCH MCHC RDW Plt Count MPV % Immature Plt Fraction Sodium Potassium Chloride Carbon Dioxide Anion Gap BUN Creatinine Estim Creat Clear Calc Estimated GFR Glucose POC Capillary Glucose Calcium Phosphorus Magnesium Total Bilirubin AST ALT Alkaline Phosphatase Total Protein Albumin Vancomycin Trough 18.7 Quality VTE Prophylaxis VTE prophylaxis: mechanical ordered and pharmacologic ordered Hospitalist MIPS Advance Care Plan I have confirmed that the patient's Advanced Care Plan is present, code status is documented, or surrogate decision maker is listed in patient medical record.: Yes Medication Reconciliation I have utilized all available resources to obtain, update and review the patients current medications (includes all prescriptions, OTC, herbals, cannabis, and nutritional supplements).: Yes
[2024-12-24 16:08] LABS: Glucose Point of Care 254 mg/dl (65-105)
--- NOTE | 2024-12-24 17:26 | PC.NURSE ---
This patient, Marilyn Ram, was transferred to [facility] on 12/24/24 at 1725. Personal belongings sent with patient. Report given to Starla. Appropriate documentation sent with patient.
[2024-12-24] MEDS: ATORVASTATIN 40 MG TABLET 80 MG FEED TUBE (20:32)
[2024-12-24] MEDS: EZETIMIBE 10 MG TABLET FEED TUBE (20:32)
[2024-12-24 20:36] LABS: Glucose Point of Care 216 mg/dl (65-105)
[2024-12-25] VITALS (13 sets, daily range): BP systolic 104–132; BP diastolic 60–72; PULSE 47–93; RESP 16–24; TEMP 36.3–37.2; O2SAT 94–98
[2024-12-25 00:14] LABS: Glucose Point of Care 224 mg/dl (65-105)
[2024-12-25] MEDS: INSULIN ASPART (*BKC) 100 UNITS/ML SUB-Q ×4 (00:19→20:21)
[2024-12-25] MEDS: PIPERACILLN/TAZ 3.375GM/NS50ML 3.375 GM/50 ML BAG IVPB ×4 (04:37→22:58)
[2024-12-25] MEDS: CENTRAL LINE FLUSH 10 ML IV PUSH ×3 (04:39→22:58)
[2024-12-25 04:51] LABS: Hematocrit 26.2 % (37.0-47.0); Hemoglobin 7.9 g/dL (12.0-15.0); Mean Corpuscular HGB Conc 30.2 g/dl (32-36); Mean Corpuscular Hemoglobin 25.4 pg (26-34); Mean Corpuscular Volume 84.2 fl (80-100); Mean Platelet Volume 13.1 fl (7.4-10.4); Platelet Count Result 150 k/mm3 (150-375); Red Blood Count 3.11 M/mm3 (4.2-5.4); Red Cell Distribution Width 15.5 % (11.5-14.5); White Blood Count 9.4 K/mm3 (4.5-10.0)
[2024-12-25 05:05] LABS: Alanine Aminotransferase 14 U/L (6-35); Alkaline Phosphatase 46 U/L (38-126); Anion Gap 4 mmol/L (4-12); Aspartate Amino Transferase 17 U/L (14-36); Bilirubin,Total 0.2 mg/dL (0.2-1.3); Blood Urea Nitrogen 27 mg/dL (7-17); Calcium 8.3 mg/dL (8.4-10.2); Carbon Dioxide 24 mmol/L (22-30); Chloride 118 mmol/L (98-107); Estimated CRCL calculation 65 ml/min; Estimated Glomerular Filt Rate > 60; Glucose 159 mg/dL (65-110); Phosphorus 1.8 mg/dL (2.5-4.5); Sodium 146 mmol/L (137-145)
[2024-12-25] MEDS: VANCOMYCIN ORAL 125 MG/2.5 ML SYRUP FEED TUBE ×4 (05:32→23:01)
[2024-12-25] MEDS: VANCOMYCIN 1,000 MG/NS 250 ML 1,000 MG/250 ML BAG 250 MG IVPB (06:39)
[2024-12-25 07:54] LABS: Glucose Point of Care 172 mg/dl (65-105)
[2024-12-25] MEDS: ASCORBIC ACID 500 MG TABLET FEED TUBE (08:39)
[2024-12-25] MEDS: HYDROCORTISONE SODIUM SUCCINATE 100 MG/2 ML VIAL IV PUSH (08:39)
[2024-12-25] MEDS: MIDODRINE HCL 10 MG TABLET FEED TUBE ×3 (08:39→17:05)
[2024-12-25] MEDS: PANTOPRAZOLE SODIUM IV 40 MG VIAL IV PUSH (08:39)
[2024-12-25] MEDS: CHOLECALCIFEROL 1,000 UNITS TABLET 1000 UNITS FEED TUBE (08:40)
[2024-12-25] MEDS: SILVER SULFADIAZINE 1% CR 400 GM JAR (*BKC) 1 APPLIC TOPICAL (08:41)
--- NOTE | 2024-12-25 09:41 | P.PNIM_ITS ---
Progress Note: A&P Assessment and Plan (1) Septic shock: Code(s): A41.9 - Sepsis, unspecified organism; R65.21 - Severe sepsis with septic shock Status: Acute Assessment and Plan: Sepsis secondary to pneumonia, ? Questionable UTI and also dehydration from C diff ascended diarrhea Her pneumonia could be also be aspiration since she is on tube feeds She is off IV fluids now and also off of vasopressors She received 25% albumin and continue midodrine Wean off hydrocortisone Blood cultures and urine cultures have been sent and are pending Continue Zosyn Started Cefuroxime and Linezolid Stool positive for C diff and she is on per tube vancomycin (2) Gastrostomy status: Code(s): Z93.1 - Gastrostomy status Status: Acute Assessment and Plan: Continue tube feeding (3) Right upper quadrant abdominal abscess: Code(s): K65.1 - Peritoneal abscess Status: Acute Assessment and Plan: Patient had a cholecystostomy tube placed for cholecystitis in 2020. 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 This is a chronic issue Continue antibiotics, local wound care and open draining Patient was evaluated by General surgery 2 months ago and due to her being a poor candidate for any surgical intervention they recommended conservative management with local wound care and antibiotic. Site does not look infected as there is no redness or erythema around it (4) Acute hypernatremia: Code(s): E87.0 - Hyperosmolality and hypernatremia Status: Acute Assessment and Plan: Hypernatremia secondary to dehydration She presented with sodium of 168. Nephrology was consulted and has been managing fluids and correction of hyponatremia Sodium has improved and patient is now off of IV fluids. Continue free water flush to 200 (5) CVA (cerebral vascular accident): Code(s): I63.9 - Cerebral infarction, unspecified Status: Acute Assessment and Plan: History of CVA. Continue statin. Hold aspirin due to drop in hemoglobin (6) Pneumonia: Code(s): J18.9 - Pneumonia, unspecified organism Status: Acute Assessment and Plan: See above (7) Reflux esophagitis: Qualifiers: Esophagitis bleeding: without hemorrhage Qualified Code(s): K21.00 - Gastro-esophageal reflux disease with esophagitis, without bleeding Code(s): K21.00 - Gastro-esophageal reflux disease with esophagitis, without bleeding Status: Chronic Assessment and Plan: PPI (8) Dehydration: Code(s): E86.0 - Dehydration Status: Acute Assessment and Plan: See above (9) Diarrhea: Code(s): R19.7 - Diarrhea, unspecified Status: Acute Assessment and Plan: Positive for C diff Continue per tube vancomycin FMS (10) Electrolyte abnormality: Code(s): E87.8 - Other disorders of electrolyte and fluid balance, not elsewhere classified Status: Acute Assessment and Plan: Replacement of low phosphate ordered (11) Anemia: Qualifiers: Anemia type: unspecified type Qualified Code(s): D64.9 - Anemia, unspecified Code(s): D64.9 - Anemia, unspecified Status: Acute Assessment and Plan: Patient has Chronic anemia but patient presented with normal hemoglobin level likely secondary to hemoconcentration which decreased suspected after patient received IV fluids Hemoglobin had stabilized in closed of 9 but further drops 0.4 today She had a positive Hemoccult at the time of presentation but her stools are mostly brown I will hold aspirin Continue monitor hemoglobin and transfuse if needed Continue Protonix IV q.12 hours GI consulted Subjective Date/time seen: 12/25/24 09:41 Interval history: As per care coordination trying to locate her son who possibly incarcerated in other state and her other son . long-term applied for guardianship program. Patient will receive Solu-Cortef until today. Patient is on oral vancomycin due to C diff. Patient is on Zosyn for sepsis possibly due to pneumonia/UTI.Discontinue vancomycin. Started Cefruroxime and Linezolid Review of Systems Review of Systems: ROS unobtainable: Yes unobtainable due to medical condition and unobtainable due to mental status Exam Narrative: General: Pt is malnourished cachectic old frail female who is not in any distress and is not communicated Lungs/Chest: Trachea central Clear BS B/L, No crackles or wheezing. Cardiac: RRR. Normal S1 S2. No murmurs Circulation: Pedal pulses are intact and symmetrical. Abdomen: Normal bowel sounds.. Soft. NT. ND. There is a fistula/wound on the abdominal wall and right upper quadrant with minimal amount of clear drainage under the dressing. There is a PEG tube in place Extremities: No clubbing, cyanosis or edema. Warm : Marquis in place Neurologic: Pupils are unequal but both reactive to light left is bigger than right, dysconjugate gaze, she moves all 4 extremities but left more than right, does not follow command, does not answer any course, does not exhibit purposeful movement, she has contractures of right upper and right lower extremities, right lower extremities contracture did flexion position at the hip Skin: No Rash Objective Data Vital Signs Vital Signs: Vital Signs - 24 hr 12/24/24 10:00 12/24/24 10:00 12/24/24 12:00 Temperature 97.8 F Pulse Rate 88 88 Respiratory Rate 25 H Blood Pressure 105/56 L Pulse Oximetry 100 97 Oxygen Delivery Room Air Oxygen Flow Rate Fraction of Inspired Oxygen 12/24/24 12:00 12/24/24 12:00 12/24/24 14:00 Temperature 98.4 F Pulse Rate 76 70 50 L Respiratory Rate 26 H Blood Pressure 118/64 Pulse Oximetry 98 Oxygen Delivery Oxygen Flow Rate Fraction of Inspired Oxygen 12/24/24 16:00 12/24/24 16:00 12/24/24 16:00 Temperature 97.6 F Pulse Rate 48 L 49 L Respiratory Rate 23 H Blood Pressure 122/62 Pulse Oximetry 98 97 Oxygen Delivery Nasal Cannula Oxygen Flow Rate 2 Fraction of Inspired Oxygen 12/24/24 17:14 12/24/24 18:00 12/24/24 20:00 Temperature Pulse Rate 58 L 64 Respiratory Rate 20 Blood Pressure Pulse Oximetry 99 96 Oxygen Delivery Room Air Room Air Oxygen Flow Rate Fraction of Inspired Oxygen 21 12/24/24 20:00 12/24/24 20:08 12/24/24 22:00 Temperature 97.6 F Pulse Rate 64 61 52 L Respiratory Rate 20 Blood Pressure 125/55 L Pulse Oximetry 96 Oxygen Delivery Oxygen Flow Rate Fraction of Inspired Oxygen 12/24/24 22:33 12/24/24 23:50 12/24/24 23:56 Temperature 98.6 F Pulse Rate 63 46 L Respiratory Rate 20 20 Blood Pressure 111/64 Pulse Oximetry 96 95 95 Oxygen Delivery Room Air Room Air Oxygen Flow Rate Fraction of Inspired Oxygen 21 21 12/24/24 23:56 12/25/24 02:00 12/25/24 03:35 Temperature 98.9 F Pulse Rate 46 L 51 L 63 Respiratory Rate 20 Blood Pressure 114/60 Pulse Oximetry 97 Oxygen Delivery Oxygen Flow Rate Fraction of Inspired Oxygen 12/25/24 04:00 12/25/24 04:00 12/25/24 06:00 Temperature Pulse Rate 56 L 56 L 54 L Respiratory Rate 20 Blood Pressure Pulse Oximetry 97 Oxygen Delivery Room Air Oxygen Flow Rate Fraction of Inspired Oxygen 12/25/24 08:00 Temperature 97.3 F L Pulse Rate 81 Respiratory Rate 16 Blood Pressure 104/67 Pulse Oximetry 98 Oxygen Delivery Oxygen Flow Rate Fraction of Inspired Oxygen Intake/Output Intake/Output: Intake & Output 12/22/24 12/23/24 12/24/24 12/25/24 23:59 23:59 23:59 23:59 Intake Total 4084.3 3165.2 9722.6670 50 Output Total 1600 3100 900 300 Balance 2484.3 65.2 1952.6667 -250 Meds/Results Medications: Active Medications Generic Name Dose Route Start Last Admin Trade Name Freq PRN Reason Stop Dose Admin Acetaminophen 650 mg 12/21/24 09:45 12/22/24 20:01 Acetaminophen Elixir 325 Mg/10.15 Ml Udc FEED TUBE 650 mg Q4H PRN Administration Pain (Scale Score 1-3)/fever Albuterol 2 puff 12/21/24 09:46 Albuterol Sulfate (*Sp) Aerosol 1 Puff INHALATION PRN PRN Wheezing Ascorbic Acid 500 mg 12/21/24 09:50 12/25/24 08:39 Ascorbic Acid 500 Mg Tablet FEED TUBE 500 mg DAILY SANDRA Administration Aspirin 81 mg 12/21/24 09:50 12/22/24 08:48 Aspirin 81 Mg Chewable Tablet FEED TUBE 81 mg DAILY SANDRA Administration Atorvastatin Calcium 80 mg 12/21/24 21:00 12/24/24 20:32 Atorvastatin 40 Mg Tablet FEED TUBE 80 mg HS SANDRA Administration Bisacodyl 10 mg 12/21/24 09:40 Bisacodyl 10 Mg Suppository RECTAL DAILY PRN constipation Dextrose 12.5 gm 12/21/24 23:44 Dextrose 50% 25 Gm/50 Ml Syringe IV PUSH PRN PRN Hypoglycemia Protocol Ezetimibe 10 mg 12/21/24 21:00 12/24/24 20:32 Ezetimibe 10 Mg Tablet FEED TUBE 10 mg HS SANDRA Administration Glucagon 1 mg 12/21/24 23:44 Glucagon For Inj 1 Mg Vial IM PRN PRN Hypoglycemia Protocol Glucose 15 gm 12/21/24 23:44 Glucose Oral Gel 15 Gm Of Glucse In 37.5 Gm Tube PO PRN PRN Hypoglycemia Protocol Hydrocortisone Sodium Succinate 100 mg 12/24/24 09:00 12/25/24 08:39 Hydrocortisone Sodium Succinate 100 Mg/2 Ml Vial IV PUSH 12/25/24 23:59 100 mg QAM SANDRA Administration Piperacillin/Tazobactam/Dextrose 3.375 gm in 50 mls @ 100 mls/hr 12/21/24 10:00 12/25/24 09:12 Zosyn 3.375 Gm/Ns 50 Ml IVPB 100 mls/hr Q6H SANDRA Administration Dextrose 1,000 mls @ 100 mls/hr 12/21/24 23:44 Dextrose 5% 1,000 Ml IVPB PRN PRN Hypoglycemia Protocol Vancomycin HCl 1,000 mg in 250 mls @ 250 mls/hr 12/24/24 19:00 12/25/24 06:39 Vancomycin 1,000 Mg/Ns 250 Ml IVPB 250 mls/hr Q12H SANDRA Administration Insulin Aspart 3 - 6 units 12/22/24 20:00 12/25/24 08:37 Insulin Aspart (*Bkc) 100 Units/Ml SUB-Q Not Given Q4H SANDRA Protocol Magnesium Citrate 300 ml 12/21/24 09:40 Magnesium Citrate 300 Ml Btl FEED TUBE DAILY PRN Constipation Midodrine 10 mg 12/23/24 09:00 12/25/24 08:39 Midodrine Hcl 10 Mg Tablet FEED TUBE 10 mg TID SANDRA Administration Ondansetron HCl 4 mg 12/23/24 16:46 12/24/24 00:12 Ondansetron Inj 4 Mg/2 Ml Vial IV PUSH 4 mg Q4H PRN Administration Nausea And Vomiting Pantoprazole Sodium 40 mg 12/21/24 21:00 12/25/24 08:39 Pantoprazole Sodium Iv 40 Mg Vial IV PUSH 40 mg Q12HR SANDRA Administration Silver Sulfadiazine 1 applic 12/21/24 09:50 12/25/24 08:41 Silver Sulfadiazine 1% Cr 400 Gm Jar (*Bkc) TOPICAL 1 applic DAILY SANDRA Administration Sodium Chloride 10 ml 12/20/24 22:00 12/25/24 04:39 Central Line Flush IV PUSH 10 ml Q8HR SANDRA Administration Sodium Chloride 20 ml 12/20/24 17:15 12/23/24 06:02 Central Line Flush IV PUSH 20 ml PRN PRN Administration after blood draws Vancomycin HCl 125 mg 12/21/24 12:00 12/25/24 05:32 Vancomycin Oral 125 Mg/2.5 Ml Syrup FEED TUBE 125 mg Q6HR SANDRA Administration Vitamin D 1,000 units 12/21/24 09:50 12/25/24 08:40 Cholecalciferol 1,000 Units Tablet FEED TUBE 1,000 units DAILY SANDRA Administration Radiology Results: ITS Impressions Head CT 12/20/24 16:30 IMPRESSION: No acute intracranial findings. Chest/Abdomen/Pelvis CT 12/20/24 16:42 IMPRESSION: CHEST: 1. Highly suggestive of pneumonia in the right lower lobe. 2. No evidence of pulmonary embolism or dissection. ABDOMEN/PELVIS: 1. No evidence of appendicitis, diverticulitis or intestinal obstruction. 2. Fluid in the large bowel which may indicate diarrhea versus enteritis. Clinical correlation advised. 3. Multiple fibroids. 4. Compression fracture of L4 which may be acute or chronic. MRI is advised. 5. Severe atherosclerotic changes of the iliac arteries. Severe stenosis of both iliac arteries. Chest X-Ray 12/24/24 06:36 IMPRESSION: Small left-sided pleural effusion with mild pulmonary vascular congestion. No focal infiltrate. Labs Labs: Laboratory Results - last 24 hr 12/24/24 12/24/24 12/24/24 11:49 13:48 15:57 WBC RBC Hgb Hct MCV MCH MCHC RDW Plt Count MPV Sodium Potassium Chloride Carbon Dioxide Anion Gap BUN Creatinine Estim Creat Clear Calc Estimated GFR Glucose POC Capillary Glucose 257 H 254 H Calcium Phosphorus Magnesium Total Bilirubin AST ALT Alkaline Phosphatase Total Protein Albumin Vancomycin Trough 18.7 12/24/24 12/25/24 12/25/24 20:25 00:12 04:26 WBC 9.4 RBC 3.11 L Hgb 7.9 L Hct 26.2 L MCV 84.2 MCH 25.4 L MCHC 30.2 L RDW 15.5 H Plt Count 150 D MPV 13.1 H Sodium 146 H Potassium 3.0 L Chloride 118 H Carbon Dioxide 24 Anion Gap 4 BUN 27 H D Creatinine 0.49 L Estim Creat Clear Calc 65 Estimated GFR > 60 Glucose 159 H POC Capillary Glucose 216 H 224 H Calcium 8.3 L Phosphorus 1.8 L Magnesium 2.0 Total Bilirubin 0.2 AST 17 ALT 14 Alkaline Phosphatase 46 Total Protein 5.0 L Albumin 3.0 L Vancomycin Trough 12/25/24 07:48 WBC RBC Hgb Hct MCV MCH MCHC RDW Plt Count MPV Sodium Potassium Chloride Carbon Dioxide Anion Gap BUN Creatinine Estim Creat Clear Calc Estimated GFR Glucose POC Capillary Glucose 172 H Calcium Phosphorus Magnesium Total Bilirubin AST ALT Alkaline Phosphatase Total Protein Albumin Vancomycin Trough Quality VTE Prophylaxis VTE prophylaxis: mechanical ordered and pharmacologic ordered Hospitalist MIPS Advance Care Plan I have confirmed that the patient's Advanced Care Plan is present, code status is documented, or surrogate decision maker is listed in patient medical record.: Yes Medication Reconciliation I have utilized all available resources to obtain, update and review the patients current medications (includes all prescriptions, OTC, herbals, canna bis, and nutritional supplements).: Yes
[2024-12-25] MEDS: POTASSIUM CHLORIDE 20 MEQ PACKET (FOR LIQUID) 40 MEQ FEED TUBE (10:16)
--- NOTE | 2024-12-25 10:55 | P.PNNP_ITS ---
Progress Note: A&P Assessment and Plan (1) Hypernatremia: Code(s): E87.0 - Hyperosmolality and hypernatremia Status: Acute Assessment and Plan: * relatively stable * suspect due significant free water deficit secondary to: * prerenal factors * insensible losses * diarrhea * infection (pneumiona + C.diff colitis) * inadequate free water administration at her nursing facility (?) * other (?) * s/p aggressive IVF resuscitation in ER * resumed on free water flushes - slowly titrate needed * intermediate records indicate she was on FWF of 250cc q4hr * follow serial sodium levels (2) Septic shock: Code(s): A41.9 - Sepsis, unspecified organism; R65.21 - Severe sepsis with septic shock Status: Acute Assessment and Plan: * secondary to pneumonia +/- UTI along with C. diff colitis * aspiration pneumonia given location (RLL) and on tube feeds(?) * s/p aggressive IVF resuscitation * weaned off vasopressor therapy * on midodrine * follow culture data - negative to date * on antibiotic therapy * follow trend of hemodynamics (3) Pneumonia: Code(s): J18.9 - Pneumonia, unspecified organism Status: Acute Assessment and Plan: * as noted by admission imaging * respiratory status relatively stable * on antibiotic therapy (4) Clostridium difficile colitis: Code(s): A04.72 - Enterocolitis due to Clostridium difficile, not specified as recurrent Status: Acute Assessment and Plan: * C. diff toxin assay positive * noted history of diarrhea since admission * on oral vancomycin (5) Hypokalemia: Code(s): E87.6 - Hypokalemia Status: Acute Assessment and Plan: * suspect due to GI loss (diarrhea) * may have a component of total body store depletion as well * replete/replace as needed * follow magnesium as well (6) Hypophosphatemia: Code(s): E83.39 - Other disorders of phosphorus metabolism Status: Acute Assessment and Plan: * suspect due to GI loss/diarrhea * continue replacement as needed * will start scheduled K-Phos per tube (7) Anemia: Qualifiers: Anemia type: unspecified type Qualified Code(s): D64.9 - Anemia, unspecified Code(s): D64.9 - Anemia, unspecified Status: Acute Assessment and Plan: * admission creatinine likely hemoconcentrated * drop in H/H presumably due to volume resuscitation * follow trend of H/H (8) Right upper quadrant abdominal abscess: Code(s): K65.1 - Peritoneal abscess Status: Acute Assessment and Plan: * noted history of cholecystostomy tube placed for cholecystitis in 2020 * tube was eventually removed but 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 Subjective Date/time seen: 12/25/24 10:55 Interval history: Follow-up for acute hyponatremia. Chart reviewed since last seen -- weaned off vasopressor therapy and transferred out of ICU; mentation seems unchanged (unresponsive and non-verbal) at the time of my visit; continues to remain hemodynamically stable; sodium doing better if not stable but continues to have issues with low potassium and phosphorus requiring ongoing replacement; no other acute issues/events overnight or earlier this morning. Exam Narrative: General: thin cachetic and ill-appearing female in NAD Heart: normal S1 and S2; no rub Lungs: clear anteriorly; decreased at bases Abdomen: soft, nontender, nondistended, positive bowel sounds; +G tube; fistula/wound in RUQ with dressing in place Extremities: no cyanosis or clubbing; no edema Skin: no rash Objective Data Vital Signs Vital Signs: Vital Signs Temp Pulse Resp BP Pulse Ox O2 Del Method O2 Flow Rate 12/25/24 10:00 97.6 F 93 24 H 119/72 94 12/25/24 08:00 73 12/25/24 08:00 97.3 F L 81 16 104/67 98 12/25/24 06:00 54 L 12/25/24 04:00 56 L 12/25/24 04:00 56 L 20 97 Room Air 12/25/24 03:35 98.9 F 63 20 114/60 97 12/25/24 02:00 51 L 12/24/24 23:56 46 L 12/24/24 23:56 46 L 20 95 Room Air 12/24/24 23:50 98.6 F 63 20 111/64 95 12/24/24 22:33 96 Room Air 12/24/24 22:00 52 L 12/24/24 20:08 97.6 F 61 20 125/55 L 96 12/24/24 20:00 64 12/24/24 20:00 64 20 96 Room Air 12/24/24 18:00 58 L 12/24/24 17:14 99 Room Air 12/24/24 16:00 97.6 F 49 L 23 H 122/62 97 12/24/24 16:00 48 L 12/24/24 16:00 98 Nasal Cannula 2 Intake/Output Intake/Output: Intake & Output 12/22/24 12/23/24 12/24/24 12/25/24 23:59 23:59 23:59 23:59 Intake Total 4084.3 3165.2 2852.6667 50 Output Total 1600 3100 900 300 Balance 2484.3 65.2 1952.6667 -250 Meds/Results Medications: Active Medications Generic Name Dose Route Start Last Admin Trade Name Freq PRN Reason Stop Dose Admin Acetaminophen 650 mg 12/21/24 09:45 12/22/24 20:01 Acetaminophen Elixir 325 Mg/10.15 Ml Udc FEED TUBE 650 mg Q4H PRN Administration Pain (Scale Score 1-3)/fever Albuterol 2 puff 12/21/24 09:46 Albuterol Sulfate (*Sp) Aerosol 1 Puff INHALATION PRN PRN Wheezing Ascorbic Acid 500 mg 12/21/24 09:50 12/25/24 08:39 Ascorbic Acid 500 Mg Tablet FEED TUBE 500 mg DAILY SANDRA Administration Aspirin 81 mg 12/21/24 09:50 12/22/24 08:48 Aspirin 81 Mg Chewable Tablet FEED TUBE 81 mg DAILY SANDRA Administration Atorvastatin Calcium 80 mg 12/21/24 21:00 12/24/24 20:32 Atorvastatin 40 Mg Tablet FEED TUBE 80 mg HS SANDRA Administration Bisacodyl 10 mg 12/21/24 09:40 Bisacodyl 10 Mg Suppository RECTAL DAILY PRN constipation Cefuroxime Axetil 500 mg 12/26/24 23:00 Cefuroxime Axetil 250 Mg Tablet FEED TUBE 12/29/24 21:01 Q12HR SANDRA Dextrose 12.5 gm 12/21/24 23:44 Dextrose 50% 25 Gm/50 Ml Syringe IV PUSH PRN PRN Hypoglycemia Protocol Ezetimibe 10 mg 12/21/24 21:00 12/24/24 20:32 Ezetimibe 10 Mg Tablet FEED TUBE 10 mg HS SANDRA Administration Glucagon 1 mg 12/21/24 23:44 Glucagon For Inj 1 Mg Vial IM PRN PRN Hypoglycemia Protocol Glucose 15 gm 12/21/24 23:44 Glucose Oral Gel 15 Gm Of Glucse In 37.5 Gm Tube PO PRN PRN Hypoglycemia Protocol Hydrocortisone Sodium Succinate 100 mg 12/24/24 09:00 12/25/24 08:39 Hydrocortisone Sodium Succinate 100 Mg/2 Ml Vial IV PUSH 12/25/24 23:59 100 mg QAM SANDRA Administration Piperacillin/Tazobactam/Dextrose 3.375 gm in 50 mls @ 100 mls/hr 12/21/24 10:00 12/25/24 09:12 Zosyn 3.375 Gm/Ns 50 Ml IVPB 12/26/24 23:59 100 mls/hr Q6H SANDRA Administration Dextrose 1,000 mls @ 100 mls/hr 12/21/24 23:44 Dextrose 5% 1,000 Ml IVPB PRN PRN Hypoglycemia Protocol Insulin Aspart 3 - 6 units 12/22/24 20:00 12/25/24 12:22 Insulin Aspart (*Bkc) 100 Units/Ml SUB-Q 3 units Q4H SANDRA Administration Protocol Linezolid 600 mg 12/25/24 21:00 Linezolid 600 Mg Tablet FEED TUBE 12/26/24 21:01 Q12HR SANDRA Magnesium Citrate 300 ml 12/21/24 09:40 Magnesium Citrate 300 Ml Btl FEED TUBE DAILY PRN Constipation Midodrine 10 mg 12/23/24 09:00 12/25/24 12:13 Midodrine Hcl 10 Mg Tablet FEED TUBE 10 mg TID SANDRA Administration Ondansetron HCl 4 mg 12/23/24 16:46 12/24/24 00:12 Ondansetron Inj 4 Mg/2 Ml Vial IV PUSH 4 mg Q4H PRN Administration Nausea And Vomiting Potassium Phos/Sodium Phos 1 packet 12/26/24 09:00 Potassium/Phosphorus/Sodium 1.5 Gm Packet PO DAILY SANDRA Silver Sulfadiazine 1 applic 12/21/24 09:50 12/25/24 08:41 Silver Sulfadiazine 1% Cr 400 Gm Jar (*Bkc) TOPICAL 1 applic DAILY SANDRA Administration Sodium Chloride 10 ml 12/20/24 22:00 12/25/24 14:08 Central Line Flush IV PUSH 10 ml Q8HR SANDRA Administration Sodium Chloride 20 ml 12/20/24 17:15 12/23/24 06:02 Central Line Flush IV PUSH 20 ml PRN PRN Administration after blood draws Vancomycin HCl 125 mg 12/21/24 12:00 12/25/24 12:13 Vancomycin Oral 125 Mg/2.5 Ml Syrup FEED TUBE 01/02/25 06:01 125 mg Q6HR SANDRA Administration Vitamin D 1,000 units 12/21/24 09:50 12/25/24 08:40 Cholecalciferol 1,000 Units Tablet FEED TUBE 1,000 units DAILY SANDRA Administration Radiology Results: ITS Impressions Head CT 12/20/24 16:30 IMPRESSION: No acute intracranial findings. Chest/Abdomen/Pelvis CT 12/20/24 16:42 IMPRESSION: CHEST: 1. Highly suggestive of pneumonia in the right lower lobe. 2. No evidence of pulmonary embolism or dissection. ABDOMEN/PELVIS: 1. No evidence of appendicitis, diverticulitis or intestinal obstruction. 2. Fluid in the large bowel which may indicate diarrhea versus enteritis. Clinical correlation advised. 3. Multiple fibroids. 4. Compression fracture of L4 which may be acute or chronic. MRI is advised. 5. Severe atherosclerotic changes of the iliac arteries. Severe stenosis of both iliac arteries. Chest X-Ray 12/24/24 06:36 IMPRESSION: Small left-sided pleural effusion with mild pulmonary vascular congestion. No focal infiltrate. Labs Labs: Laboratory Tests 12/25/24 04:26 WBC 9.4 Hgb 7.9 L Hct 26.2 L Plt Count 150 D Sodium 146 H Potassium 3.0 L Chloride 118 H Carbon Dioxide 24 Anion Gap 4 BUN 27 H D Creatinine 0.49 L Estim Creat Clear Calc 65 Estimated GFR > 60 Glucose 159 H Calcium 8.3 L Phosphorus 1.8 L Magnesium 2.0 Total Bilirubin 0.2 AST 17 ALT 14 Alkaline Phosphatase 46 Total Protein 5.0 L Albumin 3.0 L
[2024-12-25 12:16] LABS: Glucose Point of Care 201 mg/dl (65-105)
[2024-12-25 14:22] LABS: Potassium 4.1 mmol/L (3.4-5.0)
[2024-12-25] MEDS: POTASSIUM/PHOSPHORUS/SODIUM 1.5 GM PACKET 1 PACKET PO (15:25)
[2024-12-25 16:49] LABS: Glucose Point of Care 215 mg/dl (65-105)
[2024-12-25 20:03] LABS: Glucose Point of Care 215 mg/dl (65-105)
[2024-12-25] MEDS: ATORVASTATIN 40 MG TABLET 80 MG FEED TUBE (20:20)
[2024-12-25] MEDS: EZETIMIBE 10 MG TABLET FEED TUBE (20:20)
[2024-12-25] MEDS: LINEZOLID 600 MG TABLET FEED TUBE (20:20)
[2024-12-25 23:25] LABS: Glucose Point of Care 100 mg/dl (65-105)
[2024-12-26] VITALS (14 sets, daily range): BP systolic 116–137; BP diastolic 55–96; PULSE 47–88; RESP 16–20; TEMP 36.2–36.6; O2SAT 94–98
[2024-12-26 03:47] LABS: Hematocrit 27.1 % (37.0-47.0); Hemoglobin 8.2 g/dL (12.0-15.0); Mean Corpuscular HGB Conc 30.3 g/dl (32-36); Mean Corpuscular Hemoglobin 24.8 pg (26-34); Mean Corpuscular Volume 82.1 fl (80-100); Mean Platelet Volume 11.8 fl (7.4-10.4); Platelet Count Result 177 k/mm3 (150-375); Red Cell Distribution Width 15.5 % (11.5-14.5); White Blood Count 6.3 K/mm3 (4.5-10.0)
[2024-12-26] MEDS: PIPERACILLN/TAZ 3.375GM/NS50ML 3.375 GM/50 ML BAG IVPB ×3 (03:48→16:13)
[2024-12-26] MEDS: CENTRAL LINE FLUSH 10 ML IV PUSH ×2 (03:49→16:13)
[2024-12-26 03:57] LABS: Alanine Aminotransferase 13 U/L (6-35); Albumin Level 2.9 g/dL (3.5-5.1); Alkaline Phosphatase 49 U/L (38-126); Anion Gap 3 mmol/L (4-12); Aspartate Amino Transferase 26 U/L (14-36); Bilirubin,Total 0.3 mg/dL (0.2-1.3); Blood Urea Nitrogen 25 mg/dL (7-17); Calcium 8.1 mg/dL (8.4-10.2); Carbon Dioxide 25 mmol/L (22-30); Chloride 118 mmol/L (98-107); Estimated CRCL calculation 64 ml/min; Estimated Glomerular Filt Rate > 60; Glucose 83 mg/dL (65-110); Magnesium 1.8 mg/dL (1.6-2.3); Phosphorus 2.4 mg/dL (2.5-4.5); Sodium 146 mmol/L (137-145)
[2024-12-26] MEDS: VANCOMYCIN ORAL 125 MG/2.5 ML SYRUP FEED TUBE ×2 (05:14→12:11)
[2024-12-26 07:18] LABS: Glucose Point of Care 87 mg/dl (65-105)
--- NOTE | 2024-12-26 11:53 | PCNFU ---
Nutrition Follow-Up Complete: Severe Protein Calorie Malnutrition as related to inadequate protein energy intake as related to significant weight loss of 17 ibs in 3 months, severe subcutaneous fat loss as noted and severe muscle wasting as noted in NFPE. Goal:Meet estimated nutritional needs Pt current nutrition is Jevity 1.5 @ 30ml/hr. Nutrition recommendation: increase tube feeding to goal rate of 50ml/hr to meet estimated needs Last recorded weight is 43.6 kg. Bowel Motility: +BM 12/24 Labs Reviewed: Hgb:8.2, HCT:27.1, NA:146, K:3.0, BUN:25, Cr:0.5 Meds Noted: phos, vit D Skin: Stage III to knee Additional Notes: Nonverbal pt moved from ICU to IMU. Tube feeding running: Jevity 1.5 currently at 30ml/hr, fairly tolerated. Noted RD goal rate is for 50 ml/h to provide 1650 kcal, 70 g protein, 836 ml free water. Spoke with nurse and will advance to 50ml/hr to better meet needs. 225ml flushes q 4 hrs ordered for an additional 1350ml free water. WILIAM BID and banatrol BID supplemented through tube feeding for wounds and c.diff. Agree with orders. Will monitor weight, labs, skin, diet orders, meds every Wednesday and Wednesday.
[2024-12-26] MEDS: ASCORBIC ACID 500 MG TABLET FEED TUBE (12:10)
[2024-12-26] MEDS: CHOLECALCIFEROL 1,000 UNITS TABLET 1000 UNITS FEED TUBE (12:10)
[2024-12-26] MEDS: MIDODRINE HCL 10 MG TABLET FEED TUBE ×3 (12:11→16:14)
[2024-12-26] MEDS: LINEZOLID 600 MG TABLET FEED TUBE (12:11)
[2024-12-26] MEDS: SILVER SULFADIAZINE 1% CR 400 GM JAR (*BKC) 1 APPLIC TOPICAL (12:11)
[2024-12-26 12:12] LABS: Glucose Point of Care 128 mg/dl (65-105)
[2024-12-26] MEDS: POTASSIUM/PHOSPHORUS/SODIUM 1.5 GM PACKET 1 PACKET PO (12:35)
[2024-12-26 15:57] LABS: Glucose Point of Care 158 mg/dl (65-105)
--- NOTE | 2024-12-26 17:33 | PM.DS ---
DS: Admitting Diagnosis Discharge Date 12/26/2024 Admitting Diagnosis Altered Mental Status, electrolyte abnormalities, septic shock, severe dehydration DS: Discharge Diagnosis Discharge Diagnosis (1) Septic shock: Code(s): A41.9 - Sepsis, unspecified organism; R65.21 - Severe sepsis with septic shock Status: Acute (2) Hypernatremia: Code(s): E87.0 - Hyperosmolality and hypernatremia Status: Acute DS: Summary Hospital Course Hospital Course: a 64 year old female patient who is resident of local nursing [facility] and is admitted to the ICU with septic shock on vasopressor support and IV antibiotics. She presented to ER with altered mental status and hypotension. Patient had severe diarrhea on arrival that was greenish/black and hemoccult positive. Past history includes prior CVA with dysphagia and G-tube status, non-verbal at baseline. Patient is full code and no family to contact to discuss changing code status. Patient has chronic cholecystitis with cholecystocutaneous fistula that is found to have purulent drainage. Workup in ER revealed severe hypotension on arrival, profound dehydration status with profound hypernatremia. Labs indicate dehydration, sepsis and electrolyte abnormalities. Blood pressure remained low after 3 liters of IV fluids (about 80 mL/kg) and patient was started on norepinephrine drip through newly placed right subclavian central line. Imagery Analyst consulted and accepted patient. Airway remained patent with good oxygenation. She was managed for Hypernatremia, Hypokalemia and NATALIA which resolved IVF. Tube feeding was resumed. ALso managed for septic shock from Pneumonia and C diff diarrhea. successfully managed in the ICU and transferred to the floor discharged on PO Vanc to completed 10 days total. Discharged on 5 more days of Cefdinir. GI was consulted for Anemia however deferred Intervention. Will continue outpatient follow as Hb is stable. continue PO Ferrous sulfate F/u with PCP in 3-5 days F/u GI as instructed Time Spent with Patient Time attestation: Total time spent providing and/or coordinating discharge services: DS: Data Data Completed and Pending Labs on day of discharge: Labs from last 24 hours 12/26/24 12/26/24 12/26/24 15:48 11:18 07:04 WBC RBC Hgb Hct MCV MCH MCHC RDW Plt Count MPV Sodium Potassium Chloride Carbon Dioxide Anion Gap BUN Creatinine Estim Creat Clear Calc Estimated GFR Glucose POC Capillary Glucose 158 H 128 H 87 Calcium Phosphorus Magnesium Total Bilirubin AST ALT Alkaline Phosphatase Total Protein Albumin 12/26/24 12/25/24 12/25/24 03:33 23:03 19:59 WBC 6.3 RBC 3.30 L Hgb 8.2 L Hct 27.1 L MCV 82.1 MCH 24.8 L MCHC 30.3 L RDW 15.5 H Plt Count 177 MPV 11.8 H Sodium 146 H Potassium 3.0 L Chloride 118 H Carbon Dioxide 25 Anion Gap 3 L BUN 25 H Creatinine 0.50 L Estim Creat Clear Calc 64 Estimated GFR > 60 Glucose 83 POC Capillary Glucose 100 215 H Calcium 8.1 L Phosphorus 2.4 L Magnesium 1.8 Total Bilirubin 0.3 AST 26 ALT 13 Alkaline Phosphatase 49 Total Protein 5.0 L Albumin 2.9 L Preliminary micro results at discharge 12/21/24 04:57 Anaerobic Culture - Preliminary Abdomen Discharge Plan Discharge Attending physician on discharge: Chris Sabillon Consulting providers: Hong Monsivais; Rob Tamayo Discharging Clinician: Chris Sabillon Anticipated Discharge Date/Time: 12/26/24 17:15 Patient Disposition: NH Skilled Nursing/Asst Living Activity: as tolerated Diet: tube feeding Patient Instructions: Antibiotic Form, Sepsis (GEN), Pneumonia (GEN), Hypernatremia (GEN) Patient Language: Somali Stand Alone Forms: General Discharge Information Follow-up/Referrals: Sherrie,Monalisa Snowden MD [Primary Care Provider] - (F/u with PCP in 3-5 day ) Hong Monsivais MD [Physician] - (F/u with Nephrology as instructed ) Walker Adame MD [Physician] - (F/u with GI as instructed ) Discharge Medications: New vancomycin 1,000 mg Recon Soln 125 mg feeding tube Q6HR 5 Days Qty: 20 0RF midodrine 10 mg Tablet 5 mg feeding tube TID 7 Days Qty: 11 0RF cefuroxime axetil 250 mg Tablet 500 mg feeding tube Q12HR 4 Days Qty: 16 0RF Continued aspirin 81 mg tablet,chewable 81 mg feeding tube DAILY atorvastatin 80 mg tablet 80 mg feeding tube HS cholecalciferol (vitamin D3) 25 mcg (1,000 unit) capsule 25 mcg feeding tube DAILY famotidine 20 mg tablet 20 mg feeding tube BID carvedilol 6.25 mg tablet 6.25 mg feeding tube BID magnesium citrate Solution 300 ml feeding tube DAILY PRN (Reason: Constipation) Rx Instructions: give per peg in am as needed for constipation if no results after enema ferrous sulfate 220 mg (44 mg iron)/5 mL Elixir 330 mg feeding tube BID Ventolin HFA 2 puff inhalation PRN PRN (Reason: Wheezing) acetaminophen 650 mg feeding tube Q4H PRN (Reason: Pain (Scale Score 1-3)/fever) ascorbic acid (vitamin C) [Vitamin C] 500 mg tablet 500 mg feeding tube DAILY ondansetron HCl [Zofran] 4 mg Tablet 4 mg feeding tube Q6H PRN (Reason: Nausea And Vomiting) ezetimibe 10 mg tablet 10 mg feeding tube .every bedtime Rx Instructions: 10mg every bedtime lisinopril 5 mg tablet 5 mg feeding tube DAILY silver sulfadiazine 1 % cream 1 applic TOPICAL DAILY Rx Instructions: APPLY TO LOWER ABDOMEN TOPICALLY EVERY DAY FOR WOUND CARE. CLEANSE WITH WC/NS. APPLY SSD COLLAGEN POWDER CALCIUM ALGINATE AND COVER WITH [place] DRESS[employer]. bisacodyl 10 mg suppository 10 mg RECTAL DAILY PRN (Reason: constipation) Rx Instructions: INSERT 1 SUPPOSITORY RECTALLY NEEDED FOR CONSTIPATION DAILY IF NO RESULTS FOR MOM. Fleet Enema 19-7 gram/118 mL enema 118 ml RECTAL DAILY PRN (Reason: constipation) Rx Instructions: INSERT 1 APPLICATION RECTALLY NEEDED FOR CONSTIPATION IF NO RESULTS 1 DAY AFTER SUPPOSITORY. Date of admission: 12/20/24 18:50 Primary Care Provider: Sherrie,Monalisa Snowden Admitting Provider: Donny Frazier Attending physician on admission: Chris Sabillon Condition: Guarded Prognosis
== END 2024-12-26 19:08 | DRG 871 ==
LOC: ANHED 17:44 → ANHICU 20:00 → ANHIMU 12-24 17:23
PROVIDERS: Internal Medicine; Internal Medicine Gastroenterology; Internal Medicine Nephrology; Nurse Practitioner; Admitting Provider General Practice; Emergency Provider Emergency Medicine; PCP Internal Medicine; Visit Provider Internal Medicine
DX: A41.9 Sepsis, unspecified organism (principal); E43 Unspecified severe protein-calorie malnutrition; R65.21 Severe sepsis with septic shock; J18.9 Pneumonia, unspecified organism; J69.0 Pneumonitis due to inhalation of food and vomit; E87.0 Hyperosmolality and hypernatremia; N17.9 Acute kidney failure, unspecified; A04.72 Enterocolitis due to Clostridium difficile, not specified as recurrent; I69.351 Hemiplegia and hemiparesis following cerebral infarction affecting right dominant side; R47.01 Aphasia; K82.3 Fistula of gallbladder; J44.0 Chronic obstructive pulmonary disease with (acute) lower respiratory infection; Z68.1 Body mass index [BMI] 19.9 or less, adult; L02.211 Cutaneous abscess of abdominal wall; E88.A Wasting disease (syndrome) due to underlying condition; K21.00 Gastro-esophageal reflux disease with esophagitis, without bleeding; E86.0 Dehydration; E87.6 Hypokalemia; K81.1 Chronic cholecystitis; I69.391 Dysphagia following cerebral infarction; R13.10 Dysphagia, unspecified; D64.9 Anemia, unspecified; E78.5 Hyperlipidemia, unspecified; Z93.1 Gastrostomy status; Z74.01 Bed confinement status
CPT/HCPCS: 36415; 36556; 70450; 71045; 71260; 74177; 80048; 80053; 80202; 81001; 82550; 82948; 83036; 83540; 83550; 83605; 83735; 84100; 84132; 84145; 85025; 85027; 85055; 85610; 85730; 86850; 86900; 86901; 87040; 87070; 87075; 87205; 87493; 87641; 93005; 96361; 96365; 96366; 99291; A9270; C1751; J0613; J1720; J1815; J1836; J1956; J2405; J2470; J2543; J3370; J3475; J3480; J7030; J7040; J7050; J7060; J7070; J7120; P9047; Q9967

== ENCOUNTER 2025-01-01 08:17 | Emergency (ER) | payer MEDICARE, MEDICAID, SELFPAY ==
--- NOTE | ~2025-01-01 | XR_ITS ---
XR abdomen gastric tube insert 01/01/2025 10:59 Indication: G-tube insertion Procedure: AP supine view of the abdomen Comparison: 11/04/2023 Findings: Contrast was administered via pre-existing gastric catheter. Contrast opacifies the stomach lumen without evidence for extravasation. Impression: 1: Appropriate gastric tube positioning within the stomach. Reviewed, dictated and finalized at location A. Impression: 1: Appropriate gastric tube positioning within the stomach.
[2025-01-01 08:22] VITALS: BP 114/64; PULSE 69; RESP 18; TEMP 36.4; O2SAT 100
[2025-01-01 08:28] VITALS: O2SAT 100
--- OUTSIDE RECORDS SUMMARY | 2025-01-01 09:38 | XMS_ITS | Clinical Summary ---
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 Resumed TF and tolerated. Assessment & Plan (01/27/2021 3:35 PM CDT): -Initially Keep NPO for possible procedure, TF orders placed on hold. 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 Resumed and tolerated. Assessment & Plan (01/26/2021 12:51 PM CDT): -Initially Keep NPO for possible procedure, TF orders placed on hold. 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 -OP regimen is Glucerna 360mL QID with 180mL FWF with each feed. -Resume as tolerated. Assessment & Plan (01/25/2021 11:37 AM CDT): -Keep NPO for possible procedure, TF orders placed on hold. 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 -OP regimen is Glucerna 360mL QID [...] bloody output from drain and transferred to [facility] for further management. -Initial OSH CT [...] bloody output from drain and transferred to [facility] for further management. -Initial OSH CT [...] bloody output from drain and transferred to [facility] for further management. -Initial OSH CT [...] bloody output from drain and transferred to [facility] for further management. -Initial OSH CT [...] bloody output from drain and transferred to [facility] for further management. -Initial OSH CT [...] - 10/20/2024 11:59 PM CDT Hospital Encounter [facility] [address] [place] [address] Discharge Disposition: Discharge to home or self care 10/19/2024 12:50 PM CDT - 10/25/2024 5:00 PM CDT Hospital Encounter [facility] [address] [place] [address] Timi Wilcox MD [place], MD Jesus Tena, [...] 7:45 PM CDT Height 167.6 cm (5' 6) 10/20/2024 7:45 PM CDT Body Mass Index [...] (10/24/2024 9:31 PM CDT) Pathologist [facility] eGFR >90 >=60 mL/min/1. 73 m2 [...] NP LAB BLOOD ORDERABLES Final Resul t [facility] [place] [address] * (ABNORMAL) CBC without differential (10/24/2024 9:31 PM CDT) WBC 7.7 3.8 - 9.9 K/cumm Hgb 9.4(L) 11.9 - 15.5 g/dL [facility] Hct 29.4(L) 35.6 - 45.5 % [facility] Plt 293 150 - 400 K/cumm [facility] MPV 10.3 9.1 - 12.3 fL [facility] RBC 3.68(L) 3.90 - 5.20 M/cumm [facility] MCV 79.9(L) 81.3 - 96.4 fL [facility] MCH 25.5(L) 27.1 - 33.3 pg [facility] MCHC 32.0(L) 32.3 - 35.7 g/dL [facility] RDW CV 13.9 11.1 - 14.9 % [facility] RDW SD 40.4 35.7 - 48.1 fL [facility] NRBC abs 0.00 0.00 - 0.01 K/cumm [facility] Blood 10/24/2024 9:31 PM CDT 10/24/2024 10:59 PM CDT Camille Garcia HR LEADER LAB BLOOD ORDERABLES Final Resul t Performing Organization Address [facility] Co de Phone Number [facility] [place] [address] * (ABNORMAL) Phosphorus (10/24/2024 9:31 PM CDT) Pathologist [facility] Phosphorus, pl 1.7(L) 2.3 - 4.5 mg/dL Blood 10/24/2024 9:31 PM CDT 10/24/2024 10:[address] [facility] LAB BLOOD ORDERABL ES Final Result Performing Organization Address [facility] de Phone Number [facility] Department [place] [address] * Magnesium (10/24/2024 9:31 PM CDT) [facility] Magnesium 1.6 1.4 - 2.5 mg/dL Blood 10/24/2024 9:31 PM CDT 10/24/2024 10:58 PM CDT [facility] BLOOD ORDERABL ES Final Result Performing Organization Address [facility] de Phone Number [facility] [place] [place] [address] * (ABNORMAL) Basic metabolic panel (10/24/2024 9:31 PM CDT) Pathologist [facility] Sodium 148(H) 135 - 145 mmol/L Potassium, pl 4.0 3.3 - 4.9 mmol/L [facility] Chloride 116(H) 97 - 110 mmol/L [facility] CO2 24 22 - 32 mmol/L [facility] Anion gap 8 2 - 15 mmol/L [facility] BUN 8 6 - 25 mg/dL [facility] Creatinine 0.44(L) 0.60 - 1.10 mg/dL [facility] Glucose 153 70 - 199 mg/dL [facility] Comment: Interpretive Data Fasting glucose >/= [...] 2022. Calcium 8.4(L) 8.5 - 10.3 mg/dL [facility] Blood 10/24/2024 9:31 PM CDT 10/24/2024 10:58 PM CDT us Camille Garcia NP LAB BLOOD ORDERABLES Final Resul t [facility] Department [place] [address] * eGFR (10/23/2024 8:14 PM CDT) eGFR [...] ORDERABLES Final Resul t Performing Organization Address City/[facility]/ZIP Co de Phone Number [facility] Department [place] [address] * (ABNORMAL) CBC without differential (10/23/2024 8:14 PM CDT) WBC 6.9 3.8 - 9.9 K/cumm Hgb 9.1(L) 11.9 - 15.5 g/dL [facility] Hct 28.6(L) 35.6 - 45.5 % [facility] Plt 292 150 - 400 K/cumm [facility] MPV 10.3 9.1 - 12.3 fL [facility] RBC 3.56(L) 3.90 - 5.20 M/cumm [facility] MCV 80.3(L) 81.3 - 96.4 fL [facility] MCH 25.6(L) 27.1 - 33.3 pg [facility] MCHC 31.8(L) 32.3 - 35.7 g/dL [facility] RDW CV 13.8 11.1 - 14.9 % [facility] RDW SD 40.4 35.7 - 48.1 fL [facility] NRBC abs 0.00 0.00 - 0.01 K/cumm [facility] Blood 10/23/2024 8:14 PM CDT 10/23/2024 9:01 PM CDT us Camille Garcia NP LAB BLOOD ORDERABLES Final Resul t [facility] Department [place] [address] * (ABNORMAL) Basic metabolic panel (10/23/2024 8:14 PM CDT) Pathologist [facility] Sodium 144 135 - 145 mmol/L Potassium, pl 3.0(L) 3.3 - 4.9 mmol/L [facility] Chloride 108 97 - 110 mmol/L [facility] CO2 27 22 - 32 mmol/L [facility] Anion gap 9 2 - 15 mmol/L [facility] BUN 8 6 - 25 mg/dL [facility] Creatinine 0.44(L) 0.60 - 1.10 mg/dL [facility] Glucose 134 70 - 199 mg/dL [facility] Comment: Interpretive Data Fasting glucose >/= [...] 2022. Calcium 8.6 8.5 - 10.3 mg/dL [facility] Blood 10/23/2024 8:14 PM CDT 10/23/2024 9:00 PM CDT us Camille Garcia HR LEADER LAB BLOOD ORDERABLES Final Resul t [facility] Department [place] [address] * (ABNORMAL) Protime-INR (10/22/2024 8:30 PM CDT) Pathologist [facility] PT 13.8(H) 9.7 - 13.0 sec INR 1.27(H) 0.90 - 1.20 [facility] Comment: Interpretive data Oral anticoagulant therapeutic ranges: Venous thromboembolism prophylaxis or treatment: 2.0-3.0 CARDIOLOGY Standard range: 2.0-3.0 High-intensity range: 2.5-3.5 Refer to indication-specific guidelines for appropriate target ranges for prosthetic heart valve replacement. Current interpretive data was last revised on 2019. Blood 10/22/2024 8:30 PM CDT 10/22/2024 8:58 PM CDT us Camille Garcia HR LEADER LAB BLOOD ORDERABLES Final Resul t Performing Organization Address City/[facility] Co de Phone Number [facility] Department [place] [address] * (ABNORMAL) CBC without differential (10/22/2024 8:30 PM CDT) WBC 7.4 3.8 - 9.9 K/cumm Hgb 9.4(L) 11.9 - 15.5 g/dL [facility] Hct 30.0(L) 35.6 - 45.5 % [facility] Plt 323 150 - 400 K/cumm [facility] MPV 10.4 9.1 - 12.3 fL [facility] RBC 3.66(L) 3.90 - 5.20 M/cumm [facility] MCV 82.0 81.3 - 96.4 fL [facility] MCH 25.7(L) 27.1 - 33.3 pg [facility] MCHC 31.3(L) 32.3 - 35.7 g/dL [facility] RDW CV 13.6 11.1 - 14.9 % [facility] RDW SD 40.9 35.7 - 48.1 fL [facility] NRBC abs 0.00 0.00 - 0.01 K/cumm [facility] Blood 10/22/2024 8:30 PM CDT 10/22/2024 8:50 PM CDT us Camille Garcia NP LAB BLOOD ORDERABLES Final Resul t [facility] Department [place] [address] * US RUQ (10/22/2024 9:40 AM CDT) [...] 10/22/2024 9:22 AM CDT us Camille Garcia HR LEADER LAB BLOOD ORDERABLES Final Resul t Performing Organization Address [facility] Co de Phone Number [facility] Department [place] [address] * (ABNORMAL) CBC without differential (10/22/2024 9:00 AM CDT) WBC 4.7 3.8 - 9.9 K/cumm Hgb 9.4(L) 11.9 - 15.5 g/dL [facility] Hct 29.0(L) 35.6 - 45.5 % [facility] Plt 302 150 - 400 K/cumm [facility] MPV 10.3 9.1 - 12.3 fL [facility] RBC 3.64(L) 3.90 - 5.20 M/cumm [facility] MCV 79.7(L) 81.3 - 96.4 fL [facility] MCH 25.8(L) 27.1 - 33.3 pg [facility] MCHC 32.4 32.3 - 35.7 g/dL [facility] RDW CV 13.6 11.1 - 14.9 % [facility] RDW SD 39.3 35.7 - 48.1 fL [facility] NRBC abs 0.00 0.00 - 0.01 K/cumm [facility] Blood 10/22/2024 9:00 AM CDT 10/22/2024 9:22 AM CDT us Camille Garcia HR LEADER LAB BLOOD ORDERABLES Final Resul t Performing Organization Address City/[facility]/ZIP Co de Phone Number [facility] Department [place] [address] * Phosphorus (10/22/2024 9:00 AM CDT) Pathologist [facility] Phosphorus, pl 2.9 2.3 - 4.5 mg/dL Blood 10/22/2024 9:00 AM CDT 10/22/2024 9:22 AM CDT us Camille Garcia HR LEADER LAB BLOOD ORDERABLES Final Resul t Performing Organization Address City/[facility] Co de Phone Number [facility] [place] [address] * Magnesium (10/22/2024 9:00 AM CDT) Pathologist [facility] Magnesium 1.8 1.4 - 2.5 mg/dL Blood 10/22/2024 9:00 AM CDT 10/22/2024 9:22 AM CDT us Camille Garcia NP LAB BLOOD ORDERABLES Final Resul t Performing Organization Address [facility] Phone Number [facility] [place] [address] * (ABNORMAL) Basic metabolic panel (10/22/2024 9:00 AM CDT) Pathologist [facility] Sodium 144 135 - 145 mmol/L Potassium, pl 3.6 3.3 - 4.9 mmol/L [facility] Chloride 109 97 - 110 mmol/L [facility] CO2 22 22 - 32 mmol/L [facility] Anion gap 13 2 - 15 mmol/L [facility] BUN 15 6 - 25 mg/dL [facility] Creatinine 0.44(L) 0.60 - 1.10 mg/dL [facility] Glucose 80 70 - 199 mg/dL [facility] Comment: Interpretive Data Fasting glucose >/= [...] 2022. Calcium 8.7 8.5 - 10.3 mg/dL [facility] Blood 10/22/2024 9:00 AM CDT 10/22/2024 9:22 AM CDT us Camille Garcia NP LAB BLOOD ORDERABLES Final Resul t [facility] [place] [address] * Blood culture Blood Blood (10/20/2024 11:30 PM CDT) Report Final Report: No growth Blood (Blood) 10/20/2024 11: 30 PM CDT 10/21/2024 3:14 AM CDT Narrative [facility] - 10/25/2024 7:00 AM CDT Collection->Peripheral [...] performance characteristics have been verified by the [facility]. For questions about this culture, contact the Microbiology Laboratory at [phone]. Interpretive data was last revised on 24. us Lyndsay Solares MD LAB MICROBIOLOGY - GENERAL O RDERABLES Final Result Performing Organization Address City/[facility]/ZIP Co de Phone Number [facility] Department [place] [address] * Blood culture Blood Blood (10/20/2024 11:19 [...] performance characteristics have been verified by the [facility]. For questions about this culture, contact the Microbiology Laboratory at [phone]. Interpretive data was last revised on 24. Lyndsay Solares MD LAB MICROBIOLOGY - GENERAL O RDERABLES Final Result Performing Organization Address City/[facility]/ZIP Co de Phone Number JAVI VILLANUEVA [facility] [place] [address] * FL Upper GI Series, Single Contrast [...] recent CT dated 10/19/2024. TECHNIQUE: After a organ pipe maker metal radiograph was obtained, the patient's existing percutaneous [...] recent CT dated 10/19/2024. TECHNIQUE: After a organ pipe maker metal radiograph was obtained, the patient's existing percutaneous [...] MD LAB BLOOD ORDERABLES Emily majano Result [facility] [place] [address] * Differential, auto (10/20/2024 4:07 AM CDT) Pathologist [facility] Neutrophil abs 3.7 1.5 - 6.5 K/cumm Imm gran abs 0.0 0.0 - 0.1 K/cumm [facility] Lymphocyte abs 1.5 0.8 - 3.3 K/cumm [facility] Monocyte abs 0.5 0.2 - 0.8 K/cumm [facility] Eosinophil abs 0.2 0.0 - 0.5 K/cumm [facility] Basophil abs 0.0 0.0 - 0.1 K/cumm [facility] Neutrophil pct 62.3 % [facility] Comment: Interpretive Data Percent cell count reference ranges are not reported, since discordance with absolute values may lead to misinterpretation of CBC data. Current Interpretive Data was last revised on 2017. Imm gran pct 0.3 % [facility] Comment: Interpretive Data Percent cell count reference ranges are not reported, since discordance with absolute values may lead to misinterpretation of CBC data. Current Interpretive Data was last revised on 2017. Lymphocyte pct 26.0 % [facility] Comment: Interpretive Data Percent cell count reference ranges are not reported, since discordance with absolute values may lead to misinterpretation of CBC data. Current Interpretive Data was last revised on 2017. Monocyte pct 8.0 % [facility] Comment: Interpretive Data Percent cell count reference ranges are not reported, since discordance with absolute values may lead to misinterpretation of CBC data. Current Interpretive Data was last revised on 2017. Eosinophil pct 2.9 % [facility] Comment: Interpretive Data Percent cell count reference ranges are not reported, since discordance with absolute values may lead to misinterpretation of CBC data. Current Interpretive Data was last revised on 2017. Basophil pct 0.5 % [facility] Comment: Interpretive Data Percent cell count reference ranges are not reported, since discordance with absolute values may lead to misinterpretation of CBC data. Current Interpretive Data was last revised on 2017. Blood 10/20/2024 4:07 AM CDT 10/20/2024 4:21 AM CDT us Alcides Blair MD LAB BLOOD ORDERABLES Emily majano Result Performing Organization Address City/State/[facility] Co de Phone Number [facility] [place] [address] * (ABNORMAL) CBC with auto differential (10/20/2024 4:07 AM CDT) WBC 5.9 3.8 - 9.9 K/cumm Hgb 10.9(L) 11.9 - 15.5 g/dL [facility] Hct 34.4(L) 35.6 - 45.5 % [facility] Plt 337 150 - 400 K/cumm [facility] MPV 10.3 9.1 - 12.3 fL [facility] RBC 4.30 3.90 - 5.20 M/cumm [facility] MCV 80.0(L) 81.3 - 96.4 fL [facility] MCH 25.3(L) 27.1 - 33.3 pg [facility] MCHC 31.7(L) 32.3 - 35.7 g/dL [facility] RDW CV 13.9 11.1 - 14.9 % [facility] RDW SD 39.8 35.7 - 48.1 fL [facility] NRBC abs 0.00 0.00 - 0.01 K/cumm [facility] Blood 10/20/2024 4:07 AM CDT 10/20/2024 4:21 AM CDT Alcides Blair MD LAB BLOOD ORDERABLES Emily l Result Performing Organization Address [facility] Co de Phone Number [facility] [place] [address] * (ABNORMAL) Erythrocyte sedimentation rate (10/20/2024 4:07 AM CDT) Erythrocyte sedimentation rate 58(H) 1 - 30 mm/hr Blood 10/20/2024 4:07 AM CDT 10/20/2024 4:20 AM CDT Alcides Blair MD LAB BLOOD ORDERABLES Emily l Result Performing Organization Address City/[facility] Co de Phone Number [facility] [place] [address] * Protime-INR (10/20/2024 4:07 AM CDT) PT 12.5 9.7 - 13.0 sec INR 1.15 0.90 - 1.20 [facility] Comment: Interpretive data Oral anticoagulant therapeutic ranges: Venous thromboembolism prophylaxis or treatment: 2.0-3.0 CARDIOLOGY Standard range: 2.0-3.0 High-intensity range: 2.5-3.5 Refer to indication-specific guidelines for appropriate target ranges for prosthetic heart valve replacement. Current interpretive data was last revised on 2019. Blood 10/20/2024 4:07 AM CDT 10/20/2024 4:28 AM CDT Alcides Blair MD LAB BLOOD ORDERABLES Emily l Result Performing Organization Address City/[facility]/ZIP Co de Phone Number [facility] [place] [address] * (ABNORMAL) CRP (acute phase) (10/20/2024 4:07 AM CDT) CRP 47.0(H) <=10.0 mg/L Blood 10/20/2024 4:07 AM CDT 10/20/2024 4:20 AM CDT Alcides Blair MD LAB BLOOD ORDERABLES Emily l Result Performing Organization Address City/[facility] Co de Phone Number [facility] [place] [address] * Phosphorus (10/20/2024 4:07 AM CDT) Phosphorus, pl 4.3 2.3 - 4.5 mg/dL Blood 10/20/2024 4:07 AM CDT 10/20/2024 4:21 AM CDT Alcides Blair MD LAB BLOOD ORDERABLES Emily l Result Performing Organization Address City/[facility] Co de Phone Number [facility] [place] [address] * Magnesium (10/20/2024 4:07 AM CDT) Magnesium 1.9 1.4 - 2.5 mg/dL Blood 10/20/2024 4:0 7 AM CDT 10/20/2024 4:21 AM CDT Alcides Blair MD LAB BLOOD ORDERABLES Emily majano Result Performing Organization Address City/[facility]/ZIP Co de Phone Number [facility] Department [place] [address] * (ABNORMAL) Basic metabolic panel (10/20/2024 4:07 AM CDT) Pathologist [facility] Sodium 141 135 - 145 mmol/L Potassium, pl 3.9 3.3 - 4.9 mmol/L [facility] Chloride 104 97 - 110 mmol/L [facility] CO2 26 22 - 32 mmol/L [facility] Anion gap 11 2 - 15 mmol/L [facility] BUN 13 6 - 25 mg/dL [facility] Creatinine 0.48(L) 0.60 - 1.10 mg/dL [facility] Glucose 87 70 - 199 mg/dL [facility] Comment: Interpretive Data Fasting glucose >/= [...] 2022. Calcium 9.4 8.5 - 10.3 mg/dL [facility] Blood 10/20/2024 4:07 AM CDT 10/20/2024 4:21 AM CDT Alcides Blair MD LAB BLOOD ORDERABLES Emily l Result Performing Organization Address [facility] Co de Phone Number [facility] [place] [address] * CT Abdomen Pelvis W Contrast (10/19/2024 [...] DEV ICE Final Result Performing Organization Address [facility] Co de Phone Number [facility] [place] [address] * POCT lactate (10/19/2024 2:14 PM CDT) Lactate POC i-STAT 1.8 0.7 - 2.0 mmol/L Blood 10/19/2024 2:14 PM CDT 10/19/2024 2:14 PM CDT Timi Wilcox MD LAB POCT ORDERABLES - DEV ICE Final Result Performing Organization Address [facility] Co de Phone Number [facility] Department [place] [address] * eGFR (10/19/2024 2:07 PM CDT) eGFR [...] Hou MD LAB BLOOD ORDERABLES Final Result [facility] [place] [address] * Differential, auto (10/19/2024 2:07 PM CDT) Pathologist [facility] Neutrophil abs 3.3 1.5 - 6.5 K/cumm Imm gran abs 0.0 0.0 - 0.1 K/cumm [facility] Lymphocyte abs 2.3 0.8 - 3.3 K/cumm [facility] Monocyte abs 0.8 0.2 - 0.8 K/cumm [facility] Eosinophil abs 0.2 0.0 - 0.5 K/cumm [facility] Basophil abs 0.0 0.0 - 0.1 K/cumm [facility] Neutrophil pct 49.9 % [facility] Comment: Interpretive Data Percent cell count reference ranges are not reported, since discordance with absolute values may lead to misinterpretation of CBC data. Current Interpretive Data was last revised on 2017. Imm gran pct 0.3 % [facility] Comment: Interpretive Data Percent cell count reference ranges are not reported, since discordance with absolute values may lead to misinterpretation of CBC data. Current Interpretive Data was last revised on 2017. Lymphocyte pct 34.6 % [facility] Comment: Interpretive Data Percent cell count reference ranges are not reported, since discordance with absolute values may lead to misinterpretation of CBC data. Current Interpretive Data was last revised on 2017. Monocyte pct 12.1 % [facility] Comment: Interpretive Data Percent cell count reference ranges are not reported, since discordance with absolute values may lead to misinterpretation of CBC data. Current Interpretive Data was last revised on 2017. Eosinophil pct 2.7 % [facility] Comment: Interpretive Data Percent cell count reference ranges are not reported, since discordance with absolute values may lead to misinterpretation of CBC data. Current Interpretive Data was last revised on 2017. Basophil pct 0.4 % [facility] Comment: Interpretive Data Percent cell count reference ranges are not reported, since discordance with absolute values may lead to misinterpretation of CBC data. Current Interpretive Data was last revised on 2017. Blood 10/19/2024 2:07 PM CDT 10/19/2024 2:22 PM CDT Giuliana Hou MD LAB BLOOD ORDERABLES Final Result [facility] [place] [address] * (ABNORMAL) CBC with auto differential (10/19/2024 2:07 PM CDT) WBC 6.7 3.8 - 9.9 K/cumm Hgb 10.4(L) 11.9 - 15.5 g/dL [facility] Hct 32.0(L) 35.6 - 45.5 % [facility] Plt 334 150 - 400 K/cumm [facility] MPV 11.0 9.1 - 12.3 fL [facility] RBC 4.00 3.90 - 5.20 M/cumm [facility] MCV 80.0(L) 81.3 - 96.4 fL [facility] MCH 26.0(L) 27.1 - 33.3 pg [facility] MCHC 32.5 32.3 - 35.7 g/dL [facility] RDW CV 14.1 11.1 - 14.9 % [facility] RDW SD 41.1 35.7 - 48.1 fL [facility] NRBC abs 0.00 0.00 - 0.01 K/cumm [facility] Blood 10/19/2024 2:07 PM CDT 10/19/2024 2:22 PM CDT [facility] MD LAB BLOOD ORDERABLES Final Result Performing Organization Address City/[facility]/ZIP Co de Phone Number [facility] [place] [address] * Lipase (10/19/2024 2:07 PM CDT) [facility] Lipase 26 10 - 99 Units/L Blood 10/19/2024 2:07 PM CDT 10/19/2024 2:22 PM CDT [facility] G[facility] H[facility] MD LAB BLOOD ORDERABLES Final Result [facility] [place] [address] * (ABNORMAL) Comprehensive metabolic panel (10/19/2024 2:07 PM CDT) [facility] Sodium 136 135 - 145 mmol/L Potassium, pl 4.3 3.3 - 4.9 mmol/L [facility] Chloride 99 97 - 110 mmol/L [facility] CO2 27 22 - 32 mmol/L [facility] Anion gap 10 2 - 15 mmol/L [facility] BUN 12 6 - 25 mg/dL [facility] Creatinine 0.53(L) 0.60 - 1.10 mg/dL [facility] Glucose 76 70 - 199 mg/dL [facility] Comment: Interpretive Data Fasting glucose >/= [...] 2022. Calcium 9.4 8.5 - 10.3 mg/dL [facility] Bilirubin, total 0.3 0.1 - 1.2 mg/dL [facility] Protein, pl 7.5 6.5 - 8.5 g/dL [facility] Albumin 3.6 3.5 - 5.0 g/dL [facility] Alk phos 109 40 - 130 Units/L [facility] ALT 9 7 - 45 Units/L [facility] AST 23 10 - 45 Units/L [facility] Blood 10/19/2024 2:07 PM CDT 10/19/2024 2:22 PM CDT [facility] Gaurav Hou MD LAB BLOOD ORDERABLES Final Result [facility] Department [place] [address] from Last 3 Months Insurance [employer] HMO [employer] H[employer] Advance Directives For more information, please contact: [phone] * Full Code (Latest Code Status on File) Date Activated Date Inactivated Comments 10/20/2024 3:06 AM 10/25/2024 10:26 PM * Full Code Date Activated Date Inactivated Comments 01/24/2021 9:08 PM 01/29/2021 5:17 PM Care Teams Dye Worker Relationship Specialty Start Date End Date Unknown, Notinfile PCP - General 01/24/21
--- OUTSIDE RECORDS SUMMARY | 2025-01-01 09:38 | XMS_ITS | Referral Summary ---
Author Organization [facility] Address [address] [place] [id number] Care Team Providers Care Registered Dental Hygienist Name Role Phone Unknown, Notinfile Primary Care Provider Unavail able Encounters Date Type Department Care Team Description 10/19/2024 12:50 PM CDT - 10/25/2024 5:00 PM CDT Hospital Encounter [address] [id number] Timi Wilcox MD [place], MD Jesus Tena, Abebe Aranda MD PhD [place], MD Beck Rdz Sarakshi, MD Flores-Ruiz, Jaime E., MD Richard, Ana Paula Vilchis MD PhD Gastrostomy tube dysfunction (HCC) (Primary Dx) Discharge Disposition: Discharge to SNF 10/20/2024 2:14 PM CDT - 10/20/2024 11:59 PM CDT Hospital Encounter [facility] Radiology [address] [place] [id number] Discharge Disposition: Discharge to home or self [...] -Initially kept NPO for possible procedure. S/b medical assembly. OP regimen is Glucerna 360mL QID with 180mL FWF with each feed. Resumed TF and tolerated. Assessment & Plan (01/27/2021 3:35 PM CDT): -Initially Keep NPO for possible procedure, TF orders placed on hold. S/b medical assembly. OP regimen is Glucerna 360mL QID with 180mL FWF with each feed. Resumed and tolerated. Assessment & Plan (01/26/2021 12:51 PM CDT): -Initially Keep NPO for possible procedure, TF orders placed on hold. S/b medical assembly. -OP regimen is Glucerna 360mL QID with 180mL FWF with each feed. -Resume as tolerated. Assessment & Plan (01/25/2021 11:37 AM CDT): -Keep NPO for possible procedure, TF orders placed on hold. S/b medical assembly. -OP regimen is Glucerna 360mL QID with [...] bloody output from drain and transferred to [facility] for further management. -Initial OSH CT uploaded to [facility] as reference image -Repeat CT A/P with [...] bloody output from drain and transferred to [facility] for further management. -Initial OSH CT [...] bloody output from drain and transferred to [facility] for further management. -Initial OSH CT [...] bloody output from drain and transferred to [facility] for further management. -Initial OSH CT [...] bloody output from drain and transferred to [facility] for further management. -Initial OSH CT [...] ORDERABLES Final Resul t [facility] [place] [address] * (ABNORMAL) CBC without differential (10/24/2024 9:31 PM CDT) Pathologist [facility] WBC 7.7 3.8 - 9.9 K/cumm Hgb [...] 0.00 - 0.01 K/cumm [facility] Blood 10/24/2024 9:31 PM CDT 10/24/2024 10:59 PM CDT us Camille Garcia RN EMERGENCY ROOM LAB BLOOD ORDERABLES Final Resul t [facility] [place] [address] * (ABNORMAL) Phosphorus (10/24/2024 9:31 PM CDT) Pathologist [facility] Phosphorus, pl 1.7(L) 2.3 - 4.5 mg/dL Blood 10/24/2024 9:31 PM CDT 10/24/2024 10:58 PM CDT us Sangita Olmos DNP LAB BLOOD ORDERABL ES Final Result [facility] [place] [address] * Magnesium (10/24/2024 9:31 PM CDT) Pathologist [facility] Magnesium 1.6 1.4 - 2.5 mg/dL Blood 10/24/2024 9:31 PM CDT 10/24/2024 10:58 PM CDT Sangita Herman Megsandhya DNP LAB BLOOD ORDERABL ES Final Result [facility] Department [place] [address] * (ABNORMAL) Basic metabolic panel (10/24/2024 9:31 PM CDT) Pathologist [facility] Sodium 148(H) 135 - 145 mmol/L Potassium, [...] CDT 10/24/2024 10:58 PM CDT Camille Garcia RN EMERGENCY ROOM LAB BLOOD ORDERABLES Final Resul t Performing Organization Address [facility] Co de Phone Number [facility] Department [place] [address] * eGFR (10/23/2024 8:14 PM CDT) eGFR [...] ORDERABLES Final Resul t Performing Organization Address City/[facility]/ZIP Co de Phone Number [facility] Department [place] [address] * (ABNORMAL) CBC without differential (10/23/2024 8:14 PM CDT) Pathologist [facility] WBC 6.9 3.8 - 9.9 K/cumm Hgb [...] 10/23/2024 9:01 PM CDT us Camille Garcia RN EMERGENCY ROOM LAB BLOOD ORDERABLES Final Resul t [facility] Department [place] [address] * (ABNORMAL) Basic metabolic panel (10/23/2024 8:14 [...] ORDERABLES Final Resul t Performing Organization Address [facility] de Phone Number [facility] [place] [address] * (ABNORMAL) Protime-INR (10/22/2024 8:30 PM CDT) [...] ORDERABLES Final Resul t Performing Organization Address [facility] Co de Phone Number [facility] [place] [place] [address] * (ABNORMAL) CBC without differential (10/22/2024 8:30 [...] ORDERABLES Final Resul t [facility] [place] [address] * US RUQ (10/22/2024 9:40 AM CDT) [...] lt * eGFR (10/22/2024 9:00 AM CDT) [facility] eGFR >90 >=60 mL/min/1. 73 m2 Comment: [...] ORDERABLES Final Resul t [facility] Department of Laboratories [place], [place] [id number] * (ABNORMAL) CBC without differential (10/22/2024 9:00 AM CDT) [facility] WBC 4.7 3.8 - 9.9 K/cumm Hgb [...] ORDERABLES Final Resul t Performing Organization Address City/[facility] Co de Phone Number [facility] Department [place] [address] * Phosphorus (10/22/2024 9:00 AM CDT) Phosphorus, pl 2.9 2.3 - 4.5 mg/dL Blood 10/22/2024 9:00 AM CDT 10/22/2024 9:22 AM CDT us Camille Garcia RN EMERGENCY ROOM LAB BLOOD ORDERABLES Final Resul t Performing Organization Address [facility] Co de Phone Number [facility] Department [place] [address] * Magnesium (10/22/2024 9:00 AM CDT) Magnesium 1.8 1.4 - 2.5 mg/dL Blood 10/22/2024 9:00 AM CDT 10/22/2024 9:22 AM CDT us Camille Garcia RN EMERGENCY ROOM LAB BLOOD ORDERABLES Final Resul t Performing Organization Address City/[facility] Co de Phone Number [facility] Department [place] [address] * (ABNORMAL) Basic metabolic panel (10/22/2024 9:00 [...] 10/22/2024 9:22 AM CDT us Camille Garcia RN EMERGENCY ROOM LAB BLOOD ORDERABLES Final Resul t [facility] [place] [address] * Blood culture Blood Blood (10/20/2024 11:30 [...] performance characteristics have been verified by the [facility] Microbiology Laboratory. For questions about this culture, contact the Microbiology Laboratory at [phone]. Interpretive data was last revised on 24. Lyndsay Solares MD LAB MICROBIOLOGY - GENERAL O RDERABLES Final Result [facility] [place] [address] * Blood culture Blood Blood (10/20/2024 11:19 PM CDT) Report Final Report: No growth Blood (Blood) 10/20/2024 11: 19 PM CDT 10/21/2024 3:14 AM CDT Maribell JAVI [facility] - 10/25/2024 7:00 AM CDT Collection->Peripheral [...] performance characteristics have been verified by the [facility] Microbiology Laboratory. For questions about this culture, contact the Microbiology Laboratory at [phone]. Interpretive data was last revised on 24. us Lyndsay Solares MD LAB MICROBIOLOGY - GENERAL O RDERABLES Final Result [facility] [place] [address] * FL Upper GI Series, Single Contrast [...] recent CT dated 10/19/2024. TECHNIQUE: After a dining car waiter/waitress radiograph was obtained, the patient's existing percutaneous [...] recent CT dated 10/19/2024. TECHNIQUE: After a dining car waiter/waitress radiograph was obtained, the patient's existing percutaneous [...] ORDERABLES Emily majano Result [facility] [place] [address] * Differential, auto (10/20/2024 4:07 AM CDT) Neutrophil abs 3.7 1.5 - 6.5 K/cumm Imm gran abs 0.0 0.0 - 0.1 K/cumm [facility] Lymphocyte abs 1.5 0.8 - 3.3 K/cumm [facility] Monocyte abs 0.5 0.2 - 0.8 [...] revised on 2017. Basophil pct 0.5 % [facility] Comment: Interpretive Data Percent cell count reference ranges are not reported, since discordance with absolute values may lead to misinterpretation of CBC data. Current Interpretive Data was last revised on 2017. Blood 10/20/2024 4:07 AM CDT 10/20/2024 4:21 AM CDT Alcides Blair MD LAB BLOOD ORDERABLES Emily l Result Performing Organization Address City/[facility]/ZIP Co de Phone Number [facility] Department [place] [address] * (ABNORMAL) CBC with auto differential (10/20/2024 [...] ORDERABLES Emily l Result Performing Organization Address City/[facility]/ZIP Co de Phone Number [facility] [place] [address] * (ABNORMAL) Erythrocyte sedimentation rate (10/20/2024 4:07 AM CDT) Erythrocyte sedimentation rate 58(H) 1 - 30 mm/hr Blood 10/20/2024 4:07 AM CDT 10/20/2024 4:20 AM CDT Alcides Blair MD LAB BLOOD ORDERABLES Emily l Result Performing Organization Address [facility] de Phone Number [facility] [place] [address] * Protime-INR (10/20/2024 4:07 AM CDT) Pathologist [facility] PT 12.5 9.7 - 13.0 sec INR [...] ORDERABLES Emily l Result Performing Organization Address [facility] de Phone Number [facility] [place] [address] * (ABNORMAL) CRP (acute phase) (10/20/2024 4:07 AM CDT) Pathologist [facility] CRP 47.0(H) <=10.0 mg/L Blood 10/20/2024 4:07 AM CDT 10/20/2024 4:20 AM CDT Result [facility] Alcides Blair MD LAB BLOOD ORDERABLES Emily l Result [facility] [place] [address] * Phosphorus (10/20/2024 4:07 AM CDT) [facility] Phosphorus, pl 4.3 2.3 - 4.5 mg/dL Blood 10/20/2024 4:07 AM CDT 10/20/2024 4:21 AM CDT Alcides Blair MD LAB BLOOD ORDERABLES Emily l Result Performing Organization Address [facility] Co de Phone Number [facility] [place] [address] * Magnesium (10/20/2024 4:07 AM CDT) [facility] Magnesium 1.9 1.4 - 2.5 mg/dL Blood 10/20/2024 4:07 AM CDT 10/20/2024 4:21 AM CDT Alcides Blair MD LAB BLOOD ORDERABLES Emily l Result Performing Organization Address [facility] Co de Phone Number [facility] [place] [address] * (ABNORMAL) Basic metabolic panel (10/20/2024 4:07 AM CDT) [facility] Sodium 141 135 - 145 mmol/L Potassium, [...] MD LAB BLOOD ORDERABLES Emily l Result [facility] [place] [address] * CT Abdomen Pelvis W Contrast (10/19/2024 [...] DEV ICE Final Result Performing Organization Address City/[facility]/ZIP Co de Phone Number [facility] [place] [address] * POCT lactate (10/19/2024 2:14 PM CDT) Lactate POC i-STAT 1.8 0.7 - 2.0 mmol/L Blood 10/19/2024 2:14 PM CDT 10/19/2024 2:14 PM CDT us Timi Wilcox MD LAB POCT ORDERABLES - DEV ICE Final Result Performing Organization Address City/[facility] Co de Phone Number [facility] [place] [address] * eGFR (10/19/2024 2:07 PM CDT) Pathologist [facility] eGFR >90 >=60 mL/min/1. 73 m2 Comment: [...] BLOOD ORDERABLES Final Result [facility] Department [place] [address] * Differential, auto (10/19/2024 2:07 PM CDT) [...] BLOOD ORDERABLES Final Result [facility] [place] [address] * (ABNORMAL) CBC with auto differential (10/19/2024 [...] BLOOD ORDERABLES Final Result [facility] [place] [address] * Lipase (10/19/2024 2:07 PM CDT) Lipase 26 10 - 99 Units/L Blood 10/19/2024 2:07 PM CDT 10/19/2024 2:22 PM CDT [facility] MD LAB BLOOD ORDERABLES Final Result Performing Organization Address [facility] Co de Phone Number [facility] [place] [address] * (ABNORMAL) Comprehensive metabolic panel (10/19/2024 2:07 PM CDT) [facility] Sodium 136 135 - 145 mmol/L [...] Albumin 3.6 3.5 - 5.0 g/dL [facility] Alk phos 109 40 - 130 Units/L [facility] ALT 9 7 - 45 Units/L [facility] AST 23 10 - 45 Units/L [facility] Blood 10/19/2024 2:07 PM CDT 10/19/2024 2:22 PM CDT Giuliana Hou MD LAB BLOOD ORDERABLES Final Result [facility] [place] [address] from Last 3 Months Insurance [employer] HMO [facility] MEDICARE O Advance Directives For more information, please contact: [phone] * Full Code (Latest Code Status on File) Date Activated Date Inactivated Comments 10/20/2024 3:06 AM 10/25/2024 10:26 PM * Full Code Date Activated Date Inactivated Comments 01/24/2021 9:08 PM 01/29/2021 5:17 PM Care Teams Registered Dental Hygienist Relationship Specialty Start Date End Date Unknown, Notinfile PCP - General 01/24/21
--- OUTSIDE RECORDS SUMMARY | 2025-01-01 09:39 | XMS_ITS | Data Portability ---
Author Organization [facility] SERVICESJuan ManuelPort Angeles East H Address [address] [place] [address] Care Team Providers Care Machine Repairer Name Role Phone ZION MONTEJO Primary Care Provider Unavailab le Assessment No assessment recorded. Plan of Treatment Reminders Order Date Submit Date Provider Last Modified By Organization Details Last Modified Time Details Appointments None recorded . Lab None recorded . Referral audiolog ist referral - Please eval and treat . Thank you ... 2020 021 ace [facility], [address], [facility] [address], [address], 08:38:55 Procedures None recorded . Surgeries None recorded . Imaging None recorded . Medication Orders clonazep am 0.5 mg tablet 2020 [address] [place] [address] [facility] #[id number], [address], [place], [id number], 14:01:56 hydrocod one 7.5 mg-aceta minophen 325 mg tablet 2020 021 [place] [address] [facility] #58662, [address], [place], [id number], 16:01:06 clonazep am 0.5 mg tablet 2020 021 [address] [facility] [facility], [address], [place], [id number], 02/04/202 1 16:01:06 predniso ne 20 mg tablet 2020 [facility] #77848, [address], [place], [id number], 1 15:58:03 prometha zine-DM 6.25 mg-15 mg/5 mL oral syrup 2020 [facility], [address] [place] [address], [id number], 1 15:57:01 hydrocod one 7.5 mg-aceta minophen 325 mg tablet [address] [facility] #40051, [address], [place], [id number], 0 13:31:03 Pennsaid 20 mg/gram/ actuatio n (2 %) topical soln in metered- dose pump 2019 [facility], [address] [place] [address], [id number], 0 13:32:59 amoxicil matt 875 mg-potas sium clavulan ate 125 mg tablet 2019 020 [facility] #50848, [address], [place], [id number], 1 12:35:13 clonazep am 0.5 mg tablet [address] [facility] #51910, [address], [place], [id number], 0 13:31:03 hydrocod one 7.5 mg-aceta minophen 325 mg tablet [address] [facility] #96911, [address], [place], [id number], 0 10:50:13 hydrocod one 7.5 mg-aceta minophen 325 mg tablet [address] [facility], [address], [place], [id number], 0 16:03:43 clonazep am 1 mg tablet [email or web address] [facility] #24671, [address], [place], [id number], 1 16:02:39 Patient TargetsNo targets recorded. Patient Instructions Encounter Date Encounter Id Patient Instructions Last Modified By Organization Details Last Modified Time 09/05/2020 [id number] she has antibiotics ...already [email or web address] Not available 09/05/2020 16:08:54 10/08/2020 [id number] counseled ; no si/hi ... coping [email or web address] Not available 10/09/2020 17:50:53 Reason for Referral Medical Records Custodian Referral for Hea ring loss Please eval and treat . Thank you ... Referring Physician: Zion Montejo, Family Medicine, Encounter Date: 09/05/2020 Problems Name Problem SNOMED Code Status Onset Date Resolution Date Notes Provider Name and Address Organization Details Recorded Time Acute bronchitis 47094156 Active 2017 Zion Montejo PA-C Attn: Nanette davis,[address] [place], [address], [facility] 8 16:13:33 Hearing loss 34006577 Active 2017 Zion Montejo PA-C Attn: Nanette davis,[address] [place], [address], [facility] 8 16:16:40 Family history of diabetes mellitus with complicati on 108099371 Active 2017 Zion Montejo PA-C Attn: Nanette davis,[address] [place], [address], [place] [facility] 8 12:08:31 Screening for disorder Active 2017 Zion Montejo PA-C Attn: Nanette g,[address] [facility], [place], [address], [place] [facility] 8 12:09:27 Screening for malignant neoplasm of colon Active 2017 Zion Montejo PA-C Attn: Accountsheeba g,[address] [facility], [place], [address], [place] [facility] 8 12:13:29 Tendinitis of left wrist region 2750230637010 9100 Active 2018 Zion Montejo PA-C Attn: Accountsheeba g,[address] [facility], [place], [address], [place] [facility] 9 14:32:55 Pain of left ankle joint 8107907374837 9103 Active 2018 she has 2 screws in there Zion Montejo PA-C Attn: Accountsheeba g,[address] [facility], [place], [address], [place] [facility] 9 14:36:08 Administra tion of influenza vaccine Active 2018 Zion Montejo PA-C Attn: Accountsheeba g,[address] [facility], [place], [address], [place] [facility] 9 13:25:32 Cramp in lower limb 062583991 Active 2018 Zion Montejo PA-C Attn: Accountin g,[address] [facility], [place], [address], [place] [facility] 9 13:29:06 Acute sinusitis 94026114 Active Zion Montejo PA-C Attn: Accountin g,[address] [facility], [place], [address], [place] [facility] 6 16:59:06 Hypertensi ve disorder 59293116 Active Zion Montejo PA-C Attn: Accountin g,[address] [facility], [place], [address], [place] [facility] 6 11:55:07 Gastroesop hageal reflux disease 357538202 Active Zion Montejo PA-C Attn: Accountin g,[address] [facility], [place], [address], [place] [facility] 6 11:55:07 Ankle pain 754215998 Active Zion Montejo PA-C Attn: Accountin g,[address] [facility], [place], [address], [place] [facility] 4 14:48:04 Chronic obstructiv e pulmonary disease 38655326 Active Zion Montejo PA-C Attn: Accountin g,[address] [facility], [place], [address], [place] [facility] 6 11:55:07 Chest pain 66829130 Active 2018 Zion Montejo PA-C Attn: Accountin g,[address] [facility], [place], [address], [place] [facility] 9 16:10:54 Acute pharyngiti s 168884283 Active 2019 Zion Montejo PA-C Attn: Accountin g,[address] [facility], [place], [address], [place] [facility] 0 18:05:34 Tobacco dependence syndrome 19564077 Active 2019 Zion Montejo PA-C Attn: Accountin g,[address] [facility], [place], [address], [place] [facility] 0 14:29:56 Overweight 834512998 Active 2019 Zion Montejo PA-C Attn: Accountin g,[address] [facility], [place], [address], [place] [facility] 0 15:54:58 Insect bite, nonvenomou s, of neck 760260837 Active 2019 Zion Montejo PA-C Attn: Accountin g,[address] [facility], [place], [address], [place] [facility] 0 11:30:27 Dental abscess 388833090 Active 2019 Zion Montejo PA-C Attn: Accountin g,[address] [facility], [place], [address], [place] [facility] 0 13:28:33 Hearing loss 66310014 Active 2020 Zion Montejo PA-C Attn: Accountin g,[address] [facility], [place], [address], [place] [facility] 1 16:03:31 Insomnia 856334524 Active Zion Montejo PA-C Attn: Accountin g,[address] [facility], [place], [address], [place] [facility] 6 11:55:07 Angina pectoris 255421844 Active Zion Montejo PA-C Attn: Accountin g,[address] [facility], [place], [address], [place] [facility] 6 11:55:07 Allergic rhinitis 37450816 Active Zion Montejo PA-C Attn: Accountin g,[address] [facility], [place], [address], [place] [facility] 6 11:55:07 Folliculit is 27570135 Active Zion Montejo PA-C Attn: Accountin g,[address] [facility], [place], [address], [place] [facility] 6 11:55:07 Depressive disorder 77404393 Active 2016 Zion Montejo PA-C Attn: Accountin g,[address] [facility], [place], [address], [place] [facility] 7 14:57:10 Anxiety 14663393 Active 2016 Zion Montejo PA-C Attn: Accountin g,[address] [facility], [place], [address], [place] [facility] 7 15:00:25 Hyperlipid emia 51702818 Active 2016 Zion Montejo PA-C Attn: Nanette davis,[address] [facility], [place], [address], [facility] 7 15:04:40 Low back strain 700885539 Active 2016 Zion Montejo PA-C Attn: Nanette davis,[address] [facility], [place], [address], [facility] 7 16:00:10 Problem Notes None recorded. Medical Equipment None Reported. Allergies Allergen ID Allergen Name Allergen Category Reaction Reaction Severity Criticality Documentation Date Start Date Code Code System Note Provider Name and Address Organization Details Recorded Time 3060 codeine medicatio n rash Not available Not available 06/26/2014 2670 RxNorm Areli Keene MA null, [place] [facility] [place] 8 15:52:00 Medications Name Sig [...] Avai lable Vitals Date Recorded Body height Body mass index (BMI) Body weight Provider Name and Address Organization Details Last Updated DateTime 09/05/2020 160.02 cm 24.4 kg/m2 33780.75 g Areli Young MA [facility] 09/05/2020 12:51:07 Date Recorded Body height Provider Name an d Address Organization Details Last Updated DateTime 10/08/2020 160.02 cm Starla De La Cr u, [facility] 10/08/2020 12:35:04 Date Recorded Body height Provider Name an d Address Organization Details Last Updated DateTime 04/19/2020 160.02 cm Starla De La Cr uz, [facility] 04/19/2020 15:37:41 Date Recorded Body height Provider Name an d Address Organization Details Last Updated DateTime 07/05/2020 160.02 cm Starla De La Cr u, [facility] 07/05/2020 12:15:28 Social History Question Answer Notes LastModified by Organizat ion Details LastModified Time Tobacco Smoking Status Current Every Day Smoker Starla José MA null, [facility] 12/15/2019 10:59:40 What Is Your Level Of [...] Response Coronary Artery Disease N Other N High Blood Pressure Y Atrial Fibrillation N Kidney or Bladder Problems N Thyroid Problems N GI Problems N Depression N COPD N Blood Clots N Skin Problems N Anemia N Heart Attack ([place]) N Anxiety Disorder N Diabetes N Muscle, [...] virus, quadrivalent, preservative 9 completed Not Available [facility] 08/19/2019 02:40:53 Influenza, split virus, quadrivalent, preservative 5 completed Not Available [facility] 08/19/2019 02:32:08 Past Encounters Encounter ID Performer Location Encounter Start Date Encounter Closed Date Diagnosis/Indication Diagnosis SNOMED-CT Code Diagnosis ICD10 Code Diagnosis Note [id number] MD Brooke Baez (Adult Med) [address] [place] [id number] 06/26/2014 13:34:16 06/27/2014 11:14:11 Acute sinusitis 36966097 Hypertensive disorder 89863820 Gastroesop hageal reflux disease 424279788 Ankle pain 865597988 Chronic ob structive pulmonary disease 55612637 [id number] MD Brooke Baez (Adult Med) [address] [place] [id number] 04/16/2015 13:24:28 04/16/2015 14:55:14 Hypertensive disorder 46367587 Gastroesop hageal reflux disease 108172637 Chronic ob structive pulmonary disease 35843704 Active or passive immunization 563130184 Insomnia 581477763 [id number] TYLER Chase (Adult Med) [address] [place] [id number] 09/05/2015 15:16:57 09/05/2015 17:19:11 Acute sinusitis 72179040 J01.90 Chronic ob structive pulmonary disease 30061129 J44.9 Gastroesop hageal reflux disease 777688633 K21.9 Hypertensive disorder 38 913089 I10 Insomnia 472364905 G47.0 0 Angina pectoris 35819189 0 I20.9 [id number] TYLER Chase (Adult Med) [address] [place] [id number] 12/06/2015 15:23:06 12/06/2015 16:28:34 Hypertensive disorder 75842136 I10 Allergic rhinitis 834703 04 J30.9 Chronic ob structive pulmonary disease 84337803 J44.9 Gastroesop hageal reflux disease 428697858 K21.9 Insomnia 797987140 G47.0 0 [id number] Carol Heller MD [facility] (Adult Med) [address] [place] [id number] 03/25/2016 11:30:29 03/25/2016 11:59:50 Folliculitis 86448857 L73.9 Allergic rhinitis 627407 04 J30.9 Chronic ob structive pulmonary disease 27760754 J44.9 Gastroesop hageal reflux disease 441267969 K21.9 Hypertensive disorder 38 612153 I10 Insomnia 195094633 G47.0 0 Angina pectoris 34571609 0 I20.9 [id number] Carol Heller MD [facility] (Adult Med) [address] [place] [id number] 09/28/2016 13:24:07 09/28/2016 15:08:30 Insomnia 161861180 G47.00 Depressive disorder 3548 9007 F32.89 Hypertensive disorder 38 679406 I10 Anxiety 89750187 F41.9 Hyperlipidemia 91665518 E78.5 [id number] Carol Heller MD Brooke (Adult Med) [address] [place] [id number] 01/21/2017 15:27:44 01/21/2017 16:29:13 Anxiety 48017349 F41.9 Depressive disorder 3548 9007 F32.89 [id number] Carol Heller MD Brooke (Adult Med) [address] [place] [id number] 0 04/06/2017 15:51:13 04/06/2017 16:14:58 Acute sinusitis 82117275 J01.90 Chronic ob structive pulmonary disease 31007769 J44.9 Anxiety 38438823 F41.9 [id number] Carol Heller MD Brooke (Adult Med) [address] [place] [id number] 0 06/07/2017 15:25:56 06/07/2017 16:08:23 Acute sinusitis 56633174 J01.90 Insomnia 193686342 G47.0 0 Hypertensive disorder 38 218450 I10 Gastroesop hageal reflux disease 103045341 K21.9 Depressive disorder 3548 9007 F32.89 Hyperlipidemia 47129781 E78.5 Anxiety 94188992 F41.9 Chronic ob structive pulmonary disease 93707237 J44.9 Low back strain 95899365 1 S39.012D [id number] MD Brooke Baez (Adult Med) [address] [place] [id number] 0 11/02/2017 15:26:13 11/02/2017 16:22:00 Anxiety 52618119 F41.9 Acute bronchitis 8351127 2 J20.9 Hearing loss 56987271 H9 1.93 Chronic ob structive pulmonary disease 05870603 J44.9 [id number] MD Brooke Baez (Adult Med) [address] [place] [id number] 02/03/2018 10:30:36 02/07/2018 09:47:17 Anxiety 81756074 F41.9 Hypertensive disorder 38 637369 I10 Chronic ob structive pulmonary disease 88154328 J44.9 Gastroesop hageal reflux disease 247867080 K21.9 Angina pectoris 92558173 0 I20.9 Hyperlipidemia 58201358 E78.5 Family his tory of diabetes mellitus with complication 699808186 Z83.3 Screening for disorder 604546468 Z13.9 Screening for malignant neoplasm of colon 706925286 Z12.11 Depressive disorder 3548 9007 F32.89 Insomnia 662848965 G47.0 0 Low back strain 19895424 1 S39.012D [id number] Carol Heller MD [facility] (Adult Med) [address] [place] [id number] 0 05/17/2018 17:25:20 05/18/2018 09:54:52 Acute bronchitis 25524747 J20.9 Anxiety 65869222 F41.9 Gastroesop hageal reflux disease 002551816 K21.9 Chronic ob structive pulmonary disease 17572525 J44.9 [id number] MD Brooke Baez (Adult Med) [address] [place] [id number] 0 09/22/2018 13:26:08 09/23/2018 09:03:01 Anxiety 32972653 F41.9 Hypertensive disorder 38 869752 I10 Depressive disorder 3548 9007 F32.89 Tendinitis of left wrist region 6209071512 0183046 M77.8 Pain of le ft ankle joint 9915229917 7691241 M25.572 Acute bronchitis 7652826 2 J20.9 Low back strain 07991352 1 S39.012D Hyperlipidemia 84716807 E78.5 Chronic ob structive pulmonary disease 19347149 J44.9 Insomnia 138995774 G47.0 0 Gastroesop hageal reflux disease 928079793 K21.9 Allergic rhinitis 188974 04 J30.9 [id number] Carol Heller MD [facility] (Adult Med) [address] [place] [id number] 0 12/12/2018 15:25:44 12/13/2018 10:56:11 Pain of left ankle joint 9849017379 5589820 M25.572 Anxiety 18591767 F41.9 Acute bronchitis 6840585 2 J20.9 Hyperlipidemia 76694554 E78.5 Depressive disorder 3548 9007 F32.89 Gastroesop hageal reflux disease 425248511 K21.9 Hypertensive disorder 38 392118 I10 Allergic rhinitis 151135 04 J30.9 [id number] Carol Heller MD [facility] (Adult Med) [address] [place] [id number] 0 02/22/2019 10:25:58 02/23/2019 08:59:31 Acute bronchitis 99949343 J20.9 Pain of le ft ankle joint 3891362881 3764628 M25.572 Hyperlipidemia 60743244 E78.5 Anxiety 17800301 F41.9 Depressive disorder 3548 9007 F32.89 Chronic ob structive pulmonary disease 37392042 J44.9 Insomnia 783119815 G47.0 0 Gastroesop hageal reflux disease 889838701 K21.9 Hypertensive disorder 38 353578 I10 Allergic rhinitis 295117 04 J30.9 [id number] Carol Heller MD [facility] (Adult Med) [address] [place] [id number] 0 03/27/2019 14:25:55 03/28/2019 08:19:16 Hypertensive disorder 90001677 I10 Pain of le ft ankle joint 3041322890 4252597 M25.572 Anxiety 18259794 F41.9 Low back strain 00795923 1 S39.012D Hyperlipidemia 80701488 E78.5 Depressive disorder 3548 9007 F32.89 Chronic ob structive pulmonary disease 39190786 J44.9 Insomnia 853195140 G47.0 0 Angina pectoris 18025496 0 I20.9 Gastroesop hageal reflux disease 361846127 K21.9 Allergic rhinitis 130594 04 J30.9 [id number] Carol Heller MD [facility] (Adult Med) [address] [place] [address] 0 05/05/2019 11:28:33 05/05/2019 13:34:28 Pain of left ankle joint 4286699630 7271204 M25.572 Anxiety 11202840 F41.9 Administra tion of influenza vaccine 28513989 Z23 Cramp in lower limb 4499 91979 R25.2 bilateral Allergic rhinitis 386219 04 J30.9 Hypertensive disorder 38 214149 I10 Gastroesop hageal reflux disease 267169411 K21.9 Insomnia 152677500 G47.0 0 Chronic ob structive pulmonary disease 45954528 J44.9 Depressive disorder 3548 9007 F32.89 Hyperlipidemia 31382977 E78.5 [id number] Carol Heller MD [facility] (Adult Med) [address] [place] [address] 0 06/08/2019 14:24:29 06/08/2019 15:32:31 Acute bronchitis 49438295 J20.9 Pain of le ft ankle joint 8585942694 8922917 M25.572 Anxiety 04267457 F41.9 Chronic ob structive pulmonary disease 50896488 J44.9 Hyperlipidemia 37500846 E78.5 Depressive disorder 3548 9007 F32.89 Insomnia 968750088 G47.0 0 Gastroesop hageal reflux disease 739666308 K21.9 Hypertensive disorder 38 275271 I10 Allergic rhinitis 113699 04 J30.9 [id number] Carol Heller MD [facility] (Adult Med) [address] [place] [id number] 0 07/11/2019 15:28:24 07/11/2019 16:26:24 Administration of influenza vaccine 55903415 Z23 Hyperlipidemia 39167134 E78.5 Hypertensive disorder 38 573878 I10 Gastroesop hageal reflux disease 393283856 K21.9 Insomnia 840546001 G47.0 0 Anxiety 56627692 F41.9 Pain of le ft ankle joint 3833543927 4805236 M25.572 Chest pain 87691457 R07. 9 Allergic rhinitis 239158 04 J30.9 Chronic ob structive pulmonary disease 36647215 J44.9 Depressive disorder 3548 9007 F32.89 [id number] Carol Heller MD [facility] (Adult Med) [address] [place] [id number] 0 08/11/2019 17:22:26 08/11/2019 18:12:48 Hyperlipidemia 27895239 E78.5 Allergic rhinitis 475787 04 J30.9 Acute bronchitis 5530996 2 J20.9 Chronic ob structive pulmonary disease 17763514 J44.9 Acute pharyngitis 050513 003 J02.9 Pain of le ft ankle joint 7578016710 7069756 M25.572 Insomnia 270812846 G47.0 0 Gastroesop hageal reflux disease 647859254 K21.9 Depressive disorder 3548 9007 F32.89 [id number] Carol Heller MD [facility] (Adult Med) [address] [place] [id number] 0 09/08/2019 15:23:24 09/11/2019 09:11:40 Chronic obstructive pulmonary disease 91366299 J44.9 Depressive disorder 3548 9007 F32.89 Gastroesop hageal reflux disease 361842960 K21.9 Hyperlipidemia 27514657 E78.5 Insomnia 059198388 G47.0 0 Pain of le ft ankle joint 2322011534 3279825 M25.572 Hypertensive disorder 38 251954 I10 Anxiety 87662319 F41.9 Allergic rhinitis 626386 04 J30.9 [id number] Carol Heller MD [facility] (Adult Med) [address] [place] [address] [id number] 0 10/06/2019 15:21:10 10/09/2019 13:43:07 Anxiety 58855076 F41.9 Pain of le ft ankle joint 6539978222 9364595 M25.572 Overweight 034063472 E66 .3 Allergic rhinitis 811143 04 J30.9 [id number] TYLER Chase (Adult Med) [address] [place] [address] [id number] 0 11/07/2019 14:19:03 11/07/2019 16:25:18 Allergic rhinitis 70361777 J30.9 Ankle pain 673908265 M25 .579 Chronic ob structive pulmonary disease 76252577 J44.9 Gastroesop hageal reflux disease 390187193 K21.9 Hyperlipidemia 88491651 E78.5 Hypertensive disorder 38 612074 I10 Insomnia 608468322 G47.0 0 Low back strain 89456508 1 S39.012D Pain of le ft ankle joint 5844375083 2906350 M25.572 Acute bronchitis 6728864 2 J20.9 [id number] MD Brooke Baez (Adult Med) [address] [place] [address] 72816-437 0 12/07/2019 12:41:47 12/08/2019 11:46:51 Pain of left ankle joint 9384217333 2315905 M25.572 Hypertensive disorder 38 713539 I10 Anxiety 00702436 F41.9 Allergic rhinitis 214841 04 J30.9 Chronic ob structive pulmonary disease 71104721 J44.9 Depressive disorder 3548 9007 F32.89 Gastroesop hageal reflux disease 481122409 K21.9 Hyperlipidemia 31552073 E78.5 Insomnia 597978427 G47.0 0 Angina pectoris 08828461 0 I20.9 [id number] MD Brooke Baez (Adult Med) [address] [place] [address] [id number] 0 12/15/2019 08:01:46 12/15/2019 11:31:49 Insect bite, nonvenomous, of neck 930145803 S10.96XA Allergic rhinitis 416382 04 J30.9 Chronic ob structive pulmonary disease 32453302 J44.9 Depressive disorder 3548 9007 F32.89 Gastroesop hageal reflux disease 982521197 K21.9 Hyperlipidemia 63368911 E78.5 Hypertensive disorder 38 862212 I10 Insomnia 613159841 G47.0 0 [id number] MD Brooke Baez (Adult Med) [address] [place] [address] [id number] 0 01/23/2020 13:38:37 01/23/2020 14:41:57 Chronic obstructive pulmonary disease 77670554 J44.9 Gastroesop hageal reflux disease 122930568 K21.9 Hyperlipidemia 45344437 E78.5 Hypertensive disorder 38 322142 I10 Insomnia 868147583 G47.0 0 Tobacco de pendence syndrome 58671942 F17.200 Allergic rhinitis 675127 04 J30.9 Depressive disorder 3548 9007 F32.89 Pain of le ft ankle joint 1116804026 9642341 M25.572 Ankle pain 609180878 M25 .574 [id number] MD Brooke Baez (Adult Med) [address] [place] [address] [id number] 0 03/21/2020 08:02:24 03/21/2020 16:54:06 Pain of left ankle joint 8763481111 6903610 M25.572 Allergic rhinitis 334991 04 J30.9 Ankle pain 942879215 M25 .579 Chronic ob structive pulmonary disease 63553828 J44.9 Depressive disorder 3548 9007 F32.89 Gastroesop hageal reflux disease 179152710 K21.9 Hyperlipidemia 92770033 E78.5 Hypertensive disorder 38 888408 I10 Insomnia 222629121 G47.0 0 Tobacco de pendence syndrome 31630896 F17.349 [id number] Carol Heller MD [facility] (Adult Med) [address] [place] [address] [id number] 0 04/19/2020 08:14:13 04/19/2020 16:25:30 Pain of left ankle joint 8057992321 3852302 M25.572 Anxiety 45844979 F41.9 Allergic rhinitis 288289 04 J30.9 Chronic ob structive pulmonary disease 77373011 J44.9 Depressive disorder 3548 9007 F32.89 Gastroesop hageal reflux disease 529211313 K21.9 Hyperlipidemia 73738187 E78.5 Hypertensive disorder 38 783798 I10 Insomnia 594706765 G47.0 0 Tobacco de pendence syndrome 25428072 F17.753 [id number] MD Brooke Baez (Adult Med) [address] [place] [address] [id number] 0 05/23/2020 07:48:29 05/23/2020 15:57:19 Chronic obstructive pulmonary disease 73174990 J44.9 Depressive disorder 3548 9007 F32.89 Pain of le ft ankle joint 8774220682 6060288 M25.572 Allergic rhinitis 484183 04 J30.9 Tobacco de pendence syndrome 17078817 F17.200 Insomnia 220690881 G47.0 0 Hypertensive disorder 38 235580 I10 Hyperlipidemia 56864361 E78.5 Gastroesop hageal reflux disease 982816233 K21.9 Anxiety 86047417 F41.9 Ankle pain 158868410 M25 .091 [id number] MD Brooke Baez (Adult Med) [address] [place] [address] [id number] 0 07/05/2020 10:22:47 07/05/2020 15:19:41 Anxiety 68591230 F41.9 Pain of le ft ankle joint 2283779424 6498653 M25.572 Dental abscess 346698209 K04.7 Gastroesop hageal reflux disease 597334005 K21.9 Hyperlipidemia 20638816 E78.5 Hypertensive disorder 38 902239 I10 Insomnia 243499787 G47.0 0 Low back strain 40410038 1 S39.012D Tobacco de pendence syndrome 16933040 F17.200 Allergic rhinitis 222259 04 J30.9 [id number] [facility] [address] [place] [address] [id number] 0 09/05/2020 09:00:17 09/06/2020 09:14:18 Acute bronchitis 22403337 J20.9 Anxiety 13782971 F41.9 Pain of le ft ankle joint 7804245190 4781776 M25.572 Hearing loss 18091513 H9 1.93 [id number] MD Brooke Baez (Adult Med) [address] [place] [phone] 10/08/2020 08:50:50 10/08/2020 13:02:41 Allergic rhinitis 01059475 J30.9 Anxiety 41757969 F41.9 Chronic ob structive pulmonary disease 80680210 J44.9 Depressive disorder 3548 9007 F32.89 Gastroesop hageal reflux disease 338182581 K21.9 Hyperlipidemia 84035250 E78.5 Hypertensive disorder 38 246580 I10 Insomnia 871586880 G47.0 0 Tobacco de pendence syndrome 79243340 F17.200 Health Concerns Section Related Observation LastModified by Organization Detai ls LastModified Time None Recorded Concern Status LastModified by Organization Details LastModified Time None Recorded Advance Directives Directive None Recorded Payers Encounter Date Sequence Insurance Name Policy Number Policy Camilo Covered Member ID Camilo Member ID Guarantor Name 04/19/2020 1 [employer] [place]MEDICARE REPLACEMENT HMO) Cary Cubilla [id number] Marilyn Cubilla 05/23/2020 1 [employer] [place]) Marilyn Cubilla [id number] Marilyn Cubilla 07/05/2020 1 [employer] [place]) Marilyn Cubilla [id number] Cary Cubilla 09/05/2020 1 [employer] [place]IC[place]PLACEMENT HMO) Cary Cubilla [id number] Cary Cubilla 10/08/2020 1 [employer] [place]MEDICARE [place]PLACEMENT HMO) Marilyn Cubilla [id number] Marilyn Cubilla Notes Date Note Type Note Provider Name and Address Organization Details Recorded Time 04/19/2020 text/html purse stojoe at grocery...... Zion Montejo PA-C Attn: Accounting,[address] [place], [address], [facility] 04/22/2020 21:59:12 05/23/2020 text/html they have a dumpster , her back is so tight ...ankle with screws gave out ... Zion Montejo PA-C Attn: [address]ing,[address] [place], [address], [facility] 05/27/2020 10:51:34 07/05/2020 text/html left 3rd molar lower ... infected .. for 3 weeks ... saw Dentist Zion Montejo PA-C Attn: Accounting,[address] [place], [address], [facility] 07/09/2020 13:02:02 10/08/2020 text/html in [place] , sons took her to get away , , she was there with him , he apologized , she forgave him ... Zion Montejo PA-C Attn: Accounting,[address] [facility], [place], [address], [place] [facility] 10/09/2020 17:51:05 OBGyn Episode No OBEpisode recorded.
--- OUTSIDE RECORDS SUMMARY | 2025-01-01 09:39 | XMS_ITS | Clinical Summary ---
Author Organization [facility] Address [address] [facility] [place] [address] Care Team Providers Care Machinist Bench Name Role Phone Monalisa Balderas MD Primary Care Provider [phone] Source Comments [facility],non-owned Affiliates and Associated Physician Practices is amultiple site organization consisting of ambulatory clinics and hospital sitesin [place], [place], [place] and [place]. This disclosure is being madepursuant to the Care Everywhere program and may not contain all information available regarding this patient. Last updated 18.[facility] Allergies No known active allergies Medications * [...] 05/15/2021 Immunizations Immunization Administration Dates Next Due Goodie Goodie App primary monoval ent 12+ yr 0.3mL Purple [...] Oxygen Concentration 21% 06/28/2021 1 :13 AM WORKER'S COMPENSATION CLAIMS EXAMINER Weight 47.1 kg (103 lb 12.8 oz) 10/27/2021 6:43 AM CDT Height 160 cm (5' 2.99) 10/27/2021 6:43 AM CDT Body Mass Index [...] Last Indicated C DIFF 05/19/2021 05/19/2021 Insurance [facility] MEDICAID - [place] Advance Directives * Full Code (Latest Code Status on File) Date Activated Date Inactivated Comments 10/27/2021 7:50 AM 10/31/2021 3:10 PM * Full Code Date Activated Date Inactivated Comments 06/23/2021 1:24 PM 06/30/2021 7:20 PM * Full Code Date Activated Date Inactivated Comments 05/15/2021 5:48 PM 05/22/2021 7:52 PM Care Teams Machinist Bench Relationship Specialty Start Date End Date Monalisa Balderas MD [address] [place] [address] [place] [address] PCP - General Internal Medicine 05/15/21
--- NOTE | 2025-01-01 09:47 | ED_ITS ---
HPI - General Adult General Chief complaint: Unspecified Stated complaint: gtube replacement Time Seen by Provider: 01/01/25 09:09 Source: EMS Mode of arrival: EMS Limitations: other (history of CVA) History of Present Illness HPI narrative: This is a 64-year-old female that presents to the emergency department for feeding tube replacement. Reports they attempted to replace this at the facility without success this morning. Sent in for further management. Related Data Home Medications ?Medication ?Instructions ?Recorded ?Confirmed ?Last Taken ?Type aspirin 81 mg chewable tablet 81 mg feeding tube DAILY 01/16/21 12/21/24 Unknown History atorvastatin 80 mg tablet 80 mg feeding tube HS 01/16/21 12/21/24 Unknown History cholecalciferol (vitamin D3) 25 25 mcg feeding tube DAILY 01/16/21 12/21/24 Unknown History mcg (1,000 unit) capsule famotidine 20 mg tablet 20 mg feeding tube BID 01/16/21 12/21/24 Unknown History ondansetron HCl 4 mg tablet 4 mg feeding tube Q6H PRN Nausea 05/06/21 12/21/24 Unknown History (Zofran) And Vomiting Ventolin HFA 2 puff inhalation PRN PRN Wheezing 01/23/23 12/21/24 Unknown History acetaminophen 650 mg feeding tube Q4H PRN Pain 01/23/23 12/21/24 Unknown History (Scale Score 1-3)/fever ascorbic acid (vitamin C) 500 mg 500 mg feeding tube DAILY 01/23/23 12/21/24 Unknown History tablet (Vitamin C) carvedilol 6.25 mg tablet 6.25 mg feeding tube BID 01/23/23 12/21/24 Unknown History ferrous sulfate 220 mg (44 mg 330 mg feeding tube BID 01/23/23 12/21/24 Unknown History iron)/5 mL oral elixir magnesium citrate 300 ml feeding tube DAILY PRN 01/23/23 12/21/24 Unknown History Constipation bisacodyl 10 mg rectal suppository 10 mg RECTAL DAILY PRN constipation 09/11/24 12/21/24 Unknown History ezetimibe 10 mg tablet 10 mg feeding tube .every bedtime 09/11/24 12/21/24 Unknown History lisinopril 5 mg tablet 5 mg feeding tube DAILY 09/11/24 12/21/24 Unknown History silver sulfadiazine 1 % topical 1 applic topical DAILY 09/11/24 12/21/24 Unknown History cream sodium phosphates 19 gram-7 118 ml RECTAL DAILY PRN 09/11/24 12/21/24 Unknown History gram/118 mL enema (Fleet Enema) constipation Allergies Allergy/AdvReac Type Severity Reaction Status Date / Time No Known Allergies Allergy Verified 09/11/24 15:34 Review of Systems Review of Systems: ROS unobtainable: Yes unobtainable due to medical condition PMFSH Past Medical History Medical History (Updated 01/01/25 @ 11:09 by Felicity Navarro PA-C) Right upper quadrant abdominal abscess History of acute cholecystitis Chronic anemia Dyslipidemia Chronic obstructive pulmonary disease Cerebrovascular accident complicated by intracranial hemorrhage with resultant right-sided weakness, dysphagia, and expressive aphasia Reflux esophagitis High cholesterol Hypertension Depression Surgical History Surgical History History of incision and drainage History of insertion of cholecystostomy tube History of gastrostomy tube placement History of esophagogastroduodenoscopy (EGD) (05/2021) Hiatal hernia and reflux esophagitis History of ankle surgery Family History Family History Other Cancer Cerebrovascular accident Diabetes mellitus Heart disease Hypertension Social History Social History Social History: Surrogate medical decision maker: Rudy Ram, son. Code status: FULL CODE. Smoking packs per day: 0.5 Smoking cigarettes per day: 10.0 Smoking status: Unknown if ever smoked Alcohol intake: unknown Substance use: unknown Substance use type: does not use Living arrangements: long-term Additional living arrangements comments: . She has 2 sons. Additional occupation/education comments: Disabled. Spiritual care concerns: No Exam Narrative: GENERAL: Chronically ill-appearing, well-nourished, and in no acute distress. HEAD: Normocephalic, atraumatic. EYES: EOMI. ENT: Nares clear, no rhinorrhea or epistaxis. Mucous membranes moist. Oropharynx without tonsillar hypertrophy exudate or other lesions. CHEST: No respiratory distress. HEART: Regular rate ABDOMEN: Soft, nontender, nondistended, normal active bowel sounds. G tube stoma present in the mid abdomen EXTREMITIES: Normal range of motion. No edema. SKIN: Warm, dry, no rash. NEURO: No focal deficits. Alert and oriented x3. PSYCH: Normal mood and affect Course Vital Signs Vital signs: Vital Signs Temperature 97.6 F 01/01/25 08:22 Pulse Rate 69 01/01/25 08:22 Respiratory Rate 18 01/01/25 08:22 Blood Pressure 114/64 01/01/25 08:22 Pulse Oximetry 100 01/01/25 08:22 Oxygen Delivery Room Air 01/01/25 08:22 Temperature 97.6 F 01/01/25 08:22 Pulse Rate 74 01/01/25 10:37 Respiratory Rate 18 01/01/25 10:37 Blood Pressure 138/78 01/01/25 10:37 Pulse Oximetry 100 01/01/25 10:37 Oxygen Delivery Room Air 01/01/25 08:22 Medical Decision Making MDM Narrative Medical decision making narrative: Patient presents the emergency department for G-tube replacement. Her vital signs are normal. She is in no acute distress. Tube was successfully replaced with imaging confirming. Will be discharged back to her facility Vital Signs Vital Signs: Vital Signs Temperature 97.6 F 01/01/25 08:22 Pulse Rate 69 01/01/25 08:22 Respiratory Rate 18 01/01/25 08:22 Blood Pressure 114/64 01/01/25 08:22 Pulse Oximetry 100 01/01/25 08:22 Oxygen Delivery Room Air 01/01/25 08:22 Temperature 97.6 F 01/01/25 08:22 Pulse Rate 74 01/01/25 10:37 Respiratory Rate 18 01/01/25 10:37 Blood Pressure 138/78 01/01/25 10:37 Pulse Oximetry 100 01/01/25 10:37 Oxygen Delivery Room Air 01/01/25 08:22 Imaging Data Radiologist's impression: ITS Impressions Abdomen X-Ray 01/01/25 11:03 Impression: 1: Appropriate gastric tube positioning within the stomach. Critical Care Time Critical Care Time Critical Care Time: No Discharge Plan Discharge Clinical Impression: Gastrostomy tube dysfunction Patient Disposition: NH [facility]/Asst Living Condition: Stable Instructions: How to Use and Care for Your PEG Tube (DC) Additional Instructions: Return to the ER if you experience fever, abdominal pain with nausea and vomiting, or any other symptoms that are concerning to you Follow up with your promotions assistant sales marketing Patient Language: Pashto Prescriptions: No Action aspirin 81 mg tablet,chewable 81 mg feeding tube DAILY atorvastatin 80 mg tablet 80 mg feeding tube HS cholecalciferol (vitamin D3) 25 mcg (1,000 unit) capsule 25 mcg feeding tube DAILY famotidine 20 mg tablet 20 mg feeding tube BID carvedilol 6.25 mg tablet 6.25 mg feeding tube BID magnesium citrate Solution 300 ml feeding tube DAILY PRN (Reason: Constipation) Rx Instructions: give per peg in am as needed for constipation if no results after enema ferrous sulfate 220 mg (44 mg iron)/5 mL Elixir 330 mg feeding tube BID Ventolin HFA 2 puff inhalation PRN PRN (Reason: Wheezing) acetaminophen 650 mg feeding tube Q4H PRN (Reason: Pain (Scale Score 1-3)/fever) ascorbic acid (vitamin C) [Vitamin C] 500 mg tablet 500 mg feeding tube DAILY vancomycin 1,000 mg Recon Soln 125 mg feeding tube Q6HR 5 Days Qty: 20 0RF cefuroxime axetil 250 mg Tablet 500 mg feeding tube Q12HR 4 Days Qty: 16 0RF midodrine 10 mg Tablet 5 mg feeding tube TID 7 Days Qty: 11 0RF ondansetron HCl [Zofran] 4 mg Tablet 4 mg feeding tube Q6H PRN (Reason: Nausea And Vomiting) ezetimibe 10 mg tablet 10 mg feeding tube .every bedtime Rx Instructions: 10mg every bedtime lisinopril 5 mg tablet 5 mg feeding tube DAILY silver sulfadiazine 1 % cream 1 applic TOPICAL DAILY Rx Instructions: APPLY TO LOWER ABDOMEN TOPICALLY EVERY DAY FOR WOUND CARE. CLEANSE WITH WC/NS. APPLY SSD COLLAGEN POWDER CALCIUM ALGINATE AND COVER WITH [place] DRESSING. bisacodyl 10 mg suppository 10 mg RECTAL DAILY PRN (Reason: constipation) Rx Instructions: INSERT 1 SUPPOSITORY RECTALLY NEEDED FOR CONSTIPATION DAILY IF NO RESULTS FOR MOM. Fleet Enema 19-7 gram/118 mL enema 118 ml RECTAL DAILY PRN (Reason: constipation) Rx Instructions: INSERT 1 APPLICATION RECTALLY NEEDED FOR CONSTIPATION IF NO RESULTS 1 DAY AFTER SUPPOSITORY. Follow-up/Referrals: Sherrie,Monalisa Snowden MD [Primary Care Provider] - Stand Alone Forms: Halfway Discharge
[2025-01-01 10:37] VITALS: BP 138/78; PULSE 74; RESP 18; O2SAT 100
--- NOTE | 2025-01-01 10:55 | PC.NURSE ---
New 16Fr G-tube placed back in by the EDP.
[2025-01-01 11:30] VITALS: BP 108/65; PULSE 70; RESP 16; O2SAT 100
== END 2025-01-01 13:31 ==
PROVIDERS: Emergency Provider Physician Assistant; PCP Internal Medicine
DX: T85.528A Displacement of other gastrointestinal prosthetic devices, implants and grafts, initial encounter (principal); Y73.1 Therapeutic (nonsurgical) and rehabilitative gastroenterology and urology devices associated with adverse incidents; D64.9 Anemia, unspecified; E78.5 Hyperlipidemia, unspecified; J44.9 Chronic obstructive pulmonary disease, unspecified; I10 Essential (primary) hypertension; F32.A Depression, unspecified; I69.391 Dysphagia following cerebral infarction; R13.10 Dysphagia, unspecified
CPT/HCPCS: 43762; 99283

== ENCOUNTER 2025-03-08 02:19 | Emergency (ER) | payer MEDICARE, MEDICAID, SELFPAY ==
[2025-03-08] VITALS (10 sets, daily range): BP systolic 91–124; BP diastolic 48–84; PULSE 69–87; RESP 14–20; TEMP 36.8; O2SAT 95–99
--- NOTE | ~2025-03-08 | XR_ITS ---
Clinical Indication: Aspiration, respiratory distress PA and lateral views of the chest: Comparison: 12/24/2024 Findings: The lungs are clear, without evidence of focal consolidation or pleural effusion. Possible COPD. Cardiomediastinal silhouette is within normal limits. Bones and soft tissues are unremarkable. Impression: Clear lungs. Possible COPD. Reviewed, dictated and finalized at location . Impression: Clear lungs. Possible COPD.
--- NOTE | 2025-03-08 02:25 | ECG_ITS ---
Test Date: 2025-03-08 02:27:28 Measurements Intervals [place] Rate: 82 P: 66 NM: 168 QRS: 68 QRSD: 67 T: 79 QT: 359 QTc: 421 Interpretive Statements SINUS RHYTHM CONSIDER ANTERIOR INFARCT, AGE INDETERMINATE BASELINE ARTIFACT- I, II, III, AVR, AVL, AVF, V1-V3 ABNORMAL ECG Compared to ECG 12/20/2024 15:43:16 NO SIGNIFICANT CHANGE Electronically Signed On 03-08-2025 06:25:40 CDT by Trent Reyes D.O.
--- OUTSIDE RECORDS SUMMARY | 2025-03-08 03:27 | XMS_ITS | Clinical Summary ---
Author Organization [facility] Address [address] [place] [address] Care Team Providers Care Managing Principal Name Role Phone None, Provider MD Primary Care Provider Unavaila ble Allergies No known active allergies Medications budesonide-form oterol 80-4.5 MCG/ACT inhaler Inhale 2 puffs into the lungs 2 (two) times daily. Active albuterol sulfate HFA 108 (90 Base) MCG/ACT inhaler Inhale 2 puffs into the lungs every 6 (six) hours as needed for Wheezing. Active clonazePAM 0.5 MG tabletIndicatio ns:G tube feedings ([facility]) 1 tablet (0.5 mg total) by Per [...] AM C DT Height 160 cm (5' 3) 11/07/2020 4:02 PM CDT Body Mass Index 24.21 11/07/2020 4:02 PM CDT Plan of Treatment Health Maintenance Due Date Last Done Comments Cervical Cancer Screening Pa p Smear (Age 30 to 64) Every 3 Years 1961 Colorectal Cancer Screening Colonoscopy (10 Years) 1961 Annual Physical 1964 Hepatitis C 1979 DTaP, Tdap and Td Vaccines ( 1 - Tdap) 1980 Pneumococcal Vaccine: 50+ Ye ars (1 of 2 - PCV) 1980 Cervical Cancer Screening Pa p with HPV Testing (Age 30 to 64) Every 5 Years 1991 Cervical Cancer Screening with HPV 1991 Mammogram Screening 2001 Zoster Vaccines (1 of 2) 2011 COVID-19 Vaccine ( - 2023-2 5 season) 2024 RSV Immunization or 60+ Years (1 [...] in care transitions and discharge planning General Connie Caro, RECYCLE DRIVER Medical Devices Implanted Type Area Manager Gallery Device Identifier Shelf Expiration Date Model / Serial / Lot Peg Kit 24fr Push- Non-Safety - [id number] Implanted:Qt y: 1 on 11/20/2020 by Dank Damian MD at [facility] Tube Implant N/A: Abdomen [employer] [id number] 07/11/2021 [id number] / / [id number] [place] [address] MEDICAID MEDICARE Advance Directives Documents on File Type Date Recorded Patient Transportation Planner Expl anation Advance Directives and Living Will [...] 5:23 PM 11/09/2020 4:47 AM Care Teams Managing Principal Relationship Specialty Start Date End Date None, Provider, PCP - General 11/07/20
--- OUTSIDE RECORDS SUMMARY | 2025-03-08 03:27 | XMS_ITS | Clinical Summary ---
Author Organization [facility] Address [address] [facility] [place] [address] Care Team Providers Care Equipment Operator/Laborer Name Role Phone Monalisa Balderas MD Primary Care Provider [phone] Source Comments [facility],non-owned Affiliates and Associated Physician Practices is amultiple site organization consisting of ambulatory clinics and hospital sitesin [place], [place], [place]. This disclosure is being madepursuant to the Care Everywhere program and may not contain all information available regarding this patient. Last updated 18.[facility] Allergies No known active allergies Medications * [...] 05/15/2021 Immunizations Immunization Administration Dates Next Due Ikaria primary monoval ent 12+ yr 0.3mL Purple [...] Oxygen Concentration 21% 06/28/2021 1 :13 AM STRATEGIC SOLUTIONS CONSULTANT Weight 47.1 kg (103 lb 12.8 [...] 07/29/2021, 06/30/2021 DEPRESSION SCREENING 08/02/2024 INFLUENZA VACCINE (#1) 2025 , 07/11/2019, 04/16/2015 Respiratory Syncytial Virus (RSV) Vaccine [...] Last Indicated C DIFF 05/19/2021 05/19/2021 Insurance [facility] MEDICAID - [place] Advance Directives * Full Code (Latest Code Status on File) Date Activated Date Inactivated Comments 10/27/2021 7:50 AM 10/31/2021 3:10 PM * Full Code Date Activated Date Inactivated Comments 06/23/2021 1:24 PM 06/30/2021 7:20 PM * Full Code Date Activated Date Inactivated Comments 05/15/2021 5:48 PM 05/22/2021 7:52 PM Care Teams Equipment Operator/Laborer Relationship Specialty Start Date End Date Monalisa Balderas MD [address] [place] [address] [place] [address] PCP - General Internal Medicine 05/15/21
--- OUTSIDE RECORDS SUMMARY | 2025-03-08 03:27 | XMS_ITS | Clinical Summary ---
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 S/b signal tower director. OP regimen is Glucerna 360mL QID with 180mL FWF with each feed. Resumed TF and tolerated. Assessment & Plan (01/27/2021 3:35 PM CDT): -Initially Keep NPO for possible procedure, TF orders placed on hold. S/b signal tower director. OP regimen is Glucerna 360mL QID with 180mL FWF with each feed. Resumed and tolerated. Assessment & Plan (01/26/2021 12:51 PM CDT): -Initially Keep NPO for possible procedure, TF orders placed on hold. S/b signal tower director. -OP regimen is Glucerna 360mL QID with 180mL FWF with each feed. -Resume as tolerated. Assessment & Plan (01/25/2021 11:37 AM CDT): -Keep NPO for possible procedure, TF orders placed on hold. S/b signal tower director. -OP regimen is Glucerna 360mL QID with [...] bloody output from drain and transferred to [facility] for further management. -Initial OSH CT [...] bloody output from drain and transferred to [facility] for further management. -Initial OSH CT [...] bloody output from drain and transferred to [facility] for further management. -Initial OSH CT [...] bloody output from drain and transferred to [facility] for further management. -Initial OSH CT [...] bloody output from drain and transferred to [facility] for further management. -Initial OSH CT [...] s/p G-tube -Continue ASA 81, atorvastatin 80 Surgical History Surgery Date Site/Laterality Comments GALLBLADDER DRAINAGE IR CHOLANGIOGRAM THROUGH EXISTING CATHETER 01/27/2021 N/A Medical History Medical History Date Comments COPD (chronic obstructive pulmonary disease) Hypertension Depression Stroke (HCC) Dysphagia 2022 GERD [...] Vaccine (2 - season) 2024 Influenza Vaccine (#1) 2025 , 07/11/2019, 04/16/2015 Insurance [employer] HMO [employer] HMO Advance Directives For more information, please contact: [phone] * Full Code (Latest Code Status on File) Date Activated Date Inactivated Comments 10/20/2024 3:06 AM 10/25/2024 10:26 PM * Full Code Date Activated Date Inactivated Comments 01/24/2021 9:08 PM 01/29/2021 5:[address] Relationship Specialty Start Date End Date Unknown, Notinfile PCP - General 01/24/21
--- NOTE | 2025-03-08 04:05 | ED_ITS ---
HPI - General Adult General Chief complaint: Unspecified Stated complaint: POSSIBLE ASPIRATION Time Seen by Provider: 03/08/25 02:54 Source: RN notes reviewed Mode of arrival: EMS Limitations: physical limitation and other (non verbal after stroke) History of Present Illness HPI narrative: Patient not able to provide any history. Nurse to nurse report had noted that she is on continuous tube feeds and at 11:00 p.m. her respiratory rate was 32 and she had a wet cough and was spitting up. They requested a stat chest x-ray be performed and that her blood pressure has been 87/62 with rales and diminished breath sounds. They also noted that they have been unable to contact her family in 3 years per facility report. They were reportedly concern for possible aspiration. EMS had not noted any respiratory distress. She is contracted and nonverbal due to a stroke. Related Data Home Medications ?Medication ?Instructions ?Recorded ?Confirmed ?Last Taken ?Type aspirin 81 mg chewable tablet 81 mg feeding tube DAILY 01/16/21 12/21/24 Unknown History atorvastatin 80 mg tablet 80 mg feeding tube HS 01/16/21 12/21/24 Unknown History cholecalciferol (vitamin D3) 25 25 mcg feeding tube DAILY 01/16/21 12/21/24 Unknown History mcg (1,000 unit) capsule famotidine 20 mg tablet 20 mg feeding tube BID 01/16/21 12/21/24 Unknown History ondansetron HCl 4 mg tablet 4 mg feeding tube Q6H PRN Nausea 05/06/21 12/21/24 Unknown History (Zofran) And Vomiting Ventolin HFA 2 puff inhalation PRN PRN Wheezing 01/23/23 12/21/24 Unknown History acetaminophen 650 mg feeding tube Q4H PRN Pain 01/23/23 12/21/24 Unknown History (Scale Score 1-3)/fever ascorbic acid (vitamin C) 500 mg 500 mg feeding tube DAILY 01/23/23 12/21/24 Unknown History tablet (Vitamin C) carvedilol 6.25 mg tablet 6.25 mg feeding tube BID 01/23/23 12/21/24 Unknown History ferrous sulfate 220 mg (44 mg 330 mg feeding tube BID 01/23/23 12/21/24 Unknown History iron)/5 mL oral elixir magnesium citrate 300 ml feeding tube DAILY PRN 01/23/23 12/21/24 Unknown History Constipation bisacodyl 10 mg rectal suppository 10 mg RECTAL DAILY PRN constipation 09/11/24 12/21/24 Unknown History ezetimibe 10 mg tablet 10 mg feeding tube .every bedtime 09/11/24 12/21/24 Unknown History lisinopril 5 mg tablet 5 mg feeding tube DAILY 09/11/24 12/21/24 Unknown History silver sulfadiazine 1 % topical 1 applic topical DAILY 09/11/24 12/21/24 Unknown History cream sodium phosphates 19 gram-7 118 ml RECTAL DAILY PRN 09/11/24 12/21/24 Unknown History gram/118 mL enema (Fleet Enema) constipation Allergies Allergy/AdvReac Type Severity Reaction Status Date / Time No Known Allergies Allergy Verified 09/11/24 15:34 PMFSH Past Medical History Medical History Cognitive communication deficit Dysphagia, oropharyngeal phase Right upper quadrant abdominal abscess History of acute cholecystitis Chronic anemia Dyslipidemia Chronic obstructive pulmonary disease Cerebrovascular accident complicated by intracranial hemorrhage with resultant right-sided weakness, dysphagia, and expressive aphasia Reflux esophagitis High cholesterol Hypertension Depression Surgical History Surgical History History of incision and drainage History of insertion of cholecystostomy tube History of gastrostomy tube placement History of esophagogastroduodenoscopy (EGD) (05/2021) Hiatal hernia and reflux esophagitis History of ankle surgery Family History Family History Other Cancer Cerebrovascular accident Diabetes mellitus Heart disease Hypertension Social History Social History (Updated 03/08/25 @ 04:26 by Samantha Acosta MD) Social History: . She has 2 sons. Surrogate medical decision maker: Rudy Ram, son. Code status: FULL CODE. Smoking packs per day: 0.5 Smoking cigarettes per day: 10.0 Smoking status: Unknown if ever smoked Alcohol intake: unknown Substance use: unknown Substance use type: does not use Living arrangements: penitentiary Additional living arrangements comments: [facility] Additional occupation/education comments: Disabled. 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 HEAD: Normocephalic, atraumatic. EYES: Non injected, non icteric. Occasionally makes eye contact but in general looks off in other directions. ENT: Nares clear, no rhinorrhea or epistaxis. NECK: Supple. No meningismus. CHEST: Speaking in full sentences. No respiratory distress. Lungs clear to auscultation bilaterally without wheezes crackles or areas of consolidation. No cough, retractions, tachypnea, nasal flaring, accessory muscle usage during exam. HEART: Regular rate and rhythm. . ABDOMEN: Soft, nondistended. No rigidity or guarding. Not peritoneal. Feeding tube in place that appears appropriate. Clean warm and dry. EXTREMITIES: Contractures. SKIN: Warm, dry, no rash. NEURO: Alert but not oriented. Nonverbal. Does not answer questions. Does not follow commands. Course Vital Signs Vital signs: Vital Signs Pulse Rate 84 03/08/25 02:19 Respiratory Rate 14 03/08/25 02:19 Blood Pressure 109/67 03/08/25 02:19 Pulse Oximetry 95 03/08/25 02:19 Oxygen Delivery Room Air 03/08/25 02:19 Temperature 98.2 F 03/08/25 02:24 Pulse Rate 78 03/08/25 08:00 Respiratory Rate 16 03/08/25 08:00 Blood Pressure 106/60 03/08/25 08:00 Pulse Oximetry 98 03/08/25 08:00 Oxygen Delivery Room Air 03/08/25 02:19 Medical Decision Making [facility] Narrative Medical decision making narrative: Patient who is nonverbal and has contractures after a stroke presents to the emergency department. She resides at a local nursing facility and EMS was called as staff was concerned that patient had possibly aspirated and was having difficulty breathing and had low blood pressure. EMS noted no respiratory distress and had appropriate blood pressure. In the emergency department they are afebrile with vital signs within normal limits. Chest x-ray read here as clear although possible COPD. Patient has no wheezes on exam. Normocytic anemia, stable from previous. Very mild hyperkalemia. Will give some treatment with calcium , Lasix, albuterol. Patient has otherwise been hemodynamically stable without any symptoms or evidence of distress while in the emergency department. Stable to be discharged back to facility. Vital Signs Vital Signs: Vital Signs Pulse Rate 84 08/07/25 02:19 Respiratory Rate 14 03/08/25 02:19 Blood Pressure 109/67 03/08/25 02:19 Pulse Oximetry 95 03/08/25 02:19 Oxygen Delivery Room Air 03/08/25 02:19 Temperature 98.2 F 03/08/25 02:24 Pulse Rate 78 03/08/25 08:00 Respiratory Rate 16 03/08/25 08:00 Blood Pressure 106/60 03/08/25 08:00 Pulse Oximetry 98 03/08/25 08:00 Oxygen Delivery Room Air 03/08/25 02:19 Lab Data Lab results reviewed: Yes I reviewed the patient's lab results. 03/08/25 05:22 03/08/25 05:05 Labs: Lab Results 03/08/25 03/08/25 Range/Units 05:05 05:22 WBC 6.4 (4.5-10.0) K/mm3 RBC 4.28 (4.2-5.4) M/mm3 Hgb 10.6 L (12.0-15.0) g/dL Hct 35.8 L (37.0-47.0) % MCV 83.6 (80-100) fl MCH 24.8 L (26-34) pg MCHC 29.6 L (32-36) g/dl RDW 15.2 H (11.5-14.5) % Plt Count 331 D (150-375) k/mm3 MPV 10.5 H (7.4-10.4) fl Immature Gran % (Auto) 0.2 (0-0.5) % Neut % (Auto) 49.8 (45.5-73.1) % Lymph % (Auto) 38.6 (18.3-44.2) % Keith % (Auto) 8.6 H (2.6-8.5) % Eos % (Auto) 2.5 (0-4.4) % Baso % (Auto) 0.3 (0.2-1.2) % Lymph # (Auto) 2.48 (0.9-3.2) K/mm3 Keith # (Auto) 0.6 (0.1-0.6) K/mm3 Eos # (Auto) 0.2 (0-0.3) K/mm3 Baso # (Auto) 0.0 (0.0-0.1) K/mm3 Abs Immat Gran (auto) 0.01 (0.00-0.031) K/mm3 Absolute Neuts (auto) 3.2 (1.3-6.7) K/mm3 Absolute Nucleated RBC 0.000 (0.0-0.012) K/mm3 Band Neutrophils % 0 (0-6) % Nucleated RBC % 0.0 (0.0-0.2) % Platelet Estimate Adequate (Adequate) Ovalocytes 1+ Schistocytes None seen Sodium 135 L (137-145) mmol/L Potassium 5.4 H (3.4-5.0) mmol/L Chloride 104 (98-107) mmol/L Carbon Dioxide 25 (22-30) mmol/L Anion Gap 6 (4-12) mmol/L BUN 20 H (7-17) mg/dL Creatinine 0.53 L (0.7-1.0) mg/dL Estim Creat Clear Calc 59 ml/min Estimated GFR > 60 (59 - ) Glucose 90 (65-110) mg/dL Calcium 9.6 (8.4-10.2) mg/dL Total Bilirubin 0.4 (0.2-1.3) mg/dL AST 29 (14-36) U/L ALT 17 (6-35) U/L Alkaline Phosphatase 90 (38-126) U/L Total Protein 7.9 (6.3-8.2) g/dL Albumin 4.2 (3.5-5.1) g/dL Influenza A (RT-PCR) Negative (Negative) Influenza B (RT-PCR) Negative (Negative) RSV (RT-PCR) Negative (Negative) SARS-CoV-2 RNA (RT-PCR) Negative (Negative) Imaging Data Attestation: I personally reviewed and interpreted this imaging study as follows: My impression: No acute intrathoracic process on my independent interpretation of chest x-ray Radiologist's impression: Impressions Chest X-Ray 03/08/25 05:47 Impression: Clear lungs. Possible COPD. ECG Data EKG #1: Attestation: I personally reviewed and interpreted this ECG as follows: ECG completion date: 03/08/25 ECG completion time: 02:27 Interpretation: Normal sinus rhythm at a rate of 82 beats per minute. FL interval 168. QRS 67. QT/QTC 359/421. Good R-wave progression across the precordial leads. No T- wave inversions. Pre populated algorithm suggests ST-elevation in inferior leads however on my interpretation this is not present thus I disagree. Discharge Plan Discharge Clinical Impression: Normocytic anemia, Hyperkalemia Patient Disposition: [place] Shelter/Asst Living Condition: Stable Instructions: Antibiotic Form, Hyperkalemia (ED), Anemia (ED) Additional Instructions: Patient was not in any respiratory distress during the entirety of her time in the emergency department. She had normal vital signs throughout. Chest x-ray without acute process. Her anemia is stable from previous. She had a mildly elevated potassium level however we intervened by giving a combination of medications for this. She tested negative for COVID, influenza a, influenza B, and RSV. Patient can follow-up with her primary care provider/facility medical affairs specialist. Return to the emergency department any new or worsening symptoms. Patient Language: Welsh Prescriptions: No Action aspirin 81 mg tablet,chewable 81 mg feeding tube DAILY atorvastatin 80 mg tablet 80 mg feeding tube HS cholecalciferol (vitamin D3) 25 mcg (1,000 unit) capsule 25 mcg feeding tube DAILY famotidine 20 mg tablet 20 mg feeding tube BID carvedilol 6.25 mg tablet 6.25 mg feeding tube BID magnesium citrate Solution 300 ml feeding tube DAILY PRN (Reason: Constipation) Rx Instructions: give per peg in am as needed for constipation if no results after enema ferrous sulfate 220 mg (44 mg iron)/5 mL Elixir 330 mg feeding tube BID Ventolin HFA 2 puff inhalation PRN PRN (Reason: Wheezing) acetaminophen 650 mg feeding tube Q4H PRN (Reason: Pain (Scale Score 1-3)/fever) ascorbic acid (vitamin C) [Vitamin C] 500 mg tablet 500 mg feeding tube DAILY vancomycin 1,000 mg Recon Soln 125 mg feeding tube Q6HR 5 Days Qty: 20 0RF cefuroxime axetil 250 mg Tablet 500 mg feeding tube Q12HR 4 Days Qty: 16 0RF midodrine 10 mg Tablet 5 mg feeding tube TID 7 Days Qty: 11 0RF ondansetron HCl [Zofran] 4 mg Tablet 4 mg feeding tube Q6H PRN (Reason: Nausea And Vomiting) ezetimibe 10 mg tablet 10 mg feeding tube .every bedtime Rx Instructions: 10mg every bedtime lisinopril 5 mg tablet 5 mg feeding tube DAILY silver sulfadiazine 1 % cream 1 applic TOPICAL DAILY Rx Instructions: APPLY TO LOWER ABDOMEN TOPICALLY EVERY DAY FOR WOUND CARE. CLEANSE WITH WC/NS. APPLY SSD COLLAGEN POWDER CALCIUM ALGINATE AND COVER WITH [place] DRESSING. bisacodyl 10 mg suppository 10 mg RECTAL DAILY PRN (Reason: constipation) Rx Instructions: INSERT 1 SUPPOSITORY RECTALLY NEEDED FOR CONSTIPATION DAILY IF NO RESULTS FOR MOM. Fleet Enema 19-7 gram/118 mL enema 118 ml RECTAL DAILY PRN (Reason: constipation) Rx Instructions: INSERT 1 APPLICATION RECTALLY NEEDED FOR CONSTIPATION IF NO RESULTS 1 DAY AFTER SUPPOSITORY. Follow-up/Referrals: Sherrie,Monalisa Snowden MD [Primary Care Provider] - Stand Alone Forms: Long Term Discharge Time of Disposition: 06:43
[2025-03-08 05:28] LABS: Hematocrit 35.8 % (37.0-47.0); Hemoglobin 10.6 g/dL (12.0-15.0); Immature Granulocyte Percent A 0.2 % (0-0.5); Lymphocytes Absolute Auto 2.48 K/mm3 (0.9-3.2); Mean Corpuscular HGB Conc 29.6 g/dl (32-36); Mean Corpuscular Hemoglobin 24.8 pg (26-34); Mean Corpuscular Volume 83.6 fl (80-100); Nucleated Red Blood Cells Absolute Auto 0.000 K/mm3 (0.0-0.012); Nucleated Red Blood Cells Perc 0.0 % (0.0-0.2); Platelet Count Result 331 k/mm3 (150-375); Red Blood Count 4.28 M/mm3 (4.2-5.4); White Blood Count 6.4 K/mm3 (4.5-10.0)
[2025-03-08 05:32] LABS: Alanine Aminotransferase 17 U/L (6-35); Albumin Level 4.2 g/dL (3.5-5.1); Alkaline Phosphatase 90 U/L (38-126); Anion Gap 6 mmol/L (4-12); Aspartate Amino Transferase 29 U/L (14-36); Bilirubin,Total 0.4 mg/dL (0.2-1.3); Blood Urea Nitrogen 20 mg/dL (7-17); Calcium 9.6 mg/dL (8.4-10.2); Carbon Dioxide 25 mmol/L (22-30); Chloride 104 mmol/L (98-107); Estimated CRCL calculation 59 ml/min; Estimated Glomerular Filt Rate > 60; Glucose 90 mg/dL (65-110); Potassium 5.4 mmol/L (3.4-5.0); Sodium 135 mmol/L (137-145); Total Protein 7.9 g/dL (6.3-8.2)
[2025-03-08 05:43] LABS: Band Neutrophils Percent 0 % (0-6); Ovalocytes 1+; Schistocytes None Seen
[2025-03-08 05:45] LABS: Influenza A QL RT-PCR Negative (Negative); Influenza B QL RT-PCR Negative (Negative); RSV RNA, RT-PCR Negative (Negative); SARS-CoV-2 RNA PCR Negative (Negative)
[2025-03-08] MEDS: FUROSEMIDE 20 MG TABLET FEED TUBE (07:11)
[2025-03-08] MEDS: CALCIUM CARBONATE (TUMS) 500 MG (200 MG ELEMENTAL) FEED TUBE (07:11)
[2025-03-08] MEDS: ALBUTEROL SULFATE NEB 2.5 MG/3 ML INH INHALATION (07:28)
--- NOTE | 2025-03-08 10:14 | PCRCNOTE ---
Updraft treatment delayed due to RT not aware of order.
== END 2025-03-08 08:20 ==
PROVIDERS: Emergency Provider Student in an Organized Health Care Education/Training Program; PCP Internal Medicine
DX: E87.5 Hyperkalemia (principal); D64.9 Anemia, unspecified; Z20.822 Contact with and (suspected) exposure to COVID-19; I69.251 Hemiplegia and hemiparesis following other nontraumatic intracranial hemorrhage affecting right dominant side; I69.291 Dysphagia following other nontraumatic intracranial hemorrhage; I69.220 Aphasia following other nontraumatic intracranial hemorrhage; R13.10 Dysphagia, unspecified; I10 Essential (primary) hypertension; K21.00 Gastro-esophageal reflux disease with esophagitis, without bleeding; J44.9 Chronic obstructive pulmonary disease, unspecified; E78.5 Hyperlipidemia, unspecified; Z93.1 Gastrostomy status; Z79.82 Long term (current) use of aspirin; Z79.899 Other long term (current) drug therapy; R94.31 Abnormal electrocardiogram [ECG] [EKG]
CPT/HCPCS: 36415; 71046; 80053; 85025; 87637; 93005; 94640; 99284; A9270

== ENCOUNTER 2025-03-09 20:58 | Emergency (ER) | payer MEDICARE, MEDICAID, SELFPAY ==
--- NOTE | ~2025-03-09 | XR_ITS ---
Exam: Abdomen 1V HISTORY: g tube re-insert COMPARISON: 01/01/2025 TECHNIQUE: Supine images of the lower chest and upper abdomen FINDINGS: Pigtail catheter extends into the upper abdomen, likely within the distal stomach. Oral contrast opacifies the stomach and proximal small bowel without incident. Proximal stomach is air opacified, an interval change from prior replacement examination. IMPRESSION: Pigtail catheter in good position and ready for immediate use. Reviewed, dictated and finalized at location A.
[2025-03-09 21:02] VITALS: BP 97/54; PULSE 72; RESP 12; TEMP 35.9; O2SAT 99
--- NOTE | 2025-03-09 21:12 | ED_ITS ---
HPI - General Adult General Chief complaint: Unspecified Stated complaint: g tube pulled out Time Seen by Provider: 03/09/25 21:02 History of Present Illness HPI narrative: 64-year-old patient presenting from senior living facility for displaced G- tube. Patient is nonverbal due to stroke, contracted. She has a feeding tube 16 Ecuadorean placed that was dislodged sometime today. Feeding tube present at bedside with balloon intact. Patient is not any acute distress. Not able to provide meaningful collateral information and report given by EMS and nursing staff at the facility. No traumatic injuries. G-tube is chronic and most recent replaced in December here at this facility. Related Data Home Medications ?Medication ?Instructions ?Recorded ?Confirmed ?Last Taken ?Type aspirin 81 mg chewable tablet 81 mg feeding tube DAILY 01/16/21 12/21/24 Unknown History atorvastatin 80 mg tablet 80 mg feeding tube HS 01/16/21 12/21/24 Unknown History cholecalciferol (vitamin D3) 25 25 mcg feeding tube DAILY 01/16/21 12/21/24 Unknown History mcg (1,000 unit) capsule famotidine 20 mg tablet 20 mg feeding tube BID 01/16/21 12/21/24 Unknown History ondansetron HCl 4 mg tablet 4 mg feeding tube Q6H PRN Nausea 05/06/21 12/21/24 Unknown History (Zofran) And Vomiting Ventolin HFA 2 puff inhalation PRN PRN Wheezing 01/23/23 12/21/24 Unknown History acetaminophen 650 mg feeding tube Q4H PRN Pain 01/23/23 12/21/24 Unknown History (Scale Score 1-3)/fever ascorbic acid (vitamin C) 500 mg 500 mg feeding tube DAILY 01/23/23 12/21/24 Unknown History tablet (Vitamin C) carvedilol 6.25 mg tablet 6.25 mg feeding tube BID 01/23/23 12/21/24 Unknown History ferrous sulfate 220 mg (44 mg 330 mg feeding tube BID 01/23/23 12/21/24 Unknown History iron)/5 mL oral elixir magnesium citrate 300 ml feeding tube DAILY PRN 01/23/23 12/21/24 Unknown History Constipation bisacodyl 10 mg rectal suppository 10 mg RECTAL DAILY PRN constipation 09/11/24 12/21/24 Unknown History ezetimibe 10 mg tablet 10 mg feeding tube .every bedtime 09/11/24 12/21/24 Unknown History lisinopril 5 mg tablet 5 mg feeding tube DAILY 09/11/24 12/21/24 Unknown History silver sulfadiazine 1 % topical 1 applic topical DAILY 09/11/24 12/21/24 Unknown History cream sodium phosphates 19 gram-7 118 ml RECTAL DAILY PRN 09/11/24 12/21/24 Unknown History gram/118 mL enema (Fleet Enema) constipation Allergies Allergy/AdvReac Type Severity Reaction Status Date / Time No Known Allergies Allergy Verified 09/11/24 15:34 Review of Systems Review of Systems: As reviewed above in [facility] Past Medical History Medical History Cognitive communication deficit Dysphagia, oropharyngeal phase Right upper quadrant abdominal abscess History of acute cholecystitis Chronic anemia Dyslipidemia Chronic obstructive pulmonary disease Cerebrovascular accident complicated by intracranial hemorrhage with resultant right-sided weakness, dysphagia, and expressive aphasia Reflux esophagitis High cholesterol Hypertension Depression Surgical History Surgical History History of incision and drainage History of insertion of cholecystostomy tube History of gastrostomy tube placement History of esophagogastroduodenoscopy (EGD) (05/2021) Hiatal hernia and reflux esophagitis History of ankle surgery Family History Family History Other Cancer Cerebrovascular accident Diabetes mellitus Heart disease Hypertension Social History Social History Social History: . She has 2 sons. Surrogate medical decision maker: Rudy Ram, son. Code status: FULL CODE. Smoking packs per day: 0.5 Smoking cigarettes per day: 10.0 Smoking status: Unknown if ever smoked Alcohol intake: unknown Substance use: unknown Substance use type: does not use Living arrangements: [facility] Additional living arrangements comments: [facility] Additional occupation/education comments: Disabled. 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 Mucous membranes moist. NECK: Supple. CHEST: No respiratory distress HEART: 2+ pulses ABDOMEN: Soft and nondistended, G-tube site is clean dry and intact but no signs of infection or excoriations, bleeding EXTREMITIES: Contracted extremities SKIN: Warm, dry, no rash. NEURO: Makes eye contact, occasionally nods to questions but does not verbalize or follow commands. Nonverbal PSYCH: [Normal mood and affect.] Course Vital Signs Vital signs: Vital Signs Temperature 35.9 C L 03/09/25 21:02 Pulse Rate 72 03/09/25 21:02 Respiratory Rate 12 03/09/25 21:02 Blood Pressure 97/54 L 03/09/25 21:02 Pulse Oximetry 99 03/09/25 21:02 Temperature 35.9 C L 03/09/25 21:02 Pulse Rate 66 03/09/25 21:17 Respiratory Rate 12 03/09/25 21:02 Blood Pressure 97/54 L 03/09/25 21:02 Pulse Oximetry 99 03/09/25 21:02 Procedures Feeding Tube Replacement Feeding Tube #1: Feeding Tube Placement Date: 03/09/25 Feeding Tube Placement Time: 21:47 Type of Tube: gastrostomy Insertion Site Prior to Procedure: clean Tube Used for Reinsertion: other (BS) Ecuadorean Tube Size (F): 16 Balloon size (mL): 5 Verification of Placement: gastrografin injection Tube Secured by: tape/dressing Patient Tolerated Procedure: well and no complications Medical Decision Making MDM Narrative Medical decision making narrative: 64-year-old patient presenting from senior living facility for displaced G- tube. Patient is nonverbal due to stroke, contracted. She has a feeding tube 16 [place]cu[place] placed that was dislodged sometime today. Feeding tube present at bedside with balloon intact. Patient is not any acute distress. Not able to provide meaningful collateral information and report given by EMS and nursing staff at the facility. No traumatic injuries. G-tube is chronic and most recent replaced in December here at this facility. Vital signs are unremarkable. G-tube be replaced with x-rays confirming placement. Will be discharged back to senior living facility upon completion of replacement. Medical Records Medical records reviewed: Yes I reviewed the external patient's medical records. Vital Signs Vital Signs: Vital Signs Temperature 35.9 C L 03/09/25 21:02 Pulse Rate 72 03/09/25 21:02 Respiratory Rate 12 03/09/25 21:02 Blood Pressure 97/54 L 03/09/25 21:02 Pulse Oximetry 99 03/09/25 21:02 Temperature 35.9 C L 03/09/25 21:02 Pulse Rate 66 03/09/25 21:17 Respiratory Rate 12 03/09/25 21:02 Blood Pressure 97/54 L 03/09/25 21:02 Pulse Oximetry 99 03/09/25 21:02 Imaging Data Attestation: I personally reviewed and interpreted this imaging study as follows: My impression: Impressions Abdomen X-Ray 03/09/25 22:24 IMPRESSION: Pigtail catheter in good position and ready for immediate use. Discharge Plan Discharge Clinical Impression: Dislodged gastrostomy tube Patient Disposition: [facility] Residential/Asst Living Condition: Stable Instructions: Antibiotic Form Patient Language: Kinyarwanda Prescriptions: No Action aspirin 81 mg tablet,chewable 81 mg feeding tube DAILY atorvastatin 80 mg tablet 80 mg feeding tube HS cholecalciferol (vitamin D3) 25 mcg (1,000 unit) capsule 25 mcg feeding tube DAILY famotidine 20 mg tablet 20 mg feeding tube BID carvedilol 6.25 mg tablet 6.25 mg feeding tube BID magnesium citrate Solution 300 ml feeding tube DAILY PRN (Reason: Constipation) Rx Instructions: give per peg in am as needed for constipation if no results after enema ferrous sulfate 220 mg (44 mg iron)/5 mL Elixir 330 mg feeding tube BID Ventolin HFA 2 puff inhalation PRN PRN (Reason: Wheezing) acetaminophen 650 mg feeding tube Q4H PRN (Reason: Pain (Scale Score 1-3)/fever) ascorbic acid (vitamin C) [Vitamin C] 500 mg tablet 500 mg feeding tube DAILY vancomycin 1,000 mg Recon Soln 125 mg feeding tube Q6HR 5 Days Qty: 20 0RF cefuroxime axetil 250 mg Tablet 500 mg feeding tube Q12HR 4 Days Qty: 16 0RF midodrine 10 mg Tablet 5 mg feeding tube TID 7 Days Qty: 11 0RF ondansetron HCl [Zofran] 4 mg Tablet 4 mg feeding tube Q6H PRN (Reason: Nausea And Vomiting) ezetimibe 10 mg tablet 10 mg feeding tube .every bedtime Rx Instructions: 10mg every bedtime lisinopril 5 mg tablet 5 mg feeding tube DAILY silver sulfadiazine 1 % cream 1 applic TOPICAL DAILY Rx Instructions: APPLY TO LOWER ABDOMEN TOPICALLY EVERY DAY FOR WOUND CARE. CLEANSE WITH WC/NS. APPLY SSD COLLAGEN POWDER CALCIUM ALGINATE AND COVER WITH [place] DRESSING. bisacodyl 10 mg suppository 10 mg RECTAL DAILY PRN (Reason: constipation) Rx Instructions: INSERT 1 SUPPOSITORY RECTALLY NEEDED FOR CONSTIPATION DAILY IF NO RESULTS FOR MOM. Fleet Enema 19-7 gram/118 mL enema 118 ml RECTAL DAILY PRN (Reason: constipation) Rx Instructions: INSERT 1 APPLICATION RECTALLY NEEDED FOR CONSTIPATION IF NO RESULTS 1 DAY AFTER SUPPOSITORY. Follow-up/Referrals: Sherrie,Monalisa Snowden MD [Primary Care Provider] - Stand Alone Forms: [facility] Discharge Time of Disposition: 22:35
--- OUTSIDE RECORDS SUMMARY | 2025-03-09 21:14 | XMS_ITS | Clinical Summary ---
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 S/b major account representative. OP regimen is Glucerna 360mL QID with 180mL FWF with each feed. Resumed TF and tolerated. Assessment & Plan (01/27/2021 3:35 PM CDT): -Initially Keep NPO for possible procedure, TF orders placed on hold. S/b major account representative. OP regimen is Glucerna 360mL QID with 180mL FWF with each feed. Resumed and tolerated. Assessment & Plan (01/26/2021 12:51 PM CDT): -Initially Keep NPO for possible procedure, TF orders placed on hold. S/b major account representative. -OP regimen is Glucerna 360mL QID with 180mL FWF with each feed. -Resume as tolerated. Assessment & Plan (01/25/2021 11:37 AM CDT): -Keep NPO for possible procedure, TF orders placed on hold. S/b major account representative. -OP regimen is Glucerna 360mL QID with [...] bloody output from drain and transferred to [facility] for further management. -Initial OSH CT [...] bloody output from drain and transferred to [facility] for further management. -Initial OSH CT [...] bloody output from drain and transferred to [facility] for further management. -Initial OSH CT [...] bloody output from drain and transferred to [facility] for further management. -Initial OSH CT [...] bloody output from drain and transferred to [facility] for further management. -Initial OSH CT [...] Advance Directives For more information, please contact: [phone] * Full Code (Latest Code Status on File) Date Activated Date Inactivated Comments 10/20/2024 3:06 AM 10/25/2024 10:26 PM * Full Code Date Activated Date Inactivated Comments 01/24/2021 9:08 PM 01/29/2021 5:17 PM Care Teams Brand Inspector Relationship Specialty Start Date End Date Unknown, Notinfile PCP - General 01/24/21
--- OUTSIDE RECORDS SUMMARY | 2025-03-09 21:14 | XMS_ITS | Clinical Summary ---
Author Organization [facility] Address [address] [place] [address] Care Team Providers Care Well Drill Operator Cable Tool Name Role Phone Monalisa Balderas MD Primary Care Provider Source Comments [facility],non-owned Affiliates and Associated Physician Practices is amultiple site organization consisting of ambulatory clinics and hospital sitesin [place], [place], [place] and [place]. This disclosure is being madepursuant to the Care Everywhere program and may not contain all information available regarding this patient. Last updated 18.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 MEDICAID - [place] Advance Directives * Full Code (Latest Code Status on File) Date Activated Date Inactivated Comments 10/27/2021 7:50 AM 10/31/2021 3:10 PM * Full Code Date Activated Date Inactivated Comments 06/23/2021 1:24 PM 06/30/2021 7:20 PM * Full Code Date Activated Date Inactivated Comments 05/15/2021 5:48 PM 05/22/2021 7:52 PM Care Teams Well Drill Operator Cable Tool Relationship Specialty Start Date End Date Monalisa Balderas MD [address] [place] [address] [place] [id number] PCP - General Internal Medicine 05/15/21
--- OUTSIDE RECORDS SUMMARY | 2025-03-09 21:14 | XMS_ITS | Clinical Summary ---
Author Organization [facility] Address [address] [place] [address] Care Team Providers Care Protozoologist Name Role Phone None, Provider MD Primary Care Provider Unavaila ble Allergies No known active allergies Medications budesonide-form oterol 80-4.5 MCG/ACT inhaler Inhale 2 puffs into the lungs 2 (two) times daily. Active albuterol sulfate HFA 108 (90 Base) MCG/ACT inhaler Inhale 2 puffs into the lungs every 6 (six) hours as needed for Wheezing. Active clonazePAM 0.5 MG tabletIndicatio ns:G tube feedings ([facility]) 1 tablet (0.5 mg total) by [...] transitions and discharge planning General Connie Caro, LITHOGRAPHIC PRESS OPERATOR Medical Devices Implanted Type Area Senior Environmental Technician Device Identifier Shelf Expiration Date Model / Serial / Lot Peg Kit 24fr Push- Non-Safety - [id number] Implanted:Qt y: 1 on 11/20/2020 by Dank Damian MD at [facility] Tube Implant N/A: Abdomen [employer] [id number] 07/11/2021 [id number] / / [id number] [place] [address] [place] [address] MEDICAID MEDICARE Advance Directives Documents on File Type Date Recorded 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
[2025-03-09 21:17] VITALS: PULSE 66
--- NOTE | 2025-03-09 23:00 | PC.NURSE ---
Update/report called to Bhavya BEASLEY at [facility]
[2025-03-09 23:03] VITALS: BP 104/68; PULSE 82; RESP 18; O2SAT 100
[2025-03-10 00:16] VITALS: BP 116/65; PULSE 81; RESP 17; O2SAT 97
[2025-03-10 00:22] VITALS: BP 116/65; PULSE 81; RESP 17; O2SAT 97
== END 2025-03-10 00:24 ==
PROVIDERS: Emergency Provider Student in an Organized Health Care Education/Training Program; PCP Internal Medicine
DX: Z43.1 Encounter for attention to gastrostomy (principal); I69.320 Aphasia following cerebral infarction; Z79.82 Long term (current) use of aspirin; E78.49 Other hyperlipidemia; I10 Essential (primary) hypertension; J44.9 Chronic obstructive pulmonary disease, unspecified; E78.00 Pure hypercholesterolemia, unspecified; F32.A Depression, unspecified
CPT/HCPCS: 43762; 99283

== ENCOUNTER 2025-05-07 06:22 | Emergency (ER) | payer MEDICARE, MEDICAID, SELFPAY ==
[2025-05-07] VITALS (10 sets, daily range): BP systolic 104–144; BP diastolic 73–81; PULSE 72–97; RESP 16–28; TEMP 36.6; O2SAT 96–100
--- NOTE | ~2025-05-07 | XR_ITS ---
Examination: XR chest 1V portable Clinical History: cough Comparison: 03/08/2025 Technique: Portable AP Findings: Heart size normal. Lungs clear. No acute bony abnormality. IMPRESSION: 1. No acute cardiopulmonary findings given portable technique. Reviewed, dictated and finalized at location R.
[2025-05-07] MEDS: SODIUM CHLORIDE 0.9% IV 1,000 ML 999 ML IV CONT (07:45)
[2025-05-07 07:59] LABS: Hematocrit 39.6 % (37.0-47.0); Hemoglobin 12.5 g/dL (12.0-15.0); Immature Granulocyte Percent A 0.4 % (0-0.5); Lymphocytes Absolute Auto 2.12 K/mm3 (0.9-3.2); Mean Corpuscular HGB Conc 31.6 g/dl (32-36); Mean Corpuscular Hemoglobin 24.6 pg (26-34); Mean Corpuscular Volume 77.8 fl (80-100); Nucleated Red Blood Cells Absolute Auto 0.000 K/mm3 (0.0-0.012); Nucleated Red Blood Cells Perc 0.0 % (0.0-0.2); Platelet Count Result 346 k/mm3 (150-375); Red Blood Count 5.09 M/mm3 (4.2-5.4); White Blood Count 13.6 K/mm3 (4.5-10.0)
[2025-05-07 08:19] LABS: Alanine Aminotransferase 23 U/L (6-35); Albumin Level 4.2 g/dL (3.5-5.1); Alkaline Phosphatase 116 U/L (38-126); Anion Gap 10 mmol/L (4-12); Aspartate Amino Transferase 25 U/L (14-36); Bilirubin,Total 0.5 mg/dL (0.2-1.3); Blood Urea Nitrogen 20 mg/dL (7-17); Calcium 9.6 mg/dL (8.4-10.2); Carbon Dioxide 27 mmol/L (22-30); Chloride 102 mmol/L (98-107); Estimated CRCL calculation 78 ml/min; Estimated Glomerular Filt Rate > 60; Glucose 128 mg/dL (65-110); Lipase 92 U/L (23-300); Potassium 3.8 mmol/L (3.4-5.0); Sodium 139 mmol/L (137-145); Total Protein 8.4 g/dL (6.3-8.2)
--- NOTE | 2025-05-07 10:17 | ED.GENADULT ---
HPI - General Adult General Chief complaint: Nausea/Vomiting/Diarrhea Stated complaint: ?aspirated Time Seen by Provider: 05/07/25 07:04 History of Present Illness HPI narrative: Patient is a 65-year-old female who presents ER for possible aspiration. Patient had emesis today at her nursing facility in the thinks she may have inhaled some. Patient is nonverbal and in no distress. She is not on any oxygen. Related Data Home Medications ?Medication ?Instructions ?Recorded ?Confirmed ?Last Taken ?Type aspirin 81 mg chewable tablet 81 mg feeding tube DAILY 01/16/21 12/21/24 Unknown History atorvastatin 80 mg tablet 80 mg feeding tube HS 01/16/21 12/21/24 Unknown History cholecalciferol (vitamin D3) 25 25 mcg feeding tube DAILY 01/16/21 12/21/24 Unknown History mcg (1,000 unit) capsule famotidine 20 mg tablet 20 mg feeding tube BID 01/16/21 12/21/24 Unknown History ondansetron HCl 4 mg tablet 4 mg feeding tube Q6H PRN Nausea 05/06/21 12/21/24 Unknown History (Zofran) And Vomiting Ventolin HFA 2 puff inhalation PRN PRN Wheezing 01/23/23 12/21/24 Unknown History acetaminophen 650 mg feeding tube Q4H PRN Pain 01/23/23 12/21/24 Unknown History (Scale Score 1-3)/fever ascorbic acid (vitamin C) 500 mg 500 mg feeding tube DAILY 01/23/23 12/21/24 Unknown History tablet (Vitamin C) carvedilol 6.25 mg tablet 6.25 mg feeding tube BID 01/23/23 12/21/24 Unknown History ferrous sulfate 220 mg (44 mg 330 mg feeding tube BID 01/23/23 12/21/24 Unknown History iron)/5 mL oral elixir magnesium citrate 300 ml feeding tube DAILY PRN 01/23/23 12/21/24 Unknown History Constipation bisacodyl 10 mg rectal suppository 10 mg RECTAL DAILY PRN constipation 09/11/24 12/21/24 Unknown History ezetimibe 10 mg tablet 10 mg feeding tube .every bedtime 09/11/24 12/21/24 Unknown History lisinopril 5 mg tablet 5 mg feeding tube DAILY 09/11/24 12/21/24 Unknown History silver sulfadiazine 1 % topical 1 applic topical DAILY 09/11/24 12/21/24 Unknown History cream sodium phosphates 19 gram-7 118 ml RECTAL DAILY PRN 09/11/24 12/21/24 Unknown History gram/118 mL enema (Fleet Enema) constipation Allergies Allergy/AdvReac Type Severity Reaction Status Date / Time No Known Allergies Allergy Verified 09/11/24 15:34 Review of Systems Review of Systems: ROS unobtainable: Yes unobtainable due to medical condition PMFSH Past Medical History Medical History Cognitive communication deficit Dysphagia, oropharyngeal phase Right upper quadrant abdominal abscess History of acute cholecystitis Chronic anemia Dyslipidemia Chronic obstructive pulmonary disease Cerebrovascular accident complicated by intracranial hemorrhage with resultant right-sided weakness, dysphagia, and expressive aphasia Reflux esophagitis High cholesterol Hypertension Depression Surgical History Surgical History History of incision and drainage History of insertion of cholecystostomy tube History of gastrostomy tube placement History of esophagogastroduodenoscopy (EGD) (05/2021) Hiatal hernia and reflux esophagitis History of ankle surgery Family History Family History Other Cancer Cerebrovascular accident Diabetes mellitus Heart disease Hypertension Social History Social History Social History: . She has 2 sons. Surrogate medical decision maker: Rudy Ram, son. Code status: FULL CODE. 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 HEAD: Normocephalic, atraumatic. ENT: Mucous membranes moist. NECK: Supple. CHEST: Faint rhonchi on the right. No respiratory distress. HEART: Regular rate and rhythm. Normal peripheral pulses. ABDOMEN: Soft, nontender, nondistended. EXTREMITIES: Normal range of motion. No edema. SKIN: Warm, dry, no rash. NEURO: Alert and oriented x3. PSYCH: Normal mood and affect. Course Course Emergency Course: Prolonged observation without hypoxia. Nebulizer treatment also given to help with the rhonchi that was initially heard. Appropriate for discharge home. No pneumonia on x-ray. White count [address] which may be reactive from vomiting. We will put patient on prophylactic antibiotic in case there was a bit of aspirate that we cannot detect. 97% on room air. Vital Signs Vital signs: Vital Signs Temperature 98 F 05/07/25 06:24 Pulse Rate 97 05/07/25 06:24 Respiratory Rate 28 H 05/07/25 06:24 Blood Pressure 122/73 05/07/25 06:24 Pulse Oximetry 100 05/07/25 06:24 Oxygen Delivery Room Air 05/07/25 06:24 Temperature 98 F 05/07/25 06:24 Pulse Rate 94 05/07/25 10:35 Respiratory Rate 19 05/07/25 10:35 Blood Pressure 122/73 05/07/25 06:24 Pulse Oximetry 100 05/07/25 06:24 Oxygen Delivery Room Air 05/07/25 06:24 Medical Decision Making Vital Signs Vital Signs: Vital Signs Temperature 98 F 05/07/25 06:24 Pulse Rate 97 05/07/25 06:24 Respiratory Rate 28 H 05/07/25 06:24 Blood Pressure 122/73 05/07/25 06:24 Pulse Oximetry 100 05/07/25 06:24 Oxygen Delivery Room Air 05/07/25 06:24 Temperature 98 F 05/07/25 06:24 Pulse Rate 94 05/07/25 10:35 Respiratory Rate 19 05/07/25 10:35 Blood Pressure 122/73 05/07/25 06:24 Pulse Oximetry 100 05/07/25 06:24 Oxygen Delivery Room Air 05/07/25 06:24 Lab Data 05/07/25 07:55 05/07/25 07:55 Labs: Lab Results 05/07/25 Range/Units 07:55 WBC 13.6 H (4.5-10.0) K/mm3 RBC 5.09 (4.2-5.4) M/mm3 Hgb 12.5 (12.0-15.0) g/dL Hct 39.6 (37.0-47.0) % MCV 77.8 L (80-100) fl MCH 24.6 L (26-34) pg MCHC 31.6 L (32-36) g/dl RDW 15.0 H (11.5-14.5) % Plt Count 346 (150-375) k/mm3 MPV 9.9 (7.4-10.4) fl Immature Gran % (Auto) 0.4 (0-0.5) % Neut % (Auto) 78.1 H (45.5-73.1) % Lymph % (Auto) 15.6 L (18.3-44.2) % [place] % (Auto) 5.4 (2.6-8.5) % Eos % (Auto) 0.3 (0-4.4) % Baso % (Auto) 0.2 (0.2-1.2) % Lymph # (Auto) 2.12 (0.9-3.2) K/mm3 [place] # (Auto) 0.7 H (0.1-0.6) K/mm3 Eos # (Auto) 0.0 (0-0.3) K/mm3 Baso # (Auto) 0.0 (0.0-0.1) K/mm3 Abs Immat Gran (auto) 0.05 H (0.00-0.031) K/mm3 Absolute Neuts (auto) 10.6 H (1.3-6.7) K/mm3 Absolute Nucleated RBC 0.000 (0.0-0.012) K/mm3 Nucleated RBC % 0.0 (0.0-0.2) % Sodium 139 (137-145) mmol/L Potassium 3.8 (3.4-5.0) mmol/L Chloride 102 (98-107) mmol/L Carbon Dioxide 27 (22-30) mmol/L Anion Gap 10 (4-12) mmol/L BUN 20 H (7-17) mg/dL Creatinine 0.42 L (0.7-1.0) mg/dL Estim Creat Clear Calc 78 ml/min Estimated GFR > 60 (59 - ) Glucose 128 H (65-110) mg/dL Lactic Acid 1.2 (0.7-2.0) mmol/L Calcium 9.6 (8.4-10.2) mg/dL Total Bilirubin 0.5 (0.2-1.3) mg/dL AST 25 (14-36) U/L ALT 23 (6-35) U/L Alkaline Phosphatase 116 (38-126) U/L Total Protein 8.4 H (6.3-8.2) g/dL Albumin 4.2 (3.5-5.1) g/dL Lipase 92 (23-300) U/L Imaging Data Radiologist's impression: ITS Impressions Chest X-Ray 05/07/25 07:59 IMPRESSION: 1. No acute cardiopulmonary findings given portable technique. Discharge Plan Discharge Clinical Impression: Vomiting, Aspiration into airway Patient Disposition: Home Condition: Stable Instructions: Antibiotic Form, Acute Nausea and Vomiting (ED), Aspiration Precautions (ED) Additional Instructions: There is no evidence of pneumonia on your x-ray, you had no hypoxia. He will be started on antibiotics out of caution in case he did experience aspiration. Return to the ER if you have difficulty breathing, you have a decreased oxygen saturation, or you have additional concerns. Patient Language: Tajik Prescriptions: New doxycycline hyclate 100 mg tablet 100 mg feeding tube BID Qty: 10 0RF amoxicillin-pot clavulanate 875-125 mg tablet 1 tablet feeding tube Q12H Qty: 10 0RF No Action aspirin 81 mg tablet,chewable 81 mg feeding tube DAILY atorvastatin 80 mg tablet 80 mg feeding tube HS cholecalciferol (vitamin D3) 25 mcg (1,000 unit) capsule 25 mcg feeding tube DAILY famotidine 20 mg tablet 20 mg feeding tube BID carvedilol 6.25 mg tablet 6.25 mg feeding tube BID magnesium citrate Solution 300 ml feeding tube DAILY PRN (Reason: Constipation) Rx Instructions: give per peg in am as needed for constipation if no results after enema ferrous sulfate 220 mg (44 mg iron)/5 mL Elixir 330 mg feeding tube BID Ventolin HFA 2 puff inhalation PRN PRN (Reason: Wheezing) acetaminophen 650 mg feeding tube Q4H PRN (Reason: Pain (Scale Score 1-3)/fever) ascorbic acid (vitamin C) [Vitamin C] 500 mg tablet 500 mg feeding tube DAILY vancomycin 1,000 mg Recon Soln 125 mg feeding tube Q6HR 5 Days Qty: 20 0RF cefuroxime axetil 250 mg Tablet 500 mg feeding tube Q12HR 4 Days Qty: 16 0RF midodrine 10 mg Tablet 5 mg feeding tube TID 7 Days Qty: 11 0RF ondansetron HCl [Zofran] 4 mg Tablet 4 mg feeding tube Q6H PRN (Reason: Nausea And Vomiting) ezetimibe 10 mg tablet 10 mg feeding tube .every bedtime Rx Instructions: 10mg every bedtime lisinopril 5 mg tablet 5 mg feeding tube DAILY silver sulfadiazine 1 % cream 1 applic TOPICAL DAILY Rx Instructions: APPLY TO LOWER ABDOMEN TOPICALLY EVERY DAY FOR WOUND CARE. CLEANSE WITH WC/NS. APPLY SSD COLLAGEN POWDER CALCIUM ALGINATE AND COVER WITH [place] DRESSING. bisacodyl 10 mg suppository 10 mg RECTAL DAILY PRN (Reason: constipation) Rx Instructions: INSERT 1 SUPPOSITORY RECTALLY NEEDED FOR CONSTIPATION DAILY IF NO RESULTS FOR MOM. Fleet Enema 19-7 gram/118 mL enema 118 ml RECTAL DAILY PRN (Reason: constipation) Rx Instructions: INSERT 1 APPLICATION RECTALLY NEEDED FOR CONSTIPATION IF NO RESULTS 1 DAY AFTER SUPPOSITORY. Follow-up/Referrals: Sherrie,Monalisa Snowden MD [Primary Care Provider] - 1 Week
[2025-05-07] MEDS: IPRATROPIUM 0.5 MG/ALBUTEROL SULFATE 2.5 MG (BASE) AMPUL.NEB 3 ML INHALATION (10:25)
== END 2025-05-07 15:00 ==
PROVIDERS: Emergency Provider Emergency Medicine; PCP Internal Medicine
DX: T17.918A Gastric contents in respiratory tract, part unspecified causing other injury, initial encounter (principal); R11.10 Vomiting, unspecified; I69.991 Dysphagia following unspecified cerebrovascular disease; R13.10 Dysphagia, unspecified; I69.920 Aphasia following unspecified cerebrovascular disease; I69.951 Hemiplegia and hemiparesis following unspecified cerebrovascular disease affecting right dominant side; I10 Essential (primary) hypertension; E78.00 Pure hypercholesterolemia, unspecified; J44.9 Chronic obstructive pulmonary disease, unspecified; D64.9 Anemia, unspecified; K21.00 Gastro-esophageal reflux disease with esophagitis, without bleeding; F32.A Depression, unspecified; Z79.82 Long term (current) use of aspirin; Z79.899 Other long term (current) drug therapy
CPT/HCPCS: 36415; 71045; 80053; 83605; 83690; 85025; 94640; 96360; 99283; J7030

== ENCOUNTER 2025-06-09 10:37 | Emergency (ER) | payer MEDICARE, MEDICAID, SELFPAY ==
--- NOTE | ~2025-06-09 | XR_ITS ---
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 Technique: 3 view. Findings: There is contrast within the stomach and small bowel. No dilated bowel loops appreciated. No free air. No abnormal calcifications No acute osseous abnormality. Impression: 1. Feeding tube in appropriate location Reviewed, dictated and finalized at location P. ATIONAL INSTITUTION CURATOR Impression: 1. Feeding tube in appropriate location
[2025-06-09 10:41] VITALS: PULSE 94; RESP 20; TEMP 36.7; O2SAT 98
--- NOTE | 2025-06-09 11:18 | ED.GENADULT ---
HPI - General Adult General Chief complaint: Unspecified Stated complaint: gtube pulled out Time Seen by Provider: 06/09/25 11:12 Source: EMS Mode of arrival: EMS History of Present Illness HPI narrative: [facility], ambulance, pulled G-tube Patient is nonverbal nonambulatory shakes head for yes and no. Related Data Home Medications ?Medication ?Instructions ?Recorded ?Confirmed ?Last Taken ?Type aspirin 81 mg chewable tablet 81 mg feeding tube DAILY 01/16/21 12/21/24 Unknown History atorvastatin 80 mg tablet 80 mg feeding tube HS 01/16/21 12/21/24 Unknown History cholecalciferol (vitamin D3) 25 25 mcg feeding tube DAILY 01/16/21 12/21/24 Unknown History mcg (1,000 unit) capsule famotidine 20 mg tablet 20 mg feeding tube BID 01/16/21 12/21/24 Unknown History ondansetron HCl 4 mg tablet 4 mg feeding tube Q6H PRN Nausea 05/06/21 12/21/24 Unknown History (Zofran) And Vomiting Ventolin HFA 2 puff inhalation PRN PRN Wheezing 01/23/23 12/21/24 Unknown History acetaminophen 650 mg feeding tube Q4H PRN Pain 01/23/23 12/21/24 Unknown History (Scale Score 1-3)/fever ascorbic acid (vitamin C) 500 mg 500 mg feeding tube DAILY 01/23/23 12/21/24 Unknown History tablet (Vitamin C) carvedilol 6.25 mg tablet 6.25 mg feeding tube BID 01/23/23 12/21/24 Unknown History ferrous sulfate 220 mg (44 mg 330 mg feeding tube BID 01/23/23 12/21/24 Unknown History iron)/5 mL oral elixir magnesium citrate 300 ml feeding tube DAILY PRN 01/23/23 12/21/24 Unknown History Constipation bisacodyl 10 mg rectal suppository 10 mg RECTAL DAILY PRN constipation 09/11/24 12/21/24 Unknown History ezetimibe 10 mg tablet 10 mg feeding tube .every bedtime 09/11/24 12/21/24 Unknown History lisinopril 5 mg tablet 5 mg feeding tube DAILY 09/11/24 12/21/24 Unknown History silver sulfadiazine 1 % topical 1 applic topical DAILY 09/11/24 12/21/24 Unknown History cream sodium phosphates 19 gram-7 118 ml RECTAL DAILY PRN 09/11/24 12/21/24 Unknown History gram/118 mL enema (Fleet Enema) constipation Allergies Allergy/AdvReac Type Severity Reaction Status Date / Time No Known Allergies Allergy Verified 09/11/24 15:34 Review of Systems Review of Systems: ROS unobtainable: Yes unobtainable due to mental status PMFSH Past Medical History Medical History Cognitive communication deficit Dysphagia, oropharyngeal phase Right upper quadrant abdominal abscess History of acute cholecystitis Chronic anemia Dyslipidemia Chronic obstructive pulmonary disease Cerebrovascular accident complicated by intracranial hemorrhage with resultant right-sided weakness, dysphagia, and expressive aphasia Reflux esophagitis High cholesterol Hypertension Depression Surgical History Surgical History History of incision and drainage History of insertion of cholecystostomy tube History of gastrostomy tube placement History of esophagogastroduodenoscopy (EGD) (05/2021) Hiatal hernia and reflux esophagitis History of ankle surgery Family History Family History Other Cancer Cerebrovascular accident Diabetes mellitus Heart disease Hypertension Social History Social History Social History: . She has 2 sons. Surrogate medical decision maker: Rudy Ram, son. Code status: FULL CODE. Smoking packs per day: 0.5 Smoking cigarettes per day: 10.0 Alcohol intake: unknown Substance use: unknown Substance use type: does not use Living arrangements: intermediate Additional living arrangements comments: Mayra Tinajero [facility] Additional occupation/education comments: Disabled. 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 Spiritual care concerns: No (Presybeterian) Exam Narrative: General appearance: Well-developed, well-nourished Chest and respiratory: Airway patent, no respiratory distress, no accessory muscle use Heart: Regular rate/rhythm Abdomen: G tube stoma, showing no discharge, dry blood around Neurologic: Alert nonverbal Course Vital Signs Vital signs: Vital Signs Temperature 36.7 C 06/09/25 10:41 Pulse Rate 94 06/09/25 10:41 Respiratory Rate 20 06/09/25 10:41 Pulse Oximetry 98 06/09/25 10:41 Oxygen Delivery Room Air 06/09/25 10:41 Temperature 36.7 C 06/09/25 10:41 Pulse Rate 79 06/09/25 15:48 Respiratory Rate 18 06/09/25 15:48 Blood Pressure 150/90 H 06/09/25 15:48 Pulse Oximetry 97 06/09/25 15:48 Oxygen Delivery Room Air 06/09/25 10:41 Procedures Feeding Tube Replacement Feeding Tube #1: Feeding Tube Placement Date: 06/09/25 Feeding Tube Placement Time: 11:33 Type of Tube: G-J Tube Insertion Site Prior to Procedure: clean Tube Used for Reinsertion: patient's own Hungarian Tube Size (F): 16 Balloon size (mL): 5 Verification of Placement: KUB Patient Tolerated Procedure: well Complications: other (None) Medical Decision Making MDM Narrative Medical decision making narrative: PATIENT CAME WITH PULLED G-TUBE PATIENT IS NONVERBAL A NEW TUBE PLACED BY ME WITHOUT ANY COMPLICATION. GASTROGRAFIN, CONFIRMING THE PLACEMENT. Differential Diagnosis Differential Diagnosis: ABOVE Vital Signs Vital Signs: Vital Signs Temperature 36.7 C 06/09/25 10:41 Pulse Rate 94 06/09/25 10:41 Respiratory Rate 20 06/09/25 10:41 Pulse Oximetry 98 06/09/25 10:41 Oxygen Delivery Room Air 06/09/25 10:41 Temperature 36.7 C 06/09/25 10:41 Pulse Rate 79 06/09/25 15:48 Respiratory Rate 18 06/09/25 15:48 Blood Pressure 150/90 H 06/09/25 15:48 Pulse Oximetry 97 06/09/25 15:48 Oxygen Delivery Room Air 06/09/25 10:41 Imaging Data Radiologist's impression: Impressions Abdomen X-Ray 06/09/25 14:10 Impression: 1. Feeding tube in appropriate location Critical Care Time Critical Care Time Critical Care Time: No Discharge Plan Discharge Clinical Impression: Visit for feeding tube placement Patient Disposition: NH Snf/Asst Living Condition: Improved Instructions: How to Use and Care for Your PEG Tube (DC) Additional Instructions: RETURN IF SYMPTOMS ARE WORSENING , CALL YOUR FAMILY PHYSICIAN FOR APPOINTMENT, TAKE TYLENOL NEEDED FOR ACHES AND PAIN, CONTINUE HOME MEDICATIONS. Patient Language: Georgian Prescriptions: No Action aspirin 81 mg tablet,chewable 81 mg feeding tube DAILY atorvastatin 80 mg tablet 80 mg feeding tube HS cholecalciferol (vitamin D3) 25 mcg (1,000 unit) capsule 25 mcg feeding tube DAILY famotidine 20 mg tablet 20 mg feeding tube BID carvedilol 6.25 mg tablet 6.25 mg feeding tube BID magnesium citrate Solution 300 ml feeding tube DAILY PRN (Reason: Constipation) Rx Instructions: give per peg in am as needed for constipation if no results after enema ferrous sulfate 220 mg (44 mg iron)/5 mL Elixir 330 mg feeding tube BID Ventolin HFA 2 puff inhalation PRN PRN (Reason: Wheezing) acetaminophen 650 mg feeding tube Q4H PRN (Reason: Pain (Scale Score 1-3)/fever) ascorbic acid (vitamin C) [Vitamin C] 500 mg tablet 500 mg feeding tube DAILY vancomycin 1,000 mg Recon Soln 125 mg feeding tube Q6HR 5 Days Qty: 20 0RF cefuroxime axetil 250 mg Tablet 500 mg feeding tube Q12HR 4 Days Qty: 16 0RF midodrine 10 mg Tablet 5 mg feeding tube TID 7 Days Qty: 11 0RF doxycycline hyclate 100 mg tablet 100 mg feeding tube BID Qty: 10 0RF amoxicillin-pot clavulanate 875-125 mg tablet 1 tablet feeding tube Q12H Qty: 10 0RF ondansetron HCl [Zofran] 4 mg Tablet 4 mg feeding tube Q6H PRN (Reason: Nausea And Vomiting) ezetimibe 10 mg tablet 10 mg feeding tube .every bedtime Rx Instructions: 10mg every bedtime lisinopril 5 mg tablet 5 mg feeding tube DAILY silver sulfadiazine 1 % cream 1 applic TOPICAL DAILY Rx Instructions: APPLY TO LOWER ABDOMEN TOPICALLY EVERY DAY FOR WOUND CARE. CLEANSE WITH WC/NS. APPLY SSD COLLAGEN POWDER CALCIUM ALGINATE AND COVER WITH [place] DRESSING. bisacodyl 10 mg suppository 10 mg RECTAL DAILY PRN (Reason: constipation) Rx Instructions: INSERT 1 SUPPOSITORY RECTALLY NEEDED FOR CONSTIPATION DAILY IF NO RESULTS FOR MOM. Fleet Enema 19-7 gram/118 mL enema 118 ml RECTAL DAILY PRN (Reason: constipation) Rx Instructions: INSERT 1 APPLICATION RECTALLY NEEDED FOR CONSTIPATION IF NO RESULTS 1 DAY AFTER SUPPOSITORY. Follow-up/Referrals: Sherrie,Monalisa Snowden MD [Primary Care Provider]
--- OUTSIDE RECORDS SUMMARY | 2025-06-09 11:23 | XMS_ITS | Clinical Summary ---
Author Organization [facility] Address [address] [place] [address] Care Team Providers Care Social Service Agency Director Name Role Phone None, Provider MD Primary Care Provider Unavaila ble Allergies No known active allergies Medications budesonide-form oterol 80-4.5 MCG/ACT inhaler Inhale 2 puffs into the lungs 2 (two) times daily. Active albuterol sulfate HFA 108 (90 Base) MCG/ACT inhaler Inhale 2 puffs into the lungs every 6 (six) hours as needed for Wheezing. Active clonazePAM 0.5 MG tabletIndicatio ns:G tube feedings ([facility]) 1 tablet (0.5 mg total) by [...] of 2) 2011 COVID-19 Vaccine ( - 2024-2 6 season) 2025 Influenza Adult (#1) 2025 RSV Immunization or 60+ Years (1 - 1-dose 75+ series) 2036 Hepatitis A Vaccines Aged Out No long er eligible based on patient's age to complete this topic Meningococcal B Vaccine Aged Out No l [...] and discharge planning General No Connie Williamson, OUTREACH WORKER Medical Devices Implanted Type Area Skinner Pelts Device Identifier Shelf Expiration Date Model / Serial / Lot Peg Kit 24fr Push- Non-Safety - [id number] Implanted:Qt y: 1 on 11/20/2020 by Dank Damian MD at [facility] Tube Implant N/A: Abdomen [employer] [id number] 07/11/2021 [id number] / / [id number] Insurance [facility] MEDICAID MEDICARE Advance Directives Documents on File Type Date Recorded Patient Phy Therapist Expl anation Advance Directives and Living Will [...] 5:23 PM 11/09/2020 4:47 AM Care Teams Social Service Agency Director Relationship Specialty Start Date End Date None, Provider, PCP - General 11/07/20
--- OUTSIDE RECORDS SUMMARY | 2025-06-09 11:23 | XMS_ITS | Clinical Summary ---
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 This disclosure is being madepursuant to the Care Everywhere program and may not contain all information available regarding this patient. Last updated 18.[facility] Allergies No known active allergies Medications * [...] 05/15/2021 Immunizations Immunization Administration Dates Next Due Redeem primary monoval ent 12+ yr 0.3mL Purple [...] Oxygen Concentration 21% 06/28/2021 1 :13 AM [employer] Weight 47.1 kg (103 lb 12.8 oz) [...] 1980 ZOSTER VACCINE (1 of 2) 2011 DEPRESSION SCREENING 08/02/2024 COVID-19 VACCINE (3 - 2024-2 6 season) 2025 07/29/2021, 06/30/2021 INFLUENZA VACCINE (#1) 2025 , 07/11/2019, 04/16/2015 [...] Last Indicated C DIFF 05/19/2021 05/19/2021 Insurance [facility] MEDICAID - [place] Advance Directives * Full Code (Latest Code Status on File) Date Activated Date Inactivated Comments 10/27/2021 7:50 AM 10/31/2021 3:10 PM * Full Code Date Activated Date Inactivated Comments 06/23/2021 1:24 PM 06/30/2021 7:20 PM * Full Code Date Activated Date Inactivated Comments 05/15/2021 5:48 PM 05/22/2021 7:52 PM Care Teams Cotton Bag Sewer Relationship Specialty Start Date End Date Monalisa Balderas MD [address] [place] [address] [place] [id number] PCP - General Internal Medicine 05/15/21
--- NOTE | 2025-06-09 11:28 | PC.NURSE ---
verbal order for normal saline to place G tube per Dr. Cano. tube placed. 5 mL normal saline used to inflate the balloon.
[2025-06-09 12:20] VITALS: RESP 20; O2SAT 98
[2025-06-09 13:21] VITALS: BP 151/102; PULSE 74; RESP 19; O2SAT 98
--- NOTE | 2025-06-09 13:22 | PC.NURSE ---
new G-tube placed by EDP, pt tolerated the procedure without any difficulty.
[2025-06-09 15:48] VITALS: BP 150/90; PULSE 79; RESP 18; O2SAT 97
== END 2025-06-09 15:51 ==
PROVIDERS: Emergency Provider Emergency Medicine; PCP Internal Medicine
DX: Z43.1 Encounter for attention to gastrostomy (principal); I69.951 Hemiplegia and hemiparesis following unspecified cerebrovascular disease affecting right dominant side; I69.991 Dysphagia following unspecified cerebrovascular disease; I69.920 Aphasia following unspecified cerebrovascular disease; R13.10 Dysphagia, unspecified; J44.9 Chronic obstructive pulmonary disease, unspecified; E78.00 Pure hypercholesterolemia, unspecified; D64.9 Anemia, unspecified; I10 Essential (primary) hypertension; K21.00 Gastro-esophageal reflux disease with esophagitis, without bleeding; F32.A Depression, unspecified; F17.210 Nicotine dependence, cigarettes, uncomplicated; Z79.82 Long term (current) use of aspirin; Z79.899 Other long term (current) drug therapy
CPT/HCPCS: 43762; 99283